=== PATIENT | male | born 1940 | race Caucasian/White ===

== ENCOUNTER 2017-07-19 17:53 | Inpatient (IN) | payer MEDICARE, MEDICAID ==
[~2017-07-19] VITALS: Ht 180.3 cm; Wt 52.2 kg
[2017-07-19 18:07] VITALS: BP 144/74
[2017-07-19] MEDS ORDERED: Unasyn 3gm Inj IVPB ONE (18:15)
--- NOTE | 2017-07-19 18:18 | Emergency Room Report ---
History of Present Illness General Chief Complaint: Male Urogenital Problems Source: Patient, Medical Record Present Illness HPI 77yo M sent fro SNF for MDRO UTI, sensitive to unasyn. Patient has no complaints. Per report, no documented fevers either. No urinary retention or dysuria. Dr. Cramer sent patient. Allergies: Coded Allergies: No Known Allergies (Unverified , 07/19/17) Patient History Past Medical History: see triage record Reviewed Nursing Documentation: PMH: Agreed; PSxH: Agreed Nursing Documentation-PMH Past Medical History: No History, Except For Hx Diabetes: Yes Review of Systems All Other Systems: negative except mentioned in HPI Physical Exam Vital Signs Date Time Temp Pulse Resp B/P (MAP) Pulse Ox O2 Delivery O2 Flow Rate FiO2 07/19/17 17:55 97.3 75 20 144/74 96 Room Air 97.3 Sp02 EP Interpretation: reviewed, normal General Appearance: no apparent distress, alert, non-toxic Head: normocephalic Eyes: bilateral eye normal inspection, bilateral eye PERRL, bilateral eye EOMI ENT: normal ENT inspection, hearing grossly normal, normal pharynx, no angioedema, normal voice, moist mucus membranes Neck: normal inspection, full range of motion, supple, supple/symm/no masses Respiratory: chest non-tender, lungs clear, normal breath sounds, chest symmetrical, palpation of chest normal Cardiovascular #1: normal peripheral pulses, regular rate, rhythm Cardiovascular #2: 2+ radial (R), 2+ radial (L) Gastrointestinal: normal inspection, non tender, soft, no mass, no guarding, no rebound Rectal: deferred Genitourinary: normal inspection, no CVA tenderness, penis normal, scrotum normal Musculoskeletal: back normal, gait/station normal, normal range of motion, non- tender, no calf tenderness Neurologic: alert, responsive, clinical research analyst III-XII nml as tested, motor strength/tone normal, sensory intact, speech normal Psychiatric: judgement/insight normal, memory normal, mood/affect normal, no suicidal/homicidal ideation Skin: normal color, no rash, warm/dry, normal turgor Lymphatic: no adenopathy Medical Decision Making Reaction to Intervention: Improved Diagnostic Impression: Primary Impression: Urinary tract infection ER Course Patient with drug resistant UTI, will be given a dose of IV antibiotics, follow- up with Dr. Samir Cramer. Urine cultures showed Proteus that is sensitive to bactrim so will dc with this. normal wbc, culture sent with patient, Dr. Samir Cramer not answering, pateitn stable, will dc with bactrim dc 1 tab po bid x 28d Last Vital Signs Date Time Temp Pulse Resp B/P (MAP) Pulse Ox O2 Delivery O2 Flow Rate FiO2 07/19/17 18:07 97.3 20 144/74 96 Room Air 97.3 07/19/17 17:55 75 Status: unchanged Disposition: HOME, SELF-CARE Condition: Stable KANG DAVIS M.D Jul 19, 2017 18:18
[2017-07-19 18:43] LABS: BASOPHILS % (AUTO) 1.4 % (0.0-2.0); EOSINOPHILS % (AUTO) 6.3 % (0.0-3.0); HEMATOCRIT 38.6 % (42.0-52.0); HEMOGLOBIN 12.9 G/DL (14.2-18.0); LYMPHOCYTES % (AUTO) 30.3 % (20.0-45.0); MEAN CORPUSCULAR VOLUME 85 FL (80-99); MONOCYTES % (AUTO) 9.7 % (1.0-10.0); NEUTROPHILS % (AUTO) 52.3 % (45.0-75.0); PLATELET COUNT 356 K/UL (150-450); RED BLOOD COUNT 4.55 M/UL (4.70-6.10); RED CELL DISTRIBUTION WIDTH 14.9 % (11.6-14.8); WHITE BLOOD COUNT 6.7 K/UL (4.8-10.8)
[2017-07-19 18:55] LABS: APPEARANCE,URINE CLEAR; BILIRUBIN, URINE NEGATIVE (NEGATIVE); COLOR,URINE PALE YELLOW; GLUCOSE, URINE (UA) NEGATIVE (NEGATIVE); KETONES,URINE NEGATIVE (NEGATIVE); LEUKOCYTE ESTERASE ,URINE 1+ (NEGATIVE); NITRITE,URINE NEGATIVE (NEGATIVE); PH,URINE 6 (4.5-8.0); PROTEIN,URINE NEGATIVE (NEGATIVE); UROBILINOGEN,URINE NORMAL MG/DL (0.0-1.0)
[2017-07-19 18:58] LABS: ANION GAP 6 mmol/L (5-15); BLOOD UREA NITROGEN 34 mg/dL (7-18); CALCIUM 8.7 MG/DL (8.5-10.1); CARBON DIOXIDE 28 MMOL/L (21-32); CHLORIDE 103 MMOL/L (98-107); CREATININE 0.9 MG/DL (0.55-1.30); POTASSIUM 4.4 MMOL/L (3.5-5.1); SODIUM 137 MMOL/L (136-145)
[2017-07-19] MEDS ORDERED: Unasyn 3gm/NS 110ml IVPB ONE ×2 (19:00)
[2017-07-19] MEDS ORDERED: BACTRIM DS TAB1 EAC1 ORAL (19:04)
[2017-07-19] MEDS ORDERED: TOBRAMYCIN IV SCH (19:30)
[2017-07-19] MEDS ORDERED: NS IV SCH (19:30)
[2017-07-19] MEDS ORDERED: TOBRAMYCIN IV ONE (22:00)
[2017-07-19] MEDS ORDERED: NS IV ONE (22:00)
[2017-07-20] VITALS: BP 116/59
[2017-07-20] MEDS ORDERED: DOCUSATE SODIU100 MG ORAL (00:52)
[2017-07-20] MEDS ORDERED: MULTIVITAMINS1 EAC8 ORAL (00:52)
[2017-07-20] MEDS ORDERED: MELATONIN1 M2 PO (00:52)
[2017-07-20] MEDS ORDERED: TYLENOL650 MG/20. ORAL (00:52)
[2017-07-20] MEDS ORDERED: TAMSULOSIN HCL0.4 MG ORAL (00:52)
[2017-07-20] MEDS ORDERED: ZOFRAN4 M3 ORAL (00:52)
[2017-07-20] MEDS ORDERED: NORCO 5-325 TA1 EAC1 ORAL (00:52)
[2017-07-20] MEDS ORDERED: NITROFURANTOIN25 MG PO (00:59)
[2017-07-20] MEDS ORDERED: Acetaminophen 650mg/20.3ml ORAL PRN (01:00)
[2017-07-20] MEDS ORDERED: Norco 5mg/325mg tab ORAL PRN (01:00)
[2017-07-20] MEDS: D5 1/2NS 1,000 ML IV SCH ×2 (01:21→16:40)
[2017-07-20] MEDS: Ertapenem 1 GM in NS 55 ML IVPB SCH ×2 (01:22→20:50)
[2017-07-20 04:00] VITALS: BP 107/52
[2017-07-20 08:00] VITALS: BP 104/48
[2017-07-20] MEDS: Multivitamin w/Minerals tab ORAL SCH (08:37)
[2017-07-20] MEDS: Docusate 100mg cap ORAL SCH ×2 (08:37→18:00)
[2017-07-20 09:06] LABS: BASOPHILS % (AUTO) 1.4 % (0.0-2.0); EOSINOPHILS % (AUTO) 6.8 % (0.0-3.0); HEMATOCRIT 38.9 % (42.0-52.0); HEMOGLOBIN 13.2 G/DL (14.2-18.0); LYMPHOCYTES % (AUTO) 29.4 % (20.0-45.0); MEAN CORPUSCULAR VOLUME 85 FL (80-99); MONOCYTES % (AUTO) 9.1 % (1.0-10.0); NEUTROPHILS % (AUTO) 53.4 % (45.0-75.0); PLATELET COUNT 381 K/UL (150-450); RED BLOOD COUNT 4.59 M/UL (4.70-6.10); WHITE BLOOD COUNT 5.5 K/UL (4.8-10.8)
[2017-07-20 09:21] LABS: ANION GAP 7 mmol/L (5-15); BLOOD UREA NITROGEN 25 mg/dL (7-18); CALCIUM 9.1 MG/DL (8.5-10.1); CARBON DIOXIDE 27 MMOL/L (21-32); CHLORIDE 105 MMOL/L (98-107); SODIUM 139 MMOL/L (136-145)
[2017-07-20 12:00] VITALS: BP 110/51
--- NOTE | 2017-07-20 14:57 | Consultation ---
Consult Note Consult Note [id number] Gino James MD Jul 20, 2017 14:57
[2017-07-20 16:00] VITALS: BP 110/59
--- NOTE | 2017-07-20 17:30 | History and Physical Report ---
DATE OF ADMISSION: 07/20/2017 TIME: 1 p.m. CHIEF COMPLAINT: Resistant urinary tract infection, weakness, and lethargy. BRIEF HISTORY: This is a 77-year-old male from [facility], presented with increased lethargy and weakness. Urine culture showed resistant urinary tract infection, sent to [facility], diagnosed with the above, and admitted to medical floor for further treatment. Currently, calm in bed. No complaint. No chest pain. No shortness of breath. No nausea, vomiting, or diarrhea. PAST MEDICAL HISTORY: Includes weakness. PAST SURGICAL HISTORY: Appendectomy and hernia. MEDICATION: Include Flomax, Colace, hydrocodone, Zofran, and ertapenem. ALLERGIES: Denies. SOCIAL HISTORY: Positive smoking. No alcohol. No intravenous drug abuse. FAMILY HISTORY: Noncontributory. PHYSICAL EXAMINATION: GENERAL: Calm in bed, oriented x2, and in no acute distress. VITAL SIGNS: Temperature 97, pulse 94, respirations 19, and blood pressure 110/51. CARDIOVASCULAR: No murmurs. LUNGS: Distant and clear. ABDOMEN: Bowel sounds positive. Nontender and nondistended. EXTREMITIES: No cyanosis, clubbing, or edema. NEUROLOGIC: The patient moves all extremities. Slightly weak. LABORATORY DATA: Labs at this time show hemoglobin 13.2, otherwise CBC is normal. BMP show BUN 25, otherwise BMP is normal. Urinalysis, 1+ leukocyte esterase. ASSESSMENT: 1. Resistant urinary tract infection. 2. Weakness. 3. Lethargy. 4. Sepsis. 5. Anemia. PLAN: 1. Antibiotics per Infectious Disease. 2. OT, PT, and dietary evaluation. 3. CBC and BMP in the morning. 4. We will continue to follow this patient medically. Samir Cramer D.O. DR: CINDA JOB#: [id number] CC:
[2017-07-20 20:00] VITALS: BP 122/50
[2017-07-20] MEDS: Tamsulosin 0.4mg cap ORAL SCH (20:50)
[2017-07-21] VITALS: BP 118/86
[2017-07-21 04:00] VITALS: BP 109/43
[2017-07-21 06:37] LABS: BASOPHILS % (AUTO) 1.2 % (0.0-2.0); EOSINOPHILS % (AUTO) 4.5 % (0.0-3.0); HEMATOCRIT 38.9 % (42.0-52.0); LYMPHOCYTES % (AUTO) 25.5 % (20.0-45.0); MEAN CORPUSCULAR VOLUME 86 FL (80-99); MONOCYTES % (AUTO) 10.4 % (1.0-10.0); NEUTROPHILS % (AUTO) 58.4 % (45.0-75.0); PLATELET COUNT 359 K/UL (150-450); RED BLOOD COUNT 4.53 M/UL (4.70-6.10); RED CELL DISTRIBUTION WIDTH 15.1 % (11.6-14.8); WHITE BLOOD COUNT 7.5 K/UL (4.8-10.8)
[2017-07-21 07:12] LABS: ANION GAP 5 mmol/L (5-15); BLOOD UREA NITROGEN 27 mg/dL (7-18); CALCIUM 8.9 MG/DL (8.5-10.1); CARBON DIOXIDE 29 MMOL/L (21-32); CHLORIDE 106 MMOL/L (98-107); POTASSIUM 4.5 MMOL/L (3.5-5.1); SODIUM 140 MMOL/L (136-145)
[2017-07-21 08:00] VITALS: BP 109/45
[2017-07-21] MEDS: Multivitamin w/Minerals tab ORAL SCH (08:54)
[2017-07-21] MEDS: Docusate 100mg cap ORAL SCH ×2 (08:54→17:26)
[2017-07-21] MEDS: D5 1/2NS 1,000 ML IV SCH (08:58)
[2017-07-21 12:00] VITALS: BP 109/53
--- NOTE | 2017-07-21 14:32 | General Progress Note ---
Assessment/Plan Problem List: (1) Weak ICD Codes: R53.1 - Weakness SNOMED: 02662305 (2) Sepsis ICD Codes: A41.9 - Sepsis, unspecified organism SNOMED: 00160528 (3) Anemia ICD Codes: D64.9 - Anemia, unspecified SNOMED: 644820412 (4) Urinary tract infection ICD Codes: N39.0 - Urinary tract infection, site not specified SNOMED: 15595768 Status: stable, progressing, tolerating diet Assessment/Plan ot pt diet abx cbc bmp am Subjective Constitutional: Reports: weakness Allergies: Coded Allergies: No Known Allergies (Unverified , 07/19/17) All Systems: reviewed and negative except above Subjective sleepy calm Objective Last 24 Hour Vital Signs Date Time Temp Pulse Resp B/P (MAP) Pulse Ox O2 Delivery O2 Flow Rate FiO2 07/21/17 12:00 97.2 73 20 109/53 97 Room Air 97.2 07/21/17 08:00 97.2 79 20 109/45 96 Room Air 97.2 07/21/17 04:00 97.8 83 19 109/43 98 Room Air 97.8 07/21/17 00:00 97.9 98 19 118/86 98 Room Air 97.9 07/20/17 20:00 98.4 66 19 122/50 97 Room Air 98.4 07/20/17 16:00 97.8 82 17 110/59 97 Room Air 97.8 Intake and Output 07/20/17 07/21/17 19:00 07:00 Intake Total 720 ml 160 ml Balance 720 ml 160 ml Intake Oral 120 ml IV Total 720 ml 40 ml # Voids 4 2 Laboratory Tests 07/21/17 05:20: White Blood Count 7.5, Red Blood Count 4.53L, Hemoglobin 13.0L, Hematocrit 38.9L , Mean Corpuscular Volume 86, Mean Corpuscular Hemoglobin 28.8, Mean Corpuscular Hemoglobin Concent 33.5, Red Cell Distribution Width 15.1H, Platelet Count 359, Mean Platelet Volume 6.2L, Neutrophils (%) (Auto) 58.4, Lymphocytes (%) (Auto) 25.5, Monocytes (%) (Auto) 10.4H, Eosinophils (%) (Auto) 4.5H, Basophils (%) (Auto) 1.2, Sodium Level 140, Potassium Level 4.5, Chloride Level 106, Carbon Dioxide Level 29, Anion Gap 5, Blood Urea Nitrogen 27H, Creatinine 1.0, Estimat Glomerular Filtration Rate , Glucose Level 99, Calcium Level 8.9 Height (Feet): 5 Height (Inches): 11.00 Weight (Pounds): 115 General Appearance: lethargic EENT: normal ENT inspection Neck: normal alignment Cardiovascular: normal peripheral pulses, normal rate, regular rhythm Respiratory/Chest: chest wall non-tender, lungs clear, normal breath sounds Abdomen: normal bowel sounds, non tender, soft Extremities: normal inspection Edema: no edema noted Arm (L), no edema noted Arm (R), no edema noted Leg (L), no edema noted Leg (R), no edema noted Pedal (L), no edema noted Pedal (R), no edema noted Generalized Neurologic: motor weakness Skin: normal pigmentation, warm/dry KRISTINA SCHULTZ Jul 21, 2017 14:32
[2017-07-21 16:00] VITALS: BP 104/54
--- NOTE | 2017-07-21 19:36 | Infectious Diseases Prog Note ---
Assessment/Plan Assessment/Plan ASSESSMENT: The patient is a 77-year-old male with: Probable sepsis. Probable urinary tract infection (UCX ( SNF ) MDR Proteus mirabilis) Rule out osteomyelitis of the right heel. Diabetes. PLAN: continue the patient on ertapenem d# 3 CBC and BMP. Monitor cultures (urine/wound). MRI of the right foot to rule out osteomyelitis. Subjective Constitutional: Denies: no symptoms, fever, chills, fatigue, anorexia, drenching sweats, other Allergies: Coded Allergies: No Known Allergies (Unverified , 07/19/17) Objective Vital Signs Last 24 Hour Vital Signs Date Time Temp Pulse Resp B/P (MAP) Pulse Ox O2 Delivery O2 Flow Rate FiO2 07/21/17 16:00 97.5 80 19 104/54 96 Room Air 97.5 07/21/17 12:00 97.2 73 20 109/53 97 Room Air 97.2 07/21/17 08:00 97.2 79 20 109/45 96 Room Air 97.2 07/21/17 04:00 97.8 83 19 109/43 98 Room Air 97.8 07/21/17 00:00 97.9 98 19 118/86 98 Room Air 97.9 07/20/17 20:00 98.4 66 19 122/50 97 Room Air 98.4 Height (Feet): 5 Height (Inches): 11.00 Weight (Pounds): 115 HEENT: anicteric Respiratory/Chest: no respiratory distress Cardiovascular: regular rhythm Abdomen: no mass Microbiology Date/Time Source Procedure Growth Status 07/20/17 06:15 Wound Gram Stain Pending Resulted 07/20/17 06:15 Wound Culture - Preliminary Staphylococcus Aureus Resulted 07/19/17 18:40 Urine,Clean Catch Urine Culture - Preliminary Mixed Urogenital Contaminants Resulted Laboratory Tests Test 07/21/17 05:20 White Blood Count 7.5 K/UL (4.8-10.8) Red Blood Count 4.53 M/UL (4.70-6.10) L Hemoglobin 13.0 G/DL (14.2-18.0) L Hematocrit 38.9 % (42.0-52.0) L Mean Corpuscular Volume 86 FL (80-99) Mean Corpuscular Hemoglobin 28.8 PG (27.0-31.0) Mean Corpuscular Hemoglobin Concent 33.5 G/DL (32.0-36.0) Red Cell Distribution Width 15.1 % (11.6-14.8) H Platelet Count 359 K/UL (150-450) Mean Platelet Volume 6.2 FL (6.5-10.1) L Neutrophils (%) (Auto) 58.4 % (45.0-75.0) Lymphocytes (%) (Auto) 25.5 % (20.0-45.0) Monocytes (%) (Auto) 10.4 % (1.0-10.0) H Eosinophils (%) (Auto) 4.5 % (0.0-3.0) H Basophils (%) (Auto) 1.2 % (0.0-2.0) Sodium Level 140 MMOL/L (136-145) Potassium Level 4.5 MMOL/L (3.5-5.1) Chloride Level 106 MMOL/L (98-107) Carbon Dioxide Level 29 MMOL/L (21-32) Anion Gap 5 mmol/L (5-15) Blood Urea Nitrogen 27 mg/dL (7-18) H Creatinine 1.0 MG/DL (0.55-1.30) Estimat Glomerular Filtration Rate mL/min (>60) Glucose Level 99 MG/DL (74-106) Calcium Level 8.9 MG/DL (8.5-10.1) Current Medications Medications (Trade) Dose Ordered Sig/Nicole Route PRN Reason Start Time Stop Time Status Last Admin Dose Admin Acetaminophen (Tylenol) 650 mg Q4HR PRN ORAL Mild Pain/Temp > 100.5 07/20/17 01:00 08/19/17 00:59 Acetaminophen/ Hydrocodone Bitart ([place] 5/325) 1 tab Q4H PRN ORAL Moderate Pain (Pain Scale 4-6) 07/20/17 01:00 07/27/17 00:59 Dextrose/Sodium Chloride 1,000 ml @ 60 mls/hr [id number] IV 07/20/17 00:00 08/19/17 00:00 07/20/17 01:21 Docusate Sodium (Colace) 100 mg TWICE A DAY ORAL 07/20/17 09:00 08/19/17 08:59 07/21/17 08:54 Ertapenem 1 gm/ Sodium Chloride 110 ml @ 220 mls/hr Q24H IVPB 07/21/17 22:30 07/26/17 22:29 Multivitamins Therapeutic (Therapeutic Multivitamin) 1 ea DAILY ORAL 07/20/17 09:00 08/19/17 08:59 07/21/17 08:54 Ondansetron HCl (Zofran) 4 mg Q6H PRN ORAL Nausea & Vomiting 07/20/17 01:00 08/19/17 00:59 Tamsulosin HCl (Flomax) 0.4 mg BEDTIME ORAL 07/20/17 21:00 08/19/17 20:59 07/20/17 20:50 Gino James MD Jul 21, 2017 19:36
[2017-07-21 20:00] VITALS: BP 127/47
[2017-07-21] MEDS: Tamsulosin 0.4mg cap ORAL SCH (21:00)
[2017-07-21] MEDS: Ertapenem 1 GM in NS 110 ML IVPB SCH (21:01)
[2017-07-22] VITALS: BP 116/45
--- NOTE | 2017-07-22 01:15 | Consultation ---
DATE OF CONSULTATION: 07/21/2017 INFECTIOUS DISEASE CONSULTATION CONSULTING PHYSICIAN: Gino James M.D. REQUESTING PHYSICIAN: Samir Cramer D.O. REASON FOR CONSULTATION: Evaluation of the patient for urinary tract infection, antibiotic management, and sepsis. HISTORY OF PRESENT ILLNESS: This is a 77-year-old male with multiple medical problems, who was admitted to this medical center for lethargicness and weakness. The patient has a recent urine culture in half-way that showed evidence of multiple drug-resistant Proteus mirabilis more than 100,000 colonies. The patient was admitted here with impression of UTI and sepsis. An Infectious Disease consultation has been requested for further evaluation of the patient's antibiotic management. PAST MEDICAL HISTORY: Diabetes. MEDICATIONS: The patient has been started on ertapenem. ALLERGIES: No known drug allergies. SOCIAL HISTORY: The patient lives in a half-way. FAMILY HISTORY: Not available. REVIEW OF SYSTEMS: The patient is a poor historian. PHYSICAL EXAMINATION: VITAL SIGNS: Temperature 97.5 degrees, blood pressure 104/54, pulse 86, respiratory rate 18. HEENT: No pale conjunctivae. No icterus. NECK: No lymphadenopathy. CHEST: Clear. HEART: S1 and S2. ABDOMEN: Soft. EXTREMITIES: The patient has an unstageable right heel wound with surrounding erythema. LABORATORY DATA: White blood cells 7.5, hemoglobin 13, platelets 259. UA showed 2 to 4 white blood cells. BUN 27, creatinine 1. Urine culture is pending. Wound culture is pending. ASSESSMENT: The patient is a 77-year-old male with: 1. Probable sepsis. 2. Probable urinary tract infection (multiple drug-resistant Proteus mirabilis). 3. Rule out osteomyelitis of the right heel. PLAN: 1. We will continue the patient on ertapenem. 2. CBC and BMP. 3. Monitor cultures (urine/wound). 4. MRI of the right foot to rule out osteomyelitis. 5. Based on the patient's clinical course and labs, we will do further recommendations. Thank you, Dr. Samir Cramer, for allowing me to participate in the care of this patient. I will follow the patient with you during this hospitalization. Gino James M.D. DR: Kelly JOB#: [id number] CC:
[2017-07-22] MEDS: D5 1/2NS 1,000 ML IV SCH ×2 (02:22→17:45)
[2017-07-22 04:00] VITALS: BP 121/73
--- NOTE | 2017-07-22 07:30 | Wound Care Consultation ---
Wound Assessment Wound Assessment #1: Wound Number: 1 Wound Present on Admission: Yes New Wound: No Status Change of Wound: No Wound Location Body Site Modif: left Wound Location Body Site: trochanter Wound Type: pressure ulcer Sara Test: Does not Sara Pressure Ulcer Stage: III Wound Thickness: Full Thickness Wound Length: 2.5 Wound Width: 1.5 Wound Depth: 0.3 Percent of Wound [place]/Red: 100 Wound Drainage Description: Serosanguineous Wound Drainage Amount: Moderate Wound Drainage Odor: None/Absent Tissue Surrounding Wound: Erythemic Wound General Appearance: Reddened, Draining Wound Assessment #2: Wound Number: 2 Wound Present on Admission: Yes New Wound: No Status Change of Wound: No Wound Location Body Site Modif: left Wound Location Body Site: ischial tuberosity Wound Type: pressure ulcer Sara Test: Does not Sara Pressure Ulcer Stage: III Wound Thickness: Partial Thickness Wound Length: 2.0 Wound Width: 2.0 Wound Depth: 0.3 Percent of Wound [place]/Red: 100 Wound Drainage Description: Serosanguineous Wound Drainage Amount: Moderate Wound Drainage Odor: None/Absent Tissue Surrounding Wound: Erythemic Wound General Appearance: Reddened, Draining Wound Assessment #3: Wound Number: 3 Wound Present on Admission: Yes New Wound: No Status Change of Wound: No Wound Location Body Site Modif: right Wound Location Body Site: heel Wound Type: pressure ulcer Sara Test: Does not Sara Pressure Ulcer Stage: Unstageable Wound Thickness: Full Thickness Wound Length: 4.0 Wound Width: 3.5 Wound Depth: utd Percent of Wound Black/Brown: 100 Wound Drainage Description: Serosanguineous Wound Drainage Amount: Scant Wound Drainage Odor: None/Absent Tissue Surrounding Wound: Erythemic Wound General Appearance: Blackened, Draining Wound Assessment #4: Wound Number: 4 Wound Present on Admission: Yes New Wound: No Status Change of Wound: No Wound Location Body Site Modif: left Wound Location Body Site: heel Wound Type: pressure ulcer Sara Test: Does not Sara Pressure Ulcer Stage: Deep Tissue Injury Wound Thickness: Full Thickness Wound Length: 2.0 Wound Width: 3.5 Wound Depth: utd Percent of Wound Purple/Maroon: 100 Wound Drainage Amount: None Wound Drainage Odor: None/Absent Tissue Surrounding Wound: Intact Wound General Appearance: Reddened - maroon/purple Wound Assessment #5: Wound Number: 5 Wound Present on Admission: Yes New Wound: No Status Change of Wound: No Wound Location Body Site: perineal area Wound Type: chemical burn Sara Test: Does not Sara Percent of Wound [place]/Red: 100 Wound Drainage Amount: None Wound Drainage Odor: None/Absent Tissue Surrounding Wound: Erythemic Wound General Appearance: Reddened Wound Assessment #6: Wound Number: 6 Wound Present on Admission: Yes New Wound: No Status Change of Wound: No Wound Location Body Site Modif: left, lateral Wound Location Body Site: elbow Sara Test: Does not Sara Traumatic Injury Wounds: Skin Tear Wound Thickness: Partial Thickness Wound Length: 1.0 Wound Width: 1.0 Wound Depth: less than 0.1 Percent of Wound [place]/Red: 100 Wound Drainage Amount: None Wound Drainage Odor: None/Absent Tissue Surrounding Wound: Erythemic Wound General Appearance: Reddened Wound Comment #1 Left trochanter stage III pressure ulcer #2 Left ischial tuberosity stage III pressure ulcer #3 Right heel unstageable pressure ulcer with black eschar adhered to wound bed #4 Left heel DTI pressure ulcer #5 Perineal area chemical burn #6 Skin tear on left lateral elbow Recommendation -Local wound care per protocol -keep clean and dry -Offload both heels -Heel protector on both heels -Optimize nutrition -Low air loss mattress -Turn and reposition -Assess and f/u accordingly for any changes NISREEN PIÑA RN Jul 22, 2017 07:30
[2017-07-22 07:45] LABS: BASOPHILS % (AUTO) 1.4 % (0.0-2.0); EOSINOPHILS % (AUTO) 5.4 % (0.0-3.0); HEMATOCRIT 39.5 % (42.0-52.0); HEMOGLOBIN 13.4 G/DL (14.2-18.0); LYMPHOCYTES % (AUTO) 25.9 % (20.0-45.0); MEAN CORPUSCULAR VOLUME 85 FL (80-99); MONOCYTES % (AUTO) 8.9 % (1.0-10.0); NEUTROPHILS % (AUTO) 58.4 % (45.0-75.0); PLATELET COUNT 359 K/UL (150-450); RED BLOOD COUNT 4.66 M/UL (4.70-6.10); WHITE BLOOD COUNT 6.9 K/UL (4.8-10.8)
[2017-07-22 08:00] VITALS: BP 120/70
[2017-07-22 08:10] LABS: ANION GAP 7 mmol/L (5-15); BLOOD UREA NITROGEN 19 mg/dL (7-18); CALCIUM 8.7 MG/DL (8.5-10.1); CARBON DIOXIDE 27 MMOL/L (21-32); CHLORIDE 105 MMOL/L (98-107); POTASSIUM 4.3 MMOL/L (3.5-5.1); SODIUM 139 MMOL/L (136-145)
[2017-07-22] MEDS: Docusate 100mg cap ORAL SCH ×2 (09:00→17:29)
[2017-07-22] MEDS: Multivitamin w/Minerals tab ORAL SCH (09:21)
--- NOTE | 2017-07-22 11:28 | Infectious Diseases Prog Note ---
Assessment/Plan Assessment/Plan ASSESSMENT: The patient is a 77-year-old male with: Probable sepsis, SP Probable urinary tract infection (UCX ( SNF ) MDR Proteus mirabilis) repeat UCx: mixed GNR Rule out osteomyelitis of the right heel. WND CX : Staph A SP Lethargy Diabetes. PLAN: continue the patient on ertapenem d# 3 / 5 CBC and BMP. Monitor cultures (urine/wound). MRI of the right foot to rule out osteomyelitis. Subjective Constitutional: Denies: no symptoms, fever, chills, fatigue, anorexia, drenching sweats, other Allergies: Coded Allergies: No Known Allergies (Unverified , 07/19/17) Objective Vital Signs Last 24 Hour Vital Signs Date Time Temp Pulse Resp B/P (MAP) Pulse Ox O2 Delivery O2 Flow Rate FiO2 07/22/17 08:00 98.0 73 20 120/70 96 Room Air 98.0 07/22/17 04:00 97.4 71 19 121/73 96 Room Air 97.4 07/22/17 00:00 97.2 72 19 116/45 96 Room Air 97.2 07/21/17 20:00 97.3 81 19 127/47 96 Room Air 97.3 07/21/17 16:00 97.5 80 19 104/54 96 Room Air 97.5 07/21/17 12:00 97.2 73 20 109/53 97 Room Air 97.2 Height (Feet): 5 Height (Inches): 11.00 Weight (Pounds): 115 HEENT: atraumatic Respiratory/Chest: no accessory muscle use Cardiovascular: regular rhythm Abdomen: soft, non tender Microbiology Date/Time Source Procedure Growth Status 07/20/17 06:15 Wound Gram Stain Pending Resulted 07/20/17 06:15 Wound Culture - Preliminary Staphylococcus Aureus Resulted 07/20/17 15:12 Nasal Nares MRSA Culture - Final NO METHICILLIN RESISTANT STAPH AUREUS... Complete 07/19/17 18:40 Urine,Clean Catch Urine Culture - Final Mixed Urogenital Contaminants Complete 07/19/17 15:12 Rectum VRE Culture - Final NO VANCOMYCIN RESISTANT ENTEROCOCCUS ... Complete Laboratory Tests Test 07/22/17 05:50 White Blood Count 6.9 K/UL (4.8-10.8) Red Blood Count 4.66 M/UL (4.70-6.10) L Hemoglobin 13.4 G/DL (14.2-18.0) L Hematocrit 39.5 % (42.0-52.0) L Mean Corpuscular Volume 85 FL (80-99) Mean Corpuscular Hemoglobin 28.7 PG (27.0-31.0) Mean Corpuscular Hemoglobin Concent 33.8 G/DL (32.0-36.0) Red Cell Distribution Width 15.0 % (11.6-14.8) H Platelet Count 359 K/UL (150-450) Mean Platelet Volume 5.9 FL (6.5-10.1) L Neutrophils (%) (Auto) 58.4 % (45.0-75.0) Lymphocytes (%) (Auto) 25.9 % (20.0-45.0) Monocytes (%) (Auto) 8.9 % (1.0-10.0) Eosinophils (%) (Auto) 5.4 % (0.0-3.0) H Basophils (%) (Auto) 1.4 % (0.0-2.0) Sodium Level 139 MMOL/L (136-145) Potassium Level 4.3 MMOL/L (3.5-5.1) Chloride Level 105 MMOL/L (98-107) Carbon Dioxide Level 27 MMOL/L (21-32) Anion Gap 7 mmol/L (5-15) Blood Urea Nitrogen 19 mg/dL (7-18) H Creatinine 1.0 MG/DL (0.55-1.30) Estimat Glomerular Filtration Rate mL/min (>60) Glucose Level 90 MG/DL (74-106) Calcium Level 8.7 MG/DL (8.5-10.1) Current Medications Medications (Trade) Dose Ordered Sig/Nicole Route PRN Reason Start Time Stop Time Status Last Admin Dose Admin Acetaminophen (Tylenol) 650 mg Q4HR PRN ORAL Mild Pain/Temp > 100.5 07/20/17 01:00 08/19/17 00:59 Acetaminophen/ Hydrocodone Bitart ([place] 5/325) 1 tab Q4H PRN ORAL Moderate Pain (Pain Scale 4-6) 07/20/17 01:00 07/27/17 00:59 Dextrose/Sodium Chloride 1,000 ml @ 60 mls/hr [id number] IV 07/20/17 00:00 08/19/17 00:00 07/22/17 02:22 Docusate Sodium (Colace) 100 mg TWICE A DAY ORAL 07/20/17 09:00 08/19/17 08:59 07/21/17 08:54 Ertapenem 1 gm/ Sodium Chloride 110 ml @ 220 mls/hr Q24H IVPB 07/21/17 22:30 07/26/17 22:29 07/21/17 21:01 Multivitamins Therapeutic (Therapeutic Multivitamin) 1 ea DAILY ORAL 07/20/17 09:00 08/19/17 08:59 07/22/17 09:21 Ondansetron HCl (Zofran) 4 mg Q6H PRN ORAL Nausea & Vomiting 07/20/17 01:00 08/19/17 00:59 Tamsulosin HCl (Flomax) 0.4 mg BEDTIME ORAL 07/20/17 21:00 08/19/17 20:59 07/21/17 21:00 Gino James MD Jul 22, 2017 11:28
[2017-07-22 12:00] VITALS: BP 125/77
--- NOTE | 2017-07-22 13:07 | General Progress Note ---
Assessment/Plan Problem List: (1) Weak ICD Codes: R53.1 - Weakness SNOMED: 24840283 (2) Sepsis ICD Codes: A41.9 - Sepsis, unspecified organism SNOMED: 46147727 (3) Anemia ICD Codes: D64.9 - Anemia, unspecified SNOMED: 351563999 (4) Urinary tract infection ICD Codes: N39.0 - Urinary tract infection, site not specified SNOMED: 34114381 Status: stable, progressing, tolerating diet Assessment/Plan ot pt diet abx dc if clear by id Subjective Constitutional: Reports: weakness Allergies: Coded Allergies: No Known Allergies (Unverified , 07/19/17) All Systems: reviewed and negative except above Subjective sleepy calm Objective Last 24 Hour Vital Signs Date Time Temp Pulse Resp B/P (MAP) Pulse Ox O2 Delivery O2 Flow Rate FiO2 07/22/17 12:00 97.7 75 20 125/77 97 Room Air 97.7 07/22/17 08:00 98.0 73 20 120/70 96 Room Air 98.0 07/22/17 04:00 97.4 71 19 121/73 96 Room Air 97.4 07/22/17 00:00 97.2 72 19 116/45 96 Room Air 97.2 07/21/17 20:00 97.3 81 19 127/47 96 Room Air 97.3 07/21/17 16:00 97.5 80 19 104/54 96 Room Air 97.5 Intake and Output 07/21/17 07/22/17 19:00 07:00 Intake Total 590 ml 470 ml Output Total 250 ml Balance 340 ml 470 ml Intake Oral 590 ml 120 ml IV Total 350 ml Output Urine Total 250 ml # Voids 3 3 # Bowel Movements 1 1 Laboratory Tests 07/22/17 05:50: White Blood Count 6.9, Red Blood Count 4.66L, Hemoglobin 13.4L, Hematocrit 39.5L , Mean Corpuscular Volume 85, Mean Corpuscular Hemoglobin 28.7, Mean Corpuscular Hemoglobin Concent 33.8, Red Cell Distribution Width 15.0H, Platelet Count 359, Mean Platelet Volume 5.9L, Neutrophils (%) (Auto) 58.4, Lymphocytes (%) (Auto) 25.9, Monocytes (%) (Auto) 8.9, Eosinophils (%) (Auto) 5.4H, Basophils (%) (Auto) 1.4, Sodium Level 139, Potassium Level 4.3, Chloride Level 105, Carbon Dioxide Level 27, Anion Gap 7, Blood Urea Nitrogen 19H, Creatinine 1.0, Estimat Glomerular Filtration Rate , Glucose Level 90, Calcium Level 8.7 Height (Feet): 5 Height (Inches): 11.00 Weight (Pounds): 115 General Appearance: lethargic EENT: normal ENT inspection Neck: normal alignment Cardiovascular: normal peripheral pulses, normal rate, regular rhythm Respiratory/Chest: chest wall non-tender, lungs clear, normal breath sounds Abdomen: normal bowel sounds, non tender, soft Extremities: normal inspection Edema: no edema noted Arm (L), no edema noted Arm (R), no edema noted Leg (L), no edema noted Leg (R), no edema noted Pedal (L), no edema noted Pedal (R), no edema noted Generalized Neurologic: responsive, motor weakness Skin: normal pigmentation, warm/dry KRISTINA SCHULTZ Jul 22, 2017 13:07
[2017-07-22 16:00] VITALS: BP 105/49
--- NOTE | 2017-07-22 16:21 | Diagnostic Imaging Report ---
Indication: Large right heel wound, possible osteomyelitis Technique: Sagittal, coronal, and axial T 1 fast spin echo and fast spin echo STIR images of the hindfoot Comparison: none Findings: On the medial plantar surface of the heel pad, below the calcaneal tuberosity, there is a soft tissue defect, consistent with stated clinical history of foot ulcer. Deep to it, there is abnormal STIR signal which is fairly discrete. It appears Hospital and on the sagittal sequences, less so on the coronal sequences. Overall, this area measures 3.7 cm transverse by 3.7 cm AP by about 1.3 cm craniocaudad. A much smaller area of this is seen at the more medial aspect, measures 14 mm craniocaudad x 7 transverse x 26 mm AP and appears confluent on all of the sequences. Beyond the limits of this area, there is not much subcutaneous fat edema. No bone marrow abnormality of the calcaneus or any of the other bones is demonstrated. The large tendons appear grossly intact. Impression: No bone marrow edema to suggest osteomyelitis demonstrated. Medial heel pad superficial defect consistent with a clinical history of ulcer. Deep to this, there is a 3.7 x 3.7 x 1.3 cm area of abnormal STIR signal which on some of the projection is suggestive of an abscess and others suggestive of phlegmon. However, the medial portion of this is definitely discrete and confluent and suspicious for small subcutaneous abscess.
[2017-07-22 20:00] VITALS: BP 99/41
[2017-07-22] MEDS: Tamsulosin 0.4mg cap ORAL SCH (21:20)
[2017-07-22] MEDS: Ertapenem 1 GM in NS 110 ML IVPB SCH (21:59)
[2017-07-23 04:00] VITALS: BP 112/55
--- NOTE | 2017-07-23 08:44 | General Progress Note ---
Assessment/Plan Problem List: (1) Weak ICD Codes: R53.1 - Weakness SNOMED: 55957496 (2) Sepsis ICD Codes: A41.9 - Sepsis, unspecified organism SNOMED: 86844482 (3) Anemia ICD Codes: D64.9 - Anemia, unspecified SNOMED: 323896466 (4) Urinary tract infection ICD Codes: N39.0 - Urinary tract infection, site not specified SNOMED: 62440562 Status: stable, progressing, ambulating well Assessment/Plan ot pt diet abx cbc bmp am dc if clear by id Subjective Constitutional: Reports: weakness Allergies: Coded Allergies: No Known Allergies (Unverified , 07/19/17) All Systems: reviewed and negative except above Subjective sleepy calm Objective Last 24 Hour Vital Signs Date Time Temp Pulse Resp B/P (MAP) Pulse Ox O2 Delivery O2 Flow Rate FiO2 07/23/17 04:00 97.2 79 20 112/55 99 97.2 07/22/17 20:00 97.6 92 19 99/41 95 Room Air 97.6 07/22/17 16:00 97.6 81 18 105/49 97 Room Air 97.6 07/22/17 12:00 97.7 75 20 125/77 97 Room Air 97.7 Intake and Output 07/22/17 07/23/17 19:00 07:00 Intake Total 1540 ml Balance 1540 ml Intake Oral 800 ml IV Total 740 ml # Voids 4 # Bowel Movements 1 1 Height (Feet): 5 Height (Inches): 11.00 Weight (Pounds): 115 General Appearance: alert EENT: normal ENT inspection Neck: normal alignment Cardiovascular: normal peripheral pulses, normal rate, regular rhythm Respiratory/Chest: chest wall non-tender, lungs clear, normal breath sounds Abdomen: normal bowel sounds, non tender, soft Extremities: normal inspection Edema: no edema noted Arm (L), no edema noted Arm (R), no edema noted Leg (L), no edema noted Leg (R), no edema noted Pedal (L), no edema noted Pedal (R), no edema noted Generalized Neurologic: responsive, motor weakness Skin: normal pigmentation, warm/dry KRISTINA SCHULTZ Jul 23, 2017 08:44
[2017-07-23 08:50] VITALS: BP 106/53
[2017-07-23] MEDS: Docusate 100mg cap ORAL SCH ×2 (08:55→17:51)
[2017-07-23] MEDS: Multivitamin w/Minerals tab ORAL SCH (08:55)
[2017-07-23] MEDS: D5 1/2NS 1,000 ML IV SCH (11:51)
--- NOTE | 2017-07-23 11:51 | Consultation ---
History of Present Illness General Chief Complaint: Male Urogenital Problems Reason for Consultation: heel wound Present Illness HPI 77M multiple medical comorbidities here for medical care and management. during admission noted to have pressure ulcer on left heel. concerns for possible infection vs osteo so MRI performed. MRI with possible abscess. Surgery called to evaluate. Patient seen, chart reviewed, wounds/radiology reviewed. Allergies: Coded Allergies: No Known Allergies (Unverified , 07/19/17) Medication History Scheduled Docusate Sodium* (Docusate Sodium*), 100 MG ORAL TWICE A DAY, (Reported) Multivitamin With Minerals (Multivitamins With Minerals*), 1 TAB ORAL DAILY, ( Reported) Nitrofurantoin Macrocrystal (Nitrofurantoin), 100 MG PO BID, (Reported) Tamsulosin Hcl (Tamsulosin Hcl*), 0.4 MG ORAL BEDTIME, (Reported) Trimethoprim/Sulfamethoxazole 160/800* (Bactrim Ds Tablet*), 1 TAB ORAL Q12H Scheduled PRN Acetaminophen (Acetaminophen), 650 MG ORAL Q4HR PRN for Mild Pain/Temp > 100.5, (Reported) Hydrocodone Bit/Acetaminophen 5-325* ([place] 5-325 Tablet*), 1 TAB ORAL Q4H PRN for Moderate Pain (Pain Scale 4-6), (Reported) Melatonin (Melatonin), 3 MG PO for Insomnia, (Reported) Ondansetron* (Zofran*), 4 MG ORAL Q6H PRN for Nausea & Vomiting, (Reported) Patient History History Provided By: Patient, Medical Record, PMD Healthcare decision maker Resuscitation status Full Code Advanced Directive on File Past Medical/Surgical History Past Medical/Surgical History: (1) Chronic heel ulcer (2) Urinary tract infection (3) Anemia (4) Weak (5) Sepsis (6) Decubitus ulcer of right heel, unstageable Review of Systems All Other Systems: negative except mentioned in HPI Physical Exam General Appearance: no apparent distress Lines, tubes and drains: peripheral HEENT: PERRL Neck: normal inspection Respiratory/Chest: lungs clear, normal breath sounds Cardiovascular/Chest: normal rate, other - decreased peripheral lower extremity pulses but with good cap refill Abdomen: normal bowel sounds, non tender, soft, no organomegaly, no mass Extremities: other - left heel 2cm pressure ulcer with eschar. no signs of infeciton. no drainage. Skin Exam: normal pigmentation Neurologic: alert, responsive Last 24 Hour Vital Signs Date Time Temp Pulse Resp B/P (MAP) Pulse Ox O2 Delivery O2 Flow Rate FiO2 07/23/17 08:50 98.0 83 20 106/53 93 98.0 07/23/17 04:00 97.2 79 20 112/55 99 97.2 07/22/17 20:00 97.6 92 19 99/41 95 Room Air 97.6 07/22/17 16:00 97.6 81 18 105/49 97 Room Air 97.6 07/22/17 12:00 97.7 75 20 125/77 97 Room Air 97.7 Intake and Output 07/22/17 07/23/17 19:00 07:00 Intake Total 1540 ml Balance 1540 ml Intake Oral 800 ml IV Total 740 ml # Voids 4 # Bowel Movements 1 1 Height (Feet): 5 Height (Inches): 11.00 Weight (Pounds): 115 Medications Current Medications Medications (Trade) Dose Ordered Sig/Nicole Route PRN Reason Start Time Stop Time Status Last Admin Dose Admin Acetaminophen (Tylenol) 650 mg Q4HR PRN ORAL Mild Pain/Temp > 100.5 07/20/17 01:00 08/19/17 00:59 Acetaminophen/ Hydrocodone Bitart ([place] 5/325) 1 tab Q4H PRN ORAL Moderate Pain (Pain Scale 4-6) 07/20/17 01:00 07/27/17 00:59 Dextrose/Sodium Chloride 1,000 ml @ 60 mls/hr [id number] IV 07/20/17 00:00 08/19/17 00:00 07/22/17 17:45 Docusate Sodium (Colace) 100 mg TWICE A DAY ORAL 07/20/17 09:00 08/19/17 08:59 07/23/17 08:55 Ertapenem 1 gm/ Sodium Chloride 110 ml @ 220 mls/hr Q24H IVPB 07/21/17 22:30 07/26/17 22:29 07/22/17 21:59 Multivitamins Therapeutic (Therapeutic Multivitamin) 1 ea DAILY ORAL 07/20/17 09:00 08/19/17 08:59 07/23/17 08:55 Ondansetron HCl (Zofran) 4 mg Q6H PRN ORAL Nausea & Vomiting 07/20/17 01:00 08/19/17 00:59 Tamsulosin HCl (Flomax) 0.4 mg BEDTIME ORAL 07/20/17 21:00 08/19/17 20:59 07/22/17 21:20 Assessment/Plan Problem List: (1) Decubitus ulcer of right heel, unstageable Assessment & Plan: 2cm stable decubitus ulcer on right heel with eschar. no signs of infection. no drainage. MRI reviewed. Impression: No bone marrow edema to suggest osteomyelitis demonstrated. Medial heel pad superficial defect consistent with a clinical history of ulcer. Deep to this, there is a 3.7 x 3.7 x 1.3 cm area of abnormal STIR signal which on some of the projection is suggestive of an abscess and others suggestive of phlegmon. However, the medial portion of this is definitely discrete and confluent and suspicious for small subcutaneous abscess. -wound evaluated and stable/chronic. no active infection. no abscess noted on exam. no areas of fluctuance, no drainage, no erythema. eschar stable and protective. -no surgical intervention necessary at this time -keep off wound -wound protective barrier -okay to d/c -follow up with me in 2-4 weeks as an outpatient for wound check. -return if worsening condition, infection, drainage from wound. ICD Codes: L89.610 - Pressure ulcer of right heel, unstageable SNOMED: 171419408 Status: stable Bentley Enrique Jul 23, 2017 11:51
[2017-07-23 12:00] VITALS: BP 113/46
[2017-07-23] MEDS ORDERED: INVANZ1 GM IVPB (14:27)
[2017-07-23] MEDS ORDERED: D5 1/2NS 1000ml IV ONE ×2 (14:59→18:51)
[2017-07-23 16:00] VITALS: BP 108/99
--- NOTE | 2017-07-24 10:32 | Discharge Summary ---
Discharge Summary Discharge Summary Discharge Summary DATE OF ADMISSION: 07/19/2017 DATE OF DISCHARGE: 07/23/2017 REASON FOR ADMISSION: 27 years old male with history of diabetes was sent from the [facility] facility for multidrug-resistant organism urinary tract infection sensitive to Unasyn. Per report no documented fevers. No urinary retention or dysuria. Workup in emergency room revealed stable vital signs, no leukocytosis. Patient was admitted for UTI for further management CONSULTANTS: ID specialist Dr. James surgery Dr. Enrique [facility] COURSE: Patient admitted to medical surgical floor. Infectious disease consult was requested. Patient started on antibiotics for multidrug-resistant Proteus mirabilis infection. Urine culture revealed mixed urogenital contaminants. ID specialist recommended to continue ertapenem for additional 2 days upon transfer back back to [facility]. Patient was working with physical and occupational therapists. Fall precautions were maintained. Patient had multiple decubitus ulcers present on admission, including right heel un-stageable pressure ulcer. Wound culture was positive for MRSA. ID was concerned of possible osteomyelitis of the right heel. MRI of the right heel was done subsequently and revealed no evidence of osteomyelitis. Surgeon was consulted for right heel pressure ulcer management, present on admission. According to surgeon, pressure ulcer appeared stable/chronic. No evidence of active infection or abscess noted on exam. No areas of fluctuance, no drainage, no erythema. Eschar was stable and protective. No surgical intervention was required at this time. Surgeon recommended to keep pressure off wound. Follow up in 2- 4 weeks with surgeon as outpatient for wound check. Surgeon cleared for discharge, but recommended to return if condition worsens, infection or drainage appear. Wound care for multiple pressure ulcers present on admission , was provided as per wound care nurse recommendation. Supportive care provided. Bowel regimen instituted. Pain management was addressed. Patient was stable for discharge back to [facility] FINAL DIAGNOSES: Probable sepsis Probably UTI with MDR Proteus mirabilis (urine culture from SNF) Diabetes mellitus Left trochanter stage III pressure ulcer, present on admission Left ischial pressure ulcer stage III, present on admission Right heel un-stageable pressure ulcer, present on admission Left heel deep tissue injury pressure ulcer, present on admission DISCHARGE MEDICATIONS: See Medication Reconciliation list. DISCHARGE INSTRUCTIONS: Patient was discharged to [facility] facility follow-up with medical doctor at the facility. I have been assigned to dictate discharge summary for this account. I was not involved in the patient's management. Fermin ([facility])Aster NP Jul 24, 2017 10:32
== END 2017-07-23 18:52 | DRG 871 ==
LOC: EDBD 17:53 → EMR 18:22 → 4E 20:53 → EDBEDREQ 21:50 → 4E 07-22 11:59
DX: A41.9 Sepsis, unspecified organism (principal); L89.223 Pressure ulcer of left hip, stage 3; L89.323 Pressure ulcer of left buttock, stage 3; N39.0 Urinary tract infection, site not specified; Z16.24 Resistance to multiple antibiotics; R53.1 Weakness; R53.83 Other fatigue; D64.9 Anemia, unspecified; E11.9 Type 2 diabetes mellitus without complications; B96.4 Proteus (mirabilis) (morganii) as the cause of diseases classified elsewhere; L89.620 Pressure ulcer of left heel, unstageable; L89.610 Pressure ulcer of right heel, unstageable; B95.62 Methicillin resistant Staphylococcus aureus infection as the cause of diseases classified elsewhere
CPT/HCPCS: 36415; 80048; 81001; 82962; 85025; 87070; 87081; 87086; 87181; 87205; 99285

== ENCOUNTER 2017-08-04 19:58 | Emergency (ER) | payer MEDICARE, MEDICAID ==
[~2017-08-04] VITALS: Ht 177.8 cm; Wt 65.8 kg
[~2017-08-04 19:58] MED LIST: BACTRIM DS TAB1 EAC1 ORAL; DOCUSATE SODIU100 MG ORAL; INVANZ1 GM IVPB; MELATONIN1 M2 PO; MULTIVITAMINS1 EAC8 ORAL; NITROFURANTOIN25 MG PO; NORCO 5-325 TA1 EAC1 ORAL; TAMSULOSIN HCL0.4 MG ORAL; TYLENOL650 MG/20. ORAL; ZOFRAN4 M3 ORAL
[2017-08-04 20:00] VITALS: BP 120/57
[2017-08-04] MEDS ORDERED: Ketorolac 60mg Inj IM ONE (21:00)
[2017-08-04] MEDS ORDERED: LORazepam 1mg tab ORAL ONE (21:00)
[2017-08-04 21:50] VITALS: BP 106/68
--- NOTE | 2017-08-04 22:19 | Emergency Room Report ---
History of Present Illness General Chief Complaint: Upper Extremity Injury Source: Patient, Medical Record, EMS, PMD Present Illness HPI This patient presents from a intermediate facility. Apparently had a fall several days ago. He underwent x-rays that were unremarkable at that time. He presents today for left shoulder pain. He also has some left hand erythema. He has no other complaints. Allergies: Coded Allergies: No Known Allergies (Unverified , 07/19/17) Patient History Past Medical History: see triage record, DM, other - weakness Social History: Denies: smoking, alcohol use, drug use Reviewed Nursing Documentation: PMH: Agreed; PSxH: Agreed Nursing Documentation-PMH Past Medical History: No History, Except For Hx Diabetes: Yes Hx Cancer: No Hx Gastrointestinal Problems: No Review of Systems All Other Systems: negative except mentioned in HPI Physical Exam Vital Signs Date Time Temp Pulse Resp B/P (MAP) Pulse Ox O2 Delivery O2 Flow Rate FiO2 08/04/17 19:51 98.0 87 20 123/64 95 Room Air 98.1 Sp02 EP Interpretation: reviewed, normal General Appearance: no apparent distress, alert, GCS 15, non-toxic Head: normocephalic, atraumatic Eyes: bilateral eye normal inspection, bilateral eye PERRL ENT: hearing grossly normal, normal pharynx, no angioedema, normal voice Neck: full range of motion, supple/symm/no masses Respiratory: chest non-tender, lungs clear, normal breath sounds, no respiratory distress, no retraction, no accessory muscle use, speaking full sentences Cardiovascular #1: regular rate, rhythm, no edema Gastrointestinal: normal bowel sounds, non tender, soft, non-distended, no guarding, no rebound Rectal: deferred Musculoskeletal: other - Anterior depression R. shoulder. R. arm held flexed and internally rotated. Unable to ROM. Neurologic: alert, oriented x3, responsive, motor strength/tone normal, sensory intact, speech normal Psychiatric: judgement/insight normal, memory normal, mood/affect normal, no suicidal/homicidal ideation Skin: normal color, no rash, warm/dry, well hydrated Medical Decision Making Diagnostic Impression: Primary Impression: Dislocation of shoulder, right, closed Additional Impression: Cellulitis ER Course This patient has a right shoulder dislocation. Also, unfortunately, given the length of time that the shoulders been dislocated, the shoulder is now frozen. I am unable to range of motion the shoulder. X-ray of the right shoulder shows a large amount of calcifications in the surrounding soft tissue. The patient is self responsible and competent. He adamantly refused IV placement or labs. The patient adamantly declined admission to the hospital. He did greet to IM Toradol and oral Ativan to see if I could reduce his shoulder with only these medications. However, the shoulder is frozen and I was unable to even get minimal motion out of the left shoulder. I recommended to this patient that he undergo conscious sedation. He adamantly declined. I also offered and recommended that he be admitted to the hospital and he could undergo general anesthesia and evaluation by an orthopedic surgeon. However he continued to decline. He demanded to go back to the intermediate facility. He states that he will reconsider this tomorrow. He wants to discuss his options with his friend. I was unable to contact the patient's primary care physician despite multiple attempts. The patient has a dislocated shoulder that has been out for some time. Likely this shoulder will need reduction under general anesthesia. The patient was discharged to the intermediate facility. Possibly, tomorrow after he can speak with his friend and his primary care physician can further discuss with him, this patient to return to get a proper treatment. Regardless, it is on emergency medical condition that needs immediate intervention. He also has some erythema over the left hand. This could be an early cellulitis. I will go ahead and start the patient on a course of antibiotics. Unfortunately I was unable to further intervene on this patient's behalf. The patient was returned to the intermediate facility. Other X-Ray Diagnostic Results Other X-Ray Diagnostic Results : X-Ray ordered: R. shoulder # of Views/Limited Vs Complete: Complete Indication: Pain EP Interpretation: Yes Interpretation: other - R. Shoulder anteriorly dislocated. Last Vital Signs Date Time Temp Pulse Resp B/P (MAP) Pulse Ox O2 Delivery O2 Flow Rate FiO2 08/04/17 20:00 98.1 87 26 120/57 96 Room Air 98.1 Disposition: HOME, SELF-CARE Condition: Stable Referrals: KRISTINA SCHULTZ (PCP) ELLIS PAGAN D.O. Aug 04, 2017 22:19
[2017-08-04 23:40] VITALS: BP 117/78
--- NOTE | 2017-08-05 09:37 | Diagnostic Imaging Report ---
Indication: Reason For Exam: PAIN Technique: 3 views of the left shoulder Comparison: none Findings: There is an anterior dislocation of the left humeral head. There is extensive surrounding heterotopic ossification and irregularity of the humeral head as well as of the glenoid. Considerable degenerative remodeling of the humeral head also noted. The bones are osteoporotic. No definite acute fractures. Impression: Anterior dislocation of the left shoulder. Given the extent of associated degenerative change and surrounding heterotopic ossification, suspect this is chronic. No acute bony trauma Possible chronic change This agrees with the findings reported by the emergency room physician in the electronic medical record
== END 2017-08-04 23:40 | disposition home or self-care (01) ==
LOC: EDBD 19:58 → EMR 20:16
DX: S43.015A Anterior dislocation of left humerus, initial encounter (principal); W19.XXXA Unspecified fall, initial encounter; Y92.129 Unspecified place in nursing home as the place of occurrence of the external cause; L03.114 Cellulitis of left upper limb; E11.9 Type 2 diabetes mellitus without complications
CPT/HCPCS: 96372; 99283

== ENCOUNTER 2017-08-05 10:28 | Inpatient (IN) | payer MEDICARE, MEDICAID ==
[~2017-08-05] VITALS: Ht 165.1 cm; Wt 54.4 kg
[2017-08-05 10:45] VITALS: BP 108/50
[2017-08-05 11:13] LABS: BASOPHILS % (AUTO) 1.3 % (0.0-2.0); EOSINOPHILS % (AUTO) 4.2 % (0.0-3.0); HEMATOCRIT 33.9 % (42.0-52.0); HEMOGLOBIN 11.3 G/DL (14.2-18.0); LYMPHOCYTES % (AUTO) 14.2 % (20.0-45.0); MEAN CORPUSCULAR VOLUME 84 FL (80-99); MONOCYTES % (AUTO) 11.4 % (1.0-10.0); NEUTROPHILS % (AUTO) 68.9 % (45.0-75.0); PLATELET COUNT 407 K/UL (150-450); RED BLOOD COUNT 4.03 M/UL (4.70-6.10); RED CELL DISTRIBUTION WIDTH 14.3 % (11.6-14.8); WHITE BLOOD COUNT 7.8 K/UL (4.8-10.8)
[2017-08-05 11:25] LABS: ANION GAP 7 mmol/L (5-15); BLOOD UREA NITROGEN 52 mg/dL (7-18); CALCIUM 9.4 MG/DL (8.5-10.1); CARBON DIOXIDE 29 MMOL/L (21-32); CHLORIDE 105 MMOL/L (98-107); CREATININE 1.4 MG/DL (0.55-1.30); POTASSIUM 4.4 MMOL/L (3.5-5.1); SODIUM 141 MMOL/L (136-145)
[2017-08-05 11:30] LABS: ALANINE AMINOTRANSFERASE 43 U/L (12-78); ALBUMIN 2.5 G/DL (3.4-5.0); ALBUMIN/GLOBULIN RATIO 0.5 (1.0-2.7); ALKALINE PHOSPHATASE 68 U/L (46-116); ASPARTATE AMINO TRANSFERASE 24 U/L (15-37); BILIRUBIN,TOTAL 0.3 MG/DL (0.2-1.0)
[2017-08-05 12:30] VITALS: BP 117/62
--- NOTE | 2017-08-05 13:20 | Emergency Room Report ---
History of Present Illness General Chief Complaint: Shoulder Injury Source: Patient, Medical Record Present Illness HPI 77-year-old male presents ED for evaluation. [facility] with [facility]ity to left shoulder. Sustained an injury earlier this week. Was seen here yesterday and noted to have shoulder dislocation. Patient refused all forms of reduction options and wanted to be discharged back to facility. Patient is here back because he wants to have it fixed. Denies any pain at this time. Denies any other injuries. No other aggravating relieving factors. Denies any other associated symptoms Allergies: Coded Allergies: No Known Allergies (Unverified , 07/19/17) Patient History Past Medical History: DM Past Surgical History: none Pertinent Family History: none Social History: Denies: smoking, alcohol use, drug use Immunizations: UTD Reviewed Nursing Documentation: PMH: Agreed; PSxH: Agreed Nursing Documentation-PMH Past Medical History: No History, Except For Hx Diabetes: Yes Hx Cancer: No Hx Gastrointestinal Problems: No Review of Systems All Other Systems: negative except mentioned in HPI Physical Exam Vital Signs Date Time Temp Pulse Resp B/P (MAP) Pulse Ox O2 Delivery O2 Flow Rate FiO2 08/05/17 10:29 97.8 76 18 108/50 96 Room Air 97.9 Sp02 EP Interpretation: reviewed, normal General Appearance: no apparent distress, alert, GCS 15, non-toxic Head: normocephalic, atraumatic Eyes: bilateral eye normal inspection, bilateral eye PERRL ENT: hearing grossly normal, normal pharynx, no angioedema, normal voice Neck: full range of motion, supple/symm/no masses Respiratory: chest non-tender, lungs clear, normal breath sounds, speaking full sentences Cardiovascular #1: regular rate, rhythm, no edema Cardiovascular #2: 2+ carotid (R), 2+ carotid (L), 2+ radial (R), 2+ radial (L) , 2+ dorsalis pedis (R), 2+ dorsalis pedis (L) Gastrointestinal: normal bowel sounds, non tender, soft, non-distended, no guarding, no rebound Rectal: deferred Genitourinary: normal inspection, no CVA tenderness Musculoskeletal: back normal, gait/station normal, decreased range of motion - L shoulder Neurologic: alert, oriented x3, responsive, motor strength/tone normal, sensory intact, speech normal Psychiatric: judgement/insight normal, memory normal, mood/affect normal, no suicidal/homicidal ideation Reflexes: 3+ bicep (R), 3+ bicep (L), 3+ tricep (R), 3+ tricep (L), 3+ knee (R) , 3+ knee (L) Skin: normal color, no rash, warm/dry, well hydrated Lymphatic: no adenopathy Medical Decision Making Diagnostic Impression: Primary Impression: Shoulder dislocation Qualified Codes: S43.005A - Unspecified dislocation of left shoulder joint, initial encounter Additional Impression: Renal insufficiency ER Course Hospital Course 77-year-old male presents to ED with deformity to left shoulder Differential diagnoses include: fracture, dislocation, contusion Clinical course Patient placed on stretcher. After initial history and physical I ordered labs x-rays of L shoulder Labs reviewed- no leukocytosis noted, BUN/Cr elevated, hemoglobin/hematocrit okay Xray shows dislocation on Left shouldr Patient is not in pain. No neurological deficit. Deformity is now chronic. Attempt to reduce in ER will be very difficult given patient is declining procedural sedation. Patient did agree to option of reduction in OR Case discussed with Dr. Lucius Ghosh who agreed to consult on this case. Case discussed with Dr. Schultz who agreed to accept the patient to his service for further care and support i. I feel this is a highly complex case requiring extensive working including EKG/Rhythm strip, Xray/CT/US, Blood/urine lab work, repeat exams while in ED, and administration of strong opiates/narcotics for pain control, admission to hospital or close patient follow up. Diagnosis - shoulder dislocation, renal insufficiency Admitted to floor in serious condition Labs Test 08/05/17 10:56 White Blood Count 7.8 K/UL (4.8-10.8) Red Blood Count 4.03 M/UL (4.70-6.10) Hemoglobin 11.3 G/DL (14.2-18.0) Hematocrit 33.9 % (42.0-52.0) Mean Corpuscular Volume 84 FL (80-99) Mean Corpuscular Hemoglobin 28.0 PG (27.0-31.0) Mean Corpuscular Hemoglobin Concent 33.3 G/DL (32.0-36.0) Red Cell Distribution Width 14.3 % (11.6-14.8) Platelet Count 407 K/UL (150-450) Mean Platelet Volume 6.1 FL (6.5-10.1) Neutrophils (%) (Auto) 68.9 % (45.0-75.0) Lymphocytes (%) (Auto) 14.2 % (20.0-45.0) Monocytes (%) (Auto) 11.4 % (1.0-10.0) Eosinophils (%) (Auto) 4.2 % (0.0-3.0) Basophils (%) (Auto) 1.3 % (0.0-2.0) Prothrombin Time 10.6 SEC (9.30-11.50) Prothromb Time International Ratio 1.0 (0.9-1.1) Activated Partial Thromboplast Time 32 SEC (23-33) Sodium Level 141 MMOL/L (136-145) Potassium Level 4.4 MMOL/L (3.5-5.1) Chloride Level 105 MMOL/L (98-107) Carbon Dioxide Level 29 MMOL/L (21-32) Anion Gap 7 mmol/L (5-15) Blood Urea Nitrogen 52 mg/dL (7-18) Creatinine 1.4 MG/DL (0.55-1.30) Estimat Glomerular Filtration Rate mL/min (>60) Glucose Level 136 MG/DL (74-106) Calcium Level 9.4 MG/DL (8.5-10.1) Total Bilirubin 0.3 MG/DL (0.2-1.0) Aspartate Amino Transf (AST/SGOT) 24 U/L (15-37) Alanine Aminotransferase (ALT/SGPT) 43 U/L (12-78) Alkaline Phosphatase 68 U/L (46-116) Total Protein 7.9 G/DL (6.4-8.2) Albumin 2.5 G/DL (3.4-5.0) Globulin 5.4 g/dL Albumin/Globulin Ratio 0.5 (1.0-2.7) Other X-Ray Diagnostic Results Other X-Ray Diagnostic Results : X-Ray ordered: L shoulder # of Views/Limited Vs Complete: 3 View Indication: Pain EP Interpretation: Yes Interpretation: no soft tissue swelling, no fractures, other - shoulder dislocation Impression: Other - shoulder dislocation Electronically Signed by: Electronically signed by Abdirashid Kwan MD Last Vital Signs Date Time Temp Pulse Resp B/P (MAP) Pulse Ox O2 Delivery O2 Flow Rate FiO2 08/05/17 10:45 97.9 18 108/50 96 Room Air 97.9 08/05/17 10:29 76 Status: improved Disposition: ADMITTED INPATIENT Condition: Serious Referrals: KRISTINA SCHULTZ (PCP) Abdirashid Kwan MD Aug 05, 2017 13:20
--- NOTE | 2017-08-05 17:12 | Diagnostic Imaging Report ---
Indication: Pain Technique: 3 views of the left shoulder Comparison: none Findings: Again demonstrated is anterior dislocation of the left shoulder. Extensive surrounding heterotopic ossification is again noted, somewhat better visualized on the previous exam. No definite acute fractures. Impression: Positive for anterior left shoulder dislocation, unchanged over one they, per technologist reportedly chronic. Appearance also suggestive of chronicity, as previously reported
--- NOTE | 2017-08-05 17:15 | History and Physical Report ---
DATE OF ADMISSION: 08/05/2017 TIME: 1 p.m. CAREERS ADVISER: Lucius Ghosh M.D. CHIEF COMPLAINT: Left shoulder dislocation. BRIEF HISTORY: This is a 77-year-old male from [facility], who apparently fell about three days ago. He has had some left shoulder pain. He was found to have left shoulder dislocation, he came to the ER, refused treatment, and then currently returned for further treatment. Currently, calm in bed. No complaint. No chest pain. No shortness of breath. No nausea, vomiting, or diarrhea. PAST MEDICAL HISTORY: Includes anemia, renal insufficiency, and chronic heel ulcers. PAST SURGICAL HISTORY: None. MEDICATIONS: We will obtain list shortly. ALLERGIES: Denies. SOCIAL HISTORY: No smoking. No alcohol. No intravenous drug abuse. FAMILY HISTORY: Noncontributory. PHYSICAL EXAMINATION: GENERAL: Calm in bed, oriented x3, and in no acute distress. VITAL SIGNS: Temperature 97, pulse 76, respirations 18, and blood pressure 108/50. CARDIOVASCULAR: No murmurs. LUNGS: Distant and clear. ABDOMEN: Bowel sounds positive. Nontender. Nondistended. EXTREMITIES: Shows no cyanosis and no edema. Left shoulder is slightly swollen. He has guarding of his shoulder and limited range of motion about 50%. LABORATORY DATA: Labs, at this time, show hemoglobin 11.3, otherwise CBC is normal. BMP show BUN and creatinine are 52 and 1.4. Glucose 136. INR is 1.0. ASSESSMENT: Left shoulder dislocation status post fall, history of heel ulcer, decubitus ulcers, venous insufficiency, and anemia. PLAN: 1. Continue previous medications. 2. OT, PT, and dietary evaluation. 3. CBC and BMP in the morning. 4. Resume home medications. 5. Pain control. 6. Dr. Day and Dr. Ghosh to consult. 7. We will continue to follow this patient medically. Samir Cramer D.O. DR: CINDA JOB#: [id number] CC:
[2017-08-05] MEDS ORDERED: Morphine Sulfate 4mg/ml Inj IVP PRN (17:37)
[2017-08-05] MEDS: D5 1/2NS 1,000 ML IV SCH (17:55)
--- NOTE | 2017-08-05 19:30 | Consultation ---
DATE OF CONSULTATION: 08/05/2017 HISTORY OF PRESENT ILLNESS: The patient is a 77-year-old gentleman, who presents with 13-day history of left shoulder pain. The patient presented to ER yesterday and was diagnosed with a shoulder dislocation. He subsequently signed out AMA I believe and returned today to the ER. He is refusing any attempts to reduce the shoulder by the ER staff. Therefore, orthopedic consultation was obtained for further care and recommendation. PAST MEDICAL HISTORY: Reviewed from the intake chart. PAST SURGICAL HISTORY: Reviewed from the intake chart. MEDICATION: Reviewed from the intake chart. PHYSICAL EXAMINATION: Examination shows there is obvious prominence along the anterior aspect of the left shoulder. There is no ecchymosis, no swelling, and no gross deformity. The patient is actually sleeping and able to flex and extend his elbow and wrist. Radial and ulnar pulses +2. 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 DISCUSSION: At this point, I do not think it is acute. There is no swelling or ecchymosis to suggest recent trauma. I think it is chronic dislocation and therefore it would be very hard to perform this surgery. At this point, he is not really a good candidate for surgical intervention given that he has had this dislocation at least by his report, which I am not sure exactly, but at least 2 years. At this point, I have communicated my findings to the ER staff and though we . Lucius Ghosh M.D. DR: SEBASTIÁN JOB#: [id number] CC:
[2017-08-05 21:00] VITALS: BP 108/51
[2017-08-05] MEDS: Heparin 5000 units/ml inj SUBQ SCH (21:27)
--- NOTE | 2017-08-05 22:45 | Consultation ---
DATE OF CONSULTATION: 08/05/2017 NEPHROLOGY CONSULTATION CONSULTING PHYSICIAN: Mesha Day M.D. REFERRING PHYSICIAN: Samir Cramer D.O. REASON FOR CONSULTATION: Acute versus chronic renal failure. HISTORY OF PRESENT ILLNESS: The patient is a 77-year-old male with past medical history significant for chronic renal failure hypertension, baseline creatinine is unknown who had history of fall and left shoulder pain for the last three weeks. The patient apparently presented to emergency room yesterday complaining of left shoulder pain, found to have dislocation of the left shoulder. The patient refused any further treatment so went home and came back again today, was admitted for shoulder reduction, found to have creatinine of 1.4. I was called for management of renal disease and electrolyte imbalance. PAST MEDICAL HISTORY: Including 1. History of hypertension. 2. History of anemia. 3. History of heel ulcer. 4. Positive for history of diabetes. PAST SURGICAL HISTORY: None. MEDICATIONS: 1. MVI one tablet p.o. daily. 2. Ascorbic acid 500 mg p.o. daily. 3. Zinc sulfate 220 mg daily. 4. Morphine p.r.n. pain. FAMILY HISTORY: Negative for any history of heart disease or chronic kidney disease. SOCIAL HISTORY: Denies any history of tobacco, alcohol, or drug use. REVIEW OF SYSTEMS: GENERAL: Denies any weight loss, weight gain, fever, chills, night sweats. HEAD AND NECK: Denies any dysphagia, odynophagia, blurry vision, headache, or neck stiffness. PULMONARY: No shortness of breath. No cough or sputum. CARDIOVASCULAR: Denies any chest pain or palpitations. GASTROINTESTINAL: Denies any nausea, vomiting, diarrhea, hematemesis, hematochezia. GENITOURINARY: Denies any dysuria, frequency, or hematuria. MUSCULOSKELETAL: Complaining of left shoulder pain. PHYSICAL EXAMINATION: VITAL SIGNS: The patient has temperature of 98, pulse rate of 78, and respiratory rate of 18, and blood pressure of 108/50. HEAD AND NECK: No JVP. No LAD. No thyromegaly. Extraocular movements intact. Pupils are reactive to light and accommodation. LUNGS: Clear to auscultation. CARDIAC: Regular rate and rhythm. S1 and S2. No murmur. No rub. ABDOMEN: Soft, nontender, and nondistended. EXTREMITIES: No edema. No clubbing. No cyanosis. NEUROLOGIC: Cranial nerves II through XII within normal limit. Upper and lower grossly intact. LABORATORY AND DIAGNOSTIC DATA: WBC count of 7.8, hemoglobin of 11.3, hematocrit 33.9, platelet count of 407. Chemistry revealed sodium 141, potassium 4.4, chloride 105, bicarb 29, BUN of 52, creatinine 1.4, and calcium of 9.4. AST of 24 and ALT of 43. There is no UA. ASSESSMENT: 1. Acute renal failure, the etiology of acute renal failure is prerenal azotemia versus chronic kidney disease due to diabetic nephropathy. 2. Left shoulder dislocation. 3. Diabetes. PLAN: Plan for the patient to obtain UA. Check the random urine protein creatinine ratio to calculate the proteinuria. Check the urine sodium and creatinine to calculate fractional excretion of sodium. Monitoring Inputs and outputs. IV hydration. At the end, I would like to thank Dr. Samir Cramer, for allowing me to participate in the care of this patient. Mesha Day M.D. DR: Gregorio JOB#: [id number] CC:
[2017-08-06] VITALS: BP 146/83
[2017-08-06 04:00] VITALS: BP 135/61
[2017-08-06 07:31] LABS: ANION GAP 10 mmol/L (5-15); BLOOD UREA NITROGEN 42 mg/dL (7-18); CALCIUM 9.3 MG/DL (8.5-10.1); CARBON DIOXIDE 24 MMOL/L (21-32); CHLORIDE 106 MMOL/L (98-107); POTASSIUM 4.4 MMOL/L (3.5-5.1); SODIUM 140 MMOL/L (136-145)
[2017-08-06 07:44] LABS: BASOPHILS % (AUTO) 0.9 % (0.0-2.0); EOSINOPHILS % (AUTO) 5.5 % (0.0-3.0); HEMATOCRIT 34.1 % (42.0-52.0); HEMOGLOBIN 11.7 G/DL (14.2-18.0); LYMPHOCYTES % (AUTO) 17.3 % (20.0-45.0); MEAN CORPUSCULAR VOLUME 84 FL (80-99); MONOCYTES % (AUTO) 8.6 % (1.0-10.0); NEUTROPHILS % (AUTO) 67.6 % (45.0-75.0); PLATELET COUNT 431 K/UL (150-450); RED BLOOD COUNT 4.06 M/UL (4.70-6.10); RED CELL DISTRIBUTION WIDTH 14.2 % (11.6-14.8); WHITE BLOOD COUNT 6.9 K/UL (4.8-10.8)
[2017-08-06 08:00] VITALS: BP 127/50
[2017-08-06] MEDS: Ascorbic Acid 500mg tab ORAL SCH ×2 (08:26→08:39)
[2017-08-06] MEDS: Zinc Sulfate 220mg cap ORAL SCH ×2 (08:26→08:39)
[2017-08-06] MEDS: Heparin 5000 units/ml inj SUBQ SCH ×2 (08:28→08:40)
--- NOTE | 2017-08-06 09:15 | General Progress Note ---
Assessment/Plan Problem List: (1) Anemia ICD Codes: D64.9 - Anemia, unspecified SNOMED: 978129775 (2) Weak ICD Codes: R53.1 - Weakness SNOMED: 70509347 (3) Chronic heel ulcer ICD Codes: L97.409 - Non-pressure chronic ulcer of unspecified heel and midfoot with unspecified severity SNOMED: 33313534529098103 (4) Shoulder dislocation ICD Codes: S43.006A - Unspecified dislocation of unspecified shoulder joint, initial encounter SNOMED: 643315284, 630151213 Qualifiers: Qualified Codes: S43.005A - Unspecified dislocation of left shoulder joint, initial encounter Status: stable, progressing, tolerating diet Assessment/Plan ot pt pain control, dc if clear by ortho Subjective Constitutional: Reports: weakness Allergies: Coded Allergies: No Known Allergies (Unverified , 07/19/17) All Systems: reviewed and negative except above Subjective calm in bed, wants to leave Objective Last 24 Hour Vital Signs Date Time Temp Pulse Resp B/P (MAP) Pulse Ox O2 Delivery O2 Flow Rate FiO2 08/06/17 08:00 98.0 83 18 127/50 90 98.0 08/06/17 04:00 98.2 93 20 135/61 95 98.2 08/06/17 00:00 98.3 100 20 146/83 96 98.3 08/05/17 21:00 98.3 88 20 108/51 94 98.3 08/05/17 18:57 97.9 18 117/62 96 Room Air 97.9 08/05/17 12:30 97.9 18 117/62 96 Room Air 97.9 08/05/17 10:45 97.9 18 108/50 96 Room Air 97.9 08/05/17 10:29 97.8 76 18 108/50 96 Room Air 97.9 Intake and Output 08/05/17 08/06/17 19:00 07:00 Intake Total 540 ml 660 ml Balance 540 ml 660 ml Intake Oral 480 ml IV Total 60 ml 660 ml # Voids 2 4 Laboratory Tests 08/05/17 10:56: White Blood Count 7.8, Red Blood Count 4.03L, Hemoglobin 11.3L, Hematocrit 33.9L , Mean Corpuscular Volume 84, Mean Corpuscular Hemoglobin 28.0, Mean Corpuscular Hemoglobin Concent 33.3, Red Cell Distribution Width 14.3, Platelet Count 407, Mean Platelet Volume 6.1L, Neutrophils (%) (Auto) 68.9, Lymphocytes ( %) (Auto) 14.2L, Monocytes (%) (Auto) 11.4H, Eosinophils (%) (Auto) 4.2H, Basophils (%) (Auto) 1.3, Prothrombin Time 10.6, Prothromb Time International Ratio 1.0, Activated Partial Thromboplast Time 32, Sodium Level 141, Potassium Level 4.4, Chloride Level 105, Carbon Dioxide Level 29, Anion Gap 7, Blood Urea Nitrogen 52H, Creatinine 1.4H, Estimat Glomerular Filtration Rate , Glucose Level 136H, Calcium Level 9.4, Total Bilirubin 0.3, Aspartate Amino Transf (AST/ SGOT) 24, Alanine Aminotransferase (ALT/SGPT) 43, Alkaline Phosphatase 68, Total Protein 7.9, Albumin 2.5L, Globulin 5.4, Albumin/Globulin Ratio 0.5L 08/06/17 06:10: White Blood Count 6.9, Red Blood Count 4.06L, Hemoglobin 11.7L, Hematocrit 34.1L , Mean Corpuscular Volume 84, Mean Corpuscular Hemoglobin 28.9, Mean Corpuscular Hemoglobin Concent 34.5, Red Cell Distribution Width 14.2, Platelet Count 431, Mean Platelet Volume 6.0L, Neutrophils (%) (Auto) 67.6, Lymphocytes ( %) (Auto) 17.3L, Monocytes (%) (Auto) 8.6, Eosinophils (%) (Auto) 5.5H, Basophils (%) (Auto) 0.9, Sodium Level 140, Potassium Level 4.4, Chloride Level 106, Carbon Dioxide Level 24, Anion Gap 10, Blood Urea Nitrogen 42H, Creatinine 1.0, Estimat Glomerular Filtration Rate , Glucose Level 115H, Calcium Level 9.3 Height (Feet): 5 Height (Inches): 5.00 Weight (Pounds): 120 General Appearance: alert EENT: normal ENT inspection Neck: normal alignment Cardiovascular: normal peripheral pulses, normal rate, regular rhythm Respiratory/Chest: chest wall non-tender, lungs clear, normal breath sounds Abdomen: normal bowel sounds, non tender, soft Extremities: normal inspection Edema: no edema noted Arm (L), no edema noted Arm (R), no edema noted Leg (L), no edema noted Leg (R), no edema noted Pedal (L), no edema noted Pedal (R), no edema noted Generalized Neurologic: responsive, motor weakness Skin: normal pigmentation, warm/dry Objective l shoulder sl swollen, non tender KRISTINA SCHULTZ Aug 06, 2017 09:15
[2017-08-06] MEDS ORDERED: VITAMIN C500 M1 ORAL (09:51)
[2017-08-06] MEDS ORDERED: ZINC SULFATE220 M1 ORAL (09:51)
[2017-08-06] MEDS: D5 1/2NS 1,000 ML IV SCH (10:42)
[2017-08-06 12:00] VITALS: BP 125/53
[2017-08-06 16:00] VITALS: BP 122/56
[2017-08-06] MEDS ORDERED: D5 1/2NS 1000ml IV ONE (18:35)
--- NOTE | 2017-08-08 08:55 | Discharge Summary ---
Discharge Summary Discharge Summary Discharge Summary DATE OF ADMISSION: 08/05/2017 DATE OF DISCHARGE: When he 8 2017 REASON FOR ADMISSION: 77 years old male with history of diabetes, hypertension, anemia, presented to emergency department with deformity to left shoulder. Apparently the patient sustained injury earlier when he fell. Patient seen earlier in emergency department but refused all interventions and wanted to be sent back to shelter facility. He came that time agreeable to have interventions as necessary. He denied any pain, denied any other injury. Upon evaluation in emergency department patient was found to be in acute renal failure with BUN 52 , creatinine 1.4, albumin 2.5, x-ray of the left shoulder revealed left shoulder dislocation. Patient was anemic with hemoglobin 11.3, hematocrit 33.9. Patient was admitted for further management with diagnosis of left shoulder dislocation, acute renal failure, diabetes mellitus, anemia, chronic heel ulcer CONSULTANTS: cigar head piercer Dr. Day Orthopedic surgery Dr. Ghosh [facility] COURSE: Patient admitted to medical surgical floor. Orthopedic surgeon consult was requested. Surgeon seen and evaluated the patient and noted no ecchymosis or swelling to suggest recent trauma. According to surgeon it was likely chronic dislocation. Patient was not a good candidate for surgical intervention given that dislocation was old. He recommended conservative management. Pain management provided as needed, pain was controlled. Home medications were resumed. Patient was working with physical and occupational therapists. Truck Farmer seen and evaluated the patient in regards to acute renal failure. Patient was started on IV hydration. Renal parameters and electrolytes were closely monitored. Electrolytes were corrected as needed. Nephrotoxics were avoided. Next day creatinine down to 1.0 and BUN down to 42. Acute renal failure resolved. Hemoglobin and hematocrit were closely monitored, no change on the next day, likely patient baseline. Wound care provider for chronic heel ulcer present on admission. Blood sugar was managed with sliding scale insulin. Dietary evaluation was requested in regards to low albumin. [employer] Machine Operator recommended increase protein intake to improve wound healing. DVT prophylaxis provided. Patient was stable for discharge back to shelter facility. Due to rapid and unexpected improvement in patient condition, the patient was discharged in one day. FINAL DIAGNOSES: Left shoulder dislocation Acute renal failure , resolved Diabetes mellitus Anemia Chronic heel ulcer DISCHARGE MEDICATIONS: See Medication Reconciliation list. DISCHARGE INSTRUCTIONS: Patient was discharged to shelter facility. Follow up with medical doctor at the facility I have been assigned to dictate discharge summary for this account. I was not involved in the patient's management. Fermin ([facility]),Aster BRAGG Aug 08, 2017 08:55
== END 2017-08-06 18:36 | DRG 565 ==
LOC: EDBD 10:28 → EDUNIT# 10:28 → EMR 10:52 → 4E 11:26 → EDBEDREQ 11:39
DX: M24.812 Other specific joint derangements of left shoulder, not elsewhere classified (principal); N17.9 Acute kidney failure, unspecified; Y92.129 Unspecified place in nursing home as the place of occurrence of the external cause; M25.512 Pain in left shoulder; E11.9 Type 2 diabetes mellitus without complications; D64.9 Anemia, unspecified; L89.609 Pressure ulcer of unspecified heel, unspecified stage; I10 Essential (primary) hypertension; Z91.81 History of falling
CPT/HCPCS: 36415; 80048; 80053; 85025; 85610; 85730; 86850; 86900; 86901; 99285

== ENCOUNTER 2017-09-24 18:27 | Inpatient (IN) | payer MEDICARE, MEDICAID ==
[~2017-09-24] VITALS: Ht 180.3 cm; Wt 60.0 kg
[~2017-09-24 18:27] MED LIST changes: +VITAMIN C500 M1 ORAL; +ZINC SULFATE220 M1 ORAL
[2017-09-24] MEDS ORDERED: Cephalexin 250 MG/5 ML SUSP 100ml ORAL ONE (19:30)
[2017-09-24] MEDS ORDERED: Cephalexin 500mg cap ORAL ONE (19:45)
[2017-09-24] MEDS ORDERED: Cephalexin 500mg cap ONE (19:46)
[2017-09-24 20:53] LABS: APPEARANCE,URINE SLIGHTLY CLOUDY; BILIRUBIN, URINE NEGATIVE (NEGATIVE); COLOR,URINE PALE YELLOW; GLUCOSE, URINE (UA) NEGATIVE (NEGATIVE); KETONES,URINE 1+ (NEGATIVE); LEUKOCYTE ESTERASE ,URINE 3+ (NEGATIVE); NITRITE,URINE NEGATIVE (NEGATIVE); PH,URINE 7 (4.5-8.0); PROTEIN,URINE 3+ (NEGATIVE); UROBILINOGEN,URINE NORMAL MG/DL (0.0-1.0)
[2017-09-24 22:02] VITALS: BP 134/43
[2017-09-24] MEDS ORDERED: Zolpidem 5mg tab ORAL PRN (22:45)
[2017-09-24] MEDS ORDERED: Mylanta II UD 30ml ORAL PRN (22:45)
[2017-09-24] MEDS ORDERED: Norco 5mg/325mg tab ORAL PRN (22:45)
[2017-09-24] MEDS ORDERED: Miralax 17gm pkt ORAL PRN (22:45)
[2017-09-24] MEDS ORDERED: Ertapenem (INVanz) 1gm Inj IM ONE (22:45)
[2017-09-24] MEDS ORDERED: LORazepam Inj 2mg/ml 1ml IV PRN (22:45)
[2017-09-24] MEDS ORDERED: Morphine Sulfate 4mg/ml Inj IVP PRN (23:00)
[2017-09-24] MEDS ORDERED: Ertapenem 1 GM in NS 55 ML IVPB ONE (23:15)
[2017-09-24] MEDS ORDERED: Lidocaine 1% MPF 10mg/ml 5ml ONE (23:29)
[2017-09-24 23:48] VITALS: BP 95/54
[2017-09-25] VITALS (7 sets, daily range): BP systolic 97–146; BP diastolic 46–74
[2017-09-25 00:36] LABS: BASOPHILS % (AUTO) 0.6 % (0.0-2.0); EOSINOPHILS % (AUTO) 1.7 % (0.0-3.0); HEMATOCRIT 40.9 % (42.0-52.0); HEMOGLOBIN 13.3 G/DL (14.2-18.0); LYMPHOCYTES % (AUTO) 12.5 % (20.0-45.0); MEAN CORPUSCULAR VOLUME 82 FL (80-99); MONOCYTES % (AUTO) 8.2 % (1.0-10.0); PLATELET COUNT 424 K/UL (150-450); RED BLOOD COUNT 5.01 M/UL (4.70-6.10); RED CELL DISTRIBUTION WIDTH 14.3 % (11.6-14.8); WHITE BLOOD COUNT 16.7 K/UL (4.8-10.8)
[2017-09-25 01:03] LABS: ALANINE AMINOTRANSFERASE 12 U/L (12-78); ALBUMIN 3.7 G/DL (3.4-5.0); ALBUMIN/GLOBULIN RATIO 0.8 (1.0-2.7); ALKALINE PHOSPHATASE 80 U/L (46-116); ANION GAP 9 mmol/L (5-15); ASPARTATE AMINO TRANSFERASE 12 U/L (15-37); BILIRUBIN,TOTAL 0.6 MG/DL (0.2-1.0); BLOOD UREA NITROGEN 23 mg/dL (7-18); CALCIUM 9.4 MG/DL (8.5-10.1); CARBON DIOXIDE 28 MMOL/L (21-32); CHLORIDE 103 MMOL/L (98-107); CHOLESTEROL 245 MG/DL (< 200); CKMB 0.6 NG/ML (0.0-3.6); CREATININE 1.2 MG/DL (0.55-1.30); HDL CHOLESTEROL 59 MG/DL (40-60); POTASSIUM 4.4 MMOL/L (3.5-5.1); SODIUM 140 MMOL/L (136-145); TRIGLYCERIDES 110 MG/DL (30-150)
--- NOTE | 2017-09-25 01:07 | Emergency Room Report ---
History of Present Illness General Chief Complaint: Male Urogenital Problems Source: Medical Record Present Illness HPI Patient is a 77-year-old male sent in by residential for increased difficulty with urination. The patient was noted to have a resistant urinary tract infection. Patient was noted to have previous chronic dislocation to his left shoulder. History is markedly limited by patient's poor cooperation. Allergies: Coded Allergies: No Known Allergies (Unverified , 07/19/17) Patient History Past Medical History: see triage record Reviewed Nursing Documentation: PMH: Agreed; PSxH: Agreed Nursing Documentation-PMH Past Medical History: No History, Except For Hx Diabetes: Yes Hx Cancer: No Hx Gastrointestinal Problems: No Review of Systems All Other Systems: limited - by poor historian Physical Exam Vital Signs Date Time Temp Pulse Resp B/P (MAP) Pulse Ox O2 Delivery O2 Flow Rate FiO2 09/24/17 18:11 97.2 77 20 147/72 96 Room Air 97.2 Sp02 EP Interpretation: reviewed, normal General Appearance: normal inspection, well appearing, no apparent distress, alert, GCS 15 Head: atraumatic ENT: normal ENT inspection, hearing grossly normal, normal voice Neck: normal inspection, full range of motion, supple, no bony tend Respiratory: normal inspection, lungs clear, normal breath sounds, no respiratory distress, no retraction, no wheezing Cardiovascular #1: regular rate, rhythm, no edema Gastrointestinal: normal inspection, normal bowel sounds, non tender, soft, no guarding, no hernia Genitourinary: no CVA tenderness Musculoskeletal: normal inspection, back normal, normal range of motion, other - left shoulder anterior fullness, decreased ROM Neurologic: normal inspection, alert, responsive, speech normal Psychiatric: normal inspection, judgement/insight normal, mood/affect normal Skin: normal inspection, normal color, no rash Medical Decision Making Diagnostic Impression: Primary Impression: Sepsis Additional Impression: Urinary tract infection ER Course .Patient presented for dysuria. Differential diagnosis included was not limited to appendicitis, urinary tract infection, pelvic inflammatory disease, urethritis, herpes among others.Because of complexity of patient's case laboratory testing and imaging studies were ordered. The patient was noted to be initially uncooperative and initially refused laboratory testing and cultures. The patient subsequently cooperated with the IV medications.The patient refused chest x-ray. Dr. Samir Cramer was contacted for inpatient management. Labs Test 09/24/17 19:18 09/24/17 23:00 Urine Color Pale yellow Urine Appearance Slightly cloudy Urine pH 7 (4.5-8.0) Urine Specific Dutton 1.010 (1.005-1.035) Urine Protein 3+ (NEGATIVE) Urine Glucose (UA) Negative (NEGATIVE) Urine Ketones 1+ (NEGATIVE) Urine Occult Blood 5+ (NEGATIVE) Urine Nitrite Negative (NEGATIVE) Urine Bilirubin Negative (NEGATIVE) Urine Urobilinogen Normal MG/DL (0.0-1.0) Urine Leukocyte Esterase 3+ (NEGATIVE) Urine RBC 15-20 /HPF (0 - 0) Urine WBC 30-40 /HPF (0 - 0) Urine Squamous Epithelial Cells None /LPF (NONE/OCC) Urine Amorphous Sediment Moderate /LPF (NONE) Urine Bacteria Many /HPF (NONE) White Blood Count 16.7 K/UL (4.8-10.8) Red Blood Count 5.01 M/UL (4.70-6.10) Hemoglobin 13.3 G/DL (14.2-18.0) Hematocrit 40.9 % (42.0-52.0) Mean Corpuscular Volume 82 FL (80-99) Mean Corpuscular Hemoglobin 26.5 PG (27.0-31.0) Mean Corpuscular Hemoglobin Concent 32.4 G/DL (32.0-36.0) Red Cell Distribution Width 14.3 % (11.6-14.8) Platelet Count 424 K/UL (150-450) Mean Platelet Volume 6.8 FL (6.5-10.1) Neutrophils (%) (Auto) 77.0 % (45.0-75.0) Lymphocytes (%) (Auto) 12.5 % (20.0-45.0) Monocytes (%) (Auto) 8.2 % (1.0-10.0) Eosinophils (%) (Auto) 1.7 % (0.0-3.0) Basophils (%) (Auto) 0.6 % (0.0-2.0) Sodium Level 140 MMOL/L (136-145) Potassium Level 4.4 MMOL/L (3.5-5.1) Chloride Level 103 MMOL/L (98-107) Carbon Dioxide Level 28 MMOL/L (21-32) Anion Gap 9 mmol/L (5-15) Blood Urea Nitrogen 23 mg/dL (7-18) Creatinine 1.2 MG/DL (0.55-1.30) Estimat Glomerular Filtration Rate mL/min (>60) Glucose Level 120 MG/DL (74-106) Calcium Level 9.4 MG/DL (8.5-10.1) Total Bilirubin 0.6 MG/DL (0.2-1.0) Aspartate Amino Transf (AST/SGOT) 12 U/L (15-37) Alanine Aminotransferase (ALT/SGPT) 12 U/L (12-78) Alkaline Phosphatase 80 U/L (46-116) Total Creatine Kinase 50 U/L (26-308) Creatine Kinase MB 0.6 NG/ML (0.0-3.6) Creatine Kinase MB Relative Index 1.2 Troponin I 0.000 ng/mL (0.000-0.056) Total Protein 8.3 G/DL (6.4-8.2) Albumin 3.7 G/DL (3.4-5.0) Globulin 4.6 g/dL Albumin/Globulin Ratio 0.8 (1.0-2.7) Triglycerides Level 110 MG/DL (30-150) Cholesterol Level 245 MG/DL (< 200) LDL Cholesterol 169 mg/dL (<100) HDL Cholesterol 59 MG/DL (40-60) Cholesterol/HDL Ratio 4.2 (3.3-4.4) Thyroid Stimulating Hormone (TSH) 1.350 uiU/mL (0.358-3.740) EKG Diagnostic Results Rate: tachycardiac Rhythm: NSR ST Segments: no acute changes Rhythm Strip Diag. Results EP Interpretation: yes Rhythm: NSR, no PVC's, no ectopy Last Vital Signs Date Time Temp Pulse Resp B/P (MAP) Pulse Ox O2 Delivery O2 Flow Rate FiO2 09/24/17 23:48 113 22 95/54 96 Room Air 09/24/17 22:02 98.3 98.3 Status: unchanged Disposition: ADMITTED INPATIENT Condition: Serious Referrals: Samir Cramer DO (PCP) Gagandeep Ashford MD Sep 25, 2017 01:07
[2017-09-25] MEDS ORDERED: Tamsulosin 0.4mg cap ORAL ONE (02:52)
[2017-09-25] MEDS: Tamsulosin 0.4mg cap ORAL SCH ×2 (02:53→21:00)
[2017-09-25] MEDS ORDERED: Morphine Sulfate 2mg/ml Inj IVP PRN (08:15)
--- NOTE | 2017-09-25 14:12 | Consultation ---
History of Present Illness General Date patient seen: Sep 25, 2017 Chief Complaint: Male Urogenital Problems Present Illness HPI 77-year-old male with hx of BPH, COPD, cachexia, custodial resident sent in by custodial for increased difficulty with urination. The patient was noted to have a resistant urinary tract infection. History is markedly limited by patient's poor cooperation. Pt looks chronically ill. Allergies: Coded Allergies: No Known Allergies (Unverified , 07/19/17) Medication History Scheduled Ascorbic Acid* (Vitamin C*), 500 MG ORAL DAILY, (Reported) Docusate Sodium* (Docusate Sodium*), 100 MG ORAL TWICE A DAY, (Reported) Ertapenem Sodium* (INVanz*), 1 GM IVPB Q24H, (Reported) Multivitamin With Minerals (Multivitamins With Minerals*), 1 TAB ORAL DAILY, ( Reported) Nitrofurantoin Macrocrystal (Nitrofurantoin), 100 MG PO BID, (Reported) Tamsulosin Hcl (Tamsulosin Hcl*), 0.4 MG ORAL BEDTIME, (Reported) Trimethoprim/Sulfamethoxazole 160/800* (Bactrim Ds Tablet*), 1 TAB ORAL Q12H Zinc Sulfate (Zinc Sulfate*), 220 MG ORAL DAILY, (Reported) Scheduled PRN Acetaminophen (Acetaminophen), 650 MG ORAL Q4HR PRN for Mild Pain/Temp > 100.5, (Reported) Hydrocodone Bit/Acetaminophen 5-325* ([place] 5-325 Tablet*), 1 TAB ORAL Q4H PRN for Moderate Pain (Pain Scale 4-6), (Reported) Melatonin (Melatonin), 3 MG PO for Insomnia, (Reported) Ondansetron* (Zofran*), 4 MG ORAL Q6H PRN for Nausea & Vomiting, (Reported) Patient History Healthcare decision maker Resuscitation status Full Code Advanced Directive on File No Past Medical/Surgical History Past Medical/Surgical History: (1) BPH (benign prostatic hyperplasia) (2) Chronic heel ulcer (3) Anemia Review of Systems Constitutional: Reports: no symptoms Eye: Reports: no symptoms Physical Exam General Appearance: cachetic Lines, tubes and drains: peripheral HEENT: normocephalic, anicteric Neck: non-tender, normal alignment Respiratory/Chest: chest wall non-tender Breasts: no masses Cardiovascular/Chest: normal peripheral pulses, normal rate Abdomen: normal bowel sounds Last 24 Hour Vital Signs Date Time Temp Pulse Resp B/P (MAP) Pulse Ox O2 Delivery O2 Flow Rate FiO2 09/25/17 12:00 67 09/25/17 12:00 98.2 77 20 119/52 98 Room Air 98.2 09/25/17 08:00 97.7 87 19 116/52 96 Room Air 97.7 09/25/17 08:00 93 09/25/17 04:15 98.1 92 18 120/54 97 Room Air 98.1 09/25/17 04:00 92 09/25/17 03:50 98.2 100 22 146/46 97 Room Air 09/25/17 03:09 100 16 146/46 97 Room Air 09/25/17 01:56 87 20 97/46 96 Room Air 09/24/17 23:48 113 22 95/54 96 Room Air 09/24/17 22:02 98.3 115 16 134/43 96 Room Air 98.3 09/24/17 18:11 97.2 77 20 147/72 96 Room Air 97.2 Intake and Output 09/24/17 09/25/17 19:00 07:00 Intake Total 0 ml 55 ml Balance 0 ml 55 ml Intake Oral 0 ml IV Total 55 ml # Voids 1 Laboratory Tests Test 09/24/17 19:18 09/24/17 23:00 Urine Color Pale yellow Urine Appearance Slightly cloudy Urine pH 7 (4.5-8.0) Urine Specific [place] 1.010 (1.005-1.035) Urine Protein 3+ (NEGATIVE) H Urine Glucose (UA) Negative (NEGATIVE) Urine Ketones 1+ (NEGATIVE) H Urine Occult Blood 5+ (NEGATIVE) H Urine Nitrite Negative (NEGATIVE) Urine Bilirubin Negative (NEGATIVE) Urine Urobilinogen Normal MG/DL (0.0-1.0) Urine Leukocyte Esterase 3+ (NEGATIVE) H Urine RBC 15-20 /HPF (0 - 0) H Urine WBC 30-40 /HPF (0 - 0) H Urine Squamous Epithelial Cells None /LPF (NONE/OCC) Urine Amorphous Sediment Moderate /LPF (NONE) H Urine Bacteria Many /HPF (NONE) H White Blood Count 16.7 K/UL (4.8-10.8) H Red Blood Count 5.01 M/UL (4.70-6.10) Hemoglobin 13.3 G/DL (14.2-18.0) L Hematocrit 40.9 % (42.0-52.0) L Mean Corpuscular Volume 82 FL (80-99) Mean Corpuscular Hemoglobin 26.5 PG (27.0-31.0) L Mean Corpuscular Hemoglobin Concent 32.4 G/DL (32.0-36.0) Red Cell Distribution Width 14.3 % (11.6-14.8) Platelet Count 424 K/UL (150-450) Mean Platelet Volume 6.8 FL (6.5-10.1) Neutrophils (%) (Auto) 77.0 % (45.0-75.0) H Lymphocytes (%) (Auto) 12.5 % (20.0-45.0) L Monocytes (%) (Auto) 8.2 % (1.0-10.0) Eosinophils (%) (Auto) 1.7 % (0.0-3.0) Basophils (%) (Auto) 0.6 % (0.0-2.0) Sodium Level 140 MMOL/L (136-145) Potassium Level 4.4 MMOL/L (3.5-5.1) Chloride Level 103 MMOL/L (98-107) Carbon Dioxide Level 28 MMOL/L (21-32) Anion Gap 9 mmol/L (5-15) Blood Urea Nitrogen 23 mg/dL (7-18) H Creatinine 1.2 MG/DL (0.55-1.30) Estimat Glomerular Filtration Rate mL/min (>60) Glucose Level 120 MG/DL (74-106) H Lactic Acid Level 1.20 mmol/L (0.4-2.0) Calcium Level 9.4 MG/DL (8.5-10.1) Total Bilirubin 0.6 MG/DL (0.2-1.0) Aspartate Amino Transf (AST/SGOT) 12 U/L (15-37) L Alanine Aminotransferase (ALT/SGPT) 12 U/L (12-78) Alkaline Phosphatase 80 U/L (46-116) Total Creatine Kinase 50 U/L (26-308) Creatine Kinase MB 0.6 NG/ML (0.0-3.6) Creatine Kinase MB Relative Index 1.2 Troponin I 0.000 ng/mL (0.000-0.056) Total Protein 8.3 G/DL (6.4-8.2) H Albumin 3.7 G/DL (3.4-5.0) Globulin 4.6 g/dL Albumin/Globulin Ratio 0.8 (1.0-2.7) L Triglycerides Level 110 MG/DL (30-150) Cholesterol Level 245 MG/DL (< 200) H LDL Cholesterol 169 mg/dL (<100) H HDL Cholesterol 59 MG/DL (40-60) Cholesterol/HDL Ratio 4.2 (3.3-4.4) Thyroid Stimulating Hormone (TSH) 1.350 uiU/mL (0.358-3.740) Microbiology Date/Time Source Procedure Growth Status 09/24/17 19:18 Urine,Clean Catch Urine Culture - Preliminary Resulted Height (Feet): 5 Height (Inches): 11.00 Weight (Pounds): 145 Medications Current Medications Medications (Trade) Dose Ordered Sig/Nicole Route PRN Reason Start Time Stop Time Status Last Admin Dose Admin Acetaminophen (Tylenol) 650 mg Q4H PRN ORAL fever 09/24/17 22:45 10/24/17 22:44 Acetaminophen/ Hydrocodone Bitart (Ipava 5/325) 1 tab Q4H PRN ORAL Moderate Pain (Pain Scale 4-6) 09/24/17 22:45 10/01/17 22:44 Al Hydroxide/Mg Hydroxide (Mylanta II) 30 ml Q6H PRN ORAL dyspepsia 09/24/17 22:45 10/24/17 22:44 Dextrose (Dextrose 50%) STAT PRN IV Hypoglycemia 09/24/17 22:45 10/24/17 22:44 Lorazepam (Ativan 2mg/ml 1ml) 0.5 mg Q4H PRN IV For Anxiety 09/24/17 22:45 10/01/17 22:44 Morphine Sulfate (Morphine Sulfate) 1 mg Q4H PRN IVP Severe Pain (Pain Scale 7-10) 09/25/17 08:15 10/02/17 08:14 Ondansetron HCl (Zofran) 4 mg Q6H PRN IVP Nausea & Vomiting 09/24/17 22:45 10/24/17 22:44 Polyethylene Glycol (Miralax) 17 gm HSPRN PRN ORAL Constipation 09/24/17 22:45 10/24/17 22:44 Tamsulosin HCl (Flomax) 0.4 mg BEDTIME ORAL 09/25/17 21:00 10/25/17 20:59 09/25/17 02:53 Zolpidem Tartrate (Ambien) 5 mg HSPRN PRN ORAL Insomnia 09/24/17 22:45 10/01/17 22:44 Assessment/Plan Problem List: (1) MDRO (multiple drug resistant organisms) resistance ICD Codes: Z16.35 - Resistance to multiple antimicrobial drugs SNOMED: 904566079 (2) Urinary tract infection ICD Codes: N39.0 - Urinary tract infection, site not specified SNOMED: 17779149 (3) Severe protein-calorie malnutrition ICD Codes: E43 - Unspecified severe protein-calorie malnutrition SNOMED: 531231839 (4) Chronic heel ulcer ICD Codes: L97.409 - Non-pressure chronic ulcer of unspecified heel and midfoot with unspecified severity SNOMED: 97598683219325436 (5) BPH (benign prostatic hyperplasia) ICD Codes: N40.0 - Benign prostatic hyperplasia without lower urinary tract symptoms SNOMED: 887930595 Assessment/Plan broad spectrum abx wound care check cultures check electrolytes anemia w/u Margie Britton MD Sep 25, 2017 14:12
--- NOTE | 2017-09-25 17:30 | History and Physical Report ---
DATE OF ADMISSION: 09/24/2017 CONSULTANTS: 1. Margie Britton M.D. 2. Gino James M.D. 3. Lea Dodd M.D. CHIEF COMPLAINT: Weakness, lethargy, and resistant urinary tract infection. BRIEF HISTORY: This is a 77-year-old male from [facility], who presented with increased lethargy and weakness, found to have resistant urinary tract infection, sent to [facility] [place], diagnosed with the above and admitted to telemetry for further care. Currently, calm, in bed. No complaint. PAST MEDICAL HISTORY: Includes decubitus ulcer, weakness, and anemia. PAST SURGICAL HISTORY: None. MEDICATIONS: Include Flomax, morphine sulfate, hydrocodone, Zofran, zolpidem, lorazepam, ertapenem, and Keflex. ALLERGIES: Denies. SOCIAL HISTORY: Positive smoking. No alcohol. No intravenous drug abuse. FAMILY HISTORY: Noncontributory. REVIEW OF SYSTEMS: No chest pain. No shortness of breath. No nausea, vomiting, or diarrhea. PHYSICAL EXAMINATION: GENERAL: Calm in bed, oriented x2, in no acute distress. VITAL SIGNS: Temperature is 97 degrees, pulse 80, respirations 19, and blood pressure 116/52. CARDIOVASCULAR: No murmurs. LUNGS: Distant and clear. ABDOMEN: Bowels sound positive. Nontender. Nondistended. EXTREMITIES: Show no cyanosis, clubbing, or edema. NEUROLOGIC: The patient moves all extremities. Slightly weak. LABORATORY AND DIAGNOSTIC DATA: White count 16, hemoglobin and hematocrit are 13 and 40, and platelets 424,000. BMP shows BUN and creatinine 23 and 1.2 and glucose 120. AST 12. Troponin 0.00. Urinalysis showed 3+ leukocyte esterase. ASSESSMENT: 1. Resistant urinary tract infection. 2. Decubitus ulcer. 3. Anemia. 4. Weakness. PLAN: 1. Continue previous medications. 2. OT, PT, and dietary followup. 3. Wound care. 4. Antibiotics per Infectious Disease. 5. Resume home medications. 6. CBC and BMP in the morning. 7. Dr. Britton, Dr. James, and Dr. Dodd to consult. Samir Cramer D.O. DR: CINDA JOB#: [id number] CC:
[2017-09-26] VITALS: BP 108/65
[2017-09-26 04:00] VITALS: BP 110/65
[2017-09-26 07:16] LABS: BASOPHILS % (AUTO) 1.2 % (0.0-2.0); EOSINOPHILS % (AUTO) 5.2 % (0.0-3.0); HEMATOCRIT 38.2 % (42.0-52.0); HEMOGLOBIN 12.5 G/DL (14.2-18.0); LYMPHOCYTES % (AUTO) 21.9 % (20.0-45.0); MEAN CORPUSCULAR VOLUME 83 FL (80-99); MONOCYTES % (AUTO) 9.4 % (1.0-10.0); NEUTROPHILS % (AUTO) 62.3 % (45.0-75.0); PLATELET COUNT 418 K/UL (150-450); RED BLOOD COUNT 4.63 M/UL (4.70-6.10); RED CELL DISTRIBUTION WIDTH 13.9 % (11.6-14.8)
[2017-09-26 07:19] LABS: ALANINE AMINOTRANSFERASE 12 U/L (12-78); ALBUMIN/GLOBULIN RATIO 0.6 (1.0-2.7); ALKALINE PHOSPHATASE 65 U/L (46-116); ANION GAP 7 mmol/L (5-15); ASPARTATE AMINO TRANSFERASE 14 U/L (15-37); BILIRUBIN,TOTAL 0.4 MG/DL (0.2-1.0); BLOOD UREA NITROGEN 22 mg/dL (7-18); CALCIUM 8.9 MG/DL (8.5-10.1); CARBON DIOXIDE 27 MMOL/L (21-32); CHLORIDE 104 MMOL/L (98-107); CREATININE 1.1 MG/DL (0.55-1.30); POTASSIUM 4.3 MMOL/L (3.5-5.1); SODIUM 138 MMOL/L (136-145)
[2017-09-26 07:25] LABS: PHOSPHORUS 3.4 MG/DL (2.5-4.9)
[2017-09-26 08:00] VITALS: BP 110/66
--- NOTE | 2017-09-26 10:10 | Cardiology Report ---
APPROVED REPORT EKG Measurement Heart [id number] Sinus rhythm with premature atrial complexes with aberrant conduction Minimal voltage criteria for LVH, may be normal variant Borderline ECG
--- NOTE | 2017-09-26 10:37 | General Progress Note ---
Assessment/Plan Problem List: (1) Decubitus ulcer, heel, left, unstageable ICD Codes: L89.620 - Pressure ulcer of left heel, unstageable SNOMED: 517940654 (2) Decubitus ulcer of right heel, unstageable ICD Codes: L89.610 - Pressure ulcer of right heel, unstageable SNOMED: 825850418 (3) Weak ICD Codes: R53.1 - Weakness SNOMED: 82862823 (4) Urinary tract infection ICD Codes: N39.0 - Urinary tract infection, site not specified SNOMED: 08422749 (5) Anemia ICD Codes: D64.9 - Anemia, unspecified SNOMED: 501691131 (6) Chronic heel ulcer ICD Codes: L97.409 - Non-pressure chronic ulcer of unspecified heel and midfoot with unspecified severity SNOMED: 42961268752493040 (7) Cachexia ICD Codes: R64 - Cachexia SNOMED: 766976296 (8) Sepsis ICD Codes: A41.9 - Sepsis, unspecified organism SNOMED: 88655430 Status: unchanged Assessment/Plan ot pt diet wound care cbc bmp am Subjective Constitutional: Reports: weakness Allergies: Coded Allergies: No Known Allergies (Unverified , 07/19/17) All Systems: reviewed and negative except above Subjective calm in bed Objective Last 24 Hour Vital Signs Date Time Temp Pulse Resp B/P (MAP) Pulse Ox O2 Delivery O2 Flow Rate FiO2 09/26/17 04:00 97.6 83 20 110/65 93 Room Air 97.6 09/26/17 03:37 83 09/26/17 00:07 79 09/26/17 00:00 97.7 83 18 108/65 94 Room Air 97.7 09/25/17 20:00 97.8 97 20 106/74 94 Room Air 97.8 09/25/17 19:34 93 09/25/17 16:00 75 09/25/17 16:00 97.5 88 18 117/59 97 Room Air 97.5 09/25/17 12:00 67 09/25/17 12:00 98.2 77 20 119/52 98 Room Air 98.2 Intake and Output 09/25/17 09/26/17 19:00 07:00 Intake Total 360 ml 240 ml Balance 360 ml 240 ml Intake Oral 360 ml 240 ml # Voids 4 2 Laboratory Tests 09/26/17 05:55: White Blood Count 9.0, Red Blood Count 4.63L, Hemoglobin 12.5L, Hematocrit 38.2L , Mean Corpuscular Volume 83, Mean Corpuscular Hemoglobin 27.0, Mean Corpuscular Hemoglobin Concent 32.7, Red Cell Distribution Width 13.9, Platelet Count 418, Mean Platelet Volume 6.7, Neutrophils (%) (Auto) 62.3, Lymphocytes (% ) (Auto) 21.9, Monocytes (%) (Auto) 9.4, Eosinophils (%) (Auto) 5.2H, Basophils (%) (Auto) 1.2, Sodium Level 138, Potassium Level 4.3, Chloride Level 104, Carbon Dioxide Level 27, Anion Gap 7, Blood Urea Nitrogen 22H, Creatinine 1.1, Estimat Glomerular Filtration Rate , Glucose Level 107H, Calcium Level 8.9, Phosphorus Level 3.4, Magnesium Level 2.0, Total Bilirubin 0.4, Aspartate Amino Transf (AST/SGOT) 14L, Alanine Aminotransferase (ALT/SGPT) 12, Alkaline Phosphatase 65, Pro-B-Type Natriuretic Peptide 1606H, Total Protein 7.9, Albumin 3.0L, Globulin 4.9, Albumin/Globulin Ratio 0.6L Height (Feet): 5 Height (Inches): 11.00 Weight (Pounds): 145 General Appearance: lethargic EENT: normal ENT inspection Neck: normal alignment Cardiovascular: normal peripheral pulses, normal rate, regular rhythm Respiratory/Chest: chest wall non-tender, lungs clear, normal breath sounds Abdomen: normal bowel sounds, non tender, soft Extremities: normal inspection Edema: no edema noted Arm (L), no edema noted Arm (R), no edema noted Leg (L), no edema noted Leg (R), no edema noted Pedal (L), no edema noted Pedal (R), no edema noted Generalized Neurologic: responsive, motor weakness Skin: normal pigmentation, warm/dry Samir Cramer DO Sep 26, 2017 10:37
--- NOTE | 2017-09-26 11:21 | Consultation ---
History of Present Illness General Date patient seen: Sep 26, 2017 Chief Complaint: Male Urogenital Problems Present Illness HPI 77 y/o M with hx of BPH, COPD, DM2, cachexia, chronic left shoulder dislocation group home resident presents to ED on with increased difficulty with urination, lethargy and weakness. Apparently patient was found to have resistant organisms in urine culture. Patient afebrile INitial leukocytosis to 16, now resolved Allergies: Coded Allergies: No Known Allergies (Unverified , 07/19/17) Medication History Scheduled Ascorbic Acid* (Vitamin C*), 500 MG ORAL DAILY, (Reported) Docusate Sodium* (Docusate Sodium*), 100 MG ORAL TWICE A DAY, (Reported) Ertapenem Sodium* (INVanz*), 1 GM IVPB Q24H, (Reported) Multivitamin With Minerals (Multivitamins With Minerals*), 1 TAB ORAL DAILY, ( Reported) Nitrofurantoin Macrocrystal (Nitrofurantoin), 100 MG PO BID, (Reported) Tamsulosin Hcl (Tamsulosin Hcl*), 0.4 MG ORAL BEDTIME, (Reported) Trimethoprim/Sulfamethoxazole 160/800* (Bactrim Ds Tablet*), 1 TAB ORAL Q12H Zinc Sulfate (Zinc Sulfate*), 220 MG ORAL DAILY, (Reported) Scheduled PRN Acetaminophen (Acetaminophen), 650 MG ORAL Q4HR PRN for Mild Pain/Temp > 100.5, (Reported) Hydrocodone Bit/Acetaminophen 5-325* ([place] 5-325 Tablet*), 1 TAB ORAL Q4H PRN for Moderate Pain (Pain Scale 4-6), (Reported) Melatonin (Melatonin), 3 MG PO for Insomnia, (Reported) Ondansetron* (Zofran*), 4 MG ORAL Q6H PRN for Nausea & Vomiting, (Reported) Patient History Healthcare decision maker Resuscitation status Full Code Advanced Directive on File No Patient History Narrative . PMHx: as above Shx: Positive smoking. No alcohol. No intravenous drug abuse. Fhx: non contributory Review of Systems All Other Systems: negative except mentioned in HPI Physical Exam Physical Exam Narrative GENERAL: Calm in bed, oriented x2, in no acute distress.. CARDIOVASCULAR: No murmurs. LUNGS: Distant and clear. ABDOMEN: Bowels sound positive. Nontender. Nondistended. EXTREMITIES: Show no cyanosis, clubbing, or edema. NEUROLOGIC: The patient moves all extremities. Slightly weak. Last 24 Hour Vital Signs Date Time Temp Pulse Resp B/P (MAP) Pulse Ox O2 Delivery O2 Flow Rate FiO2 09/26/17 04:00 97.6 83 20 110/65 93 Room Air 97.6 09/26/17 03:37 83 09/26/17 00:07 79 09/26/17 00:00 97.7 83 18 108/65 94 Room Air 97.7 09/25/17 20:00 97.8 97 20 106/74 94 Room Air 97.8 09/25/17 19:34 93 09/25/17 16:00 75 09/25/17 16:00 97.5 88 18 117/59 97 Room Air 97.5 09/25/17 12:00 67 09/25/17 12:00 98.2 77 20 119/52 98 Room Air 98.2 Intake and Output 09/25/17 09/26/17 19:00 07:00 Intake Total 360 ml 240 ml Balance 360 ml 240 ml Intake Oral 360 ml 240 ml # Voids 4 2 Laboratory Tests Test 09/26/17 05:55 White Blood Count 9.0 K/UL (4.8-10.8) Red Blood Count 4.63 M/UL (4.70-6.10) L Hemoglobin 12.5 G/DL (14.2-18.0) L Hematocrit 38.2 % (42.0-52.0) L Mean Corpuscular Volume 83 FL (80-99) Mean Corpuscular Hemoglobin 27.0 PG (27.0-31.0) Mean Corpuscular Hemoglobin Concent 32.7 G/DL (32.0-36.0) Red Cell Distribution Width 13.9 % (11.6-14.8) Platelet Count 418 K/UL (150-450) Mean Platelet Volume 6.7 FL (6.5-10.1) Neutrophils (%) (Auto) 62.3 % (45.0-75.0) Lymphocytes (%) (Auto) 21.9 % (20.0-45.0) Monocytes (%) (Auto) 9.4 % (1.0-10.0) Eosinophils (%) (Auto) 5.2 % (0.0-3.0) H Basophils (%) (Auto) 1.2 % (0.0-2.0) Sodium Level 138 MMOL/L (136-145) Potassium Level 4.3 MMOL/L (3.5-5.1) Chloride Level 104 MMOL/L (98-107) Carbon Dioxide Level 27 MMOL/L (21-32) Anion Gap 7 mmol/L (5-15) Blood Urea Nitrogen 22 mg/dL (7-18) H Creatinine 1.1 MG/DL (0.55-1.30) Estimat Glomerular Filtration Rate mL/min (>60) Glucose Level 107 MG/DL (74-106) H Calcium Level 8.9 MG/DL (8.5-10.1) Phosphorus Level 3.4 MG/DL (2.5-4.9) Magnesium Level 2.0 MG/DL (1.8-2.4) Total Bilirubin 0.4 MG/DL (0.2-1.0) Aspartate Amino Transf (AST/SGOT) 14 U/L (15-37) L Alanine Aminotransferase (ALT/SGPT) 12 U/L (12-78) Alkaline Phosphatase 65 U/L (46-116) Pro-B-Type Natriuretic Peptide 1606 pg/mL (0-125) H Total Protein 7.9 G/DL (6.4-8.2) Albumin 3.0 G/DL (3.4-5.0) L Globulin 4.9 g/dL Albumin/Globulin Ratio 0.6 (1.0-2.7) L Height (Feet): 5 Height (Inches): 11.00 Weight (Pounds): 145 Medications Current Medications Medications (Trade) Dose Ordered Sig/Nicole Route PRN Reason Start Time Stop Time Status Last Admin Dose Admin Acetaminophen (Tylenol) 650 mg Q4H PRN ORAL fever 09/24/17 22:45 10/24/17 22:44 Acetaminophen/ Hydrocodone Bitart ([place] 5/325) 1 tab Q4H PRN ORAL Moderate Pain (Pain Scale 4-6) 09/24/17 22:45 10/01/17 22:44 Al Hydroxide/Mg Hydroxide (Mylanta II) 30 ml Q6H PRN ORAL dyspepsia 09/24/17 22:45 10/24/17 22:44 Dextrose (Dextrose 50%) STAT PRN IV Hypoglycemia 09/24/17 22:45 10/24/17 22:44 Lorazepam (Ativan 2mg/ml 1ml) 0.5 mg Q4H PRN IV For Anxiety 09/24/17 22:45 10/01/17 22:44 Morphine Sulfate (Morphine Sulfate) 1 mg Q4H PRN IVP Severe Pain (Pain Scale 7-10) 09/25/17 08:15 10/02/17 08:14 Ondansetron HCl (Zofran) 4 mg Q6H PRN IVP Nausea & Vomiting 09/24/17 22:45 10/24/17 22:44 Polyethylene Glycol (Miralax) 17 gm HSPRN PRN ORAL Constipation 09/24/17 22:45 10/24/17 22:44 Tamsulosin HCl (Flomax) 0.4 mg BEDTIME ORAL 09/25/17 21:00 10/25/17 20:59 09/25/17 02:53 Zolpidem Tartrate (Ambien) 5 mg HSPRN PRN ORAL Insomnia 09/24/17 22:45 10/01/17 22:44 Assessment/Plan Assessment/Plan Abx: Keflex x1 09/24 Ertapenem x1 09/24 Assessment: Possible UTI (+difficulty urination) -u/a wbc 30-40, nit neg, leuk +3; ucx >100K GNB -Bcx NTD Leukocytosis, resolved -afebrile BPH COPD DM2 cachexia chronic left shoulder dislocation group home resident Plan: -Start empiric MEropenem pending urine culture -f/u cx -Monitor CBC/CMP, temperatures -aspiration -wound care per hospp protocol Thank you for this consultation. Will continue to follow along with you. Discussed with Radha Ernst M.D. Sep 26, 2017 11:21
[2017-09-26 12:00] VITALS: BP 115/68
--- NOTE | 2017-09-26 12:08 | Cardiology Report ---
APPROVED REPORT EXAM: Two-dimensional and M-mode echocardiogram with Doppler and color Doppler. INDICATION Tachycardia M-Mode DIMENSIONS IVSd1.5 (0.7-1.1cm)Left Atrium (MM)4.0 (1.6-4.0cm) LVDd4.9 (3.5-5.6cm)Aortic Root2.3 (2.0-3.7cm) PWd1.2 (0.7-1.1cm)Aortic Cusp Exc.1.2 (1.5-2.0cm) LVDs3.5 (2.5-4.0cm) PWs2.0 cm Normal left ventricular chamber size. Global left ventricular hypokinesis. Left ventricular ejection fraction estimated to be 40-45 %. Mild left ventricular hypertrophy withasymetrical septal hypertrophy (Mid septum). No evidence of pericardial effusion. All other cardiac chamber sizes are within normal limits. Aortic valve calcification with decreased cusp excursion c/w aortic stenosis. Mildly thickened mitral valve leaflets with normal excursion. Mild mitral annulus and aortic root calcification. Pulmonic valve not visualized. Normal tricuspid valve structure. IVC dilated at 2.0 cm with physiological collapse, suggestive of increased RA pressure. A color flow and spectral Doppler study was performed and revealed: Moderate aortic insufficiency. Peak aortic valve gradient of 40 mmHg and a mean of 23 mmHg. Aortic valve area 0.9 cm2 calculated by continuity equation. Moderate mitral regurgitation. Mitral diastolic velocities suggest mild left ventricular diastolic dysfunction (Grade I). Mild tricuspid regurgitation. Tricuspid systolic velocities suggests peak right ventricular systolic pressure of 45 mmHg, consistent with moderate pulmonary hypertension.
--- NOTE | 2017-09-26 12:11 | Pulmonology Progress Note ---
Assessment/Plan Problems: (1) MDRO (multiple drug resistant organisms) resistance (2) Urinary tract infection (3) COPD (chronic obstructive pulmonary disease) (4) Chronic heel ulcer (5) BPH (benign prostatic hyperplasia) (6) Severe protein-calorie malnutrition Assessment/Plan improving respiratory treatment continue abx check cultures check electrolytes wound care dvt prophylaxis Subjective ROS Limited/Unobtainable: No Interval Events: late note for Constitutional: Reports: no symptoms HEENT: Repors: no symptoms Respiratory: Reports: no symptoms Allergies: Coded Allergies: No Known Allergies (Unverified , 07/19/17) Objective Last 24 Hour Vital Signs Date Time Temp Pulse Resp B/P (MAP) Pulse Ox O2 Delivery O2 Flow Rate FiO2 09/26/17 08:00 98.3 80 18 110/66 94 Room Air 98.3 09/26/17 08:00 53 09/26/17 04:00 97.6 83 20 110/65 93 Room Air 97.6 09/26/17 03:37 83 09/26/17 00:07 79 09/26/17 00:00 97.7 83 18 108/65 94 Room Air 97.7 09/25/17 20:00 97.8 97 20 106/74 94 Room Air 97.8 09/25/17 19:34 93 09/25/17 16:00 75 09/25/17 16:00 97.5 88 18 117/59 97 Room Air 97.5 Intake and Output 09/25/17 09/26/17 19:00 07:00 Intake Total 360 ml 240 ml Balance 360 ml 240 ml Intake Oral 360 ml 240 ml # Voids 4 2 General Appearance: WD/WN HEENT: normocephalic Respiratory/Chest: normal breath sounds Cardiovascular: normal peripheral pulses, regular rhythm Abdomen: soft, non tender Genitourinary: normal external genitalia Extremities: no clubbing Skin: no ulcers 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 Microbiology Date/Time Source Procedure Growth Status 09/24/17 23:00 Blood Blood Culture - Preliminary NO GROWTH AFTER 24 HOURS Resulted 09/24/17 22:45 Blood Blood Culture - Preliminary NO GROWTH AFTER 24 HOURS Resulted 09/24/17 19:18 Urine,Clean Catch Urine Culture - Preliminary Gram Negative Bacillus 1 Resulted Laboratory Tests 09/26/17 05:55: White Blood Count 9.0, Red Blood Count 4.63L, Hemoglobin 12.5L, Hematocrit 38.2L , Mean Corpuscular Volume 83, Mean Corpuscular Hemoglobin 27.0, Mean Corpuscular Hemoglobin Concent 32.7, Red Cell Distribution Width 13.9, Platelet Count 418, Mean Platelet Volume 6.7, Neutrophils (%) (Auto) 62.3, Lymphocytes (% ) (Auto) 21.9, Monocytes (%) (Auto) 9.4, Eosinophils (%) (Auto) 5.2H, Basophils (%) (Auto) 1.2, Sodium Level 138, Potassium Level 4.3, Chloride Level 104, Carbon Dioxide Level 27, Anion Gap 7, Blood Urea Nitrogen 22H, Creatinine 1.1, Estimat Glomerular Filtration Rate , Glucose Level 107H, Calcium Level 8.9, Phosphorus Level 3.4, Magnesium Level 2.0, Total Bilirubin 0.4, Aspartate Amino Transf (AST/SGOT) 14L, Alanine Aminotransferase (ALT/SGPT) 12, Alkaline Phosphatase 65, Pro-B-Type Natriuretic Peptide 1606H, Total Protein 7.9, Albumin 3.0L, Globulin 4.9, Albumin/Globulin Ratio 0.6L Current Medications Medications (Trade) Dose Ordered Sig/Nicole Route PRN Reason Start Time Stop Time Status Last Admin Dose Admin Acetaminophen (Tylenol) 650 mg Q4H PRN ORAL fever 09/24/17 22:45 10/24/17 22:44 Acetaminophen/ Hydrocodone Bitart ([place] 5/325) 1 tab Q4H PRN ORAL Moderate Pain (Pain Scale 4-6) 09/24/17 22:45 10/01/17 22:44 Al Hydroxide/Mg Hydroxide (Mylanta II) 30 ml Q6H PRN ORAL dyspepsia 09/24/17 22:45 10/24/17 22:44 Dextrose (Dextrose 50%) STAT PRN IV Hypoglycemia 09/24/17 22:45 10/24/17 22:44 Lorazepam (Ativan 2mg/ml 1ml) 0.5 mg Q4H PRN IV For Anxiety 09/24/17 22:45 10/01/17 22:44 Meropenem 1 gm/ Dextrose 110 ml @ 220 mls/hr Q8HR IVPB 09/26/17 14:00 10/01/17 13:59 Morphine Sulfate (Morphine Sulfate) 1 mg Q4H PRN IVP Severe Pain (Pain Scale 7-10) 09/25/17 08:15 10/02/17 08:14 Ondansetron HCl (Zofran) 4 mg Q6H PRN IVP Nausea & Vomiting 09/24/17 22:45 10/24/17 22:44 Polyethylene Glycol (Miralax) 17 gm HSPRN PRN ORAL Constipation 09/24/17 22:45 10/24/17 22:44 Tamsulosin HCl (Flomax) 0.4 mg BEDTIME ORAL 09/25/17 21:00 10/25/17 20:59 09/25/17 02:53 Zolpidem Tartrate (Ambien) 5 mg HSPRN PRN ORAL Insomnia 09/24/17 22:45 10/01/17 22:44 Margie Britton MD Sep 26, 2017 12:11
--- NOTE | 2017-09-26 12:29 | Cardiology Report ---
APPROVED REPORT EKG Measurement Heart [id number] Sinus rhythm with marked sinus arrhythmia Otherwise normal ECG
[2017-09-26] MEDS ORDERED: Meropenem 1 GM in D5W 110 ML IVPB SCH (14:00)
[2017-09-26 16:00] VITALS: BP 130/80
[2017-09-26] MEDS: Memantine 5 MG TAB ORAL SCH (17:59)
[2017-09-26] MEDS ORDERED: Memantine 5 MG TAB ORAL SCH (18:00)
[2017-09-26] MEDS ORDERED: Morphine Sulfate 2mg/ml Inj IVP PRN (18:00)
[2017-09-26] MEDS ORDERED: Mylanta II UD 30ml ORAL PRN (18:00)
[2017-09-26] MEDS ORDERED: LORazepam Inj 2mg/ml 1ml IV PRN (18:00)
--- NOTE | 2017-09-26 18:00 | Consultation ---
DATE OF CONSULTATION: 09/26/2017 HISTORY OF PRESENT ILLNESS: This is a 77-year-old male patient with sepsis and urinary tract infection. This patient is a male patient, who is confused and disorganized. His mood is labile. He has got no logical plan for his own self-care, but this patient came in given he has sepsis and urinary tract infection. He has altered mental status and confusion. Cognition has declined below baseline. That is why, the attending has requested daily psychiatric consultation for this patient. He has weakness and lethargy, and he has altered mental status. He also has lot of psychomotor agitation. So, his attending has requested daily psychiatric consultation because of his medical illness causing altered mental status and significant decline in his cognition below baseline. The goal is to prevent any further decline in his cognition, hopefully reduce agitation and restore his cognition close to his baseline. PAST MEDICAL HISTORY: He has anemia, weakness, sepsis, lethargy, urinary tract infection, decubitus ulcers. ALLERGIES: No known drug allergies. SOCIAL HISTORY: The patient is financially supported by [employer] and Medicare. He lives in [facility]. SUBSTANCE ABUSE HISTORY: No known history of drug or alcohol use. FAMILY PSYCHIATRIC HISTORY: Denies. PSYCHIATRIC HISTORY: Paranoid schizophrenia, major depression with psychotic features, rule out dementia with psychosis. MENTAL STATUS EXAMINATION: This is a 77-year-old male. Appearance is disheveled. Attitude, irritable and agitated. Affect, guarded and restricted. Intellect poor. Mood, depressed and anxious. Motor activity, psychomotor agitation. Attention span is poor. Orientation x2. Speech is pressured. Thought process, disorganized and illogical. Thought content, auditory hallucinations and paranoid delusions. Insight and judgment are poor. DIAGNOSES: Major depressive disorder, severe, recurrent with psychotic features, rule out pseudodementia. STRENGTHS: He is moderately better and he has a place to live. WEAKNESSES: Impulsive and no support system. PLAN: I am going to treat this patient with the psychotropic medication regimen consisting of Namenda 5 mg twice a day to reduce any agitation and irritability, Ativan 0.5 mg IV q.4 h. p.r.n. anxiety and agitation, but I am also going to add a dose of Risperdal, add a dose of 0.25 mg twice a day to reduce agitation and irritability. Encouraged him to interact appropriately with staff and other patients. He was seen and assessed at bedside. Also, 20 minutes of supportive psychotherapy is provided for this patient and also insight oriented psychotherapy for 20 minutes to increase the patient's insight into his behavior so that he is aware of his behavior and by being more aware, be less impulsive, agitated, irritable, and overall behavior will improve with that technique. So, 20 minutes of psychotherapy provided. Chart is reviewed. Discussed with staff. The patient is seen and assessed in his room. I would like to thank, Dr. Samir Cramer, for this interesting consultation. Lea Dodd M.D. DR: CLARENCE JOB#: [id number] CC:
--- NOTE | 2017-09-26 18:43 | Cardiac Electrophysiology PN ---
Subjective Subjective VT, CHF EF 40% [id number] Objective Last 24 Hour Vital Signs Date Time Temp Pulse Resp B/P (MAP) Pulse Ox O2 Delivery O2 Flow Rate FiO2 09/26/17 16:00 97.3 88 18 130/80 95 Room Air 97.3 09/26/17 12:00 87 09/26/17 12:00 97.9 78 18 115/68 96 Room Air 97.9 09/26/17 08:00 98.3 80 18 110/66 94 Room Air 98.3 09/26/17 08:00 53 09/26/17 04:00 97.6 83 20 110/65 93 Room Air 97.6 09/26/17 03:37 83 09/26/17 00:07 79 09/26/17 00:00 97.7 83 18 108/65 94 Room Air 97.7 09/25/17 20:00 97.8 97 20 106/74 94 Room Air 97.8 09/25/17 19:34 93 Intake and Output 09/25/17 09/26/17 19:00 07:00 Intake Total 360 ml 240 ml Balance 360 ml 240 ml Intake Oral 360 ml 240 ml # Voids 4 2 Laboratory Tests Test 09/26/17 05:55 White Blood Count 9.0 K/UL (4.8-10.8) Red Blood Count 4.63 M/UL (4.70-6.10) L Hemoglobin 12.5 G/DL (14.2-18.0) L Hematocrit 38.2 % (42.0-52.0) L Mean Corpuscular Volume 83 FL (80-99) Mean Corpuscular Hemoglobin 27.0 PG (27.0-31.0) Mean Corpuscular Hemoglobin Concent 32.7 G/DL (32.0-36.0) Red Cell Distribution Width 13.9 % (11.6-14.8) Platelet Count 418 K/UL (150-450) Mean Platelet Volume 6.7 FL (6.5-10.1) Neutrophils (%) (Auto) 62.3 % (45.0-75.0) Lymphocytes (%) (Auto) 21.9 % (20.0-45.0) Monocytes (%) (Auto) 9.4 % (1.0-10.0) Eosinophils (%) (Auto) 5.2 % (0.0-3.0) H Basophils (%) (Auto) 1.2 % (0.0-2.0) Sodium Level 138 MMOL/L (136-145) Potassium Level 4.3 MMOL/L (3.5-5.1) Chloride Level 104 MMOL/L (98-107) Carbon Dioxide Level 27 MMOL/L (21-32) Anion Gap 7 mmol/L (5-15) Blood Urea Nitrogen 22 mg/dL (7-18) H Creatinine 1.1 MG/DL (0.55-1.30) Estimat Glomerular Filtration Rate mL/min (>60) Glucose Level 107 MG/DL (74-106) H Calcium Level 8.9 MG/DL (8.5-10.1) Phosphorus Level 3.4 MG/DL (2.5-4.9) Magnesium Level 2.0 MG/DL (1.8-2.4) Total Bilirubin 0.4 MG/DL (0.2-1.0) Aspartate Amino Transf (AST/SGOT) 14 U/L (15-37) L Alanine Aminotransferase (ALT/SGPT) 12 U/L (12-78) Alkaline Phosphatase 65 U/L (46-116) Pro-B-Type Natriuretic Peptide 1606 pg/mL (0-125) H Total Protein 7.9 G/DL (6.4-8.2) Albumin 3.0 G/DL (3.4-5.0) L Globulin 4.9 g/dL Albumin/Globulin Ratio 0.6 (1.0-2.7) L Microbiology Date/Time Source Procedure Growth Status 09/24/17 23:00 Blood Blood Culture - Preliminary NO GROWTH AFTER 24 HOURS Resulted 09/24/17 22:45 Blood Blood Culture - Preliminary NO GROWTH AFTER 24 HOURS Resulted 09/24/17 19:18 Urine,Clean Catch Urine Culture - Preliminary Gram Negative Bacillus 1 Resulted Charly Krueger MD Sep 26, 2017 18:43
[2017-09-26] MEDS ORDERED: Norco 5mg/325mg tab ORAL PRN (18:45)
--- NOTE | 2017-09-26 18:49 | Diagnostic Imaging Report ---
Indication: Dyspnea Technique: XRAY Chest 1v Comparison: None Findings: Heart size within normal limits. Atherosclerotic calcifications noted in the aorta. There is mild right basilar atelectasis. Otherwise no focal airspace consolidation. No pleural effusion or pneumothorax. There is osteopenia and degenerative change of the spine. Degenerative change of the left shoulder is partially visualized. Impression: Mild right basilar opacities, possibly atelectasis. No pleural effusion or pneumothorax.
[2017-09-26] MEDS ORDERED: Miralax 17gm pkt ORAL PRN (20:00)
[2017-09-26] MEDS ORDERED: Zolpidem 5mg tab ORAL PRN (20:00)
[2017-09-26] MEDS ORDERED: Tamsulosin 0.4mg cap ORAL SCH (21:00)
[2017-09-26 21:55] VITALS: BP 119/66
--- NOTE | 2017-09-26 22:15 | Consultation ---
DATE OF CONSULTATION: 09/26/2017 CARDIOLOGY CONSULTATION CONSULTING PHYSICIAN: Charly Krueger M.D. REFERRING PHYSICIAN: Samir Cramer D.O. REASON FOR CONSULTATION: Nonsustained ventricular tachycardia in the setting of cardiomyopathy. HISTORY OF PRESENT ILLNESS: The patient is a 77-year-old gentleman with history of diabetes and COPD and cachexia, benign prostatic hypertrophy as well as chronic left shoulder dislocation, who was a [place] resident, was admitted with increased difficulty urination, lethargy, and weakness. The patient was also found to have urinary tract infection. While he was on telemetry, he had seven beats of ventricular tachycardia. An echocardiogram was ordered, which showed ejection fraction of only 40% to 45%. A cardiology consultation was then requested for further evaluation and management. At the time of my evaluation, the patient denies any chest pain, palpitation, or shortness of breath, and denies syncope. PAST MEDICAL HISTORY: As mentioned above. FAMILY HISTORY: Noncontributory. 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 He has been drinking alcohol heavily. REVIEW OF SYSTEMS: Review of systems was negative other than what was mentioned in the history of present illness. PHYSICAL EXAMINATION: VITAL SIGNS: Blood pressure is 130/80, pulse 88, respirations 18, and temperature 97.3 degrees. HEAD AND NECK: Shows no JVD. LUNGS: Clear. CARDIOVASCULAR: Regular S1 and S2 with no gallop or murmur. ABDOMEN: Soft. EXTREMITIES: No pitting edema. LABORATORY AND DIAGNOSTIC DATA: Labs show white count of 9, hemoglobin 12.5, hematocrit 38, and platelet count is 418. Sodium 135, potassium 4.3, BUN of 20, creatinine 1.1, and glucose of 107. His first troponin was negative. BNP is 1600. ASSESSMENT AND PLAN: 1. Nonsustained ventricular tachycardia. Echocardiogram shows ejection fraction of 40%. We will transfer the patient back to telemetry. I will start the patient on low-dose beta-nico and add GUILLERMO inhibitor to his medical regimen. We will also completely rule out the myocardial infarction protocol, he has only one negative troponin. 2. Urinary tract infection, on IV antibiotic. 3. Psychosis, on risperidone, under management of Dr. Lea Dodd. Thank you very much, Dr. Cramer, for allowing me to participate in the care of this patient. Please do not hesitate to contact me for any questions regarding my evaluation. Charly Krueger M.D. DR: MARLENA JOB#: [id number] CC:
[2017-09-26] MEDS: Meropenem 1 GM in D5W 110 ML IVPB SCH (22:26)
[2017-09-27] VITALS: BP 104/56
[2017-09-27 04:00] VITALS: BP 113/58
[2017-09-27] MEDS: Meropenem 1 GM in D5W 110 ML IVPB SCH (05:06)
[2017-09-27 07:09] LABS: BASOPHILS % (AUTO) 1.4 % (0.0-2.0); EOSINOPHILS % (AUTO) 6.3 % (0.0-3.0); HEMATOCRIT 39.2 % (42.0-52.0); HEMOGLOBIN 12.8 G/DL (14.2-18.0); LYMPHOCYTES % (AUTO) 19.8 % (20.0-45.0); MEAN CORPUSCULAR VOLUME 83 FL (80-99); MONOCYTES % (AUTO) 10.5 % (1.0-10.0); NEUTROPHILS % (AUTO) 62.1 % (45.0-75.0); PLATELET COUNT 404 K/UL (150-450); RED BLOOD COUNT 4.75 M/UL (4.70-6.10); RED CELL DISTRIBUTION WIDTH 13.9 % (11.6-14.8); WHITE BLOOD COUNT 7.2 K/UL (4.8-10.8)
[2017-09-27 07:17] LABS: ANION GAP 6 mmol/L (5-15); BLOOD UREA NITROGEN 23 mg/dL (7-18); CALCIUM 9.1 MG/DL (8.5-10.1); CARBON DIOXIDE 27 MMOL/L (21-32); CHLORIDE 105 MMOL/L (98-107); CREATININE 1.2 MG/DL (0.55-1.30); SODIUM 138 MMOL/L (136-145)
[2017-09-27 08:00] VITALS: BP 100/53
[2017-09-27] MEDS ORDERED: Lisinopril 10mg tab ORAL SCH (09:00)
[2017-09-27] MEDS: Memantine 5 MG TAB ORAL SCH ×2 (09:15→17:05)
--- NOTE | 2017-09-27 11:54 | Pulmonology Progress Note ---
Assessment/Plan Problems: (1) MDRO (multiple drug resistant organisms) resistance (2) Urinary tract infection (3) COPD (chronic obstructive pulmonary disease) (4) Chronic heel ulcer (5) BPH (benign prostatic hyperplasia) (6) Severe protein-calorie malnutrition Assessment/Plan improving respiratory treatment continue abx check cultures check electrolytes wound care dvt prophylaxis Subjective ROS Limited/Unobtainable: No Constitutional: Reports: no symptoms HEENT: Repors: no symptoms Respiratory: Reports: no symptoms Allergies: Coded Allergies: No Known Allergies (Unverified , 07/19/17) Objective Last 24 Hour Vital Signs Date Time Temp Pulse Resp B/P (MAP) Pulse Ox O2 Delivery O2 Flow Rate FiO2 09/27/17 09:00 100/53 09/27/17 09:00 71 100/53 09/27/17 08:00 98.1 71 20 100/53 98 Room Air 98.1 09/27/17 04:00 77 09/27/17 04:00 97.4 80 16 113/58 95 Room Air 97.4 09/27/17 00:46 47 09/27/17 00:00 97.4 49 16 104/56 95 Room Air 97.4 09/26/17 21:55 97.3 80 16 119/66 95 Room Air 97.3 09/26/17 21:27 84 139/66 09/26/17 16:00 97.3 88 18 130/80 95 Room Air 97.3 09/26/17 12:00 87 09/26/17 12:00 97.9 78 18 115/68 96 Room Air 97.9 Intake and Output 09/26/17 09/27/17 19:00 07:00 Intake Total 800 ml Balance 800 ml Intake Oral 800 ml # Voids 5 # Bowel Movements 1 General Appearance: WD/WN HEENT: normocephalic, anicteric Respiratory/Chest: chest wall non-tender, lungs clear Cardiovascular: normal peripheral pulses, normal rate Abdomen: normal bowel sounds, soft, non tender Genitourinary: normal external genitalia 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 Complete 09/24/17 19:18 Urine,Clean Catch Urine Culture - Final Providencia Stuartii Complete 09/25/17 11:36 Rectum VRE Culture - Final Enterococcus Faecalis - Vre Complete Laboratory Tests 09/27/17 06:15: White Blood Count 7.2, Red Blood Count 4.75, Hemoglobin 12.8L, Hematocrit 39.2L , Mean Corpuscular Volume 83, Mean Corpuscular Hemoglobin 27.0, Mean Corpuscular Hemoglobin Concent 32.7, Red Cell Distribution Width 13.9, Platelet Count 404, Mean Platelet Volume 6.9, Neutrophils (%) (Auto) 62.1, Lymphocytes (% ) (Auto) 19.8L, Monocytes (%) (Auto) 10.5H, Eosinophils (%) (Auto) 6.3H, Basophils (%) (Auto) 1.4, Sodium Level 138, Potassium Level 4.0, Chloride Level 105, Carbon Dioxide Level 27, Anion Gap 6, Blood Urea Nitrogen 23H, Creatinine 1.2, Estimat Glomerular Filtration Rate , Glucose Level 109H, Calcium Level 9.1 , Troponin I 0.000 Current Medications Medications (Trade) Dose Ordered Sig/Nicole Route PRN Reason Start Time Stop Time Status Last Admin Dose Admin Acetaminophen (Tylenol) 650 mg Q4H PRN ORAL fever (temp>100.5F) 09/27/17 14:45 10/24/17 22:44 Acetaminophen/ Hydrocodone Bitart ([place] 5/325) 1 tab Q4H PRN ORAL Moderate Pain (Pain Scale 4-6) 09/27/17 12:00 10/01/17 11:59 Al Hydroxide/Mg Hydroxide (Mylanta II) 30 ml Q6H PRN ORAL dyspepsia 09/27/17 12:00 10/24/17 17:59 Carvedilol (Coreg) 3.125 mg EVERY 12 HOURS ORAL 09/27/17 21:00 10/26/17 20:59 Dextrose (Dextrose 50%) 25 ml STAT PRN IV Hypoglycemia 09/27/17 22:45 10/24/17 22:44 Dextrose (Dextrose 50%) 50 ml STAT PRN IV Hypoglycemia 09/27/17 18:00 10/26/17 17:59 Lisinopril (Zestril) 10 mg DAILY ORAL 09/28/17 09:00 10/27/17 08:59 UNV Lorazepam (Ativan 2mg/ml 1ml) 0.5 mg Q4H PRN IV For Anxiety 09/27/17 14:00 10/01/17 17:59 UNV Memantine (Namenda) 5 mg BID ORAL 09/27/17 18:00 10/26/17 17:59 UNV Meropenem 1 gm/ Dextrose 110 ml @ 220 mls/hr Q8HR IVPB 09/27/17 14:00 10/01/17 13:59 UNV Morphine Sulfate (Morphine Sulfate) 1 mg Q4H PRN IVP Severe Pain (Pain Scale 7-10) 09/27/17 14:00 10/02/17 17:59 UNV Ondansetron HCl (Zofran) 4 mg Q6H PRN IVP Nausea & Vomiting 09/27/17 12:00 10/24/17 17:59 UNV Polyethylene Glycol (Miralax) 17 gm HSPRN PRN ORAL Constipation 09/27/17 20:00 10/24/17 19:59 UNV Risperidone (RisperDAL) 0.25 mg BID ORAL 09/27/17 18:00 10/26/17 17:59 UNV Risperidone (RisperDAL) 1 mg DAILY ORAL 09/28/17 09:00 10/27/17 08:59 UNV Tamsulosin HCl (Flomax) 0.4 mg BEDTIME ORAL 09/27/17 21:00 10/25/17 20:59 UNV Zolpidem Tartrate (Ambien) 5 mg HSPRN PRN ORAL Insomnia 09/27/17 20:00 10/01/17 19:59 UNV Margie Britton MD Sep 27, 2017 11:54
[2017-09-27 12:00] VITALS: BP 118/53
[2017-09-27] MEDS ORDERED: Norco 5mg/325mg tab ORAL PRN (12:00)
[2017-09-27] MEDS ORDERED: LORazepam Inj 2mg/ml 1ml IV PRN (12:00)
[2017-09-27] MEDS ORDERED: Mylanta II UD 30ml ORAL PRN (12:00)
--- NOTE | 2017-09-27 12:20 | Infectious Diseases Prog Note ---
Assessment/Plan Assessment/Plan Abx: Keflex x1 09/24 Ertapenem x1 09/24 Assessment: Possible UTI (+difficulty urination, leukocytosis) -u/a wbc 30-40, nit neg, leuk +3; ucx >100K P. stuarti (R Amp, ancef, Genta; I Cipro/levo, Zosyn; CEftriaxone reported as S- however Anthony 8 0 ?resistant), S. 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 Will continue to follow along with you. Discussed with RN Subjective Allergies: Coded Allergies: No Known Allergies (Unverified , 07/19/17) Subjective afebrile no leukocytosis Objective Vital Signs Last 24 Hour Vital Signs Date Time Temp Pulse Resp B/P (MAP) Pulse Ox O2 Delivery O2 Flow Rate FiO2 09/27/17 09:00 100/53 09/27/17 09:00 71 100/53 09/27/17 08:00 98.1 71 20 100/53 98 Room Air 98.1 09/27/17 04:00 77 09/27/17 04:00 97.4 80 16 113/58 95 Room Air 97.4 09/27/17 00:46 47 09/27/17 00:00 97.4 49 16 104/56 95 Room Air 97.4 09/26/17 21:55 97.3 80 16 119/66 95 Room Air 97.3 09/26/17 21:27 84 139/66 09/26/17 16:00 97.3 88 18 130/80 95 Room Air 97.3 Height (Feet): 5 Height (Inches): 11.00 Weight (Pounds): 145 Objective GENERAL: Calm in bed, oriented x2, in no acute distress.. CARDIOVASCULAR: No murmurs. LUNGS: Distant and clear. ABDOMEN: Bowels sound positive. Nontender. Nondistended. EXTREMITIES: Show no cyanosis, clubbing, or edema. NEUROLOGIC: The patient moves all extremities. Slightly weak. Microbiology Date/Time Source Procedure Growth Status 09/24/17 23:00 Blood Blood Culture - Preliminary NO GROWTH AFTER 48 HOURS Resulted 09/24/17 22:45 Blood Blood Culture - Preliminary NO GROWTH AFTER 48 HOURS Resulted 09/25/17 11:36 Nasal Nares MRSA Culture - Final NO METHICILLIN RESISTANT STAPH AUREUS... Complete 09/24/17 19:18 Urine,Clean Catch Urine Culture - Final Providencia Stuartii Complete 09/25/17 11:36 Rectum VRE Culture - Final Enterococcus Faecalis - Vre Complete Laboratory Tests Test 09/27/17 06:15 White Blood Count 7.2 K/UL (4.8-10.8) Red Blood Count 4.75 M/UL (4.70-6.10) Hemoglobin 12.8 G/DL (14.2-18.0) L Hematocrit 39.2 % (42.0-52.0) L Mean Corpuscular Volume 83 FL (80-99) Mean Corpuscular Hemoglobin 27.0 PG (27.0-31.0) Mean Corpuscular Hemoglobin Concent 32.7 G/DL (32.0-36.0) Red Cell Distribution Width 13.9 % (11.6-14.8) Platelet Count 404 K/UL (150-450) Mean Platelet Volume 6.9 FL (6.5-10.1) Neutrophils (%) (Auto) 62.1 % (45.0-75.0) Lymphocytes (%) (Auto) 19.8 % (20.0-45.0) L Monocytes (%) (Auto) 10.5 % (1.0-10.0) H Eosinophils (%) (Auto) 6.3 % (0.0-3.0) H Basophils (%) (Auto) 1.4 % (0.0-2.0) Sodium Level 138 MMOL/L (136-145) Potassium Level 4.0 MMOL/L (3.5-5.1) Chloride Level 105 MMOL/L (98-107) Carbon Dioxide Level 27 MMOL/L (21-32) Anion Gap 6 mmol/L (5-15) Blood Urea Nitrogen 23 mg/dL (7-18) H Creatinine 1.2 MG/DL (0.55-1.30) Estimat Glomerular Filtration Rate mL/min (>60) Glucose Level 109 MG/DL (74-106) H Calcium Level 9.1 MG/DL (8.5-10.1) Troponin I 0.000 ng/mL (0.000-0.056) Current Medications Medications (Trade) Dose Ordered Sig/Nicole Route PRN Reason Start Time Stop Time Status Last Admin Dose Admin Acetaminophen (Tylenol) 650 mg Q4H PRN ORAL fever (temp>100.5F) 09/27/17 14:45 10/24/17 22:44 Acetaminophen/ Hydrocodone Bitart ([place] 5/325) 1 tab Q4H PRN ORAL Moderate Pain (Pain Scale 4-6) 09/27/17 12:00 10/01/17 11:59 Al Hydroxide/Mg Hydroxide (Mylanta II) 30 ml Q6H PRN ORAL dyspepsia 09/27/17 12:00 10/24/17 17:59 Carvedilol (Coreg) 3.125 mg EVERY 12 HOURS ORAL 09/27/17 21:00 10/26/17 20:59 Dextrose (Dextrose 50%) 25 ml STAT PRN IV Hypoglycemia 09/27/17 22:45 10/24/17 22:44 Dextrose (Dextrose 50%) 50 ml STAT PRN IV Hypoglycemia 09/27/17 18:00 10/26/17 17:59 Lisinopril (Zestril) 10 mg DAILY ORAL 09/28/17 09:00 10/27/17 08:59 Lorazepam (Ativan 2mg/ml 1ml) 0.5 mg Q4H PRN IV For Anxiety 09/27/17 12:00 10/01/17 11:59 Memantine (Namenda) 5 mg BID ORAL 09/27/17 18:00 10/26/17 17:59 Meropenem 1 gm/ Dextrose 110 ml @ 220 mls/hr Q8HR IVPB 09/27/17 14:00 10/01/17 13:59 Morphine Sulfate (Morphine Sulfate) 1 mg Q4H PRN IVP Severe Pain (Pain Scale 7-10) 09/27/17 14:00 10/02/17 17:59 Ondansetron HCl (Zofran) 4 mg Q6H PRN IVP Nausea & Vomiting 09/27/17 12:00 10/24/17 17:59 Polyethylene Glycol (Miralax) 17 gm HSPRN PRN ORAL Constipation 09/27/17 20:00 10/24/17 19:59 Risperidone (RisperDAL) 0.25 mg BID ORAL 09/27/17 18:00 10/26/17 17:59 Risperidone (RisperDAL) 1 mg DAILY ORAL 09/28/17 09:00 10/27/17 08:59 Tamsulosin HCl (Flomax) 0.4 mg BEDTIME ORAL 09/27/17 21:00 10/25/17 20:59 Zolpidem Tartrate (Ambien) 5 mg HSPRN PRN ORAL Insomnia 09/27/17 20:00 10/01/17 19:59 Radha Barron M.D. Sep 27, 2017 12:20
[2017-09-27] MEDS: Ertapenem 1 GM in NS 55 ML IVPB SCH (13:42)
[2017-09-27] MEDS ORDERED: Morphine Sulfate 2mg/ml Inj IVP PRN (14:00)
[2017-09-27] MEDS ORDERED: Meropenem 1 GM in D5W 110 ML IVPB SCH (14:00)
--- NOTE | 2017-09-27 14:49 | General Progress Note ---
Assessment/Plan Problem List: (1) Decubitus ulcer, heel, left, unstageable ICD Codes: L89.620 - Pressure ulcer of left heel, unstageable SNOMED: 130890553 (2) Decubitus ulcer of right heel, unstageable ICD Codes: L89.610 - Pressure ulcer of right heel, unstageable SNOMED: 454299678 (3) Weak ICD Codes: R53.1 - Weakness SNOMED: 48977061 (4) Urinary tract infection ICD Codes: N39.0 - Urinary tract infection, site not specified SNOMED: 37839026 (5) Anemia ICD Codes: D64.9 - Anemia, unspecified SNOMED: 350498944 (6) Chronic heel ulcer ICD Codes: L97.409 - Non-pressure chronic ulcer of unspecified heel and midfoot with unspecified severity SNOMED: 27128933859876605 (7) Cachexia ICD Codes: R64 - Cachexia SNOMED: 361518593 (8) Sepsis ICD Codes: A41.9 - Sepsis, unspecified organism SNOMED: 97403686 Status: stable, progressing Assessment/Plan ot pt diet wound care cbc bmp am dc plan Subjective Constitutional: Reports: weakness Allergies: Coded Allergies: No Known Allergies (Unverified , 07/19/17) All Systems: reviewed and negative except above Subjective calm in bed sleepy Objective Last 24 Hour Vital Signs Date Time Temp Pulse Resp B/P (MAP) Pulse Ox O2 Delivery O2 Flow Rate FiO2 09/27/17 12:00 97 09/27/17 12:00 97.5 79 20 118/53 95 Room Air 97.5 09/27/17 09:00 100/53 09/27/17 09:00 71 100/53 09/27/17 08:00 98.1 71 20 100/53 98 Room Air 98.1 09/27/17 08:00 48 09/27/17 04:00 77 09/27/17 04:00 97.4 80 16 113/58 95 Room Air 97.4 09/27/17 00:46 47 09/27/17 00:00 97.4 49 16 104/56 95 Room Air 97.4 09/26/17 21:55 97.3 80 16 119/66 95 Room Air 97.3 09/26/17 21:27 84 139/66 09/26/17 16:00 97.3 88 18 130/80 95 Room Air 97.3 Intake and Output 09/26/17 09/27/17 19:00 07:00 Intake Total 800 ml Balance 800 ml Intake Oral 800 ml # Voids 5 # Bowel Movements 1 Laboratory Tests 09/27/17 06:15: White Blood Count 7.2, Red Blood Count 4.75, Hemoglobin 12.8L, Hematocrit 39.2L , Mean Corpuscular Volume 83, Mean Corpuscular Hemoglobin 27.0, Mean Corpuscular Hemoglobin Concent 32.7, Red Cell Distribution Width 13.9, Platelet Count 404, Mean Platelet Volume 6.9, Neutrophils (%) (Auto) 62.1, Lymphocytes (% ) (Auto) 19.8L, Monocytes (%) (Auto) 10.5H, Eosinophils (%) (Auto) 6.3H, Basophils (%) (Auto) 1.4, Sodium Level 138, Potassium Level 4.0, Chloride Level 105, Carbon Dioxide Level 27, Anion Gap 6, Blood Urea Nitrogen 23H, Creatinine 1.2, Estimat Glomerular Filtration Rate , Glucose Level 109H, Calcium Level 9.1 , Troponin I 0.000 Height (Feet): 5 Height (Inches): 11.00 Weight (Pounds): 145 General Appearance: lethargic EENT: normal ENT inspection Neck: normal alignment Cardiovascular: normal peripheral pulses, normal rate, regular rhythm Respiratory/Chest: chest wall non-tender, lungs clear, normal breath sounds Abdomen: normal bowel sounds, non tender, soft Extremities: normal inspection Edema: no edema noted Arm (L), no edema noted Arm (R), no edema noted Leg (L), no edema noted Leg (R), no edema noted Pedal (L), no edema noted Pedal (R), no edema noted Generalized Neurologic: motor weakness Skin: normal pigmentation, warm/dry Samir Cramer DO Sep 27, 2017 14:49
[2017-09-27 16:00] VITALS: BP 121/52
--- NOTE | 2017-09-27 16:56 | Cardiac Electrophysiology PN ---
Assessment/Plan Assessment/Plan 1. Nonsustained ventricular tachycardia 7 beats. Likely due to CMP 2. Cardiomyopathy with Echocardiogram with EF 40%. On Coreg and Lisinopril. No further VT. No Syncope. 3. Urinary tract infection, on IV antibiotic. 4. Psychosis, on risperidone, under management of Dr. Lea Dodd. HANK RN Subjective Subjective Feeling better.No CP or SOB. No VT overnight Objective Last 24 Hour Vital Signs Date Time Temp Pulse Resp B/P (MAP) Pulse Ox O2 Delivery O2 Flow Rate FiO2 09/27/17 16:00 97.5 98 20 121/52 96 Room Air 97.5 09/27/17 12:00 97 09/27/17 12:00 97.5 79 20 118/53 95 Room Air 97.5 09/27/17 09:00 100/53 09/27/17 09:00 71 100/53 09/27/17 08:00 98.1 71 20 100/53 98 Room Air 98.1 09/27/17 08:00 48 09/27/17 04:00 77 09/27/17 04:00 97.4 80 16 113/58 95 Room Air 97.4 09/27/17 00:46 47 09/27/17 00:00 97.4 49 16 104/56 95 Room Air 97.4 09/26/17 21:55 97.3 80 16 119/66 95 Room Air 97.3 09/26/17 21:27 84 139/66 Intake and Output 09/26/17 09/27/17 19:00 07:00 Intake Total 800 ml Balance 800 ml Intake Oral 800 ml # Voids 5 # Bowel Movements 1 Laboratory Tests Test 09/27/17 06:15 White Blood Count 7.2 K/UL (4.8-10.8) Red Blood Count 4.75 M/UL (4.70-6.10) Hemoglobin 12.8 G/DL (14.2-18.0) L Hematocrit 39.2 % (42.0-52.0) L Mean Corpuscular Volume 83 FL (80-99) Mean Corpuscular Hemoglobin 27.0 PG (27.0-31.0) Mean Corpuscular Hemoglobin Concent 32.7 G/DL (32.0-36.0) Red Cell Distribution Width 13.9 % (11.6-14.8) Platelet Count 404 K/UL (150-450) Mean Platelet Volume 6.9 FL (6.5-10.1) Neutrophils (%) (Auto) 62.1 % (45.0-75.0) Lymphocytes (%) (Auto) 19.8 % (20.0-45.0) L Monocytes (%) (Auto) 10.5 % (1.0-10.0) H Eosinophils (%) (Auto) 6.3 % (0.0-3.0) H Basophils (%) (Auto) 1.4 % (0.0-2.0) Sodium Level 138 MMOL/L (136-145) Potassium Level 4.0 MMOL/L (3.5-5.1) Chloride Level 105 MMOL/L (98-107) Carbon Dioxide Level 27 MMOL/L (21-32) Anion Gap 6 mmol/L (5-15) Blood Urea Nitrogen 23 mg/dL (7-18) H Creatinine 1.2 MG/DL (0.55-1.30) Estimat Glomerular Filtration Rate mL/min (>60) Glucose Level 109 MG/DL (74-106) H Calcium Level 9.1 MG/DL (8.5-10.1) Troponin I 0.000 ng/mL (0.000-0.056) Microbiology Date/Time Source Procedure Growth Status 09/24/17 23:00 Blood Blood Culture - Preliminary NO GROWTH AFTER 48 HOURS Resulted 09/24/17 22:45 Blood Blood Culture - Preliminary NO GROWTH AFTER 48 HOURS Resulted 09/25/17 11:36 Nasal Nares MRSA Culture - Final NO METHICILLIN RESISTANT STAPH AUREUS... Complete 09/24/17 19:18 Urine,Clean Catch Urine Culture - Final Providencia Stuartii Complete 09/25/17 11:36 Rectum VRE Culture - Final Enterococcus Faecalis - Vre Complete Objective HEAD AND NECK: Shows no JVD. LUNGS: Clear. CARDIOVASCULAR: Regular S1 and S2 with no gallop or murmur. ABDOMEN: Soft. EXTREMITIES: No pitting edema. Charly Krueger MD Sep 27, 2017 16:55
[2017-09-27 20:00] VITALS: BP 131/71
[2017-09-27] MEDS ORDERED: Zolpidem 5mg tab ORAL PRN (20:00)
[2017-09-27] MEDS ORDERED: Miralax 17gm pkt ORAL PRN (20:00)
[2017-09-27] MEDS: Tamsulosin 0.4mg cap ORAL SCH (20:31)
[2017-09-28] VITALS: BP 124/58
[2017-09-28 04:00] VITALS: BP 117/72
[2017-09-28 07:47] LABS: BASOPHILS % (AUTO) 1.5 % (0.0-2.0); EOSINOPHILS % (AUTO) 6.9 % (0.0-3.0); HEMATOCRIT 37.2 % (42.0-52.0); HEMOGLOBIN 12.3 G/DL (14.2-18.0); LYMPHOCYTES % (AUTO) 20.8 % (20.0-45.0); MEAN CORPUSCULAR VOLUME 82 FL (80-99); NEUTROPHILS % (AUTO) 59.8 % (45.0-75.0); PLATELET COUNT 401 K/UL (150-450); RED BLOOD COUNT 4.54 M/UL (4.70-6.10); RED CELL DISTRIBUTION WIDTH 13.6 % (11.6-14.8)
[2017-09-28 08:00] VITALS: BP 129/44
[2017-09-28 08:03] LABS: ALANINE AMINOTRANSFERASE 10 U/L (12-78); ALBUMIN 2.8 G/DL (3.4-5.0); ALBUMIN/GLOBULIN RATIO 0.6 (1.0-2.7); ALKALINE PHOSPHATASE 65 U/L (46-116); ANION GAP 7 mmol/L (5-15); ASPARTATE AMINO TRANSFERASE 9 U/L (15-37); BILIRUBIN,TOTAL 0.3 MG/DL (0.2-1.0); BLOOD UREA NITROGEN 24 mg/dL (7-18); CALCIUM 8.9 MG/DL (8.5-10.1); CARBON DIOXIDE 28 MMOL/L (21-32); CHLORIDE 105 MMOL/L (98-107); CREATININE 1.1 MG/DL (0.55-1.30); POTASSIUM 4.2 MMOL/L (3.5-5.1); SODIUM 140 MMOL/L (136-145)
[2017-09-28] MEDS: Memantine 5 MG TAB ORAL SCH ×2 (08:29→17:09)
[2017-09-28] MEDS: Lisinopril 10mg tab ORAL SCH (08:34)
--- NOTE | 2017-09-28 09:45 | Progress Note ---
DATE: 09/28/2017 SUBJECTIVE: The patient is a 77-year-old male with sepsis, altered mental status, confusion consultation. MENTAL STATUS EXAMINATION: This is a 77-year-old male. He has auditory hallucinations and delusions . Insight and judgment is poor. DIAGNOSIS: Major depression with psychotic features. PLAN: Continue titrating up on his medications. Provided 18 to 20 minutes of supportive psychotherapy and cognitive behavioral therapy for appropriate behavior. Chart reviewed. Discussed with staff. Lea Dodd M.D. DR: Radha JOB#: [id number] CC:
--- NOTE | 2017-09-28 10:15 | Progress Note ---
DATE: 09/27/2017 SUBJECTIVE: This is a 77-year-old male patient with sepsis and urinary tract infection. The patient is still very confused and disorganized with mood lability. He has no logical plan for his own self-care, but overall 00:21 agitation, and irritability. Therefore, his attending has requested daily psychiatric consultation. MENTAL STATUS EVALUATION: This is a 77-year-old male. He is disheveled and agitated. Affect is guarded and restricted. Intellect poor. Mood depressed. Motor activity, psychomotor agitation. Mood is depressed. Affect is poor. Speech is pressured. Thought process, disorganized and illogical. Thought content, auditory hallucinations and paranoid delusions. Insight and judgment is poor. DIAGNOSIS: Major depression with psychotic features. PLAN: Continue treatment with 00:50. An 18 to 20 minutes of supportive psychotherapy provided. Chart reviewed and discussed with staff. Seen ad assessed at bedside. Lea Dodd M.D. DR: CLARENCE JOB#: [id number] CC:
--- NOTE | 2017-09-28 11:29 | Pulmonology Progress Note ---
Assessment/Plan Problems: (1) COPD (chronic obstructive pulmonary disease) (2) MDRO (multiple drug resistant organisms) resistance (3) BPH (benign prostatic hyperplasia) (4) Arrhythmia (5) Severe protein-calorie malnutrition (6) Chronic heel ulcer (7) Urinary tract infection Assessment/Plan doing better no new complainsimproving respiratory treatment continue abx check cultures check electrolytes wound care dvt prophylaxis Subjective ROS Limited/Unobtainable: No Interval Events: episodes of sinus tach and roni, Allergies: Coded Allergies: No Known Allergies (Unverified , 07/19/17) Objective Last 24 Hour Vital Signs Date Time Temp Pulse Resp B/P (MAP) Pulse Ox O2 Delivery O2 Flow Rate FiO2 09/28/17 08:34 129/44 09/28/17 08:33 92 129/44 09/28/17 08:00 97.3 91 20 129/44 96 Room Air 97.3 09/28/17 04:00 83 09/28/17 04:00 97.6 93 18 117/72 99 Room Air 97.6 09/28/17 00:00 97.4 58 16 124/58 94 Room Air 97.4 09/28/17 00:00 90 09/27/17 20:31 92 131/71 09/27/17 20:00 94 09/27/17 20:00 97.7 92 16 131/71 97 Room Air 97.7 09/27/17 16:00 97.5 98 20 121/52 96 Room Air 97.5 09/27/17 16:00 123 09/27/17 12:00 97 09/27/17 12:00 97.5 79 20 118/53 95 Room Air 97.5 Intake and Output 09/27/17 09/28/17 19:00 07:00 Intake Total 55 ml Balance 55 ml IV Total 55 ml # Voids 5 # Bowel Movements 1 General Appearance: cachetic HEENT: normocephalic, atraumatic Respiratory/Chest: lungs clear Cardiovascular: normal peripheral pulses, regular rhythm Abdomen: normal bowel sounds, soft, non tender Microbiology Date/Time Source Procedure Growth Status 09/25/17 11:36 Nasal Nares MRSA Culture - Final NO METHICILLIN RESISTANT STAPH AUREUS... Complete 09/25/17 11:36 Rectum VRE Culture - Final Enterococcus Faecalis - Vre Complete Laboratory Tests 09/28/17 07:25: White Blood Count 7.0, Red Blood Count 4.54L, Hemoglobin 12.3L, Hematocrit 37.2L , Mean Corpuscular Volume 82, Mean Corpuscular Hemoglobin 27.1, Mean Corpuscular Hemoglobin Concent 33.1, Red Cell Distribution Width 13.6, Platelet Count 401, Mean Platelet Volume 6.6, Neutrophils (%) (Auto) 59.8, Lymphocytes (% ) (Auto) 20.8, Monocytes (%) (Auto) 11.0H, Eosinophils (%) (Auto) 6.9H, Basophils (%) (Auto) 1.5, Sodium Level 140, Potassium Level 4.2, Chloride Level 105, Carbon Dioxide Level 28, Anion Gap 7, Blood Urea Nitrogen 24H, Creatinine 1.1, Estimat Glomerular Filtration Rate , Glucose Level 104, Calcium Level 8.9, Phosphorus Level 3.0, Magnesium Level 2.0, Total Bilirubin 0.3, Aspartate Amino Transf (AST/SGOT) 9L, Alanine Aminotransferase (ALT/SGPT) 10L, Alkaline Phosphatase 65, Total Protein 7.5, Albumin 2.8L, Globulin 4.7, Albumin/Globulin Ratio 0.6L Current Medications Medications (Trade) Dose Ordered Sig/Nicole Route PRN Reason Start Time Stop Time Status Last Admin Dose Admin Acetaminophen (Tylenol) 650 mg Q4H PRN ORAL fever (temp>100.5F) 09/27/17 14:45 10/24/17 22:44 Acetaminophen/ Hydrocodone Bitart ([place] 5/325) 1 tab Q4H PRN ORAL Moderate Pain (Pain Scale 4-6) 09/27/17 12:00 10/01/17 11:59 Al Hydroxide/Mg Hydroxide (Mylanta II) 30 ml Q6H PRN ORAL dyspepsia 09/27/17 12:00 10/24/17 17:59 Carvedilol (Coreg) 3.125 mg EVERY 12 HOURS ORAL 09/27/17 21:00 10/26/17 20:59 09/27/17 20:31 Dextrose (Dextrose 50%) 25 ml STAT PRN IV Hypoglycemia 09/27/17 22:45 10/24/17 22:44 Dextrose (Dextrose 50%) 50 ml STAT PRN IV Hypoglycemia 09/27/17 18:00 10/26/17 17:59 Ertapenem 1 gm/ Sodium Chloride 55 ml @ 110 mls/hr Q24H IVPB 09/27/17 14:00 10/02/17 13:59 09/27/17 13:42 Lisinopril (Zestril) 10 mg DAILY ORAL 09/28/17 09:00 10/27/17 08:59 Lorazepam (Ativan 2mg/ml 1ml) 0.5 mg Q4H PRN IV For Anxiety 09/27/17 12:00 10/01/17 11:59 Memantine (Namenda) 5 mg BID ORAL 09/27/17 18:00 10/26/17 17:59 09/28/17 08:29 Morphine Sulfate (Morphine Sulfate) 1 mg Q4H PRN IVP Severe Pain (Pain Scale 7-10) 09/27/17 14:00 10/02/17 17:59 Ondansetron HCl (Zofran) 4 mg Q6H PRN IVP Nausea & Vomiting 09/27/17 12:00 10/24/17 17:59 Polyethylene Glycol (Miralax) 17 gm HSPRN PRN ORAL Constipation 09/27/17 20:00 10/24/17 19:59 Risperidone (RisperDAL) 0.25 mg BID ORAL 09/27/17 18:00 10/26/17 17:59 09/28/17 08:29 Risperidone (RisperDAL) 1 mg DAILY ORAL 09/28/17 09:00 10/27/17 08:59 09/28/17 08:28 Tamsulosin HCl (Flomax) 0.4 mg BEDTIME ORAL 09/27/17 21:00 10/25/17 20:59 09/27/17 20:31 Zolpidem Tartrate (Ambien) 5 mg HSPRN PRN ORAL Insomnia 09/27/17 20:00 10/01/17 19:59 Margie Britton MD Sep 28, 2017 11:29
[2017-09-28 12:00] VITALS: BP 128/53
[2017-09-28] MEDS: Ertapenem 1 GM in NS 55 ML IVPB SCH (15:00)
--- NOTE | 2017-09-28 15:20 | General Progress Note ---
Assessment/Plan Problem List: (1) Decubitus ulcer, heel, left, unstageable ICD Codes: L89.620 - Pressure ulcer of left heel, unstageable SNOMED: 650994158 (2) Decubitus ulcer of right heel, unstageable ICD Codes: L89.610 - Pressure ulcer of right heel, unstageable SNOMED: 348848254 (3) Weak ICD Codes: R53.1 - Weakness SNOMED: 83697521 (4) Urinary tract infection ICD Codes: N39.0 - Urinary tract infection, site not specified SNOMED: 01659031 (5) Anemia ICD Codes: D64.9 - Anemia, unspecified SNOMED: 605542963 (6) Chronic heel ulcer ICD Codes: L97.409 - Non-pressure chronic ulcer of unspecified heel and midfoot with unspecified severity SNOMED: 69585590208260247 (7) Cachexia ICD Codes: R64 - Cachexia SNOMED: 234262726 (8) Sepsis ICD Codes: A41.9 - Sepsis, unspecified organism SNOMED: 89176896 Status: stable, progressing Assessment/Plan ot pt diet wound care cbc bmp am dc plan Subjective Constitutional: Reports: weakness Allergies: Coded Allergies: No Known Allergies (Unverified , 07/19/17) All Systems: reviewed and negative except above Subjective calm in bed sleepy Objective Last 24 Hour Vital Signs Date Time Temp Pulse Resp B/P (MAP) Pulse Ox O2 Delivery O2 Flow Rate FiO2 09/28/17 12:00 97.2 80 20 128/53 95 Room Air 97.2 09/28/17 12:00 97 09/28/17 08:34 129/44 09/28/17 08:33 92 129/44 09/28/17 08:00 97.3 91 20 129/44 96 Room Air 97.3 09/28/17 08:00 81 09/28/17 04:00 83 09/28/17 04:00 97.6 93 18 117/72 99 Room Air 97.6 09/28/17 00:00 97.4 58 16 124/58 94 Room Air 97.4 09/28/17 00:00 90 09/27/17 20:31 92 131/71 09/27/17 20:00 94 09/27/17 20:00 97.7 92 16 131/71 97 Room Air 97.7 09/27/17 16:00 97.5 98 20 121/52 96 Room Air 97.5 09/27/17 16:00 123 Intake and Output 09/27/17 09/28/17 19:00 07:00 Intake Total 55 ml Balance 55 ml IV Total 55 ml # Voids 5 # Bowel Movements 1 Laboratory Tests 09/28/17 07:25: White Blood Count 7.0, Red Blood Count 4.54L, Hemoglobin 12.3L, Hematocrit 37.2L , Mean Corpuscular Volume 82, Mean Corpuscular Hemoglobin 27.1, Mean Corpuscular Hemoglobin Concent 33.1, Red Cell Distribution Width 13.6, Platelet Count 401, Mean Platelet Volume 6.6, Neutrophils (%) (Auto) 59.8, Lymphocytes (% ) (Auto) 20.8, Monocytes (%) (Auto) 11.0H, Eosinophils (%) (Auto) 6.9H, Basophils (%) (Auto) 1.5, Sodium Level 140, Potassium Level 4.2, Chloride Level 105, Carbon Dioxide Level 28, Anion Gap 7, Blood Urea Nitrogen 24H, Creatinine 1.1, Estimat Glomerular Filtration Rate , Glucose Level 104, Calcium Level 8.9, Phosphorus Level 3.0, Magnesium Level 2.0, Total Bilirubin 0.3, Aspartate Amino Transf (AST/SGOT) 9L, Alanine Aminotransferase (ALT/SGPT) 10L, Alkaline Phosphatase 65, Total Protein 7.5, Albumin 2.8L, Globulin 4.7, Albumin/Globulin Ratio 0.6L Height (Feet): 5 Height (Inches): 11.00 Weight (Pounds): 132 General Appearance: lethargic EENT: normal ENT inspection Neck: normal alignment Cardiovascular: normal peripheral pulses, normal rate, regular rhythm Respiratory/Chest: chest wall non-tender, lungs clear, normal breath sounds Abdomen: normal bowel sounds, non tender, soft Extremities: normal inspection Edema: no edema noted Arm (L), no edema noted Arm (R), no edema noted Leg (L), no edema noted Leg (R), no edema noted Pedal (L), no edema noted Pedal (R), no edema noted Generalized Neurologic: responsive, motor weakness Skin: normal pigmentation, warm/dry Samir Cramer DO Sep 28, 2017 15:20
[2017-09-28 16:00] VITALS: BP 125/67
--- NOTE | 2017-09-28 16:07 | Cardiac Electrophysiology PN ---
Assessment/Plan Assessment/Plan 1. Nonsustained ventricular tachycardia 7 beats. Likely due to CMP 2. Cardiomyopathy with EF 40%. On Coreg and Lisinopril. No further VT. No Syncope. 3. Urinary tract infection, on IV antibiotic. 4. Psychosis, on risperidone, under management of Dr. Lea Dodd. HANK RN Subjective Subjective Comfortable in NAD. No CP or SOB. No arrhythmias overnight Objective Last 24 Hour Vital Signs Date Time Temp Pulse Resp B/P (MAP) Pulse Ox O2 Delivery O2 Flow Rate FiO2 09/28/17 16:00 97.7 86 20 125/67 95 Room Air 97.7 09/28/17 12:00 97.2 80 20 128/53 95 Room Air 97.2 09/28/17 12:00 97 09/28/17 08:34 129/44 09/28/17 08:33 92 129/44 09/28/17 08:00 97.3 91 20 129/44 96 Room Air 97.3 09/28/17 08:00 81 09/28/17 04:00 83 09/28/17 04:00 97.6 93 18 117/72 99 Room Air 97.6 09/28/17 00:00 97.4 58 16 124/58 94 Room Air 97.4 09/28/17 00:00 90 09/27/17 20:31 92 131/71 09/27/17 20:00 94 09/27/17 20:00 97.7 92 16 131/71 97 Room Air 97.7 Intake and Output 09/27/17 09/28/17 19:00 07:00 Intake Total 55 ml Balance 55 ml IV Total 55 ml # Voids 5 # Bowel Movements 1 Laboratory Tests Test 09/28/17 07:25 White Blood Count 7.0 K/UL (4.8-10.8) Red Blood Count 4.54 M/UL (4.70-6.10) L Hemoglobin 12.3 G/DL (14.2-18.0) L Hematocrit 37.2 % (42.0-52.0) L Mean Corpuscular Volume 82 FL (80-99) Mean Corpuscular Hemoglobin 27.1 PG (27.0-31.0) Mean Corpuscular Hemoglobin Concent 33.1 G/DL (32.0-36.0) Red Cell Distribution Width 13.6 % (11.6-14.8) Platelet Count 401 K/UL (150-450) Mean Platelet Volume 6.6 FL (6.5-10.1) Neutrophils (%) (Auto) 59.8 % (45.0-75.0) Lymphocytes (%) (Auto) 20.8 % (20.0-45.0) Monocytes (%) (Auto) 11.0 % (1.0-10.0) H Eosinophils (%) (Auto) 6.9 % (0.0-3.0) H Basophils (%) (Auto) 1.5 % (0.0-2.0) Sodium Level 140 MMOL/L (136-145) Potassium Level 4.2 MMOL/L (3.5-5.1) Chloride Level 105 MMOL/L (98-107) Carbon Dioxide Level 28 MMOL/L (21-32) Anion Gap 7 mmol/L (5-15) Blood Urea Nitrogen 24 mg/dL (7-18) H Creatinine 1.1 MG/DL (0.55-1.30) Estimat Glomerular Filtration Rate mL/min (>60) Glucose Level 104 MG/DL (74-106) Calcium Level 8.9 MG/DL (8.5-10.1) Phosphorus Level 3.0 MG/DL (2.5-4.9) Magnesium Level 2.0 MG/DL (1.8-2.4) Total Bilirubin 0.3 MG/DL (0.2-1.0) Aspartate Amino Transf (AST/SGOT) 9 U/L (15-37) L Alanine Aminotransferase (ALT/SGPT) 10 U/L (12-78) L Alkaline Phosphatase 65 U/L (46-116) Total Protein 7.5 G/DL (6.4-8.2) Albumin 2.8 G/DL (3.4-5.0) L Globulin 4.7 g/dL Albumin/Globulin Ratio 0.6 (1.0-2.7) L Objective HEAD AND NECK: Shows no JVD. LUNGS: Clear. CARDIOVASCULAR: Regular S1 and S2 with no gallop or murmur. ABDOMEN: Soft. EXTREMITIES: No pitting edema. Charly Krueger MD Sep 28, 2017 16:07
--- NOTE | 2017-09-28 16:09 | Infectious Diseases Prog Note ---
Assessment/Plan Assessment/Plan Abx: Keflex x1 09/24 Ertapenem x1 09/24 Assessment: Possible UTI (+difficulty urination, leukocytosis) -u/a wbc 30-40, nit neg, leuk +3; ucx >100K P. stuarti (R Amp, ancef, Genta; I Cipro/levo, Zosyn; CEftriaxone reported as S- however Anthony 8 0 ?resistant), S. 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 -09/27 SP Meropenem #2 -09/24 SP Keflex and Ertapenem x1 -f/u cx -Monitor CBC/CMP, temperatures -aspiration -wound care per hosp protocol Thank you for this consultation. Will continue to follow along with you. Discussed with RN Subjective Allergies: Coded Allergies: No Known Allergies (Unverified , 07/19/17) Subjective afebrile no leukocytosis for discharge Objective Vital Signs Last 24 Hour Vital Signs Date Time Temp Pulse Resp B/P (MAP) Pulse Ox O2 Delivery O2 Flow Rate FiO2 09/28/17 12:00 97.2 80 20 128/53 95 Room Air 97.2 09/28/17 12:00 97 09/28/17 08:34 129/44 09/28/17 08:33 92 129/44 09/28/17 08:00 97.3 91 20 129/44 96 Room Air 97.3 09/28/17 08:00 81 09/28/17 04:00 83 09/28/17 04:00 97.6 93 18 117/72 99 Room Air 97.6 09/28/17 00:00 97.4 58 16 124/58 94 Room Air 97.4 09/28/17 00:00 90 09/27/17 20:31 92 131/71 09/27/17 20:00 94 09/27/17 20:00 97.7 92 16 131/71 97 Room Air 97.7 Height (Feet): 5 Height (Inches): 11.00 Weight (Pounds): 132 Objective GENERAL: Calm in bed, oriented x2, in no acute distress.. CARDIOVASCULAR: No murmurs. LUNGS: Distant and clear. ABDOMEN: Bowels sound positive. Nontender. Nondistended. EXTREMITIES: Show no cyanosis, clubbing, or edema. NEUROLOGIC: The patient moves all extremities. Slightly weak. Laboratory Tests Test 09/28/17 07:25 White Blood Count 7.0 K/UL (4.8-10.8) Red Blood Count 4.54 M/UL (4.70-6.10) L Hemoglobin 12.3 G/DL (14.2-18.0) L Hematocrit 37.2 % (42.0-52.0) L Mean Corpuscular Volume 82 FL (80-99) Mean Corpuscular Hemoglobin 27.1 PG (27.0-31.0) Mean Corpuscular Hemoglobin Concent 33.1 G/DL (32.0-36.0) Red Cell Distribution Width 13.6 % (11.6-14.8) Platelet Count 401 K/UL (150-450) Mean Platelet Volume 6.6 FL (6.5-10.1) Neutrophils (%) (Auto) 59.8 % (45.0-75.0) Lymphocytes (%) (Auto) 20.8 % (20.0-45.0) Monocytes (%) (Auto) 11.0 % (1.0-10.0) H Eosinophils (%) (Auto) 6.9 % (0.0-3.0) H Basophils (%) (Auto) 1.5 % (0.0-2.0) Sodium Level 140 MMOL/L (136-145) Potassium Level 4.2 MMOL/L (3.5-5.1) Chloride Level 105 MMOL/L (98-107) Carbon Dioxide Level 28 MMOL/L (21-32) Anion Gap 7 mmol/L (5-15) Blood Urea Nitrogen 24 mg/dL (7-18) H Creatinine 1.1 MG/DL (0.55-1.30) Estimat Glomerular Filtration Rate mL/min (>60) Glucose Level 104 MG/DL (74-106) Calcium Level 8.9 MG/DL (8.5-10.1) Phosphorus Level 3.0 MG/DL (2.5-4.9) Magnesium Level 2.0 MG/DL (1.8-2.4) Total Bilirubin 0.3 MG/DL (0.2-1.0) Aspartate Amino Transf (AST/SGOT) 9 U/L (15-37) L Alanine Aminotransferase (ALT/SGPT) 10 U/L (12-78) L Alkaline Phosphatase 65 U/L (46-116) Total Protein 7.5 G/DL (6.4-8.2) Albumin 2.8 G/DL (3.4-5.0) L Globulin 4.7 g/dL Albumin/Globulin Ratio 0.6 (1.0-2.7) L Current Medications Medications (Trade) Dose Ordered Sig/Nicole Route PRN Reason Start Time Stop Time Status Last Admin Dose Admin Acetaminophen (Tylenol) 650 mg Q4H PRN ORAL fever (temp>100.5F) 09/27/17 14:45 10/24/17 22:44 Acetaminophen/ Hydrocodone Bitart ([place] 5/325) 1 tab Q4H PRN ORAL Moderate Pain (Pain Scale 4-6) 09/27/17 12:00 10/01/17 11:59 Al Hydroxide/Mg Hydroxide (Mylanta II) 30 ml Q6H PRN ORAL dyspepsia 09/27/17 12:00 10/24/17 17:59 Carvedilol (Coreg) 3.125 mg EVERY 12 HOURS ORAL 09/27/17 21:00 10/26/17 20:59 09/27/17 20:31 Dextrose (Dextrose 50%) 25 ml STAT PRN IV Hypoglycemia 09/27/17 22:45 10/24/17 22:44 Dextrose (Dextrose 50%) 50 ml STAT PRN IV Hypoglycemia 09/27/17 18:00 10/26/17 17:59 Ertapenem 1 gm/ Sodium Chloride 55 ml @ 110 mls/hr Q24H IVPB 09/27/17 14:00 10/02/17 13:59 09/28/17 15:00 Lisinopril (Zestril) 10 mg DAILY ORAL 09/28/17 09:00 10/27/17 08:59 Lorazepam (Ativan 2mg/ml 1ml) 0.5 mg Q4H PRN IV For Anxiety 09/27/17 12:00 10/01/17 11:59 Memantine (Namenda) 5 mg BID ORAL 09/27/17 18:00 10/26/17 17:59 09/28/17 08:29 Morphine Sulfate (Morphine Sulfate) 1 mg Q4H PRN IVP Severe Pain (Pain Scale 7-10) 09/27/17 14:00 10/02/17 17:59 Ondansetron HCl (Zofran) 4 mg Q6H PRN IVP Nausea & Vomiting 09/27/17 12:00 10/24/17 17:59 Polyethylene Glycol (Miralax) 17 gm HSPRN PRN ORAL Constipation 09/27/17 20:00 10/24/17 19:59 Risperidone (RisperDAL) 0.25 mg BID ORAL 09/27/17 18:00 10/26/17 17:59 09/28/17 08:29 Risperidone (RisperDAL) 1 mg DAILY ORAL 09/28/17 09:00 10/27/17 08:59 09/28/17 08:28 Tamsulosin HCl (Flomax) 0.4 mg BEDTIME ORAL 09/27/17 21:00 10/25/17 20:59 09/27/17 20:31 Zolpidem Tartrate (Ambien) 5 mg HSPRN PRN ORAL Insomnia 09/27/17 20:00 10/01/17 19:59 Radha Barron M.D. Sep 28, 2017 16:09
[2017-09-28 20:00] VITALS: BP 119/49
[2017-09-28] MEDS: Tamsulosin 0.4mg cap ORAL SCH (21:36)
[2017-09-29] VITALS: BP 129/60
[2017-09-29 04:00] VITALS: BP 106/53
[2017-09-29 07:36] LABS: BASOPHILS % (AUTO) 0.6 % (0.0-2.0); EOSINOPHILS % (AUTO) 3.6 % (0.0-3.0); HEMATOCRIT 36.4 % (42.0-52.0); HEMOGLOBIN 12.4 G/DL (14.2-18.0); LYMPHOCYTES % (AUTO) 18.4 % (20.0-45.0); MEAN CORPUSCULAR VOLUME 82 FL (80-99); MONOCYTES % (AUTO) 10.7 % (1.0-10.0); NEUTROPHILS % (AUTO) 66.8 % (45.0-75.0); PLATELET COUNT 427 K/UL (150-450); RED BLOOD COUNT 4.45 M/UL (4.70-6.10); RED CELL DISTRIBUTION WIDTH 13.8 % (11.6-14.8)
[2017-09-29 08:00] VITALS: BP 120/62
[2017-09-29 08:25] LABS: ALANINE AMINOTRANSFERASE 12 U/L (12-78); ALBUMIN/GLOBULIN RATIO 0.6 (1.0-2.7); ALKALINE PHOSPHATASE 65 U/L (46-116); ANION GAP 8 mmol/L (5-15); ASPARTATE AMINO TRANSFERASE 12 U/L (15-37); BILIRUBIN,TOTAL 0.3 MG/DL (0.2-1.0); BLOOD UREA NITROGEN 25 mg/dL (7-18); CALCIUM 9.1 MG/DL (8.5-10.1); CARBON DIOXIDE 26 MMOL/L (21-32); CHLORIDE 105 MMOL/L (98-107); CREATININE 1.1 MG/DL (0.55-1.30); PHOSPHORUS 3.3 MG/DL (2.5-4.9); POTASSIUM 4.1 MMOL/L (3.5-5.1); SODIUM 139 MMOL/L (136-145)
[2017-09-29] MEDS: Memantine 5 MG TAB ORAL SCH ×2 (09:18→18:30)
[2017-09-29] MEDS: Lisinopril 10mg tab ORAL SCH (09:19)
--- NOTE | 2017-09-29 09:28 | General Progress Note ---
Assessment/Plan Problem List: (1) Decubitus ulcer, heel, left, unstageable ICD Codes: L89.620 - Pressure ulcer of left heel, unstageable SNOMED: 787921755 (2) Decubitus ulcer of right heel, unstageable ICD Codes: L89.610 - Pressure ulcer of right heel, unstageable SNOMED: 575335895 (3) Weak ICD Codes: R53.1 - Weakness SNOMED: 28996331 (4) Urinary tract infection ICD Codes: N39.0 - Urinary tract infection, site not specified SNOMED: 16402845 (5) Anemia ICD Codes: D64.9 - Anemia, unspecified SNOMED: 207880729 (6) Chronic heel ulcer ICD Codes: L97.409 - Non-pressure chronic ulcer of unspecified heel and midfoot with unspecified severity SNOMED: 89387167819626732 (7) Cachexia ICD Codes: R64 - Cachexia SNOMED: 557638176 (8) Sepsis ICD Codes: A41.9 - Sepsis, unspecified organism SNOMED: 26123277 Status: stable, progressing Assessment/Plan ot pt diet wound care dc if clear Subjective Constitutional: Reports: weakness Allergies: Coded Allergies: No Known Allergies (Unverified , 07/19/17) All Systems: reviewed and negative except above Subjective calm in bed sleepy Objective Last 24 Hour Vital Signs Date Time Temp Pulse Resp B/P (MAP) Pulse Ox O2 Delivery O2 Flow Rate FiO2 09/29/17 09:19 120/62 09/29/17 09:19 88 120/62 09/29/17 04:00 85 09/29/17 04:00 97.4 84 18 106/53 95 Room Air 97.4 09/29/17 00:00 82 09/29/17 00:00 97.3 80 18 129/60 95 Room Air 97.3 09/28/17 21:36 89 119/49 09/28/17 20:00 89 09/28/17 20:00 98.2 94 18 119/49 95 Room Air 98.2 09/28/17 16:00 97.7 86 20 125/67 95 Room Air 97.7 09/28/17 16:00 91 09/28/17 12:00 97.2 80 20 128/53 95 Room Air 97.2 09/28/17 12:00 97 Intake and Output 09/28/17 09/29/17 19:00 07:00 Intake Total 505 ml Balance 505 ml Intake Oral 450 ml IV Total 55 ml # Voids 1 3 Laboratory Tests 09/29/17 06:25: White Blood Count 9.0, Red Blood Count 4.45L, Hemoglobin 12.4L, Hematocrit 36.4L , Mean Corpuscular Volume 82, Mean Corpuscular Hemoglobin 27.9, Mean Corpuscular Hemoglobin Concent 34.1, Red Cell Distribution Width 13.8, Platelet Count 427, Mean Platelet Volume 6.8, Neutrophils (%) (Auto) 66.8, Lymphocytes (% ) (Auto) 18.4L, Monocytes (%) (Auto) 10.7H, Eosinophils (%) (Auto) 3.6H, Basophils (%) (Auto) 0.6, Sodium Level 139, Potassium Level 4.1, Chloride Level 105, Carbon Dioxide Level 26, Anion Gap 8, Blood Urea Nitrogen 25H, Creatinine 1.1, Estimat Glomerular Filtration Rate , Glucose Level 107H, Calcium Level 9.1 , Phosphorus Level 3.3, Magnesium Level 2.1, Total Bilirubin 0.3, Aspartate Amino Transf (AST/SGOT) 12L, Alanine Aminotransferase (ALT/SGPT) 12, Alkaline Phosphatase 65, Total Protein 7.9, Albumin 3.0L, Globulin 4.9, Albumin/Globulin Ratio 0.6L Height (Feet): 5 Height (Inches): 11.00 Weight (Pounds): 132 General Appearance: lethargic EENT: normal ENT inspection Neck: normal alignment Cardiovascular: normal peripheral pulses, normal rate, regular rhythm Respiratory/Chest: chest wall non-tender, lungs clear, normal breath sounds Abdomen: normal bowel sounds, non tender, soft Extremities: normal inspection Edema: no edema noted Arm (L), no edema noted Arm (R), no edema noted Leg (L), no edema noted Leg (R), no edema noted Pedal (L), no edema noted Pedal (R), no edema noted Generalized Neurologic: responsive, motor weakness Skin: normal pigmentation, warm/dry Samir Cramer DO Sep 29, 2017 09:28
--- NOTE | 2017-09-29 10:45 | Pulmonology Progress Note ---
Assessment/Plan Problems: (1) COPD (chronic obstructive pulmonary disease) (2) MDRO (multiple drug resistant organisms) resistance (3) BPH (benign prostatic hyperplasia) (4) Arrhythmia (5) Severe protein-calorie malnutrition (6) Chronic heel ulcer (7) Urinary tract infection Assessment/Plan doing better no new complains improving respiratory treatment continue abx check cultures check electrolytes wound care dvt prophylaxis Subjective ROS Limited/Unobtainable: No Constitutional: Reports: no symptoms HEENT: Repors: no symptoms Respiratory: Reports: no symptoms Allergies: Coded Allergies: No Known Allergies (Unverified , 07/19/17) Objective Last 24 Hour Vital Signs Date Time Temp Pulse Resp B/P (MAP) Pulse Ox O2 Delivery O2 Flow Rate FiO2 09/29/17 09:19 120/62 09/29/17 09:19 88 120/62 09/29/17 04:00 85 09/29/17 04:00 97.4 84 18 106/53 95 Room Air 97.4 09/29/17 00:00 82 09/29/17 00:00 97.3 80 18 129/60 95 Room Air 97.3 09/28/17 21:36 89 119/49 09/28/17 20:00 89 09/28/17 20:00 98.2 94 18 119/49 95 Room Air 98.2 09/28/17 16:00 97.7 86 20 125/67 95 Room Air 97.7 09/28/17 16:00 91 09/28/17 12:00 97.2 80 20 128/53 95 Room Air 97.2 09/28/17 12:00 97 Intake and Output 09/28/17 09/29/17 19:00 07:00 Intake Total 505 ml Balance 505 ml Intake Oral 450 ml IV Total 55 ml # Voids 1 3 General Appearance: cachetic HEENT: normocephalic, atraumatic Respiratory/Chest: chest wall non-tender, lungs clear Cardiovascular: normal peripheral pulses, normal rate Abdomen: normal bowel sounds, soft, non tender Genitourinary: normal external genitalia Skin: no rash Neurologic/Psychiatric: tomb maker helper II-XII grossly normal Laboratory Tests 09/29/17 06:25: White Blood Count 9.0, Red Blood Count 4.45L, Hemoglobin 12.4L, Hematocrit 36.4L , Mean Corpuscular Volume 82, Mean Corpuscular Hemoglobin 27.9, Mean Corpuscular Hemoglobin Concent 34.1, Red Cell Distribution Width 13.8, Platelet Count 427, Mean Platelet Volume 6.8, Neutrophils (%) (Auto) 66.8, Lymphocytes (% ) (Auto) 18.4L, Monocytes (%) (Auto) 10.7H, Eosinophils (%) (Auto) 3.6H, Basophils (%) (Auto) 0.6, Sodium Level 139, Potassium Level 4.1, Chloride Level 105, Carbon Dioxide Level 26, Anion Gap 8, Blood Urea Nitrogen 25H, Creatinine 1.1, Estimat Glomerular Filtration Rate , Glucose Level 107H, Calcium Level 9.1 , Phosphorus Level 3.3, Magnesium Level 2.1, Total Bilirubin 0.3, Aspartate Amino Transf (AST/SGOT) 12L, Alanine Aminotransferase (ALT/SGPT) 12, Alkaline Phosphatase 65, Total Protein 7.9, Albumin 3.0L, Globulin 4.9, Albumin/Globulin Ratio 0.6L Current Medications Medications (Trade) Dose Ordered Sig/Nicole Route PRN Reason Start Time Stop Time Status Last Admin Dose Admin Acetaminophen (Tylenol) 650 mg Q4H PRN ORAL fever (temp>100.5F) 09/27/17 14:45 10/24/17 22:44 Acetaminophen/ Hydrocodone Bitart ([place] 5/325) 1 tab Q4H PRN ORAL Moderate Pain (Pain Scale 4-6) 09/27/17 12:00 10/01/17 11:59 Al Hydroxide/Mg Hydroxide (Mylanta II) 30 ml Q6H PRN ORAL dyspepsia 09/27/17 12:00 10/24/17 17:59 Carvedilol (Coreg) 3.125 mg EVERY 12 HOURS ORAL 09/27/17 21:00 10/26/17 20:59 09/29/17 09:19 Dextrose (Dextrose 50%) 25 ml STAT PRN IV Hypoglycemia 09/27/17 22:45 10/24/17 22:44 Dextrose (Dextrose 50%) 50 ml STAT PRN IV Hypoglycemia 09/27/17 18:00 10/26/17 17:59 Ertapenem 1 gm/ Sodium Chloride 55 ml @ 110 mls/hr Q24H IVPB 09/27/17 14:00 10/02/17 13:59 09/28/17 15:00 Lisinopril (Zestril) 10 mg DAILY ORAL 09/28/17 09:00 10/27/17 08:59 09/29/17 09:19 Lorazepam (Ativan 2mg/ml 1ml) 0.5 mg Q4H PRN IV For Anxiety 09/27/17 12:00 10/01/17 11:59 Memantine (Namenda) 5 mg BID ORAL 09/27/17 18:00 10/26/17 17:59 09/29/17 09:18 Morphine Sulfate (Morphine Sulfate) 1 mg Q4H PRN IVP Severe Pain (Pain Scale 7-10) 09/27/17 14:00 10/02/17 17:59 Ondansetron HCl (Zofran) 4 mg Q6H PRN IVP Nausea & Vomiting 09/27/17 12:00 10/24/17 17:59 Polyethylene Glycol (Miralax) 17 gm HSPRN PRN ORAL Constipation 09/27/17 20:00 10/24/17 19:59 Risperidone (RisperDAL) 0.25 mg BID ORAL 09/27/17 18:00 10/26/17 17:59 09/29/17 09:19 Risperidone (RisperDAL) 1 mg DAILY ORAL 09/28/17 09:00 10/27/17 08:59 09/29/17 09:19 Tamsulosin HCl (Flomax) 0.4 mg BEDTIME ORAL 09/27/17 21:00 10/25/17 20:59 09/28/17 21:36 Zolpidem Tartrate (Ambien) 5 mg HSPRN PRN ORAL Insomnia 09/27/17 20:00 10/01/17 19:59 Margie Britton MD Sep 29, 2017 10:45
[2017-09-29 12:00] VITALS: BP 118/57
--- NOTE | 2017-09-29 12:45 | Infectious Diseases Prog Note ---
Assessment/Plan Assessment/Plan Abx: Keflex x1 09/24 Ertapenem x1 09/24 Assessment: Possible UTI (+difficulty urination, leukocytosis) -u/a wbc 30-40, nit neg, leuk +3; ucx >100K P. stuarti (R Amp, ancef, Genta; I Cipro/levo, Zosyn; CEftriaxone reported as S- however Anthony 8 0 ?resistant), S. 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 -09/27 SP Meropenem #2 -09/24 SP Keflex and Ertapenem x1 -f/u cx -Monitor CBC/CMP, temperatures -aspiration -wound care per hosp protocol Thank you for this consultation. Will continue to follow along with you. Discussed with RN Subjective Allergies: Coded Allergies: No Known Allergies (Unverified , 07/19/17) Subjective afebrile no leukocytosis for discharge Objective Vital Signs Last 24 Hour Vital Signs Date Time Temp Pulse Resp B/P (MAP) Pulse Ox O2 Delivery O2 Flow Rate FiO2 09/29/17 12:00 95 09/29/17 12:00 98.1 87 18 118/57 95 Room Air 98.1 09/29/17 09:19 120/62 09/29/17 09:19 88 120/62 09/29/17 08:00 97.0 88 18 120/62 94 Room Air 97.0 09/29/17 08:00 101 09/29/17 04:00 85 09/29/17 04:00 97.4 84 18 106/53 95 Room Air 97.4 09/29/17 00:00 82 09/29/17 00:00 97.3 80 18 129/60 95 Room Air 97.3 09/28/17 21:36 89 119/49 09/28/17 20:00 89 09/28/17 20:00 98.2 94 18 119/49 95 Room Air 98.2 09/28/17 16:00 97.7 86 20 125/67 95 Room Air 97.7 09/28/17 16:00 91 Height (Feet): 5 Height (Inches): 11.00 Weight (Pounds): 132 Objective GENERAL: Calm in bed, oriented x2, in no acute distress.. CARDIOVASCULAR: No murmurs. LUNGS: Distant and clear. ABDOMEN: Bowels sound positive. Nontender. Nondistended. EXTREMITIES: Show no cyanosis, clubbing, or edema. NEUROLOGIC: The patient moves all extremities. Slightly weak. Laboratory Tests Test 09/29/17 06:25 White Blood Count 9.0 K/UL (4.8-10.8) Red Blood Count 4.45 M/UL (4.70-6.10) L Hemoglobin 12.4 G/DL (14.2-18.0) L Hematocrit 36.4 % (42.0-52.0) L Mean Corpuscular Volume 82 FL (80-99) Mean Corpuscular Hemoglobin 27.9 PG (27.0-31.0) Mean Corpuscular Hemoglobin Concent 34.1 G/DL (32.0-36.0) Red Cell Distribution Width 13.8 % (11.6-14.8) Platelet Count 427 K/UL (150-450) Mean Platelet Volume 6.8 FL (6.5-10.1) Neutrophils (%) (Auto) 66.8 % (45.0-75.0) Lymphocytes (%) (Auto) 18.4 % (20.0-45.0) L Monocytes (%) (Auto) 10.7 % (1.0-10.0) H Eosinophils (%) (Auto) 3.6 % (0.0-3.0) H Basophils (%) (Auto) 0.6 % (0.0-2.0) Sodium Level 139 MMOL/L (136-145) Potassium Level 4.1 MMOL/L (3.5-5.1) Chloride Level 105 MMOL/L (98-107) Carbon Dioxide Level 26 MMOL/L (21-32) Anion Gap 8 mmol/L (5-15) Blood Urea Nitrogen 25 mg/dL (7-18) H Creatinine 1.1 MG/DL (0.55-1.30) Estimat Glomerular Filtration Rate mL/min (>60) Glucose Level 107 MG/DL (74-106) H Calcium Level 9.1 MG/DL (8.5-10.1) Phosphorus Level 3.3 MG/DL (2.5-4.9) Magnesium Level 2.1 MG/DL (1.8-2.4) Total Bilirubin 0.3 MG/DL (0.2-1.0) Aspartate Amino Transf (AST/SGOT) 12 U/L (15-37) L Alanine Aminotransferase (ALT/SGPT) 12 U/L (12-78) Alkaline Phosphatase 65 U/L (46-116) Total Protein 7.9 G/DL (6.4-8.2) Albumin 3.0 G/DL (3.4-5.0) L Globulin 4.9 g/dL Albumin/Globulin Ratio 0.6 (1.0-2.7) L Current Medications Medications (Trade) Dose Ordered Sig/Nicole Route PRN Reason Start Time Stop Time Status Last Admin Dose Admin Acetaminophen (Tylenol) 650 mg Q4H PRN ORAL fever (temp>100.5F) 09/27/17 14:45 10/24/17 22:44 Acetaminophen/ Hydrocodone Bitart (Friend 5/325) 1 tab Q4H PRN ORAL Moderate Pain (Pain Scale 4-6) 09/27/17 12:00 10/01/17 11:59 Al Hydroxide/Mg Hydroxide (Mylanta II) 30 ml Q6H PRN ORAL dyspepsia 09/27/17 12:00 10/24/17 17:59 Carvedilol (Coreg) 3.125 mg EVERY 12 HOURS ORAL 09/27/17 21:00 10/26/17 20:59 09/29/17 09:19 Dextrose (Dextrose 50%) 25 ml STAT PRN IV Hypoglycemia 09/27/17 22:45 10/24/17 22:44 Dextrose (Dextrose 50%) 50 ml STAT PRN IV Hypoglycemia 09/27/17 18:00 10/26/17 17:59 Ertapenem 1 gm/ Sodium Chloride 55 ml @ 110 mls/hr Q24H IVPB 09/27/17 14:00 10/02/17 13:59 09/28/17 15:00 Lisinopril (Zestril) 10 mg DAILY ORAL 09/28/17 09:00 10/27/17 08:59 09/29/17 09:19 Lorazepam (Ativan 2mg/ml 1ml) 0.5 mg Q4H PRN IV For Anxiety 09/27/17 12:00 10/01/17 11:59 Memantine (Namenda) 5 mg BID ORAL 09/27/17 18:00 10/26/17 17:59 09/29/17 09:18 Morphine Sulfate (Morphine Sulfate) 1 mg Q4H PRN IVP Severe Pain (Pain Scale 7-10) 09/27/17 14:00 10/02/17 17:59 Ondansetron HCl (Zofran) 4 mg Q6H PRN IVP Nausea & Vomiting 09/27/17 12:00 10/24/17 17:59 Polyethylene Glycol (Miralax) 17 gm HSPRN PRN ORAL Constipation 09/27/17 20:00 10/24/17 19:59 Risperidone (RisperDAL) 0.25 mg BID ORAL 09/27/17 18:00 10/26/17 17:59 09/29/17 09:19 Risperidone (RisperDAL) 1 mg DAILY ORAL 09/28/17 09:00 10/27/17 08:59 09/29/17 09:19 Tamsulosin HCl (Flomax) 0.4 mg BEDTIME ORAL 09/27/17 21:00 10/25/17 20:59 09/28/17 21:36 Zolpidem Tartrate (Ambien) 5 mg HSPRN PRN ORAL Insomnia 09/27/17 20:00 10/01/17 19:59 Radha Barron M.D. Sep 29, 2017 12:45
--- NOTE | 2017-09-29 14:00 | Progress Note ---
DATE: 09/29/2017 SUBJECTIVE: The patient is a 77-year-old male patient with sepsis, urinary tract infection, confused, disorganized, mood labile, altered mental status. That is why, his attending has requested daily psychiatric consultation. MENTAL STATUS EXAMINATION: This is a 77-year-old male. Appearance is disheveled. Attitude, irritable and agitated. Affect, guarded and restricted. Intellect poor. Mood depressed and anxious. Motor activity, psychomotor agitation. Attention span is poor. Orientation x2. Speech is pressured. Thought process, disorganized and illogical. Thought content, auditory hallucinations and paranoid delusions. Insight and judgment is poor. DIAGNOSIS: Major depression with psychotic features. PLAN: Ativan 0.5 mg IV q. 4 hours p.r.n. anxiety and agitation, Namenda 5 mg twice a day. An 18 to 20 minutes of cognitive behavioral therapy provided to the patient to improve his mood and negative thought process . Chart reviewed and discussed with staff. Seen and assessed in his room. Lea Dodd M.D. DR: CHERELLE JOB#: [id number] CC:
[2017-09-29] MEDS: Ertapenem 1 GM in NS 55 ML IVPB SCH (15:26)
[2017-09-29 16:00] VITALS: BP 117/68
--- NOTE | 2017-09-29 16:28 | Cardiac Electrophysiology PN ---
Assessment/Plan Assessment/Plan 1. Nonsustained ventricular tachycardia 7 beats. Likely due to CMP 2. Cardiomyopathy with EF 40%. On Coreg and Lisinopril. No further VT. No Syncope. Ischemia eval as out patient if agrees 3. Urinary tract infection, on antibiotic. 4. Psychosis, on risperidone, under management of Dr. Lea Dodd. HANK RN DC planning today Subjective Subjective Comfortable in NAD. No CP or SOB. Awaiting discharge Objective Last 24 Hour Vital Signs Date Time Temp Pulse Resp B/P (MAP) Pulse Ox O2 Delivery O2 Flow Rate FiO2 09/29/17 16:00 97.8 89 18 117/68 93 Room Air 97.8 09/29/17 12:00 95 09/29/17 12:00 98.1 87 18 118/57 95 Room Air 98.1 09/29/17 09:19 120/62 09/29/17 09:19 88 120/62 09/29/17 08:00 97.0 88 18 120/62 94 Room Air 97.0 09/29/17 08:00 101 09/29/17 04:00 85 09/29/17 04:00 97.4 84 18 106/53 95 Room Air 97.4 09/29/17 00:00 82 09/29/17 00:00 97.3 80 18 129/60 95 Room Air 97.3 09/28/17 21:36 89 119/49 09/28/17 20:00 89 09/28/17 20:00 98.2 94 18 119/49 95 Room Air 98.2 Intake and Output 09/28/17 09/29/17 19:00 07:00 Intake Total 505 ml Balance 505 ml Intake Oral 450 ml IV Total 55 ml # Voids 1 3 Laboratory Tests Test 09/29/17 06:25 White Blood Count 9.0 K/UL (4.8-10.8) Red Blood Count 4.45 M/UL (4.70-6.10) L Hemoglobin 12.4 G/DL (14.2-18.0) L Hematocrit 36.4 % (42.0-52.0) L Mean Corpuscular Volume 82 FL (80-99) Mean Corpuscular Hemoglobin 27.9 PG (27.0-31.0) Mean Corpuscular Hemoglobin Concent 34.1 G/DL (32.0-36.0) Red Cell Distribution Width 13.8 % (11.6-14.8) Platelet Count 427 K/UL (150-450) Mean Platelet Volume 6.8 FL (6.5-10.1) Neutrophils (%) (Auto) 66.8 % (45.0-75.0) Lymphocytes (%) (Auto) 18.4 % (20.0-45.0) L Monocytes (%) (Auto) 10.7 % (1.0-10.0) H Eosinophils (%) (Auto) 3.6 % (0.0-3.0) H Basophils (%) (Auto) 0.6 % (0.0-2.0) Sodium Level 139 MMOL/L (136-145) Potassium Level 4.1 MMOL/L (3.5-5.1) Chloride Level 105 MMOL/L (98-107) Carbon Dioxide Level 26 MMOL/L (21-32) Anion Gap 8 mmol/L (5-15) Blood Urea Nitrogen 25 mg/dL (7-18) H Creatinine 1.1 MG/DL (0.55-1.30) Estimat Glomerular Filtration Rate mL/min (>60) Glucose Level 107 MG/DL (74-106) H Calcium Level 9.1 MG/DL (8.5-10.1) Phosphorus Level 3.3 MG/DL (2.5-4.9) Magnesium Level 2.1 MG/DL (1.8-2.4) Total Bilirubin 0.3 MG/DL (0.2-1.0) Aspartate Amino Transf (AST/SGOT) 12 U/L (15-37) L Alanine Aminotransferase (ALT/SGPT) 12 U/L (12-78) Alkaline Phosphatase 65 U/L (46-116) Total Protein 7.9 G/DL (6.4-8.2) Albumin 3.0 G/DL (3.4-5.0) L Globulin 4.9 g/dL Albumin/Globulin Ratio 0.6 (1.0-2.7) L Objective HEAD AND NECK: Shows no JVD. LUNGS: Clear. CARDIOVASCULAR: Regular S1 and S2 with no gallop or murmur. ABDOMEN: Soft. EXTREMITIES: No pitting edema. Charly Krueger MD Sep 29, 2017 16:28
--- NOTE | 2017-09-30 09:08 | Discharge Summary ---
Discharge Summary Discharge Summary _ DATE OF ADMISSION: 09/24/2017 DATE OF DISCHARGE: 09/29/2017 REASON FOR ADMISSION: 77 years old male , resident of long-term facility, with past medical history of COPD, BPH, chronic left shoulder dislocation , was sent from the long-term facility for evaluation due to increased difficulty with urination. The patient was noted to have a resistant urinary tract infection. Upon evaluation vital signs were stable .patient was afebrile. WBC 16.7, mild anemia BUN 23 creatinine 1.2 stable LFT and electrolytes. lactic acid 1.2 urinalysis revealed evidence of UTI. Patient admitted with diagnosis off urinary tract infection, rule out sepsis, BPH, decubitus ulcer present on admission, mild anemia . CONSULTANTS: food server Dr. Krueger pulmonary Dr. Britton ID specialist Dr. Mikala Torres psychiatrist Dr. Dodd [facility] COURSE: Patient admitted to telemetry floor. Patient started on empiric antibiotic Urine culture revealed Proteus Antibiotic regimen optimized as per ID specialist, who closely followed. Blood culture were negative. Leukocytosis resolved afebrile. Flomax was continued. No evidence of urinary retention. Renal parameters and electrolytes were closely monitored. Electrolytes were corrected as needed. Nephrotoxins were avoided. Renal parameters stable. Caustic Liquor Maker closely followed. Echocardiogram revealed ejection fraction of 40-45% with significant segmental wall motion abnormalities. Noted aortic stenosis, moderate aortic insufficiency, moderate mitral regurgitation. Right ventricular systolic pressure of 45 consistent with moderate pulmonary hypertension. Anti- failure medication regimen was utilized, including beta nico and GUILLERMO inhibitor. No evidence of decompensation . Lipid panel revealed elevated total cholesterol and elevated LDL. Recommended initiation of statin as outpatient if patient agrees. Patient noted to have episode of nonsustained ventricular tachycardia with 7beats. Per food server, likely secondary to cardiomyopathy No further evidence of nonsustained ventricular tachycardia, no syncope Caustic Liquor Maker recommended ischemic evaluation as outpatient if patient agrees. TSH within normal limits Hand Mexican Food Maker closely followed. Chest x-ray revealed probable atelectasis , but no evidence of pneumonia or pleural effusion. Venous duplex bilateral lower extremity was negative. Supplemental oxygen provided as needed to keep pulse oximetry above 92%. Pulmonary toilet was on standby. No evidence of COPD exacerbation. Aspiration precautions were maintained. Administration Clerk recommendation implemented in plan of care. Patient was working with physical and occupational therapists. Fall precautions were maintained. Hemoglobin and hematocrit remain stable, at baseline. Wound care provided for pressure ulcers present on admission as per wound care protocol . Psychiatrist closely followed. Psychiatrist diagnosed patient with major depression with psychotic features. Psychiatric medication regimen optimized as per [id number]. Patient stabilized . Afebrile, leukocytosis resolved ,no difficulty with voiding ,no further episodes of nonsustained ventricular tachycardia, no shortness of breath, no respiratory distress. Patient was ready for transfer back to long-term facility for continuation of care. ] FINAL DIAGNOSES: Providencia UTI BPH Cardiomyopathy with ejection fraction 40% Nonsustained ventricular tachycardia, likely secondary to cardiomyopathy Severe protein calorie malnutrition COPD Major depression with psychotic feature Pressure ulcers, present on admission (right and left heel, left lateral foot , left hip, left buttock) Anemia Chronic left shoulder dislocation DISCHARGE MEDICATIONS: List of medication was sent to accepting facility. DISCHARGE INSTRUCTIONS: Patient was discharged to long-term facility for continuation of care. Follow up with medical doctor at the facility. I have been assigned to dictate discharge summary for this account. I was not involved in the patient's management. Aster Christensen NP Sep 30, 2017 09:08
== END 2017-09-29 20:00 | DRG 689 ==
LOC: EDBD 18:27 → EMR 19:00 → 2E 23:29 → EDBEDREQ 09-25 02:33 → 4E 09-26 17:37 → 2E 09-26 21:59
DX: N39.0 Urinary tract infection, site not specified (principal); E43 Unspecified severe protein-calorie malnutrition; I42.9 Cardiomyopathy, unspecified; I47.2 Ventricular tachycardia; F32.3 Major depressive disorder, single episode, severe with psychotic features; F20.0 Paranoid schizophrenia; Z68.1 Body mass index [BMI] 19.9 or less, adult; B96.89 Other specified bacterial agents as the cause of diseases classified elsewhere; Z16.24 Resistance to multiple antibiotics; J44.9 Chronic obstructive pulmonary disease, unspecified; L89.229 Pressure ulcer of left hip, unspecified stage; L89.329 Pressure ulcer of left buttock, unspecified stage; D64.9 Anemia, unspecified; M24.412 Recurrent dislocation, left shoulder; N40.0 Benign prostatic hyperplasia without lower urinary tract symptoms; E11.9 Type 2 diabetes mellitus without complications; L89.620 Pressure ulcer of left heel, unstageable; L89.610 Pressure ulcer of right heel, unstageable; I35.1 Nonrheumatic aortic (valve) insufficiency; I34.0 Nonrheumatic mitral (valve) insufficiency
CPT/HCPCS: 36415; 71045; 80048; 80053; 80061; 81003; 82550; 82553; 83605; 83735; 83880; 84100; 84443; 84484; 85025; 87040; 87081; 87086; 87181; 93005; 93306; 93970; 97803; 99284

== ENCOUNTER 2017-10-20 22:44 | Inpatient (IN) | payer MEDICARE, MEDICAID ==
[~2017-10-20] VITALS: Ht 172.7 cm; Wt 54.4 kg
[2017-10-20 23:27] LABS: BILIRUBIN, URINE NEGATIVE (NEGATIVE); COLOR,URINE PALE YELLOW; GLUCOSE, URINE (UA) NEGATIVE (NEGATIVE); KETONES,URINE NEGATIVE (NEGATIVE); LEUKOCYTE ESTERASE ,URINE 3+ (NEGATIVE); NITRITE,URINE POSITIVE (NEGATIVE); PH,URINE 5 (4.5-8.0); PROTEIN,URINE 3+ (NEGATIVE); UROBILINOGEN,URINE NORMAL MG/DL (0.0-1.0)
[2017-10-20 23:31] LABS: HEMATOCRIT 33.5 % (42.0-52.0); MEAN CORPUSCULAR VOLUME 80 FL (80-99); PLATELET COUNT 519 K/UL (150-450); RED CELL DISTRIBUTION WIDTH 14.6 % (11.6-14.8); WHITE BLOOD COUNT 18.8 K/UL (4.8-10.8)
[2017-10-20 23:39] LABS: APPEARANCE,URINE CLOUDY
[2017-10-20 23:43] LABS: ANION GAP 13 mmol/L (5-15); BLOOD UREA NITROGEN 94 mg/dL (7-18); CALCIUM 9.1 MG/DL (8.5-10.1); CARBON DIOXIDE 24 MMOL/L (21-32); CHLORIDE 101 MMOL/L (98-107); CREATININE 2.7 MG/DL (0.55-1.30); POTASSIUM 3.8 MMOL/L (3.5-5.1); SODIUM 138 MMOL/L (136-145)
[2017-10-20] MEDS ORDERED: cefTRIAXone 1 GM in NS 55 ML IVPB ONE (23:45)
[2017-10-20 23:54] LABS: ALANINE AMINOTRANSFERASE 136 U/L (12-78); ALBUMIN 2.4 G/DL (3.4-5.0); ALBUMIN/GLOBULIN RATIO 0.4 (1.0-2.7); ALKALINE PHOSPHATASE 98 U/L (46-116); ASPARTATE AMINO TRANSFERASE 95 U/L (15-37); BILIRUBIN,TOTAL 0.3 MG/DL (0.2-1.0); CKMB < 0.5 NG/ML (0.0-3.6); CREATINE KINASE 12 U/L (26-308)
--- NOTE | 2017-10-21 01:45 | Emergency Room Report ---
History of Present Illness General Chief Complaint: Male Urogenital Problems Source: Medical Record Present Illness HPI This is a 77-year-old male with history diabetes and UTI. He presents with chief complaint of redness to the penis. While here, noted to have a fever. History is limited this patient because of his condition. Is no nausea no vomiting. No chest pain. No trauma. Allergies: Coded Allergies: No Known Allergies (Unverified , 07/19/17) Patient History Past Medical History: see triage record, old chart reviewed, DM Past Surgical History: other Pertinent Family History: none Social History: Denies: smoking Immunizations: other Reviewed Nursing Documentation: PMH: Agreed; PSxH: Agreed Nursing Documentation-PMH Hx Diabetes: Yes Hx Cancer: No Hx Gastrointestinal Problems: No - dysphagia Hx Weakness: Yes Review of Systems Constitutional: Reports: fever Eye: Denies: eye pain, blurred vision ENT: Denies: ear pain, nose congestion, throat swelling Respiratory: Denies: cough, shortness of breath Cardiovascular: Denies: chest pain, palpitations Gastrointestinal: Denies: abdominal pain, diarrhea, nausea, vomiting Genitourinary: Reports: pain Musculoskeletal: Denies: back pain, joint pain Skin: Denies: rash Neurological: Denies: headache, numbness Endocrine: Denies: increased thirst, increased urine Hematologic/Lymphatic: Denies: easy bruising All Other Systems: negative except mentioned in HPI Physical Exam Vital Signs Date Time Temp Pulse Resp B/P (MAP) Pulse Ox O2 Delivery O2 Flow Rate FiO2 10/20/17 22:46 102.9 111 16 102/58 92 Room Air 102.9 vitals with fever and tachycardia Sp02 EP Interpretation: reviewed, normal General Appearance: no apparent distress, alert, thin, Chronically Ill Head: normocephalic, atraumatic Eyes: bilateral eye PERRL, bilateral eye EOMI ENT: hearing grossly normal, normal pharynx Neck: full range of motion, supple, no meningismus Respiratory: chest non-tender, lungs clear, normal breath sounds Cardiovascular #1: regular rate, rhythm, no murmur, tachycardia Gastrointestinal: normal bowel sounds, non tender, no mass, no organomegaly, no bruit, non-distended Rectal: other Musculoskeletal: back normal, other - contracted Psychiatric: mood/affect normal Skin: warm/dry Medical Decision Making Diagnostic Impression: Primary Impression: Sepsis Qualified Codes: A41.9 - Sepsis, unspecified organism Additional Impressions: UTI (urinary tract infection) Qualified Codes: N30.00 - Acute cystitis without hematuria ARF (acute renal failure) Qualified Codes: N17.9 - Acute kidney failure, unspecified Phimosis/adherent prepuce Proteinuria Qualified Codes: R80.9 - Proteinuria, unspecified ER Course Patient presents with sepsis from UTI. He grew out Providencia last month and is sensitive to Rocephin. He received Rocephin here. IV fluid given. Blood pressure improved. He has phimosis. This is probably a chronic problem. I was able to pass a 14 Thai catheter to get urine. Urine was cloudy. I left the catheter in place. This was done under sterile condition. Urine output improved with IV fluid. I discussed the case with Dr. Cramer and Dr. Britton for admission. Lab Results Impression labs with leukocytosis. EKG Diagnostic Results Rate: normal Rhythm: NSR ST Segments: no acute changes Rhythm Strip Diag. Results Rhythm Strip Time: 02:23 EP Interpretation: yes Rate: 81 Rhythm: NSR, no PVC's, no ectopy Chest X-Ray Diagnostic Results Chest X-Ray Diagnostic Results : Chest X-Ray Ordered: Yes # of Views/Limited/Complete: 1 View Indication: Shortness of Breath EP Interpretation: Yes Interpretation: no consolidation, no effusion, no pneumothorax, no acute cardiopulmonary disease Impression: No acute disease Electronically Signed by: Brandon Monte MD Last Vital Signs Date Time Temp Pulse Resp B/P (MAP) Pulse Ox O2 Delivery O2 Flow Rate FiO2 10/20/17 22:46 102.9 111 16 102/58 92 Room Air 102.9 Status: improved Disposition: ADMITTED INPATIENT Condition: Serious Referrals: Samir Cramer DO (PCP) BRANDON MONTE M.D. Oct 21, 2017 01:45
[2017-10-21 03:44] VITALS: BP 111/53
[2017-10-21] MEDS ORDERED: Miralax 17gm pkt ORAL PRN (07:30)
[2017-10-21] MEDS ORDERED: Albuterol/Ipratropium 3ml neb HHN PRN ×2 (07:30→16:45)
[2017-10-21] MEDS ORDERED: Morphine Sulfate 2mg/ml Inj IVP PRN ×2 (07:30→17:00)
[2017-10-21 08:00] VITALS: BP 106/54
[2017-10-21] MEDS ORDERED: Cefepime 1gm/D5W 55ml IVPB SCH ×2 (08:00)
[2017-10-21] MEDS ORDERED: Heparin 5000 units/ml inj SUBQ SCH (09:00)
[2017-10-21] MEDS ORDERED: Cefepime HCl 2 GM in D5W 110 ML IV SCH (09:00)
[2017-10-21] MEDS ORDERED: Vancomycin 1 GM in D5W 275 ML IVPB ONE (09:30)
--- NOTE | 2017-10-21 10:44 | Consultation ---
History of Present Illness General Date patient seen: Oct 21, 2017 Chief Complaint: Male Urogenital Problems Present Illness HPI 77-year-old male with history diabetes, dementia, COPD, [facility] resident, presented to ER with chief complaint of redness to the penis, fever. Is no nausea no vomiting. No chest pain. No trauma. Pt was found to be septic with acute renal failure. He is admitted to telemetry for further treatment. Allergies: Coded Allergies: No Known Allergies (Unverified , 07/19/17) Medication History Scheduled Ascorbic Acid* (Vitamin C*), 500 MG ORAL DAILY, (Reported) Docusate Sodium* (Docusate Sodium*), 100 MG ORAL TWICE A DAY, (Reported) Ertapenem Sodium* (INVanz*), 1 GM IVPB Q24H, (Reported) Multivitamin With Minerals (Multivitamins With Minerals*), 1 TAB ORAL DAILY, ( Reported) Nitrofurantoin Macrocrystal (Nitrofurantoin), 100 MG PO BID, (Reported) Tamsulosin Hcl (Tamsulosin Hcl*), 0.4 MG ORAL BEDTIME, (Reported) Trimethoprim/Sulfamethoxazole 160/800* (Bactrim Ds Tablet*), 1 TAB ORAL Q12H Zinc Sulfate (Zinc Sulfate*), 220 MG ORAL DAILY, (Reported) Scheduled PRN Acetaminophen (Acetaminophen), 650 MG ORAL Q4HR PRN for Mild Pain/Temp > 100.5, (Reported) Hydrocodone Bit/Acetaminophen 5-325* ([place] 5-325 Tablet*), 1 TAB ORAL Q4H PRN for Moderate Pain (Pain Scale 4-6), (Reported) Melatonin (Melatonin), 3 MG PO for Insomnia, (Reported) Ondansetron* (Zofran*), 4 MG ORAL Q6H PRN for Nausea & Vomiting, (Reported) Patient History Healthcare decision maker Resuscitation status Full Code Advanced Directive on File Past Medical/Surgical History Past Medical/Surgical History: (1) Arrhythmia (2) COPD (chronic obstructive pulmonary disease) (3) Decubitus ulcer of right heel, unstageable (4) Severe protein-calorie malnutrition (5) Cachexia (6) BPH (benign prostatic hyperplasia) Review of Systems All Other Systems: negative except mentioned in HPI Physical Exam General Appearance: WD/WN Lines, tubes and drains: peripheral HEENT: normocephalic, atraumatic Neck: non-tender, normal alignment Respiratory/Chest: chest wall non-tender, lungs clear Breasts: no masses Cardiovascular/Chest: normal peripheral pulses Abdomen: normal bowel sounds, non tender Genitourinary/Rectal: normal genital exam Extremities: normal range of motion Skin Exam: normal pigmentation Last 24 Hour Vital Signs Date Time Temp Pulse Resp B/P (MAP) Pulse Ox O2 Delivery O2 Flow Rate FiO2 10/21/17 09:00 Room Air 10/21/17 08:00 88 10/21/17 05:06 Room Air 10/21/17 04:15 99.8 88 16 111/53 100 Room Air 99.8 10/21/17 03:44 99.8 88 16 111/53 100 Room Air 99.8 10/20/17 22:46 102.9 111 16 102/58 92 Room Air 102.9 Intake and Output 10/20/17 10/21/17 19:00 07:00 Intake Total 0 ml Output Total 400 ml Balance -400 ml Intake Oral 0 ml Output Urine Total 400 ml Laboratory Tests Test 10/20/17 23:23 White Blood Count 18.8 K/UL (4.8-10.8) H Red Blood Count 4.20 M/UL (4.70-6.10) L Hemoglobin 11.0 G/DL (14.2-18.0) L Hematocrit 33.5 % (42.0-52.0) L Mean Corpuscular Volume 80 FL (80-99) Mean Corpuscular Hemoglobin 26.1 PG (27.0-31.0) L Mean Corpuscular Hemoglobin Concent 32.8 G/DL (32.0-36.0) Red Cell Distribution Width 14.6 % (11.6-14.8) Platelet Count 519 K/UL (150-450) H Mean Platelet Volume 6.8 FL (6.5-10.1) Neutrophils (%) (Auto) % (45.0-75.0) Lymphocytes (%) (Auto) % (20.0-45.0) Monocytes (%) (Auto) % (1.0-10.0) Eosinophils (%) (Auto) % (0.0-3.0) Basophils (%) (Auto) % (0.0-2.0) Prothrombin Time 10.7 SEC (9.30-11.50) Prothromb Time International Ratio 1.0 (0.9-1.1) Activated Partial Thromboplast Time 28 SEC (23-33) Urine Color Pale yellow Urine Appearance Cloudy Urine pH 5 (4.5-8.0) Urine Specific [place] 1.015 (1.005-1.035) Urine Protein 3+ (NEGATIVE) H Urine Glucose (UA) Negative (NEGATIVE) Urine Ketones Negative (NEGATIVE) Urine Occult Blood 5+ (NEGATIVE) H Urine Nitrite Positive (NEGATIVE) H Urine Bilirubin Negative (NEGATIVE) Urine Urobilinogen Normal MG/DL (0.0-1.0) Urine Leukocyte Esterase 3+ (NEGATIVE) H Urine RBC Tntc /HPF (0 - 0) H Urine WBC Tntc /HPF (0 - 0) H Urine Squamous Epithelial Cells None /LPF (NONE/OCC) Urine Bacteria Many /HPF (NONE) H Sodium Level 138 MMOL/L (136-145) Potassium Level 3.8 MMOL/L (3.5-5.1) Chloride Level 101 MMOL/L (98-107) Carbon Dioxide Level 24 MMOL/L (21-32) Anion Gap 13 mmol/L (5-15) Blood Urea Nitrogen 94 mg/dL (7-18) H Creatinine 2.7 MG/DL (0.55-1.30) H Estimat Glomerular Filtration Rate mL/min (>60) Glucose Level 181 MG/DL (74-106) H Lactic Acid Level 1.00 mmol/L (0.4-2.0) Calcium Level 9.1 MG/DL (8.5-10.1) Total Bilirubin 0.3 MG/DL (0.2-1.0) Aspartate Amino Transf (AST/SGOT) 95 U/L (15-37) H Alanine Aminotransferase (ALT/SGPT) 136 U/L (12-78) H Alkaline Phosphatase 98 U/L (46-116) Total Creatine Kinase 12 U/L (26-308) L Creatine Kinase MB < 0.5 NG/ML (0.0-3.6) Creatine Kinase MB Relative Index 4.1 Troponin I 0.004 ng/mL (0.000-0.056) Total Protein 8.7 G/DL (6.4-8.2) H Albumin 2.4 G/DL (3.4-5.0) L Globulin 6.3 g/dL Albumin/Globulin Ratio 0.4 (1.0-2.7) L Height (Feet): 5 Height (Inches): 8.00 Weight (Pounds): 120 Medications Current Medications Medications (Trade) Dose Ordered Sig/Nicole Route PRN Reason Start Time Stop Time Status Last Admin Dose Admin Acetaminophen (Tylenol) 650 mg Q4H PRN ORAL fever 10/21/17 07:30 11/20/17 07:29 Albuterol/ Ipratropium (Albuterol/ Ipratropium) 3 ml EVERY 4 HOURS PRN HHN Shortness of Breath 10/21/17 07:30 10/26/17 07:29 Cefepime HCl 1 gm/ Dextrose 55 ml @ 110 mls/hr Q24H IVPB 10/21/17 08:00 10/28/17 07:59 10/21/17 09:17 Heparin Sodium (Porcine) (Heparin 5000 units/ml) 5,000 units EVERY 12 HOURS SUBQ 10/21/17 09:00 11/20/17 08:59 10/21/17 09:20 Morphine Sulfate (Morphine Sulfate) 2 mg EVERY 4 HOURS PRN IVP Moderate Pain (Pain Scale 4-6) 10/21/17 07:30 10/28/17 07:29 Ondansetron HCl (Zofran) 4 mg Q6H PRN IVP Nausea & Vomiting 10/21/17 07:30 11/20/17 07:29 Phenazopyridine HCl (Pyridium) 100 mg DAILY PRN ORAL dysuria 10/21/17 07:30 11/20/17 07:29 Polyethylene Glycol (Miralax) 17 gm DAILYPRN PRN ORAL Constipation 10/21/17 07:30 11/20/17 07:29 Tamsulosin HCl (Flomax) 0.4 mg BEDTIME ORAL 10/21/17 21:00 11/20/17 20:59 Temazepam (Restoril) 15 mg HSPRN PRN ORAL Insomnia 10/21/17 07:30 10/28/17 07:29 Vancomycin HCl 500 mg/Dextrose 110 ml @ 110 mls/hr Q24H IVPB 10/22/17 09:00 10/27/17 08:59 Vancomycin HCl 1 gm/Dextrose 275 ml @ 183.3 mls/ hr ONCE ONCE IVPB 10/21/17 09:30 10/21/17 11:00 10/21/17 10:05 Assessment/Plan Problem List: (1) Sepsis ICD Codes: A41.9 - Sepsis, unspecified organism SNOMED: 48688868 Qualifiers: Qualified Codes: A41.9 - Sepsis, unspecified organism (2) COPD (chronic obstructive pulmonary disease) ICD Codes: J44.9 - Chronic obstructive pulmonary disease, unspecified SNOMED: 28781085 (3) ARF (acute renal failure) ICD Codes: N17.9 - Acute kidney failure, unspecified SNOMED: 62813658 Qualifiers: Qualified Codes: N17.9 - Acute kidney failure, unspecified (4) Severe protein-calorie malnutrition ICD Codes: E43 - Unspecified severe protein-calorie malnutrition SNOMED: 797791465 Assessment/Plan arreaga cultures iv fluids iv abx check electrolytes renal fu/u wound care respiratory treatment titrate fio2 to sat of 92% Margie Britton MD Oct 21, 2017 10:44
[2017-10-21 11:22] LABS: APPEARANCE,URINE SLIGHTLY CLOUDY; BILIRUBIN, URINE NEGATIVE (NEGATIVE); COLOR,URINE PALE YELLOW; GLUCOSE, URINE (UA) NEGATIVE (NEGATIVE); KETONES,URINE NEGATIVE (NEGATIVE); LEUKOCYTE ESTERASE ,URINE 3+ (NEGATIVE); NITRITE,URINE NEGATIVE (NEGATIVE); PH,URINE 5 (4.5-8.0); PROTEIN,URINE 2+ (NEGATIVE); UROBILINOGEN,URINE NORMAL MG/DL (0.0-1.0)
[2017-10-21 11:23] LABS: CREATINE KINASE 22 U/L (26-308)
[2017-10-21 12:17] VITALS: BP 96/40
--- NOTE | 2017-10-21 12:47 | General Progress Note ---
Progress Note Progress Note [id number] full consult dictated thanks Mesha Day MD Oct 21, 2017 12:47
--- NOTE | 2017-10-21 15:38 | Diagnostic Imaging Report ---
Indication: Shortness of breath Technique: XRAY Chest 1v Comparison: 09/26/2017 Findings: Heart size and mediastinal contours are stable compared to the prior exam. Atherosclerotic calcifications again noted in the aortic arch. There is no definite focal airspace consolidation, pleural effusion or pneumothorax. Degenerative spine and shoulders. Impression: No definite focal consolidation, pleural effusion or pneumothorax.
[2017-10-21 15:56] VITALS: BP 113/42
[2017-10-21] MEDS ORDERED: Amikacin Rx to dose MISC ONE (18:15)
--- NOTE | 2017-10-21 18:18 | Consultation ---
History of Present Illness General Date patient seen: Oct 21, 2017 Chief Complaint: Male Urogenital Problems Present Illness HPI 77 y/o M with hx of diabetes, BPH, chronic shoulder dislocation, dementia, COPD , [facility] resident presents to ED on 10/21 with fever, penile erythema. In ED found to have JOVANI, fever Denies n/v, chest pain, trauma Of note, patient admitted here on Mid September 2017 with difficulty urinating, weakness and leukocytosis; foudn to have MDR UTI Also admitted on July 2017 for sepsis and MDR Proteus UTI. Allergies: Coded Allergies: No Known Allergies (Unverified , 07/19/17) Medication History Scheduled Ascorbic Acid* (Vitamin C*), 500 MG ORAL DAILY, (Reported) Docusate Sodium* (Docusate Sodium*), 100 MG ORAL TWICE A DAY, (Reported) Ertapenem Sodium* (INVanz*), 1 GM IVPB Q24H, (Reported) Multivitamin With Minerals (Multivitamins With Minerals*), 1 TAB ORAL DAILY, ( Reported) Nitrofurantoin Macrocrystal (Nitrofurantoin), 100 MG PO BID, (Reported) Tamsulosin Hcl (Tamsulosin Hcl*), 0.4 MG ORAL BEDTIME, (Reported) Trimethoprim/Sulfamethoxazole 160/800* (Bactrim Ds Tablet*), 1 TAB ORAL Q12H Zinc Sulfate (Zinc Sulfate*), 220 MG ORAL DAILY, (Reported) Scheduled PRN Acetaminophen (Acetaminophen), 650 MG ORAL Q4HR PRN for Mild Pain/Temp > 100.5, (Reported) Hydrocodone Bit/Acetaminophen 5-325* ([place] 5-325 Tablet*), 1 TAB ORAL Q4H PRN for Moderate Pain (Pain Scale 4-6), (Reported) Melatonin (Melatonin), 3 MG PO for Insomnia, (Reported) Ondansetron* (Zofran*), 4 MG ORAL Q6H PRN for Nausea & Vomiting, (Reported) Patient History Healthcare decision maker Resuscitation status Full Code Advanced Directive on File Patient History Narrative Pmhx: as above Shx: Denies: smoking Fhx: non contributory Review of Systems All Other Systems: negative except mentioned in HPI Physical Exam Physical Exam Narrative General Appearance: WD/WN Lines, tubes and drains: peripheral HEENT: normocephalic, atraumatic Neck: non-tender, normal alignment Respiratory/Chest: chest wall non-tender, lungs clear Cardiovascular/Chest: normal peripheral pulses Abdomen: normal bowel sounds, non tender Genitourinary/Rectal: Penile erythema and mod TTP, mild swelling, no drainage, no necrosis, no testicular enlargement Extremities: normal range of motion Skin Exam: normal pigmentation Last 24 Hour Vital Signs Date Time Temp Pulse Resp B/P (MAP) Pulse Ox O2 Delivery O2 Flow Rate FiO2 10/21/17 15:56 99.1 91 18 113/42 (65) 96 99.1 10/21/17 12:17 98.1 89 18 96/40 (58) 96 98.1 10/21/17 12:00 88 10/21/17 09:00 Room Air 10/21/17 08:00 88 10/21/17 08:00 99.1 88 18 106/54 (71) 95 99.1 10/21/17 05:06 Room Air 10/21/17 04:15 99.8 88 16 111/53 100 Room Air 99.8 10/21/17 03:44 99.8 88 16 111/53 100 Room Air 99.8 10/20/17 22:46 102.9 111 16 102/58 92 Room Air 102.9 Intake and Output 10/20/17 10/21/17 19:00 07:00 Intake Total 0 ml Output Total 400 ml Balance -400 ml Intake Oral 0 ml Output Urine Total 400 ml Laboratory Tests Test 10/20/17 23:23 10/21/17 08:00 10/21/17 10:10 10/21/17 13:05 White Blood Count 18.8 K/UL (4.8-10.8) H Red Blood Count 4.20 M/UL (4.70-6.10) L Hemoglobin 11.0 G/DL (14.2-18.0) L Hematocrit 33.5 % (42.0-52.0) L Mean Corpuscular Volume 80 FL (80-99) Mean Corpuscular Hemoglobin 26.1 PG (27.0-31.0) L Mean Corpuscular Hemoglobin Concent 32.8 G/DL (32.0-36.0) Red Cell Distribution Width 14.6 % (11.6-14.8) Platelet Count 519 K/UL (150-450) H Mean Platelet Volume 6.8 FL (6.5-10.1) Neutrophils (%) (Auto) % (45.0-75.0) Lymphocytes (%) (Auto) % (20.0-45.0) Monocytes (%) (Auto) % (1.0-10.0) Eosinophils (%) (Auto) % (0.0-3.0) Basophils (%) (Auto) % (0.0-2.0) Prothrombin Time 10.7 SEC (9.30-11.50) Prothromb Time International Ratio 1.0 (0.9-1.1) Activated Partial Thromboplast Time 28 SEC (23-33) Urine Color Pale yellow Pale yellow Urine Appearance Cloudy Slightly cloudy Urine pH 5 (4.5-8.0) 5 (4.5-8.0) Urine Specific [place] 1.015 (1.005-1.035) 1.010 (1.005-1.035) Urine Protein 3+ (NEGATIVE) H 2+ (NEGATIVE) H Urine Glucose (UA) Negative (NEGATIVE) Negative (NEGATIVE) Urine Ketones Negative (NEGATIVE) Negative (NEGATIVE) Urine Occult Blood 5+ (NEGATIVE) H 2+ (NEGATIVE) H Urine Nitrite Positive (NEGATIVE) H Negative (NEGATIVE) Urine Bilirubin Negative (NEGATIVE) Negative (NEGATIVE) Urine Urobilinogen Normal MG/DL (0.0-1.0) Normal MG/DL (0.0-1.0) Urine Leukocyte Esterase 3+ (NEGATIVE) H 3+ (NEGATIVE) H Urine RBC Tntc /HPF (0 - 0) H 5-10 /HPF (0 - 0) H Urine WBC Tntc /HPF (0 - 0) H 30-40 /HPF (0 - 0) H Urine Squamous Epithelial Cells None /LPF (NONE/OCC) Occasional /LPF Urine Bacteria Many /HPF (NONE) H Moderate /HPF (NONE) H Sodium Level 138 MMOL/L (136-145) Potassium Level 3.8 MMOL/L (3.5-5.1) Chloride Level 101 MMOL/L (98-107) Carbon Dioxide Level 24 MMOL/L (21-32) Anion Gap 13 mmol/L (5-15) Blood Urea Nitrogen 94 mg/dL (7-18) H Creatinine 2.7 MG/DL (0.55-1.30) H Estimat Glomerular Filtration Rate mL/min (>60) Glucose Level 181 MG/DL (74-106) H Lactic Acid Level 1.00 mmol/L (0.4-2.0) Calcium Level 9.1 MG/DL (8.5-10.1) Total Bilirubin 0.3 MG/DL (0.2-1.0) Aspartate Amino Transf (AST/SGOT) 95 U/L (15-37) H Alanine Aminotransferase (ALT/SGPT) 136 U/L (12-78) H Alkaline Phosphatase 98 U/L (46-116) Total Creatine Kinase 12 U/L (26-308) L 22 U/L (26-308) L Creatine Kinase MB < 0.5 NG/ML (0.0-3.6) Creatine Kinase MB Relative Index 4.1 Troponin I 0.004 ng/mL (0.000-0.056) Total Protein 8.7 G/DL (6.4-8.2) H Albumin 2.4 G/DL (3.4-5.0) L Globulin 6.3 g/dL Albumin/Globulin Ratio 0.4 (1.0-2.7) L Uric Acid 8.0 MG/DL (2.6-7.2) H Urine Amorphous Sediment Few /LPF (NONE) H Urine Eosinophils None seen Urine Random Sodium 42 mmol/L (20-110) Urine Potassium Timed 20 mmol/L (12-62) Urine Random Creatinine Pending Urine Random Microalbumin Pending Urine Random Total Protein 75 MG/DL (< 11.9) H Urine Creatinine 49.7 MG/DL (30.0-125.0) Urine Microalbumin/Creatinine Ratio Pending Height (Feet): 5 Height (Inches): 8.00 Weight (Pounds): 120 Medications Current Medications Medications (Trade) Dose Ordered Sig/Nicole Route PRN Reason Start Time Stop Time Status Last Admin Dose Admin Acetaminophen (Tylenol) 650 mg Q4H PRN ORAL fever 10/21/17 19:30 11/20/17 07:29 Albuterol/ Ipratropium (Albuterol/ Ipratropium) 3 ml Q4H PRN HHN Shortness of Breath 10/21/17 16:45 10/26/17 16:44 Cefepime HCl 1 gm/ Dextrose 55 ml @ 110 mls/hr Q24H IVPB 10/22/17 08:00 10/28/17 07:59 Heparin Sodium (Porcine) (Heparin 5000 units/ml) 5,000 units EVERY 12 HOURS SUBQ 10/21/17 21:00 11/20/17 08:59 Morphine Sulfate (Morphine Sulfate) 2 mg Q4H PRN IVP Moderate Pain (Pain Scale 4-6) 10/21/17 17:00 10/28/17 16:59 Ondansetron HCl (Zofran) 4 mg Q6H PRN IVP Nausea & Vomiting 10/21/17 17:00 11/20/17 16:59 Phenazopyridine HCl (Pyridium) 100 mg DAILYPRN PRN ORAL dysuria 10/22/17 09:00 11/21/17 08:59 Polyethylene Glycol (Miralax) 17 gm DAILYPRN PRN ORAL Constipation 10/22/17 07:30 11/20/17 07:29 Tamsulosin HCl (Flomax) 0.4 mg BEDTIME ORAL 10/21/17 21:00 11/20/17 20:59 Temazepam (Restoril) 15 mg HSPRN PRN ORAL Insomnia 10/21/17 21:00 10/28/17 20:59 Vancomycin HCl 500 mg/Dextrose 110 ml @ 110 mls/hr Q24H IVPB 10/22/17 09:00 10/27/17 08:59 Assessment/Plan Assessment/Plan Abx: IV Vanco 10/21- Cefepime 10/21- Ceftriaxone x1 10/21 Assessment: SEvere Sepsis- likely 2ry to UTI and penile cellulitis- r/o bacteremia- r/o MDRO (hx of it) -u/a wbc 30-40, nit -, leuk +3; ucx p -Bcx p -CXR: No definite focal consolidation, pleural effusion or pneumothorax. Penile cellulitis- monitor closely for Lei gangrene; at present not evidence Recent Probable UTI 09/2017, s/p Rx (+difficulty urination, leukocytosis) -u/a wbc 30-40, nit neg, leuk +3; ucx >100K P. stuarti (R Amp, ancef, Genta; I Cipro/levo, Zosyn; CEftriaxone reported as S- however Anthony 8 0 ?resistant), S. Meropenem - hx of UTI 07/2017: MDR Proteus mirabilis BPH COPD DM2 cachexia chronic left shoulder dislocation Dementia [facility] resident Plan: -Continue IV Vancomycin #1 for now -august d/c soon if no gram positive growth -Switch CEfepime to Meropenem given prior MDR UTI and give one time dose of AMikacin (as patient has had prior carbapenem exposure in the last few months) -10/02 SP Ertapenem #5 -09/27 SP Meropenem #2 -09/24 SP Keflex and Ertapenem x1 -07/2017 SP Ertapenem #5 -f/u Renal US -Testicular US -Monitor closely penile area; if worsening, obtain URology evaluation -f/u cx -Monitor CBC/CMP, temperatures Thank you for this consultation. Will continue to follow along with you. Discussed with PAMELA. Radha Barron M.D. Oct 21, 2017 18:18
[2017-10-21 20:00] VITALS: BP 113/59
[2017-10-21] MEDS ORDERED: Tamsulosin 0.4mg cap ORAL SCH (21:00)
[2017-10-21] MEDS ORDERED: NS IVPB SCH (21:00)
[2017-10-21] MEDS ORDERED: MEROPENEM IVPB SCH (21:00)
[2017-10-21] MEDS ORDERED: Meropenem 500 MG in NS 55 ML IV SCH (21:00)
[2017-10-21] MEDS: Tamsulosin 0.4mg cap ORAL SCH (21:40)
[2017-10-21] MEDS: Heparin 5000 units/ml inj SUBQ SCH (21:46)
--- NOTE | 2017-10-21 21:46 | History and Physical Report ---
DATE OF ADMISSION: 10/21/2017 CONSULTANTS: 1. Gino James M.D. 2. Margie Britton M.D. 3. Lea Dodd M.D. CHIEF COMPLAINT: UTI, sepsis, leukocytosis and weakness. BRIEF HISTORY: This is a 77-year-old male, who lives at [facility], presented with increased weakness and decubitus ulcers and was diagnosed with UTI, sepsis, leukocytosis, decubitus ulcer and admitted to medical floor for further treatment. Currently, lethargic, in bed, refusing to answer questions. REVIEW OF SYSTEMS: Unavailable. PAST MEDICAL HISTORY: Decubitus ulcer, anemia, weakness, COPD, cachexia, malnutrition and anemia. PAST SURGICAL HISTORY: Unknown. MEDICATIONS: Vancomycin, Flomax, heparin, cefepime, albuterol, Tylenol, morphine, Zofran, and temazepam. ALLERGIES: Denies. SOCIAL HISTORY: Unable to obtain secondary to the patient's refusal. OBJECTIVE: GENERAL: Lethargic, in bed, refusing to answer questions. VITAL SIGNS: Temperature 99 degrees, pulse 88, respirations 18, and blood pressure 106/54. CARDIOVASCULAR: No murmur. LUNGS: Distant and clear. ABDOMEN: Bowel sounds positive. Nontender. Nondistended. EXTREMITIES: No cyanosis or edema. NEUROLOGIC: The patient moves all extremities, slightly weak. LABORATORY AND DIAGNOSTIC DATA: White count 18.8, hemoglobin and hematocrit 11/33, and platelets 519. BMP shows BUN and creatinine 94/2.7 and glucose 181. AST and ALT 95/136 and albumin 2.4. INR is 1.0. Urinalysis show 2+ glucose and 3+ leukocyte esterase. ASSESSMENT: 1. Urinary tract infection. 2. Sepsis. 3. Leukocytosis. 4. Weakness. 5. Renal insufficiency. 6. Decubitus ulcer. 7. Anemia. PLAN: 1. Continue previous medications. 2. IV fluids. 3. Antibiotics per Infectious Disease. 4. OT, PT, and dietary evaluation. 5. Wound care. 6. Dr. James, Dr. Britton, Dr. Dodd, and Dr. Rouse to consult. Samir Cramer D.O. DR: HILLARY JOB#: [id number] CC:
[2017-10-21] MEDS ORDERED: Amikacin 400 MG in NS 110 ML IV SCH (22:00)
--- NOTE | 2017-10-21 22:31 | Consultation ---
DATE OF CONSULTATION: 10/21/2017 DATE OF ADMISSION: October 21, 2017 REFERRING PHYSICIAN: Samir Cramer D.O. REASON FOR CONSULTATION: 1. Acute kidney injury. 2. Volume depletion/dehydration. HISTORY OF PRESENT ILLNESS: The patient is a 77-year-old gentleman with known diabetes, dementia, and COPD. He was brought from his detention with concern over fever and redness to his penis. When it was noted that he had abnormal laboratories, his BUN was 94 with a creatinine of 2.7. Prior to this last month, his creatinine was within the normal range. The patient is now resting comfortably. IV antibiotics have been initiated. PAST MEDICAL HISTORY: 1. COPD. 2. Dementia. 3. Diabetes mellitus. 4. Protein-calorie malnutrition. 5. BPH. ALLERGIES: No known drug allergies. PAST SURGICAL HISTORY: Noncontributory. FAMILY HISTORY: Unknown. PHYSICAL EXAMINATION: VITAL SIGNS: Blood pressure 106/54, respiratory rate 18, pulse 88, temperature 99.1, 100% on room air. GENERAL: The patient is awake, in no overt distress. HEENT: Extraocular muscles intact. No lymphadenopathy noted. CARDIOVASCULAR: S1 and S2. No rubs or gallops. PULMONARY: Mild diffuse rhonchi. Fair air movement in all lung johnson. ABDOMEN: Nondistended and nontender. EXTREMITIES: No edema noted. LABORATORY AND DIAGNOSTIC DATA: Labs dated October 20, 2017 at 11:30 p.m., sodium 138, potassium 3.8, BUN 94, creatinine 2.7. AST and ALT 95, 136 respectively. Troponin 0.004. White cell count 18.8, hemoglobin 11, and platelet count 519. ASSESSMENT: 1. Acute kidney injury at this time, most likely secondary to component of multifactorial. 2. Acute tubular necrosis from underlying volume depletion, relative hypotension, and infection. Continue IV hydration. Renal ultrasound to rule out possibility of any underlying obstructive uropathy. We will repeat laboratories in the morning. Hopefully with IV antibiotics and hydration, renal function will return back to normal range. 3. Sepsis secondary to urinary tract infection. Continue IV fluids with IV antibiotics. Defer management to primary care physician. 4. Chronic obstructive pulmonary disease. Pulmonary has been consulted. Dr. Britton to evaluate and manage. 5. Dehydration. Continue IV fluids. Daily evaluation. Let me take this opportunity to thank Dr. Samir Cramer, for allowing me to assist in care of this patient. Joaquín Silverio MD DR: Enmanuel JOB#: [id number] CC: ANA MARIA
--- NOTE | 2017-10-21 22:40 | Diagnostic Imaging Report ---
EXAM: US Retroperitoneal Limited, Renal CLINICAL HISTORY: RENAL-A TECHNIQUE: Real-time ultrasound of the retroperitoneum (limited) with image documentation. COMPARISON: No relevant prior studies available. FINDINGS: Right kidney: Right kidney measures up to 11.6 cm. No stones. No hydronephrosis. Left kidney: Nonobstructing calculi within the left kidney. Left kidney measures up to 12.3 cm. Urinary bladder: Unremarkable. IMPRESSION: No acute findings.
--- NOTE | 2017-10-21 23:16 | Consultation ---
DATE OF CONSULTATION: 10/21/2017 NEPHROLOGY CONSULTATION CONSULTING PHYSICIAN: Mesha Day M.D. REFERRING PHYSICIAN: Samir Cramer D.O. REASON FOR CONSULTATION: Acute renal failure. HISTORY OF PRESENT ILLNESS: The patient is an unfortunate 77-year-old male with past medical history significant for history of diabetes, hypertension, COPD, dyslipidemia, who was brought in to [facility] for evaluation of penile redness and pain and also fever. The patient denies having any problem passing out urine. The patient was consequently admitted in the hospital and found to have a creatinine of 2. I was called for management of renal disease and electrolyte imbalance. PAST MEDICAL HISTORY: 1. History of cardiac arrhythmia. 2. History of COPD. 3. History of . 4. History of BPH. 5. History of hypertension. 6. History of diabetes. PAST SURGICAL HISTORY: None. MEDICATIONS: 1. Ascorbic acid 500 mg p.o. daily. 2. Colace 100 mg p.o. daily. 3. Ertapenem 1 g IV. 4. M.V.I. one tablet p.o. daily. 5. Nitrofurantoin 100 mg p.o. b.i.d. 6. Flomax 0.4 mg p.o. daily. 7. Bactrim 160/800 one tablet daily. 8. Zinc sulfate 220 mg p.o. daily. 9. Tylenol 650 q.6 h. p.r.n. pain. 10. Melatonin 3 p.o. nightly. 11. Zofran 4 mg p.r.n. nausea or vomiting. ALLERGIES: No known drug allergies. FAMILY HISTORY: Noncontributory. REVIEW OF SYSTEMS: GENERAL: He complained of generalized weakness. He had fever and chills and also weight loss. PULMONARY: Denies any shortness of breath, cough, or sputum. CARDIOVASCULAR: Denies any chest pain or palpitations. GASTROINTESTINAL: Denies any nausea, vomiting, diarrhea, hematemesis, or hematochezia. GENITOURINARY: Denies any dysuria, frequency, or hematuria. MUSCULOSKELETAL: Denies any weakness or numbness. PHYSICAL EXAMINATION: VITAL SIGNS: The patient has temperature of 98. In the ER, the patient had a temperature as high as 102.9. Respiratory rate of 18. HEAD AND NECK: No JVP. No LAD. No thyromegaly. Extraocular movement intact. Pupils are reactive to light and accommodation. LUNGS: Clear to auscultation. CARDIAC: Regular rate and rhythm. S1 and S2. No murmur. No rub. ABDOMEN: Soft, nontender, and nondistended. EXTREMITIES: No edema. No clubbing. No cyanosis. LABORATORY AND DIAGNOSTIC DATA: The patient had WBC count of 18,000, hemoglobin of 11.1, hematocrit of 33.5, and platelet count of 59,000. Chemistry reveals sodium 138, potassium 3.8, chloride 101, and bicarb 24. BUN was 94 and creatinine was 2.7. Glucose of 181. Calcium of 9.5. AST of 95 and ALT of 136. Total protein of 8.7. Albumin of 2.4. UA revealed specific gravity of 1.010, pH of 5, protein 2+, leukocyte esterase 3+, rbc 5 to 10, wbc 30 to 40, bacteria many, and random urine sodium of 42. ASSESSMENT: 1. Acute renal failure. The etiologies of acute renal failure are including ATN due to unstable hemodynamics versus obstructive uropathy. 2. 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 3. Malnutrition. 4. Penile cellulitis and infection. PLAN: Plan for the patient is to discontinue the Bactrim. I would discontinue the nitrofurantoin and start the patient on IV fluids. Random urine sodium and creatinine to calculate fractional excretion of sodium. Check the random urine protein-creatinine ratio to calculate the proteinuria. Check the urine eosinophil and monitor renal function and electrolytes closely. Replace electrolytes as needed. Again, I would like to thank Dr. Cramer and Dr. Britton for allowing me to participate in the care of this patient. Mesha Day M.D. DR: ARON JOB#: [id number] CC:
--- NOTE | 2017-10-21 23:40 | Consultation ---
History of Present Illness General Date patient seen: Oct 21, 2017 Chief Complaint: Male Urogenital Problems Present Illness HPI 77-year-old male, who lives at [facility] and i am well familiar with presented with increased weakness and decubitus ulcers and was diagnosed with UTI, sepsis, leukocytosis, decubitus ulcer. the pt pw waxing and waning of consciousness the pt was uncooperative and unable to provide hx, Allergies: Coded Allergies: No Known Allergies (Unverified , 07/19/17) Medication History Scheduled Ascorbic Acid* (Vitamin C*), 500 MG ORAL DAILY, (Reported) Docusate Sodium* (Docusate Sodium*), 100 MG ORAL TWICE A DAY, (Reported) Ertapenem Sodium* (INVanz*), 1 GM IVPB Q24H, (Reported) Multivitamin With Minerals (Multivitamins With Minerals*), 1 TAB ORAL DAILY, ( Reported) Nitrofurantoin Macrocrystal (Nitrofurantoin), 100 MG PO BID, (Reported) Tamsulosin Hcl (Tamsulosin Hcl*), 0.4 MG ORAL BEDTIME, (Reported) Trimethoprim/Sulfamethoxazole 160/800* (Bactrim Ds Tablet*), 1 TAB ORAL Q12H Zinc Sulfate (Zinc Sulfate*), 220 MG ORAL DAILY, (Reported) Scheduled PRN Acetaminophen (Acetaminophen), 650 MG ORAL Q4HR PRN for Mild Pain/Temp > 100.5, (Reported) Hydrocodone Bit/Acetaminophen 5-325* ([place] 5-325 Tablet*), 1 TAB ORAL Q4H PRN for Moderate Pain (Pain Scale 4-6), (Reported) Melatonin (Melatonin), 3 MG PO for Insomnia, (Reported) Ondansetron* (Zofran*), 4 MG ORAL Q6H PRN for Nausea & Vomiting, (Reported) Patient History Limited by: medical condition History Provided By: Patient, Medical Record, PMD Healthcare decision maker Resuscitation status Full Code Advanced Directive on File Past Medical/Surgical History Past Medical/Surgical History: (1) Chronic heel ulcer (2) MDRO (multiple drug resistant organisms) resistance (3) Weak (4) Decubitus ulcer, heel, left, unstageable (5) Proteinuria (6) ARF (acute renal failure) (7) Phimosis/adherent prepuce (8) UTI (urinary tract infection) (9) COPD (chronic obstructive pulmonary disease) (10) Cachexia (11) Arrhythmia (12) Severe protein-calorie malnutrition (13) BPH (benign prostatic hyperplasia) (14) Decubitus ulcer of right heel, unstageable (15) Anemia (16) Sepsis Review of Systems Psychiatric: Reports: anxiety, hallucinations Physical Exam General Appearance: no apparent distress, lethargic, confused Last 24 Hour Vital Signs Date Time Temp Pulse Resp B/P (MAP) Pulse Ox O2 Delivery O2 Flow Rate FiO2 10/21/17 21:38 99 20 Room Air 21 10/21/17 20:00 96.7 102 20 113/59 (77) 96 96.7 10/21/17 15:56 99.1 91 18 113/42 (65) 96 99.1 10/21/17 12:17 98.1 89 18 96/40 (58) 96 98.1 10/21/17 12:00 88 10/21/17 09:00 Room Air 10/21/17 08:00 88 10/21/17 08:00 99.1 88 18 106/54 (71) 95 99.1 10/21/17 05:06 Room Air 10/21/17 04:15 99.8 88 16 111/53 100 Room Air 99.8 10/21/17 03:44 99.8 88 16 111/53 100 Room Air 99.8 Intake and Output 10/20/17 10/21/17 19:00 07:00 Intake Total 0 ml Output Total 400 ml Balance -400 ml Intake Oral 0 ml Output Urine Total 400 ml Laboratory Tests Test 10/21/17 08:00 10/21/17 10:10 10/21/17 13:05 Uric Acid 8.0 MG/DL (2.6-7.2) H Total Creatine Kinase 22 U/L (26-308) L Urine Color Pale yellow Urine Appearance Slightly cloudy Urine pH 5 (4.5-8.0) Urine Specific [place] 1.010 (1.005-1.035) Urine Protein 2+ (NEGATIVE) H Urine Glucose (UA) Negative (NEGATIVE) Urine Ketones Negative (NEGATIVE) Urine Occult Blood 2+ (NEGATIVE) H Urine Nitrite Negative (NEGATIVE) Urine Bilirubin Negative (NEGATIVE) Urine Urobilinogen Normal MG/DL (0.0-1.0) Urine Leukocyte Esterase 3+ (NEGATIVE) H Urine RBC 5-10 /HPF (0 - 0) H Urine WBC 30-40 /HPF (0 - 0) H Urine Squamous Epithelial Cells Occasional /LPF Urine Amorphous Sediment Few /LPF (NONE) H Urine Bacteria Moderate /HPF (NONE) H Urine Eosinophils None seen Urine Random Sodium 42 mmol/L (20-110) Urine Potassium Timed 20 mmol/L (12-62) Urine Random Creatinine Pending Urine Random Microalbumin Pending Urine Random Total Protein 75 MG/DL (< 11.9) H Urine Creatinine 49.7 MG/DL (30.0-125.0) Urine Microalbumin/Creatinine Ratio Pending Height (Feet): 5 Height (Inches): 8.00 Weight (Pounds): 120 Medications Current Medications Medications (Trade) Dose Ordered Sig/Nicole Route PRN Reason Start Time Stop Time Status Last Admin Dose Admin Acetaminophen (Tylenol) 650 mg Q4H PRN ORAL fever 10/21/17 19:30 11/20/17 07:29 Albuterol/ Ipratropium (Albuterol/ Ipratropium) 3 ml Q4H PRN HHN Shortness of Breath 10/21/17 16:45 10/26/17 16:44 Heparin Sodium (Porcine) (Heparin 5000 units/ml) 5,000 units EVERY 12 HOURS SUBQ 10/21/17 21:00 11/20/17 08:59 10/21/17 21:46 Meropenem 500 mg/ Sodium Chloride 55 ml @ 110 mls/hr Q12HR IV 10/21/17 21:00 10/26/17 20:59 Morphine Sulfate (Morphine Sulfate) 2 mg Q4H PRN IVP Moderate Pain (Pain Scale 4-6) 10/21/17 17:00 10/28/17 16:59 Ondansetron HCl (Zofran) 4 mg Q6H PRN IVP Nausea & Vomiting 10/21/17 17:00 11/20/17 16:59 Phenazopyridine HCl (Pyridium) 100 mg DAILYPRN PRN ORAL dysuria 10/22/17 09:00 11/21/17 08:59 Polyethylene Glycol (Miralax) 17 gm DAILYPRN PRN ORAL Constipation 10/22/17 07:30 11/20/17 07:29 Tamsulosin HCl (Flomax) 0.4 mg BEDTIME ORAL 10/21/17 21:00 11/20/17 20:59 10/21/17 21:40 Temazepam (Restoril) 15 mg HSPRN PRN ORAL Insomnia 10/21/17 21:00 10/28/17 20:59 Vancomycin HCl (Vanco rx to dose) 1 ea DAILY PRN MISC PER RX PROTOCOL 10/21/17 18:30 11/20/17 18:29 Vancomycin HCl 500 mg/Dextrose 110 ml @ 110 mls/hr Q24H IVPB 10/22/17 09:00 10/27/17 08:59 Assessment/Plan Assessment/Plan encephalopathy zyprexa zyprexa prn Xiao Machado MD Oct 21, 2017 23:40
[2017-10-21] MEDS ORDERED: OLANZapine 2.5mg tab ORAL PRN (23:45)
[2017-10-22] VITALS: BP 120/62
--- NOTE | 2017-10-22 03:01 | Consultation ---
DATE OF CONSULTATION: 10/21/2017 UROLOGY CONSULTATION ATTENDING/CONSULTING PHYSICIAN: Samir Cramer D.O. CHIEF COMPLAINT/HISTORY OF PRESENT ILLNESS: I was asked by Dr. Cramer, to evaluate this very pleasant 77-year-old [place] gentleman regarding history of penile swelling and cellulitis. Briefly, the patient has a history of multiple medical issues including dementia, chronic obstructive pulmonary disease, and diabetes, who is brought to the hospital with a history of redness of the penis and fevers. He denies any history of baseline urologic issues or problems, but I am not sure how reliable this is. The patient does take tamsulosin on a regular basis. He was found to have evidence of sepsis and acute renal insufficiency. A Peña catheter in place and I was asked to evaluate the patient. PAST MEDICAL HISTORY: 1. Dementia. 2. Chronic obstructive pulmonary disease. 3. Arrhythmia. 4. Cachexia. 5. BPH. PAST SURGICAL HISTORY: Unknown. MEDICATIONS: Please see chart for current medications and administration details. ALLERGIES: No known drug allergies. SOCIAL HISTORY: Unremarkable for tobacco, alcohol, or drug use. FAMILY HISTORY: Unavailable/noncontributory. REVIEW OF SYSTEMS: A 12-system review of systems was attempted, but it was limited by the patient's mental status and language barrier. It appears to be unremarkable outside what is described above. PHYSICAL EXAMINATION: GENERAL: The patient is an elderly [place] gentleman, awake and alert, somewhat oriented, and in no obvious distress. HEENT: NC/AT. EOMI. NECK: Supple. Full range of motion. Oropharynx clear. CHEST: Within normal limits. ABDOMEN: Soft, nontender, and nondistended. EXTREMITIES: Warm and well perfused. No cyanosis, clubbing, or edema. BACK: No CVA tenderness to percussion. NEUROLOGIC: Grossly nonfocal. GENITOURINARY: Reveals an uncircumcised male phallus. There is some slight swelling and inflammation of the foreskin. There is evidence of phimosis. There is a Peña catheter in place with clear yellow urine output. There is no evidence of Lei gangrene or other abnormalities. There are bilateral descended testes and cord structures. There are no masses or tenderness to palpation. LABORATORY DATA: White blood cell count 18.8, hematocrit 33.5, and platelets 519,000. PT 10.7, INR 1.0, and PTT 28. Sodium 138, potassium 3.8, chloride 101, bicarb 24, BUN 94, creatinine 2.7, and glucose 181. LFTs notable for AST of 95 and ALT of 136. Troponin negative. Urinalysis pending. DIAGNOSTIC IMAGING: Chest x-ray, no focal consolidation, pleural effusion, or pneumothorax. ASSESSMENT AND PLAN: In summary, the patient is a 77-year-old diabetic gentleman, presenting with evidence of balanoposthitis/penile cellulitis. He has a Peña catheter in place and has been placed on triple antibiotic coverage with aztreonam, vancomycin, and cefepime. Physical exam reveals a slightly inflamed and indurated foreskin with baseline phimosis. There is no evidence of Lei or need for surgical intervention. Laboratory data is notable for an elevated white blood cell count. A urinalysis is pending. There is no relevant diagnostic imaging. I agree with continuing this patient on triple antibiotic coverage. It appears that his penile swelling and cellulitis is already improving. There is no evidence of Lei or other process that would require surgical intervention. Assuming he improves, I would continue him on a 10 to 14 days of total antibiotic coverage between IV and p.o. coverage. Thank you for allowing me to participate in the care of this nice gentleman. Please do not hesitate to contact me for any questions that you may further have regarding his care. I will be happy to see him with you as needed. Kolby Brady M.D. DR: CHERRIE JOB#: [id number] CC:
[2017-10-22 04:00] VITALS: BP 106/66
[2017-10-22 07:16] LABS: ALANINE AMINOTRANSFERASE 90 U/L (12-78); ALBUMIN/GLOBULIN RATIO 0.4 (1.0-2.7); ALKALINE PHOSPHATASE 85 U/L (46-116); ANION GAP 8 mmol/L (5-15); ASPARTATE AMINO TRANSFERASE 50 U/L (15-37); BILIRUBIN,TOTAL 0.4 MG/DL (0.2-1.0); BLOOD UREA NITROGEN 43 mg/dL (7-18); CARBON DIOXIDE 25 MMOL/L (21-32); CHLORIDE 113 MMOL/L (98-107); CREATININE 1.4 MG/DL (0.55-1.30); POTASSIUM 3.8 MMOL/L (3.5-5.1); SODIUM 146 MMOL/L (136-145)
[2017-10-22] MEDS ORDERED: Miralax 17gm pkt ORAL PRN (07:30)
--- NOTE | 2017-10-22 07:53 | Pulmonology Progress Note ---
Assessment/Plan Assessment/Plan ASSESSMENT Sepsis UTI acute renal failure/possible ATN on chronic renal insufficiency dehydration penile cellulitis proteinuria protein calorie malnutrition encephalopathy PLAN OF CARE IV fluids antibiotics urine cx + GNR ID eval Pyridium monitor renal parameters lytes, correct electrolytes as needed, avoid nephrotoxic creat trending down nephrology follows urology eval noted per urologist - no evidence of Lei or other process that would require surgical intervention recommend abx treatment for 10-14 days baseline phimoses O2 HHN when necessary pain management DVT prophylaxis bowel regimen supportive care psych follows dietary eval case discussed and evaluated by supervising physician Subjective Allergies: Coded Allergies: No Known Allergies (Unverified , 07/19/17) All Systems: reviewed and negative except above - leukocytosis trengin down afverile creat tytneign down sn and evlaauted by urologst Subjective leukocytosis trending down, afebrile seen and evaluated by urology Objective Last 24 Hour Vital Signs Date Time Temp Pulse Resp B/P (MAP) Pulse Ox O2 Delivery O2 Flow Rate FiO2 10/22/17 04:00 97.9 66 20 106/66 (79) 98 97.9 10/22/17 00:00 97.1 97 20 120/62 (81) 95 97.1 10/21/17 21:38 99 20 Room Air 21 10/21/17 21:00 Room Air 10/21/17 20:00 96.7 102 20 113/59 (77) 96 96.7 10/21/17 15:56 99.1 91 18 113/42 (65) 96 99.1 10/21/17 12:17 98.1 89 18 96/40 (58) 96 98.1 10/21/17 12:00 88 10/21/17 09:00 Room Air 10/21/17 08:00 88 10/21/17 08:00 99.1 88 18 106/54 (71) 95 99.1 Intake and Output 10/21/17 10/22/17 19:00 07:00 Intake Total 330.0 ml Output Total 250 ml Balance 330.0 ml -250 ml IV Total 330.0 ml Output Urine Total 250 ml # Voids 1 # Bowel Movements 1 General Appearance: no acute distress HEENT: normocephalic, atraumatic, anicteric Respiratory/Chest: lungs clear Cardiovascular: normal rate Abdomen: soft, non tender, non distended Genitourinary: other - mildly inflamed and indurated foreskin with baseline phimosis. Extremities: no edema Neurologic/Psychiatric: abnormal gait, alert, responsive Laboratory Tests 10/21/17 08:00: Uric Acid 8.0H, Total Creatine Kinase 22L 10/21/17 10:10: Urine Color Pale yellow, Urine Appearance Slightly cloudy, Urine pH 5, Urine Specific [place] 1.010, Urine Protein 2+H, Urine Glucose (UA) Negative, Urine Ketones Negative, Urine Occult Blood 2+H, Urine Nitrite Negative, Urine Bilirubin Negative, Urine Urobilinogen Normal, Urine Leukocyte Esterase 3+H, Urine RBC 5-10H, Urine WBC 30-40H, Urine Squamous Epithelial Cells Occasional, Urine Amorphous Sediment FewH, Urine Bacteria ModerateH, Urine Eosinophils None seen, Urine Random Sodium 42, Urine Potassium Timed 20 10/21/17 13:05: Urine Random Creatinine [Pending], Urine Random Microalbumin [Pending], Urine Random Total Protein 75H, Urine Creatinine 49.7, Urine Microalbumin/Creatinine Ratio [Pending] 10/22/17 05:50: White Blood Count [Pending], Red Blood Count [Pending], Hemoglobin [Pending], Hematocrit [Pending], Mean Corpuscular Volume [Pending], Mean Corpuscular Hemoglobin [Pending], Mean Corpuscular Hemoglobin Concent [Pending], Red Cell Distribution Width [Pending], Platelet Count [Pending], Mean Platelet Volume [ Pending], Neutrophils (%) (Auto) [Pending], Lymphocytes (%) (Auto) [Pending], Monocytes (%) (Auto) [Pending], Eosinophils (%) (Auto) [Pending], Basophils (%) (Auto) [Pending], Sodium Level 146H, Potassium Level 3.8, Chloride Level 113H, Carbon Dioxide Level 25, Anion Gap 8, Blood Urea Nitrogen 43H, Creatinine 1.4H, Estimat Glomerular Filtration Rate , Glucose Level 145H, Calcium Level 9.0, Total Bilirubin 0.4, Aspartate Amino Transf (AST/SGOT) 50H, Alanine Aminotransferase (ALT/SGPT) 90H, Alkaline Phosphatase 85, Total Protein 7.6, Albumin 2.0L, Globulin 5.6, Albumin/Globulin Ratio 0.4L Current Medications Medications (Trade) Dose Ordered Sig/Nicole Route PRN Reason Start Time Stop Time Status Last Admin Dose Admin Acetaminophen (Tylenol) 650 mg Q4H PRN ORAL fever 10/21/17 19:30 11/20/17 07:29 Albuterol/ Ipratropium (Albuterol/ Ipratropium) 3 ml Q4H PRN HHN Shortness of Breath 10/21/17 16:45 10/26/17 16:44 Heparin Sodium (Porcine) (Heparin 5000 units/ml) 5,000 units EVERY 12 HOURS SUBQ 10/21/17 21:00 11/20/17 08:59 10/21/17 21:46 Meropenem 500 mg/ Sodium Chloride 55 ml @ 110 mls/hr Q12HR IV 10/21/17 21:00 10/26/17 20:59 10/21/17 23:44 Morphine Sulfate (Morphine Sulfate) 2 mg Q4H PRN IVP Moderate Pain (Pain Scale 4-6) 10/21/17 17:00 10/28/17 16:59 Olanzapine (ZyPREXA) 2.5 mg BEDTIME PRN ORAL anxiety 10/21/17 23:45 11/20/17 23:44 Ondansetron HCl (Zofran) 4 mg Q6H PRN IVP Nausea & Vomiting 10/21/17 17:00 11/20/17 16:59 Phenazopyridine HCl (Pyridium) 100 mg DAILYPRN PRN ORAL dysuria 10/22/17 09:00 11/21/17 08:59 Polyethylene Glycol (Miralax) 17 gm DAILYPRN PRN ORAL Constipation 10/22/17 07:30 11/20/17 07:29 Tamsulosin HCl (Flomax) 0.4 mg BEDTIME ORAL 10/21/17 21:00 11/20/17 20:59 10/21/17 21:40 Temazepam (Restoril) 15 mg HSPRN PRN ORAL Insomnia 10/21/17 21:00 10/28/17 20:59 Vancomycin HCl (Vanco rx to dose) 1 ea DAILY PRN MISC PER RX PROTOCOL 10/21/17 18:30 11/20/17 18:29 Vancomycin HCl 500 mg/Dextrose 110 ml @ 110 mls/hr Q24H IVPB 10/22/17 09:00 10/27/17 08:59 Aster Christensen DIRECTOR DRUG Oct 22, 2017 07:52
[2017-10-22 08:00] VITALS: BP 121/52
[2017-10-22] MEDS ORDERED: Cefepime HCl 1 GM in D5W 55 ML IVPB SCH (08:00)
[2017-10-22 08:12] LABS: BASOPHILS % (AUTO) 1.1 % (0.0-2.0); EOSINOPHILS % (AUTO) 1.9 % (0.0-3.0); HEMATOCRIT 29.8 % (42.0-52.0); HEMOGLOBIN 9.6 G/DL (14.2-18.0); LYMPHOCYTES % (AUTO) 13.7 % (20.0-45.0); MEAN CORPUSCULAR VOLUME 81 FL (80-99); MONOCYTES % (AUTO) 6.9 % (1.0-10.0); NEUTROPHILS % (AUTO) 76.4 % (45.0-75.0); PLATELET COUNT 480 K/UL (150-450); RED BLOOD COUNT 3.67 M/UL (4.70-6.10); RED CELL DISTRIBUTION WIDTH 15.4 % (11.6-14.8); WHITE BLOOD COUNT 13.6 K/UL (4.8-10.8)
[2017-10-22] MEDS ORDERED: Vancomycin 500mg/D5W 110ml IVPB SCH ×2 (09:00)
[2017-10-22] MEDS ORDERED: Vancomycin 500 MG in D5W 110 ML IVPB SCH (09:00)
--- NOTE | 2017-10-22 09:02 | General Progress Note ---
Assessment/Plan Problem List: (1) ARF (acute renal failure) ICD Codes: N17.9 - Acute kidney failure, unspecified SNOMED: 00887140 Qualifiers: Qualified Codes: N17.9 - Acute kidney failure, unspecified (2) UTI (urinary tract infection) ICD Codes: N39.0 - Urinary tract infection, site not specified SNOMED: 95943991 Qualifiers: Qualified Codes: N30.00 - Acute cystitis without hematuria (3) Sepsis ICD Codes: A41.9 - Sepsis, unspecified organism SNOMED: 50205140 Qualifiers: Qualified Codes: A41.9 - Sepsis, unspecified organism (4) Weak ICD Codes: R53.1 - Weakness SNOMED: 44809993 (5) Decubitus ulcer, heel, left, unstageable ICD Codes: L89.620 - Pressure ulcer of left heel, unstageable SNOMED: 308536529 (6) Anemia ICD Codes: D64.9 - Anemia, unspecified SNOMED: 779514944 Status: unchanged Assessment/Plan ot pt diet abx wound care cbc bmp am Subjective Constitutional: Reports: weakness Allergies: Coded Allergies: No Known Allergies (Unverified , 07/19/17) All Systems: reviewed and negative except above Subjective sleepy in bed calm Objective Last 24 Hour Vital Signs Date Time Temp Pulse Resp B/P (MAP) Pulse Ox O2 Delivery O2 Flow Rate FiO2 10/22/17 08:00 98.1 78 20 121/52 (75) 98 98.1 10/22/17 04:00 97.9 66 20 106/66 (79) 98 97.9 10/22/17 00:00 97.1 97 20 120/62 (81) 95 97.1 10/21/17 21:38 99 20 Room Air 21 10/21/17 21:00 Room Air 10/21/17 20:00 96.7 102 20 113/59 (77) 96 96.7 10/21/17 15:56 99.1 91 18 113/42 (65) 96 99.1 10/21/17 12:17 98.1 89 18 96/40 (58) 96 98.1 10/21/17 12:00 88 Intake and Output 10/21/17 10/22/17 19:00 07:00 Intake Total 330.0 ml Output Total 250 ml Balance 330.0 ml -250 ml IV Total 330.0 ml Output Urine Total 250 ml # Voids 1 # Bowel Movements 1 Laboratory Tests 10/21/17 10:10: Urine Color Pale yellow, Urine Appearance Slightly cloudy, Urine pH 5, Urine Specific [place] 1.010, Urine Protein 2+H, Urine Glucose (UA) Negative, Urine Ketones Negative, Urine Occult Blood 2+H, Urine Nitrite Negative, Urine Bilirubin Negative, Urine Urobilinogen Normal, Urine Leukocyte Esterase 3+H, Urine RBC 5-10H, Urine WBC 30-40H, Urine Squamous Epithelial Cells Occasional, Urine Amorphous Sediment FewH, Urine Bacteria ModerateH, Urine Eosinophils None seen, Urine Random Sodium 42, Urine Potassium Timed 20 10/21/17 13:05: Urine Random Creatinine [Pending], Urine Random Microalbumin [Pending], Urine Random Total Protein 75H, Urine Creatinine 49.7, Urine Microalbumin/Creatinine Ratio [Pending] 10/22/17 05:50: White Blood Count 13.6H, Red Blood Count 3.67L, Hemoglobin 9.6L, Hematocrit 29.8L, Mean Corpuscular Volume 81, Mean Corpuscular Hemoglobin 26.2L, Mean Corpuscular Hemoglobin Concent 32.2, Red Cell Distribution Width 15.4H, Platelet Count 480H, Mean Platelet Volume 6.9, Neutrophils (%) (Auto) 76.4H, Lymphocytes (%) (Auto) 13.7L, Monocytes (%) (Auto) 6.9, Eosinophils (%) (Auto) 1.9, Basophils (%) (Auto) 1.1, Sodium Level 146H, Potassium Level 3.8, Chloride Level 113H, Carbon Dioxide Level 25, Anion Gap 8, Blood Urea Nitrogen 43H, Creatinine 1.4H, Estimat Glomerular Filtration Rate , Glucose Level 145H, Calcium Level 9.0, Total Bilirubin 0.4, Aspartate Amino Transf (AST/SGOT) 50H, Alanine Aminotransferase (ALT/SGPT) 90H, Alkaline Phosphatase 85, Total Protein 7.6, Albumin 2.0L, Globulin 5.6, Albumin/Globulin Ratio 0.4L Height (Feet): 5 Height (Inches): 8.00 Weight (Pounds): 120 General Appearance: lethargic EENT: normal ENT inspection Neck: normal alignment Cardiovascular: normal peripheral pulses, normal rate, regular rhythm Respiratory/Chest: chest wall non-tender, lungs clear, normal breath sounds Abdomen: normal bowel sounds, non tender, soft Extremities: normal inspection Edema: no edema noted Arm (L), no edema noted Arm (R), no edema noted Leg (L), no edema noted Leg (R), no edema noted Pedal (L), no edema noted Pedal (R), no edema noted Generalized Neurologic: motor weakness Skin: normal pigmentation, warm/dry Samir Cramer DO Oct 22, 2017 09:02
--- NOTE | 2017-10-22 09:18 | Nephrology Progress Note ---
Assessment/Plan Assessment/Plan 1. JOVANI- due to vol dep and infection causing prox tub damage from inflamm cytokines - BUN and Cr much improved. Cr at 1.4 - IVF's and Abx. Renal Us neg 2. UTI- WBC improved. Patient symptomatically better 3. Dehydration- continue IVF's Subjective Date patient seen: Oct 22, 2017 Time patient seen: 09:16 ROS Limited/Unobtainable: No Allergies: Coded Allergies: No Known Allergies (Unverified , 07/19/17) All Systems: reviewed and negative except above Subjective Patient improved. Declining bkfst Objective Last 24 Hour Vital Signs Date Time Temp Pulse Resp B/P (MAP) Pulse Ox O2 Delivery O2 Flow Rate FiO2 10/22/17 08:00 98.1 78 20 121/52 (75) 98 98.1 10/22/17 04:00 97.9 66 20 106/66 (79) 98 97.9 10/22/17 00:00 97.1 97 20 120/62 (81) 95 97.1 10/21/17 21:38 99 20 Room Air 21 10/21/17 21:00 Room Air 10/21/17 20:00 96.7 102 20 113/59 (77) 96 96.7 10/21/17 15:56 99.1 91 18 113/42 (65) 96 99.1 10/21/17 12:17 98.1 89 18 96/40 (58) 96 98.1 10/21/17 12:00 88 Intake and Output 10/21/17 10/22/17 19:00 07:00 Intake Total 330.0 ml Output Total 250 ml Balance 330.0 ml -250 ml IV Total 330.0 ml Output Urine Total 250 ml # Voids 1 # Bowel Movements 1 Laboratory Tests 10/21/17 10:10: Urine Color Pale yellow, Urine Appearance Slightly cloudy, Urine pH 5, Urine Specific [place] 1.010, Urine Protein 2+H, Urine Glucose (UA) Negative, Urine Ketones Negative, Urine Occult Blood 2+H, Urine Nitrite Negative, Urine Bilirubin Negative, Urine Urobilinogen Normal, Urine Leukocyte Esterase 3+H, Urine RBC 5-10H, Urine WBC 30-40H, Urine Squamous Epithelial Cells Occasional, Urine Amorphous Sediment FewH, Urine Bacteria ModerateH, Urine Eosinophils None seen, Urine Random Sodium 42, Urine Potassium Timed 20 10/21/17 13:05: Urine Random Creatinine [Pending], Urine Random Microalbumin [Pending], Urine Random Total Protein 75H, Urine Creatinine 49.7, Urine Microalbumin/Creatinine Ratio [Pending] 10/22/17 05:50: White Blood Count 13.6H, Red Blood Count 3.67L, Hemoglobin 9.6L, Hematocrit 29.8L, Mean Corpuscular Volume 81, Mean Corpuscular Hemoglobin 26.2L, Mean Corpuscular Hemoglobin Concent 32.2, Red Cell Distribution Width 15.4H, Platelet Count 480H, Mean Platelet Volume 6.9, Neutrophils (%) (Auto) 76.4H, Lymphocytes (%) (Auto) 13.7L, Monocytes (%) (Auto) 6.9, Eosinophils (%) (Auto) 1.9, Basophils (%) (Auto) 1.1, Sodium Level 146H, Potassium Level 3.8, Chloride Level 113H, Carbon Dioxide Level 25, Anion Gap 8, Blood Urea Nitrogen 43H, Creatinine 1.4H, Estimat Glomerular Filtration Rate , Glucose Level 145H, Calcium Level 9.0, Total Bilirubin 0.4, Aspartate Amino Transf (AST/SGOT) 50H, Alanine Aminotransferase (ALT/SGPT) 90H, Alkaline Phosphatase 85, Total Protein 7.6, Albumin 2.0L, Globulin 5.6, Albumin/Globulin Ratio 0.4L Height (Feet): 5 Height (Inches): 8.00 Weight (Pounds): 120 General Appearance: no apparent distress, mild distress EENT: normal ENT inspection Neck: normal alignment, supple Cardiovascular: normal rate, regular rhythm Respiratory/Chest: lungs clear, normal breath sounds Abdomen: non tender, soft, no organomegaly Edema: no edema noted Arm (L), no edema noted Arm (R), no edema noted Leg (L), no edema noted Leg (R), no edema noted Pedal (L), no edema noted Pedal (R), no edema noted Generalized Joaquín Silverio M.D. Oct 22, 2017 09:18
[2017-10-22] MEDS: Heparin 5000 units/ml inj SUBQ SCH ×2 (10:37→21:58)
[2017-10-22] MEDS ORDERED: Vancomycin 1gm in D5W 275ml IVPB SCH (11:00)
[2017-10-22 12:00] VITALS: BP 122/50
[2017-10-22] MEDS: Meropenem 1 GM in NS 55 ML IVPB SCH (12:26)
--- NOTE | 2017-10-22 12:55 | Infectious Diseases Prog Note ---
Assessment/Plan Assessment/Plan Assessment: Leukocytosis improving Severe Sepsis, Sp -UTI r/o bacteremia- r/o MDRO (hx of it) US Kid : neg -u/a wbc 30-40, nit -, leuk +3; ucx GNR -Bcx p -CXR: No definite focal consolidation, pleural effusion or pneumothorax. Recent Probable UTI 09/2017, s/p Rx (+difficulty urination, leukocytosis) -u/a wbc 30-40, nit neg, leuk +3; ucx >100K P. stuarti (R Amp, ancef, Genta; I Cipro/levo, Zosyn; CEftriaxone reported as S- however Anthony 8 0 ?resistant), S. Meropenem - hx of UTI 07/2017: MDR Proteus mirabilis Transaminitis improving Penile Edema , no erythema ( 10/22 ) resolved cellulitis BPH COPD DM2 cachexia chronic left shoulder dislocation Dementia care home resident Plan: - Cont Meropenem d# 2 given prior MDR UTI DC IV Vancomycin # 2 - 10/21 Sp one time dose of AMikacin and Cefepime -10/02 SP Ertapenem #5 -09/27 SP Meropenem #2 -09/24 SP Keflex and Ertapenem x1 -07/2017 SP Ertapenem #5 -Testicular US -Monitor closely penile area; URology fup -f/u cx -Monitor CBC/CMP, temperatures Subjective Allergies: Coded Allergies: No Known Allergies (Unverified , 07/19/17) Subjective comfortable Objective Vital Signs Last 24 Hour Vital Signs Date Time Temp Pulse Resp B/P (MAP) Pulse Ox O2 Delivery O2 Flow Rate FiO2 10/22/17 08:00 98.1 78 20 121/52 (75) 98 98.1 10/22/17 04:00 97.9 66 20 106/66 (79) 98 97.9 10/22/17 00:00 97.1 97 20 120/62 (81) 95 97.1 10/21/17 21:38 99 20 Room Air 21 10/21/17 21:00 Room Air 10/21/17 20:00 96.7 102 20 113/59 (77) 96 96.7 10/21/17 15:56 99.1 91 18 113/42 (65) 96 99.1 Height (Feet): 5 Height (Inches): 8.00 Weight (Pounds): 120 HEENT: anicteric Respiratory/Chest: normal breath sounds Cardiovascular: regularly irregular Abdomen: non distended Microbiology Date/Time Source Procedure Growth Status 10/21/17 10:10 Urine,Clean Catch Urine Culture - Preliminary Gram Negative Jordon Resulted 10/20/17 23:23 Urine,Clean Catch Urine Culture - Preliminary Gram Negative Jordon Resulted Laboratory Tests Test 10/21/17 13:05 10/22/17 05:50 Urine Random Creatinine Pending Urine Random Microalbumin Pending Urine Random Total Protein 75 MG/DL (< 11.9) H Urine Creatinine 49.7 MG/DL (30.0-125.0) Urine Microalbumin/Creatinine Ratio Pending White Blood Count 13.6 K/UL (4.8-10.8) H Red Blood Count 3.67 M/UL (4.70-6.10) L Hemoglobin 9.6 G/DL (14.2-18.0) L Hematocrit 29.8 % (42.0-52.0) L Mean Corpuscular Volume 81 FL (80-99) Mean Corpuscular Hemoglobin 26.2 PG (27.0-31.0) L Mean Corpuscular Hemoglobin Concent 32.2 G/DL (32.0-36.0) Red Cell Distribution Width 15.4 % (11.6-14.8) H Platelet Count 480 K/UL (150-450) H Mean Platelet Volume 6.9 FL (6.5-10.1) Neutrophils (%) (Auto) 76.4 % (45.0-75.0) H Lymphocytes (%) (Auto) 13.7 % (20.0-45.0) L Monocytes (%) (Auto) 6.9 % (1.0-10.0) Eosinophils (%) (Auto) 1.9 % (0.0-3.0) Basophils (%) (Auto) 1.1 % (0.0-2.0) Sodium Level 146 MMOL/L (136-145) H Potassium Level 3.8 MMOL/L (3.5-5.1) Chloride Level 113 MMOL/L (98-107) H Carbon Dioxide Level 25 MMOL/L (21-32) Anion Gap 8 mmol/L (5-15) Blood Urea Nitrogen 43 mg/dL (7-18) H Creatinine 1.4 MG/DL (0.55-1.30) H Estimat Glomerular Filtration Rate mL/min (>60) Glucose Level 145 MG/DL (74-106) H Calcium Level 9.0 MG/DL (8.5-10.1) Total Bilirubin 0.4 MG/DL (0.2-1.0) Aspartate Amino Transf (AST/SGOT) 50 U/L (15-37) H Alanine Aminotransferase (ALT/SGPT) 90 U/L (12-78) H Alkaline Phosphatase 85 U/L (46-116) Total Protein 7.6 G/DL (6.4-8.2) Albumin 2.0 G/DL (3.4-5.0) L Globulin 5.6 g/dL Albumin/Globulin Ratio 0.4 (1.0-2.7) L Current Medications Medications (Trade) Dose Ordered Sig/Nicole Route PRN Reason Start Time Stop Time Status Last Admin Dose Admin Acetaminophen (Tylenol) 650 mg Q4H PRN ORAL fever 10/21/17 19:30 11/20/17 07:29 Albuterol/ Ipratropium (Albuterol/ Ipratropium) 3 ml Q4H PRN HHN Shortness of Breath 10/21/17 16:45 10/26/17 16:44 Heparin Sodium (Porcine) (Heparin 5000 units/ml) 5,000 units EVERY 12 HOURS SUBQ 10/21/17 21:00 11/20/17 08:59 10/22/17 10:37 Meropenem 1 gm/ Sodium Chloride 55 ml @ 110 mls/hr Q12H IVPB 10/22/17 12:00 10/27/17 11:59 10/22/17 12:26 Morphine Sulfate (Morphine Sulfate) 2 mg Q4H PRN IVP Moderate Pain (Pain Scale 4-6) 10/21/17 17:00 10/28/17 16:59 Olanzapine (ZyPREXA) 2.5 mg BEDTIME PRN ORAL anxiety 10/21/17 23:45 11/20/17 23:44 Ondansetron HCl (Zofran) 4 mg Q6H PRN IVP Nausea & Vomiting 10/21/17 17:00 11/20/17 16:59 Phenazopyridine HCl (Pyridium) 100 mg DAILYPRN PRN ORAL dysuria 7/14/18 09:00 11/21/17 08:59 Polyethylene Glycol (Miralax) 17 gm DAILYPRN PRN ORAL Constipation 10/22/17 07:30 11/20/17 07:29 Tamsulosin HCl (Flomax) 0.4 mg BEDTIME ORAL 10/21/17 21:00 11/20/17 20:59 10/21/17 21:40 Temazepam (Restoril) 15 mg HSPRN PRN ORAL Insomnia 10/21/17 21:00 10/28/17 20:59 Vancomycin HCl (Vanco rx to dose) 1 ea DAILY PRN MISC PER RX PROTOCOL 10/21/17 18:30 11/20/17 18:29 Vancomycin HCl 1 gm/Dextrose 275 ml @ 183.708 mls/hr Q24H IVPB 10/22/17 11:00 10/27/17 10:59 10/22/17 11:55 Gino James MD Oct 22, 2017 12:55
--- NOTE | 2017-10-22 13:27 | Nephrology Progress Note ---
Assessment/Plan Assessment 1. Acute renal failure. . 2. 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 3. Malnutrition. 4. Penile cellulitis and infection. 5.hypernatremia Plan start d5 at 40 cc/hour monitoring renal function closely replace electrolyte as need it avoid NSAID Subjective Constitutional: Reports: no symptoms HEENT: Reports: no symptoms Genitourinary: Reports: no symptoms Neurologic/Psychiatric: Reports: no symptoms Subjective no complaints Objective Objective Last 24 Hour Vital Signs Date Time Temp Pulse Resp B/P (MAP) Pulse Ox O2 Delivery O2 Flow Rate FiO2 10/22/17 12:00 96.8 80 17 122/50 (74) 97 96.8 10/22/17 08:00 98.1 78 20 121/52 (75) 98 98.1 10/22/17 04:00 97.9 66 20 106/66 (79) 98 97.9 10/22/17 00:00 97.1 97 20 120/62 (81) 95 97.1 10/21/17 21:38 99 20 Room Air 21 10/21/17 21:00 Room Air 10/21/17 20:00 96.7 102 20 113/59 (77) 96 96.7 10/21/17 15:56 99.1 91 18 113/42 (65) 96 99.1 Intake and Output 10/21/17 10/22/17 19:00 07:00 Intake Total 330.0 ml Output Total 250 ml Balance 330.0 ml -250 ml IV Total 330.0 ml Output Urine Total 250 ml # Voids 1 # Bowel Movements 1 Laboratory Tests 10/22/17 05:50: White Blood Count 13.6H, Red Blood Count 3.67L, Hemoglobin 9.6L, Hematocrit 29.8L, Mean Corpuscular Volume 81, Mean Corpuscular Hemoglobin 26.2L, Mean Corpuscular Hemoglobin Concent 32.2, Red Cell Distribution Width 15.4H, Platelet Count 480H, Mean Platelet Volume 6.9, Neutrophils (%) (Auto) 76.4H, Lymphocytes (%) (Auto) 13.7L, Monocytes (%) (Auto) 6.9, Eosinophils (%) (Auto) 1.9, Basophils (%) (Auto) 1.1, Sodium Level 146H, Potassium Level 3.8, Chloride Level 113H, Carbon Dioxide Level 25, Anion Gap 8, Blood Urea Nitrogen 43H, Creatinine 1.4H, Estimat Glomerular Filtration Rate , Glucose Level 145H, Calcium Level 9.0, Total Bilirubin 0.4, Aspartate Amino Transf (AST/SGOT) 50H, Alanine Aminotransferase (ALT/SGPT) 90H, Alkaline Phosphatase 85, Total Protein 7.6, Albumin 2.0L, Globulin 5.6, Albumin/Globulin Ratio 0.4L Height (Feet): 5 Height (Inches): 8.00 Weight (Pounds): 120 Objective HEAD AND NECK: No JVP. No LAD. No thyromegaly. Extraocular movement intact. Pupils are reactive to light and accommodation. LUNGS: Clear to auscultation. CARDIAC: Regular rate and rhythm. S1 and S2. No murmur. No rub. ABDOMEN: Soft, nontender, and nondistended. EXTREMITIES: No edema. No clubbing. No cyanosis. Mesha Day MD Oct 22, 2017 13:27
[2017-10-22] MEDS ORDERED: Tubing IV Secondary IV ONE (15:09)
[2017-10-22] MEDS ORDERED: NS 275ml ONE (15:09)
[2017-10-22 16:00] VITALS: BP 134/59
[2017-10-22 20:46] VITALS: BP 133/53
[2017-10-22] MEDS: Tamsulosin 0.4mg cap ORAL SCH (21:56)
[2017-10-23] VITALS (7 sets, daily range): BP systolic 119–148; BP diastolic 49–74
[2017-10-23] MEDS: Meropenem 1 GM in NS 55 ML IVPB SCH ×3 (00:40→23:28)
[2017-10-23 06:55] LABS: EOSINOPHILS % (AUTO) 6.2 % (0.0-3.0); HEMATOCRIT 32.1 % (42.0-52.0); HEMOGLOBIN 10.4 G/DL (14.2-18.0); LYMPHOCYTES % (AUTO) 15.4 % (20.0-45.0); MEAN CORPUSCULAR VOLUME 81 FL (80-99); MONOCYTES % (AUTO) 6.8 % (1.0-10.0); NEUTROPHILS % (AUTO) 70.6 % (45.0-75.0); PLATELET COUNT 539 K/UL (150-450); RED BLOOD COUNT 3.94 M/UL (4.70-6.10); RED CELL DISTRIBUTION WIDTH 15.3 % (11.6-14.8); WHITE BLOOD COUNT 9.1 K/UL (4.8-10.8)
[2017-10-23 07:00] LABS: ANION GAP 7 mmol/L (5-15); BLOOD UREA NITROGEN 29 mg/dL (7-18); CALCIUM 9.2 MG/DL (8.5-10.1); CARBON DIOXIDE 29 MMOL/L (21-32); CHLORIDE 109 MMOL/L (98-107); CREATININE 1.1 MG/DL (0.55-1.30); POTASSIUM 3.7 MMOL/L (3.5-5.1); SODIUM 145 MMOL/L (136-145)
--- NOTE | 2017-10-23 07:59 | General Progress Note ---
Assessment/Plan Problem List: (1) ARF (acute renal failure) ICD Codes: N17.9 - Acute kidney failure, unspecified SNOMED: 42901967 Qualifiers: Qualified Codes: N17.9 - Acute kidney failure, unspecified (2) UTI (urinary tract infection) ICD Codes: N39.0 - Urinary tract infection, site not specified SNOMED: 92845808 Qualifiers: Qualified Codes: N30.00 - Acute cystitis without hematuria (3) Sepsis ICD Codes: A41.9 - Sepsis, unspecified organism SNOMED: 54902021 Qualifiers: Qualified Codes: A41.9 - Sepsis, unspecified organism (4) Weak ICD Codes: R53.1 - Weakness SNOMED: 18975006 (5) Decubitus ulcer, heel, left, unstageable ICD Codes: L89.620 - Pressure ulcer of left heel, unstageable SNOMED: 987848550 (6) Anemia ICD Codes: D64.9 - Anemia, unspecified SNOMED: 125139166 Status: stable, progressing, tolerating diet Assessment/Plan ot pt diet abx wound care cbc bmp am Subjective Constitutional: Reports: weakness Allergies: Coded Allergies: No Known Allergies (Unverified , 07/19/17) All Systems: reviewed and negative except above Subjective eating in bed calm Objective Last 24 Hour Vital Signs Date Time Temp Pulse Resp B/P (MAP) Pulse Ox O2 Delivery O2 Flow Rate FiO2 10/23/17 04:00 98.7 86 20 148/74 (98) 100 98.7 10/23/17 01:02 97.5 74 20 137/57 (83) 98 97.5 10/23/17 00:00 97.5 74 20 137/57 (83) 98 97.5 10/22/17 21:00 Room Air 10/22/17 20:46 97.6 77 20 133/53 (79) 99 97.6 10/22/17 20:13 84 20 Room Air 21 10/22/17 17:46 83 20 Room Air 21 10/22/17 16:00 97.8 83 19 134/59 (84) 97 97.8 10/22/17 12:00 96.8 80 17 122/50 (74) 97 96.8 10/22/17 08:40 Room Air 10/22/17 08:00 98.1 78 20 121/52 (75) 98 98.1 Intake and Output 10/22/17 10/23/17 19:00 07:00 Intake Total 200 ml Output Total 300 ml 700 ml Balance -100 ml -700 ml Intake Oral 200 ml Output Urine Total 300 ml 700 ml Laboratory Tests 10/23/17 05:50: White Blood Count 9.1, Red Blood Count 3.94L, Hemoglobin 10.4L, Hematocrit 32.1L , Mean Corpuscular Volume 81, Mean Corpuscular Hemoglobin 26.5L, Mean Corpuscular Hemoglobin Concent 32.5, Red Cell Distribution Width 15.3H, Platelet Count 539H, Mean Platelet Volume 6.7, Neutrophils (%) (Auto) 70.6, Lymphocytes (%) (Auto) 15.4L, Monocytes (%) (Auto) 6.8, Eosinophils (%) (Auto) 6.2H, Basophils (%) (Auto) 1.0, Sodium Level 145, Potassium Level 3.7, Chloride Level 109H, Carbon Dioxide Level 29, Anion Gap 7, Blood Urea Nitrogen 29H, Creatinine 1.1, Estimat Glomerular Filtration Rate , Glucose Level 174H, Calcium Level 9.2 Height (Feet): 5 Height (Inches): 8.00 Weight (Pounds): 120 General Appearance: alert EENT: normal ENT inspection Neck: normal alignment Cardiovascular: normal peripheral pulses, normal rate, regular rhythm Respiratory/Chest: chest wall non-tender, lungs clear, normal breath sounds Abdomen: normal bowel sounds, non tender, soft Extremities: normal inspection Edema: no edema noted Arm (L), no edema noted Arm (R), no edema noted Leg (L), no edema noted Leg (R), no edema noted Pedal (L), no edema noted Pedal (R), no edema noted Generalized Neurologic: responsive, motor weakness Skin: normal pigmentation, warm/dry Samir Cramer DO Oct 23, 2017 07:59
--- NOTE | 2017-10-23 08:32 | Pulmonology Progress Note ---
Assessment/Plan Assessment/Plan ASSESSMENT Sepsis UTI with E coli acute renal failure/possible ATN on chronic renal insufficiency-resolved dehydration penile cellulitis proteinuria protein calorie malnutrition encephalopathy PLAN OF CARE IV fluids antibiotics urine cx +E coli ID follows Pyridium monitor renal parameters lytes, correct electrolytes as needed, avoid nephrotoxic creat down no normal nephrology follows urology eval noted per urologist - no evidence of Lei or other process that would require surgical intervention recommend abx treatment for 10-14 days baseline phimoses O2 HHN when necessary pain management DVT prophylaxis bowel regimen supportive care psych follows dietary eval case discussed and evaluated by supervising physician Subjective Allergies: Coded Allergies: No Known Allergies (Unverified , 07/19/17) Subjective leukocytosis resolved, afebrile creat down to 1.1 Objective Last 24 Hour Vital Signs Date Time Temp Pulse Resp B/P (MAP) Pulse Ox O2 Delivery O2 Flow Rate FiO2 10/23/17 04:00 98.7 86 20 148/74 (98) 100 98.7 10/23/17 01:02 97.5 74 20 137/57 (83) 98 97.5 10/23/17 00:00 97.5 74 20 137/57 (83) 98 97.5 10/22/17 21:00 Room Air 10/22/17 20:46 97.6 77 20 133/53 (79) 99 97.6 10/22/17 20:13 84 20 Room Air 21 10/22/17 17:46 83 20 Room Air 21 10/22/17 16:00 97.8 83 19 134/59 (84) 97 97.8 10/22/17 12:00 96.8 80 17 122/50 (74) 97 96.8 10/22/17 08:40 Room Air Intake and Output 10/22/17 10/23/17 19:00 07:00 Intake Total 200 ml Output Total 300 ml 700 ml Balance -100 ml -700 ml Intake Oral 200 ml Output Urine Total 300 ml 700 ml Objective General Appearance: no acute distress HEENT: normocephalic, atraumatic, anicteric Respiratory/Chest: lungs clear Cardiovascular: normal rate Abdomen: soft, non tender, non distended Genitourinary: mildly inflamed and indurated foreskin with baseline phimosis. Extremities: no edema Neurologic/Psychiatric: abnormal gait, alert, responsive Microbiology Date/Time Source Procedure Growth Status 10/21/17 08:00 Blood Blood Culture - Preliminary NO GROWTH AFTER 24 HOURS Resulted 10/21/17 07:45 Blood Blood Culture - Preliminary NO GROWTH AFTER 24 HOURS Resulted 10/21/17 10:10 Urine,Clean Catch Urine Culture - Final Escherichia Coli Complete 10/20/17 23:23 Urine,Clean Catch Urine Culture - Final Escherichia Coli Complete Laboratory Tests 10/23/17 05:50: White Blood Count 9.1, Red Blood Count 3.94L, Hemoglobin 10.4L, Hematocrit 32.1L , Mean Corpuscular Volume 81, Mean Corpuscular Hemoglobin 26.5L, Mean Corpuscular Hemoglobin Concent 32.5, Red Cell Distribution Width 15.3H, Platelet Count 539H, Mean Platelet Volume 6.7, Neutrophils (%) (Auto) 70.6, Lymphocytes (%) (Auto) 15.4L, Monocytes (%) (Auto) 6.8, Eosinophils (%) (Auto) 6.2H, Basophils (%) (Auto) 1.0, Sodium Level 145, Potassium Level 3.7, Chloride Level 109H, Carbon Dioxide Level 29, Anion Gap 7, Blood Urea Nitrogen 29H, Creatinine 1.1, Estimat Glomerular Filtration Rate , Glucose Level 174H, Calcium Level 9.2 Current Medications Medications (Trade) Dose Ordered Sig/Nicole Route PRN Reason Start Time Stop Time Status Last Admin Dose Admin Acetaminophen (Tylenol) 650 mg Q4H PRN ORAL fever 10/21/17 19:30 11/20/17 07:29 Albuterol/ Ipratropium (Albuterol/ Ipratropium) 3 ml Q4H PRN HHN Shortness of Breath 10/21/17 16:45 10/26/17 16:44 Dextrose 1,000 ml @ 50 mls/hr Q20H IV 10/22/17 13:30 11/21/17 13:29 10/22/17 15:38 Heparin Sodium (Porcine) (Heparin 5000 units/ml) 5,000 units EVERY 12 HOURS SUBQ 10/21/17 21:00 11/20/17 08:59 10/22/17 21:58 Meropenem 1 gm/ Sodium Chloride 55 ml @ 110 mls/hr Q12H IVPB 10/22/17 12:00 10/27/17 11:59 10/23/17 00:40 Morphine Sulfate (Morphine Sulfate) 2 mg Q4H PRN IVP Moderate Pain (Pain Scale 4-6) 10/21/17 17:00 10/28/17 16:59 Olanzapine (ZyPREXA) 2.5 mg BEDTIME PRN ORAL anxiety 10/21/17 23:45 11/20/17 23:44 Ondansetron HCl (Zofran) 4 mg Q6H PRN IVP Nausea & Vomiting 10/21/17 17:00 11/20/17 16:59 Phenazopyridine HCl (Pyridium) 100 mg DAILYPRN PRN ORAL dysuria 10/22/17 09:00 11/21/17 08:59 Polyethylene Glycol (Miralax) 17 gm DAILYPRN PRN ORAL Constipation 10/22/17 07:30 11/20/17 07:29 Tamsulosin HCl (Flomax) 0.4 mg BEDTIME ORAL 10/21/17 21:00 11/20/17 20:59 10/22/17 21:56 Temazepam (Restoril) 15 mg HSPRN PRN ORAL Insomnia 10/21/17 21:00 10/28/17 20:59 Aster Christensen [employer] Oct 23, 2017 08:32
[2017-10-23] MEDS: Heparin 5000 units/ml inj SUBQ SCH ×2 (08:51→20:20)
--- NOTE | 2017-10-23 10:46 | Nephrology Progress Note ---
Assessment/Plan Assessment/Plan 1. JOVANI- due to vol dep and infection causing prox tub damage from inflamm cytokines - resolved. Will sign off today. Thank you for consult 2. UTI- WBC improved. Patient symptomatically better 3. Dehydration- on D5W and Na normalized Subjective Date patient seen: Oct 23, 2017 Time patient seen: 10:45 ROS Limited/Unobtainable: No Allergies: Coded Allergies: No Known Allergies (Unverified , 07/19/17) Subjective Patient improved. Eating bkfst today Objective Last 24 Hour Vital Signs Date Time Temp Pulse Resp B/P (MAP) Pulse Ox O2 Delivery O2 Flow Rate FiO2 10/23/17 08:00 Room Air 10/23/17 08:00 97.3 56 18 131/49 (76) 94 97.3 10/23/17 04:00 98.7 86 20 148/74 (98) 100 98.7 10/23/17 01:02 97.5 74 20 137/57 (83) 98 97.5 10/23/17 00:00 97.5 74 20 137/57 (83) 98 97.5 10/22/17 21:00 Room Air 10/22/17 20:46 97.6 77 20 133/53 (79) 99 97.6 10/22/17 20:13 84 20 Room Air 21 10/22/17 17:46 83 20 Room Air 21 10/22/17 16:00 97.8 83 19 134/59 (84) 97 97.8 10/22/17 12:00 96.8 80 17 122/50 (74) 97 96.8 Intake and Output 10/22/17 10/23/17 19:00 07:00 Intake Total 200 ml Output Total 300 ml 700 ml Balance -100 ml -700 ml Intake Oral 200 ml Output Urine Total 300 ml 700 ml Laboratory Tests 10/23/17 05:50: White Blood Count 9.1, Red Blood Count 3.94L, Hemoglobin 10.4L, Hematocrit 32.1L , Mean Corpuscular Volume 81, Mean Corpuscular Hemoglobin 26.5L, Mean Corpuscular Hemoglobin Concent 32.5, Red Cell Distribution Width 15.3H, Platelet Count 539H, Mean Platelet Volume 6.7, Neutrophils (%) (Auto) 70.6, Lymphocytes (%) (Auto) 15.4L, Monocytes (%) (Auto) 6.8, Eosinophils (%) (Auto) 6.2H, Basophils (%) (Auto) 1.0, Sodium Level 145, Potassium Level 3.7, Chloride Level 109H, Carbon Dioxide Level 29, Anion Gap 7, Blood Urea Nitrogen 29H, Creatinine 1.1, Estimat Glomerular Filtration Rate , Glucose Level 174H, Calcium Level 9.2 Height (Feet): 5 Height (Inches): 8.00 Weight (Pounds): 120 General Appearance: WD/WN, no apparent distress EENT: PERRL/EOMI, normal ENT inspection Neck: normal alignment, supple Cardiovascular: normal rate, regular rhythm Respiratory/Chest: chest wall non-tender, lungs clear, normal breath sounds Abdomen: non tender, soft Edema: no edema noted Arm (L), no edema noted Arm (R), no edema noted Leg (L), no edema noted Leg (R), no edema noted Pedal (L), no edema noted Pedal (R), no edema noted Generalized Joaquín Silverio M.D. Oct 23, 2017 10:46
--- NOTE | 2017-10-23 12:17 | Cardiology Report ---
APPROVED REPORT EKG Measurement Heart [id number] Sinus tachycardia Possible Left atrial enlargement Nonspecific ST and T wave abnormality Abnormal ECG
--- NOTE | 2017-10-23 16:32 | Nephrology Progress Note ---
Assessment/Plan Assessment 1. Acute renal failure. . 2. 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 3. Malnutrition. 4. Penile cellulitis and infection. 5.hypernatremia Plan continue d5 at 40 cc/hour monitoring renal function closely replace electrolyte as need it avoid NSAID Subjective Constitutional: Reports: no symptoms HEENT: Reports: no symptoms Genitourinary: Reports: no symptoms Neurologic/Psychiatric: Reports: no symptoms Subjective no complaints Objective Objective Last 24 Hour Vital Signs Date Time Temp Pulse Resp B/P (MAP) Pulse Ox O2 Delivery O2 Flow Rate FiO2 10/23/17 12:00 97.0 66 18 119/49 (72) 98 97.0 10/23/17 08:00 Room Air 10/23/17 08:00 97.3 56 18 131/49 (76) 94 97.3 10/23/17 04:00 98.7 86 20 148/74 (98) 100 98.7 10/23/17 01:02 97.5 74 20 137/57 (83) 98 97.5 10/23/17 00:00 97.5 74 20 137/57 (83) 98 97.5 10/22/17 21:00 Room Air 10/22/17 20:46 97.6 77 20 133/53 (79) 99 97.6 10/22/17 20:13 84 20 Room Air 21 10/22/17 17:46 83 20 Room Air 21 Intake and Output 10/22/17 10/23/17 19:00 07:00 Intake Total 200 ml Output Total 300 ml 700 ml Balance -100 ml -700 ml Intake Oral 200 ml Output Urine Total 300 ml 700 ml Laboratory Tests 10/23/17 05:50: White Blood Count 9.1, Red Blood Count 3.94L, Hemoglobin 10.4L, Hematocrit 32.1L , Mean Corpuscular Volume 81, Mean Corpuscular Hemoglobin 26.5L, Mean Corpuscular Hemoglobin Concent 32.5, Red Cell Distribution Width 15.3H, Platelet Count 539H, Mean Platelet Volume 6.7, Neutrophils (%) (Auto) 70.6, Lymphocytes (%) (Auto) 15.4L, Monocytes (%) (Auto) 6.8, Eosinophils (%) (Auto) 6.2H, Basophils (%) (Auto) 1.0, Sodium Level 145, Potassium Level 3.7, Chloride Level 109H, Carbon Dioxide Level 29, Anion Gap 7, Blood Urea Nitrogen 29H, Creatinine 1.1, Estimat Glomerular Filtration Rate , Glucose Level 174H, Calcium Level 9.2 Height (Feet): 5 Height (Inches): 8.00 Weight (Pounds): 120 Objective HEAD AND NECK: No JVP. No LAD. No thyromegaly. Extraocular movement intact. Pupils are reactive to light and accommodation. LUNGS: Clear to auscultation. CARDIAC: Regular rate and rhythm. S1 and S2. No murmur. No rub. ABDOMEN: Soft, nontender, and nondistended. EXTREMITIES: No edema. No clubbing. No cyanosis. Mesha Day MD Oct 23, 2017 16:32
[2017-10-23] MEDS: Tamsulosin 0.4mg cap ORAL SCH (20:19)
--- NOTE | 2017-10-23 22:15 | Progress Note ---
DATE: 10/23/2017 SUBJECTIVE: The patient is a 77-year-old male with urinary tract infection, altered mental status, and confusion. That is why, his attending has requested daily psychiatric consultation. MENTAL STATUS EXAMINATION: The patient is a 77-year-old male. Appearance is disheveled. Attitude, irritable and agitated. Affect guarded and restricted. Intellect poor. Mood depressed and anxious. Motor activity, psychomotor agitation. Attention span is poor. Orientation x2. Speech is pressured. Thought process, disorganized and illogical. Thought process, auditory hallucinations and paranoid delusions. Insight and judgement is poor. DIAGNOSES: 1. Paranoid schizophrenia, acute exacerbation . 2. Major depression with psychotic features, rule out pseudodementia. PLAN: Treat the patient with Zyprexa 2.5 mg at bedtime p.r.n. insomnia and anxiety. Also, provide 18 to 20 minutes of cognitive behavioral therapy for this patient to prevent any further decline in his cognition. Chart reviewed. Seen and assessed at bedside. Lea Dodd M.D. DR: BRAYDEN JOB#: [id number] CC:
[2017-10-24] VITALS: BP 128/57
[2017-10-24 04:00] VITALS: BP 127/59
--- NOTE | 2017-10-24 07:41 | Nephrology Progress Note ---
Assessment/Plan Assessment 1. Acute renal failure. . 2. 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 3. Malnutrition. 4. Penile cellulitis and infection. 5.hypernatremia Plan continue d5 at 40 cc/hour monitoring renal function closely replace electrolyte as need it avoid NSAID Subjective Constitutional: Reports: no symptoms HEENT: Reports: no symptoms Genitourinary: Reports: no symptoms Neurologic/Psychiatric: Reports: no symptoms Subjective no complaints Objective Objective Last 24 Hour Vital Signs Date Time Temp Pulse Resp B/P (MAP) Pulse Ox O2 Delivery O2 Flow Rate FiO2 10/24/17 04:00 98.1 72 19 127/59 (81) 96 98.1 10/24/17 00:00 98.1 84 16 128/57 (80) 96 98.1 10/23/17 21:00 Room Air 10/23/17 20:00 98.6 83 18 127/50 (75) 96 98.6 10/23/17 17:44 72 16 Room Air 21 10/23/17 16:00 98.1 86 19 124/56 (78) 96 98.1 10/23/17 12:00 97.0 66 18 119/49 (72) 98 97.0 10/23/17 08:00 Room Air 10/23/17 08:00 97.3 56 18 131/49 (76) 94 97.3 Intake and Output 10/23/17 10/24/17 19:00 07:00 Intake Total 200 ml 455 ml Output Total 400 ml 650 ml Balance -200 ml -195 ml Intake Oral 200 ml IV Total 455 ml Output Urine Total 400 ml 650 ml # Voids 1 # Bowel Movements 1 Height (Feet): 5 Height (Inches): 8.00 Weight (Pounds): 120 Objective HEAD AND NECK: No JVP. No LAD. No thyromegaly. Extraocular movement intact. Pupils are reactive to light and accommodation. LUNGS: Clear to auscultation. CARDIAC: Regular rate and rhythm. S1 and S2. No murmur. No rub. ABDOMEN: Soft, nontender, and nondistended. EXTREMITIES: No edema. No clubbing. No cyanosis. Mesha Day MD Oct 24, 2017 07:41
[2017-10-24 08:00] VITALS: BP 105/52
[2017-10-24] MEDS: Heparin 5000 units/ml inj SUBQ SCH ×2 (08:42→20:06)
[2017-10-24 09:45] LABS: BASOPHILS % (AUTO) 0.8 % (0.0-2.0); EOSINOPHILS % (AUTO) 4.4 % (0.0-3.0); HEMATOCRIT 35.8 % (42.0-52.0); HEMOGLOBIN 11.6 G/DL (14.2-18.0); LYMPHOCYTES % (AUTO) 17.8 % (20.0-45.0); MEAN CORPUSCULAR VOLUME 82 FL (80-99); MONOCYTES % (AUTO) 5.2 % (1.0-10.0); NEUTROPHILS % (AUTO) 71.8 % (45.0-75.0); PLATELET COUNT 580 K/UL (150-450); RED BLOOD COUNT 4.38 M/UL (4.70-6.10); RED CELL DISTRIBUTION WIDTH 15.7 % (11.6-14.8); WHITE BLOOD COUNT 9.6 K/UL (4.8-10.8)
[2017-10-24 10:21] LABS: ANION GAP 8 mmol/L (5-15); BLOOD UREA NITROGEN 19 mg/dL (7-18); CALCIUM 8.8 MG/DL (8.5-10.1); CARBON DIOXIDE 26 MMOL/L (21-32); CHLORIDE 105 MMOL/L (98-107); CREATININE 1.1 MG/DL (0.55-1.30); POTASSIUM 3.7 MMOL/L (3.5-5.1); SODIUM 139 MMOL/L (136-145)
--- NOTE | 2017-10-24 11:17 | General Progress Note ---
Assessment/Plan Problem List: (1) ARF (acute renal failure) ICD Codes: N17.9 - Acute kidney failure, unspecified SNOMED: 31613432 Qualifiers: Qualified Codes: N17.9 - Acute kidney failure, unspecified (2) UTI (urinary tract infection) ICD Codes: N39.0 - Urinary tract infection, site not specified SNOMED: 19338356 Qualifiers: Qualified Codes: N30.00 - Acute cystitis without hematuria (3) Sepsis ICD Codes: A41.9 - Sepsis, unspecified organism SNOMED: 97280815 Qualifiers: Qualified Codes: A41.9 - Sepsis, unspecified organism (4) Weak ICD Codes: R53.1 - Weakness SNOMED: 23220084 (5) Decubitus ulcer, heel, left, unstageable ICD Codes: L89.620 - Pressure ulcer of left heel, unstageable SNOMED: 920142575 (6) Anemia ICD Codes: D64.9 - Anemia, unspecified SNOMED: 820007421 Status: stable, progressing Assessment/Plan ot pt diet abx wound care cbc bmp am dc plan snf Subjective Constitutional: Reports: weakness Allergies: Coded Allergies: No Known Allergies (Unverified , 07/19/17) All Systems: reviewed and negative except above Subjective sleepy in bed calm Objective Last 24 Hour Vital Signs Date Time Temp Pulse Resp B/P (MAP) Pulse Ox O2 Delivery O2 Flow Rate FiO2 10/24/17 09:00 Room Air 10/24/17 08:00 98.5 92 20 105/52 (69) 98 98.5 10/24/17 04:00 98.1 72 19 127/59 (81) 96 98.1 10/24/17 00:00 98.1 84 16 128/57 (80) 96 98.1 10/23/17 21:00 Room Air 10/23/17 20:00 98.6 83 18 127/50 (75) 96 98.6 10/23/17 17:44 72 16 Room Air 21 10/23/17 16:00 98.1 86 19 124/56 (78) 96 98.1 10/23/17 12:00 97.0 66 18 119/49 (72) 98 97.0 Intake and Output 10/23/17 10/24/17 19:00 07:00 Intake Total 200 ml 605 ml Output Total 400 ml 650 ml Balance -200 ml -45 ml Intake Oral 200 ml IV Total 605 ml Output Urine Total 400 ml 650 ml # Voids 1 # Bowel Movements 1 Laboratory Tests 10/24/17 09:00: White Blood Count 9.6, Red Blood Count 4.38L, Hemoglobin 11.6L, Hematocrit 35.8L , Mean Corpuscular Volume 82, Mean Corpuscular Hemoglobin 26.4L, Mean Corpuscular Hemoglobin Concent 32.2, Red Cell Distribution Width 15.7H, Platelet Count 580H, Mean Platelet Volume 6.7, Neutrophils (%) (Auto) 71.8, Lymphocytes (%) (Auto) 17.8L, Monocytes (%) (Auto) 5.2, Eosinophils (%) (Auto) 4.4H, Basophils (%) (Auto) 0.8, Sodium Level 139, Potassium Level 3.7, Chloride Level 105, Carbon Dioxide Level 26, Anion Gap 8, Blood Urea Nitrogen 19H, Creatinine 1.1, Estimat Glomerular Filtration Rate , Glucose Level 173H, Calcium Level 8.8 Height (Feet): 5 Height (Inches): 8.00 Weight (Pounds): 120 General Appearance: lethargic EENT: normal ENT inspection Neck: normal alignment Cardiovascular: normal peripheral pulses, normal rate, regular rhythm Respiratory/Chest: chest wall non-tender, lungs clear, normal breath sounds Abdomen: normal bowel sounds, non tender, soft Extremities: normal inspection Edema: no edema noted Arm (L), no edema noted Arm (R), no edema noted Leg (L), no edema noted Leg (R), no edema noted Pedal (L), no edema noted Pedal (R), no edema noted Generalized Neurologic: motor weakness Skin: normal pigmentation, warm/dry Samir Cramer DO Oct 24, 2017 11:17
[2017-10-24 12:00] VITALS: BP 113/52
--- NOTE | 2017-10-24 12:00 | Consultation ---
DATE OF CONSULTATION: 10/22/2017 HISTORY OF PRESENT ILLNESS: This is a 77-year-old patient with sepsis and urinary tract infection 00:06 the patient was admitted to [facility], but daily psychiatric consultation was requested by this patient's attending physician 00:14 initial psychiatric consultation, a 77-year-old male patient. He has sepsis and urinary tract infection, but as a result of this he has got increased decline in his cognition and altered mental status, worsened by stress of his medical illness. In addition to that, he has overlying diagnosis of paranoid schizophrenia. PAST MEDICAL HISTORY: As far as this patient's medical history, he has a history of decubitus ulcers, proteinuria, COPD, cachexia, severe protein malnutrition, BPH, as well as sepsis and urinary tract infection. SOCIAL HISTORY: The patient is financially supported by [employer] and [employer]. He lives in [facility]. SUBSTANCE ABUSE: Denies drug or alcohol use. ALLERGIES: No known drug allergies. MENTAL STATUS EXAMINATION: This is a 77-year-old male. Appearance is disheveled. Attitude is irritable and agitated. Affect is guarded and restricted. Intellect is poor. Mood depressed and anxious. Motor activity, psychomotor agitation. Attention span is poor. Orientation x2. Speech is low volume and slurred. Thought process, disorganized and illogical. Thought content, auditory hallucinations and paranoid delusions. Insight and judgment are poor. DIAGNOSES: 1. Major depression with psychotic features, rule out pseudodementia. 2. Medical, sepsis. 3. Psychosocial stressors, financial. PLAN: Plan for this patient is to continue treatment with p.r.n. Zyprexa, but I am also going to add a dose of p.r.n. Ativan to help reduce agitation and anxiety and encourage him to interact appropriately with staff and other patients. Plan is to continue Zyprexa 2.5 mg at bedtime p.r.n., but also I am going to add Ativan at a dose of 0.5 mg every 6 hours p.r.n. anxiety and agitation and have him continued to be followed by Psychiatry per request of his internal medicine physician, Dr. Samir Cramer. Chart reviewed and discussed with staff and 20 minutes of insight-oriented psychotherapy was provided this morning to help this patient get insight into his psychiatric illness in order to have better impulse control and reduction of symptoms. Seen and assessed in his room. I would like to thank Dr. Samir Cramer for this interesting consultation. Lea Dodd M.D. DR: Gege JOB#: [id number] CC:
--- NOTE | 2017-10-24 13:30 | Pulmonology Progress Note ---
Assessment/Plan Problems: (1) Sepsis (2) COPD (chronic obstructive pulmonary disease) (3) ARF (acute renal failure) (4) Severe protein-calorie malnutrition Assessment/Plan continue abx check electrolytes check cultures pt/ot symptomatic treatment Subjective ROS Limited/Unobtainable: No Allergies: Coded Allergies: No Known Allergies (Unverified , 07/19/17) Objective Last 24 Hour Vital Signs Date Time Temp Pulse Resp B/P (MAP) Pulse Ox O2 Delivery O2 Flow Rate FiO2 10/24/17 12:00 98.0 92 20 113/52 (72) 98 98.0 10/24/17 09:00 Room Air 10/24/17 08:00 98.5 92 20 105/52 (69) 98 98.5 10/24/17 04:00 98.1 72 19 127/59 (81) 96 98.1 10/24/17 00:00 98.1 84 16 128/57 (80) 96 98.1 10/23/17 21:00 Room Air 10/23/17 20:00 98.6 83 18 127/50 (75) 96 98.6 10/23/17 17:44 72 16 Room Air 21 10/23/17 16:00 98.1 86 19 124/56 (78) 96 98.1 Intake and Output 10/23/17 10/24/17 19:00 07:00 Intake Total 200 ml 605 ml Output Total 400 ml 650 ml Balance -200 ml -45 ml Intake Oral 200 ml IV Total 605 ml Output Urine Total 400 ml 650 ml # Voids 1 # Bowel Movements 1 General Appearance: cachetic HEENT: normocephalic, atraumatic Respiratory/Chest: chest wall non-tender Cardiovascular: normal peripheral pulses, normal rate Abdomen: normal bowel sounds, soft, non tender, no scars Extremities: no cyanosis 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 Laboratory Tests 10/24/17 09:00: White Blood Count 9.6, Red Blood Count 4.38L, Hemoglobin 11.6L, Hematocrit 35.8L , Mean Corpuscular Volume 82, Mean Corpuscular Hemoglobin 26.4L, Mean Corpuscular Hemoglobin Concent 32.2, Red Cell Distribution Width 15.7H, Platelet Count 580H, Mean Platelet Volume 6.7, Neutrophils (%) (Auto) 71.8, Lymphocytes (%) (Auto) 17.8L, Monocytes (%) (Auto) 5.2, Eosinophils (%) (Auto) 4.4H, Basophils (%) (Auto) 0.8, Sodium Level 139, Potassium Level 3.7, Chloride Level 105, Carbon Dioxide Level 26, Anion Gap 8, Blood Urea Nitrogen 19H, Creatinine 1.1, Estimat Glomerular Filtration Rate , Glucose Level 173H, Calcium Level 8.8 Current Medications Medications (Trade) Dose Ordered Sig/Nicole Route PRN Reason Start Time Stop Time Status Last Admin Dose Admin Acetaminophen (Tylenol) 650 mg Q4H PRN ORAL fever 10/21/17 19:30 11/20/17 07:29 Albuterol/ Ipratropium (Albuterol/ Ipratropium) 3 ml Q4H PRN HHN Shortness of Breath 10/21/17 16:45 10/26/17 16:44 Dextrose 1,000 ml @ 50 mls/hr Q20H IV 10/22/17 13:30 11/21/17 13:29 10/24/17 03:42 Heparin Sodium (Porcine) (Heparin 5000 units/ml) 5,000 units EVERY 12 HOURS SUBQ 10/21/17 21:00 11/20/17 08:59 10/24/17 08:42 Meropenem 1 gm/ Sodium Chloride 55 ml @ 110 mls/hr Q12H IVPB 10/22/17 12:00 10/27/17 11:59 10/23/17 23:28 Morphine Sulfate (Morphine Sulfate) 2 mg Q4H PRN IVP Moderate Pain (Pain Scale 4-6) 10/21/17 17:00 10/28/17 16:59 Olanzapine (ZyPREXA) 2.5 mg BEDTIME PRN ORAL anxiety 10/21/17 23:45 11/20/17 23:44 Ondansetron HCl (Zofran) 4 mg Q6H PRN IVP Nausea & Vomiting 10/21/17 17:00 11/20/17 16:59 Phenazopyridine HCl (Pyridium) 100 mg DAILYPRN PRN ORAL dysuria 10/22/17 09:00 11/21/17 08:59 Polyethylene Glycol (Miralax) 17 gm DAILYPRN PRN ORAL Constipation 10/22/17 07:30 11/20/17 07:29 Tamsulosin HCl (Flomax) 0.4 mg BEDTIME ORAL 10/21/17 21:00 11/20/17 20:59 10/23/17 20:19 Temazepam (Restoril) 15 mg HSPRN PRN ORAL Insomnia 10/21/17 21:00 10/28/17 20:59 Margie Britton MD Oct 24, 2017 13:30
--- NOTE | 2017-10-24 13:41 | Diagnostic Imaging Report ---
Indications: Penile erythema and scrotal pain Technique: Grayscale and duplex images of the scrotum Comparison: none Findings:The right testicle measures 4.2cm in length. It demonstrates normal echogenicity. Normal Doppler flow. Normal epididymis. The left testicle measures 4.4 cm in length. It demonstrates normal echogenicity and normal Doppler flow. Normal epididymis. No definite scrotal abscess demonstrated Impression: Negative
[2017-10-24] MEDS: Meropenem 1 GM in NS 55 ML IVPB SCH (13:50)
--- NOTE | 2017-10-24 14:14 | Infectious Diseases Prog Note ---
Assessment/Plan Assessment/Plan Severe Sepsis, Sp balanoposthitis/penile cellulitis - no erythema ( 10/22 ) resolved cellulitis - r/o STDs -testicular US: No definite scrotal abscess demonstrated -UTI US Kid : neg -u/a wbc 30-40, nit -, leuk +3; ucx >100K E.coli (arreaga S) -Bcx NTD -CXR: No definite focal consolidation, pleural effusion or pneumothorax. Fever/ Leukocytosis resolved Transaminitis improving JOVANI, resolved Recent Probable UTI 09/2017, s/p Rx (+difficulty urination, leukocytosis) -u/a wbc 30-40, nit neg, leuk +3; ucx >100K P. stuarti (R Amp, ancef, Genta; I Cipro/levo, Zosyn; CEftriaxone reported as S- however Anthony 8 0 ?resistant), S. Meropenem - hx of UTI 07/2017: MDR Proteus mirabilis BPH COPD DM2 cachexia chronic left shoulder dislocation Dementia assisted resident Plan: - Switch Meropenem d# 07/16- to PO Bactrim DS 1 tab bid for UTI and cellulitis -monitor Cr and electrolytes -10/22 SP IV Vancomycin # 2 -10/21 Sp one time dose of AMikacin and Cefepime -10/02 SP Ertapenem #5 -09/27 SP Meropenem #2 -09/24 SP Keflex and Ertapenem x1 -07/2017 SP Ertapenem #5 URology fup -f/u cx -Monitor CBC/CMP, temperatures Subjective Allergies: Coded Allergies: No Known Allergies (Unverified , 07/19/17) Subjective afebrile in >72hrs no leukocytosis Cr and LFTs improving Bcx NTD Objective Vital Signs Last 24 Hour Vital Signs Date Time Temp Pulse Resp B/P (MAP) Pulse Ox O2 Delivery O2 Flow Rate FiO2 10/24/17 12:00 98.0 92 20 113/52 (72) 98 98.0 10/24/17 10:18 83 18 Room Air 21 10/24/17 09:00 Room Air 10/24/17 08:00 98.5 92 20 105/52 (69) 98 98.5 10/24/17 04:00 98.1 72 19 127/59 (81) 96 98.1 10/24/17 00:00 98.1 84 16 128/57 (80) 96 98.1 10/23/17 21:00 Room Air 10/23/17 20:00 98.6 83 18 127/50 (75) 96 98.6 10/23/17 17:44 72 16 Room Air 21 10/23/17 16:00 98.1 86 19 124/56 (78) 96 98.1 Height (Feet): 5 Height (Inches): 8.00 Weight (Pounds): 120 Laboratory Tests Test 10/24/17 09:00 White Blood Count 9.6 K/UL (4.8-10.8) Red Blood Count 4.38 M/UL (4.70-6.10) L Hemoglobin 11.6 G/DL (14.2-18.0) L Hematocrit 35.8 % (42.0-52.0) L Mean Corpuscular Volume 82 FL (80-99) Mean Corpuscular Hemoglobin 26.4 PG (27.0-31.0) L Mean Corpuscular Hemoglobin Concent 32.2 G/DL (32.0-36.0) Red Cell Distribution Width 15.7 % (11.6-14.8) H Platelet Count 580 K/UL (150-450) H Mean Platelet Volume 6.7 FL (6.5-10.1) Neutrophils (%) (Auto) 71.8 % (45.0-75.0) Lymphocytes (%) (Auto) 17.8 % (20.0-45.0) L Monocytes (%) (Auto) 5.2 % (1.0-10.0) Eosinophils (%) (Auto) 4.4 % (0.0-3.0) H Basophils (%) (Auto) 0.8 % (0.0-2.0) Sodium Level 139 MMOL/L (136-145) Potassium Level 3.7 MMOL/L (3.5-5.1) Chloride Level 105 MMOL/L (98-107) Carbon Dioxide Level 26 MMOL/L (21-32) Anion Gap 8 mmol/L (5-15) Blood Urea Nitrogen 19 mg/dL (7-18) H Creatinine 1.1 MG/DL (0.55-1.30) Estimat Glomerular Filtration Rate mL/min (>60) Glucose Level 173 MG/DL (74-106) H Calcium Level 8.8 MG/DL (8.5-10.1) Current Medications Medications (Trade) Dose Ordered Sig/Nicole Route PRN Reason Start Time Stop Time Status Last Admin Dose Admin Acetaminophen (Tylenol) 650 mg Q4H PRN ORAL fever 10/21/17 19:30 11/20/17 07:29 Albuterol/ Ipratropium (Albuterol/ Ipratropium) 3 ml Q4H PRN HHN Shortness of Breath 10/21/17 16:45 10/26/17 16:44 Dextrose 1,000 ml @ 50 mls/hr Q20H IV 10/22/17 13:30 11/21/17 13:29 10/24/17 03:42 Heparin Sodium (Porcine) (Heparin 5000 units/ml) 5,000 units EVERY 12 HOURS SUBQ 10/21/17 21:00 11/20/17 08:59 10/24/17 08:42 Meropenem 1 gm/ Sodium Chloride 55 ml @ 110 mls/hr Q12H IVPB 10/22/17 12:00 10/27/17 11:59 10/24/17 13:50 Morphine Sulfate (Morphine Sulfate) 2 mg Q4H PRN IVP Moderate Pain (Pain Scale 4-6) 10/21/17 17:00 10/28/17 16:59 Olanzapine (ZyPREXA) 2.5 mg BEDTIME PRN ORAL anxiety 10/21/17 23:45 11/20/17 23:44 Ondansetron HCl (Zofran) 4 mg Q6H PRN IVP Nausea & Vomiting 10/21/17 17:00 11/20/17 16:59 Phenazopyridine HCl (Pyridium) 100 mg DAILYPRN PRN ORAL dysuria 10/22/17 09:00 11/21/17 08:59 Polyethylene Glycol (Miralax) 17 gm DAILYPRN PRN ORAL Constipation 10/22/17 07:30 11/20/17 07:29 Tamsulosin HCl (Flomax) 0.4 mg BEDTIME ORAL 10/21/17 21:00 11/20/17 20:59 10/23/17 20:19 Temazepam (Restoril) 15 mg HSPRN PRN ORAL Insomnia 10/21/17 21:00 10/28/17 20:59 Radha Barron M.D. Oct 24, 2017 14:14
[2017-10-24 16:00] VITALS: BP 126/49
[2017-10-24] MEDS: Bactrim-DS 1 tab ORAL SCH (17:20)
--- NOTE | 2017-10-24 19:19 | General Progress Note ---
Assessment/Plan Assessment/Plan encephalopathy zyprexa zyprexa prn Subjective Date patient seen: Oct 24, 2017 Neurologic/Psychiatric: Reports: anxiety, depressed, emotional problems Allergies: Coded Allergies: No Known Allergies (Unverified , 07/19/17) Subjective the pt is less agitated and calmer. Objective Last 24 Hour Vital Signs Date Time Temp Pulse Resp B/P (MAP) Pulse Ox O2 Delivery O2 Flow Rate FiO2 10/24/17 16:00 98.4 99 20 126/49 (74) 95 98.4 10/24/17 12:00 98.0 92 20 113/52 (72) 98 98.0 10/24/17 10:18 83 18 Room Air 21 10/24/17 09:00 Room Air 10/24/17 08:00 98.5 92 20 105/52 (69) 98 98.5 10/24/17 04:00 98.1 72 19 127/59 (81) 96 98.1 10/24/17 00:00 98.1 84 16 128/57 (80) 96 98.1 10/23/17 21:00 Room Air 10/23/17 20:00 98.6 83 18 127/50 (75) 96 98.6 Intake and Output 10/23/17 10/24/17 19:00 07:00 Intake Total 200 ml 605 ml Output Total 400 ml 650 ml Balance -200 ml -45 ml Intake Oral 200 ml IV Total 605 ml Output Urine Total 400 ml 650 ml # Voids 1 # Bowel Movements 1 Laboratory Tests 10/24/17 09:00: White Blood Count 9.6, Red Blood Count 4.38L, Hemoglobin 11.6L, Hematocrit 35.8L , Mean Corpuscular Volume 82, Mean Corpuscular Hemoglobin 26.4L, Mean Corpuscular Hemoglobin Concent 32.2, Red Cell Distribution Width 15.7H, Platelet Count 580H, Mean Platelet Volume 6.7, Neutrophils (%) (Auto) 71.8, Lymphocytes (%) (Auto) 17.8L, Monocytes (%) (Auto) 5.2, Eosinophils (%) (Auto) 4.4H, Basophils (%) (Auto) 0.8, Sodium Level 139, Potassium Level 3.7, Chloride Level 105, Carbon Dioxide Level 26, Anion Gap 8, Blood Urea Nitrogen 19H, Creatinine 1.1, Estimat Glomerular Filtration Rate , Glucose Level 173H, Calcium Level 8.8 Height (Feet): 5 Height (Inches): 8.00 Weight (Pounds): 120 General Appearance: no apparent distress, alert Xiao Machado MD Oct 24, 2017 19:19
[2017-10-24 20:00] VITALS: BP 140/66
[2017-10-24] MEDS: Tamsulosin 0.4mg cap ORAL SCH (20:05)
--- NOTE | 2017-10-24 21:09 | Urology Progress Note ---
Assessment/Plan Problem List: (1) Balanoposthitis ICD Codes: N47.6 - Balanoposthitis SNOMED: 44400104 (2) UTI (urinary tract infection) ICD Codes: N39.0 - Urinary tract infection, site not specified SNOMED: 56973202 Status: doing well, stable Status Narrative Improved on IV abx. Assessment/Plan Balanitis/ UTI. Improved on triple IV abx. PE-resolution of same D/C Peña tomorrow Available prn. Subjective Date patient seen: Oct 24, 2017 Time patient seen: 21:05 ROS Limited/Unobtainable: No Allergies: Coded Allergies: No Known Allergies (Unverified , 07/19/17) Subjective No events. Feels better Objective Last 24 Hour Vital Signs Date Time Temp Pulse Resp B/P (MAP) Pulse Ox O2 Delivery O2 Flow Rate FiO2 10/24/17 20:00 99.5 92 17 140/66 (90) 97 99.5 10/24/17 16:00 98.4 99 20 126/49 (74) 95 98.4 10/24/17 12:00 98.0 92 20 113/52 (72) 98 98.0 10/24/17 10:18 83 18 Room Air 21 10/24/17 09:00 Room Air 10/24/17 08:00 98.5 92 20 105/52 (69) 98 98.5 10/24/17 04:00 98.1 72 19 127/59 (81) 96 98.1 10/24/17 00:00 98.1 84 16 128/57 (80) 96 98.1 Intake and Output 10/23/17 10/24/17 19:00 07:00 Intake Total 200 ml 605 ml Output Total 400 ml 650 ml Balance -200 ml -45 ml Intake Oral 200 ml IV Total 605 ml Output Urine Total 400 ml 650 ml # Voids 1 # Bowel Movements 1 Laboratory Tests 10/24/17 09:00: White Blood Count 9.6, Red Blood Count 4.38L, Hemoglobin 11.6L, Hematocrit 35.8L , Mean Corpuscular Volume 82, Mean Corpuscular Hemoglobin 26.4L, Mean Corpuscular Hemoglobin Concent 32.2, Red Cell Distribution Width 15.7H, Platelet Count 580H, Mean Platelet Volume 6.7, Neutrophils (%) (Auto) 71.8, Lymphocytes (%) (Auto) 17.8L, Monocytes (%) (Auto) 5.2, Eosinophils (%) (Auto) 4.4H, Basophils (%) (Auto) 0.8, Sodium Level 139, Potassium Level 3.7, Chloride Level 105, Carbon Dioxide Level 26, Anion Gap 8, Blood Urea Nitrogen 19H, Creatinine 1.1, Estimat Glomerular Filtration Rate , Glucose Level 173H, Calcium Level 8.8 Height (Feet): 5 Height (Inches): 8.00 Weight (Pounds): 120 General Appearance: WD/WN, no apparent distress, alert Abdomen: non tender, soft Genitourinary/Rectal: normal genital exam, other - Previous swelling/ TTP resolved. Extremities: normal range of motion, non-tender Kolby Brady M.D. Oct 24, 2017 21:09
[2017-10-25] VITALS: BP 133/68
--- NOTE | 2017-10-25 02:30 | Progress Note ---
DATE: 10/24/2017 SUBJECTIVE: This is a 77-year-old male patient with sepsis. Due to sepsis, he has increased agitation and altered mental status, worsened by the stress of his medical illness. That is why, his attending physician has requested daily psychiatric consultations. I saw him and assessed at the bedside today. MENTAL STATUS EVALUATION: This is a 77-year-old male. Appearance is disheveled. Attitude, irritable and agitated. Affect, guarded and restricted. Intellect poor. Mood, depressed and anxious. Motor activity, psychomotor agitation. Attention span is poor. Orientation x2. Speech is pressured. Thought process, disorganized and illogical. Thought process, auditory hallucinations and paranoid delusions. Insight and judgement is poor. DIAGNOSIS: Major depression with psychotic features, rule out paranoid schizophrenia. PLAN: Treat him with Zyprexa 2.5 mg at bedtime p.r.n. anxiety and agitation. An 18 to 20 minutes of insight-oriented psychotherapy was provided today to help increase this patient's insight into his symptoms of his mental illness and help him to have better impulse control and behavior and better thought process. Chart reviewed. Discussed with staff. Seen and assessed at bedside. Lea Dodd M.D. DR: CLARENCE JOB#: [id number] CC:
--- NOTE | 2017-10-25 03:00 | Consultation ---
DATE OF CONSULTATION: 10/24/2017 PSYCHOTHERAPY CONSULTATION PROGRESS NOTE CONSULTING PHYSICIAN: Tacho Rivera M.D. TREATING ATTENDING PHYSICIAN: Samir Cramer D.O. HISTORY OF PRESENT ILLNESS: The patient is a 77-year-old male patient with history of UTI, sepsis, leukocytosis, and weakness who was brought in from [facility]. The patient is very confused, lethargic, agitated, and for this reason he was referred for psychotherapeutic services. This clinician assessed this patient. The patient states that he believes that people walking down the hallway are crazy according to the staff report. The patient states that he has been admitted to the hospital for medical treatment, however, he is very forgetful, does not know where he is being treated for medically, he does not know the nursing facility that he was brought in from and he was unable to name it. He was confused, disoriented, and a poor historian however able to communicate. The patient is very disoriented at this time. There is no evidence of suicidal or homicidal thoughts of ideation however he does have a history of paranoid schizophrenia. PAST MEDICAL HISTORY: Significant for COPD, decubitus ulcers, BPH. ALLERGIES: The patient has no known drug allergies. SUBSTANCE ABUSE HISTORY: There is no indication for alcohol use, illicit substance use, or smoking cigarette. PAST PSYCHIATRIC HISTORY: The patient has a history of schizophrenia and has been treated with psychotropic medications in the past. MENTAL STATUS EXAMINATION: The patient is alert and oriented to person and place. Mood is anxious. Affect is congruent. Thought process is guarded. Thought content, confused. The patient has poor attention and concentration. Poor insight, judgment, and impulse control. PLAN: This clinician assessed this patient, assessed the patient's mental status. Provided the patient with reality orientation. Provide the patient with supportive psychotherapy. I encouraged the patient to participate in treatment milieu. Continue with behavioral management. This clinician has reviewed the patient's chart and discussed the treatment with treatment team. Tacho Rivera PsyD. DR: RICARDO JOB#: [id number] CC:
[2017-10-25 04:00] VITALS: BP 115/51
[2017-10-25 07:12] LABS: ANION GAP 5 mmol/L (5-15); BLOOD UREA NITROGEN 16 mg/dL (7-18); CALCIUM 8.3 MG/DL (8.5-10.1); CARBON DIOXIDE 30 MMOL/L (21-32); CHLORIDE 103 MMOL/L (98-107); CREATININE 1.2 MG/DL (0.55-1.30); POTASSIUM 3.6 MMOL/L (3.5-5.1); SODIUM 138 MMOL/L (136-145)
[2017-10-25 07:22] LABS: BASOPHILS % (AUTO) 1.1 % (0.0-2.0); EOSINOPHILS % (AUTO) 6.9 % (0.0-3.0); HEMATOCRIT 31.1 % (42.0-52.0); HEMOGLOBIN 10.2 G/DL (14.2-18.0); LYMPHOCYTES % (AUTO) 17.2 % (20.0-45.0); MEAN CORPUSCULAR VOLUME 81 FL (80-99); MONOCYTES % (AUTO) 6.1 % (1.0-10.0); NEUTROPHILS % (AUTO) 68.7 % (45.0-75.0); PLATELET COUNT 515 K/UL (150-450); RED BLOOD COUNT 3.84 M/UL (4.70-6.10); RED CELL DISTRIBUTION WIDTH 14.8 % (11.6-14.8); WHITE BLOOD COUNT 8.8 K/UL (4.8-10.8)
--- NOTE | 2017-10-25 07:57 | Nephrology Progress Note ---
Assessment/Plan Assessment 1. Acute renal failure. . 2. 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 3. Malnutrition. 4. Penile cellulitis and infection. 5.hypernatremia Plan continue d5 at 40 cc/hour monitoring renal function closely replace electrolyte as need it avoid NSAID Subjective Subjective no complaints Objective Objective Last 24 Hour Vital Signs Date Time Temp Pulse Resp B/P (MAP) Pulse Ox O2 Delivery O2 Flow Rate FiO2 10/25/17 07:22 Room Air 10/25/17 04:00 99.1 85 17 115/51 (72) 96 99.1 10/25/17 00:00 98.9 95 19 133/68 (89) 97 98.9 10/24/17 21:00 Room Air 10/24/17 20:00 99.5 92 17 140/66 (90) 97 99.5 10/24/17 16:00 98.4 99 20 126/49 (74) 95 98.4 10/24/17 12:00 98.0 92 20 113/52 (72) 98 98.0 10/24/17 10:18 83 18 Room Air 21 10/24/17 09:00 Room Air 10/24/17 08:00 98.5 92 20 105/52 (69) 98 98.5 Intake and Output 10/24/17 10/25/17 19:00 07:00 Intake Total 500 ml 1030 ml Output Total 1500 ml Balance 500 ml -470 ml Intake Oral 480 ml IV Total 500 ml 550 ml Output Urine Total 1500 ml # Voids 1 # Bowel Movements 1 Laboratory Tests 10/24/17 09:00: White Blood Count 9.6, Red Blood Count 4.38L, Hemoglobin 11.6L, Hematocrit 35.8L , Mean Corpuscular Volume 82, Mean Corpuscular Hemoglobin 26.4L, Mean Corpuscular Hemoglobin Concent 32.2, Red Cell Distribution Width 15.7H, Platelet Count 580H, Mean Platelet Volume 6.7, Neutrophils (%) (Auto) 71.8, Lymphocytes (%) (Auto) 17.8L, Monocytes (%) (Auto) 5.2, Eosinophils (%) (Auto) 4.4H, Basophils (%) (Auto) 0.8, Sodium Level 139, Potassium Level 3.7, Chloride Level 105, Carbon Dioxide Level 26, Anion Gap 8, Blood Urea Nitrogen 19H, Creatinine 1.1, Estimat Glomerular Filtration Rate , Glucose Level 173H, Calcium Level 8.8 10/25/17 06:15: White Blood Count 8.8, Red Blood Count 3.84L, Hemoglobin 10.2L, Hematocrit 31.1L , Mean Corpuscular Volume 81, Mean Corpuscular Hemoglobin 26.5L, Mean Corpuscular Hemoglobin Concent 32.8, Red Cell Distribution Width 14.8, Platelet Count 515H, Mean Platelet Volume 6.9, Neutrophils (%) (Auto) 68.7, Lymphocytes ( %) (Auto) 17.2L, Monocytes (%) (Auto) 6.1, Eosinophils (%) (Auto) 6.9H, Basophils (%) (Auto) 1.1, Sodium Level 138, Potassium Level 3.6, Chloride Level 103, Carbon Dioxide Level 30, Anion Gap 5, Blood Urea Nitrogen 16, Creatinine 1.2, Estimat Glomerular Filtration Rate , Glucose Level 134H, Calcium Level 8.3L , Rapid Plasma Reagin [Pending], Treponema pallidum Ab (FTA-ABS) [Pending] Height (Feet): 5 Height (Inches): 8.00 Weight (Pounds): 120 Objective HEAD AND NECK: No JVP. No LAD. No thyromegaly. Extraocular movement intact. Pupils are reactive to light and accommodation. LUNGS: Clear to auscultation. CARDIAC: Regular rate and rhythm. S1 and S2. No murmur. No rub. ABDOMEN: Soft, nontender, and nondistended. EXTREMITIES: No edema. No clubbing. No cyanosis. Mesha Day MD Oct 25, 2017 07:57
[2017-10-25 08:00] VITALS: BP 150/56
[2017-10-25] MEDS: Bactrim-DS 1 tab ORAL SCH (08:28)
[2017-10-25] MEDS: Heparin 5000 units/ml inj SUBQ SCH (08:32)
[2017-10-25 12:11] VITALS: BP 124/53
--- NOTE | 2017-10-25 12:51 | Pulmonology Progress Note ---
Assessment/Plan Problems: (1) Sepsis (2) COPD (chronic obstructive pulmonary disease) (3) ARF (acute renal failure) (4) Severe protein-calorie malnutrition Assessment/Plan doing better continue abx check electrolytes check cultures, Urine has Ecoli, pansensitive pt/ot symptomatic treatment Subjective ROS Limited/Unobtainable: No Constitutional: Reports: no symptoms HEENT: Repors: no symptoms Respiratory: Reports: no symptoms Allergies: Coded Allergies: No Known Allergies (Unverified , 07/19/17) Objective Last 24 Hour Vital Signs Date Time Temp Pulse Resp B/P (MAP) Pulse Ox O2 Delivery O2 Flow Rate FiO2 10/25/17 12:11 97.0 60 18 124/53 (76) 96 97.0 10/25/17 09:59 81 18 Room Air 21 10/25/17 09:00 Room Air 10/25/17 08:00 96.4 56 18 150/56 (87) 93 96.4 10/25/17 07:22 Room Air 10/25/17 04:00 99.1 85 17 115/51 (72) 96 99.1 10/25/17 00:00 98.9 95 19 133/68 (89) 97 98.9 10/24/17 21:00 Room Air 10/24/17 20:00 99.5 92 17 140/66 (90) 97 99.5 10/24/17 16:00 98.4 99 20 126/49 (74) 95 98.4 Intake and Output 10/24/17 10/25/17 19:00 07:00 Intake Total 500 ml 1030 ml Output Total 1500 ml Balance 500 ml -470 ml Intake Oral 480 ml IV Total 500 ml 550 ml Output Urine Total 1500 ml # Voids 1 # Bowel Movements 1 General Appearance: cachetic HEENT: normocephalic, atraumatic, anicteric Respiratory/Chest: chest wall non-tender, lungs clear Cardiovascular: normal peripheral pulses, normal rate Abdomen: normal bowel sounds, soft, non tender Genitourinary: normal external genitalia Extremities: no cyanosis 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 II-XII grossly normal, no motor/sensory deficits Lymphatic: no neck adenopathy Musculoskeletal: normal muscle bulk Laboratory Tests 10/25/17 06:15: White Blood Count 8.8, Red Blood Count 3.84L, Hemoglobin 10.2L, Hematocrit 31.1L , Mean Corpuscular Volume 81, Mean Corpuscular Hemoglobin 26.5L, Mean Corpuscular Hemoglobin Concent 32.8, Red Cell Distribution Width 14.8, Platelet Count 515H, Mean Platelet Volume 6.9, Neutrophils (%) (Auto) 68.7, Lymphocytes ( %) (Auto) 17.2L, Monocytes (%) (Auto) 6.1, Eosinophils (%) (Auto) 6.9H, Basophils (%) (Auto) 1.1, Sodium Level 138, Potassium Level 3.6, Chloride Level 103, Carbon Dioxide Level 30, Anion Gap 5, Blood Urea Nitrogen 16, Creatinine 1.2, Estimat Glomerular Filtration Rate , Glucose Level 134H, Calcium Level 8.3L , Rapid Plasma Reagin [Pending], Treponema pallidum Ab (FTA-ABS) [Pending] Current Medications Medications (Trade) Dose Ordered Sig/Nicole Route PRN Reason Start Time Stop Time Status Last Admin Dose Admin Acetaminophen (Tylenol) 650 mg Q4H PRN ORAL fever 10/21/17 19:30 11/20/17 07:29 Albuterol/ Ipratropium (Albuterol/ Ipratropium) 3 ml Q4H PRN HHN Shortness of Breath 10/21/17 16:45 10/26/17 16:44 Dextrose 1,000 ml @ 50 mls/hr Q20H IV 10/22/17 13:30 11/21/17 13:29 10/25/17 01:34 Heparin Sodium (Porcine) (Heparin 5000 units/ml) 5,000 units EVERY 12 HOURS SUBQ 10/21/17 21:00 11/20/17 08:59 10/25/17 08:32 Morphine Sulfate (Morphine Sulfate) 2 mg Q4H PRN IVP Moderate Pain (Pain Scale 4-6) 10/21/17 17:00 10/28/17 16:59 Olanzapine (ZyPREXA) 2.5 mg BEDTIME PRN ORAL anxiety 10/21/17 23:45 11/20/17 23:44 Ondansetron HCl (Zofran) 4 mg Q6H PRN IVP Nausea & Vomiting 10/21/17 17:00 11/20/17 16:59 Phenazopyridine HCl (Pyridium) 100 mg DAILYPRN PRN ORAL dysuria 10/22/17 09:00 11/21/17 08:59 Polyethylene Glycol (Miralax) 17 gm DAILYPRN PRN ORAL Constipation 10/22/17 07:30 11/20/17 07:29 Tamsulosin HCl (Flomax) 0.4 mg BEDTIME ORAL 10/21/17 21:00 11/20/17 20:59 10/24/17 20:05 Temazepam (Restoril) 15 mg HSPRN PRN ORAL Insomnia 10/21/17 21:00 10/28/17 20:59 Trimethoprim/ Sulfamethoxazole (Bactrim-DS) 1 tab TWICE A DAY ORAL 10/24/17 18:00 10/31/17 17:59 10/25/17 08:28 Margie Britton MD Oct 25, 2017 12:51
--- NOTE | 2017-10-25 13:20 | Infectious Diseases Prog Note ---
Assessment/Plan Assessment/Plan Severe Sepsis, Sp balanoposthitis/penile cellulitis - no erythema ( 10/22 ) resolved cellulitis - r/o STDs -testicular US: No definite scrotal abscess demonstrated -UTI US Kid : neg -u/a wbc 30-40, nit -, leuk +3; ucx >100K E.coli (arreaga S) -Bcx NTD -CXR: No definite focal consolidation, pleural effusion or pneumothorax. Fever/ Leukocytosis resolved Transaminitis improving JOVANI, resolved Recent Probable UTI 09/2017, s/p Rx (+difficulty urination, leukocytosis) -u/a wbc 30-40, nit neg, leuk +3; ucx >100K P. stuarti (R Amp, ancef, Genta; I Cipro/levo, Zosyn; CEftriaxone reported as S- however Anthony 8 0 ?resistant), S. Meropenem - hx of UTI 07/2017: MDR Proteus mirabilis BPH COPD DM2 cachexia chronic left shoulder dislocation Dementia long-term resident Plan: - Continue PO Bactrim DS 1 tab bid abx d# 08/15-10for UTI and cellulitis -monitor Cr and electrolytes -10/24 SP Meropenem #4 -10/22 SP IV Vancomycin # 2 -10/21 Sp one time dose of AMikacin and Cefepime -10/02 SP Ertapenem #5 -09/27 SP Meropenem #2 -09/24 SP Keflex and Ertapenem x1 -07/2017 SP Ertapenem #5 URology fup -f/u cx -Monitor CBC/CMP, temperatures Subjective Allergies: Coded Allergies: No Known Allergies (Unverified , 07/19/17) Subjective afebrile no leukocytosis Cr and LFTs improving Bcx NTD Objective Vital Signs Last 24 Hour Vital Signs Date Time Temp Pulse Resp B/P (MAP) Pulse Ox O2 Delivery O2 Flow Rate FiO2 10/25/17 12:11 97.0 60 18 124/53 (76) 96 97.0 10/25/17 09:59 81 18 Room Air 21 10/25/17 09:00 Room Air 10/25/17 08:00 96.4 56 18 150/56 (87) 93 96.4 10/25/17 07:22 Room Air 10/25/17 04:00 99.1 85 17 115/51 (72) 96 99.1 10/25/17 00:00 98.9 95 19 133/68 (89) 97 98.9 10/24/17 21:00 Room Air 10/24/17 20:00 99.5 92 17 140/66 (90) 97 99.5 10/24/17 16:00 98.4 99 20 126/49 (74) 95 98.4 Height (Feet): 5 Height (Inches): 8.00 Weight (Pounds): 120 Laboratory Tests Test 10/25/17 06:15 White Blood Count 8.8 K/UL (4.8-10.8) Red Blood Count 3.84 M/UL (4.70-6.10) L Hemoglobin 10.2 G/DL (14.2-18.0) L Hematocrit 31.1 % (42.0-52.0) L Mean Corpuscular Volume 81 FL (80-99) Mean Corpuscular Hemoglobin 26.5 PG (27.0-31.0) L Mean Corpuscular Hemoglobin Concent 32.8 G/DL (32.0-36.0) Red Cell Distribution Width 14.8 % (11.6-14.8) Platelet Count 515 K/UL (150-450) H Mean Platelet Volume 6.9 FL (6.5-10.1) Neutrophils (%) (Auto) 68.7 % (45.0-75.0) Lymphocytes (%) (Auto) 17.2 % (20.0-45.0) L Monocytes (%) (Auto) 6.1 % (1.0-10.0) Eosinophils (%) (Auto) 6.9 % (0.0-3.0) H Basophils (%) (Auto) 1.1 % (0.0-2.0) Sodium Level 138 MMOL/L (136-145) Potassium Level 3.6 MMOL/L (3.5-5.1) Chloride Level 103 MMOL/L (98-107) Carbon Dioxide Level 30 MMOL/L (21-32) Anion Gap 5 mmol/L (5-15) Blood Urea Nitrogen 16 mg/dL (7-18) Creatinine 1.2 MG/DL (0.55-1.30) Estimat Glomerular Filtration Rate mL/min (>60) Glucose Level 134 MG/DL (74-106) H Calcium Level 8.3 MG/DL (8.5-10.1) L Rapid Plasma Reagin Pending Treponema pallidum Ab (FTA-ABS) Pending Current Medications Medications (Trade) Dose Ordered Sig/Nicole Route PRN Reason Start Time Stop Time Status Last Admin Dose Admin Acetaminophen (Tylenol) 650 mg Q4H PRN ORAL fever 10/21/17 19:30 11/20/17 07:29 Albuterol/ Ipratropium (Albuterol/ Ipratropium) 3 ml Q4H PRN HHN Shortness of Breath 10/21/17 16:45 10/26/17 16:44 Dextrose 1,000 ml @ 50 mls/hr Q20H IV 10/22/17 13:30 11/21/17 13:29 10/25/17 01:34 Heparin Sodium (Porcine) (Heparin 5000 units/ml) 5,000 units EVERY 12 HOURS SUBQ 10/21/17 21:00 11/20/17 08:59 10/25/17 08:32 Morphine Sulfate (Morphine Sulfate) 2 mg Q4H PRN IVP Moderate Pain (Pain Scale 4-6) 10/21/17 17:00 10/28/17 16:59 Olanzapine (ZyPREXA) 2.5 mg BEDTIME PRN ORAL anxiety 10/21/17 23:45 11/20/17 23:44 Ondansetron HCl (Zofran) 4 mg Q6H PRN IVP Nausea & Vomiting 10/21/17 17:00 11/20/17 16:59 Phenazopyridine HCl (Pyridium) 100 mg DAILYPRN PRN ORAL dysuria 10/22/17 09:00 11/21/17 08:59 Polyethylene Glycol (Miralax) 17 gm DAILYPRN PRN ORAL Constipation 10/22/17 07:30 11/20/17 07:29 Tamsulosin HCl (Flomax) 0.4 mg BEDTIME ORAL 10/21/17 21:00 11/20/17 20:59 10/24/17 20:05 Temazepam (Restoril) 15 mg HSPRN PRN ORAL Insomnia 10/21/17 21:00 10/28/17 20:59 Trimethoprim/ Sulfamethoxazole (Bactrim-DS) 1 tab TWICE A DAY ORAL 10/24/17 18:00 7/23/18 17:59 10/25/17 08:28 Radha Barron M.D. Oct 25, 2017 13:20
--- NOTE | 2017-10-25 15:00 | General Progress Note ---
Assessment/Plan Problem List: (1) ARF (acute renal failure) ICD Codes: N17.9 - Acute kidney failure, unspecified SNOMED: 13937300 Qualifiers: Qualified Codes: N17.9 - Acute kidney failure, unspecified (2) UTI (urinary tract infection) ICD Codes: N39.0 - Urinary tract infection, site not specified SNOMED: 42486864 (3) Sepsis ICD Codes: A41.9 - Sepsis, unspecified organism SNOMED: 53775303 Qualifiers: Qualified Codes: A41.9 - Sepsis, unspecified organism (4) Weak ICD Codes: R53.1 - Weakness SNOMED: 95692389 (5) Decubitus ulcer, heel, left, unstageable ICD Codes: L89.620 - Pressure ulcer of left heel, unstageable SNOMED: 733137678 (6) Anemia ICD Codes: D64.9 - Anemia, unspecified SNOMED: 904104971 Status: stable, progressing Assessment/Plan ot pt diet abx wound care cbc bmp am dc plan snf Subjective Constitutional: Reports: weakness Allergies: Coded Allergies: No Known Allergies (Unverified , 07/19/17) All Systems: reviewed and negative except above Subjective sleepy in bed calm Objective Last 24 Hour Vital Signs Date Time Temp Pulse Resp B/P (MAP) Pulse Ox O2 Delivery O2 Flow Rate FiO2 10/25/17 12:11 97.0 60 18 124/53 (76) 96 97.0 10/25/17 09:59 81 18 Room Air 21 10/25/17 09:00 Room Air 10/25/17 08:00 96.4 56 18 150/56 (87) 93 96.4 10/25/17 07:22 Room Air 10/25/17 04:00 99.1 85 17 115/51 (72) 96 99.1 10/25/17 00:00 98.9 95 19 133/68 (89) 97 98.9 10/24/17 21:00 Room Air 10/24/17 20:00 99.5 92 17 140/66 (90) 97 99.5 10/24/17 16:00 98.4 99 20 126/49 (74) 95 98.4 Intake and Output 10/24/17 10/25/17 19:00 07:00 Intake Total 500 ml 1030 ml Output Total 1500 ml Balance 500 ml -470 ml Intake Oral 480 ml IV Total 500 ml 550 ml Output Urine Total 1500 ml # Voids 1 # Bowel Movements 1 Laboratory Tests 10/25/17 06:15: White Blood Count 8.8, Red Blood Count 3.84L, Hemoglobin 10.2L, Hematocrit 31.1L , Mean Corpuscular Volume 81, Mean Corpuscular Hemoglobin 26.5L, Mean Corpuscular Hemoglobin Concent 32.8, Red Cell Distribution Width 14.8, Platelet Count 515H, Mean Platelet Volume 6.9, Neutrophils (%) (Auto) 68.7, Lymphocytes ( %) (Auto) 17.2L, Monocytes (%) (Auto) 6.1, Eosinophils (%) (Auto) 6.9H, Basophils (%) (Auto) 1.1, Sodium Level 138, Potassium Level 3.6, Chloride Level 103, Carbon Dioxide Level 30, Anion Gap 5, Blood Urea Nitrogen 16, Creatinine 1.2, Estimat Glomerular Filtration Rate , Glucose Level 134H, Calcium Level 8.3L , Rapid Plasma Reagin [Pending], Treponema pallidum Ab (FTA-ABS) [Pending] Height (Feet): 5 Height (Inches): 8.00 Weight (Pounds): 120 General Appearance: lethargic EENT: normal ENT inspection Neck: normal alignment Cardiovascular: normal peripheral pulses, normal rate, regular rhythm Respiratory/Chest: chest wall non-tender, lungs clear, normal breath sounds Abdomen: normal bowel sounds, non tender, soft Extremities: normal inspection Edema: no edema noted Arm (L), no edema noted Arm (R), no edema noted Leg (L), no edema noted Leg (R), no edema noted Pedal (L), no edema noted Pedal (R), no edema noted Generalized Neurologic: motor weakness Skin: normal pigmentation, warm/dry Samir Cramer DO Oct 25, 2017 15:00
[2017-10-25 15:59] VITALS: BP 121/59
[2017-10-25 20:00] VITALS: BP 143/71
[2017-10-25] MEDS ORDERED: Bactrim-DS 1 tab ORAL SCH (21:00)
--- NOTE | 2017-10-25 23:14 | General Progress Note ---
Assessment/Plan Status: stable, progressing Assessment/Plan encephalopathy zyprexa zyprexa prn Subjective Date patient seen: Oct 25, 2017 Neurologic/Psychiatric: Reports: anxiety Allergies: Coded Allergies: No Known Allergies (Unverified , 07/19/17) Subjective the pt is less agitated and calmer. the pt is still confused Objective Last 24 Hour Vital Signs Date Time Temp Pulse Resp B/P (MAP) Pulse Ox O2 Delivery O2 Flow Rate FiO2 10/25/17 20:00 97.6 91 18 143/71 (95) 94 97.6 10/25/17 15:59 97.7 88 19 121/59 (79) 96 97.7 10/25/17 12:11 97.0 60 18 124/53 (76) 96 97.0 10/25/17 09:59 81 18 Room Air 21 10/25/17 09:00 Room Air 10/25/17 08:00 96.4 56 18 150/56 (87) 93 96.4 10/25/17 07:22 Room Air 10/25/17 04:00 99.1 85 17 115/51 (72) 96 99.1 10/25/17 00:00 98.9 95 19 133/68 (89) 97 98.9 Intake and Output 10/24/17 10/25/17 19:00 07:00 Intake Total 500 ml 1030 ml Output Total 1500 ml Balance 500 ml -470 ml Intake Oral 480 ml IV Total 500 ml 550 ml Output Urine Total 1500 ml # Voids 1 # Bowel Movements 1 Laboratory Tests 10/25/17 06:15: White Blood Count 8.8, Red Blood Count 3.84L, Hemoglobin 10.2L, Hematocrit 31.1L , Mean Corpuscular Volume 81, Mean Corpuscular Hemoglobin 26.5L, Mean Corpuscular Hemoglobin Concent 32.8, Red Cell Distribution Width 14.8, Platelet Count 515H, Mean Platelet Volume 6.9, Neutrophils (%) (Auto) 68.7, Lymphocytes ( %) (Auto) 17.2L, Monocytes (%) (Auto) 6.1, Eosinophils (%) (Auto) 6.9H, Basophils (%) (Auto) 1.1, Sodium Level 138, Potassium Level 3.6, Chloride Level 103, Carbon Dioxide Level 30, Anion Gap 5, Blood Urea Nitrogen 16, Creatinine 1.2, Estimat Glomerular Filtration Rate , Glucose Level 134H, Calcium Level 8.3L , Rapid Plasma Reagin [Pending], Treponema pallidum Ab (FTA-ABS) [Pending] Height (Feet): 5 Height (Inches): 8.00 Weight (Pounds): 120 General Appearance: no apparent distress, alert, confused Xiao Machado MD Oct 25, 2017 23:14
--- NOTE | 2017-10-26 11:30 | Progress Note ---
DATE: 10/24/2017 NOTE: POOR AUDIO PSYCHOTHERAPY CONSULTATION PROGRESS NOTE TREATING ATTENDING PHYSICIAN: Samir Cramer D.O. SUBJECTIVE: This patient is a 77-year-old male patient. The patient remains confused and disorganized in his thought process. thought process place and time. Continues to have feelings of helplessness and depression and agitation. He is able to communicate . MENTAL STATUS EVALUATION: Alert and oriented to self and place. Mood is irritable. Affect is congruent. Thought process disorganized. Thought content, confused. The patient is stating that he believes that people reality orientation and supportive psychotherapy. . This clinician has reviewed the patient's chart and discussed the treatment with treating team DIAGNOSIS: Major depressive disorder with psychotic features. Tacho Rivera PsyD. DR: RICARDO JOB#: [id number] CC:
--- NOTE | 2017-10-27 10:09 | Discharge Summary ---
Discharge Summary Discharge Summary _ DATE OF ADMISSION: 10/21/2017 DATE OF DISCHARGE: 10/25/2017 REASON FOR ADMISSION: 77 years old male with past medical history of diabetes,urinary tract infection ,psychiatric disorder, presented with complaint of redness to his penis. Patient by himself was a poor historian and unable to provide sufficient information. Upon evaluation noted leukocytosis WBC 18.8, mild anemia hemoglobin 11.0 hematocrit 33.5. Evidence of renal failure with BUN 94 and creatinine 2.7. AST 95 ALT 136. Vital signs revealed fever -102.9, tachycardia 111. Chest x-ray revealed no acute cardiopulmonary pathology. Urinalysis with evidence of UTI. Patient admitted with diagnosis of severe sepsis, urinary tract infection, acute renal failure , phimosis, penile cellulitis, anemia, transaminitis. CONSULTANTS: pulmonary Dr. Britton ID specialist Erika low pressure boiler tender urologist Dr. Brady psychiatrist Dr. Dodd, [facility] COURSE: Patient admitted and started on aggressive fluid resuscitation. Patient pancultured and started on empiric antibiotics. Infectious disease doctor closely followed. Urine culture grew Escherichia coli. Patient was on antibiotic and Pyridium. Testicular ultrasound revealed no definite scrotal abscess. Fever and leukocytosis resolved. Penile cellulitis resolving. Infectious disease specialist recommended to continue on Bactrim at the alf facility to complete the course for urinary tract infection and cellulitis. RPR was negative Marketing Lead closely followed. Renal parameters , electrolytes were closely monitored, electrolytes were corrected as needed, nephrotoxins were avoided. Renal ultrasound revealed no evidence of hydronephrosis and normal kidneys echogenicity bilaterally. Urinalysis with +3 protein. Urine random protein elevated. According to low pressure boiler tender , patient had chronic renal insufficiency secondary to diabetic nephropathy versus hypertensive nephrosclerosis. With IV hydration, creatinine down to normal. Urologist seen and evaluated the patient. According to urologist , patient had no evidence of Lei gangrene or other processes as well that would require surgical intervention. He recommended antibiotic treatment for 10-14 days. Patient had baseline.phimoses. Patient had balanoposthitis with penile cellulitics, which was responded to treatment with IV antibiotics. Supplemental oxygen and pulmonary toilet provided as needed. Pain management was addressed. DVT prophylaxis provided. Bowel regimen instituted. Supportive care provided. Psychiatry seen and evaluated patient and diagnosed patient with major depressive disorder with psychotic feature, paranoid schizophrenia and encephalopathy. Psychiatrist optimized psychiatric medication regimen. Patient was working with physical and occupational therapists. Dietary recommendations implemented in plan of care to improve nutritional status. LFT were closely monitored. Transaminitis was likely due to shock liver, secondary to sepsis. LFT trending down ,no abdominal complaints. Hemoglobin and hematocrit were closely monitored with goal to keep hemoglobin above 7 ,remained stable. Patient clinically improved and was stable for discharge to alf facility FINAL DIAGNOSES: Severe sepsis Escherichia coli UTI Penile cellulitis Acute renal failure/possible acute tubular necrosis on chronic renal insufficiency -resolved Dehydration Severe protein calorie malnutrition Encephalopathy Major depressive disorder with psychotic feature Paranoid schizophrenia Anemia Transaminitis Proteinuria DISCHARGE MEDICATIONS: See Medication Reconciliation list. DISCHARGE INSTRUCTIONS: Patient was discharged to alf facility. Follow up with medical doctor at the facility. I have been assigned to dictate discharge summary for this account. I was not involved in the patient's management. Aster Christensen NP Oct 27, 2017 10:09
== END 2017-10-25 20:50 | DRG 871 ==
LOC: EDBD 22:44 → EMR 22:59 → 2E 10-21 01:41 → EDBEDREQ 10-21 02:26 → 4W 10-21 16:14
DX: A41.9 Sepsis, unspecified organism (principal); E43 Unspecified severe protein-calorie malnutrition; N17.0 Acute kidney failure with tubular necrosis; G93.40 Encephalopathy, unspecified; N39.0 Urinary tract infection, site not specified; F32.3 Major depressive disorder, single episode, severe with psychotic features; E87.0 Hyperosmolality and hypernatremia; F20.0 Paranoid schizophrenia; R65.20 Severe sepsis without septic shock; F03.90 Unspecified dementia, unspecified severity, without behavioral disturbance, psychotic disturbance, mood disturbance, and anxiety; J44.9 Chronic obstructive pulmonary disease, unspecified; N40.0 Benign prostatic hyperplasia without lower urinary tract symptoms; N48.22 Cellulitis of corpus cavernosum and penis; M24.412 Recurrent dislocation, left shoulder; E86.0 Dehydration; E11.22 Type 2 diabetes mellitus with diabetic chronic kidney disease; N18.9 Chronic kidney disease, unspecified; L89.620 Pressure ulcer of left heel, unstageable; D64.9 Anemia, unspecified; B96.20 Unspecified Escherichia coli [E. coli] as the cause of diseases classified elsewhere; N47.6 Balanoposthitis; I12.9 Hypertensive chronic kidney disease with stage 1 through stage 4 chronic kidney disease, or unspecified chronic kidney disease; R74.0 Nonspecific elevation of levels of transaminase and lactic acid dehydrogenase [LDH]
CPT/HCPCS: 36415; 71045; 76770; 76870; 80048; 80053; 81001; 81003; 82043; 82044; 82550; 82553; 82570; 83605; 84133; 84300; 84484; 84550; 85025; 85610; 85730; 86592; 86780; 87040; 87081; 87086; 87181; 89050; 93005; 94664; 97802; 97803; 99285

== ENCOUNTER 2018-03-08 20:07 | Inpatient (IN) | payer MEDICARE, MEDICAID ==
[~2018-03-08] VITALS: Ht 180.3 cm; Wt 60.5 kg
[2018-03-08 20:39] VITALS: BP 170/87
--- NOTE | 2018-03-08 20:55 | Emergency Room Report ---
History of Present Illness General Chief Complaint: Male Urogenital Problems Source: Patient, EMS Present Illness HPI Patient presents emergency department today complaining of penile pain abdominal discomfort suprapubic discomfort and fullness. Patient does not speak Romansh very well appears to be a little confused currently staying at a assisted. No other complaints are noted. Symptoms noted to be moderate to severe.No other modifying factors. No other associated signs and symptoms. No other complaints were noted. Allergies: Coded Allergies: No Known Allergies (Unverified , 07/19/17) Patient History Past Medical History: DM PMH Narrative phimosis, balanitis, urinary retention Social History Narrative stays at a assisted Reviewed Nursing Documentation: PMH: Agreed; PSxH: Agreed Nursing Documentation-PMH Hx Diabetes: Yes Hx Cancer: No Hx Gastrointestinal Problems: No - dysphagia Hx Weakness: Yes Review of Systems All Other Systems: limited - Poor mental status Physical Exam Vital Signs Date Time Temp Pulse Resp B/P (MAP) Pulse Ox O2 Delivery O2 Flow Rate FiO2 03/08/18 20:12 98.4 140 40 170/87 94 Room Air Sp02 EP Interpretation: reviewed, normal General Appearance: moderate distress Head: atraumatic Eyes: bilateral eye normal inspection ENT: moist mucus membranes Neck: normal inspection, full range of motion, supple Respiratory: normal inspection, lungs clear Cardiovascular #1: regular rate, rhythm Gastrointestinal: other - Distended, tender over suprapubic region Genitourinary: no CVA tenderness, other - Phimosis,, irritated foreskin, urine appears trapped in foreskin Musculoskeletal: normal inspection, back normal, normal range of motion Neurologic: alert, responsive Psychiatric: normal inspection Skin: normal color Procedures Additional Procedure Procedure Narrative Patient apparently has severe phimosis and urine is able to get out. Procedure note: Attempt at placing a straight cath was unsuccessful because the severity of phimosis. Using a catheter from a 20-gauge IV I was able to gently open up the phimosis and patient was able to urinate. There is no comp lesions associate a procedure patient told procedure without difficulty. Patient appear more comfortable. Medical Decision Making Diagnostic Impression: Primary Impression: Phimosis Additional Impression: Urinary retention ER Course Patient presents emergency department today with severe discomfort urinary retention. Differential considerations include severe phimosis obstruction of the urethra is prosthetic hypertrophy just name a few.Given the severity of the patient's presentation I felt this is a highly complex patient. This patient required extensive workup. I was able to help him urinate some patient will still require the evaluation of a urologist. Given the patient is able urinate at this time likely can obtain urology consultation in the morning. We'll admit the patient further treatment. Last Vital Signs Date Time Temp Pulse Resp B/P (MAP) Pulse Ox O2 Delivery O2 Flow Rate FiO2 03/08/18 20:12 98.4 140 40 170/87 94 Room Air Status: improved Disposition: ADMITTED INPATIENT Condition: Serious Juan Pablo Barnett MD Mar 08, 2018 20:55
[2018-03-08] MEDS ORDERED: cefTRIAXone 1 GM in NS 55 ML IVPB ONE (21:00)
[2018-03-08 21:07] LABS: APPEARANCE,URINE CLOUDY; BILIRUBIN, URINE NEGATIVE (NEGATIVE); COLOR,URINE PALE YELLOW; GLUCOSE, URINE (UA) NEGATIVE (NEGATIVE); KETONES,URINE NEGATIVE (NEGATIVE); LEUKOCYTE ESTERASE ,URINE 3+ (NEGATIVE); NITRITE,URINE NEGATIVE (NEGATIVE); PH,URINE 5 (4.5-8.0); PROTEIN,URINE 3+ (NEGATIVE); UROBILINOGEN,URINE NORMAL MG/DL (0.0-1.0)
[2018-03-08 21:28] LABS: HEMATOCRIT 38.3 % (42.0-52.0); HEMOGLOBIN 12.6 G/DL (14.2-18.0); MEAN CORPUSCULAR VOLUME 79 FL (80-99); PLATELET COUNT 426 K/UL (150-450); RED BLOOD COUNT 4.86 M/UL (4.70-6.10)
[2018-03-08 21:36] LABS: ANION GAP 14 mmol/L (5-15); BLOOD UREA NITROGEN 40 mg/dL (7-18); CALCIUM 9.3 MG/DL (8.5-10.1); CARBON DIOXIDE 21 MMOL/L (21-32); CHLORIDE 104 MMOL/L (98-107); CREATININE 1.6 MG/DL (0.55-1.30); POTASSIUM 4.1 MMOL/L (3.5-5.1); SODIUM 139 MMOL/L (136-145)
[2018-03-08 21:40] LABS: ALANINE AMINOTRANSFERASE 15 U/L (12-78); ALBUMIN 3.4 G/DL (3.4-5.0); ALBUMIN/GLOBULIN RATIO 0.6 (1.0-2.7); ALKALINE PHOSPHATASE 85 U/L (46-116); ASPARTATE AMINO TRANSFERASE 19 U/L (15-37); BILIRUBIN,TOTAL 0.3 MG/DL (0.2-1.0)
[2018-03-08 22:30] VITALS: BP 166/85
[2018-03-08 22:50] VITALS: BP 128/64
[2018-03-09] MEDS ORDERED: Morphine Sulfate 2mg/ml Inj IVP PRN (02:00)
[2018-03-09] MEDS ORDERED: Albuterol/Ipratropium 3ml neb HHN PRN (02:00)
[2018-03-09] MEDS ORDERED: Miralax 17gm pkt ORAL PRN (02:00)
[2018-03-09] MEDS ORDERED: Norco 5mg/325mg tab ORAL PRN (02:00)
[2018-03-09] MEDS: Vancomycin 1 GM in D5W 275 ML IVPB SCH (03:32)
[2018-03-09 04:00] VITALS: BP 106/60
[2018-03-09 08:00] VITALS: BP 116/60
[2018-03-09] MEDS: Cefepime HCl 2 GM in D5W 110 ML IV SCH (09:07)
[2018-03-09] MEDS: Heparin 5000 units/ml inj SUBQ SCH ×2 (09:09→21:37)
[2018-03-09 12:00] VITALS: BP 120/60
--- NOTE | 2018-03-09 13:47 | Consultation ---
History of Present Illness General Date patient seen: Mar 09, 2018 Chief Complaint: Male Urogenital Problems Present Illness HPI 77 year old male with hx of COPD, cachexia, BPH, [place] [facility] resident presented to emergency department complaining of penile pain, abdominal discomfort suprapubic discomfort and fullness. No other complaints are noted. Pt is admitted for further management. Allergies: Coded Allergies: No Known Allergies (Unverified , 07/19/17) Medication History Scheduled Ascorbic Acid* (Vitamin C*), 500 MG ORAL DAILY, (Reported) Docusate Sodium* (Docusate Sodium*), 100 MG ORAL TWICE A DAY, (Reported) Multivitamin With Minerals (Multivitamins With Minerals*), 1 TAB ORAL DAILY, ( Reported) Tamsulosin Hcl (Tamsulosin Hcl*), 0.4 MG ORAL BEDTIME, (Reported) Trimethoprim/Sulfamethoxazole 160/800* (Bactrim Ds Tablet*), 1 TAB ORAL Q12H Zinc Sulfate (Zinc Sulfate*), 220 MG ORAL DAILY, (Reported) Scheduled PRN Acetaminophen (Acetaminophen), 650 MG ORAL Q4HR PRN for Mild Pain/Temp > 100.5, (Reported) Hydrocodone Bit/Acetaminophen 5-325* ([place] 5-325 Tablet*), 1 TAB ORAL Q4H PRN for Moderate Pain (Pain Scale 4-6), (Reported) Melatonin (Melatonin), 3 MG PO for Insomnia, (Reported) Ondansetron* (Zofran*), 4 MG ORAL Q6H PRN for Nausea & Vomiting, (Reported) Discontinued Medications Ertapenem Sodium* (INVanz*), 1 GM IVPB Q24H, (Reported) Discontinued Reason: Pt had allergic rxn Nitrofurantoin Macrocrystal (Nitrofurantoin), 100 MG PO BID, (Reported) Discontinued Reason: Pt had allergic rxn Patient History Healthcare decision maker Resuscitation status Full Code Advanced Directive on File Yes Past Medical/Surgical History Past Medical/Surgical History: (1) BPH (benign prostatic hyperplasia) (2) Severe protein-calorie malnutrition (3) COPD (chronic obstructive pulmonary disease) (4) Decubitus ulcer, heel, left, unstageable Review of Systems All Other Systems: negative except mentioned in HPI Physical Exam General Appearance: cachetic Lines, tubes and drains: peripheral, central line HEENT: normocephalic, atraumatic Neck: non-tender, normal alignment Respiratory/Chest: chest wall non-tender, lungs clear, normal breath sounds Breasts: no masses Cardiovascular/Chest: normal rate Abdomen: normal bowel sounds Genitourinary/Rectal: normal genital exam Last 24 Hour Vital Signs Date Time Temp Pulse Resp B/P (MAP) Pulse Ox O2 Delivery O2 Flow Rate FiO2 03/09/18 12:00 97.8 84 18 120/60 (80) 98 03/09/18 09:00 Room Air 03/09/18 08:00 98.0 82 18 116/60 (78) 97 03/09/18 04:00 98.5 90 18 106/60 (75) 95 03/09/18 00:29 Room Air 03/08/18 22:50 97.9 110 20 128/64 (85) 95 03/08/18 22:40 98.4 100 18 166/85 94 Room Air 03/08/18 22:30 98.4 100 18 166/85 94 Room Air 03/08/18 20:39 98.4 90 40 170/87 94 Room Air 03/08/18 20:12 98.4 140 40 170/87 94 Room Air Intake and Output 03/08/18 03/09/18 18:59 06:59 Intake Total 50 ml Balance 50 ml Intake Oral 0 ml IV Total 50 ml # Voids 1 Laboratory Tests Test 03/08/18 20:33 03/08/18 21:04 Urine Color Pale yellow Urine Appearance Cloudy Urine pH 5 (4.5-8.0) Urine Specific Donaldson 1.015 (1.005-1.035) Urine Protein 3+ (NEGATIVE) H Urine Glucose (UA) Negative (NEGATIVE) Urine Ketones Negative (NEGATIVE) Urine Blood 4+ (NEGATIVE) H Urine Nitrite Negative (NEGATIVE) Urine Bilirubin Negative (NEGATIVE) Urine Urobilinogen Normal MG/DL (0.0-1.0) Urine Leukocyte Esterase 3+ (NEGATIVE) H Urine RBC 15-20 /HPF (0 - 0) H Urine WBC 40-60 /HPF (0 - 0) H Urine Squamous Epithelial Cells None /LPF (NONE/OCC) Urine Bacteria Moderate /HPF (NONE) H White Blood Count 16.0 K/UL (4.8-10.8) H Red Blood Count 4.86 M/UL (4.70-6.10) Hemoglobin 12.6 G/DL (14.2-18.0) L Hematocrit 38.3 % (42.0-52.0) L Mean Corpuscular Volume 79 FL (80-99) L Mean Corpuscular Hemoglobin 25.9 PG (27.0-31.0) L Mean Corpuscular Hemoglobin Concent 32.9 G/DL (32.0-36.0) Red Cell Distribution Width 15.0 % (11.6-14.8) H Platelet Count 426 K/UL (150-450) Mean Platelet Volume 6.4 FL (6.5-10.1) L Neutrophils (%) (Auto) % (45.0-75.0) Lymphocytes (%) (Auto) % (20.0-45.0) Monocytes (%) (Auto) % (1.0-10.0) Eosinophils (%) (Auto) % (0.0-3.0) Basophils (%) (Auto) % (0.0-2.0) Differential Total Cells Counted 100 Neutrophils % (Manual) 87 % (45-75) H Lymphocytes % (Manual) 6 % (20-45) L Monocytes % (Manual) 5 % (1-10) Eosinophils % (Manual) 0 % (0-3) Basophils % (Manual) 0 % (0-2) Band Neutrophils 2 % (0-8) Platelet Estimate Adequate Platelet Morphology Normal Red Blood Cell Morphology Normal Sodium Level 139 MMOL/L (136-145) Potassium Level 4.1 MMOL/L (3.5-5.1) Chloride Level 104 MMOL/L (98-107) Carbon Dioxide Level 21 MMOL/L (21-32) Anion Gap 14 mmol/L (5-15) Blood Urea Nitrogen 40 mg/dL (7-18) H Creatinine 1.6 MG/DL (0.55-1.30) H Estimat Glomerular Filtration Rate mL/min (>60) Glucose Level 216 MG/DL (74-106) H Calcium Level 9.3 MG/DL (8.5-10.1) Total Bilirubin 0.3 MG/DL (0.2-1.0) Aspartate Amino Transf (AST/SGOT) 19 U/L (15-37) Alanine Aminotransferase (ALT/SGPT) 15 U/L (12-78) Alkaline Phosphatase 85 U/L (46-116) Total Protein 9.1 G/DL (6.4-8.2) H Albumin 3.4 G/DL (3.4-5.0) Globulin 5.7 g/dL Albumin/Globulin Ratio 0.6 (1.0-2.7) L Lipase 111 U/L (73-393) Microbiology Date/Time Source Procedure Growth Status 03/08/18 22:05 Rectum Received Height (Feet): 5 Height (Inches): 11.00 Weight (Pounds): 145 Medications Current Medications Medications (Trade) Dose Ordered Sig/Nicole Route PRN Reason Start Time Stop Time Status Last Admin Dose Admin Acetaminophen (Tylenol) 650 mg Q4H PRN ORAL fever 03/09/18 02:00 04/08/18 01:59 Acetaminophen/ Hydrocodone Bitart ([place] 5/325) 1 tab Q4H PRN ORAL Moderate Pain (Pain Scale 4-6) 03/09/18 02:00 03/16/18 01:59 Albuterol/ Ipratropium (Albuterol/ Ipratropium) 3 ml Q4H PRN HHN Shortness of Breath 03/09/18 02:00 03/14/18 01:59 Cefepime HCl 2 gm/ Dextrose 110 ml @ 220 mls/hr Q24H IV 03/09/18 09:00 03/16/18 08:59 03/09/18 09:07 Heparin Sodium (Porcine) (Heparin 5000 units/ml) 5,000 units EVERY 12 HOURS SUBQ 03/09/18 09:00 04/08/18 08:59 03/09/18 09:09 Morphine Sulfate (Morphine Sulfate) 2 mg Q4H PRN IVP Severe Pain (Pain Scale 7-10) 03/09/18 02:00 03/16/18 01:59 Ondansetron HCl (Zofran) 4 mg Q6H PRN IVP Nausea & Vomiting 03/09/18 02:00 04/08/18 01:59 Phenazopyridine HCl (Pyridium) 100 mg DAILY PRN ORAL dysuria 03/09/18 02:00 04/08/18 01:59 Polyethylene Glycol (Miralax) 17 gm DAILYPRN PRN ORAL Constipation 03/09/18 02:00 04/08/18 01:59 Tamsulosin HCl (Flomax) 0.4 mg BEDTIME ORAL 03/09/18 21:00 04/08/18 20:59 Temazepam (Restoril) 15 mg HSPRN PRN ORAL Insomnia 03/09/18 02:00 03/16/18 01:59 Vancomycin HCl (Vanco rx to dose) 1 ea DAILY PRN MISC Per rx protocol 03/09/18 02:30 04/08/18 02:29 Vancomycin HCl 1 gm/Dextrose 275 ml @ 183.3 mls/ hr Q24H IVPB 03/09/18 03:00 03/14/18 02:59 03/09/18 03:32 Assessment/Plan Problem List: (1) Urinary retention ICD Codes: R33.9 - Retention of urine, unspecified SNOMED: 994443178 (2) COPD (chronic obstructive pulmonary disease) ICD Codes: J44.9 - Chronic obstructive pulmonary disease, unspecified SNOMED: 26542778 (3) Balanoposthitis ICD Codes: N47.6 - Balanoposthitis SNOMED: 22047310 (4) Severe protein-calorie malnutrition ICD Codes: E43 - Unspecified severe protein-calorie malnutrition SNOMED: 982611551 (5) BPH (benign prostatic hyperplasia) ICD Codes: N40.0 - Benign prostatic hyperplasia without lower urinary tract symptoms SNOMED: 791578415 Assessment/Plan symptomatic treatment check cultures iv abx iv fluids evaluation renal studies dvt prophylaxis Margie Britton MD Mar 09, 2018 13:47
[2018-03-09 16:00] VITALS: BP 142/69
--- NOTE | 2018-03-09 16:16 | Consultation ---
History of Present Illness General Date patient seen: Mar 09, 2018 Chief Complaint: Male Urogenital Problems Present Illness HPI 77 y/o M with hx of DM2, BPH, chronic shoulder dislocation, dementia, COPD, recurrent UTI, balanitis, senior care resident presents with penile pain, suprapubic discomfort and fullness. Patient unable to urinate, found to have severe phimosis. Urology has been called for evaluation. Allergies: Coded Allergies: No Known Allergies (Unverified , 07/19/17) Medication History Scheduled Ascorbic Acid* (Vitamin C*), 500 MG ORAL DAILY, (Reported) Docusate Sodium* (Docusate Sodium*), 100 MG ORAL TWICE A DAY, (Reported) Multivitamin With Minerals (Multivitamins With Minerals*), 1 TAB ORAL DAILY, ( Reported) Tamsulosin Hcl (Tamsulosin Hcl*), 0.4 MG ORAL BEDTIME, (Reported) Trimethoprim/Sulfamethoxazole 160/800* (Bactrim Ds Tablet*), 1 TAB ORAL Q12H Zinc Sulfate (Zinc Sulfate*), 220 MG ORAL DAILY, (Reported) Scheduled PRN Acetaminophen (Acetaminophen), 650 MG ORAL Q4HR PRN for Mild Pain/Temp > 100.5, (Reported) Hydrocodone Bit/Acetaminophen 5-325* ([place] 5-325 Tablet*), 1 TAB ORAL Q4H PRN for Moderate Pain (Pain Scale 4-6), (Reported) Melatonin (Melatonin), 3 MG PO for Insomnia, (Reported) Ondansetron* (Zofran*), 4 MG ORAL Q6H PRN for Nausea & Vomiting, (Reported) Discontinued Medications Ertapenem Sodium* (INVanz*), 1 GM IVPB Q24H, (Reported) Discontinued Reason: Pt had allergic rxn Nitrofurantoin Macrocrystal (Nitrofurantoin), 100 MG PO BID, (Reported) Discontinued Reason: Pt had allergic rxn Patient History Healthcare decision maker Resuscitation status Full Code Advanced Directive on File Yes Patient History Narrative Pmhx: as above Shx: reviewed Fhx: non contributory Review of Systems All Other Systems: negative except mentioned in HPI Physical Exam Physical Exam Narrative General Appearance: moderate distress HEENT: atraumatic, bilateral eye normal inspection, moist mucus membranes Neck: normal inspection, full range of motion, supple Respiratory: normal inspection, lungs clear Cardiovascular : regular rate, rhythm Gastrointestinal: other - Distended, tender over suprapubic region Genitourinary: no CVA tenderness, other - Phimosis,, irritated foreskin, urine appears trapped in foreskin Musculoskeletal: normal inspection, back normal, normal range of motion Neurologic: alert, responsive Skin: normal color Last 24 Hour Vital Signs Date Time Temp Pulse Resp B/P (MAP) Pulse Ox O2 Delivery O2 Flow Rate FiO2 03/09/18 12:00 97.8 84 18 120/60 (80) 98 03/09/18 09:00 Room Air 03/09/18 08:00 98.0 82 18 116/60 (78) 97 03/09/18 04:00 98.5 90 18 106/60 (75) 95 03/09/18 00:29 Room Air 03/08/18 22:50 97.9 110 20 128/64 (85) 95 03/08/18 22:40 98.4 100 18 166/85 94 Room Air 03/08/18 22:30 98.4 100 18 166/85 94 Room Air 03/08/18 20:39 98.4 90 40 170/87 94 Room Air 03/08/18 20:12 98.4 140 40 170/87 94 Room Air Intake and Output 03/08/18 03/09/18 19:00 07:00 Intake Total 50 ml Balance 50 ml Intake Oral 0 ml IV Total 50 ml # Voids 1 Laboratory Tests Test 03/08/18 20:33 03/08/18 21:04 Urine Color Pale yellow Urine Appearance Cloudy Urine pH 5 (4.5-8.0) Urine Specific Shelley 1.015 (1.005-1.035) Urine Protein 3+ (NEGATIVE) H Urine Glucose (UA) Negative (NEGATIVE) Urine Ketones Negative (NEGATIVE) Urine Blood 4+ (NEGATIVE) H Urine Nitrite Negative (NEGATIVE) Urine Bilirubin Negative (NEGATIVE) Urine Urobilinogen Normal MG/DL (0.0-1.0) Urine Leukocyte Esterase 3+ (NEGATIVE) H Urine RBC 15-20 /HPF (0 - 0) H Urine WBC 40-60 /HPF (0 - 0) H Urine Squamous Epithelial Cells None /LPF (NONE/OCC) Urine Bacteria Moderate /HPF (NONE) H White Blood Count 16.0 K/UL (4.8-10.8) H Red Blood Count 4.86 M/UL (4.70-6.10) Hemoglobin 12.6 G/DL (14.2-18.0) L Hematocrit 38.3 % (42.0-52.0) L Mean Corpuscular Volume 79 FL (80-99) L Mean Corpuscular Hemoglobin 25.9 PG (27.0-31.0) L Mean Corpuscular Hemoglobin Concent 32.9 G/DL (32.0-36.0) Red Cell Distribution Width 15.0 % (11.6-14.8) H Platelet Count 426 K/UL (150-450) Mean Platelet Volume 6.4 FL (6.5-10.1) L Neutrophils (%) (Auto) % (45.0-75.0) Lymphocytes (%) (Auto) % (20.0-45.0) Monocytes (%) (Auto) % (1.0-10.0) Eosinophils (%) (Auto) % (0.0-3.0) Basophils (%) (Auto) % (0.0-2.0) Differential Total Cells Counted 100 Neutrophils % (Manual) 87 % (45-75) H Lymphocytes % (Manual) 6 % (20-45) L Monocytes % (Manual) 5 % (1-10) Eosinophils % (Manual) 0 % (0-3) Basophils % (Manual) 0 % (0-2) Band Neutrophils 2 % (0-8) Platelet Estimate Adequate Platelet Morphology Normal Red Blood Cell Morphology Normal Sodium Level 139 MMOL/L (136-145) Potassium Level 4.1 MMOL/L (3.5-5.1) Chloride Level 104 MMOL/L (98-107) Carbon Dioxide Level 21 MMOL/L (21-32) Anion Gap 14 mmol/L (5-15) Blood Urea Nitrogen 40 mg/dL (7-18) H Creatinine 1.6 MG/DL (0.55-1.30) H Estimat Glomerular Filtration Rate mL/min (>60) Glucose Level 216 MG/DL (74-106) H Calcium Level 9.3 MG/DL (8.5-10.1) Total Bilirubin 0.3 MG/DL (0.2-1.0) Aspartate Amino Transf (AST/SGOT) 19 U/L (15-37) Alanine Aminotransferase (ALT/SGPT) 15 U/L (12-78) Alkaline Phosphatase 85 U/L (46-116) Total Protein 9.1 G/DL (6.4-8.2) H Albumin 3.4 G/DL (3.4-5.0) Globulin 5.7 g/dL Albumin/Globulin Ratio 0.6 (1.0-2.7) L Lipase 111 U/L (73-393) Microbiology Date/Time Source Procedure Growth Status 03/08/18 22:05 Rectum Received Height (Feet): 5 Height (Inches): 11.00 Weight (Pounds): 145 Medications Current Medications Medications (Trade) Dose Ordered Sig/Nicole Route PRN Reason Start Time Stop Time Status Last Admin Dose Admin Acetaminophen (Tylenol) 650 mg Q4H PRN ORAL fever 03/09/18 02:00 04/08/18 01:59 Acetaminophen/ Hydrocodone Bitart ([place] 5/325) 1 tab Q4H PRN ORAL Moderate Pain (Pain Scale 4-6) 03/09/18 02:00 03/16/18 01:59 Albuterol/ Ipratropium (Albuterol/ Ipratropium) 3 ml Q4H PRN HHN Shortness of Breath 03/09/18 02:00 03/14/18 01:59 Cefepime HCl 2 gm/ Dextrose 110 ml @ 220 mls/hr Q24H IV 03/09/18 09:00 03/16/18 08:59 03/09/18 09:07 Heparin Sodium (Porcine) (Heparin 5000 units/ml) 5,000 units EVERY 12 HOURS SUBQ 03/09/18 09:00 04/08/18 08:59 03/09/18 09:09 Morphine Sulfate (Morphine Sulfate) 2 mg Q4H PRN IVP Severe Pain (Pain Scale 7-10) 03/09/18 02:00 03/16/18 01:59 Ondansetron HCl (Zofran) 4 mg Q6H PRN IVP Nausea & Vomiting 03/09/18 02:00 04/08/18 01:59 Phenazopyridine HCl (Pyridium) 100 mg DAILY PRN ORAL dysuria 03/09/18 02:00 04/08/18 01:59 Polyethylene Glycol (Miralax) 17 gm DAILYPRN PRN ORAL Constipation 03/09/18 02:00 04/08/18 01:59 Tamsulosin HCl (Flomax) 0.4 mg BEDTIME ORAL 03/09/18 21:00 04/08/18 20:59 Temazepam (Restoril) 15 mg HSPRN PRN ORAL Insomnia 03/09/18 02:00 03/16/18 01:59 Vancomycin HCl (Vanco rx to dose) 1 ea DAILY PRN MISC Per rx protocol 03/09/18 02:30 04/08/18 02:29 Vancomycin HCl 1 gm/Dextrose 275 ml @ 183.3 mls/ hr Q24H IVPB 03/09/18 03:00 03/14/18 02:59 03/09/18 03:32 Assessment/Plan Assessment/Plan Abx: IV Vancomycin 03/09- CEfepime 03/09- Ceftriaxone x1 03/08 Assessment: Phimosis Penile cellulitis Probable UTI -u.a wbc 40-60, nit neg,leukl +3; ucx p Afebrile Leukocytosis Hx of balanoposthitis/penile cellulitis 10/2017, sp Rx Recurrent UTI -10/2017 ucx >100K E.coli (arreaga S) -09/2017: ucx >100K P. stuarti (R Amp, ancef, Genta; I Cipro/levo, Zosyn; CEftriaxone reported as S- however Anthony 8 0 ?resistant), S. Meropenem - 07/2017: MDR Proteus mirabilis BPH COPD DM2 cachexia chronic left shoulder dislocation Dementia senior care resident Plan: -Continue empiric Cefepime#1 (abx d#2) pending urine culture -Continue IV Vancomycin #1 for penile cellulitis -03/08 SP Ceftriaxone x1 -10/27 SP Bactrim#3 -10/24 SP Meropenem #4 -10/22 SP IV Vancomycin # 2 -10/21 Sp one time dose of AMikacin and Cefepime -10/02 SP Ertapenem #5 -09/27 SP Meropenem #2 -09/24 SP Keflex and Ertapenem x1 -07/2017 SP Ertapenem #5 -f/u cx -Monitor CBC/CMP, temperatures -Uro eval Thank you for this consultation. Will continue to follow along with you. Discussed with Radha Rosales M.D. Mar 09, 2018 16:16
[2018-03-09 20:00] VITALS: BP 121/53
--- NOTE | 2018-03-09 20:04 | General Progress Note ---
Progress Note Progress Note full note dictated [id number] Mesha Day MD Mar 09, 2018 20:04
--- NOTE | 2018-03-09 20:45 | History and Physical Report ---
DATE OF ADMISSION: 03/08/2018 APPROXIMATE TIME: At 3 p.m. ATTENDING PHYSICIAN: Samir Cramer D.O. CONSULTANTS: 1. Margie Britton M.D. 2. Kolby Brady M.D. 3. Gino James M.D. CHIEF COMPLAINT: Phimosis, UTI, and dysuria. BRIEF HISTORY: This is a 77-year-old male from [facility], presented with the above-mentioned diagnoses, dysuria for about a week, getting worse, diagnosed with UTI and phimosis, admitted to medical floor for further treatment. Currently, calm in bed, slightly confused. No complaint. No chest pain. No shortness of breath. No nausea, vomiting, or diarrhea. PAST MEDICAL HISTORY: Includes COPD, cachexia, malnutrition, BPH, weakness, and decubitus. PAST SURGICAL HISTORY: Unknown. ALLERGIES: Denies. MEDICATIONS: Include , cefepime, heparin, vancomycin, hydrocodone, albuterol, Tylenol, morphine, temazepam, and . SOCIAL HISTORY: Positive smoking. No alcohol. No intravenous drug abuse. FAMILY HISTORY: Noncontributory. PHYSICAL EXAMINATION: GENERAL: Calm in bed, oriented x1, in no acute distress. VITAL SIGNS: Show temperature is 97 degrees, pulse 84, respirations 18, and blood pressure 120/60. CARDIOVASCULAR: No murmur. LUNGS: Distant and clear. ABDOMEN: Bowel sounds positive. Nontender. Nondistended. EXTREMITIES: Showed no cyanosis or edema. NEUROLOGIC: The patient moves all extremities, slightly weak. Penile exam, the patient refused. LABORATORY DATA: Labs at this time show white count 16, hemoglobin and hematocrit 12/38, and platelets 426,000. BUN and creatinine 40 and 1.6, glucose 216. Urinalysis, 3+ leukocyte esterase. ASSESSMENT: 1. Urinary tract infection. 2. Phimosis. 3. Chronic obstructive pulmonary disease. 4. Cachexia. 5. Malnutrition. 6. Benign prostatic hypertrophy. 7. Weakness. 8. Decubitus ulcers. 9. Renal insufficiency. PLAN: 1. Continue previous medications. 2. OT/PT. 3. Dietary evaluation. 4. Wound care. 5. Antibiotics per Infectious Disease. 6. Intravenous fluids. 7. We will continue to follow this patient. Samir Cramer D.O. DR: ZEKE JOB#: [id number] CC:
[2018-03-09] MEDS: Tamsulosin 0.4mg cap ORAL SCH (21:31)
--- NOTE | 2018-03-09 23:30 | Consultation ---
DATE OF CONSULTATION: 03/09/2018 UROLOGY CONSULTATION CHIEF COMPLAINT/HISTORY OF PRESENT ILLNESS: I was asked by Dr. Cramer to evaluate this 77-year-old gentleman known to me from previous hospitalization here regarding history of urinary tract infection and abdominal prostatitis. Briefly, the patient was here in the hospital in October with evidence of penile swelling, cellulitis, and urinary tract infection. He was treated with intravenous antibiotics and improved. He was discharged home and now returns to the hospital with similar symptoms. Given the above, I was asked to evaluate the patient. PAST MEDICAL HISTORY: 1. Chronic obstructive pulmonary disease. 2. Arrhythmia. 3. Cachexia. 4. BPH. 5. Dementia. 6. Penile cellulitis. 7. Urinary tract infection. PAST SURGICAL HISTORY: Unknown. MEDICATIONS: Please see the chart for current medications and administration details. Briefly, the patient is receiving vancomycin and cefepime for antibiotic coverage. ALLERGIES: No known drug allergies. SOCIAL HISTORY: Unremarkable for tobacco, alcohol, or drug use. FAMILY HISTORY: Noncontributory. REVIEW OF SYSTEMS: A 14-system review of systems is essentially unremarkable outside what is described above. PHYSICAL EXAMINATION: GENERAL: The patient is an elderly [place] gentleman, awake, alert, and oriented x4, pleasant, in no obvious distress. HEENT: NC/AT. EOMI. NECK: Supple. Full range of motion. Oropharynx clear. CHEST: Within normal limits. ABDOMEN: Soft, nontender, and nondistended. EXTREMITIES: Warm and well perfused. No cyanosis, clubbing, or edema. BACK: No CVA tenderness to percussion. NEUROLOGIC: Grossly nonfocal. GENITOURINARY: Reveals an uncircumcised male phallus with some phimosis. There is some redness and inflammation of the skin consistent with cellulitis. There is no evidence of scrotal abscess or penile abscess or edema. There is mild tenderness to palpation. LABORATORY DATA: White blood cell count 16, hematocrit 38.3, and platelets 426,000. Sodium 139, potassium 4.1, chloride 104, bicarbonate 21, BUN 40, creatinine 1.6, and glucose 216. Calcium is 9.3. LFTs within normal limits. Urinalysis, specific gravity 1.015 and pH 5.0. Dip test notable for 3+ protein, 4+ occult blood, and 3+ leukocyte esterase. Microanalysis with 15 to 20 red and 40 to 60 white blood cells per high-power field and moderate bacteria seen. Urine culture pending. DIAGNOSTIC IMAGING: None. ASSESSMENT AND PLAN: In summary, the patient is a 77-year-old gentleman with a history of recurrent penile cellulitis and balanoposthitis. Physical exam reveals the same. He has been placed on good antibiotic coverage with cefepime and vancomycin. Physical exam reveals a slightly inflamed and cellulitic foreskin with some baseline phimosis. There is no evidence of abscess, Lei's gangrene, or other issues requiring surgical intervention. Laboratory data is notable for elevated white blood cell count and evidence of urinary tract infection. Culture is pending. I discussed these findings here with the patient at the bedside. I have offered him circumcision to alleviate the issue and hopefully resolve his problem. He refuses the same and wishes to think about it. I would continue the patient on broad-spectrum antibiotics to total 7 to 10 days of therapy. They can be adjusted oral therapy as culture results dictate and warrant. Thank you for allowing me to participate in the care of this unfortunate gentleman. Please do not hesitate to contact me for any questions that you may further have regarding his care. I will be happy to see him with you as needed. Kolby Brady M.D. DR: CHERRIE JOB#: [id number] CC:
--- NOTE | 2018-03-09 23:30 | Consultation ---
DATE OF CONSULTATION: 03/09/2018 NEPHROLOGY CONSULTATION CONSULTING PHYSICIAN: Mesha Day M.D. REFERRING PHYSICIAN: Samir Cramer D.O. REASON FOR CONSULTATION: Acute renal failure. HISTORY OF PRESENT ILLNESS: The patient is a 77-year-old male with past medical history significant for history of BPH, hypertension, history of chronic shoulder dislocation, dementia, and chronic obstructive pulmonary disease, who has presented to [facility] for having difficulty urinating and penile pain and swelling. The patient was found to have severe phimosis and penile cellulitis and also found to have an acute renal failure. I was called for management of renal disease and electrolyte imbalance. PAST MEDICAL HISTORY: Including, 1. History of diabetes. 2. History of constipation. 3. History of BPH. 4. History of dementia. 5. History of longterm resident. ALLERGIES: Not known drug allergy. SOCIAL HISTORY: There is no history of tobacco, alcohol, or drug use. FAMILY HISTORY: Noncontributory. REVIEW OF SYSTEMS: Negative except what is mentioned in the HPI. PHYSICAL EXAMINATION: VITAL SIGNS: The patient had temperature of 98, pulse rate of 84, and blood pressure of 120/60. HEAD AND NECK: No JVP. No LAD. No thyromegaly. Extraocular movements intact. Pupils are reactive to light and accommodation. LUNGS: Clear to auscultation. CARDIAC: Regular rate and rhythm. S1, S2. No murmur. No rub. ABDOMEN: Soft, nontender, and nondistended. EXTREMITIES: No edema. No clubbing. No cyanosis. GENITOURINARY: The patient is found to have an irritation, phimosis, and swelling and redness around penal area. LABORATORY DATA: Lab values reveal sodium of 139, potassium of 4.1, chloride 104, bicarbonate 21, BUN 40, creatinine of 1.6, glucose of 215, and calcium of 9.3. AST of 19, ALT of 15, and alkaline phosphatase of 85. Total protein is 9.1, albumin is 3.4. CBC revealed WBC count of 16,000, hemoglobin of 12.6, hematocrit of 38, and platelet count of 426,000. UA revealed specific gravity of 1.010, protein 2+, blood 4+, leukocyte esterase 2+, rbc 15 to 20, and wbc of 40 to 60. ASSESSMENT: 1. Acute renal failure. The etiology of acute renal failure are including acute tubular necrosis due to unstable hemodynamics versus obstructive uropathy. 2. History of chronic kidney disease. 3. Possible diabetic nephropathy versus hypertensive nephrosclerosis. 4. Urinary tract infection. 5. Phimosis with cellulitis of penile area. PLAN: Plan for the patient to obtain ultrasound of the kidney to evaluate the kidney size. IV antibiotics. Monitor renal function and electrolytes closely. Check the random urine protein-creatinine ratio to calculate the proteinuria. Avoid any further nephrotoxics. Replace electrolytes as needed. Again, I would like to thank, Dr. Samir Cramer, for allowing me to participate in the care of this patient. Mesha Day M.D. DR: ARON JOB#: [id number] CC:
[2018-03-10] VITALS: BP 129/70
[2018-03-10] MEDS: Vancomycin 1 GM in D5W 275 ML IVPB SCH (03:07)
[2018-03-10 04:00] VITALS: BP 126/55
[2018-03-10 08:00] VITALS: BP 119/68
[2018-03-10] MEDS: Cefepime HCl 2 GM in D5W 110 ML IV SCH (09:15)
[2018-03-10] MEDS: Heparin 5000 units/ml inj SUBQ SCH ×2 (09:24→21:27)
[2018-03-10 10:34] LABS: EOSINOPHILS % (AUTO) 6.8 % (0.0-3.0); HEMATOCRIT 35.8 % (42.0-52.0); HEMOGLOBIN 11.7 G/DL (14.2-18.0); LYMPHOCYTES % (AUTO) 16.6 % (20.0-45.0); MEAN CORPUSCULAR VOLUME 79 FL (80-99); MONOCYTES % (AUTO) 8.6 % (1.0-10.0); PLATELET COUNT 348 K/UL (150-450); RED BLOOD COUNT 4.54 M/UL (4.70-6.10); RED CELL DISTRIBUTION WIDTH 15.2 % (11.6-14.8); WHITE BLOOD COUNT 7.1 K/UL (4.8-10.8)
[2018-03-10 12:00] VITALS: BP 139/71
[2018-03-10 12:06] LABS: ALANINE AMINOTRANSFERASE 11 U/L (12-78); ALBUMIN 2.8 G/DL (3.4-5.0); ALBUMIN/GLOBULIN RATIO 0.5 (1.0-2.7); ALKALINE PHOSPHATASE 61 U/L (46-116); ANION GAP 8 mmol/L (5-15); ASPARTATE AMINO TRANSFERASE 19 U/L (15-37); BILIRUBIN,TOTAL 0.4 MG/DL (0.2-1.0); BLOOD UREA NITROGEN 33 mg/dL (7-18); CALCIUM 8.9 MG/DL (8.5-10.1); CARBON DIOXIDE 27 MMOL/L (21-32); CHLORIDE 106 MMOL/L (98-107); CREATININE 1.5 MG/DL (0.55-1.30); SODIUM 141 MMOL/L (136-145)
--- NOTE | 2018-03-10 12:45 | General Progress Note ---
Assessment/Plan Problem List: (1) Decubitus ulcer ICD Codes: L89.90 - Pressure ulcer of unspecified site, unspecified stage SNOMED: 892380503 (2) COPD (chronic obstructive pulmonary disease) ICD Codes: J44.9 - Chronic obstructive pulmonary disease, unspecified SNOMED: 33908559 (3) Cachexia ICD Codes: R64 - Cachexia SNOMED: 860056115 (4) Severe protein-calorie malnutrition ICD Codes: E43 - Unspecified severe protein-calorie malnutrition SNOMED: 641672001 (5) BPH (benign prostatic hyperplasia) ICD Codes: N40.0 - Benign prostatic hyperplasia without lower urinary tract symptoms SNOMED: 773829695 (6) Weak ICD Codes: R53.1 - Weakness SNOMED: 65212227 (7) Balanoposthitis ICD Codes: N47.6 - Balanoposthitis SNOMED: 89383156 (8) Phimosis ICD Codes: N47.1 - Phimosis SNOMED: 924360720 (9) Urinary retention ICD Codes: R33.9 - Retention of urine, unspecified SNOMED: 088062477 Status: unchanged Assessment/Plan ot pt diet wounmd care abx uro f/u cbc bmp am Subjective Constitutional: Reports: weakness Allergies: Coded Allergies: No Known Allergies (Unverified , 07/19/17) All Systems: reviewed and negative except above Subjective calm in bed eating, sl penile pain Objective Last 24 Hour Vital Signs Date Time Temp Pulse Resp B/P (MAP) Pulse Ox O2 Delivery O2 Flow Rate FiO2 03/10/18 12:00 97.5 75 20 139/71 (93) 97 03/10/18 09:00 Room Air 03/10/18 08:15 60 16 Room Air 21 03/10/18 08:00 97.3 99 20 119/68 (85) 97 03/10/18 04:00 97.5 84 20 126/55 (78) 93 03/10/18 00:00 97.7 90 20 129/70 (89) 94 03/09/18 21:00 Room Air 03/09/18 20:00 97.9 89 18 121/53 (75) 97 03/09/18 19:40 81 18 Room Air 21 03/09/18 16:00 97.7 83 19 142/69 (93) 95 Intake and Output 03/09/18 03/10/18 19:00 07:00 Intake Total 470 ml 1475.0 ml Balance 470 ml 1475.0 ml Intake Oral 360 ml 600 ml IV Total 110 ml 275.0 ml Other 600 ml # Voids 3 4 Laboratory Tests 03/10/18 07:00: Urine Eosinophils [Pending], Urine Random Total Protein 75H, Urine Random Sodium 98, Urine Creatinine 93.2 03/10/18 10:00: White Blood Count 7.1, Red Blood Count 4.54L, Hemoglobin 11.7L, Hematocrit 35.8L , Mean Corpuscular Volume 79L, Mean Corpuscular Hemoglobin 25.9L, Mean Corpuscular Hemoglobin Concent 32.8, Red Cell Distribution Width 15.2H, Platelet Count 348, Mean Platelet Volume 6.5, Neutrophils (%) (Auto) 66.0, Lymphocytes (%) (Auto) 16.6L, Monocytes (%) (Auto) 8.6, Eosinophils (%) (Auto) 6.8H, Basophils (%) (Auto) 2.0, Sodium Level 141, Potassium Level 4.0, Chloride Level 106, Carbon Dioxide Level 27, Anion Gap 8, Blood Urea Nitrogen 33H, Creatinine 1.5H, Estimat Glomerular Filtration Rate , Glucose Level 126H, Calcium Level 8.9, Total Bilirubin 0.4, Aspartate Amino Transf (AST/SGOT) 19, Alanine Aminotransferase (ALT/SGPT) 11L, Alkaline Phosphatase 61, Total Protein 8.2, Albumin 2.8L, Globulin 5.4, Albumin/Globulin Ratio 0.5L Height (Feet): 5 Height (Inches): 11.00 Weight (Pounds): 145 General Appearance: lethargic EENT: normal ENT inspection Neck: normal alignment Cardiovascular: normal peripheral pulses, normal rate, regular rhythm Respiratory/Chest: chest wall non-tender, lungs clear, normal breath sounds Abdomen: normal bowel sounds, non tender, soft Extremities: normal inspection Edema: no edema noted Arm (L), no edema noted Arm (R), no edema noted Leg (L), no edema noted Leg (R), no edema noted Pedal (L), no edema noted Pedal (R), no edema noted Generalized Neurologic: motor weakness Skin: normal pigmentation, warm/dry Samir Cramer DO Mar 10, 2018 12:45
--- NOTE | 2018-03-10 13:00 | Pulmonology Progress Note ---
Assessment/Plan Problems: (1) Urinary retention (2) COPD (chronic obstructive pulmonary disease) (3) Balanoposthitis (4) Severe protein-calorie malnutrition (5) BPH (benign prostatic hyperplasia) Assessment/Plan symptomatic treatment check cultures iv abx, ID consult reviewed iv fluids evaluation appreciated renal studies dvt prophylaxis Subjective ROS Limited/Unobtainable: Yes Allergies: Coded Allergies: No Known Allergies (Unverified , 07/19/17) Objective Last 24 Hour Vital Signs Date Time Temp Pulse Resp B/P (MAP) Pulse Ox O2 Delivery O2 Flow Rate FiO2 03/10/18 12:00 97.5 75 20 139/71 (93) 97 03/10/18 09:00 Room Air 03/10/18 08:15 60 16 Room Air 21 03/10/18 08:00 97.3 99 20 119/68 (85) 97 03/10/18 04:00 97.5 84 20 126/55 (78) 93 03/10/18 00:00 97.7 90 20 129/70 (89) 94 03/09/18 21:00 Room Air 03/09/18 20:00 97.9 89 18 121/53 (75) 97 03/09/18 19:40 81 18 Room Air 21 03/09/18 16:00 97.7 83 19 142/69 (93) 95 Intake and Output 03/09/18 03/10/18 18:59 06:59 Intake Total 470 ml 1475.0 ml Balance 470 ml 1475.0 ml Intake Oral 360 ml 600 ml IV Total 110 ml 275.0 ml Other 600 ml # Voids 3 4 General Appearance: cachetic HEENT: normocephalic, atraumatic Respiratory/Chest: chest wall non-tender, lungs clear Cardiovascular: normal peripheral pulses, normal rate Abdomen: normal bowel sounds, no organomegaly Genitourinary: normal external genitalia Skin: no rash Microbiology Date/Time Source Procedure Growth Status 03/08/18 20:33 Urine,Clean Catch Urine Culture - Preliminary Gram Negative Bacillus 1 Resulted 03/08/18 22:05 Rectum Received Laboratory Tests 03/10/18 07:00: Urine Eosinophils [Pending], Urine Random Total Protein 75H, Urine Random Sodium 98, Urine Creatinine 93.2 03/10/18 10:00: White Blood Count 7.1, Red Blood Count 4.54L, Hemoglobin 11.7L, Hematocrit 35.8L , Mean Corpuscular Volume 79L, Mean Corpuscular Hemoglobin 25.9L, Mean Corpuscular Hemoglobin Concent 32.8, Red Cell Distribution Width 15.2H, Platelet Count 348, Mean Platelet Volume 6.5, Neutrophils (%) (Auto) 66.0, Lymphocytes (%) (Auto) 16.6L, Monocytes (%) (Auto) 8.6, Eosinophils (%) (Auto) 6.8H, Basophils (%) (Auto) 2.0, Sodium Level 141, Potassium Level 4.0, Chloride Level 106, Carbon Dioxide Level 27, Anion Gap 8, Blood Urea Nitrogen 33H, Creatinine 1.5H, Estimat Glomerular Filtration Rate , Glucose Level 126H, Calcium Level 8.9, Total Bilirubin 0.4, Aspartate Amino Transf (AST/SGOT) 19, Alanine Aminotransferase (ALT/SGPT) 11L, Alkaline Phosphatase 61, Total Protein 8.2, Albumin 2.8L, Globulin 5.4, Albumin/Globulin Ratio 0.5L Current Medications Medications (Trade) Dose Ordered Sig/Nicole Route PRN Reason Start Time Stop Time Status Last Admin Dose Admin Acetaminophen (Tylenol) 650 mg Q4H PRN ORAL fever 03/09/18 02:00 04/08/18 01:59 Acetaminophen/ Hydrocodone Bitart ([place] 5/325) 1 tab Q4H PRN ORAL Moderate Pain (Pain Scale 4-6) 03/09/18 02:00 03/16/18 01:59 Albuterol/ Ipratropium (Albuterol/ Ipratropium) 3 ml Q4H PRN HHN Shortness of Breath 03/09/18 02:00 03/14/18 01:59 Cefepime HCl 2 gm/ Dextrose 110 ml @ 220 mls/hr Q24H IV 03/09/18 09:00 03/16/18 08:59 03/10/18 09:15 Heparin Sodium (Porcine) (Heparin 5000 units/ml) 5,000 units EVERY 12 HOURS SUBQ 03/09/18 09:00 04/08/18 08:59 03/10/18 09:24 Morphine Sulfate (Morphine Sulfate) 2 mg Q4H PRN IVP Severe Pain (Pain Scale 7-10) 03/09/18 02:00 03/16/18 01:59 Ondansetron HCl (Zofran) 4 mg Q6H PRN IVP Nausea & Vomiting 03/09/18 02:00 04/08/18 01:59 Phenazopyridine HCl (Pyridium) 100 mg DAILY PRN ORAL dysuria 03/09/18 02:00 04/08/18 01:59 Polyethylene Glycol (Miralax) 17 gm DAILYPRN PRN ORAL Constipation 03/09/18 02:00 04/08/18 01:59 Tamsulosin HCl (Flomax) 0.4 mg BEDTIME ORAL 03/09/18 21:00 04/08/18 20:59 03/09/18 21:31 Temazepam (Restoril) 15 mg HSPRN PRN ORAL Insomnia 03/09/18 02:00 03/16/18 01:59 Vancomycin HCl (Vanco rx to dose) 1 ea DAILY PRN MISC Per rx protocol 03/09/18 02:30 04/08/18 02:29 Vancomycin HCl 1 gm/Dextrose 275 ml @ 183.3 mls/ hr Q24H IVPB 03/09/18 03:00 03/14/18 02:59 03/10/18 03:07 Margie Britton MD Mar 10, 2018 13:00
[2018-03-10 15:53] VITALS: BP 139/94
--- NOTE | 2018-03-10 17:17 | Consultation ---
History of Present Illness General Date patient seen: Mar 10, 2018 Chief Complaint: Reason for Consultation: multiple wounds Present Illness HPI 77 year old male with multiple medical comorbidities and known prior wounds presented with pelvic fullness and discomfort / male urogenital issues. On admission noted to have multiple wounds requiring care / management. Surgery called to evaluate. patient seen, chart reviewed, patient examined. states he is having pain all over his body. no n/v/f/c. tolerating diet. long history of penile wounds/swelling. states recently more swollen. Allergies: Coded Allergies: No Known Allergies (Unverified , 07/19/17) Medication History Scheduled Ascorbic Acid* (Vitamin C*), 500 MG ORAL DAILY, (Reported) Docusate Sodium* (Docusate Sodium*), 100 MG ORAL TWICE A DAY, (Reported) Multivitamin With Minerals (Multivitamins With Minerals*), 1 TAB ORAL DAILY, ( Reported) Tamsulosin Hcl (Tamsulosin Hcl*), 0.4 MG ORAL BEDTIME, (Reported) Trimethoprim/Sulfamethoxazole 160/800* (Bactrim Ds Tablet*), 1 TAB ORAL Q12H Zinc Sulfate (Zinc Sulfate*), 220 MG ORAL DAILY, (Reported) Scheduled PRN Acetaminophen (Acetaminophen), 650 MG ORAL Q4HR PRN for Mild Pain/Temp > 100.5, (Reported) Hydrocodone Bit/Acetaminophen 5-325* ([place] 5-325 Tablet*), 1 TAB ORAL Q4H PRN for Moderate Pain (Pain Scale 4-6), (Reported) Melatonin (Melatonin), 3 MG PO for Insomnia, (Reported) Ondansetron* (Zofran*), 4 MG ORAL Q6H PRN for Nausea & Vomiting, (Reported) Discontinued Medications Ertapenem Sodium* (INVanz*), 1 GM IVPB Q24H, (Reported) Discontinued Reason: Pt had allergic rxn Nitrofurantoin Macrocrystal (Nitrofurantoin), 100 MG PO BID, (Reported) Discontinued Reason: Pt had allergic rxn Patient History History Provided By: Patient, Medical Record, PMD Healthcare decision maker Resuscitation status Full Code Advanced Directive on File Yes Past Medical/Surgical History Past Medical/Surgical History: (1) Anemia (2) MDRO (multiple drug resistant organisms) resistance (3) Decubitus ulcer, heel, left, unstageable (4) Sepsis (5) COPD (chronic obstructive pulmonary disease) (6) Balanoposthitis (7) Phimosis (8) Urinary retention (9) Severe protein-calorie malnutrition (10) BPH (benign prostatic hyperplasia) Review of Systems All Other Systems: negative except mentioned in HPI Physical Exam General Appearance: no apparent distress, alert Lines, tubes and drains: peripheral HEENT: normocephalic, atraumatic, anicteric, mucous membranes moist Neck: normal inspection Respiratory/Chest: normal breath sounds, no respiratory distress, no accessory muscle use Cardiovascular/Chest: normal rate, regular rhythm, regularly irregular Abdomen: soft, no organomegaly, no mass Genitourinary/Rectal: other Extremities: other Skin Exam: warm/dry, other Neurologic: alert, responsive Last 24 Hour Vital Signs Date Time Temp Pulse Resp B/P (MAP) Pulse Ox O2 Delivery O2 Flow Rate FiO2 03/10/18 15:53 97.7 93 20 139/94 (109) 99 03/10/18 12:00 97.5 75 20 139/71 (93) 97 03/10/18 09:00 Room Air 03/10/18 08:15 60 16 Room Air 21 03/10/18 08:00 97.3 99 20 119/68 (85) 97 03/10/18 04:00 97.5 84 20 126/55 (78) 93 03/10/18 00:00 97.7 90 20 129/70 (89) 94 03/09/18 21:00 Room Air 03/09/18 20:00 97.9 89 18 121/53 (75) 97 03/09/18 19:40 81 18 Room Air 21 Intake and Output 03/09/18 03/10/18 18:59 06:59 Intake Total 470 ml 1475.0 ml Balance 470 ml 1475.0 ml Intake Oral 360 ml 600 ml IV Total 110 ml 275.0 ml Other 600 ml # Voids 3 4 Laboratory Tests Test 03/10/18 07:00 03/10/18 10:00 Urine Eosinophils None seen (NONE SEEN) Urine Random Total Protein 75 MG/DL (< 11.9) H Urine Random Sodium 98 mmol/L (20-110) Urine Creatinine 93.2 MG/DL (30.0-125.0) White Blood Count 7.1 K/UL (4.8-10.8) Red Blood Count 4.54 M/UL (4.70-6.10) L Hemoglobin 11.7 G/DL (14.2-18.0) L Hematocrit 35.8 % (42.0-52.0) L Mean Corpuscular Volume 79 FL (80-99) L Mean Corpuscular Hemoglobin 25.9 PG (27.0-31.0) L Mean Corpuscular Hemoglobin Concent 32.8 G/DL (32.0-36.0) Red Cell Distribution Width 15.2 % (11.6-14.8) H Platelet Count 348 K/UL (150-450) Mean Platelet Volume 6.5 FL (6.5-10.1) Neutrophils (%) (Auto) 66.0 % (45.0-75.0) Lymphocytes (%) (Auto) 16.6 % (20.0-45.0) L Monocytes (%) (Auto) 8.6 % (1.0-10.0) Eosinophils (%) (Auto) 6.8 % (0.0-3.0) H Basophils (%) (Auto) 2.0 % (0.0-2.0) Sodium Level 141 MMOL/L (136-145) Potassium Level 4.0 MMOL/L (3.5-5.1) Chloride Level 106 MMOL/L (98-107) Carbon Dioxide Level 27 MMOL/L (21-32) Anion Gap 8 mmol/L (5-15) Blood Urea Nitrogen 33 mg/dL (7-18) H Creatinine 1.5 MG/DL (0.55-1.30) H Estimat Glomerular Filtration Rate mL/min (>60) Glucose Level 126 MG/DL (74-106) H Calcium Level 8.9 MG/DL (8.5-10.1) Total Bilirubin 0.4 MG/DL (0.2-1.0) Aspartate Amino Transf (AST/SGOT) 19 U/L (15-37) Alanine Aminotransferase (ALT/SGPT) 11 U/L (12-78) L Alkaline Phosphatase 61 U/L (46-116) Total Protein 8.2 G/DL (6.4-8.2) Albumin 2.8 G/DL (3.4-5.0) L Globulin 5.4 g/dL Albumin/Globulin Ratio 0.5 (1.0-2.7) L Height (Feet): 5 Height (Inches): 11.00 Weight (Pounds): 145 Medications Current Medications Medications (Trade) Dose Ordered Sig/Nicole Route PRN Reason Start Time Stop Time Status Last Admin Dose Admin Acetaminophen (Tylenol) 650 mg Q4H PRN ORAL fever 03/09/18 02:00 04/08/18 01:59 Acetaminophen/ Hydrocodone Bitart ([place] 5/325) 1 tab Q4H PRN ORAL Moderate Pain (Pain Scale 4-6) 03/09/18 02:00 03/16/18 01:59 Albuterol/ Ipratropium (Albuterol/ Ipratropium) 3 ml Q4H PRN HHN Shortness of Breath 03/09/18 02:00 03/14/18 01:59 Cefepime HCl 2 gm/ Dextrose 110 ml @ 220 mls/hr Q24H IV 03/09/18 09:00 03/16/18 08:59 03/10/18 09:15 Heparin Sodium (Porcine) (Heparin 5000 units/ml) 5,000 units EVERY 12 HOURS SUBQ 03/09/18 09:00 04/08/18 08:59 03/10/18 09:24 Morphine Sulfate (Morphine Sulfate) 2 mg Q4H PRN IVP Severe Pain (Pain Scale 7-10) 03/09/18 02:00 03/16/18 01:59 Ondansetron HCl (Zofran) 4 mg Q6H PRN IVP Nausea & Vomiting 03/09/18 02:00 04/08/18 01:59 Phenazopyridine HCl (Pyridium) 100 mg DAILY PRN ORAL dysuria 03/09/18 02:00 04/08/18 01:59 Polyethylene Glycol (Miralax) 17 gm DAILYPRN PRN ORAL Constipation 03/09/18 02:00 04/08/18 01:59 Tamsulosin HCl (Flomax) 0.4 mg BEDTIME ORAL 03/09/18 21:00 04/08/18 20:59 03/09/18 21:31 Temazepam (Restoril) 15 mg HSPRN PRN ORAL Insomnia 03/09/18 02:00 03/16/18 01:59 Vancomycin HCl (Vanco rx to dose) 1 ea DAILY PRN MISC Per rx protocol 03/09/18 02:30 04/08/18 02:29 Vancomycin HCl 1 gm/Dextrose 275 ml @ 183.3 mls/ hr Q24H IVPB 03/09/18 03:00 03/14/18 02:59 03/10/18 03:07 Assessment/Plan Problem List: (1) Decubitus ulcer Assessment & Plan: Patient with stage IV full thickness pressure injury to R buttocks (L)1.5cm x (W)1.4cm x (D)0.3cm .Wound bed moist with Biofilm,macerated borders .Non-blanchable erythema periwound without induration. DTPI noted to sacrum(L)4cm x (W)3.3cm.Wound bed maroon DTPI noted to L buttocks (L)5cm x (W)2.5cm site indurated Non-blanching erythema noted to R hip . Plantar R heel boggy with non-blanching erythema (L)3cm x (W)3.5cm. Loose,dry scab noted to lateral R foot (L)2cm x (W)2cm. Dry loose scab distal lateral L foot (L)0.5cm x(W)0.7cm Penis red,warm and swollen. All wounds present upon admission and will be cared for during hospital stay Tx.Plan: Cleanse Wound R buttocks with Saline.Apply Therahoney.Cavilon periwound.Cover with Optifoam drsg Daily and prn. Apply Moisture Barrier to Sacrum and L buttocks DTPIs .Cover with Optifoam .Change weekly and prn. Cavilon wipes to both heels and lateral aspects of feet .Off-load with pillow. Surface support mattress. Encourage and assist with repositioning at least every 2hours or as tolerated. ICD Codes: L89.90 - Pressure ulcer of unspecified site, unspecified stage SNOMED: 265291107 Qualifiers: Bentley Enrique Mar 10, 2018 17:17
--- NOTE | 2018-03-10 18:55 | Infectious Diseases Prog Note ---
Assessment/Plan Assessment/Plan Abx: IV Vancomycin 03/09- CEfepime 03/09- Ceftriaxone x1 03/08 Assessment: REcurrent Penile cellulitis/balanoposthitis Probable UTI -u.a wbc 40-60, nit neg,leukl +3; ucx GNR Phimosis Afebrile Leukocytosis,SP Hx of balanoposthitis/penile cellulitis 10/2017, sp Rx Recurrent UTI -10/2017 ucx >100K E.coli (arreaga S) -09/2017: ucx >100K P. stuarti (R Amp, ancef, Genta; I Cipro/levo, Zosyn; CEftriaxone reported as S- however Anthony 8 0 ?resistant), S. Meropenem - 07/2017: MDR Proteus mirabilis BPH COPD DM2 cachexia chronic left shoulder dislocation Dementia snf resident Plan: -Continue empiric Cefepime#2 (abx d#3) pending urine culture -Continue IV Vancomycin #2 for penile cellulitis -03/08 SP Ceftriaxone x1 -10/27 SP Bactrim#3 -10/24 SP Meropenem #4 -10/22 SP IV Vancomycin # 2 -/ Sp one time dose of AMikacin and Cefepime -10/02 SP Ertapenem #5 -09/27 SP Meropenem #2 -09/24 SP Keflex and Ertapenem x1 -07/2017 SP Ertapenem #5 -f/u cx -Monitor CBC/CMP, temperatures -Uro f/u- refusing circumcision at this point -Sx f/u Thank you for this consultation. Will continue to follow along with you. Discussed with RN. Subjective Allergies: Coded Allergies: No Known Allergies (Unverified , 07/19/17) Subjective afebrile leukocytosis resolved Objective Vital Signs Last 24 Hour Vital Signs Date Time Temp Pulse Resp B/P (MAP) Pulse Ox O2 Delivery O2 Flow Rate FiO2 03/10/18 15:53 97.7 93 20 139/94 (109) 99 03/10/18 12:00 97.5 75 20 139/71 (93) 97 03/10/18 09:00 Room Air 03/10/18 08:15 60 16 Room Air 21 03/10/18 08:00 97.3 99 20 119/68 (85) 97 03/10/18 04:00 97.5 84 20 126/55 (78) 93 03/10/18 00:00 97.7 90 20 129/70 (89) 94 03/09/18 21:00 Room Air 03/09/18 20:00 97.9 89 18 121/53 (75) 97 03/09/18 19:40 81 18 Room Air 21 Height (Feet): 5 Height (Inches): 11.00 Weight (Pounds): 145 Objective General Appearance: moderate distress HEENT: atraumatic, bilateral eye normal inspection, moist mucus membranes Neck: normal inspection, full range of motion, supple Respiratory: normal inspection, lungs clear Cardiovascular : regular rate, rhythm Gastrointestinal: other - Distended, tender over suprapubic region Genitourinary: no CVA tenderness, other - Phimosis,, irritated foreskin, urine appears trapped in foreskin Musculoskeletal: normal inspection, back normal, normal range of motion Neurologic: alert, responsive Skin: normal color Microbiology Date/Time Source Procedure Growth Status 03/08/18 20:33 Urine,Clean Catch Urine Culture - Preliminary Gram Negative Bacillus 1 Resulted 03/08/18 22:05 Rectum Received Laboratory Tests Test 03/10/18 07:00 03/10/18 10:00 Urine Eosinophils None seen (NONE SEEN) Urine Random Total Protein 75 MG/DL (< 11.9) H Urine Random Sodium 98 mmol/L (20-110) Urine Creatinine 93.2 MG/DL (30.0-125.0) White Blood Count 7.1 K/UL (4.8-10.8) Red Blood Count 4.54 M/UL (4.70-6.10) L Hemoglobin 11.7 G/DL (14.2-18.0) L Hematocrit 35.8 % (42.0-52.0) L Mean Corpuscular Volume 79 FL (80-99) L Mean Corpuscular Hemoglobin 25.9 PG (27.0-31.0) L Mean Corpuscular Hemoglobin Concent 32.8 G/DL (32.0-36.0) Red Cell Distribution Width 15.2 % (11.6-14.8) H Platelet Count 348 K/UL (150-450) Mean Platelet Volume 6.5 FL (6.5-10.1) Neutrophils (%) (Auto) 66.0 % (45.0-75.0) Lymphocytes (%) (Auto) 16.6 % (20.0-45.0) L Monocytes (%) (Auto) 8.6 % (1.0-10.0) Eosinophils (%) (Auto) 6.8 % (0.0-3.0) H Basophils (%) (Auto) 2.0 % (0.0-2.0) Sodium Level 141 MMOL/L (136-145) Potassium Level 4.0 MMOL/L (3.5-5.1) Chloride Level 106 MMOL/L (98-107) Carbon Dioxide Level 27 MMOL/L (21-32) Anion Gap 8 mmol/L (5-15) Blood Urea Nitrogen 33 mg/dL (7-18) H Creatinine 1.5 MG/DL (0.55-1.30) H Estimat Glomerular Filtration Rate mL/min (>60) Glucose Level 126 MG/DL (74-106) H Calcium Level 8.9 MG/DL (8.5-10.1) Total Bilirubin 0.4 MG/DL (0.2-1.0) Aspartate Amino Transf (AST/SGOT) 19 U/L (15-37) Alanine Aminotransferase (ALT/SGPT) 11 U/L (12-78) L Alkaline Phosphatase 61 U/L (46-116) Total Protein 8.2 G/DL (6.4-8.2) Albumin 2.8 G/DL (3.4-5.0) L Globulin 5.4 g/dL Albumin/Globulin Ratio 0.5 (1.0-2.7) L Current Medications Medications (Trade) Dose Ordered Sig/Nicole Route PRN Reason Start Time Stop Time Status Last Admin Dose Admin Acetaminophen (Tylenol) 650 mg Q4H PRN ORAL fever 03/09/18 02:00 04/08/18 01:59 Acetaminophen/ Hydrocodone Bitart ([place] 5/325) 1 tab Q4H PRN ORAL Moderate Pain (Pain Scale 4-6) 03/09/18 02:00 03/16/18 01:59 Albuterol/ Ipratropium (Albuterol/ Ipratropium) 3 ml Q4H PRN HHN Shortness of Breath 03/09/18 02:00 03/14/18 01:59 Cefepime HCl 2 gm/ Dextrose 110 ml @ 220 mls/hr Q24H IV 03/09/18 09:00 03/16/18 08:59 03/10/18 09:15 Heparin Sodium (Porcine) (Heparin 5000 units/ml) 5,000 units EVERY 12 HOURS SUBQ 03/09/18 09:00 04/08/18 08:59 03/10/18 09:24 Morphine Sulfate (Morphine Sulfate) 2 mg Q4H PRN IVP Severe Pain (Pain Scale 7-10) 03/09/18 02:00 03/16/18 01:59 Ondansetron HCl (Zofran) 4 mg Q6H PRN IVP Nausea & Vomiting 03/09/18 02:00 04/08/18 01:59 Phenazopyridine HCl (Pyridium) 100 mg DAILY PRN ORAL dysuria 03/09/18 02:00 04/08/18 01:59 Polyethylene Glycol (Miralax) 17 gm DAILYPRN PRN ORAL Constipation 03/09/18 02:00 04/08/18 01:59 Tamsulosin HCl (Flomax) 0.4 mg BEDTIME ORAL 03/09/18 21:00 04/08/18 20:59 03/09/18 21:31 Temazepam (Restoril) 15 mg HSPRN PRN ORAL Insomnia 03/09/18 02:00 03/16/18 01:59 Vancomycin HCl (Vanco rx to dose) 1 ea DAILY PRN MISC Per rx protocol 03/09/18 02:30 04/08/18 02:29 Vancomycin HCl 1 gm/Dextrose 275 ml @ 183.3 mls/ hr Q24H IVPB 03/09/18 03:00 03/14/18 02:59 03/10/18 03:07 Radha Barron M.D. Mar 10, 2018 18:55
[2018-03-10 20:00] VITALS: BP 142/73
[2018-03-10] MEDS: Tamsulosin 0.4mg cap ORAL SCH (21:21)
[2018-03-11] VITALS: BP 135/75
[2018-03-11] MEDS: Vancomycin 1 GM in D5W 275 ML IVPB SCH (02:43)
[2018-03-11 04:00] VITALS: BP 113/68
--- NOTE | 2018-03-11 08:23 | General Progress Note ---
Assessment/Plan Problem List: (1) COPD (chronic obstructive pulmonary disease) ICD Codes: J44.9 - Chronic obstructive pulmonary disease, unspecified SNOMED: 19118467 (2) Severe protein-calorie malnutrition ICD Codes: E43 - Unspecified severe protein-calorie malnutrition SNOMED: 791618497 (3) BPH (benign prostatic hyperplasia) ICD Codes: N40.0 - Benign prostatic hyperplasia without lower urinary tract symptoms SNOMED: 023927164 (4) Balanoposthitis ICD Codes: N47.6 - Balanoposthitis SNOMED: 41358067 (5) Phimosis ICD Codes: N47.1 - Phimosis SNOMED: 632821775 (6) Urinary retention ICD Codes: R33.9 - Retention of urine, unspecified SNOMED: 302697604 Status: stable, progressing Assessment/Plan ot pt diet wound care abx uro f/u cbc bmp am Subjective Constitutional: Reports: weakness Allergies: Coded Allergies: No Known Allergies (Unverified , 07/19/17) All Systems: reviewed and negative except above Subjective calm in bed eating, sl penile pain Objective Last 24 Hour Vital Signs Date Time Temp Pulse Resp B/P (MAP) Pulse Ox O2 Delivery O2 Flow Rate FiO2 03/11/18 07:37 85 18 Room Air 21 03/11/18 04:00 98.1 95 18 113/68 (83) 95 03/11/18 00:00 98.4 89 18 135/75 (95) 99 03/10/18 21:00 Room Air 03/10/18 20:08 86 16 Room Air 21 03/10/18 20:00 98.0 98 20 142/73 (96) 99 03/10/18 15:53 97.7 93 20 139/94 (109) 99 03/10/18 12:00 97.5 75 20 139/71 (93) 97 03/10/18 09:00 Room Air Intake and Output 03/10/18 03/11/18 19:00 07:00 Intake Total 830 ml 875.0 ml Balance 830 ml 875.0 ml Intake Oral 720 ml 600 ml IV Total 110 ml 275.0 ml # Voids 2 2 Laboratory Tests 03/10/18 10:00: White Blood Count 7.1, Red Blood Count 4.54L, Hemoglobin 11.7L, Hematocrit 35.8L , Mean Corpuscular Volume 79L, Mean Corpuscular Hemoglobin 25.9L, Mean Corpuscular Hemoglobin Concent 32.8, Red Cell Distribution Width 15.2H, Platelet Count 348, Mean Platelet Volume 6.5, Neutrophils (%) (Auto) 66.0, Lymphocytes (%) (Auto) 16.6L, Monocytes (%) (Auto) 8.6, Eosinophils (%) (Auto) 6.8H, Basophils (%) (Auto) 2.0, Sodium Level 141, Potassium Level 4.0, Chloride Level 106, Carbon Dioxide Level 27, Anion Gap 8, Blood Urea Nitrogen 33H, Creatinine 1.5H, Estimat Glomerular Filtration Rate , Glucose Level 126H, Calcium Level 8.9, Total Bilirubin 0.4, Aspartate Amino Transf (AST/SGOT) 19, Alanine Aminotransferase (ALT/SGPT) 11L, Alkaline Phosphatase 61, Total Protein 8.2, Albumin 2.8L, Globulin 5.4, Albumin/Globulin Ratio 0.5L Height (Feet): 5 Height (Inches): 11.00 Weight (Pounds): 145 General Appearance: lethargic, confused EENT: normal ENT inspection Neck: normal alignment Cardiovascular: normal peripheral pulses, normal rate, regular rhythm Respiratory/Chest: chest wall non-tender, lungs clear, normal breath sounds Abdomen: normal bowel sounds, non tender, soft Extremities: normal inspection Edema: no edema noted Arm (L), no edema noted Arm (R), no edema noted Leg (L), no edema noted Leg (R), no edema noted Pedal (L), no edema noted Pedal (R), no edema noted Generalized Neurologic: motor weakness Skin: normal pigmentation, warm/dry Samir Cramer DO Mar 11, 2018 08:23
[2018-03-11] MEDS: Heparin 5000 units/ml inj SUBQ SCH ×2 (08:40→21:15)
[2018-03-11 08:51] VITALS: BP 153/84
[2018-03-11] MEDS: Cefepime HCl 2 GM in D5W 110 ML IV SCH (09:00)
--- NOTE | 2018-03-11 09:09 | Pulmonology Progress Note ---
Assessment/Plan Assessment/Plan ASSESSMENT Recurrent penile cellulitis/balanoposthitis Recurrent UTI UTI with Proteus Protein calorie malnutrition with cachexia and poor oral intake BPH chronic phimosis dementia anemia COPD JOVANI on chronic renal insufficiency possible diabetic nephropathy versus hypertensive nephrosclerosis PLAN OF CARE Med Surg floor recs appreciated : no evidence of abscess, Lei gangrene, no surgical intervention necessary at this time urologist offered circumcision for chronic phimosis , patient declined at this time urine cx+ Proteus, repeated GPC; blood culture negative prel abx as per ID recs Pyridium for comfort DVT prophylaxis O2 prn, titrate to keep pulse ox above 92 %, pulmonary toilet prn nephro follows monitor renal parameters, electrolytes avoid nephrotoxic correct electrolytes as needed urine studies as per nephrology recs/appreciated continue Flomax monitor H&H with goal to keep hemoglobin above 7, remain stable dietary recommendations regarding nutritional supplements BS management with sliding scale of insulin/sensitive, check HgA1c Pain management Supportive care case discussed and evaluated by supervising physician Subjective Allergies: Coded Allergies: No Known Allergies (Unverified , 07/19/17) Subjective leukocytosis resolved, afebrile, Objective Last 24 Hour Vital Signs Date Time Temp Pulse Resp B/P (MAP) Pulse Ox O2 Delivery O2 Flow Rate FiO2 03/11/18 08:51 97.2 119 20 153/84 (107) 94 03/11/18 07:37 85 18 Room Air 21 03/11/18 04:00 98.1 95 18 113/68 (83) 95 03/11/18 00:00 98.4 89 18 135/75 (95) 99 03/10/18 21:00 Room Air 03/10/18 20:08 86 16 Room Air 21 03/10/18 20:00 98.0 98 20 142/73 (96) 99 03/10/18 15:53 97.7 93 20 139/94 (109) 99 03/10/18 12:00 97.5 75 20 139/71 (93) 97 Intake and Output 03/10/18 03/11/18 19:00 07:00 Intake Total 830 ml 875.0 ml Balance 830 ml 875.0 ml Intake Oral 720 ml 600 ml IV Total 110 ml 275.0 ml # Voids 2 2 General Appearance: other - awake, confused elderly male in NAD HEENT: normocephalic, atraumatic, anicteric Respiratory/Chest: chest wall non-tender, lungs clear Cardiovascular: normal rate, no JVD Abdomen: normal bowel sounds, soft, non tender Genitourinary: other - Phimosis, irritated red foreskin, Neurologic/Psychiatric: abnormal gait, alert, responsive - but confused Musculoskeletal: atrophy - BLE Microbiology Date/Time Source Procedure Growth Status 03/09/18 06:50 Blood Blood Culture - Preliminary NO GROWTH AFTER 24 HOURS Resulted 03/09/18 06:40 Blood Blood Culture - Preliminary NO GROWTH AFTER 24 HOURS Resulted 03/08/18 22:05 Nasal Nares MRSA Culture - Final Staphylococcus Aureus - Mrsa Complete 03/10/18 07:00 Indwelling Cath Urine Culture - Preliminary Gram Positive Cocci Resulted 03/08/18 20:33 Urine,Clean Catch Urine Culture - Preliminary Proteus Mirabilis Resulted 03/08/18 22:05 Rectum VRE Culture - Final Enterococcus Faecalis - Vre Complete Laboratory Tests 03/10/18 10:00: White Blood Count 7.1, Red Blood Count 4.54L, Hemoglobin 11.7L, Hematocrit 35.8L , Mean Corpuscular Volume 79L, Mean Corpuscular Hemoglobin 25.9L, Mean Corpuscular Hemoglobin Concent 32.8, Red Cell Distribution Width 15.2H, Platelet Count 348, Mean Platelet Volume 6.5, Neutrophils (%) (Auto) 66.0, Lymphocytes (%) (Auto) 16.6L, Monocytes (%) (Auto) 8.6, Eosinophils (%) (Auto) 6.8H, Basophils (%) (Auto) 2.0, Sodium Level 141, Potassium Level 4.0, Chloride Level 106, Carbon Dioxide Level 27, Anion Gap 8, Blood Urea Nitrogen 33H, Creatinine 1.5H, Estimat Glomerular Filtration Rate , Glucose Level 126H, Calcium Level 8.9, Total Bilirubin 0.4, Aspartate Amino Transf (AST/SGOT) 19, Alanine Aminotransferase (ALT/SGPT) 11L, Alkaline Phosphatase 61, Total Protein 8.2, Albumin 2.8L, Globulin 5.4, Albumin/Globulin Ratio 0.5L Current Medications Medications (Trade) Dose Ordered Sig/Nicole Route PRN Reason Start Time Stop Time Status Last Admin Dose Admin Acetaminophen (Tylenol) 650 mg Q4H PRN ORAL fever 03/09/18 02:00 12/29/18 01:59 Acetaminophen/ Hydrocodone Bitart ([place] 5/325) 1 tab Q4H PRN ORAL Moderate Pain (Pain Scale 4-6) 03/09/18 02:00 03/16/18 01:59 Albuterol/ Ipratropium (Albuterol/ Ipratropium) 3 ml Q4H PRN HHN Shortness of Breath 03/09/18 02:00 03/14/18 01:59 Cefepime HCl 2 gm/ Dextrose 110 ml @ 220 mls/hr Q24H IV 03/09/18 09:00 03/16/18 08:59 03/10/18 09:15 Heparin Sodium (Porcine) (Heparin 5000 units/ml) 5,000 units EVERY 12 HOURS SUBQ 03/09/18 09:00 04/08/18 08:59 03/11/18 08:40 Morphine Sulfate (Morphine Sulfate) 2 mg Q4H PRN IVP Severe Pain (Pain Scale 7-10) 03/09/18 02:00 03/16/18 01:59 Ondansetron HCl (Zofran) 4 mg Q6H PRN IVP Nausea & Vomiting 03/09/18 02:00 04/08/18 01:59 Phenazopyridine HCl (Pyridium) 100 mg DAILY PRN ORAL dysuria 03/09/18 02:00 04/08/18 01:59 Polyethylene Glycol (Miralax) 17 gm DAILYPRN PRN ORAL Constipation 03/09/18 02:00 04/08/18 01:59 Tamsulosin HCl (Flomax) 0.4 mg BEDTIME ORAL 03/09/18 21:00 04/08/18 20:59 03/10/18 21:21 Temazepam (Restoril) 15 mg HSPRN PRN ORAL Insomnia 03/09/18 02:00 03/16/18 01:59 Vancomycin HCl (Vanco rx to dose) 1 ea DAILY PRN MISC Per rx protocol 03/09/18 02:30 04/08/18 02:29 Vancomycin HCl 1 gm/Dextrose 275 ml @ 183.3 mls/ hr Q24H IVPB 03/09/18 03:00 03/14/18 02:59 03/11/18 02:43 Aster Christensen NP Mar 11, 2018 09:09
[2018-03-11] MEDS: NovoLOG Insulin Flexpen SUBQ SCH ×3 (11:30→21:00)
[2018-03-11 12:00] VITALS: BP 127/58
--- NOTE | 2018-03-11 12:30 | Infectious Diseases Prog Note ---
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 Will continue to follow along with you. Discussed with RN. Subjective Allergies: Coded Allergies: No Known Allergies (Unverified , 07/19/17) Subjective afebrile no leukocytosis refusing IV abx Objective Vital Signs Last 24 Hour Vital Signs Date Time Temp Pulse Resp B/P (MAP) Pulse Ox O2 Delivery O2 Flow Rate FiO2 03/11/18 09:00 Room Air 03/11/18 08:51 97.2 119 20 153/84 (107) 94 03/11/18 07:37 85 18 Room Air 21 03/11/18 04:00 98.1 95 18 113/68 (83) 95 03/11/18 00:00 98.4 89 18 135/75 (95) 99 03/10/18 21:00 Room Air 03/10/18 20:08 86 16 Room Air 21 03/10/18 20:00 98.0 98 20 142/73 (96) 99 03/10/18 15:53 97.7 93 20 139/94 (109) 99 Height (Feet): 5 Height (Inches): 11.00 Weight (Pounds): 145 Objective General Appearance: moderate distress HEENT: atraumatic, bilateral eye normal inspection, moist mucus membranes Neck: normal inspection, full range of motion, supple Respiratory: normal inspection, lungs clear Cardiovascular : regular rate, rhythm Gastrointestinal: other - Distended, tender over suprapubic region Genitourinary: no CVA tenderness, other - Phimosis,, irritated foreskin, urine appears trapped in foreskin Musculoskeletal: normal inspection, back normal, normal range of motion Neurologic: alert, responsive Skin: normal color Microbiology Date/Time Source Procedure Growth Status 03/09/18 06:50 Blood Blood Culture - Preliminary NO GROWTH AFTER 24 HOURS Resulted 03/09/18 06:40 Blood Blood Culture - Preliminary NO GROWTH AFTER 24 HOURS Resulted 03/08/18 22:05 Nasal Nares MRSA Culture - Final Staphylococcus Aureus - Mrsa Complete 03/10/18 07:00 Indwelling Cath Urine Culture - Preliminary Gram Positive Cocci Resulted 03/08/18 20:33 Urine,Clean Catch Urine Culture - Preliminary Proteus Mirabilis Resulted 03/08/18 22:05 Rectum VRE Culture - Final Enterococcus Faecalis - Vre Complete Current Medications Medications (Trade) Dose Ordered Sig/Nicole Route PRN Reason Start Time Stop Time Status Last Admin Dose Admin Acetaminophen (Tylenol) 650 mg Q4H PRN ORAL fever 03/09/18 02:00 04/08/18 01:59 Acetaminophen/ Hydrocodone Bitart ([place] 5/325) 1 tab Q4H PRN ORAL Moderate Pain (Pain Scale 4-6) 03/09/18 02:00 03/16/18 01:59 Albuterol/ Ipratropium (Albuterol/ Ipratropium) 3 ml Q4H PRN HHN Shortness of Breath 03/09/18 02:00 03/14/18 01:59 Cefepime HCl 2 gm/ Dextrose 110 ml @ 220 mls/hr Q24H IV 03/09/18 09:00 03/16/18 08:59 03/10/18 09:15 Dextrose (Dextrose 50%) 25 ml Q30M PRN IV Hypoglycemia 03/11/18 09:10 04/10/18 09:09 Dextrose (Dextrose 50%) 50 ml Q30M PRN IV Hypoglycemia 03/11/18 09:10 04/10/18 09:09 Heparin Sodium (Porcine) (Heparin 5000 units/ml) 5,000 units EVERY 12 HOURS SUBQ 03/09/18 09:00 04/08/18 08:59 03/11/18 08:40 Insulin Aspart (NovoLOG) BEFORE MEALS AND HS SUBQ 03/11/18 11:30 04/10/18 11:29 Morphine Sulfate (Morphine Sulfate) 2 mg Q4H PRN IVP Severe Pain (Pain Scale 7-10) 03/09/18 02:00 03/16/18 01:59 Ondansetron HCl (Zofran) 4 mg Q6H PRN IVP Nausea & Vomiting 03/09/18 02:00 04/08/18 01:59 Phenazopyridine HCl (Pyridium) 100 mg DAILY PRN ORAL dysuria 03/09/18 02:00 04/08/18 01:59 Polyethylene Glycol (Miralax) 17 gm DAILYPRN PRN ORAL Constipation 03/09/18 02:00 04/08/18 01:59 Tamsulosin HCl (Flomax) 0.4 mg BEDTIME ORAL 03/09/18 21:00 04/08/18 20:59 03/10/18 21:21 Temazepam (Restoril) 15 mg HSPRN PRN ORAL Insomnia 03/09/18 02:00 03/16/18 01:59 Vancomycin HCl (Vanco rx to dose) 1 ea DAILY PRN MISC Per rx protocol 03/09/18 02:30 04/08/18 02:29 Vancomycin HCl 1 gm/Dextrose 275 ml @ 183.3 mls/ hr Q24H IVPB 03/09/18 03:00 03/14/18 02:59 03/11/18 02:43 Radha Barron M.D. Mar 11, 2018 12:30
[2018-03-11] MEDS ORDERED: Bactrim-DS 1 tab ORAL SCH (13:30)
[2018-03-11 16:33] VITALS: BP 151/82
[2018-03-11 20:00] VITALS: BP 129/64
[2018-03-11] MEDS: Bactrim-DS 1 tab ORAL SCH (21:13)
[2018-03-11] MEDS: Tamsulosin 0.4mg cap ORAL SCH (21:13)
[2018-03-12] VITALS: BP 117/90
[2018-03-12 04:00] VITALS: BP 152/72
[2018-03-12] MEDS: NovoLOG Insulin Flexpen SUBQ SCH ×4 (06:30→21:23)
[2018-03-12 07:17] LABS: BASOPHILS % (AUTO) 1.2 % (0.0-2.0); EOSINOPHILS % (AUTO) 4.1 % (0.0-3.0); HEMATOCRIT 36.6 % (42.0-52.0); HEMOGLOBIN 12.1 G/DL (14.2-18.0); LYMPHOCYTES % (AUTO) 17.6 % (20.0-45.0); MEAN CORPUSCULAR VOLUME 78 FL (80-99); NEUTROPHILS % (AUTO) 68.1 % (45.0-75.0); PLATELET COUNT 381 K/UL (150-450); RED BLOOD COUNT 4.67 M/UL (4.70-6.10); RED CELL DISTRIBUTION WIDTH 14.6 % (11.6-14.8); WHITE BLOOD COUNT 9.8 K/UL (4.8-10.8)
[2018-03-12 07:43] LABS: ANION GAP 11 mmol/L (5-15); BLOOD UREA NITROGEN 28 mg/dL (7-18); CALCIUM 9.2 MG/DL (8.5-10.1); CARBON DIOXIDE 24 MMOL/L (21-32); CHLORIDE 104 MMOL/L (98-107); CREATININE 1.4 MG/DL (0.55-1.30); SODIUM 139 MMOL/L (136-145)
[2018-03-12 08:00] VITALS: BP 136/69
--- NOTE | 2018-03-12 08:16 | General Progress Note ---
Assessment/Plan Problem List: (1) COPD (chronic obstructive pulmonary disease) ICD Codes: J44.9 - Chronic obstructive pulmonary disease, unspecified SNOMED: 14237045 (2) Severe protein-calorie malnutrition ICD Codes: E43 - Unspecified severe protein-calorie malnutrition SNOMED: 492037544 (3) BPH (benign prostatic hyperplasia) ICD Codes: N40.0 - Benign prostatic hyperplasia without lower urinary tract symptoms SNOMED: 866239467 (4) Balanoposthitis ICD Codes: N47.6 - Balanoposthitis SNOMED: 67244792 (5) Phimosis ICD Codes: N47.1 - Phimosis SNOMED: 960718305 (6) Urinary retention ICD Codes: R33.9 - Retention of urine, unspecified SNOMED: 278620939 Status: stable, progressing Assessment/Plan ot pt diet wound care abx uro f/u cbc bmp am dc plan snf Subjective Constitutional: Reports: weakness Allergies: Coded Allergies: No Known Allergies (Unverified , 07/19/17) All Systems: reviewed and negative except above Subjective calm in bed eating, sl penile pain Objective Last 24 Hour Vital Signs Date Time Temp Pulse Resp B/P (MAP) Pulse Ox O2 Delivery O2 Flow Rate FiO2 03/12/18 07:50 89 18 Room Air 21 03/12/18 04:00 97.7 86 20 152/72 (98) 95 03/12/18 00:00 97.5 95 20 117/90 (99) 95 03/11/18 21:00 Room Air 03/11/18 20:00 98.5 111 19 129/64 (85) 97 03/11/18 18:45 101 18 Room Air 21 03/11/18 16:33 97.5 87 20 151/82 (105) 97 03/11/18 12:00 97.0 18 127/58 (81) 92 03/11/18 09:00 Room Air 03/11/18 08:51 97.2 119 20 153/84 (107) 94 Intake and Output 03/11/18 03/12/18 19:00 07:00 Intake Total 600 ml Balance 600 ml Intake Oral 600 ml # Voids 4 3 Laboratory Tests 03/12/18 04:55: White Blood Count 9.8, Red Blood Count 4.67L, Hemoglobin 12.1L, Hematocrit 36.6L , Mean Corpuscular Volume 78L, Mean Corpuscular Hemoglobin 26.0L, Mean Corpuscular Hemoglobin Concent 33.2, Red Cell Distribution Width 14.6, Platelet Count 381, Mean Platelet Volume 6.6, Neutrophils (%) (Auto) 68.1, Lymphocytes (% ) (Auto) 17.6L, Monocytes (%) (Auto) 9.0, Eosinophils (%) (Auto) 4.1H, Basophils (%) (Auto) 1.2, Sodium Level 139, Potassium Level 4.0, Chloride Level 104, Carbon Dioxide Level 24, Anion Gap 11, Blood Urea Nitrogen 28H, Creatinine 1.4H, Estimat Glomerular Filtration Rate , Glucose Level 101, Hemoglobin A1c 5.8 , Calcium Level 9.2 Height (Feet): 5 Height (Inches): 11.00 Weight (Pounds): 145 General Appearance: lethargic EENT: normal ENT inspection Neck: normal alignment Cardiovascular: normal peripheral pulses, normal rate, regular rhythm Respiratory/Chest: chest wall non-tender, lungs clear, normal breath sounds Abdomen: normal bowel sounds, non tender, soft Extremities: normal inspection Edema: no edema noted Arm (L), no edema noted Arm (R), no edema noted Leg (L), no edema noted Leg (R), no edema noted Pedal (L), no edema noted Pedal (R), no edema noted Generalized Neurologic: motor weakness Skin: normal pigmentation, warm/dry Samir Cramer DO Mar 12, 2018 08:16
[2018-03-12] MEDS: Heparin 5000 units/ml inj SUBQ SCH ×2 (09:00→21:22)
[2018-03-12] MEDS: Bactrim-DS 1 tab ORAL SCH ×2 (09:09→21:21)
--- NOTE | 2018-03-12 09:13 | Pulmonology Progress Note ---
Assessment/Plan Assessment/Plan ASSESSMENT Recurrent penile cellulitis/balanoposthitis Recurrent UTI UTI with Proteus Protein calorie malnutrition with cachexia and poor oral intake BPH chronic phimosis dementia anemia COPD JOVANI on chronic renal insufficiency possible diabetic nephropathy versus hypertensive nephrosclerosis PLAN OF CARE Med Surg floor recs appreciated : no evidence of abscess, Lei gangrene, no surgical intervention necessary at this time urologist offered circumcision for chronic phimosis , patient declined at this time urine cx+ Proteus ESBL, repeated SCON, blood culture negative prel abx as per ID recs Pyridium for comfort DVT prophylaxis O2 prn, titrate to keep pulse ox above 92 %, pulmonary toilet prn nephro follows monitor renal parameters, electrolytes cerat down to 1.4 avoid nephrotoxic correct electrolytes as needed urine studies as per nephrology recs/appreciated continue Flomax monitor H&H with goal to keep hemoglobin above 7, remain stable dietary recommendations regarding nutritional supplements BS management with sliding scale of insulin/sensitive, check HgA1c Pain management Supportive care case discussed and evaluated by supervising physician Subjective Allergies: Coded Allergies: No Known Allergies (Unverified , 07/19/17) Subjective leukocytosis resolved, afebrile, creat down to 1.4 Objective Last 24 Hour Vital Signs Date Time Temp Pulse Resp B/P (MAP) Pulse Ox O2 Delivery O2 Flow Rate FiO2 03/12/18 07:50 89 18 Room Air 21 03/12/18 04:00 97.7 86 20 152/72 (98) 95 03/12/18 00:00 97.5 95 20 117/90 (99) 95 03/11/18 21:00 Room Air 03/11/18 20:00 98.5 111 19 129/64 (85) 97 03/11/18 18:45 101 18 Room Air 21 03/11/18 16:33 97.5 87 20 151/82 (105) 97 03/11/18 12:00 97.0 18 127/58 (81) 92 Intake and Output 03/11/18 03/12/18 19:00 07:00 Intake Total 600 ml Balance 600 ml Intake Oral 600 ml # Voids 4 3 Objective General Appearance: other - awake, confused elderly male in NAD HEENT: normocephalic, atraumatic, anicteric Respiratory/Chest: chest wall non-tender, lungs clear Cardiovascular: normal rate, no JVD Abdomen: normal bowel sounds, soft, non tender Genitourinary: phimosis, irritated red foreskin, Neurologic/Psychiatric: abnormal gait, alert, responsive - but confused Musculoskeletal: atrophy - BLE Microbiology Date/Time Source Procedure Growth Status 03/10/18 07:00 Indwelling Cath Urine Culture - Preliminary Staphylococcus Sp Coag Neg Resulted Laboratory Tests 03/12/18 04:55: White Blood Count 9.8, Red Blood Count 4.67L, Hemoglobin 12.1L, Hematocrit 36.6L , Mean Corpuscular Volume 78L, Mean Corpuscular Hemoglobin 26.0L, Mean Corpuscular Hemoglobin Concent 33.2, Red Cell Distribution Width 14.6, Platelet Count 381, Mean Platelet Volume 6.6, Neutrophils (%) (Auto) 68.1, Lymphocytes (% ) (Auto) 17.6L, Monocytes (%) (Auto) 9.0, Eosinophils (%) (Auto) 4.1H, Basophils (%) (Auto) 1.2, Sodium Level 139, Potassium Level 4.0, Chloride Level 104, Carbon Dioxide Level 24, Anion Gap 11, Blood Urea Nitrogen 28H, Creatinine 1.4H, Estimat Glomerular Filtration Rate , Glucose Level 101, Hemoglobin A1c 5.8 , Calcium Level 9.2 Current Medications Medications (Trade) Dose Ordered Sig/Nicole Route PRN Reason Start Time Stop Time Status Last Admin Dose Admin Acetaminophen (Tylenol) 650 mg Q4H PRN ORAL fever 03/09/18 02:00 04/08/18 01:59 Acetaminophen/ Hydrocodone Bitart ([place] 5/325) 1 tab Q4H PRN ORAL Moderate Pain (Pain Scale 4-6) 03/09/18 02:00 03/16/18 01:59 Albuterol/ Ipratropium (Albuterol/ Ipratropium) 3 ml Q4H PRN HHN Shortness of Breath 03/09/18 02:00 03/14/18 01:59 Dextrose (Dextrose 50%) 25 ml Q30M PRN IV Hypoglycemia 03/11/18 09:10 04/10/18 09:09 Dextrose (Dextrose 50%) 50 ml Q30M PRN IV Hypoglycemia 03/11/18 09:10 04/10/18 09:09 Heparin Sodium (Porcine) (Heparin 5000 units/ml) 5,000 units EVERY 12 HOURS SUBQ 03/09/18 09:00 04/08/18 08:59 03/11/18 21:15 Insulin Aspart (NovoLOG) BEFORE MEALS AND HS SUBQ 03/11/18 11:30 04/10/18 11:29 03/11/18 17:20 Morphine Sulfate (Morphine Sulfate) 2 mg Q4H PRN IVP Severe Pain (Pain Scale 7-10) 03/09/18 02:00 03/16/18 01:59 Ondansetron HCl (Zofran) 4 mg Q6H PRN IVP Nausea & Vomiting 03/09/18 02:00 04/08/18 01:59 Phenazopyridine HCl (Pyridium) 100 mg DAILY PRN ORAL dysuria 03/09/18 02:00 04/08/18 01:59 Polyethylene Glycol (Miralax) 17 gm DAILYPRN PRN ORAL Constipation 03/09/18 02:00 04/08/18 01:59 Tamsulosin HCl (Flomax) 0.4 mg BEDTIME ORAL 03/09/18 21:00 04/08/18 20:59 03/11/18 21:13 Temazepam (Restoril) 15 mg HSPRN PRN ORAL Insomnia 03/09/18 02:00 03/16/18 01:59 Trimethoprim/ Sulfamethoxazole (Bactrim-DS) 1 tab Q12HR ORAL 03/11/18 21:00 03/18/18 20:59 03/12/18 09:09 Aster Christensen NP Mar 12, 2018 09:13
[2018-03-12 12:00] VITALS: BP 118/55
--- NOTE | 2018-03-12 12:40 | General Progress Note ---
Progress Note Progress Note No events AFVSS PE- abd. soft, NT, ND - decreased balanitis/ cellulitis. Decreased TTP Ext WWP A/P- Penile cellulitis/ balanitis improving on abx Pt deferred circ for now. Available prn. Kolby Brady M.D. Mar 12, 2018 12:40
[2018-03-12 16:00] VITALS: BP 106/53
[2018-03-12 20:00] VITALS: BP_SYST 126; BP_SYST 131; BP_DIAS 60; BP_DIAS 82
[2018-03-12] MEDS: Tamsulosin 0.4mg cap ORAL SCH (21:21)
[2018-03-13] VITALS: BP 141/63
[2018-03-13 04:00] VITALS: BP 125/60
[2018-03-13] MEDS: NovoLOG Insulin Flexpen SUBQ SCH ×4 (06:18→20:52)
[2018-03-13 08:00] VITALS: BP 122/63
[2018-03-13] MEDS: Bactrim-DS 1 tab ORAL SCH ×2 (08:39→20:50)
[2018-03-13] MEDS: Memantine 5 MG TAB ORAL SCH ×2 (08:39→17:23)
[2018-03-13] MEDS: Heparin 5000 units/ml inj SUBQ SCH ×2 (08:40→20:53)
[2018-03-13 10:06] LABS: BASOPHILS % (AUTO) 1.8 % (0.0-2.0); EOSINOPHILS % (AUTO) 3.7 % (0.0-3.0); HEMATOCRIT 36.1 % (42.0-52.0); HEMOGLOBIN 12.4 G/DL (14.2-18.0); LYMPHOCYTES % (AUTO) 12.3 % (20.0-45.0); MEAN CORPUSCULAR VOLUME 78 FL (80-99); MONOCYTES % (AUTO) 7.5 % (1.0-10.0); NEUTROPHILS % (AUTO) 74.6 % (45.0-75.0); PLATELET COUNT 375 K/UL (150-450); RED BLOOD COUNT 4.63 M/UL (4.70-6.10); RED CELL DISTRIBUTION WIDTH 14.8 % (11.6-14.8); WHITE BLOOD COUNT 10.7 K/UL (4.8-10.8)
[2018-03-13 10:12] LABS: ANION GAP 11 mmol/L (5-15); BLOOD UREA NITROGEN 28 mg/dL (7-18); CALCIUM 8.8 MG/DL (8.5-10.1); CARBON DIOXIDE 23 MMOL/L (21-32); CHLORIDE 103 MMOL/L (98-107); CREATININE 1.5 MG/DL (0.55-1.30); POTASSIUM 4.2 MMOL/L (3.5-5.1); SODIUM 137 MMOL/L (136-145)
[2018-03-13 12:00] VITALS: BP 120/60
--- NOTE | 2018-03-13 13:07 | General Progress Note ---
Assessment/Plan Problem List: (1) COPD (chronic obstructive pulmonary disease) ICD Codes: J44.9 - Chronic obstructive pulmonary disease, unspecified SNOMED: 36850886 (2) Severe protein-calorie malnutrition ICD Codes: E43 - Unspecified severe protein-calorie malnutrition SNOMED: 828704197 (3) BPH (benign prostatic hyperplasia) ICD Codes: N40.0 - Benign prostatic hyperplasia without lower urinary tract symptoms SNOMED: 401659220 (4) Balanoposthitis ICD Codes: N47.6 - Balanoposthitis SNOMED: 60023284 (5) Phimosis ICD Codes: N47.1 - Phimosis SNOMED: 075575142 (6) Urinary retention ICD Codes: R33.9 - Retention of urine, unspecified SNOMED: 348578851 Status: stable, progressing Assessment/Plan ot pt diet wound care abx uro f/u dc if clear Subjective Constitutional: Reports: weakness Allergies: Coded Allergies: No Known Allergies (Unverified , 07/19/17) All Systems: reviewed and negative except above Subjective calm in bed eating, sl penile pain Objective Last 24 Hour Vital Signs Date Time Temp Pulse Resp B/P (MAP) Pulse Ox O2 Delivery O2 Flow Rate FiO2 03/13/18 12:24 96 18 Room Air 21 03/13/18 12:00 97.3 99 19 120/60 (80) 96 03/13/18 08:00 97.1 98 20 122/63 (82) 95 03/13/18 04:00 97.2 99 22 125/60 (81) 94 03/13/18 00:00 97.0 97 22 141/63 (89) 93 03/12/18 21:00 Room Air 03/12/18 20:11 91 18 Room Air 21 03/12/18 20:00 98.0 102 18 131/60 (83) 93 03/12/18 16:13 Room Air 03/12/18 16:00 97.9 103 18 106/53 (70) 95 Intake and Output 03/12/18 03/13/18 19:00 07:00 Intake Total 360 ml Output Total 2 ml Balance 360 ml -2 ml Intake Oral 360 ml Output Urine Total 2 ml # Voids 1 1 # Bowel Movements 1 1 Laboratory Tests 03/13/18 09:45: White Blood Count 10.7, Red Blood Count 4.63L, Hemoglobin 12.4L, Hematocrit 36.1L, Mean Corpuscular Volume 78L, Mean Corpuscular Hemoglobin 26.8L, Mean Corpuscular Hemoglobin Concent 34.4, Red Cell Distribution Width 14.8, Platelet Count 375, Mean Platelet Volume 6.3L, Neutrophils (%) (Auto) 74.6, Lymphocytes ( %) (Auto) 12.3L, Monocytes (%) (Auto) 7.5, Eosinophils (%) (Auto) 3.7H, Basophils (%) (Auto) 1.8, Sodium Level 137, Potassium Level 4.2, Chloride Level 103, Carbon Dioxide Level 23, Anion Gap 11, Blood Urea Nitrogen 28H, Creatinine 1.5H, Estimat Glomerular Filtration Rate , Glucose Level 133H, Calcium Level 8.8 Height (Feet): 5 Height (Inches): 11.00 Weight (Pounds): 145 General Appearance: lethargic EENT: normal ENT inspection Neck: normal alignment Cardiovascular: normal peripheral pulses, normal rate, regular rhythm Respiratory/Chest: chest wall non-tender, lungs clear, normal breath sounds Abdomen: normal bowel sounds, non tender, soft Extremities: normal inspection Edema: no edema noted Arm (L), no edema noted Arm (R), no edema noted Leg (L), no edema noted Leg (R), no edema noted Pedal (L), no edema noted Pedal (R), no edema noted Generalized Neurologic: responsive, motor weakness Samir Cramer DO Mar 13, 2018 13:07
--- NOTE | 2018-03-13 14:28 | Infectious Diseases Prog Note ---
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 stuarti (R Amp, ancef, Genta; I Cipro/levo, Zosyn; CEftriaxone reported as S- however Anthony 8 0 ?resistant), S. 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 Will continue to follow along with you. Discussed with RN. Subjective Allergies: Coded Allergies: No Known Allergies (Unverified , 07/19/17) Subjective afebrile no leukocytosis Cr stable penile cellulitis imrpoving Objective Vital Signs Last 24 Hour Vital Signs Date Time Temp Pulse Resp B/P (MAP) Pulse Ox O2 Delivery O2 Flow Rate FiO2 03/13/18 12:24 96 18 Room Air 21 03/13/18 12:00 97.3 99 19 120/60 (80) 96 03/13/18 09:00 Room Air 03/13/18 08:00 97.1 98 20 122/63 (82) 95 03/13/18 04:00 97.2 99 22 125/60 (81) 94 03/13/18 00:00 97.0 97 22 141/63 (89) 93 03/12/18 21:00 Room Air 03/12/18 20:11 91 18 Room Air 21 03/12/18 20:00 98.0 102 18 131/60 (83) 93 03/12/18 16:13 Room Air 03/12/18 16:00 97.9 103 18 106/53 (70) 95 Height (Feet): 5 Height (Inches): 11.00 Weight (Pounds): 145 Objective General Appearance: moderate distress HEENT: atraumatic, bilateral eye normal inspection, moist mucus membranes Neck: normal inspection, full range of motion, supple Respiratory: normal inspection, lungs clear Cardiovascular : regular rate, rhythm Gastrointestinal: other - Distended, tender over suprapubic region Genitourinary: no CVA tenderness, other - Phimosis,, irritated foreskin, urine appears trapped in foreskin Musculoskeletal: normal inspection, back normal, normal range of motion Neurologic: alert, responsive Skin: normal color Laboratory Tests Test 03/13/18 09:45 White Blood Count 10.7 K/UL (4.8-10.8) Red Blood Count 4.63 M/UL (4.70-6.10) L Hemoglobin 12.4 G/DL (14.2-18.0) L Hematocrit 36.1 % (42.0-52.0) L Mean Corpuscular Volume 78 FL (80-99) L Mean Corpuscular Hemoglobin 26.8 PG (27.0-31.0) L Mean Corpuscular Hemoglobin Concent 34.4 G/DL (32.0-36.0) Red Cell Distribution Width 14.8 % (11.6-14.8) Platelet Count 375 K/UL (150-450) Mean Platelet Volume 6.3 FL (6.5-10.1) L Neutrophils (%) (Auto) 74.6 % (45.0-75.0) Lymphocytes (%) (Auto) 12.3 % (20.0-45.0) L Monocytes (%) (Auto) 7.5 % (1.0-10.0) Eosinophils (%) (Auto) 3.7 % (0.0-3.0) H Basophils (%) (Auto) 1.8 % (0.0-2.0) Sodium Level 137 MMOL/L (136-145) Potassium Level 4.2 MMOL/L (3.5-5.1) Chloride Level 103 MMOL/L (98-107) Carbon Dioxide Level 23 MMOL/L (21-32) Anion Gap 11 mmol/L (5-15) Blood Urea Nitrogen 28 mg/dL (7-18) H Creatinine 1.5 MG/DL (0.55-1.30) H Estimat Glomerular Filtration Rate mL/min (>60) Glucose Level 133 MG/DL (74-106) H Calcium Level 8.8 MG/DL (8.5-10.1) Current Medications Medications (Trade) Dose Ordered Sig/Nicole Route PRN Reason Start Time Stop Time Status Last Admin Dose Admin Acetaminophen (Tylenol) 650 mg Q4H PRN ORAL fever 03/09/18 02:00 04/08/18 01:59 Acetaminophen/ Hydrocodone Bitart ([place] 5/325) 1 tab Q4H PRN ORAL Moderate Pain (Pain Scale 4-6) 03/09/18 02:00 03/16/18 01:59 Albuterol/ Ipratropium (Albuterol/ Ipratropium) 3 ml Q4H PRN HHN Shortness of Breath 03/09/18 02:00 03/14/18 01:59 Dextrose (Dextrose 50%) 25 ml Q30M PRN IV Hypoglycemia 03/11/18 09:10 04/10/18 09:09 Dextrose (Dextrose 50%) 50 ml Q30M PRN IV Hypoglycemia 03/11/18 09:10 04/10/18 09:09 Heparin Sodium (Porcine) (Heparin 5000 units/ml) 5,000 units EVERY 12 HOURS SUBQ 03/09/18 09:00 04/08/18 08:59 03/13/18 08:40 Insulin Aspart (NovoLOG) BEFORE MEALS AND HS SUBQ 03/11/18 11:30 04/10/18 11:29 03/13/18 06:18 Memantine (Namenda) 5 mg BID ORAL 03/13/18 09:00 04/12/18 08:59 03/13/18 08:39 Morphine Sulfate (Morphine Sulfate) 2 mg Q4H PRN IVP Severe Pain (Pain Scale 7-10) 03/09/18 02:00 03/16/18 01:59 Ondansetron HCl (Zofran) 4 mg Q6H PRN IVP Nausea & Vomiting 03/09/18 02:00 04/08/18 01:59 Phenazopyridine HCl (Pyridium) 100 mg DAILY PRN ORAL dysuria 03/09/18 02:00 04/08/18 01:59 Polyethylene Glycol (Miralax) 17 gm DAILYPRN PRN ORAL Constipation 03/09/18 02:00 04/08/18 01:59 Tamsulosin HCl (Flomax) 0.4 mg BEDTIME ORAL 03/09/18 21:00 04/08/18 20:59 03/12/18 21:21 Temazepam (Restoril) 15 mg HSPRN PRN ORAL Insomnia 03/09/18 02:00 03/16/18 01:59 Trimethoprim/ Sulfamethoxazole (Bactrim-DS) 1 tab Q12HR ORAL 03/11/18 21:00 03/18/18 20:59 03/13/18 08:39 Radha Barron M.D. Mar 13, 2018 14:28
--- NOTE | 2018-03-13 14:58 | Pulmonology Progress Note ---
Assessment/Plan Problems: (1) Urinary retention (2) COPD (chronic obstructive pulmonary disease) (3) Balanoposthitis (4) Severe protein-calorie malnutrition (5) BPH (benign prostatic hyperplasia) Assessment/Plan symptomatic treatment check cultures no new complains iv fluids evaluation appreciated renal studies dvt prophylaxis dc planning Subjective ROS Limited/Unobtainable: No Constitutional: Reports: no symptoms HEENT: Repors: no symptoms Respiratory: Reports: no symptoms Cardiovascular: Reports: no symptoms Allergies: Coded Allergies: No Known Allergies (Unverified , 07/19/17) Objective Last 24 Hour Vital Signs Date Time Temp Pulse Resp B/P (MAP) Pulse Ox O2 Delivery O2 Flow Rate FiO2 03/13/18 12:24 96 18 Room Air 21 03/13/18 12:00 97.3 99 19 120/60 (80) 96 03/13/18 09:00 Room Air 03/13/18 08:00 97.1 98 20 122/63 (82) 95 03/13/18 04:00 97.2 99 22 125/60 (81) 94 03/13/18 00:00 97.0 97 22 141/63 (89) 93 03/12/18 21:00 Room Air 03/12/18 20:11 91 18 Room Air 21 03/12/18 20:00 98.0 102 18 131/60 (83) 93 03/12/18 16:13 Room Air 03/12/18 16:00 97.9 103 18 106/53 (70) 95 Intake and Output 03/12/18 03/13/18 19:00 07:00 Intake Total 360 ml Output Total 2 ml Balance 360 ml -2 ml Intake Oral 360 ml Output Urine Total 2 ml # Voids 1 1 # Bowel Movements 1 1 General Appearance: WD/WN HEENT: normocephalic, anicteric Respiratory/Chest: chest wall non-tender, lungs clear Cardiovascular: normal peripheral pulses, normal rate Abdomen: normal bowel sounds, no organomegaly Genitourinary: normal external genitalia Skin: no rash Laboratory Tests 03/13/18 09:45: White Blood Count 10.7, Red Blood Count 4.63L, Hemoglobin 12.4L, Hematocrit 36.1L, Mean Corpuscular Volume 78L, Mean Corpuscular Hemoglobin 26.8L, Mean Corpuscular Hemoglobin Concent 34.4, Red Cell Distribution Width 14.8, Platelet Count 375, Mean Platelet Volume 6.3L, Neutrophils (%) (Auto) 74.6, Lymphocytes ( %) (Auto) 12.3L, Monocytes (%) (Auto) 7.5, Eosinophils (%) (Auto) 3.7H, Basophils (%) (Auto) 1.8, Sodium Level 137, Potassium Level 4.2, Chloride Level 103, Carbon Dioxide Level 23, Anion Gap 11, Blood Urea Nitrogen 28H, Creatinine 1.5H, Estimat Glomerular Filtration Rate , Glucose Level 133H, Calcium Level 8.8 Current Medications Medications (Trade) Dose Ordered Sig/Nicole Route PRN Reason Start Time Stop Time Status Last Admin Dose Admin Acetaminophen (Tylenol) 650 mg Q4H PRN ORAL fever 03/09/18 02:00 04/08/18 01:59 Acetaminophen/ Hydrocodone Bitart ([place] 5/325) 1 tab Q4H PRN ORAL Moderate Pain (Pain Scale 4-6) 03/09/18 02:00 03/16/18 01:59 Albuterol/ Ipratropium (Albuterol/ Ipratropium) 3 ml Q4H PRN HHN Shortness of Breath 03/09/18 02:00 03/14/18 01:59 Dextrose (Dextrose 50%) 25 ml Q30M PRN IV Hypoglycemia 03/11/18 09:10 04/10/18 09:09 Dextrose (Dextrose 50%) 50 ml Q30M PRN IV Hypoglycemia 03/11/18 09:10 04/10/18 09:09 Heparin Sodium (Porcine) (Heparin 5000 units/ml) 5,000 units EVERY 12 HOURS SUBQ 03/09/18 09:00 04/08/18 08:59 03/13/18 08:40 Insulin Aspart (NovoLOG) BEFORE MEALS AND HS SUBQ 03/11/18 11:30 04/10/18 11:29 03/13/18 06:18 Memantine (Namenda) 5 mg BID ORAL 03/13/18 09:00 04/12/18 08:59 03/13/18 08:39 Morphine Sulfate (Morphine Sulfate) 2 mg Q4H PRN IVP Severe Pain (Pain Scale 7-10) 03/09/18 02:00 03/16/18 01:59 Ondansetron HCl (Zofran) 4 mg Q6H PRN IVP Nausea & Vomiting 03/09/18 02:00 04/08/18 01:59 Phenazopyridine HCl (Pyridium) 100 mg DAILY PRN ORAL dysuria 03/09/18 02:00 04/08/18 01:59 Polyethylene Glycol (Miralax) 17 gm DAILYPRN PRN ORAL Constipation 03/09/18 02:00 04/08/18 01:59 Tamsulosin HCl (Flomax) 0.4 mg BEDTIME ORAL 03/09/18 21:00 04/08/18 20:59 03/12/18 21:21 Temazepam (Restoril) 15 mg HSPRN PRN ORAL Insomnia 03/09/18 02:00 03/16/18 01:59 Trimethoprim/ Sulfamethoxazole (Bactrim-DS) 1 tab Q12HR ORAL 03/11/18 21:00 03/18/18 20:59 03/13/18 08:39 Margie Britton MD Mar 13, 2018 14:58
--- NOTE | 2018-03-13 15:05 | Nephrology Progress Note ---
Assessment/Plan Assessment 1. Acute renal failure. 2. History of chronic kidney disease. 3. Possible diabetic nephropathy versus hypertensive nephrosclerosis. 4. Urinary tract infection. 5. Phimosis with cellulitis of penile area. Plan plan to continue current meds monitoring renal function closely avoid NSAID replace electrolyte as need it Subjective Constitutional: Reports: no symptoms HEENT: Reports: no symptoms Genitourinary: Reports: no symptoms Neurologic/Psychiatric: Reports: no symptoms Objective Objective Last 24 Hour Vital Signs Date Time Temp Pulse Resp B/P (MAP) Pulse Ox O2 Delivery O2 Flow Rate FiO2 03/13/18 12:24 96 18 Room Air 21 03/13/18 12:00 97.3 99 19 120/60 (80) 96 03/13/18 09:00 Room Air 03/13/18 08:00 97.1 98 20 122/63 (82) 95 03/13/18 04:00 97.2 99 22 125/60 (81) 94 03/13/18 00:00 97.0 97 22 141/63 (89) 93 03/12/18 21:00 Room Air 03/12/18 20:11 91 18 Room Air 21 03/12/18 20:00 98.0 102 18 131/60 (83) 93 03/12/18 16:13 Room Air 03/12/18 16:00 97.9 103 18 106/53 (70) 95 Intake and Output 03/12/18 03/13/18 19:00 07:00 Intake Total 360 ml Output Total 2 ml Balance 360 ml -2 ml Intake Oral 360 ml Output Urine Total 2 ml # Voids 1 1 # Bowel Movements 1 1 Laboratory Tests 03/13/18 09:45: White Blood Count 10.7, Red Blood Count 4.63L, Hemoglobin 12.4L, Hematocrit 36.1L, Mean Corpuscular Volume 78L, Mean Corpuscular Hemoglobin 26.8L, Mean Corpuscular Hemoglobin Concent 34.4, Red Cell Distribution Width 14.8, Platelet Count 375, Mean Platelet Volume 6.3L, Neutrophils (%) (Auto) 74.6, Lymphocytes ( %) (Auto) 12.3L, Monocytes (%) (Auto) 7.5, Eosinophils (%) (Auto) 3.7H, Basophils (%) (Auto) 1.8, Sodium Level 137, Potassium Level 4.2, Chloride Level 103, Carbon Dioxide Level 23, Anion Gap 11, Blood Urea Nitrogen 28H, Creatinine 1.5H, Estimat Glomerular Filtration Rate , Glucose Level 133H, Calcium Level 8.8 Height (Feet): 5 Height (Inches): 11.00 Weight (Pounds): 145 Objective HEAD AND NECK: No JVP. No LAD. No thyromegaly. Extraocular movements intact. Pupils are reactive to light and accommodation. LUNGS: Clear to auscultation. CARDIAC: Regular rate and rhythm. S1, S2. No murmur. No rub. ABDOMEN: Soft, nontender, and nondistended. EXTREMITIES: No edema. No clubbing. No cyanosis. GENITOURINARY: The patient is found to have an irritation, phimosis, and swelling and redness around penal area. Mesha Day MD Mar 13, 2018 15:05
[2018-03-13] MEDS ORDERED: ACETAMINOPHEN325 M1 ORAL (15:21)
[2018-03-13] MEDS ORDERED: HEPARIN SO5000 UNIT2 SUBQ (15:26)
[2018-03-13] MEDS ORDERED: NORCO 5-325 TA1 EACH ORAL (15:27)
[2018-03-13] MEDS ORDERED: NOVOLOG100 UNIT/4 SQ (15:29)
[2018-03-13] MEDS ORDERED: IPRATROPIU0.2 MG/1 M HHN (15:29)
[2018-03-13] MEDS ORDERED: NAMENDA5 MG ORAL (15:30)
[2018-03-13] MEDS ORDERED: PHENAZOPYRIDIN100 MG ORAL (15:32)
[2018-03-13] MEDS ORDERED: POLYETHYLENE GL17 GM ORAL (15:35)
[2018-03-13] MEDS ORDERED: RESTORIL15 MG ORAL (15:36)
[2018-03-13] MEDS ORDERED: BACTRIM-DS1 EA ORAL (15:37)
[2018-03-13 16:00] VITALS: BP 118/66
--- NOTE | 2018-03-13 16:45 | Consultation ---
DATE OF CONSULTATION: 03/13/2018 CONSULTING PHYSICIAN: Lea Dodd M.D. HISTORY OF PRESENT ILLNESS: This is a 77-year-old male patient with urinary retention. The patient is very confused, disorganized thought process. Cognition has declined below baseline secondary to his medical illness. That is why his attending has requested daily psychiatric consultation at this time. MEDICAL PROBLEMS: . ALLERGIES: No known drug allergies. PSYCHOTROPIC MEDICATIONS: On admission, the patient . SUBSTANCE ABUSE HISTORY: Denies. PAIN ASSESSMENT: 0/10. DEVELOPMENTAL PROBLEMS: Denies. SOCIAL HISTORY: Lives in the facility. Financially supported by [employer] and Medicare. PSYCHIATRIC HISTORY: The patient reports poor psychiatric features. STRENGTHS: He is motivated to get better and has a place to live. WEAKNESSES AND LIABILITIES: He is impulsive and minimal support system. MENTAL STATUS EXAMINATION: This is a 77-year-old male. Appearance is disheveled. Attitude, irritable and agitated. Affect, guarded and restricted. Intellect poor. Mood, depressed and anxious. Motor activity, psychomotor agitation. Attention span is poor. Orientation x2. Speech is pressured. Thought process, disorganized and illogical. Thought content, auditory hallucinations and paranoid delusions. Insight and judgment are poor. DIAGNOSIS: Major depression with psychotic features, rule out dementia with psychosis. PLAN: Treat him with Namenda 5 mg twice a day to prevent further decline in cognition. Provided 20 minutes of cognitive behavioral therapy to help identify his automatic negative thoughts and to help with negative thoughts to more positive thoughts to reduce depression, anxiety, and suicidality. A 20 minutes of cognitive behavioral therapy provided. Chart reviewed and discussed with staff. . Lea Dodd M.D. : CHERELLE JOB#: [id number] CC:
[2018-03-13 20:00] VITALS: BP 121/74
[2018-03-13] MEDS: Tamsulosin 0.4mg cap ORAL SCH (20:50)
[2018-03-14] VITALS: BP 148/74
[2018-03-14 04:00] VITALS: BP 135/65
[2018-03-14] MEDS: NovoLOG Insulin Flexpen SUBQ SCH ×4 (06:30→21:00)
[2018-03-14 08:00] VITALS: BP 120/50
--- NOTE | 2018-03-14 08:55 | Nephrology Progress Note ---
Assessment/Plan Assessment 1. Acute renal failure. 2. History of chronic kidney disease. 3. Possible diabetic nephropathy versus hypertensive nephrosclerosis. 4. Urinary tract infection. 5. Phimosis with cellulitis of penile area. Plan plan to continue current meds monitoring renal function closely avoid NSAID replace electrolyte as need it Subjective Constitutional: Reports: no symptoms HEENT: Reports: no symptoms Genitourinary: Reports: no symptoms Neurologic/Psychiatric: Reports: no symptoms Subjective alert and awake denies any problem Objective Objective Last 24 Hour Vital Signs Date Time Temp Pulse Resp B/P (MAP) Pulse Ox O2 Delivery O2 Flow Rate FiO2 03/14/18 04:00 97.5 100 19 135/65 (88) 93 03/14/18 00:00 97.8 100 19 148/74 (98) 93 03/13/18 21:35 95 18 Room Air 21 03/13/18 21:00 Room Air 03/13/18 20:00 98.5 95 20 121/74 (90) 95 03/13/18 16:00 97.4 96 20 118/66 (83) 97 03/13/18 12:24 96 18 Room Air 21 03/13/18 12:00 97.3 99 19 120/60 (80) 96 03/13/18 09:00 Room Air Intake and Output 03/13/18 03/14/18 19:00 07:00 Intake Total 1620 ml 240 ml Balance 1620 ml 240 ml Intake Oral 1620 ml 240 ml # Voids 6 2 # Bowel Movements 2 1 Laboratory Tests 03/13/18 09:45: White Blood Count 10.7, Red Blood Count 4.63L, Hemoglobin 12.4L, Hematocrit 36.1L, Mean Corpuscular Volume 78L, Mean Corpuscular Hemoglobin 26.8L, Mean Corpuscular Hemoglobin Concent 34.4, Red Cell Distribution Width 14.8, Platelet Count 375, Mean Platelet Volume 6.3L, Neutrophils (%) (Auto) 74.6, Lymphocytes ( %) (Auto) 12.3L, Monocytes (%) (Auto) 7.5, Eosinophils (%) (Auto) 3.7H, Basophils (%) (Auto) 1.8, Sodium Level 137, Potassium Level 4.2, Chloride Level 103, Carbon Dioxide Level 23, Anion Gap 11, Blood Urea Nitrogen 28H, Creatinine 1.5H, Estimat Glomerular Filtration Rate , Glucose Level 133H, Calcium Level 8.8 Height (Feet): 5 Height (Inches): 11.00 Weight (Pounds): 145 Objective HEAD AND NECK: No JVP. No LAD. No thyromegaly. Extraocular movements intact. Pupils are reactive to light and accommodation. LUNGS: Clear to auscultation. CARDIAC: Regular rate and rhythm. S1, S2. No murmur. No rub. ABDOMEN: Soft, nontender, and nondistended. EXTREMITIES: No edema. No clubbing. No cyanosis. GENITOURINARY: The patient is found to have an irritation, phimosis, and swelling and redness around penal area. Mesha Day MD Mar 14, 2018 08:55
[2018-03-14] MEDS: Memantine 5 MG TAB ORAL SCH ×2 (08:58→17:05)
[2018-03-14] MEDS: Bactrim-DS 1 tab ORAL SCH ×2 (08:59→21:25)
[2018-03-14] MEDS: Heparin 5000 units/ml inj SUBQ SCH ×2 (09:00→21:27)
[2018-03-14 12:00] VITALS: BP 143/57
--- NOTE | 2018-03-14 12:31 | General Progress Note ---
Assessment/Plan Problem List: (1) COPD (chronic obstructive pulmonary disease) ICD Codes: J44.9 - Chronic obstructive pulmonary disease, unspecified SNOMED: 24704045 (2) Severe protein-calorie malnutrition ICD Codes: E43 - Unspecified severe protein-calorie malnutrition SNOMED: 563106433 (3) BPH (benign prostatic hyperplasia) ICD Codes: N40.0 - Benign prostatic hyperplasia without lower urinary tract symptoms SNOMED: 609786999 (4) Balanoposthitis ICD Codes: N47.6 - Balanoposthitis SNOMED: 31573259 (5) Phimosis ICD Codes: N47.1 - Phimosis SNOMED: 417496016 (6) Urinary retention ICD Codes: R33.9 - Retention of urine, unspecified SNOMED: 117895403 Status: stable, progressing Assessment/Plan ot pt diet wound care abx uro f/u cbc bmp am dc if clear Subjective Constitutional: Reports: weakness Allergies: Coded Allergies: No Known Allergies (Unverified , 07/19/17) All Systems: reviewed and negative except above Subjective calm in bed eating, sl penile pain Objective Last 24 Hour Vital Signs Date Time Temp Pulse Resp B/P (MAP) Pulse Ox O2 Delivery O2 Flow Rate FiO2 03/14/18 09:10 90 18 Room Air 21 03/14/18 09:00 Room Air 03/14/18 08:00 97.4 91 18 120/50 (73) 95 03/14/18 04:00 97.5 100 19 135/65 (88) 93 03/14/18 00:00 97.8 100 19 148/74 (98) 93 03/13/18 21:35 95 18 Room Air 21 03/13/18 21:00 Room Air 03/13/18 20:00 98.5 95 20 121/74 (90) 95 03/13/18 16:00 97.4 96 20 118/66 (83) 97 Intake and Output 03/13/18 03/14/18 19:00 07:00 Intake Total 1620 ml 240 ml Balance 1620 ml 240 ml Intake Oral 1620 ml 240 ml # Voids 6 2 # Bowel Movements 2 1 Height (Feet): 5 Height (Inches): 11.00 Weight (Pounds): 145 General Appearance: lethargic EENT: normal ENT inspection Neck: normal alignment Cardiovascular: normal peripheral pulses, normal rate, regular rhythm Respiratory/Chest: chest wall non-tender, lungs clear, normal breath sounds Abdomen: normal bowel sounds, non tender, soft Extremities: normal inspection Edema: no edema noted Arm (L), no edema noted Arm (R), no edema noted Leg (L), no edema noted Leg (R), no edema noted Pedal (L), no edema noted Pedal (R), no edema noted Generalized Neurologic: motor weakness Skin: normal pigmentation, warm/dry Samir Cramer DO Mar 14, 2018 12:31
--- NOTE | 2018-03-14 13:50 | Pulmonology Progress Note ---
Assessment/Plan Problems: (1) Urinary retention (2) COPD (chronic obstructive pulmonary disease) (3) Balanoposthitis (4) Severe protein-calorie malnutrition (5) BPH (benign prostatic hyperplasia) Assessment/Plan symptomatic treatment check cultures no new complains iv fluids evaluation appreciated renal studies dvt prophylaxis dc planning Subjective ROS Limited/Unobtainable: No Interval Events: doing ok Allergies: Coded Allergies: No Known Allergies (Unverified , 07/19/17) Objective Last 24 Hour Vital Signs Date Time Temp Pulse Resp B/P (MAP) Pulse Ox O2 Delivery O2 Flow Rate FiO2 03/14/18 12:00 96.4 89 20 143/57 (85) 96 03/14/18 09:10 90 18 Room Air 21 03/14/18 09:00 Room Air 03/14/18 08:00 97.4 91 18 120/50 (73) 95 03/14/18 04:00 97.5 100 19 135/65 (88) 93 03/14/18 00:00 97.8 100 19 148/74 (98) 93 03/13/18 21:35 95 18 Room Air 21 03/13/18 21:00 Room Air 03/13/18 20:00 98.5 95 20 121/74 (90) 95 03/13/18 16:00 97.4 96 20 118/66 (83) 97 Intake and Output 03/13/18 03/14/18 19:00 07:00 Intake Total 1620 ml 240 ml Balance 1620 ml 240 ml Intake Oral 1620 ml 240 ml # Voids 6 2 # Bowel Movements 2 1 Objective General Appearance: WD/WN HEENT: normocephalic, anicteric Respiratory/Chest: chest wall non-tender, lungs clear Cardiovascular: normal peripheral pulses, normal rate Abdomen: normal bowel sounds, no organomegaly Genitourinary: normal external genitalia Skin: no rash Current Medications Medications (Trade) Dose Ordered Sig/Nicole Route PRN Reason Start Time Stop Time Status Last Admin Dose Admin Acetaminophen (Tylenol) 650 mg Q4H PRN ORAL fever 03/09/18 02:00 04/08/18 01:59 Acetaminophen/ Hydrocodone Bitart ([place] 5/325) 1 tab Q4H PRN ORAL Moderate Pain (Pain Scale 4-6) 03/09/18 02:00 03/16/18 01:59 Dextrose (Dextrose 50%) 25 ml Q30M PRN IV Hypoglycemia 03/11/18 09:10 04/10/18 09:09 Dextrose (Dextrose 50%) 50 ml Q30M PRN IV Hypoglycemia 03/11/18 09:10 04/10/18 09:09 Heparin Sodium (Porcine) (Heparin 5000 units/ml) 5,000 units EVERY 12 HOURS SUBQ 03/09/18 09:00 04/08/18 08:59 03/14/18 09:00 Insulin Aspart (NovoLOG) BEFORE MEALS AND HS SUBQ 03/11/18 11:30 04/10/18 11:29 03/13/18 20:52 Memantine (Namenda) 5 mg BID ORAL 03/13/18 09:00 04/12/18 08:59 03/14/18 08:58 Morphine Sulfate (Morphine Sulfate) 2 mg Q4H PRN IVP Severe Pain (Pain Scale 7-10) 03/09/18 02:00 03/16/18 01:59 Ondansetron HCl (Zofran) 4 mg Q6H PRN IVP Nausea & Vomiting 03/09/18 02:00 04/08/18 01:59 Phenazopyridine HCl (Pyridium) 100 mg DAILY PRN ORAL dysuria 03/09/18 02:00 04/08/18 01:59 Polyethylene Glycol (Miralax) 17 gm DAILYPRN PRN ORAL Constipation 03/09/18 02:00 04/08/18 01:59 Tamsulosin HCl (Flomax) 0.4 mg BEDTIME ORAL 03/09/18 21:00 04/08/18 20:59 03/13/18 20:50 Temazepam (Restoril) 15 mg HSPRN PRN ORAL Insomnia 03/09/18 02:00 03/16/18 01:59 Trimethoprim/ Sulfamethoxazole (Bactrim-DS) 1 tab Q12HR ORAL 03/11/18 21:00 03/18/18 20:59 03/14/18 08:59 Margie Britton MD Mar 14, 2018 13:50
--- NOTE | 2018-03-14 15:05 | Infectious Diseases Prog Note ---
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 stuarti (R Amp, ancef, Genta; I Cipro/levo, Zosyn; CEftriaxone reported as S- however Anthony 8 0 ?resistant), S. Meropenem - 07/2017: MDR Proteus mirabilis BPH COPD DM2 cachexia chronic left shoulder dislocation Dementia residential resident VRE/MRSA colonized Plan: -Continue Bactrim abx d#10/18 for both UTI and cellulitis -monitor Cr and K -ok to discharge on this regimen -03/11 SP Cefepime #3, IV Vancomycin #3 -03/08 SP Ceftriaxone x1 -10/27 SP Bactrim#3 -10/24 SP Meropenem #4 -10/22 SP IV Vancomycin # 2 -10/21 Sp one time dose of AMikacin and Cefepime -10/02 SP Ertapenem #5 -09/27 SP Meropenem #2 -09/24 SP Keflex and Ertapenem x1 -07/2017 SP Ertapenem #5 -f/u cx -Monitor CBC/CMP, temperatures -Uro f/u- refusing circumcision at this point -Sx f/u Thank you for this consultation. Will continue to follow along with you. Discussed with RN. Subjective Allergies: Coded Allergies: No Known Allergies (Unverified , 07/19/17) Subjective afebrile no leukocytosis Cr stable penile cellulitis imrpoving Objective Vital Signs Last 24 Hour Vital Signs Date Time Temp Pulse Resp B/P (MAP) Pulse Ox O2 Delivery O2 Flow Rate FiO2 03/14/18 12:00 96.4 89 20 143/57 (85) 96 03/14/18 09:10 90 18 Room Air 21 03/14/18 09:00 Room Air 03/14/18 08:00 97.4 91 18 120/50 (73) 95 03/14/18 04:00 97.5 100 19 135/65 (88) 93 03/14/18 00:00 97.8 100 19 148/74 (98) 93 03/13/18 21:35 95 18 Room Air 21 03/13/18 21:00 Room Air 03/13/18 20:00 98.5 95 20 121/74 (90) 95 03/13/18 16:00 97.4 96 20 118/66 (83) 97 Height (Feet): 5 Height (Inches): 11.00 Weight (Pounds): 145 Objective General Appearance: moderate distress HEENT: atraumatic, bilateral eye normal inspection, moist mucus membranes Neck: normal inspection, full range of motion, supple Respiratory: normal inspection, lungs clear Cardiovascular : regular rate, rhythm Gastrointestinal: other - Distended, tender over suprapubic region Genitourinary: no CVA tenderness, other - Phimosis,, irritated foreskin, urine appears trapped in foreskin Musculoskeletal: normal inspection, back normal, normal range of motion Neurologic: alert, responsive Skin: normal color Current Medications Medications (Trade) Dose Ordered Sig/Nicole Route PRN Reason Start Time Stop Time Status Last Admin Dose Admin Acetaminophen (Tylenol) 650 mg Q4H PRN ORAL fever 03/09/18 02:00 04/08/18 01:59 Acetaminophen/ Hydrocodone Bitart ([place] 5/325) 1 tab Q4H PRN ORAL Moderate Pain (Pain Scale 4-6) 03/09/18 02:00 03/16/18 01:59 Dextrose (Dextrose 50%) 25 ml Q30M PRN IV Hypoglycemia 03/11/18 09:10 04/10/18 09:09 Dextrose (Dextrose 50%) 50 ml Q30M PRN IV Hypoglycemia 03/11/18 09:10 04/10/18 09:09 Heparin Sodium (Porcine) (Heparin 5000 units/ml) 5,000 units EVERY 12 HOURS SUBQ 03/09/18 09:00 04/08/18 08:59 03/14/18 09:00 Insulin Aspart (NovoLOG) BEFORE MEALS AND HS SUBQ 03/11/18 11:30 04/10/18 11:29 03/13/18 20:52 Memantine (Namenda) 5 mg BID ORAL 03/13/18 09:00 1/2/19 08:59 03/14/18 08:58 Morphine Sulfate (Morphine Sulfate) 2 mg Q4H PRN IVP Severe Pain (Pain Scale 7-10) 03/09/18 02:00 03/16/18 01:59 Ondansetron HCl (Zofran) 4 mg Q6H PRN IVP Nausea & Vomiting 03/09/18 02:00 04/08/18 01:59 Phenazopyridine HCl (Pyridium) 100 mg DAILY PRN ORAL dysuria 03/09/18 02:00 04/08/18 01:59 Polyethylene Glycol (Miralax) 17 gm DAILYPRN PRN ORAL Constipation 03/09/18 02:00 04/08/18 01:59 Tamsulosin HCl (Flomax) 0.4 mg BEDTIME ORAL 03/09/18 21:00 04/08/18 20:59 03/13/18 20:50 Temazepam (Restoril) 15 mg HSPRN PRN ORAL Insomnia 03/09/18 02:00 03/16/18 01:59 Trimethoprim/ Sulfamethoxazole (Bactrim-DS) 1 tab Q12HR ORAL 03/11/18 21:00 03/18/18 20:59 03/14/18 08:59 Radha Barron M.D. Mar 14, 2018 15:05
[2018-03-14 16:00] VITALS: BP 119/58
[2018-03-14 20:00] VITALS: BP 140/68
[2018-03-14] MEDS: Tamsulosin 0.4mg cap ORAL SCH (21:25)
[2018-03-15] VITALS: BP 144/74
--- NOTE | 2018-03-15 01:30 | Progress Note ---
DATE: 03/14/2018 SUBJECTIVE: This is a 77-year-old male patient with urinary retention. This patient continues to have some confusion, disorganized thought process, and mood lability, worsened by stress of his medical illness. He is irritable and agitated. His cognition has declined further below his baseline, worsened by the stress of his medical illness. MENTAL STATUS EXAMINATION: The patient is a 77-year-old male. Appearance is disheveled. Attitude, irritable and agitated. Affect, guarded and restricted. Intellect poor. Mood, depressed and anxious. Motor activity, psychomotor agitation. Attention span is poor. Orientation x2. Speech is pressured. Thought process, disorganized and illogical. Thought content, no auditory hallucinations or paranoid delusions. Insight and judgment are poor. DIAGNOSIS: Major depression with psychotic features, rule out pseudodementia. PLAN: Treat him with Namenda 5 mg twice a day to prevent further decline in cognition. Provided 20 minutes of cognitive behavioral therapy to help identify his automatic negative thoughts and to help him convert the negative thoughts to more positive thoughts to reduce depression, anxiety, and suicidality. Chart reviewed and discussed with staff. Seen and assessed in his room. Lea Dodd M.D. DR: CHARLOTTE JOB#: [id number] CC:
[2018-03-15 04:00] VITALS: BP 106/61
[2018-03-15] MEDS: NovoLOG Insulin Flexpen SUBQ SCH ×4 (05:50→21:00)
[2018-03-15 08:00] VITALS: BP 124/69
[2018-03-15] MEDS: Bactrim-DS 1 tab ORAL SCH ×2 (08:34→21:17)
[2018-03-15] MEDS: Memantine 5 MG TAB ORAL SCH ×2 (08:36→17:37)
[2018-03-15] MEDS: Heparin 5000 units/ml inj SUBQ SCH ×2 (08:38→21:18)
[2018-03-15 08:49] LABS: BASOPHILS % (AUTO) 1.7 % (0.0-2.0); EOSINOPHILS % (AUTO) 8.4 % (0.0-3.0); HEMATOCRIT 35.4 % (42.0-52.0); HEMOGLOBIN 11.6 G/DL (14.2-18.0); LYMPHOCYTES % (AUTO) 16.9 % (20.0-45.0); MEAN CORPUSCULAR VOLUME 79 FL (80-99); MONOCYTES % (AUTO) 9.2 % (1.0-10.0); NEUTROPHILS % (AUTO) 63.9 % (45.0-75.0); PLATELET COUNT 396 K/UL (150-450); RED CELL DISTRIBUTION WIDTH 14.6 % (11.6-14.8); WHITE BLOOD COUNT 7.4 K/UL (4.8-10.8)
[2018-03-15 09:30] LABS: ANION GAP 7 mmol/L (5-15); BLOOD UREA NITROGEN 26 mg/dL (7-18); CALCIUM 9.2 MG/DL (8.5-10.1); CARBON DIOXIDE 26 MMOL/L (21-32); CHLORIDE 103 MMOL/L (98-107); CREATININE 1.7 MG/DL (0.55-1.30); POTASSIUM 4.4 MMOL/L (3.5-5.1); SODIUM 136 MMOL/L (136-145)
[2018-03-15 12:00] VITALS: BP 122/62
--- NOTE | 2018-03-15 12:34 | Pulmonology Progress Note ---
Assessment/Plan Problems: (1) Urinary retention (2) COPD (chronic obstructive pulmonary disease) (3) Balanoposthitis (4) Severe protein-calorie malnutrition (5) BPH (benign prostatic hyperplasia) Assessment/Plan symptomatic treatment check cultures no new complains iv fluids evaluation appreciated renal studies dvt prophylaxis dc planning Subjective ROS Limited/Unobtainable: No Allergies: Coded Allergies: No Known Allergies (Unverified , 07/19/17) Objective Last 24 Hour Vital Signs Date Time Temp Pulse Resp B/P (MAP) Pulse Ox O2 Delivery O2 Flow Rate FiO2 03/15/18 12:00 94.5 96 18 122/62 (82) 96 03/15/18 09:00 Room Air 03/15/18 08:00 96.2 63 18 124/69 (87) 97 03/15/18 04:00 98.1 101 18 106/61 (76) 94 03/15/18 00:00 97.7 100 18 144/74 (97) 94 03/14/18 21:00 Room Air 03/14/18 20:00 98.0 95 19 140/68 (92) 94 03/14/18 19:51 96 16 Room Air 21 03/14/18 16:00 97.6 93 19 119/58 (78) 96 Intake and Output 03/14/18 03/15/18 19:00 07:00 Intake Total 864 ml 480 ml Balance 864 ml 480 ml Intake Oral 864 ml 480 ml # Voids 4 # Bowel Movements 2 1 Objective General Appearance: WD/WN HEENT: normocephalic, anicteric Respiratory/Chest: chest wall non-tender, lungs clear Cardiovascular: normal peripheral pulses, normal rate Abdomen: normal bowel sounds, no organomegaly Genitourinary: normal external genitalia Skin: no rash Laboratory Tests 03/15/18 08:35: White Blood Count 7.4, Red Blood Count 4.50L, Hemoglobin 11.6L, Hematocrit 35.4L , Mean Corpuscular Volume 79L, Mean Corpuscular Hemoglobin 25.8L, Mean Corpuscular Hemoglobin Concent 32.8, Red Cell Distribution Width 14.6, Platelet Count 396, Mean Platelet Volume 6.7, Neutrophils (%) (Auto) 63.9, Lymphocytes (% ) (Auto) 16.9L, Monocytes (%) (Auto) 9.2, Eosinophils (%) (Auto) 8.4H, Basophils (%) (Auto) 1.7, Sodium Level 136, Potassium Level 4.4, Chloride Level 103, Carbon Dioxide Level 26, Anion Gap 7, Blood Urea Nitrogen 26H, Creatinine 1.7H, Estimat Glomerular Filtration Rate , Glucose Level 103, Calcium Level 9.2 Current Medications Medications (Trade) Dose Ordered Sig/Nicole Route PRN Reason Start Time Stop Time Status Last Admin Dose Admin Acetaminophen (Tylenol) 650 mg Q4H PRN ORAL fever 03/09/18 02:00 04/08/18 01:59 Acetaminophen/ Hydrocodone Bitart ([place] 5/325) 1 tab Q4H PRN ORAL Moderate Pain (Pain Scale 4-6) 03/09/18 02:00 03/16/18 01:59 Dextrose (Dextrose 50%) 25 ml Q30M PRN IV Hypoglycemia 03/11/18 09:10 04/10/18 09:09 Dextrose (Dextrose 50%) 50 ml Q30M PRN IV Hypoglycemia 03/11/18 09:10 04/10/18 09:09 Heparin Sodium (Porcine) (Heparin 5000 units/ml) 5,000 units EVERY 12 HOURS SUBQ 03/09/18 09:00 04/08/18 08:59 03/15/18 08:38 Insulin Aspart (NovoLOG) BEFORE MEALS AND HS SUBQ 03/11/18 11:30 04/10/18 11:29 03/15/18 11:48 Memantine (Namenda) 5 mg BID ORAL 03/13/18 09:00 04/12/18 08:59 03/15/18 08:36 Morphine Sulfate (Morphine Sulfate) 2 mg Q4H PRN IVP Severe Pain (Pain Scale 7-10) 03/09/18 02:00 03/16/18 01:59 Ondansetron HCl (Zofran) 4 mg Q6H PRN IVP Nausea & Vomiting 03/09/18 02:00 04/08/18 01:59 Phenazopyridine HCl (Pyridium) 100 mg DAILY PRN ORAL dysuria 03/09/18 02:00 04/08/18 01:59 Polyethylene Glycol (Miralax) 17 gm DAILYPRN PRN ORAL Constipation 03/09/18 02:00 04/08/18 01:59 Tamsulosin HCl (Flomax) 0.4 mg BEDTIME ORAL 03/09/18 21:00 04/08/18 20:59 03/14/18 21:25 Temazepam (Restoril) 15 mg HSPRN PRN ORAL Insomnia 03/09/18 02:00 03/16/18 01:59 Trimethoprim/ Sulfamethoxazole (Bactrim-DS) 1 tab Q12HR ORAL 03/11/18 21:00 03/18/18 20:59 03/15/18 08:34 Margie Britton MD Mar 15, 2018 12:34
--- NOTE | 2018-03-15 13:42 | General Progress Note ---
Assessment/Plan Problem List: (1) COPD (chronic obstructive pulmonary disease) ICD Codes: J44.9 - Chronic obstructive pulmonary disease, unspecified SNOMED: 57857545 (2) Severe protein-calorie malnutrition ICD Codes: E43 - Unspecified severe protein-calorie malnutrition SNOMED: 001233174 (3) BPH (benign prostatic hyperplasia) ICD Codes: N40.0 - Benign prostatic hyperplasia without lower urinary tract symptoms SNOMED: 833346897 (4) Balanoposthitis ICD Codes: N47.6 - Balanoposthitis SNOMED: 60965514 (5) Phimosis ICD Codes: N47.1 - Phimosis SNOMED: 587749852 (6) Urinary retention ICD Codes: R33.9 - Retention of urine, unspecified SNOMED: 894340580 Status: stable, progressing Assessment/Plan ot pt diet wound care abx uro f/u dc to snf if clear Subjective Constitutional: Reports: weakness Allergies: Coded Allergies: No Known Allergies (Unverified , 07/19/17) All Systems: reviewed and negative except above Subjective calm in bed eating, sl penile pain Objective Last 24 Hour Vital Signs Date Time Temp Pulse Resp B/P (MAP) Pulse Ox O2 Delivery O2 Flow Rate FiO2 03/15/18 12:00 94.5 96 18 122/62 (82) 96 03/15/18 09:00 Room Air 03/15/18 08:00 96.2 63 18 124/69 (87) 97 03/15/18 04:00 98.1 101 18 106/61 (76) 94 03/15/18 00:00 97.7 100 18 144/74 (97) 94 03/14/18 21:00 Room Air 03/14/18 20:00 98.0 95 19 140/68 (92) 94 03/14/18 19:51 96 16 Room Air 21 03/14/18 16:00 97.6 93 19 119/58 (78) 96 Intake and Output 03/14/18 03/15/18 19:00 07:00 Intake Total 864 ml 480 ml Balance 864 ml 480 ml Intake Oral 864 ml 480 ml # Voids 4 # Bowel Movements 2 1 Laboratory Tests 03/15/18 08:35: White Blood Count 7.4, Red Blood Count 4.50L, Hemoglobin 11.6L, Hematocrit 35.4L , Mean Corpuscular Volume 79L, Mean Corpuscular Hemoglobin 25.8L, Mean Corpuscular Hemoglobin Concent 32.8, Red Cell Distribution Width 14.6, Platelet Count 396, Mean Platelet Volume 6.7, Neutrophils (%) (Auto) 63.9, Lymphocytes (% ) (Auto) 16.9L, Monocytes (%) (Auto) 9.2, Eosinophils (%) (Auto) 8.4H, Basophils (%) (Auto) 1.7, Sodium Level 136, Potassium Level 4.4, Chloride Level 103, Carbon Dioxide Level 26, Anion Gap 7, Blood Urea Nitrogen 26H, Creatinine 1.7H, Estimat Glomerular Filtration Rate , Glucose Level 103, Calcium Level 9.2 Height (Feet): 5 Height (Inches): 11.00 General Appearance: lethargic EENT: normal ENT inspection Neck: normal alignment Cardiovascular: normal peripheral pulses, normal rate, regular rhythm Respiratory/Chest: chest wall non-tender, lungs clear, normal breath sounds Abdomen: normal bowel sounds, non tender, soft Extremities: normal inspection Edema: no edema noted Arm (L), no edema noted Arm (R), no edema noted Leg (L), no edema noted Leg (R), no edema noted Pedal (L), no edema noted Pedal (R), no edema noted Generalized Neurologic: responsive, motor weakness Skin: normal pigmentation, warm/dry Samir Cramer DO Mar 15, 2018 13:42
--- NOTE | 2018-03-15 14:27 | Infectious Diseases Prog Note ---
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 stuarti (R Amp, ancef, Genta; I Cipro/levo, Zosyn; CEftriaxone reported as S- however Anthony 8 0 ?resistant), S. Meropenem - 07/2017: MDR Proteus mirabilis BPH COPD DM2 cachexia chronic left shoulder dislocation Dementia [facility] resident VRE/MRSA colonized Plan: -Continue Bactrim abx d#/ for both UTI and cellulitis -monitor Cr and K -ok to discharge on this regimen -03/11 SP Cefepime #3, IV Vancomycin #3 -03/08 SP Ceftriaxone x1 -10/27 SP Bactrim#3 -10/24 SP Meropenem #4 -10/22 SP IV Vancomycin # 2 -10/21 Sp one time dose of AMikacin and Cefepime -10/02 SP Ertapenem #5 -09/27 SP Meropenem #2 -09/24 SP Keflex and Ertapenem x1 -07/2017 SP Ertapenem #5 -f/u cx -Monitor CBC/CMP, temperatures -Uro f/u- refusing circumcision at this point -Sx f/u Thank you for this consultation. Will continue to follow along with you. Discussed with RN. Subjective Allergies: Coded Allergies: No Known Allergies (Unverified , 07/19/17) Subjective afebrile no leukocytosis Cr stable penile cellulitis imrpoving Objective Vital Signs Last 24 Hour Vital Signs Date Time Temp Pulse Resp B/P (MAP) Pulse Ox O2 Delivery O2 Flow Rate FiO2 03/15/18 12:00 94.5 96 18 122/62 (82) 96 03/15/18 09:00 Room Air 03/15/18 08:00 96.2 63 18 124/69 (87) 97 03/15/18 04:00 98.1 101 18 106/61 (76) 94 03/15/18 00:00 97.7 100 18 144/74 (97) 94 03/14/18 21:00 Room Air 03/14/18 20:00 98.0 95 19 140/68 (92) 94 03/14/18 19:51 96 16 Room Air 21 03/14/18 16:00 97.6 93 19 119/58 (78) 96 Height (Feet): 5 Height (Inches): 11.00 Objective General Appearance: moderate distress HEENT: atraumatic, bilateral eye normal inspection, moist mucus membranes Neck: normal inspection, full range of motion, supple Respiratory: normal inspection, lungs clear Cardiovascular : regular rate, rhythm Gastrointestinal: other - Distended, tender over suprapubic region Genitourinary: no CVA tenderness, other - Phimosis,, irritated foreskin, urine appears trapped in foreskin Musculoskeletal: normal inspection, back normal, normal range of motion Neurologic: alert, responsive Skin: normal color Laboratory Tests Test 03/15/18 08:35 White Blood Count 7.4 K/UL (4.8-10.8) Red Blood Count 4.50 M/UL (4.70-6.10) L Hemoglobin 11.6 G/DL (14.2-18.0) L Hematocrit 35.4 % (42.0-52.0) L Mean Corpuscular Volume 79 FL (80-99) L Mean Corpuscular Hemoglobin 25.8 PG (27.0-31.0) L Mean Corpuscular Hemoglobin Concent 32.8 G/DL (32.0-36.0) Red Cell Distribution Width 14.6 % (11.6-14.8) Platelet Count 396 K/UL (150-450) Mean Platelet Volume 6.7 FL (6.5-10.1) Neutrophils (%) (Auto) 63.9 % (45.0-75.0) Lymphocytes (%) (Auto) 16.9 % (20.0-45.0) L Monocytes (%) (Auto) 9.2 % (1.0-10.0) Eosinophils (%) (Auto) 8.4 % (0.0-3.0) H Basophils (%) (Auto) 1.7 % (0.0-2.0) Sodium Level 136 MMOL/L (136-145) Potassium Level 4.4 MMOL/L (3.5-5.1) Chloride Level 103 MMOL/L (98-107) Carbon Dioxide Level 26 MMOL/L (21-32) Anion Gap 7 mmol/L (5-15) Blood Urea Nitrogen 26 mg/dL (7-18) H Creatinine 1.7 MG/DL (0.55-1.30) H Estimat Glomerular Filtration Rate mL/min (>60) Glucose Level 103 MG/DL (74-106) Calcium Level 9.2 MG/DL (8.5-10.1) Current Medications Medications (Trade) Dose Ordered Sig/Nicole Route PRN Reason Start Time Stop Time Status Last Admin Dose Admin Acetaminophen (Tylenol) 650 mg Q4H PRN ORAL fever 03/09/18 02:00 04/08/18 01:59 Acetaminophen/ Hydrocodone Bitart ([place] 5/325) 1 tab Q4H PRN ORAL Moderate Pain (Pain Scale 4-6) 03/09/18 02:00 03/16/18 01:59 Dextrose (Dextrose 50%) 25 ml Q30M PRN IV Hypoglycemia 03/11/18 09:10 04/10/18 09:09 Dextrose (Dextrose 50%) 50 ml Q30M PRN IV Hypoglycemia 03/11/18 09:10 04/10/18 09:09 Heparin Sodium (Porcine) (Heparin 5000 units/ml) 5,000 units EVERY 12 HOURS SUBQ 03/09/18 09:00 04/08/18 08:59 03/15/18 08:38 Insulin Aspart (NovoLOG) BEFORE MEALS AND HS SUBQ 03/11/18 11:30 04/10/18 11:29 03/15/18 11:48 Memantine (Namenda) 5 mg BID ORAL 03/13/18 09:00 04/12/18 08:59 03/15/18 08:36 Morphine Sulfate (Morphine Sulfate) 2 mg Q4H PRN IVP Severe Pain (Pain Scale 7-10) 03/09/18 02:00 03/16/18 01:59 Ondansetron HCl (Zofran) 4 mg Q6H PRN IVP Nausea & Vomiting 03/09/18 02:00 04/08/18 01:59 Phenazopyridine HCl (Pyridium) 100 mg DAILY PRN ORAL dysuria 03/09/18 02:00 04/08/18 01:59 Polyethylene Glycol (Miralax) 17 gm DAILYPRN PRN ORAL Constipation 03/09/18 02:00 04/08/18 01:59 Tamsulosin HCl (Flomax) 0.4 mg BEDTIME ORAL 03/09/18 21:00 04/08/18 20:59 03/14/18 21:25 Temazepam (Restoril) 15 mg HSPRN PRN ORAL Insomnia 03/09/18 02:00 03/16/18 01:59 Trimethoprim/ Sulfamethoxazole (Bactrim-DS) 1 tab Q12HR ORAL 03/11/18 21:00 03/18/18 20:59 03/15/18 08:34 Radha Barron M.D. Mar 15, 2018 14:27
[2018-03-15 16:00] VITALS: BP 116/72
--- NOTE | 2018-03-15 19:04 | Nephrology Progress Note ---
Assessment/Plan Assessment 1. Acute renal failure. 2. History of chronic kidney disease. 3. Possible diabetic nephropathy versus hypertensive nephrosclerosis. 4. Urinary tract infection. 5. Phimosis with cellulitis of penile area. Plan plan to continue current meds monitoring renal function closely avoid NSAID replace electrolyte as need it Subjective Constitutional: Reports: no symptoms HEENT: Reports: no symptoms Genitourinary: Reports: no symptoms Neurologic/Psychiatric: Reports: no symptoms Subjective alert and awake denies any problem Objective Objective Last 24 Hour Vital Signs Date Time Temp Pulse Resp B/P (MAP) Pulse Ox O2 Delivery O2 Flow Rate FiO2 03/15/18 16:00 97.3 96 18 116/72 (87) 98 03/15/18 12:00 94.5 96 18 122/62 (82) 96 03/15/18 09:00 Room Air 03/15/18 08:00 96.2 63 18 124/69 (87) 97 03/15/18 04:00 98.1 101 18 106/61 (76) 94 03/15/18 00:00 97.7 100 18 144/74 (97) 94 03/14/18 21:00 Room Air 03/14/18 20:00 98.0 95 19 140/68 (92) 94 03/14/18 19:51 96 16 Room Air 21 Intake and Output 03/14/18 03/15/18 19:00 07:00 Intake Total 864 ml 480 ml Balance 864 ml 480 ml Intake Oral 864 ml 480 ml # Voids 4 # Bowel Movements 2 1 Laboratory Tests 03/15/18 08:35: White Blood Count 7.4, Red Blood Count 4.50L, Hemoglobin 11.6L, Hematocrit 35.4L , Mean Corpuscular Volume 79L, Mean Corpuscular Hemoglobin 25.8L, Mean Corpuscular Hemoglobin Concent 32.8, Red Cell Distribution Width 14.6, Platelet Count 396, Mean Platelet Volume 6.7, Neutrophils (%) (Auto) 63.9, Lymphocytes (% ) (Auto) 16.9L, Monocytes (%) (Auto) 9.2, Eosinophils (%) (Auto) 8.4H, Basophils (%) (Auto) 1.7, Sodium Level 136, Potassium Level 4.4, Chloride Level 103, Carbon Dioxide Level 26, Anion Gap 7, Blood Urea Nitrogen 26H, Creatinine 1.7H, Estimat Glomerular Filtration Rate , Glucose Level 103, Calcium Level 9.2 Height (Feet): 5 Height (Inches): 11.00 Objective HEAD AND NECK: No JVP. No LAD. No thyromegaly. Extraocular movements intact. Pupils are reactive to light and accommodation. LUNGS: Clear to auscultation. CARDIAC: Regular rate and rhythm. S1, S2. No murmur. No rub. ABDOMEN: Soft, nontender, and nondistended. EXTREMITIES: No edema. No clubbing. No cyanosis. GENITOURINARY: The patient is found to have an irritation, phimosis, and swelling and redness around penal area. Mesha Day MD Mar 15, 2018 19:04
[2018-03-15 20:00] VITALS: BP 151/65
--- NOTE | 2018-03-15 20:00 | Progress Note ---
DATE: 03/15/2018 SUBJECTIVE: This is a 77-year-old male patient with urinary retention, which caused him to have increased altered mental status and confusion. His cognition has declined below his baseline. That is why, his attending has requested daily psychiatric consultation. MENTAL STATUS EXAMINATION: The patient is a 77-year-old male. Appearance is disheveled. Attitude, irritable and agitated. Affect, guarded and restricted. Intellect poor. Mood, depressed and anxious. Motor activity, psychomotor agitation. Attention span is poor. Orientation x2. Speech is pressured. Thought process, disorganized and illogical. Thought content, no auditory hallucinations or paranoid delusions. Insight and judgment is poor. DIAGNOSIS: Major depression with psychotic features, rule out pseudodementia. PLAN: Treat him with Namenda 5 mg twice a day to prevent further decline in cognition. Provided 20 minutes of cognitive behavioral therapy to help identify his automatic negative thoughts and to help him convert the negative thoughts to more positive thoughts to reduce depression, anxiety, and suicidality. Chart reviewed and discussed with staff. Seen and assessed in his room. Lea Dodd M.D. DR: CLARENCE JOB#: [id number] CC:
[2018-03-15] MEDS: Tamsulosin 0.4mg cap ORAL SCH (21:17)
[2018-03-16] VITALS: BP 146/76
[2018-03-16 04:00] VITALS: BP 146/51
[2018-03-16] MEDS: NovoLOG Insulin Flexpen SUBQ SCH ×2 (06:30→12:05)
[2018-03-16 08:00] VITALS: BP 112/71
[2018-03-16] MEDS: Bactrim-DS 1 tab ORAL SCH (08:19)
[2018-03-16] MEDS: Memantine 5 MG TAB ORAL SCH (08:19)
[2018-03-16] MEDS: Heparin 5000 units/ml inj SUBQ SCH (08:28)
--- NOTE | 2018-03-16 09:01 | Nephrology Progress Note ---
Assessment/Plan Assessment 1. Acute renal failure. 2. History of chronic kidney disease. 3. Possible diabetic nephropathy versus hypertensive nephrosclerosis. 4. Urinary tract infection. 5. Phimosis with cellulitis of penile area. Plan plan to continue current meds monitoring renal function closely avoid NSAID replace electrolyte as need it Subjective Constitutional: Reports: no symptoms HEENT: Reports: no symptoms Genitourinary: Reports: no symptoms Neurologic/Psychiatric: Reports: no symptoms Subjective alert and awake denies any complaints Objective Objective Last 24 Hour Vital Signs Date Time Temp Pulse Resp B/P (MAP) Pulse Ox O2 Delivery O2 Flow Rate FiO2 03/16/18 08:00 97.6 102 18 112/71 (85) 94 03/16/18 04:00 97.9 100 19 146/51 (82) 03/16/18 00:00 97.9 92 19 146/76 (99) 94 03/15/18 21:00 Room Air 03/15/18 20:00 97.9 58 19 151/65 (93) 95 03/15/18 20:00 90 18 Room Air 21 03/15/18 16:00 97.3 96 18 116/72 (87) 98 03/15/18 12:00 94.5 96 18 122/62 (82) 96 Intake and Output 03/15/18 03/16/18 18:59 06:59 Intake Total 500 ml Balance 500 ml Intake Oral 500 ml # Voids 4 2 # Bowel Movements 3 1 Height (Feet): 5 Height (Inches): 11.00 Objective HEAD AND NECK: No JVP. No LAD. No thyromegaly. Extraocular movements intact. Pupils are reactive to light and accommodation. LUNGS: Clear to auscultation. CARDIAC: Regular rate and rhythm. S1, S2. No murmur. No rub. ABDOMEN: Soft, nontender, and nondistended. EXTREMITIES: No edema. No clubbing. No cyanosis. GENITOURINARY: The patient is found to have an irritation, phimosis, and swelling and redness around penal area. Mesha Day MD Mar 16, 2018 09:01
[2018-03-16 12:00] VITALS: BP 136/70
--- NOTE | 2018-03-16 12:22 | Infectious Diseases Prog Note ---
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 stuarti (R Amp, ancef, Genta; I Cipro/levo, Zosyn; CEftriaxone reported as S- however Anthony 8 0 ?resistant), S. 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 Will continue to follow along with you. Discussed with RN. Subjective Allergies: Coded Allergies: No Known Allergies (Unverified , 07/19/17) Subjective afebrile no leukocytosis Cr stable penile cellulitis imrpoving Objective Vital Signs Last 24 Hour Vital Signs Date Time Temp Pulse Resp B/P (MAP) Pulse Ox O2 Delivery O2 Flow Rate FiO2 03/16/18 09:00 Room Air 03/16/18 08:00 97.6 102 18 112/71 (85) 94 03/16/18 04:00 97.9 100 19 146/51 (82) 03/16/18 00:00 97.9 92 19 146/76 (99) 94 03/15/18 21:00 Room Air 03/15/18 20:00 97.9 58 19 151/65 (93) 95 03/15/18 20:00 90 18 Room Air 21 03/15/18 16:00 97.3 96 18 116/72 (87) 98 Height (Feet): 5 Height (Inches): 11.00 Objective General Appearance: moderate distress HEENT: atraumatic, bilateral eye normal inspection, moist mucus membranes Neck: normal inspection, full range of motion, supple Respiratory: normal inspection, lungs clear Cardiovascular : regular rate, rhythm Gastrointestinal: other - Distended, tender over suprapubic region Genitourinary: no CVA tenderness, other - Phimosis,, irritated foreskin, urine appears trapped in foreskin Musculoskeletal: normal inspection, back normal, normal range of motion Neurologic: alert, responsive Skin: normal color Current Medications Medications (Trade) Dose Ordered Sig/Nicole Route PRN Reason Start Time Stop Time Status Last Admin Dose Admin Acetaminophen (Tylenol) 650 mg Q4H PRN ORAL fever 03/09/18 02:00 04/08/18 01:59 Dextrose (Dextrose 50%) 25 ml Q30M PRN IV Hypoglycemia 03/11/18 09:10 04/10/18 09:09 Dextrose (Dextrose 50%) 50 ml Q30M PRN IV Hypoglycemia 03/11/18 09:10 04/10/18 09:09 Heparin Sodium (Porcine) (Heparin 5000 units/ml) 5,000 units EVERY 12 HOURS SUBQ 03/09/18 09:00 04/08/18 08:59 03/16/18 08:28 Insulin Aspart (NovoLOG) BEFORE MEALS AND HS SUBQ 03/11/18 11:30 04/10/18 11:29 03/15/18 17:39 Memantine (Namenda) 5 mg BID ORAL 03/13/18 09:00 04/12/18 08:59 03/16/18 08:19 Ondansetron HCl (Zofran) 4 mg Q6H PRN IVP Nausea & Vomiting 03/09/18 02:00 04/08/18 01:59 Phenazopyridine HCl (Pyridium) 100 mg DAILY PRN ORAL dysuria 03/09/18 02:00 04/08/18 01:59 Polyethylene Glycol (Miralax) 17 gm DAILYPRN PRN ORAL Constipation 03/09/18 02:00 04/08/18 01:59 Tamsulosin HCl (Flomax) 0.4 mg BEDTIME ORAL 03/09/18 21:00 04/08/18 20:59 03/15/18 21:17 Trimethoprim/ Sulfamethoxazole (Bactrim-DS) 1 tab Q12HR ORAL 03/11/18 21:00 03/18/18 20:59 03/16/18 08:19 Radha Barron M.D. Mar 16, 2018 12:22
--- NOTE | 2018-03-16 12:35 | General Progress Note ---
Assessment/Plan Problem List: (1) COPD (chronic obstructive pulmonary disease) ICD Codes: J44.9 - Chronic obstructive pulmonary disease, unspecified SNOMED: 68019179 (2) Severe protein-calorie malnutrition ICD Codes: E43 - Unspecified severe protein-calorie malnutrition SNOMED: 259743943 (3) BPH (benign prostatic hyperplasia) ICD Codes: N40.0 - Benign prostatic hyperplasia without lower urinary tract symptoms SNOMED: 919363751 (4) Balanoposthitis ICD Codes: N47.6 - Balanoposthitis SNOMED: 07702888 (5) Phimosis ICD Codes: N47.1 - Phimosis SNOMED: 800000054 (6) Urinary retention ICD Codes: R33.9 - Retention of urine, unspecified SNOMED: 776604454 Status: stable, progressing Assessment/Plan ot pt diet wound care abx uro f/u cbc bmp am dc to snf if clear Subjective Constitutional: Reports: weakness Allergies: Coded Allergies: No Known Allergies (Unverified , 07/19/17) All Systems: reviewed and negative except above Subjective calm in bed eating Objective Last 24 Hour Vital Signs Date Time Temp Pulse Resp B/P (MAP) Pulse Ox O2 Delivery O2 Flow Rate FiO2 03/16/18 09:00 Room Air 03/16/18 08:00 97.6 102 18 112/71 (85) 94 03/16/18 04:00 97.9 100 19 146/51 (82) 03/16/18 00:00 97.9 92 19 146/76 (99) 94 03/15/18 21:00 Room Air 03/15/18 20:00 97.9 58 19 151/65 (93) 95 03/15/18 20:00 90 18 Room Air 21 03/15/18 16:00 97.3 96 18 116/72 (87) 98 Intake and Output 03/15/18 03/16/18 19:00 07:00 Intake Total 500 ml Balance 500 ml Intake Oral 500 ml # Voids 4 2 # Bowel Movements 3 1 Height (Feet): 5 Height (Inches): 11.00 General Appearance: lethargic EENT: normal ENT inspection Neck: normal alignment Cardiovascular: normal peripheral pulses, normal rate, regular rhythm Respiratory/Chest: chest wall non-tender, lungs clear, normal breath sounds Abdomen: normal bowel sounds, non tender, soft Extremities: normal inspection Edema: no edema noted Arm (L), no edema noted Arm (R), no edema noted Leg (L), no edema noted Leg (R), no edema noted Pedal (L), no edema noted Pedal (R), no edema noted Generalized Neurologic: motor weakness Skin: normal pigmentation, warm/dry Samir Cramer DO Mar 16, 2018 12:35
--- NOTE | 2018-03-16 13:11 | Pulmonology Progress Note ---
Assessment/Plan Problems: (1) Urinary retention (2) COPD (chronic obstructive pulmonary disease) (3) Balanoposthitis (4) Severe protein-calorie malnutrition (5) BPH (benign prostatic hyperplasia) Assessment/Plan no new complains symptomatic treatment check cultures no new complains iv fluids evaluation appreciated renal studies dvt prophylaxis dc planning Subjective ROS Limited/Unobtainable: No Constitutional: Reports: no symptoms Respiratory: Reports: no symptoms Allergies: Coded Allergies: No Known Allergies (Unverified , 07/19/17) Objective Last 24 Hour Vital Signs Date Time Temp Pulse Resp B/P (MAP) Pulse Ox O2 Delivery O2 Flow Rate FiO2 03/16/18 12:00 97.0 101 18 136/70 (92) 96 03/16/18 09:00 Room Air 03/16/18 08:00 97.6 102 18 112/71 (85) 94 03/16/18 04:00 97.9 100 19 146/51 (82) 03/16/18 00:00 97.9 92 19 146/76 (99) 94 03/15/18 21:00 Room Air 03/15/18 20:00 97.9 58 19 151/65 (93) 95 03/15/18 20:00 90 18 Room Air 21 03/15/18 16:00 97.3 96 18 116/72 (87) 98 Intake and Output 03/15/18 03/16/18 19:00 07:00 Intake Total 500 ml Balance 500 ml Intake Oral 500 ml # Voids 4 2 # Bowel Movements 3 1 Objective General Appearance: WD/WN HEENT: normocephalic, anicteric Respiratory/Chest: chest wall non-tender, lungs clear Cardiovascular: normal peripheral pulses, normal rate Abdomen: normal bowel sounds, no organomegaly Genitourinary: normal external genitalia Skin: no rash Current Medications Medications (Trade) Dose Ordered Sig/Nicole Route PRN Reason Start Time Stop Time Status Last Admin Dose Admin Acetaminophen (Tylenol) 650 mg Q4H PRN ORAL fever 03/09/18 02:00 04/08/18 01:59 Dextrose (Dextrose 50%) 25 ml Q30M PRN IV Hypoglycemia 03/11/18 09:10 04/10/18 09:09 Dextrose (Dextrose 50%) 50 ml Q30M PRN IV Hypoglycemia 03/11/18 09:10 04/10/18 09:09 Heparin Sodium (Porcine) (Heparin 5000 units/ml) 5,000 units EVERY 12 HOURS SUBQ 03/09/18 09:00 04/08/18 08:59 03/16/18 08:28 Insulin Aspart (NovoLOG) BEFORE MEALS AND HS SUBQ 03/11/18 11:30 04/10/18 11:29 03/15/18 17:39 Memantine (Namenda) 5 mg BID ORAL 03/13/18 09:00 04/12/18 08:59 03/16/18 08:19 Ondansetron HCl (Zofran) 4 mg Q6H PRN IVP Nausea & Vomiting 03/09/18 02:00 04/08/18 01:59 Phenazopyridine HCl (Pyridium) 100 mg DAILY PRN ORAL dysuria 03/09/18 02:00 04/08/18 01:59 Polyethylene Glycol (Miralax) 17 gm DAILYPRN PRN ORAL Constipation 03/09/18 02:00 04/08/18 01:59 Tamsulosin HCl (Flomax) 0.4 mg BEDTIME ORAL 03/09/18 21:00 04/08/18 20:59 03/15/18 21:17 Trimethoprim/ Sulfamethoxazole (Bactrim-DS) 1 tab Q12HR ORAL 03/11/18 21:00 03/18/18 20:59 03/16/18 08:19 Margie Britton MD Mar 16, 2018 13:11
--- NOTE | 2018-03-16 17:00 | Progress Note ---
DATE: 03/16/2018 NOTE: "POOR AUDIO QUALITY" SUBJECTIVE: The patient is a 77-year-old patient with urinary retention. This is a 77-year-old male patient who continues to have some confusion, disorganized thought process, mood lability, worsened by stress of his medical illness, that is why he has required inpatient treatment at this time. He has but mostly altered mental status worsened due to stress of the medical illness. That is why, his attending has requested daily psychiatric consultation. MENTAL STATUS EXAMINATION: This is a 77-year-old male. Appearance is disheveled. Attitude, irritable and agitated. Affect, guarded and restricted. Intellect poor. Mood, depressed and anxious. Motor activity, psychomotor agitation. Attention is poor. Orientation x2. Speech is pressured. Thought process, disorganized and illogical. Thought content, auditory hallucinations and paranoid delusions. Insight and judgment is poor. DIAGNOSIS: Major depression with psychotic features, rule out pseudodementia. PLAN: Treat him with Namenda 5 mg twice a day. Provided 20 minutes of cognitive behavioral therapy to help him identify his automatic negative thoughts and help him to convert negative thoughts to more positive thoughts to reduce depression, anxiety, suicidality, impulsivity, and also to help him to convert to more adaptive behavioral pattern. Chart reviewed. Discussed with staff. Lea Dodd M.D. DR: Radha JOB#: [id number] CC:
--- NOTE | 2018-03-17 13:47 | Discharge Summary ---
Discharge Summary Discharge Summary _ DATE OF ADMISSION: 03/08/2018 DATE OF DISCHARGE: 03/16/2018 CONSULTANTS: Dr. Lea Brady BRIEF HOSPITAL COURSE: Patient is a 77-year-old male, from [facility], presented with dysuria for 1 week. He complained of penile pain, abdominal discomfort, suprapubic discomfort and fullness. He has medical history significant for diabetes mellitus, phimosis, balanitis, urinary retention, generalized weakness , and decubitus. On evaluation at ED, blood pressure was elevated to 170/87, heart rate 140, 94% oxygen saturation on room air. Blood work showed leukocytosis, WBC was elevated to 16, hemoglobin 12.6, hematocrit 38. BUN was 33, creatinine 1.5. Urinalysis showed 3+ leukocyte esterase, 4+ blood, 4+ protein, 15-20 RBC, 40-60 WBC. He presented with severe discomfort and urinary retention. Attempts at placing a straight catheter was unsuccessful because of severe phimosis. ED physician was able to use 20-gauge catheter to gently opened phimosis and patient was able to urinate. He was then admitted for UTI and for further evaluation of urinary retention and phimosis. ID was consulted. Patient has recurrent history of urinary tract infection. He was started on cefepime and IV vancomycin pending culture results. Clinical Informatics Physician was consulted to assess renal failure. He had a prior ultrasound of the kidney done recently that showed normal kidneys with a nonobstructive left kidney stone. Urologist was consulted. On examination, revealed inflamed and cellulitic foreskin with baseline phimosis. There was no evidence of abscess, jane's gangrene, or other issues requiring surgical intervention. He was offered circumcision to alleviate his issues, however, patient refused. He was then recommended to continue antibiotic treatment. He was given Flomax. Urine culture showed growth of ESBL Proteus. Antibiotics were switched to Bactrim for both UTI and cellulitis coverage. He underwent psychiatric evaluation. He was diagnosed with major depression with psychotic features. He was treated with Namenda 5 mg twice a day. He was given behavior therapy. Patient was noted on admission to have multiple wounds requiring care/ management. Surgery was called to evaluate. Patient has a stage IV full- thickness pressure injury to the right and left buttocks; deep tissue pressure injury to the sacrum; plantar right heel nonblanching erythema; dry and loose scab to lateral bilateral feet. He was placed on surface support mattress. He was given wound care with frequent repositioning and offloading. Repeat urine culture showed MSSA, likely from surrounding cellulitis. He was eventually cleared for discharge back to senior care to continue with Bactrim for 5 more days. FINAL DIAGNOSES: Recurrent penile cellulitis/balanoposthitis ESBL Proteus UTI Acute renal failure Chronic kidney disease Urinary retention COPD Severe protein calorie malnutrition BPH Major depression with psychotic features Decubiti pressure ulcer, as stated above, present on admission DISPOSITION: Patient was discharged to [facility]. DISCHARGE MEDICATIONS: Refer to Discharge Medication List. Continue Bactrim for 5 more days. I have been assigned to dictate discharge summary on this account, and I was not involved in the patient's management. Madelin Little NP Mar 17, 2018 13:47
== END 2018-03-16 15:17 | DRG 727 ==
LOC: EDBD 20:07 → EMR 21:12 → 4E 21:16 → EDBEDREQ 22:17
DX: N48.22 Cellulitis of corpus cavernosum and penis (principal); L89.324 Pressure ulcer of left buttock, stage 4; L89.314 Pressure ulcer of right buttock, stage 4; E43 Unspecified severe protein-calorie malnutrition; N39.0 Urinary tract infection, site not specified; N17.9 Acute kidney failure, unspecified; F33.3 Major depressive disorder, recurrent, severe with psychotic symptoms; N47.6 Balanoposthitis; B96.4 Proteus (mirabilis) (morganii) as the cause of diseases classified elsewhere; N47.1 Phimosis; J44.9 Chronic obstructive pulmonary disease, unspecified; E11.9 Type 2 diabetes mellitus without complications; Z16.12 Extended spectrum beta lactamase (ESBL) resistance; N18.9 Chronic kidney disease, unspecified; N40.1 Benign prostatic hyperplasia with lower urinary tract symptoms; R33.8 Other retention of urine; B95.61 Methicillin susceptible Staphylococcus aureus infection as the cause of diseases classified elsewhere; L89.150 Pressure ulcer of sacral region, unstageable; F03.90 Unspecified dementia, unspecified severity, without behavioral disturbance, psychotic disturbance, mood disturbance, and anxiety; M24.412 Recurrent dislocation, left shoulder; E11.22 Type 2 diabetes mellitus with diabetic chronic kidney disease
CPT/HCPCS: 36415; 80048; 80053; 81003; 82044; 82570; 82962; 83036; 83690; 84300; 85007; 85025; 87040; 87081; 87086; 87181; 89050; 94664; 96365; 97803; 99285; J1815

== ENCOUNTER 2018-08-09 01:35 | Inpatient (IN) | payer MEDICAID, MEDICARE ==
[~2018-08-09] VITALS: Ht 172.7 cm; Wt 54.4 kg
[2018-08-09] VITALS (9 sets, daily range): BP systolic 90–143; BP diastolic 50–98
[~2018-08-09 01:35] MED LIST changes: +ACETAMINOPHEN325 M1 ORAL; +BACTRIM-DS1 EA ORAL; +HEPARIN SO5000 UNIT2 SUBQ; +IPRATROPIU0.2 MG/1 M HHN; +NAMENDA5 MG ORAL; +NORCO 5-325 TA1 EACH ORAL; +NOVOLOG100 UNIT/4 SQ; +PHENAZOPYRIDIN100 MG ORAL; +POLYETHYLENE GL17 GM ORAL; +RESTORIL15 MG ORAL
--- NOTE | 2018-08-09 01:50 | NUR ---
ED Nurse Note: pt brought in by ambulance from [facility] s/p fall per PAMELA Alberto report, pt AA&ox1, states he was trying to go to bathroom and fell. noted tenderness on left hip area with bruises on left hip and left buttock, noted pressure wound, redness on sacral buttock area x1. pt AA&o1, gcs=14, skin warm and dry, resp even and unlabored on RA, reports pain 10/10, sinus tach, noted temp 100.1 rectal, ERMD notified, will cont monitor.
[2018-08-09] MEDS ORDERED: Morphine Sulfate 4mg/ml Inj (IV USE ONLY) IVP ONE (02:00)
--- NOTE | 2018-08-09 02:00 | Emergency Room Report ---
History of Present Illness General Chief Complaint: Lower Extremity Injury Source: Patient Present Illness [facility] This is a 78-year-old male with a history of UTI, malnutrition and is mostly bedbound. He presents with chief complaint of left hip pain. He had an unwitnessed fall about 3 days ago. Because of complaining of left ear pain x- ray was done. [facility] at the shelter showed impacted left intertrochanteric fracture. Patient say pain is 7 out of 10. Worse with movement. Better with rest. No nausea no vomiting. No syncope. No other complaint. Patient is a DO NOT RESUSCITATE with selective treatment. Allergies: Coded Allergies: No Known Allergies (Unverified , 07/19/17) Patient History Past Medical History: see triage record, old chart reviewed Past Surgical History: other Pertinent Family History: none Social History: Denies: smoking Immunizations: other Reviewed Nursing Documentation: PMH: Agreed; PSxH: Agreed Nursing Documentation-PMH Past Medical History: No History, Except For Hx Asthma: Yes - obstructive and reflux uropathy, unspecified Hx Diabetes: Yes Hx Cancer: No Hx Gastrointestinal Problems: No Hx Weakness: Yes Review of Systems Eye: Denies: eye pain, blurred vision ENT: Denies: ear pain, nose congestion, throat swelling Respiratory: Denies: cough, shortness of breath Cardiovascular: Denies: chest pain, palpitations Gastrointestinal: Denies: abdominal pain, diarrhea, nausea, vomiting Musculoskeletal: Reports: joint pain; Denies: back pain Skin: Denies: rash Neurological: Denies: headache, numbness Endocrine: Denies: increased thirst, increased urine Hematologic/Lymphatic: Denies: easy bruising All Other Systems: negative except mentioned in HPI Physical Exam Vital Signs Date Time Temp Pulse Resp B/P (MAP) Pulse Ox O2 Delivery O2 Flow Rate FiO2 08/09/18 01:30 98.2 123 22 133/59 93 Room Air vitals with tachycardia Sp02 EP Interpretation: reviewed, normal General Appearance: no apparent distress, alert, thin, Chronically Ill Head: normocephalic, atraumatic Eyes: bilateral eye PERRL, bilateral eye EOMI ENT: hearing grossly normal, normal pharynx Neck: full range of motion, supple, no meningismus Respiratory: chest non-tender, lungs clear, normal breath sounds Cardiovascular #1: regular rate, rhythm, no murmur Gastrointestinal: normal bowel sounds, non tender, no mass, no organomegaly, no bruit, non-distended Musculoskeletal: back normal, other - left hip pain Psychiatric: mood/affect normal Skin: warm/dry Medical Decision Making Diagnostic Impression: Primary Impression: Closed left hip fracture Qualified Codes: S72.002A - Fracture of unspecified part of neck of left femur , initial encounter for closed fracture Additional Impressions: Phimosis Fever Qualified Codes: R50.9 - Fever, unspecified ER Course Patient presents with a unwitnessed fall and has a intertrochanteric left femur fracture. He also has a low-grade fever. No obvious source from a pneumonia standpoint. I see no evidence of an infected decubital ulcer. Most likely sources urine. He grew out multidrug-resistant Proteus in the past. Sensitive to Zosyn. He has severe phimosis where he can't even put an 8 Azeri in and out catheter. I presumptively put him on Zosyn. I contacted Dr. Cramer for admission and Dr. Alcantar for ortho consult. Lab Results Impression labs unremark EKG Diagnostic Results Rate: tachycardiac Rhythm: NSR ST Segments: no acute changes ASA given to the pt in ED: No Rhythm Strip Diag. Results EP Interpretation: yes Rate: 100 Rhythm: NSR, no PVC's, no ectopy Chest X-Ray Diagnostic Results Chest X-Ray Diagnostic Results : Chest X-Ray Ordered: Yes # of Views/Limited/Complete: 1 View Indication: Chest Pain EP Interpretation: Yes Interpretation: no consolidation, no effusion, no pneumothorax, no acute cardiopulmonary disease Impression: No acute disease Electronically Signed by: Brandon Monte MD Other X-Ray Diagnostic Results Other X-Ray Diagnostic Results : X-Ray ordered: Left hip xrays # of Views/Limited Vs Complete: 4 View Indication: Pain EP Interpretation: Yes Interpretation: no dislocation, no soft tissue swelling, other - Displaced left IT frx. Impression: Other - Left Intertrochanteric frx. Electronically Signed by: Brandon Monte MD Last Vital Signs Date Time Temp Pulse Resp B/P (MAP) Pulse Ox O2 Delivery O2 Flow Rate FiO2 08/09/18 01:30 98.2 123 22 133/59 93 Room Air Status: improved Disposition: ADMITTED INPATIENT Condition: Serious Brandon Monte MD August 09, 2018 02:00
[2018-08-09] MEDS ORDERED: Acetaminophen 500mg (ES) tab ORAL ONE (02:15)
--- NOTE | 2018-08-09 02:30 | NUR ---
ED Nurse Note: pt cleaned and changed into gown. will cont monitor.
--- NOTE | 2018-08-09 02:45 | NUR ---
ED Nurse Note: unable to obtain urine specimen, per ERMD order, condom cath applied.
[2018-08-09 02:52] LABS: BASOPHILS % (AUTO) 0.7 % (0.0-2.0); EOSINOPHILS % (AUTO) 0.5 % (0.0-3.0); HEMATOCRIT 43.1 % (37.0-47.0); HEMOGLOBIN 14.3 G/DL (12.0-16.0); LYMPHOCYTES % (AUTO) 7.8 % (20.0-45.0); MEAN CORPUSCULAR VOLUME 83 FL (80-99); MONOCYTES % (AUTO) 8.7 % (1.0-10.0); NEUTROPHILS % (AUTO) 82.3 % (45.0-75.0); PLATELET COUNT 429 K/UL (150-450); RED CELL DISTRIBUTION WIDTH 14.3 % (11.6-14.8); WHITE BLOOD COUNT 13.5 K/UL (4.8-10.8)
[2018-08-09 03:03] LABS: ANION GAP 10 mmol/L (5-15); BLOOD UREA NITROGEN 30 mg/dL (7-18); CALCIUM 9.8 MG/DL (8.5-10.1); CARBON DIOXIDE 27 MMOL/L (21-32); CHLORIDE 99 MMOL/L (98-107); CREATININE 1.6 MG/DL (0.55-1.30); POTASSIUM 4.1 MMOL/L (3.5-5.1); SODIUM 136 MMOL/L (136-145)
[2018-08-09] MEDS ORDERED: Piperacillin/Tazobactam 3.375 GM in NS 110 ML IVPB ONE (03:30)
--- NOTE | 2018-08-09 05:00 | NUR ---
ED Nurse Note: urine specimen obtained and sent to lab.
[2018-08-09 05:15] LABS: APPEARANCE,URINE CLOUDY; BILIRUBIN, URINE NEGATIVE (NEGATIVE); COLOR,URINE PALE YELLOW; GLUCOSE, URINE (UA) NEGATIVE (NEGATIVE); KETONES,URINE NEGATIVE (NEGATIVE); LEUKOCYTE ESTERASE ,URINE 3+ (NEGATIVE); NITRITE,URINE NEGATIVE (NEGATIVE); PH,URINE 7 (4.5-8.0); PROTEIN,URINE 3+ (NEGATIVE); UROBILINOGEN,URINE NORMAL MG/DL (0.0-1.0)
--- NOTE | 2018-08-09 05:33 | NUR ---
ED Nurse Note: report given to RN Rola, pt transferred to [place], pt has no belongings, endorsed care to [facility] staff/Rola, RN. pt vss, iv intact and patent.
--- NOTE | 2018-08-09 06:00 | NUR ---
NURSE NOTES: Received report from PAMELA Burnett, ER nurse over the telephone. Patient arrived via tech. No belongings. Patient A&Ox1. On room air. IV intact, patent, and saline locked. Bed in lowest position with call light in reach. Will notify MD for admission order.
--- NOTE | 2018-08-09 07:47 | NUR ---
NURSE NOTES: Patient alert x1, on room air; no sign of distress and shortness of breath; no sign of chest pain; IV Left-wrist and Right AC; condom cath in place, drains yellow urine; side rails up x2, breaks engaged, bed at lowest position. will keep monitoring.
--- NOTE | 2018-08-09 08:00 | NUR ---
HAND-OFF: Report given to PAMELA Ovalles.
--- NOTE | 2018-08-09 08:53 | Consultation ---
Consult Note Consult Note 78 yo male with fall and left hip pain Left hip IT fracture Rec Left hip ORIF with gamma nail on Tuesday morning. Med clearance, 2D echo. NPO d/w pt full note dictated Mary Sebastian August 09, 2018 08:53
--- NOTE | 2018-08-09 11:38 | Diagnostic Imaging Report ---
Indication: Chest pain after falling one day ago Technique: One view of the chest Comparison: 10/20/2017 Findings: Patient is rotated to the right. The lungs and pleural spaces are clear. The heart size is normal. The aorta is tortuous calcified and ectatic. Fairly extensive degenerative proliferative changes of the left shoulder are noted with possible chronic anterior subluxation or dislocation, appearance similar to previous exams. Impression: No acute process Chronic left shoulder dislocation, also previously reported
--- NOTE | 2018-08-09 11:41 | Diagnostic Imaging Report ---
Indication: Left hip pain after falling Technique: 2 views of the left hip Comparison: none Findings: There is a fracture of the left hip intertrochanteric region. This is slightly displaced and angulated. No definite associated pelvic fracture. Impression: Positive for left hip intertrochanteric fracture This agrees with the preliminary interpretation reported by the emergency room physician in the electronic medical record
--- NOTE | 2018-08-09 12:18 | NUR ---
NURSE NOTES: According to Concepcion from [facility] rehab patient refused flue and pneumonia vaccine.
--- NOTE | 2018-08-09 12:41 | NUR ---
NURSE NOTES: Receided order from MD Britton, code status, FULL.
[2018-08-09] MEDS ORDERED: HYDROcodone/Acetamin 5/325 tab ORAL PRN (14:00)
[2018-08-09] MEDS ORDERED: Miralax 17gm pkt ORAL PRN (14:00)
[2018-08-09] MEDS ORDERED: Acetaminophen 650mg/20.3ml ORAL PRN (14:00)
--- NOTE | 2018-08-09 14:02 | Consultation ---
History of Present Illness General Date patient seen: August 09, 2018 Chief Complaint: Lower Extremity Injury Present Illness HPI 78-year-old male with hx of COPD, Dementia, fdc resident, malnutrition , mostly bedbound presented to ER with chief complaint of left hip pain. He had an unwitnessed fall about 3 days ago. Because of complaining of left ear pain x-ray was done. X-ray at the [facility] showed impacted left intertrochanteric fracture. Patient say pain is 7 out of 10. Worse with movement. Better with rest. Pt is admitted for further management. Allergies: Coded Allergies: No Known Allergies (Unverified , 07/19/17) Medication History Scheduled Ascorbic Acid* (Vitamin C*), 500 MG ORAL DAILY, (Reported) Docusate Sodium* (Docusate Sodium*), 100 MG ORAL TWICE A DAY, (Reported) Heparin Sod (Porcine) (Heparin Sodium*), 5,000 UNITS SUBQ EVERY 12 HOURS, ( Reported) Insulin Aspart (Novolog), 100 UNIT SQ AC+HS, (Reported) Memantine Hcl* (Namenda*), 5 MG ORAL TWICE A DAY, (Reported) Multivitamin With Minerals (Multivitamins With Minerals*), 1 TAB ORAL DAILY, ( Reported) Tamsulosin Hcl (Tamsulosin Hcl*), 0.4 MG ORAL BEDTIME, (Reported) Trimethoprim/Sulfamethoxazole (Bactrim Ds Tablet), 1 TAB ORAL TWICE A DAY, ( Reported) Trimethoprim/Sulfamethoxazole 160/800* (Bactrim Ds Tablet*), 1 TAB ORAL Q12H Zinc Sulfate (Zinc Sulfate*), 220 MG ORAL DAILY, (Reported) Scheduled PRN Acetaminophen (Acetaminophen), 650 MG ORAL Q4HR PRN for Mild Pain/Temp > 100.5, (Reported) Acetaminophen* (Acetaminophen 325MG Tablet*), 650 MG ORAL Q4H PRN for Fever/ Headache/Mild Pain, (Reported) Hydrocodone Bit/Acetaminophen 5-325* ([place] 5-325 Tablet*), 1 TAB ORAL Q4H PRN for Moderate Pain (Pain Scale 4-6), (Reported) Hydrocodone Bit/Acetaminophen 5-325* ([place] 5-325*), 1 TAB ORAL Q4H PRN for For Pain, (Reported) Ipratropium [place] 0.5MG/2.5ML (Ipratropium [place] 0.5MG/2.5ML), 0.5 MG HHN Q4H PRN for Shortness of Breath, (Reported) Melatonin (Melatonin), 3 MG PO for Insomnia, (Reported) Ondansetron* (Zofran*), 4 MG ORAL Q6H PRN for Nausea & Vomiting, (Reported) Phenazopyridine Hcl* (Pyridium*), 100 MG ORAL DAILY PRN for dysuria, (Reported) Polyethylene Glycol 3350* (Polyethylene Glycol 3350*), 17 GM ORAL DAILY PRN for Constipation, (Reported) Temazepam* (Restoril*), 15 MG ORAL BEDTIME PRN for Insomnia, (Reported) Patient History Healthcare decision maker Resuscitation status Advanced Directive on File Past Medical/Surgical History Past Medical/Surgical History: (1) Decubitus ulcer (2) MDRO (multiple drug resistant organisms) resistance (3) BPH (benign prostatic hyperplasia) (4) Severe protein-calorie malnutrition (5) COPD (chronic obstructive pulmonary disease) (6) Anemia Review of Systems All Other Systems: negative except mentioned in HPI Physical Exam General Appearance: cachetic Lines, tubes and drains: peripheral HEENT: normocephalic, atraumatic Neck: non-tender, normal alignment Respiratory/Chest: chest wall non-tender, lungs clear Breasts: no masses Cardiovascular/Chest: normal peripheral pulses, normal rate Abdomen: normal bowel sounds, soft Genitourinary/Rectal: normal genital exam Extremities: normal range of motion 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 Last 24 Hour Vital Signs Date Time Temp Pulse Resp B/P (MAP) Pulse Ox O2 Delivery O2 Flow Rate FiO2 08/09/18 12:00 97.4 88 18 102/95 (97) 95 08/09/18 09:00 Room Air 08/09/18 08:00 97.9 90 20 90/50 (63) 95 08/09/18 06:36 Room Air 08/09/18 06:00 Room Air 08/09/18 05:32 98.9 98 16 132/86 100 Room Air 08/09/18 05:30 97.9 92 20 90/60 (70) 95 08/09/18 05:24 90 16 Room Air 08/09/18 05:00 98.9 98 18 129/78 100 Room Air 08/09/18 04:00 99.7 100 22 132/87 100 Room Air 08/09/18 03:02 98.3 08/09/18 03:01 98.3 08/09/18 03:00 99.9 110 22 138/87 97 Room Air 08/09/18 02:00 100.1 120 22 143/67 95 Room Air 08/09/18 01:30 98.2 123 22 133/59 93 Room Air Laboratory Tests Test 08/09/18 02:20 08/09/18 05:00 White Blood Count 13.5 K/UL (4.8-10.8) H Red Blood Count 5.20 M/UL (4.20-5.40) Hemoglobin 14.3 G/DL (12.0-16.0) Hematocrit 43.1 % (37.0-47.0) Mean Corpuscular Volume 83 FL (80-99) Mean Corpuscular Hemoglobin 27.5 PG (27.0-31.0) Mean Corpuscular Hemoglobin Concent 33.2 G/DL (32.0-36.0) Red Cell Distribution Width 14.3 % (11.6-14.8) Platelet Count 429 K/UL (150-450) Mean Platelet Volume 5.9 FL (6.5-10.1) L Neutrophils (%) (Auto) 82.3 % (45.0-75.0) H Lymphocytes (%) (Auto) 7.8 % (20.0-45.0) L Monocytes (%) (Auto) 8.7 % (1.0-10.0) Eosinophils (%) (Auto) 0.5 % (0.0-3.0) Basophils (%) (Auto) 0.7 % (0.0-2.0) Prothrombin Time 10.4 SEC (9.30-11.50) Prothromb Time International Ratio 1.0 (0.9-1.1) Activated Partial Thromboplast Time 30 SEC (23-33) Sodium Level 136 MMOL/L (136-145) Potassium Level 4.1 MMOL/L (3.5-5.1) Chloride Level 99 MMOL/L (98-107) Carbon Dioxide Level 27 MMOL/L (21-32) Anion Gap 10 mmol/L (5-15) Blood Urea Nitrogen 30 mg/dL (7-18) H Creatinine 1.6 MG/DL (0.55-1.30) H Estimat Glomerular Filtration Rate mL/min (>60) Glucose Level 160 MG/DL (74-106) H Lactic Acid Level 1.80 mmol/L (0.4-2.0) Calcium Level 9.8 MG/DL (8.5-10.1) Urine Color Pale yellow Urine Appearance Cloudy Urine pH 7 (4.5-8.0) Urine Specific [place] 1.010 (1.005-1.035) Urine Protein 3+ (NEGATIVE) H Urine Glucose (UA) Negative (NEGATIVE) Urine Ketones Negative (NEGATIVE) Urine Blood 5+ (NEGATIVE) H Urine Nitrite Negative (NEGATIVE) Urine Bilirubin Negative (NEGATIVE) Urine Urobilinogen Normal MG/DL (0.0-1.0) Urine Leukocyte Esterase 3+ (NEGATIVE) H Urine RBC 20-30 /HPF (0 - 0) H Urine WBC Tntc /HPF (0 - 0) H Urine Squamous Epithelial Cells Moderate /LPF (NONE/OCC) H Urine Bacteria Moderate /HPF (NONE) H Microbiology Date/Time Source Procedure Growth Status 08/09/18 04:30 Rectum Received Height (Feet): 5 Height (Inches): 8.00 Weight (Pounds): 120 Assessment/Plan Problem List: (1) Closed left hip fracture ICD Codes: S72.002A - Fracture of unspecified part of neck of left femur, initial encounter for closed fracture SNOMED: 436975051 Qualifiers: Qualified Codes: S72.002A - Fracture of unspecified part of neck of left femur, initial encounter for closed fracture (2) COPD (chronic obstructive pulmonary disease) ICD Codes: J44.9 - Chronic obstructive pulmonary disease, unspecified SNOMED: 22703021 (3) BPH (benign prostatic hyperplasia) ICD Codes: N40.0 - Benign prostatic hyperplasia without lower urinary tract symptoms SNOMED: 443034998 (4) Severe protein-calorie malnutrition ICD Codes: E43 - Unspecified severe protein-calorie malnutrition SNOMED: 752784863 (5) Decubitus ulcer ICD Codes: L89.90 - Pressure ulcer of unspecified site, unspecified stage SNOMED: 467349553 Assessment/Plan: Ortho evaluation pain management titrate fio2 to sat of 92% dvt prophylaxis wound care Margie Britton MD August 09, 2018 14:02
--- NOTE | 2018-08-09 14:05 | NUR ---
RD ASSESSMENT & RECOMMENDATIONS SEE CARE ACTIVITY FOR COMPLETE ASSESSMENT DAILY ESTIMATED NEEDS: Needs based on Surgery pending, underweight/ 54.5 kg 30-35 kcals/kg 5601-8892 total kcals 1-2 g protein/kg 55-109 g total protein 25-30 mL/kg 9022-5060 total fluid mLs NUTRITION DIAGNOSIS: * Increased Kcal and protein needs r/t wound healing, underweight status as evidenced by pt w/ sacral pressure ulcer pending eval, low BMI per guidelines, currently 78% of [place] Body Weight. PO DIET RECOMMENDATIONS: Liberalized REGULAR diet/ Texture as tolerated ADDITIONAL RECOMMENDATIONS: 1) Obtain calibrated bedscale wt for accurate CBW 2) H/o DM, rec A1C for eval 3) Glucerna 1 tetra pack BID in b/w meals w/ active diet order 4) Wound care: (f/up w/ eval) add BROOKE BID + MVI x1 + Vit C 250mg daily 5) With po intake >75% rec [facility] MED . .
--- NOTE | 2018-08-09 15:05 | Cardiology Report ---
APPROVED REPORT EXAM: Two-dimensional and M-mode echocardiogram with Doppler and color Doppler. INDICATION Preop evaluation M-Mode DIMENSIONS IVSd1.7 (0.7-1.1cm)Left Atrium (MM)3.3 (1.6-4.0cm) LVDd3.8 (3.5-5.6cm)Aortic Root3.7 (2.0-3.7cm) PWd1.6 (0.7-1.1cm)Aortic Cusp Exc.1.3 (1.5-2.0cm) IVSs1.7 cm LVDs3.0 (2.5-4.0cm) PWs1.8 cm Normal left ventricular chamber size. Global left ventricular hypokinesis. Distal septal and apical akinesis to extent visualized. Left ventricular ejection fraction estimated to be 30-35 %. Study quality precludes accurate assessment of regional wall motion. Moderate left ventricular hypertrophy by 2-D. No evidence of pericardial effusion. All other cardiac chamber sizes are within normal limits. Aortic valve calcification with decreased cusp excursion c/w aortic stenosis. Thickened mitral valve leaflets with normal excursion. Mitral annulus and aortic root calcification. Pulmonic valve not well visualized. Normal tricuspid valve structure. IVC at normal size with physiologic collapse. A color flow and spectral Doppler study was performed and revealed: Mild aortic regurgitation. Peak aortic valve gradient of 35 mm Hg and a mean of 20 mmHg. Aortic valve area 1.3 cm2 calculated by continuity equation suggestive of c/w moderate aortic stenosis. Mild mitral regurgitation. Mitral inflow velocities indicates possible pseudo normalization pattern implying moderately elevated left atrial pressure (Grade II). Trace tricuspid regurgitation. Tricuspid systolic velocities suggests peak right ventricular systolic pressure of 18 mmHg.
--- NOTE | 2018-08-09 15:31 | NUR ---
COUNTY HOME DEMONSTRATORSAMPLE DISPLAY PREPARER 78 Y/O MALE BIBA FROM [facility] [address] [place] TO [facility] CC:LOWER EXTREMITY INJURY SI:FRACTURE LEFT HIP VS: BP 133/59, P 98, T 97.4, RR 20, SpO2 95 WBC 13.5, BUN 30, Cr 1.6 IS:ZOFRAN 4mg IVP MORPHINE SULFATE 4mg IVP NS x1L IV ZOSYN 110ml IV MED/SURG STATUS
--- NOTE | 2018-08-09 16:53 | Consultation ---
Consult Note Consult Note asked to eval for elevated Cr Chief Complaint: Lower Extremity Injury This is a 78-year-old male with a history of UTI, malnutrition and is mostly bedbound. He presents with chief complaint of left hip pain. He had an unwitnessed fall about 3 days ago. Because of complaining of left ear pain x- ray was done. X-ray at the longterm showed impacted left intertrochanteric fracture. Patient say pain is 7 out of 10. Worse with movement. Better with rest. No nausea no vomiting. No syncope. No other complaint. Patient is a DO NOT RESUSCITATE with selective treatment. No Known Allergies (Unverified , 07/19/17) Past Medical History: No History, Except For Hx Asthma: Yes - obstructive and reflux uropathy, unspecified Hx Diabetes: Yes Hx Weakness: Yes Assessment/Plan Acute on chronic renal failure- UTI , Fever Closed left hip fracture Phimosis Hydrate Protonix monitor renal parameters per orders per ortho Jose Guadalupe Santiago MD August 09, 2018 16:53
[2018-08-09] MEDS: Piperacillin/Tazobactam 3.375 GM in NS 110 ML IVPB SCH ×2 (16:56→22:47)
[2018-08-09] MEDS: D5NS 1,000 ML IV SCH (17:01)
[2018-08-09] MEDS ORDERED: Albumin Human 5% 250ml IV ONE (17:15)
[2018-08-09] MEDS: Memantine 5 MG TAB ORAL SCH (17:35)
[2018-08-09] MEDS: Docusate 100mg cap ORAL SCH (17:35)
--- NOTE | 2018-08-09 18:15 | History and Physical Report ---
DATE OF ADMISSION: 08/09/2018 TIME SEEN: 9 a.m. CONSULTANTS: 1. Eb Alcantar M.D. 2. Margie Britton M.D. 3. Gino James M.D. 4. Kolby Brady M.D. CHIEF COMPLAINT: Left hip fracture status post fall. BRIEF HISTORY: This is a 78-year-old male from [facility], presented with above-mentioned diagnosis, came to [place] [facility], diagnosed with the above, also has fever and some phimosis. The patient was admitted to medical floor for further treatment. Currently, calm, sleeping in bed, refusing to answer questions. REVIEW OF SYSTEMS: Unavailable. PAST MEDICAL HISTORY: Decubitus, phimosis, COPD, BPH, malnutrition. PAST SURGICAL HISTORY: Unknown. ALLERGIES: Denies. SOCIAL HISTORY: Unable to obtain secondary to the patient's condition. OBJECTIVE: GENERAL: Sleeping in bed, refusing to answer questions. VITAL SIGNS: Temperature 98 degrees, pulse 98, respiratory rate 16, blood pressure 132/86. CARDIOVASCULAR: No murmur. LUNGS: Distant and clear. ABDOMEN: Bowel sounds positive. Nontender. Nondistended. EXTREMITIES: No cyanosis, clubbing, or edema. NEUROLOGIC: The patient flaccid in bed, does not want to follow directions. LABORATORY AND DIAGNOSTIC DATA: White count 13.5, otherwise CBC is normal. BUN and creatinine 30/1.6 glucose 160. INR is 1.0. Urinalysis show 3+ leukocyte esterase. MEDICATIONS: Zosyn, Tylenol, morphine, Zofran. ASSESSMENT: 1. Left hip fracture status post fall. 2. Urinary tract infection. 3. Fever. 4. Renal insufficiency. 5. Phimosis. 6. Decubitus ulcer. 7. COPD. 8. BPH. 9. Malnutrition. PLAN: 1. Wound care. 2. Antibiotics per Infectious Diseases. 3. Ortho followup. 4. Resume home medications. 5. CBC and BMP in the morning. 6. PT and dietary evaluation. Samir Cramer D.O. DR: Laya JOB#: [id number] CC:
--- NOTE | 2018-08-09 18:26 | Consultation ---
Consult Note Consult Note # [id number] Gino James MD August 09, 2018 18:26
--- NOTE | 2018-08-09 19:47 | NUR ---
HAND-OFF: Report given to PAMELA Quezada.
--- NOTE | 2018-08-09 20:00 | NUR ---
NURSE NOTES: Pt is in bed, awake and verbal. No acute distress noted. Pt has left hip fracture. Pt refused to sign consent for ORIF stating he needs to talk to the doctor first. YEMI Mckeon was called by last shift nurse PAMELA Hoffmann to inform, message was left.Pt is currently NPO. D5 NS is running. Pt is on Fall precaution. Bed locked low in position,side rails up and call light within reach. Bed alarm on. Fall precaution implemented.
[2018-08-09] MEDS: Tamsulosin 0.4mg cap ORAL SCH (22:46)
[2018-08-09] MEDS: Pantoprazole Inj IVP SCH (22:47)
[2018-08-10] VITALS: BP 110/59
--- NOTE | 2018-08-10 00:30 | Consultation ---
DATE OF CONSULTATION: 08/09/2018 HISTORY OF PRESENT ILLNESS: The patient is a pleasant 78-year-old gentleman who had a fall and complained of left hip pain. He was taken to [facility] ER where he was found to have a left hip intertrochanteric fracture. Orthopedic consult has been called for surgical intervention. PAST MEDICAL HISTORY: History of diabetes and asthma. PAST SURGICAL HISTORY: None. CURRENT MEDICATIONS: Please see chart. ALLERGIES: None. SOCIAL HISTORY: The patient is a [facility] resident. He indicates that he ambulates independently. REVIEW OF SYSTEMS: The patient complains of hip pain. PHYSICAL EXAMINATION: GENERAL: He is alert and appears comfortable. EXTREMITIES: He has left hip pain and tenderness without bruising, skin breakdown, or signs of infection. IMAGING: X-rays are reviewed. There is a left hip intertrochanteric fracture. IMPRESSION: Left hip intertrochanteric fracture. DISCUSSION: At this time, I discussed with the patient my findings. I would recommend we go forward with left hip open reduction, internal fixation with Gamma nail. He would like to get that done. He understands the nature of the surgery including risks of surgery, fracture, risk of infection, bleeding, neurovascular injury as well as continued pain, hardware failure, need for revision surgery down the line. He would like to get this done. He has also been diagnosed with urinary tract infection and will require antibiotic management and preoperative medical clearance. A 2D echo will be ordered. We will plan to get surgery done Tuesday morning to allow for time of medical clearance. The patient understands and agrees. Eb Alcantar M.D. Rakesh Richard DR: Yuni JOB#: [id number] CC:
--- NOTE | 2018-08-10 00:45 | Consultation ---
DATE OF CONSULTATION: 08/09/2018 INFECTIOUS DISEASE CONSULTATION CONSULTING PHYSICIAN: Gino James M.D. REFERRING PHYSICIAN: Samir Cramer D.O. REASON FOR CONSULTATION: Evaluation of the patient for fever. HISTORY OF PRESENT ILLNESS: The patient is a 78-year-old male with multiple medical problems, who was admitted to this medical center after the patient had a fall and left hip fracture. The patient has a reportedly low-grade fever. Infectious Disease consultation has been requested for further evaluation of the patient and antibiotic management. The patient is confused and not able to provide detailed information. Information was gathered through the chart and speaking to staff. PAST MEDICAL HISTORY: 1. BPH. 2. Chronic obstructive pulmonary disease. 3. Diabetes. 4. History of chronic left shoulder dislocation. 5. Dementia. MEDICATIONS: The patient is on intravenous Zosyn. ALLERGIES: No known drug allergies. SOCIAL HISTORY: The patient lives in a snf. FAMILY HISTORY: Unavailable. REVIEW OF SYSTEMS: Unobtainable. PHYSICAL EXAMINATION: VITAL SIGNS: Temperature 100.1, pulse 86, respiratory rate 18, and blood pressure 102/95. HEENT: No pale conjunctivae. No icterus. NECK: No lymphadenopathy. CHEST: Clear. HEART: S1 and S2. ABDOMEN: Soft. EXTREMITIES: No cyanosis or cellulitis. NEUROLOGIC: Awake and confused. LABORATORY AND DIAGNOSTIC DATA: White blood cells 13, hemoglobin 14, and platelets 429,000. UA shows too numerous to count white blood cells and 20 to 30 red blood cells. BUN 30 and creatinine 1.6. Urine Peña catheter in place. Chest x-ray, no evidence of pneumonia. ASSESSMENT: The patient is a 78-year-old male with, 1. Left hip intertrochanteric fracture. 2. Low-grade fever (secondary to acute trauma versus urinary tract infection). 3. Rule out probable urinary tract infection. PLAN: 1. We will continue the patient on IV Zosyn. 2. Monitor CBC. 3. Monitor BMP. 4. Monitor cultures (blood and urine). 5. Monitor chest x-ray. 6. Based on the patient's clinical course and labs, we will do further recommendation. Thank you, Dr. Cramer, for allowing me to participate in the care of this patient. I will follow the patient with you during this hospitalization. Gino Hortencia James DR: RICARDO JOB#: [id number] CC:
--- NOTE | 2018-08-10 03:36 | NUR ---
NURSE NOTES: Pt is in bed, awake. No acute distress noted.
[2018-08-10 04:00] VITALS: BP 124/54
[2018-08-10 05:33] LABS: BASOPHILS % (AUTO) 1.5 % (0.0-2.0); EOSINOPHILS % (AUTO) 1.7 % (0.0-3.0); HEMATOCRIT 34.9 % (42.0-52.0); HEMOGLOBIN 11.6 G/DL (14.2-18.0); LYMPHOCYTES % (AUTO) 12.1 % (20.0-45.0); MEAN CORPUSCULAR VOLUME 84 FL (80-99); MONOCYTES % (AUTO) 8.9 % (1.0-10.0); NEUTROPHILS % (AUTO) 75.7 % (45.0-75.0); PLATELET COUNT 371 K/UL (150-450); RED BLOOD COUNT 4.16 M/UL (4.70-6.10); RED CELL DISTRIBUTION WIDTH 13.9 % (11.6-14.8); WHITE BLOOD COUNT 9.2 K/UL (4.8-10.8)
[2018-08-10] MEDS: D5NS 1,000 ML IV SCH ×2 (05:53→18:41)
[2018-08-10] MEDS: Piperacillin/Tazobactam 3.375 GM in NS 110 ML IVPB SCH ×3 (05:53→23:21)
[2018-08-10 06:06] LABS: ALANINE AMINOTRANSFERASE 6 U/L (12-78); ALBUMIN 2.7 G/DL (3.4-5.0); ALBUMIN/GLOBULIN RATIO 0.5 (1.0-2.7); ALKALINE PHOSPHATASE 55 U/L (46-116); ANION GAP 9 mmol/L (5-15); ASPARTATE AMINO TRANSFERASE 11 U/L (15-37); BILIRUBIN,TOTAL 0.6 MG/DL (0.2-1.0); BLOOD UREA NITROGEN 20 mg/dL (7-18); CARBON DIOXIDE 26 MMOL/L (21-32); CHLORIDE 105 MMOL/L (98-107); CHOLESTEROL 220 MG/DL (< 200); CREATININE 1.5 MG/DL (0.55-1.30); HDL CHOLESTEROL 30 MG/DL (40-60); PHOSPHORUS 2.6 MG/DL (2.5-4.9); SODIUM 140 MMOL/L (136-145); TRIGLYCERIDES 234 MG/DL (30-150)
[2018-08-10 06:29] LABS: CREATINE KINASE 106 U/L (26-308); GAMMA GLUTAMYL TRANSPEPTIDASE 13 U/L (5-85)
--- NOTE | 2018-08-10 07:05 | NUR ---
NURSE NOTES: jameel Irwin spoke to patient regarding the surgery tomorrow. Pt signed the consent. Pt is to be NPO after midnight today.
--- NOTE | 2018-08-10 07:06 | NUR ---
HAND-OFF: Report given to Shun Lincoln RN.
--- NOTE | 2018-08-10 07:44 | NUR ---
NURSE NOTES: Patient alert x4, on room air, no sign of shortness of breath, no sign of distress; no sign of chest pain; IV Left wrist fluid running; bed at lowest position, side rails up x2, breaks engaged, bed alarm on; call light within reach; will keep monitoring.
[2018-08-10 08:00] VITALS: BP 147/65
[2018-08-10] MEDS: Docusate 100mg cap ORAL SCH ×3 (08:17→17:14)
[2018-08-10] MEDS: Pantoprazole Inj IVP SCH ×2 (08:17→23:21)
[2018-08-10] MEDS: Memantine 5 MG TAB ORAL SCH ×2 (08:17→17:14)
[2018-08-10 12:00] VITALS: BP 136/69
--- NOTE | 2018-08-10 12:44 | Pulmonology Progress Note ---
Assessment/Plan Problems: (1) Closed left hip fracture (2) COPD (chronic obstructive pulmonary disease) (3) BPH (benign prostatic hyperplasia) (4) Severe protein-calorie malnutrition (5) Decubitus ulcer Assessment/Plan Ortho evaluation appreciated surgery scheduled for am pain management titrate fio2 to sat of 92% dvt prophylaxis wound care Subjective ROS Limited/Unobtainable: No Constitutional: Reports: no symptoms HEENT: Repors: no symptoms Allergies: Coded Allergies: No Known Allergies (Unverified , 07/19/17) Objective Last 24 Hour Vital Signs Date Time Temp Pulse Resp B/P (MAP) Pulse Ox O2 Delivery O2 Flow Rate FiO2 08/10/18 09:00 Room Air 08/10/18 08:00 98.9 109 20 147/65 (92) 96 08/10/18 04:00 99.2 99 17 124/54 (77) 96 08/10/18 00:00 99.1 108 17 110/59 (76) 96 08/09/18 21:00 Room Air 08/09/18 20:00 97.9 110 18 140/65 (90) 95 08/09/18 16:00 97.2 95 18 122/56 (78) 95 Intake and Output 08/09/18 08/10/18 18:59 06:59 Intake Total 55.0 ml 1332.5 ml Output Total 100 ml 1000 ml Balance -45.0 ml 332.5 ml Intake Oral 240 ml IV Total 55.0 ml 1092.5 ml Output Urine Total 100 ml 1000 ml General Appearance: cachetic HEENT: normocephalic, atraumatic Respiratory/Chest: chest wall non-tender, lungs clear Cardiovascular: normal peripheral pulses, normal rate Abdomen: normal bowel sounds, no organomegaly Extremities: no cyanosis Skin: no rash Microbiology Date/Time Source Procedure Growth Status 08/09/18 02:22 Blood Blood Culture - Preliminary NO GROWTH AFTER 24 HOURS Resulted 08/09/18 02:10 Blood Blood Culture - Preliminary NO GROWTH AFTER 24 HOURS Resulted 08/09/18 05:00 Urine,Clean Catch Urine Culture - Preliminary Gram Negative Jordon Resulted 08/09/18 04:30 Rectum Received Laboratory Tests 08/10/18 05:22: White Blood Count 9.2, Red Blood Count 4.16L, Hemoglobin 11.6L, Hematocrit 34.9L , Mean Corpuscular Volume 84, Mean Corpuscular Hemoglobin 28.0, Mean Corpuscular Hemoglobin Concent 33.3, Red Cell Distribution Width 13.9, Platelet Count 371, Mean Platelet Volume 6.1L, Neutrophils (%) (Auto) 75.7H, Lymphocytes (%) (Auto) 12.1L, Monocytes (%) (Auto) 8.9, Eosinophils (%) (Auto) 1.7, Basophils (%) (Auto) 1.5, Sodium Level 140, Potassium Level 4.0, Chloride Level 105, Carbon Dioxide Level 26, Anion Gap 9, Blood Urea Nitrogen 20H, Creatinine 1.5H, Estimat Glomerular Filtration Rate , Glucose Level 145H, Uric Acid 3.5, Calcium Level 9.0, Phosphorus Level 2.6, Magnesium Level 2.0, Total Bilirubin 0.6, Gamma Glutamyl Transpeptidase 13, Aspartate Amino Transf (AST/SGOT) 11L, Alanine Aminotransferase (ALT/SGPT) 6L, Alkaline Phosphatase 55, Total Creatine Kinase 106, Troponin I 0.000, C-Reactive Protein, Quantitative 22.5H, Pro-B- Type Natriuretic Peptide 5041H, Total Protein 7.7, Albumin 2.7L, Globulin 5.0, Albumin/Globulin Ratio 0.5L, Triglycerides Level 234H, Cholesterol Level 220H, LDL Cholesterol 134H, HDL Cholesterol 30L, Cholesterol/HDL Ratio 7.3H, Vitamin B12 Level 420, Folate 22.7, Thyroid Stimulating Hormone (TSH) 1.894, Cortisol AM Sample 15.8 Current Medications Medications (Trade) Dose Ordered Sig/Nicole Route PRN Reason Start Time Stop Time Status Last Admin Dose Admin Acetaminophen (Tylenol) 650 mg Q4H PRN ORAL Mild Pain/Temp > 100.5 08/09/18 14:00 09/08/18 13:59 Acetaminophen/ Hydrocodone Bitart ([place] 5/325) 1 tab Q4H PRN ORAL Moderate Pain (Pain Scale 4-6) 08/09/18 14:00 08/16/18 13:59 Dextrose/Sodium Chloride 1,000 ml @ 75 mls/hr [id number] IV 08/09/18 17:00 09/08/18 16:59 08/10/18 05:53 Docusate Sodium (Colace) 100 mg THREE TIMES A DAY ORAL 08/09/18 18:00 09/08/18 17:59 08/10/18 08:17 Memantine (Namenda) 5 mg TWICE A DAY ORAL 08/09/18 18:00 09/08/18 17:59 08/10/18 08:17 Pantoprazole (Protonix) 40 mg EVERY 12 HOURS IVP 08/09/18 21:00 09/08/18 20:59 08/10/18 08:17 Piperacillin Sod/ Tazobactam Sod 3.375 gm/Sodium Chloride 110 ml @ 27.5 mls/hr EVERY 8 HOURS IVPB 08/09/18 15:30 08/14/18 15:29 08/10/18 05:53 Polyethylene Glycol (Miralax) 17 gm DAILYPRN PRN ORAL Constipation 08/09/18 14:00 09/08/18 13:59 Tamsulosin HCl (Flomax) 0.4 mg BEDTIME ORAL 08/09/18 21:00 09/08/18 20:59 08/09/18 22:46 Temazepam (Restoril) 15 mg HSPRN PRN ORAL Insomnia 08/09/18 17:00 08/16/18 16:59 Margie Britton MD August 10, 2018 12:44
--- NOTE | 2018-08-10 13:33 | Infectious Diseases Prog Note ---
Assessment/Plan Assessment/Plan ASSESSMENT: The patient is a 78-year-old male with, Left hip intertrochanteric fracture. Low-grade fever (secondary to acute trauma versus urinary tract infection) Rule out probable urinary tract infection UCx: 50 K GNR BPH Chronic obstructive pulmonary disease Diabetes History of chronic left shoulder dislocation Dementia. PLAN: Cont the patient on IV Zosyn d# 2 Monitor CBC Monitor BMP. Monitor cultures (blood and urine). Monitor chest x-ray Ortho fup Subjective Allergies: Coded Allergies: No Known Allergies (Unverified , 07/19/17) Subjective comfortable Objective Vital Signs Last 24 Hour Vital Signs Date Time Temp Pulse Resp B/P (MAP) Pulse Ox O2 Delivery O2 Flow Rate FiO2 08/10/18 12:00 97.8 81 17 136/69 (91) 98 08/10/18 09:00 Room Air 08/10/18 08:00 98.9 109 20 147/65 (92) 96 08/10/18 04:00 99.2 99 17 124/54 (77) 96 08/10/18 00:00 99.1 108 17 110/59 (76) 96 08/09/18 21:00 Room Air 08/09/18 20:00 97.9 110 18 140/65 (90) 95 08/09/18 16:00 97.2 95 18 122/56 (78) 95 Height (Feet): 5 Height (Inches): 8.00 Weight (Pounds): 120 HEENT: anicteric Respiratory/Chest: no accessory muscle use Cardiovascular: no gallop/murmur Abdomen: no organomegaly Microbiology Date/Time Source Procedure Growth Status 08/09/18 02:22 Blood Blood Culture - Preliminary NO GROWTH AFTER 24 HOURS Resulted 08/09/18 02:10 Blood Blood Culture - Preliminary NO GROWTH AFTER 24 HOURS Resulted 08/09/18 05:00 Urine,Clean Catch Urine Culture - Preliminary Gram Negative Jordon Resulted 08/09/18 04:30 Rectum Received Laboratory Tests Test 08/10/18 05:22 White Blood Count 9.2 K/UL (4.8-10.8) Red Blood Count 4.16 M/UL (4.70-6.10) L Hemoglobin 11.6 G/DL (14.2-18.0) L Hematocrit 34.9 % (42.0-52.0) L Mean Corpuscular Volume 84 FL (80-99) Mean Corpuscular Hemoglobin 28.0 PG (27.0-31.0) Mean Corpuscular Hemoglobin Concent 33.3 G/DL (32.0-36.0) Red Cell Distribution Width 13.9 % (11.6-14.8) Platelet Count 371 K/UL (150-450) Mean Platelet Volume 6.1 FL (6.5-10.1) L Neutrophils (%) (Auto) 75.7 % (45.0-75.0) H Lymphocytes (%) (Auto) 12.1 % (20.0-45.0) L Monocytes (%) (Auto) 8.9 % (1.0-10.0) Eosinophils (%) (Auto) 1.7 % (0.0-3.0) Basophils (%) (Auto) 1.5 % (0.0-2.0) Sodium Level 140 MMOL/L (136-145) Potassium Level 4.0 MMOL/L (3.5-5.1) Chloride Level 105 MMOL/L (98-107) Carbon Dioxide Level 26 MMOL/L (21-32) Anion Gap 9 mmol/L (5-15) Blood Urea Nitrogen 20 mg/dL (7-18) H Creatinine 1.5 MG/DL (0.55-1.30) H Estimat Glomerular Filtration Rate mL/min (>60) Glucose Level 145 MG/DL (74-106) H Uric Acid 3.5 MG/DL (2.6-7.2) Calcium Level 9.0 MG/DL (8.5-10.1) Phosphorus Level 2.6 MG/DL (2.5-4.9) Magnesium Level 2.0 MG/DL (1.8-2.4) Total Bilirubin 0.6 MG/DL (0.2-1.0) Gamma Glutamyl Transpeptidase 13 U/L (5-85) Aspartate Amino Transf (AST/SGOT) 11 U/L (15-37) L Alanine Aminotransferase (ALT/SGPT) 6 U/L (12-78) L Alkaline Phosphatase 55 U/L (46-116) Total Creatine Kinase 106 U/L (26-308) Troponin I 0.000 ng/mL (0.000-0.056) C-Reactive Protein, Quantitative 22.5 mg/dL (0.00-0.90) H Pro-B-Type Natriuretic Peptide 5041 pg/mL (0-125) H Total Protein 7.7 G/DL (6.4-8.2) Albumin 2.7 G/DL (3.4-5.0) L Globulin 5.0 g/dL Albumin/Globulin Ratio 0.5 (1.0-2.7) L Triglycerides Level 234 MG/DL (30-150) H Cholesterol Level 220 MG/DL (< 200) H LDL Cholesterol 134 mg/dL (<100) H HDL Cholesterol 30 MG/DL (40-60) L Cholesterol/HDL Ratio 7.3 (3.3-4.4) H Vitamin B12 Level 420 PG/ML (193-986) Folate 22.7 NG/ML (8.6-58.9) Thyroid Stimulating Hormone (TSH) 1.894 uiU/mL (0.358-3.740) Cortisol AM Sample 15.8 UG/DL Current Medications Medications (Trade) Dose Ordered Sig/Nicole Route PRN Reason Start Time Stop Time Status Last Admin Dose Admin Acetaminophen (Tylenol) 650 mg Q4H PRN ORAL Mild Pain/Temp > 100.5 08/09/18 14:00 09/08/18 13:59 Acetaminophen/ Hydrocodone Bitart ([place] 5/325) 1 tab Q4H PRN ORAL Moderate Pain (Pain Scale 4-6) 08/09/18 14:00 08/16/18 13:59 Dextrose/Sodium Chloride 1,000 ml @ 75 mls/hr [id number] IV 08/09/18 17:00 09/08/18 16:59 08/10/18 05:53 Docusate Sodium (Colace) 100 mg THREE TIMES A DAY ORAL 08/09/18 18:00 09/08/18 17:59 08/10/18 13:23 Memantine (Namenda) 5 mg TWICE A DAY ORAL 08/09/18 18:00 09/08/18 17:59 08/10/18 08:17 Pantoprazole (Protonix) 40 mg EVERY 12 HOURS IVP 08/09/18 21:00 09/08/18 20:59 08/10/18 08:17 Piperacillin Sod/ Tazobactam Sod 3.375 gm/Sodium Chloride 110 ml @ 27.5 mls/hr EVERY 8 HOURS IVPB 08/09/18 15:30 08/14/18 15:29 08/10/18 13:24 Polyethylene Glycol (Miralax) 17 gm DAILYPRN PRN ORAL Constipation 08/09/18 14:00 09/08/18 13:59 Tamsulosin HCl (Flomax) 0.4 mg BEDTIME ORAL 08/09/18 21:00 09/08/18 20:59 08/09/18 22:46 Temazepam (Restoril) 15 mg HSPRN PRN ORAL Insomnia 08/09/18 17:00 08/16/18 16:59 Gino James MD August 10, 2018 13:33
--- NOTE | 2018-08-10 13:47 | Consultation ---
History of Present Illness General Date patient seen: August 10, 2018 Reason for Hospitalization: Lower Extremity Injury Present Illness HPI This is a pleasant 78 year old male with multiple medical comorbidities who is a [facility] resident that is not very ambulatory that presented with hip pain. Was noted to have ground level fall a few days ago and after work up was noted to have hip fx requiring treatment. Admitted for [facility] [place] for [place] and management. On admission noted to have multiple wounds requiring care and management. Surgery called to evaluate and assist with care. Seen by ortho surgery and planned for pinning this tuesday if medically cleared. work up ongoing. patient seen, chart reviewed, patient examined. currently with pain in ear and hip. tolerating diet and states he is hungry Allergies: Coded Allergies: No Known Allergies (Unverified , 07/19/17) Medication History Scheduled Ascorbic Acid* (Vitamin C*), 500 MG ORAL DAILY, (Reported) Docusate Sodium* (Docusate Sodium*), 100 MG ORAL TWICE A DAY, (Reported) Heparin Sod (Porcine) (Heparin Sodium*), 5,000 UNITS SUBQ EVERY 12 HOURS, ( Reported) Insulin Aspart (Novolog), 100 UNIT SQ AC+HS, (Reported) Memantine Hcl* (Namenda*), 5 MG ORAL TWICE A DAY, (Reported) Multivitamin With Minerals (Multivitamins With Minerals*), 1 TAB ORAL DAILY, ( Reported) Tamsulosin Hcl (Tamsulosin Hcl*), 0.4 MG ORAL BEDTIME, (Reported) Trimethoprim/Sulfamethoxazole (Bactrim Ds Tablet), 1 TAB ORAL TWICE A DAY, ( Reported) Trimethoprim/Sulfamethoxazole 160/800* (Bactrim Ds Tablet*), 1 TAB ORAL Q12H Zinc Sulfate (Zinc Sulfate*), 220 MG ORAL DAILY, (Reported) Scheduled PRN Acetaminophen (Acetaminophen), 650 MG ORAL Q4HR PRN for Mild Pain/Temp > 100.5, (Reported) Acetaminophen* (Acetaminophen 325MG Tablet*), 650 MG ORAL Q4H PRN for Fever/ Headache/Mild Pain, (Reported) Hydrocodone Bit/Acetaminophen 5-325* ([place] 5-325 Tablet*), 1 TAB ORAL Q4H PRN for Moderate Pain (Pain Scale 4-6), (Reported) Hydrocodone Bit/Acetaminophen 5-325* ([place] 5-325*), 1 TAB ORAL Q4H PRN for For Pain, (Reported) Ipratropium [place] 0.5MG/2.5ML (Ipratropium [place] 0.5MG/2.5ML), 0.5 MG HHN Q4H PRN for Shortness of Breath, (Reported) Melatonin (Melatonin), 3 MG PO for Insomnia, (Reported) Ondansetron* (Zofran*), 4 MG ORAL Q6H PRN for Nausea & Vomiting, (Reported) Phenazopyridine Hcl* (Pyridium*), 100 MG ORAL DAILY PRN for dysuria, (Reported) Polyethylene Glycol 3350* (Polyethylene Glycol 3350*), 17 GM ORAL DAILY PRN for Constipation, (Reported) Temazepam* (Restoril*), 15 MG ORAL BEDTIME PRN for Insomnia, (Reported) Patient History Limited by: medical condition History Provided By: Medical Record Healthcare decision maker Resuscitation status Advanced Directive on File Past Medical/Surgical History Past Medical/Surgical History: (1) Anemia (2) MDRO (multiple drug resistant organisms) resistance (3) Decubitus ulcer, heel, left, unstageable (4) ATN (acute tubular necrosis) (5) Sepsis (6) UTI (urinary tract infection) (7) COPD (chronic obstructive pulmonary disease) (8) Balanoposthitis (9) Severe protein-calorie malnutrition (10) BPH (benign prostatic hyperplasia) (11) Phimosis (12) Fever (13) Decubitus ulcer (14) Closed left hip fracture Review of Systems Review of Symptoms General ROS: no weight loss or fever Psychological ROS: no depression or mood changes, no memory loss Ophthalmic ROS: no visual changes or eye irritation ENT ROS: no nasal congestion, hearing loss, dizziness Allergy and Immunology ROS: no allergic symptoms or urticaria Hematological and Lymphatic ROS: no swollen glands, unusual bleeding or bruising Endocrine ROS: no polyuria, polydipsia, weight changes, temperature intolerance Respiratory ROS: no cough, shortness of breath, or wheezing Cardiovascular ROS: no chest pain or dyspnea on exertion Gastrointestinal ROS: denies abdominal pain, no bright red blood in stool. Musculoskeletal ROS: no myalgias or arthralgias Neurological ROS: no TIA or stroke symptoms Dermatological ROS: no new or changing skin lesions, rashes or pruritis Physical Exam Physical Exam General appearance: alert, cooperative, no distress, appears stated age Head: Normocephalic, without obvious abnormality, atraumatic Eyes: conjunctivae/corneas clear. PERRL, EOM's intact. Fundi benign Throat: Lips, mucosa, and tongue normal. Teeth and gums normal Neck: supple, symmetrical, trachea midline, no adenopathy, thyroid: not enlarged, symmetric, no tenderness/mass/nodules, no carotid bruit and no JVD Lungs: clear to auscultation bilaterally Heart: regular rate and rhythm, S1, S2 normal, no murmur, click, rub or gallop Abdomen: soft, non-tender. Bowel sounds normal. No masses, no organomegaly Extremities: extremities normal, atraumatic, no cyanosis or edema Pulses: 2+ and symmetric Skin: Skin color, texture, turgor normal. No rashes or lesions Neurologic: Grossly normal Last 24 Hour Vital Signs Date Time Temp Pulse Resp B/P (MAP) Pulse Ox O2 Delivery O2 Flow Rate FiO2 08/10/18 12:00 97.8 81 17 136/69 (91) 98 08/10/18 09:00 Room Air 08/10/18 08:00 98.9 109 20 147/65 (92) 96 08/10/18 04:00 99.2 99 17 124/54 (77) 96 08/10/18 00:00 99.1 108 17 110/59 (76) 96 08/09/18 21:00 Room Air 08/09/18 20:00 97.9 110 18 140/65 (90) 95 08/09/18 16:00 97.2 95 18 122/56 (78) 95 Intake and Output 08/09/18 08/10/18 18:59 06:59 Intake Total 55.0 ml 1332.5 ml Output Total 100 ml 1000 ml Balance -45.0 ml 332.5 ml Intake Oral 240 ml IV Total 55.0 ml 1092.5 ml Output Urine Total 100 ml 1000 ml Laboratory Tests Test 08/10/18 05:22 White Blood Count 9.2 K/UL (4.8-10.8) Red Blood Count 4.16 M/UL (4.70-6.10) L Hemoglobin 11.6 G/DL (14.2-18.0) L Hematocrit 34.9 % (42.0-52.0) L Mean Corpuscular Volume 84 FL (80-99) Mean Corpuscular Hemoglobin 28.0 PG (27.0-31.0) Mean Corpuscular Hemoglobin Concent 33.3 G/DL (32.0-36.0) Red Cell Distribution Width 13.9 % (11.6-14.8) Platelet Count 371 K/UL (150-450) Mean Platelet Volume 6.1 FL (6.5-10.1) L Neutrophils (%) (Auto) 75.7 % (45.0-75.0) H Lymphocytes (%) (Auto) 12.1 % (20.0-45.0) L Monocytes (%) (Auto) 8.9 % (1.0-10.0) Eosinophils (%) (Auto) 1.7 % (0.0-3.0) Basophils (%) (Auto) 1.5 % (0.0-2.0) Sodium Level 140 MMOL/L (136-145) Potassium Level 4.0 MMOL/L (3.5-5.1) Chloride Level 105 MMOL/L (98-107) Carbon Dioxide Level 26 MMOL/L (21-32) Anion Gap 9 mmol/L (5-15) Blood Urea Nitrogen 20 mg/dL (7-18) H Creatinine 1.5 MG/DL (0.55-1.30) H Estimat Glomerular Filtration Rate mL/min (>60) Glucose Level 145 MG/DL (74-106) H Uric Acid 3.5 MG/DL (2.6-7.2) Calcium Level 9.0 MG/DL (8.5-10.1) Phosphorus Level 2.6 MG/DL (2.5-4.9) Magnesium Level 2.0 MG/DL (1.8-2.4) Total Bilirubin 0.6 MG/DL (0.2-1.0) Gamma Glutamyl Transpeptidase 13 U/L (5-85) Aspartate Amino Transf (AST/SGOT) 11 U/L (15-37) L Alanine Aminotransferase (ALT/SGPT) 6 U/L (12-78) L Alkaline Phosphatase 55 U/L (46-116) Total Creatine Kinase 106 U/L (26-308) Troponin I 0.000 ng/mL (0.000-0.056) C-Reactive Protein, Quantitative 22.5 mg/dL (0.00-0.90) H Pro-B-Type Natriuretic Peptide 5041 pg/mL (0-125) H Total Protein 7.7 G/DL (6.4-8.2) Albumin 2.7 G/DL (3.4-5.0) L Globulin 5.0 g/dL Albumin/Globulin Ratio 0.5 (1.0-2.7) L Triglycerides Level 234 MG/DL (30-150) H Cholesterol Level 220 MG/DL (< 200) H LDL Cholesterol 134 mg/dL (<100) H HDL Cholesterol 30 MG/DL (40-60) L Cholesterol/HDL Ratio 7.3 (3.3-4.4) H Vitamin B12 Level 420 PG/ML (193-986) Folate 22.7 NG/ML (8.6-58.9) Thyroid Stimulating Hormone (TSH) 1.894 uiU/mL (0.358-3.740) Cortisol AM Sample 15.8 UG/DL Height (Feet): 5 Height (Inches): 8.00 Weight (Pounds): 120 Medications Current Medications Medications (Trade) Dose Ordered Sig/Nicole Route PRN Reason Start Time Stop Time Status Last Admin Dose Admin Acetaminophen (Tylenol) 650 mg Q4H PRN ORAL Mild Pain/Temp > 100.5 08/09/18 14:00 09/08/18 13:59 Acetaminophen/ Hydrocodone Bitart ([place] 5/325) 1 tab Q4H PRN ORAL Moderate Pain (Pain Scale 4-6) 08/09/18 14:00 08/16/18 13:59 Dextrose/Sodium Chloride 1,000 ml @ 75 mls/hr [id number] IV 08/09/18 17:00 09/08/18 16:59 08/10/18 05:53 Docusate Sodium (Colace) 100 mg THREE TIMES A DAY ORAL 08/09/18 18:00 09/08/18 17:59 08/10/18 13:23 Memantine (Namenda) 5 mg TWICE A DAY ORAL 08/09/18 18:00 09/08/18 17:59 08/10/18 08:17 Pantoprazole (Protonix) 40 mg EVERY 12 HOURS IVP 08/09/18 21:00 09/08/18 20:59 08/10/18 08:17 Piperacillin Sod/ Tazobactam Sod 3.375 gm/Sodium Chloride 110 ml @ 27.5 mls/hr EVERY 8 HOURS IVPB 08/09/18 15:30 08/14/18 15:29 08/10/18 13:24 Polyethylene Glycol (Miralax) 17 gm DAILYPRN PRN ORAL Constipation 08/09/18 14:00 09/08/18 13:59 Tamsulosin HCl (Flomax) 0.4 mg BEDTIME ORAL 08/09/18 21:00 09/08/18 20:59 08/09/18 22:46 Temazepam (Restoril) 15 mg HSPRN PRN ORAL Insomnia 08/09/18 17:00 08/16/18 16:59 Assessment/Plan Problem List: (1) Anemia ICD Codes: D64.9 - Anemia, unspecified SNOMED: 430588974 (2) MDRO (multiple drug resistant organisms) resistance ICD Codes: Z16.35 - Resistance to multiple antimicrobial drugs SNOMED: 289343120 (3) ATN (acute tubular necrosis) ICD Codes: N17.0 - Acute kidney failure with tubular necrosis SNOMED: 94977737 (4) Decubitus ulcer, heel, left, unstageable ICD Codes: L89.620 - Pressure ulcer of left heel, unstageable SNOMED: 155135044 (5) Sepsis ICD Codes: A41.9 - Sepsis, unspecified organism SNOMED: 97905718 (6) UTI (urinary tract infection) ICD Codes: N39.0 - Urinary tract infection, site not specified SNOMED: 97133756 (7) COPD (chronic obstructive pulmonary disease) ICD Codes: J44.9 - Chronic obstructive pulmonary disease, unspecified SNOMED: 06520374 (8) Balanoposthitis ICD Codes: N47.6 - Balanoposthitis SNOMED: 59488801 (9) Severe protein-calorie malnutrition ICD Codes: E43 - Unspecified severe protein-calorie malnutrition SNOMED: 898111322 (10) BPH (benign prostatic hyperplasia) ICD Codes: N40.0 - Benign prostatic hyperplasia without lower urinary tract symptoms SNOMED: 919734194 (11) Phimosis ICD Codes: N47.1 - Phimosis SNOMED: 304627717 (12) Fever ICD Codes: R50.9 - Fever, unspecified SNOMED: 037152617 Qualifiers: Qualified Codes: R50.9 - Fever, unspecified (13) Decubitus ulcer Assessment & Plan: Patient presents with multiple wounds on admission. Right heel with DTI Sacral redness with seemingly healing prior wound/DTI left hip wound healing Tx Plan: Apply foam dressings to bilateral heels q3 days heel protectors off load pressure with pillow turn q2h air soft mattress encourage patient to mobilize when possible ICD Codes: L89.90 - Pressure ulcer of unspecified site, unspecified stage SNOMED: 253558636 (14) Closed left hip fracture Assessment & Plan: As per Ortho plan for possible pinning tuesday pre op clearance ICD Codes: S72.002A - Fracture of unspecified part of neck of left femur, initial encounter for closed fracture SNOMED: 890743475 Qualifiers: Qualified Codes: S72.002A - Fracture of unspecified part of neck of left femur, initial encounter for closed fracture Bentley Enrique August 10, 2018 13:47
--- NOTE | 2018-08-10 13:50 | General Progress Note ---
Assessment/Plan Problem List: (1) UTI (urinary tract infection) ICD Codes: N39.0 - Urinary tract infection, site not specified SNOMED: 46591609 (2) Decubitus ulcer, heel, left, unstageable ICD Codes: L89.620 - Pressure ulcer of left heel, unstageable SNOMED: 309883768 (3) Phimosis ICD Codes: N47.1 - Phimosis SNOMED: 063263318 (4) Fever ICD Codes: R50.9 - Fever, unspecified SNOMED: 338049648 Qualifiers: Qualified Codes: R50.9 - Fever, unspecified (5) Closed left hip fracture ICD Codes: S72.002A - Fracture of unspecified part of neck of left femur, initial encounter for closed fracture SNOMED: 349622623 Qualifiers: Qualified Codes: S72.002A - Fracture of unspecified part of neck of left femur, initial encounter for closed fracture (6) COPD (chronic obstructive pulmonary disease) ICD Codes: J44.9 - Chronic obstructive pulmonary disease, unspecified SNOMED: 10900937 Status: unchanged Assessment/Plan: pt diet abx cbc bmp am pending sx Subjective Constitutional: Reports: weakness Allergies: Coded Allergies: No Known Allergies (Unverified , 07/19/17) All Systems: reviewed and negative except above Subjective sl hip pain Objective Last 24 Hour Vital Signs Date Time Temp Pulse Resp B/P (MAP) Pulse Ox O2 Delivery O2 Flow Rate FiO2 08/10/18 12:00 97.8 81 17 136/69 (91) 98 08/10/18 09:00 Room Air 08/10/18 08:00 98.9 109 20 147/65 (92) 96 08/10/18 04:00 99.2 99 17 124/54 (77) 96 08/10/18 00:00 99.1 108 17 110/59 (76) 96 08/09/18 21:00 Room Air 08/09/18 20:00 97.9 110 18 140/65 (90) 95 08/09/18 16:00 97.2 95 18 122/56 (78) 95 Intake and Output 08/09/18 08/10/18 18:59 06:59 Intake Total 55.0 ml 1332.5 ml Output Total 100 ml 1000 ml Balance -45.0 ml 332.5 ml Intake Oral 240 ml IV Total 55.0 ml 1092.5 ml Output Urine Total 100 ml 1000 ml Laboratory Tests 08/10/18 05:22: White Blood Count 9.2, Red Blood Count 4.16L, Hemoglobin 11.6L, Hematocrit 34.9L , Mean Corpuscular Volume 84, Mean Corpuscular Hemoglobin 28.0, Mean Corpuscular Hemoglobin Concent 33.3, Red Cell Distribution Width 13.9, Platelet Count 371, Mean Platelet Volume 6.1L, Neutrophils (%) (Auto) 75.7H, Lymphocytes (%) (Auto) 12.1L, Monocytes (%) (Auto) 8.9, Eosinophils (%) (Auto) 1.7, Basophils (%) (Auto) 1.5, Sodium Level 140, Potassium Level 4.0, Chloride Level 105, Carbon Dioxide Level 26, Anion Gap 9, Blood Urea Nitrogen 20H, Creatinine 1.5H, Estimat Glomerular Filtration Rate , Glucose Level 145H, Uric Acid 3.5, Calcium Level 9.0, Phosphorus Level 2.6, Magnesium Level 2.0, Total Bilirubin 0.6, Gamma Glutamyl Transpeptidase 13, Aspartate Amino Transf (AST/SGOT) 11L, Alanine Aminotransferase (ALT/SGPT) 6L, Alkaline Phosphatase 55, Total Creatine Kinase 106, Troponin I 0.000, C-Reactive Protein, Quantitative 22.5H, Pro-B- Type Natriuretic Peptide 5041H, Total Protein 7.7, Albumin 2.7L, Globulin 5.0, Albumin/Globulin Ratio 0.5L, Triglycerides Level 234H, Cholesterol Level 220H, LDL Cholesterol 134H, HDL Cholesterol 30L, Cholesterol/HDL Ratio 7.3H, Vitamin B12 Level 420, Folate 22.7, Thyroid Stimulating Hormone (TSH) 1.894, Cortisol AM Sample 15.8 Height (Feet): 5 Height (Inches): 8.00 Weight (Pounds): 120 General Appearance: lethargic EENT: normal ENT inspection Neck: normal alignment Cardiovascular: normal peripheral pulses, normal rate, regular rhythm Respiratory/Chest: chest wall non-tender, lungs clear, normal breath sounds Abdomen: normal bowel sounds, non tender, soft Extremities: normal inspection Edema: no edema noted Arm (L), no edema noted Arm (R), no edema noted Leg (L), no edema noted Leg (R), no edema noted Pedal (L), no edema noted Pedal (R), no edema noted Generalized Neurologic: motor weakness Skin: normal pigmentation, warm/dry Samir Cramer DO August 10, 2018 13:50
--- NOTE | 2018-08-10 13:52 | Anethesia Preoperative Eval ---
Anesthesia Pre-op PMH/ROS General Date of Evaluation: August 10, 2018 Time of Evaluation: 16:21 Anesthesiologist: Kwan ASA Score: ASA 4 Mallampati Score Class I : Soft palate, uvula, fauces, pillars visible Class II: Soft palate, uvula, fauces visible Class III: Soft palate, base of uvula visible Class IV: Only hard plate visible Mallampati Classification: Class II Surgeon: Katharine Diagnosis: L Hip Fx Surgical Procedure: L Hip ORIF Anesthesia History: none Family History: no anesthesia problems Allergies: Coded Allergies: No Known Allergies (Unverified , 07/19/17) Medications: see eMAR Patient NPO?: Yes Past Medical History Cardiovascular: Reports: HTN, arrhythmia - Pacemaker Pulmonary: Reports: COPD Gastrointestinal/Genitourinary: Reports: CRI - Sepsis, other - Penile Cellulitis, BPH, UTI, Calorie Malnutrition Neurologic/Psychiatric: Reports: dementia Endocrine: Reports: DM Hematology/Immune: Reports: anemia Musculoskeletal/Integumentary: Reports: other - Decubitus Ulcer, Bed Bound, DNR , L Hip Fx Anesthesia Pre-op Phys. Exam Physician Exam Last Vital Signs Date Time Temp Pulse Resp B/P (MAP) Pulse Ox O2 Delivery O2 Flow Rate FiO2 08/10/18 12:00 97.8 81 17 136/69 (91) 98 08/10/18 09:00 Room Air Constitutional: NAD Neurologic: CN 2-12 intact Cardiovascular: RRR Respiratory: CTA Gastrointestinal: S/NT/ND Airway Exam Mallampati Score: Class II MO: limited ROM: limited Teeth: missing, intact Anesthesia Pre-op A/P Labs Hematology Test 08/10/18 05:22 White Blood Count 9.2 K/UL (4.8-10.8) Red Blood Count 4.16 M/UL (4.70-6.10) L Hemoglobin 11.6 G/DL (14.2-18.0) L Hematocrit 34.9 % (42.0-52.0) L Mean Corpuscular Volume 84 FL (80-99) Mean Corpuscular Hemoglobin 28.0 PG (27.0-31.0) Mean Corpuscular Hemoglobin Concent 33.3 G/DL (32.0-36.0) Red Cell Distribution Width 13.9 % (11.6-14.8) Platelet Count 371 K/UL (150-450) Mean Platelet Volume 6.1 FL (6.5-10.1) L Neutrophils (%) (Auto) 75.7 % (45.0-75.0) H Lymphocytes (%) (Auto) 12.1 % (20.0-45.0) L Monocytes (%) (Auto) 8.9 % (1.0-10.0) Eosinophils (%) (Auto) 1.7 % (0.0-3.0) Basophils (%) (Auto) 1.5 % (0.0-2.0) Chemistry Test 08/10/18 05:22 Sodium Level 140 MMOL/L (136-145) Potassium Level 4.0 MMOL/L (3.5-5.1) Chloride Level 105 MMOL/L (98-107) Carbon Dioxide Level 26 MMOL/L (21-32) Anion Gap 9 mmol/L (5-15) Blood Urea Nitrogen 20 mg/dL (7-18) H Creatinine 1.5 MG/DL (0.55-1.30) H Estimat Glomerular Filtration Rate mL/min (>60) Glucose Level 145 MG/DL (74-106) H Uric Acid 3.5 MG/DL (2.6-7.2) Calcium Level 9.0 MG/DL (8.5-10.1) Phosphorus Level 2.6 MG/DL (2.5-4.9) Magnesium Level 2.0 MG/DL (1.8-2.4) Total Bilirubin 0.6 MG/DL (0.2-1.0) Gamma Glutamyl Transpeptidase 13 U/L (5-85) Aspartate Amino Transf (AST/SGOT) 11 U/L (15-37) L Alanine Aminotransferase (ALT/SGPT) 6 U/L (12-78) L Alkaline Phosphatase 55 U/L (46-116) Total Creatine Kinase 106 U/L (26-308) Troponin I 0.000 ng/mL (0.000-0.056) C-Reactive Protein, Quantitative 22.5 mg/dL (0.00-0.90) H Pro-B-Type Natriuretic Peptide 5041 pg/mL (0-125) H Total Protein 7.7 G/DL (6.4-8.2) Albumin 2.7 G/DL (3.4-5.0) L Globulin 5.0 g/dL Albumin/Globulin Ratio 0.5 (1.0-2.7) L Triglycerides Level 234 MG/DL (30-150) H Cholesterol Level 220 MG/DL (< 200) H LDL Cholesterol 134 mg/dL (<100) H HDL Cholesterol 30 MG/DL (40-60) L Cholesterol/HDL Ratio 7.3 (3.3-4.4) H Vitamin B12 Level 420 PG/ML (193-986) Folate 22.7 NG/ML (8.6-58.9) Thyroid Stimulating Hormone (TSH) 1.894 uiU/mL (0.358-3.740) Cortisol AM Sample 15.8 UG/DL Risk Assessment & Plan Assessment: ASA 4 Plan: Spinal/GA Status Change Before Surgery: No Pre-Antibiotics Drug: Juni Castillo MD August 10, 2018 13:52
--- NOTE | 2018-08-10 14:19 | Cardiology Report ---
APPROVED REPORT EKG Measurement Heart [id number] Sinus tachycardia Otherwise normal ECG
--- NOTE | 2018-08-10 15:52 | Nephrology Progress Note ---
Assessment/Plan Problem List: (1) ATN (acute tubular necrosis) (2) UTI (urinary tract infection) (3) Severe protein-calorie malnutrition (4) BPH (benign prostatic hyperplasia) (5) Phimosis (6) Closed left hip fracture Assessment Acute on chronic renal failure- UTI , Fever Closed left hip fracture Phimosis Plan Anemia agrawal- Hydrate Protonix monitor renal parameters per orders per ortho Subjective ROS Limited/Unobtainable: No Constitutional: Reports: malaise Objective Objective Last 24 Hour Vital Signs Date Time Temp Pulse Resp B/P (MAP) Pulse Ox O2 Delivery O2 Flow Rate FiO2 08/10/18 12:00 97.8 81 17 136/69 (91) 98 08/10/18 09:00 Room Air 08/10/18 08:00 98.9 109 20 147/65 (92) 96 08/10/18 04:00 99.2 99 17 124/54 (77) 96 08/10/18 00:00 99.1 108 17 110/59 (76) 96 08/09/18 21:00 Room Air 08/09/18 20:00 97.9 110 18 140/65 (90) 95 08/09/18 16:00 97.2 95 18 122/56 (78) 95 Intake and Output 08/09/18 08/10/18 18:59 06:59 Intake Total 55.0 ml 1332.5 ml Output Total 100 ml 1000 ml Balance -45.0 ml 332.5 ml Intake Oral 240 ml IV Total 55.0 ml 1092.5 ml Output Urine Total 100 ml 1000 ml Laboratory Tests 08/10/18 05:22: White Blood Count 9.2, Red Blood Count 4.16L, Hemoglobin 11.6L, Hematocrit 34.9L , Mean Corpuscular Volume 84, Mean Corpuscular Hemoglobin 28.0, Mean Corpuscular Hemoglobin Concent 33.3, Red Cell Distribution Width 13.9, Platelet Count 371, Mean Platelet Volume 6.1L, Neutrophils (%) (Auto) 75.7H, Lymphocytes (%) (Auto) 12.1L, Monocytes (%) (Auto) 8.9, Eosinophils (%) (Auto) 1.7, Basophils (%) (Auto) 1.5, Sodium Level 140, Potassium Level 4.0, Chloride Level 105, Carbon Dioxide Level 26, Anion Gap 9, Blood Urea Nitrogen 20H, Creatinine 1.5H, Estimat Glomerular Filtration Rate , Glucose Level 145H, Uric Acid 3.5, Calcium Level 9.0, Phosphorus Level 2.6, Magnesium Level 2.0, Total Bilirubin 0.6, Gamma Glutamyl Transpeptidase 13, Aspartate Amino Transf (AST/SGOT) 11L, Alanine Aminotransferase (ALT/SGPT) 6L, Alkaline Phosphatase 55, Total Creatine Kinase 106, Troponin I 0.000, C-Reactive Protein, Quantitative 22.5H, Pro-B- Type Natriuretic Peptide 5041H, Total Protein 7.7, Albumin 2.7L, Globulin 5.0, Albumin/Globulin Ratio 0.5L, Triglycerides Level 234H, Cholesterol Level 220H, LDL Cholesterol 134H, HDL Cholesterol 30L, Cholesterol/HDL Ratio 7.3H, Vitamin B12 Level 420, Folate 22.7, Thyroid Stimulating Hormone (TSH) 1.894, Cortisol AM Sample 15.8 Height (Feet): 5 Height (Inches): 8.00 Weight (Pounds): 120 General Appearance: no apparent distress Cardiovascular: tachycardia Respiratory/Chest: decreased breath sounds Abdomen: soft Jose Guadalupe Santiago MD August 10, 2018 15:52
[2018-08-10 16:00] VITALS: BP 135/68
[2018-08-10] MEDS ORDERED: Metoprolol Tartrate 12.5mg TAB ORAL SCH (16:00)
--- NOTE | 2018-08-10 17:14 | Cardiac Electrophysiology PN ---
Subjective Subjective [id number] Objective Last 24 Hour Vital Signs Date Time Temp Pulse Resp B/P (MAP) Pulse Ox O2 Delivery O2 Flow Rate FiO2 08/10/18 16:00 97.7 72 18 135/68 (90) 97 08/10/18 12:00 97.8 81 17 136/69 (91) 98 08/10/18 09:00 Room Air 08/10/18 08:00 98.9 109 20 147/65 (92) 96 08/10/18 04:00 99.2 99 17 124/54 (77) 96 08/10/18 00:00 99.1 108 17 110/59 (76) 96 08/09/18 21:00 Room Air 08/09/18 20:00 97.9 110 18 140/65 (90) 95 Intake and Output 08/09/18 08/10/18 18:59 06:59 Intake Total 55.0 ml 1332.5 ml Output Total 100 ml 1000 ml Balance -45.0 ml 332.5 ml Intake Oral 240 ml IV Total 55.0 ml 1092.5 ml Output Urine Total 100 ml 1000 ml Laboratory Tests Test 08/10/18 05:22 White Blood Count 9.2 K/UL (4.8-10.8) Red Blood Count 4.16 M/UL (4.70-6.10) L Hemoglobin 11.6 G/DL (14.2-18.0) L Hematocrit 34.9 % (42.0-52.0) L Mean Corpuscular Volume 84 FL (80-99) Mean Corpuscular Hemoglobin 28.0 PG (27.0-31.0) Mean Corpuscular Hemoglobin Concent 33.3 G/DL (32.0-36.0) Red Cell Distribution Width 13.9 % (11.6-14.8) Platelet Count 371 K/UL (150-450) Mean Platelet Volume 6.1 FL (6.5-10.1) L Neutrophils (%) (Auto) 75.7 % (45.0-75.0) H Lymphocytes (%) (Auto) 12.1 % (20.0-45.0) L Monocytes (%) (Auto) 8.9 % (1.0-10.0) Eosinophils (%) (Auto) 1.7 % (0.0-3.0) Basophils (%) (Auto) 1.5 % (0.0-2.0) Sodium Level 140 MMOL/L (136-145) Potassium Level 4.0 MMOL/L (3.5-5.1) Chloride Level 105 MMOL/L (98-107) Carbon Dioxide Level 26 MMOL/L (21-32) Anion Gap 9 mmol/L (5-15) Blood Urea Nitrogen 20 mg/dL (7-18) H Creatinine 1.5 MG/DL (0.55-1.30) H Estimat Glomerular Filtration Rate mL/min (>60) Glucose Level 145 MG/DL (74-106) H Uric Acid 3.5 MG/DL (2.6-7.2) Calcium Level 9.0 MG/DL (8.5-10.1) Phosphorus Level 2.6 MG/DL (2.5-4.9) Magnesium Level 2.0 MG/DL (1.8-2.4) Total Bilirubin 0.6 MG/DL (0.2-1.0) Gamma Glutamyl Transpeptidase 13 U/L (5-85) Aspartate Amino Transf (AST/SGOT) 11 U/L (15-37) L Alanine Aminotransferase (ALT/SGPT) 6 U/L (12-78) L Alkaline Phosphatase 55 U/L (46-116) Total Creatine Kinase 106 U/L (26-308) Troponin I 0.000 ng/mL (0.000-0.056) C-Reactive Protein, Quantitative 22.5 mg/dL (0.00-0.90) H Pro-B-Type Natriuretic Peptide 5041 pg/mL (0-125) H Total Protein 7.7 G/DL (6.4-8.2) Albumin 2.7 G/DL (3.4-5.0) L Globulin 5.0 g/dL Albumin/Globulin Ratio 0.5 (1.0-2.7) L Triglycerides Level 234 MG/DL (30-150) H Cholesterol Level 220 MG/DL (< 200) H LDL Cholesterol 134 mg/dL (<100) H HDL Cholesterol 30 MG/DL (40-60) L Cholesterol/HDL Ratio 7.3 (3.3-4.4) H Vitamin B12 Level 420 PG/ML (193-986) Folate 22.7 NG/ML (8.6-58.9) Thyroid Stimulating Hormone (TSH) 1.894 uiU/mL (0.358-3.740) Cortisol AM Sample 15.8 UG/DL Microbiology Date/Time Source Procedure Growth Status 08/09/18 02:22 Blood Blood Culture - Preliminary NO GROWTH AFTER 24 HOURS Resulted 08/09/18 02:10 Blood Blood Culture - Preliminary NO GROWTH AFTER 24 HOURS Resulted 08/09/18 05:00 Urine,Clean Catch Urine Culture - Preliminary Gram Negative Jordon Resulted 08/09/18 04:30 Rectum Received Charly Krueger MD August 10, 2018 17:14
[2018-08-10] MEDS ORDERED: TYLENOL EXTRA500 MG ORAL (19:40)
--- NOTE | 2018-08-10 19:45 | NUR ---
NURSE NOTES: Pt is in bed, awake and alert. No acute distress noted. Pt has scheduled left hip ORIF tomorrow. Pt is informed, pt will be NPO after midnight. Bed locked low in position,side rails up and call light within reach. Bed alarm on. Pt will be monitored. Fall precaution in place.
--- NOTE | 2018-08-10 19:47 | NUR ---
HAND-OFF: Report given to PAMELA Quezada.
[2018-08-10 20:00] VITALS: BP 117/61
[2018-08-10] MEDS: Tamsulosin 0.4mg cap ORAL SCH (23:20)
[2018-08-10] MEDS: Metoprolol Tartrate 12.5mg TAB ORAL SCH (23:21)
[2018-08-11] VITALS (12 sets, daily range): BP systolic 102–129; BP diastolic 43–60
--- NOTE | 2018-08-11 | NUR ---
NURSE NOTES: Pt is currently NPO for ORIF
--- NOTE | 2018-08-11 02:00 | Consultation ---
DATE OF CONSULTATION: 08/10/2018 CARDIOLOGY CONSULTATION REASON FOR CONSULTATION: Preoperative clearance. HISTORY OF PRESENT ILLNESS: The patient is a 78-year-old gentleman, who had a fall that resulted in left hip pain. The patient was taken to [facility] and was found to have a left hip intertrochanteric fracture. The patient was evaluated by Orthopedic surgery, Dr. Alcantar, who recommended a left hip open reduction and internal fixation with gamma nail. A Cardiology consultation was requested for preoperative evaluation and clearance. REVIEW OF SYSTEMS: Review of systems was negative other than what was mentioned in the history of present illness. PAST MEDICAL HISTORY: As mentioned above. FAMILY HISTORY: Noncontributory. SOCIAL HISTORY: He lives in [place] [facility]. Does not smoke or drink alcohol. PHYSICAL EXAMINATION: VITAL SIGNS: Show home blood pressure is 147/65, pulse is 100, respirations 18, and temperature 99. HEAD AND NECK: Showed no jugular venous distention. LUNGS: Clear. CARDIOVASCULAR: Shows regular S1 and S2 with no gallop or murmur. ABDOMEN: Soft. EXTREMITIES: Status post left external rotation shortening. LABORATORY AND DIAGNOSTIC DATA: His labs show white count of 9.2, hemoglobin 11.6, hematocrit 34.9, and platelets of 371,000. Sodium 140, potassium is 4.0, BUN of 20, creatinine 1.4, and glucose of 145. Troponin is negative. BNP is more than 5000. INR is 0. Urinalysis showed too many to count wbc, 5+ blood, 3+ protein, and 3+ leukocyte esterase. His echocardiogram showed ejection fraction of 35%. ASSESSMENT/PLAN: 1. Cardiomyopathy with ejection fraction of 30% to 35% based on the echocardiogram. The patient denies any chest pain or shortness of breath. He is able to lay flat. Denies any prior myocardial infarction or congestive heart failure. I will put him on Coreg and lisinopril . I will hold off on Lasix as the patient clinically is euvolemic. Creatinine is 1.5. BNP is more than 5000. From cardiac standpoint, the patient has moderate risk of and mortality, but clinically euvolemic. 2. Renal failure. Creatinine of 1.5. 3. Hip fracture. Thank you very much for allowing me to participate in the care of this patient. Please do not hesitate to contact me for any questions regarding my evaluation. Charly Krueger M.D. DR: CAROL JOB#: [id number] CC:
[2018-08-11] MEDS: Piperacillin/Tazobactam 3.375 GM in NS 110 ML IVPB SCH (05:43)
--- NOTE | 2018-08-11 06:10 | NUR ---
HAND-OFF: Report given to PAMELA Whitman. Addendum: 08/11/18 at 6180 by WYATT MIJARES RN RN Disregard Above note; wrong time.
[2018-08-11] MEDS ORDERED: Bacitracin 50000 Units Vial ONE (06:36)
[2018-08-11] MEDS ORDERED: NeoSporin Gu Irrig 1ml Amp IRRIG ONE (06:36)
[2018-08-11] MEDS ORDERED: Bupivacaine 0.5% Inj 30 ml vial INJ ONE ×2 (06:36→06:47)
--- NOTE | 2018-08-11 06:45 | NUR ---
NURSE NOTES: Pt went down to the OR on a gurney with [place] in stable condition. awake and alert.
[2018-08-11] MEDS ORDERED: EPINEPHrine 1mg/1ml Amp ONE (06:46)
[2018-08-11] MEDS ORDERED: Duramorph PF 5mg/10ml amp ONE (06:47)
[2018-08-11] MEDS ORDERED: Lidocaine 1% Plain 30 ml INJ ONE (06:55)
[2018-08-11] MEDS ORDERED: Midazolam 2mg/2ml Inj ONE (06:55)
[2018-08-11] MEDS ORDERED: Sodium Chloride 10ml vial INJ ONE (06:55)
[2018-08-11] MEDS ORDERED: Propofol 200mg/20ml IV ONE (06:55)
[2018-08-11] MEDS ORDERED: LR 1000ml ONE (07:00)
[2018-08-11] MEDS ORDERED: NS Irrig 1000ml ONE (07:00)
[2018-08-11] MEDS ORDERED: Sterile Water Irrig 1000ml IRRIG ONE (07:00)
[2018-08-11 07:06] LABS: IRON 14 ug/dL (50-175); TOTAL IRON BINDING CAPACITY 122 ug/dL (250-450)
[2018-08-11 07:12] LABS: % IRON SATURATION 11 % (15-50)
[2018-08-11] MEDS ORDERED: HYDROcodone/Acetamin 7.5/325 tab ORAL PRN ×2 (07:15→08:15)
[2018-08-11] MEDS ORDERED: Milk of Magnesia 30ml Ud ORAL PRN (07:15)
[2018-08-11] MEDS ORDERED: HYDROmorphone 1mg/ml Carpuject SUBQ PRN (07:15)
--- NOTE | 2018-08-11 07:15 | NUR ---
HAND-OFF: Report given to J Carlos Esquivel RN.
[2018-08-11 07:20] LABS: ALANINE AMINOTRANSFERASE 6 U/L (12-78); ALBUMIN 2.2 G/DL (3.4-5.0); ALBUMIN/GLOBULIN RATIO 0.5 (1.0-2.7); ALKALINE PHOSPHATASE 50 U/L (46-116); ANION GAP 8 mmol/L (5-15); ASPARTATE AMINO TRANSFERASE 18 U/L (15-37); BILIRUBIN,TOTAL 0.5 MG/DL (0.2-1.0); BLOOD UREA NITROGEN 20 mg/dL (7-18); CALCIUM 8.5 MG/DL (8.5-10.1); CARBON DIOXIDE 25 MMOL/L (21-32); CHLORIDE 106 MMOL/L (98-107); CREATININE 1.4 MG/DL (0.55-1.30); FERRITIN 560 NG/ML (8-388); PHOSPHORUS 2.2 MG/DL (2.5-4.9); POTASSIUM 3.6 MMOL/L (3.5-5.1); SODIUM 139 MMOL/L (136-145)
[2018-08-11 07:21] LABS: EOSINOPHILS % (AUTO) 2.4 % (0.0-3.0); HEMATOCRIT 30.8 % (42.0-52.0); HEMOGLOBIN 10.4 G/DL (14.2-18.0); LYMPHOCYTES % (AUTO) 16.5 % (20.0-45.0); MEAN CORPUSCULAR VOLUME 83 FL (80-99); MONOCYTES % (AUTO) 13.3 % (1.0-10.0); NEUTROPHILS % (AUTO) 66.9 % (45.0-75.0); PLATELET COUNT 363 K/UL (150-450); RED BLOOD COUNT 3.71 M/UL (4.70-6.10); RED CELL DISTRIBUTION WIDTH 13.7 % (11.6-14.8); WHITE BLOOD COUNT 8.3 K/UL (4.8-10.8)
--- NOTE | 2018-08-11 07:22 | Pre-Procedure Note/Attestation ---
Pre-Procedure Note/Attestation Complete Prior to Procedure Planned Procedure: left Procedure Narrative: left hip fracture Indications for Procedure Pre-Operative Diagnosis: left hip orif Attestation I attest that I discussed the nature of the procedure; its benefits; risks and complications; and alternatives (and the risks and benefits of such alternatives ), prior to the procedure, with the patient (or the patient's legal manufacturer representative). I attest that, if there was a reasonable possibility of needing a blood transfusion, the patient (or the patient's legal manufacturer representative) was given the [facility] [place] [facility] standardized written summary, pursuant to the [place] Blood Safety Act ([place] Health and Safety Code # 1645, as amended). I attest that I re-evaluated the patient just prior to the surgery and that there has been no change in the patient's H&P, except as documented below: none Eb Alcantar MD August 11, 2018 07:22
[2018-08-11] MEDS ORDERED: ePHEDrine 50mg/ml Inj ONE (07:38)
[2018-08-11] MEDS ORDERED: LR 1000ml 1,000 ML IVLG SCH (08:03)
--- NOTE | 2018-08-11 08:03 | NUR ---
NURSE NOTES: pt still in OR for Sx. will follow up accordingly
[2018-08-11] MEDS ORDERED: oxyCODONE HCL/Acetaminophen 5/325mg ORAL PRN (08:15)
[2018-08-11] MEDS ORDERED: Midazolam 2mg/2ml Inj IVP PRN (08:15)
[2018-08-11] MEDS ORDERED: Labetalol 5mg/ml 20ml vial IV PRN (08:15)
[2018-08-11] MEDS ORDERED: Atropine Sulfate 0.4mg/ml inj IVP PRN (08:15)
[2018-08-11] MEDS ORDERED: LORazepam Inj 2mg/ml 1ml IV PRN (08:15)
[2018-08-11] MEDS ORDERED: Meperidine 50mg/ml Inj(FOR RIGORS ONLY) IVP PRN (08:15)
[2018-08-11] MEDS ORDERED: HYDROcodone/Acetamin 5/325 tab ORAL PRN (08:15)
[2018-08-11] MEDS ORDERED: Metoclopramide 10mg/2ml Inj IVP PRN (08:15)
[2018-08-11] MEDS ORDERED: Hydromorphone 0.5mg/0.5ml inj IVP PRN (08:15)
[2018-08-11] MEDS ORDERED: DiphenhydrAMINE 50mg/ml Inj IVP PRN (08:15)
[2018-08-11] MEDS ORDERED: fentaNYL 100 mcg/2 mL IV PRN (08:15)
[2018-08-11] MEDS ORDERED: Flumazenil 0.1mg/ml 5ml Inj IV ONE (08:18)
--- NOTE | 2018-08-11 08:29 | Brief Operative Note ---
Immediate Post Operative Note Operative Note Chief Complaint: left hip pain Pre-op Diagnosis: left hip fx Procedure: left hip orif Post-op Diagnosis: same as pre-op Findings: consistent w/pre-op dx studies Surgeon: md cathie Exhibit Artist: letty lopez Anesthesiologist: md marjorie Anesthesia: general Specimen: none Complications: none Condition: stable Fluids: ns Estimated Blood Loss: minimal Drains: none Implant(s) used?: Yes - Mary Mcdonald August 11, 2018 08:29
--- NOTE | 2018-08-11 08:40 | Immediate Post-Op Evaluation ---
Immediate Post-Op Evalulation Immediate Post-Op Evalulation Procedure: ORIF L Hip Date of Evaluation: August 11, 2018 Time of Evaluation: 08:52 IV Fluids: 600 LR Blood Products: 0 Estimated Blood Loss: 25 Urinary Output: 0 Blood Pressure Systolic: 124 Blood Pressure Diastolic: 50 Pulse Rate: 93 Respiratory Rate: 16 O2 Sat by Pulse Oximetry: 100 Temperature (Fahrenheit): 98 Pain Score (1-10): 0 Nausea: No Vomiting: No Patient Status: awake, reacts, patent, none Hydration Status: adequate Dru Gram Ancef IV Given Within 1 Hr of Incision: Yes Time Given: 07:14 Juni Bowens MD August 11, 2018 08:40
[2018-08-11] MEDS: Metoprolol Tartrate 12.5mg TAB ORAL SCH ×2 (09:00→20:19)
[2018-08-11] MEDS: Docusate 100mg cap ORAL SCH ×3 (09:00→17:07)
[2018-08-11] MEDS ORDERED: Docusate 100mg cap ORAL SCH (09:00)
--- NOTE | 2018-08-11 09:10 | General Progress Note ---
Assessment/Plan Problem List: (1) UTI (urinary tract infection) ICD Codes: N39.0 - Urinary tract infection, site not specified SNOMED: 87679591 (2) Decubitus ulcer, heel, left, unstageable ICD Codes: L89.620 - Pressure ulcer of left heel, unstageable SNOMED: 742543515 (3) Phimosis ICD Codes: N47.1 - Phimosis SNOMED: 555727520 (4) Fever ICD Codes: R50.9 - Fever, unspecified SNOMED: 817718756 Qualifiers: Qualified Codes: R50.9 - Fever, unspecified (5) Closed left hip fracture ICD Codes: S72.002A - Fracture of unspecified part of neck of left femur, initial encounter for closed fracture SNOMED: 401934055 Qualifiers: Qualified Codes: S72.002A - Fracture of unspecified part of neck of left femur, initial encounter for closed fracture (6) COPD (chronic obstructive pulmonary disease) ICD Codes: J44.9 - Chronic obstructive pulmonary disease, unspecified SNOMED: 89060635 Status: unchanged Assessment/Plan: pt diet abx cbc bmp am pending sx Subjective Constitutional: Reports: weakness Allergies: Coded Allergies: No Known Allergies (Unverified , 07/19/17) All Systems: reviewed and negative except above Subjective sl hip pain awaitng sx Objective Last 24 Hour Vital Signs Date Time Temp Pulse Resp B/P (MAP) Pulse Ox O2 Delivery O2 Flow Rate FiO2 08/11/18 09:00 86 17 112/53 99 Nasal Cannula 3 08/11/18 08:55 87 22 115/56 99 Nasal Cannula 3 08/11/18 08:50 91 20 128/55 100 Simple Mask 6 08/11/18 08:45 89 18 124/50 100 Simple Mask 6 08/11/18 08:41 97.9 96 16 122/56 98 Simple Mask 6 08/11/18 08:40 93 16 100 08/11/18 04:00 97.9 104 20 112/55 (74) 98 08/11/18 00:00 99.9 97 20 102/43 (62) 96 08/10/18 23:21 104 117/61 08/10/18 21:00 Room Air 08/10/18 20:00 99.8 104 20 117/61 (79) 100 08/10/18 17:14 72 135/68 08/10/18 16:00 97.7 72 18 135/68 (90) 97 08/10/18 12:00 97.8 81 17 136/69 (91) 98 Intake and Output 08/10/18 08/11/18 19:00 07:00 Intake Total 1187.5 ml 1037.5 ml Balance 1187.5 ml 1037.5 ml IV Total 587.5 ml 1037.5 ml Other 600 ml # Voids 3 3 # Bowel Movements 1 Laboratory Tests 08/11/18 05:00: White Blood Count 8.3, Red Blood Count 3.71L, Hemoglobin 10.4L, Hematocrit 30.8L , Mean Corpuscular Volume 83, Mean Corpuscular Hemoglobin 28.0, Mean Corpuscular Hemoglobin Concent 33.7, Red Cell Distribution Width 13.7, Platelet Count 363, Mean Platelet Volume 6.0L, Neutrophils (%) (Auto) 66.9, Lymphocytes ( %) (Auto) 16.5L, Monocytes (%) (Auto) 13.3H, Eosinophils (%) (Auto) 2.4, Basophils (%) (Auto) 1.0, Sodium Level 139, Potassium Level 3.6, Chloride Level 106, Carbon Dioxide Level 25, Anion Gap 8, Blood Urea Nitrogen 20H, Creatinine 1.4H, Estimat Glomerular Filtration Rate , Glucose Level 135H, Hemoglobin A1c 6.8H, Calcium Level 8.5, Phosphorus Level 2.2L, Magnesium Level 1.8, Iron Level 14L, Total Iron Binding Capacity 122L, Percent Iron Saturation 11L, Unsaturated Iron Binding 108L, Ferritin 560H, Total Bilirubin 0.5, Aspartate Amino Transf ( AST/SGOT) 18, Alanine Aminotransferase (ALT/SGPT) 6L, Alkaline Phosphatase 50, Total Protein 6.9, Albumin 2.2L, Globulin 4.7, Albumin/Globulin Ratio 0.5L Height (Feet): 5 Height (Inches): 8.00 Weight (Pounds): 120 General Appearance: lethargic EENT: normal ENT inspection Neck: normal alignment Cardiovascular: normal peripheral pulses, normal rate, regular rhythm Respiratory/Chest: chest wall non-tender, lungs clear, normal breath sounds Abdomen: normal bowel sounds, non tender, soft Extremities: normal inspection Edema: no edema noted Arm (L), no edema noted Arm (R), no edema noted Leg (L), no edema noted Leg (R), no edema noted Pedal (L), no edema noted Pedal (R), no edema noted Generalized Neurologic: responsive, motor weakness Skin: normal pigmentation, warm/dry Samir Cramer DO August 11, 2018 09:10
--- NOTE | 2018-08-11 09:12 | NUR ---
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 LEFT HIP ORIF 08/11 VS: BP 104/50, P 132, T 97.5, RR 20, SpO2 94 RBC 3.71, H&H 10.4/30.8, CR 1.4, BUN 20 HIP XRAY: Surgical repair of previously demonstrated intertrochanteric fracture with medullary chivo and compression screw. IS:LOVENOX 30mg FLOMAX 0.4mg LIPITOR 10mg CEFAZOLIN SODIUM 110ml IVPB LOPRESSOR 12.5mg D5/NS x1L IV D5/ELECTROLYTES x1L IV ZOSYN 110ml IVPB MED/SURG STATUS
[2018-08-11] MEDS ORDERED: D5 1/2NS w/KCl 20mEq 1,000 ML IV SCH (10:00)
[2018-08-11] MEDS: Memantine 5 MG TAB ORAL SCH ×2 (10:48→17:07)
[2018-08-11] MEDS: Pantoprazole Inj IVP SCH (10:51)
[2018-08-11] MEDS: Enoxaparin 30mg Inj SUBQ SCH (10:52)
--- NOTE | 2018-08-11 11:33 | Diagnostic Imaging Report ---
INDICATION: Pain, intraoperative TECHNIQUE: Intraoperative imaging Fluoroscopy time: 53.5 seconds Total dose: 0.43177 mGym2 Total number of images: 4 COMPARISON: 08/09/2018 FINDINGS: Intraoperative images document surgical repair of previously demonstrated intertrochanteric fracture with medullary chivo and compression screw IMPRESSION: Intraoperative imaging, as described
--- NOTE | 2018-08-11 11:45 | Diagnostic Imaging Report ---
Indication: Hip pain, fracture, status post ORIF Technique: One view of the pelvis Comparison: 08/09/2018 Findings: Interim surgical repair of previously demonstrated left hip intertrochanteric fracture with medullary chivo and compression screw. Retained air from the surgical exposure is seen in the soft tissues. Impression: Postoperative left hip. No unusual features
--- NOTE | 2018-08-11 12:09 | Infectious Diseases Prog Note ---
Assessment/Plan Assessment/Plan ASSESSMENT: The patient is a 78-year-old male with, Left hip intertrochanteric fracture. Low-grade fever (secondary to acute trauma versus urinary tract infection) probable urinary tract infection UCx: 50 K P Mirabilis Hip Fx / Sp L Hip ORIF BPH Chronic obstructive pulmonary disease Diabetes History of chronic left shoulder dislocation Dementia. PLAN: Cont the patient on IV Ancef d# 1/ 7 , upon DC will change to Keflex /3 Sp IV Zosyn d# 3 Monitor CBC Monitor BMP. Monitor cultures (blood) Monitor chest x-ray Ortho fup Subjective Allergies: Coded Allergies: No Known Allergies (Unverified , 07/19/17) Subjective Sp ORIF of L Hip Objective Vital Signs Last 24 Hour Vital Signs Date Time Temp Pulse Resp B/P (MAP) Pulse Ox O2 Delivery O2 Flow Rate FiO2 08/11/18 09:59 Room Air 08/11/18 09:15 83 19 120/52 100 Nasal Cannula 3 08/11/18 09:10 81 16 118/48 99 Nasal Cannula 3 08/11/18 09:00 86 17 112/53 99 Nasal Cannula 3 08/11/18 08:55 87 22 115/56 99 Nasal Cannula 3 08/11/18 08:50 91 20 128/55 100 Simple Mask 6 08/11/18 08:45 89 18 124/50 100 Simple Mask 6 08/11/18 08:41 97.9 96 16 122/56 98 Simple Mask 6 08/11/18 08:40 93 16 100 08/11/18 04:00 97.9 104 20 112/55 (74) 98 08/11/18 00:00 99.9 97 20 102/43 (62) 96 08/10/18 23:21 104 117/61 08/10/18 21:00 Room Air 08/10/18 20:00 99.8 104 20 117/61 (79) 100 08/10/18 17:14 72 135/68 08/10/18 16:00 97.7 72 18 135/68 (90) 97 Height (Feet): 5 Height (Inches): 8.00 Weight (Pounds): 120 HEENT: anicteric Respiratory/Chest: normal breath sounds Cardiovascular: normal rate Abdomen: no organomegaly Microbiology Date/Time Source Procedure Growth Status 08/09/18 02:22 Blood Blood Culture - Preliminary NO GROWTH AFTER 24 HOURS Resulted 08/09/18 02:10 Blood Blood Culture - Preliminary NO GROWTH AFTER 24 HOURS Resulted 08/09/18 04:30 Nasal Nares MRSA Culture - Final Staphylococcus Aureus - Mrsa Complete 08/09/18 05:00 Urine,Clean Catch Urine Culture - Final Proteus Mirabilis Complete 08/09/18 04:30 Rectum - Final NO CARBAPENEM-RESISTANT ENTEROBACTERI... Complete 08/09/18 04:30 Rectum VRE Culture - Final Enterococcus Faecalis - Vre Complete Laboratory Tests Test 08/11/18 05:00 White Blood Count 8.3 K/UL (4.8-10.8) Red Blood Count 3.71 M/UL (4.70-6.10) L Hemoglobin 10.4 G/DL (14.2-18.0) L Hematocrit 30.8 % (42.0-52.0) L Mean Corpuscular Volume 83 FL (80-99) Mean Corpuscular Hemoglobin 28.0 PG (27.0-31.0) Mean Corpuscular Hemoglobin Concent 33.7 G/DL (32.0-36.0) Red Cell Distribution Width 13.7 % (11.6-14.8) Platelet Count 363 K/UL (150-450) Mean Platelet Volume 6.0 FL (6.5-10.1) L Neutrophils (%) (Auto) 66.9 % (45.0-75.0) Lymphocytes (%) (Auto) 16.5 % (20.0-45.0) L Monocytes (%) (Auto) 13.3 % (1.0-10.0) H Eosinophils (%) (Auto) 2.4 % (0.0-3.0) Basophils (%) (Auto) 1.0 % (0.0-2.0) Sodium Level 139 MMOL/L (136-145) Potassium Level 3.6 MMOL/L (3.5-5.1) Chloride Level 106 MMOL/L (98-107) Carbon Dioxide Level 25 MMOL/L (21-32) Anion Gap 8 mmol/L (5-15) Blood Urea Nitrogen 20 mg/dL (7-18) H Creatinine 1.4 MG/DL (0.55-1.30) H Estimat Glomerular Filtration Rate mL/min (>60) Glucose Level 135 MG/DL (74-106) H Hemoglobin A1c 6.8 % (4.3-6.0) H Calcium Level 8.5 MG/DL (8.5-10.1) Phosphorus Level 2.2 MG/DL (2.5-4.9) L Magnesium Level 1.8 MG/DL (1.8-2.4) Iron Level 14 ug/dL (50-175) L Total Iron Binding Capacity 122 ug/dL (250-450) L Percent Iron Saturation 11 % (15-50) L Unsaturated Iron Binding 108 ug/dL (112-346) L Ferritin 560 NG/ML (8-388) H Total Bilirubin 0.5 MG/DL (0.2-1.0) Aspartate Amino Transf (AST/SGOT) 18 U/L (15-37) Alanine Aminotransferase (ALT/SGPT) 6 U/L (12-78) L Alkaline Phosphatase 50 U/L (46-116) Total Protein 6.9 G/DL (6.4-8.2) Albumin 2.2 G/DL (3.4-5.0) L Globulin 4.7 g/dL Albumin/Globulin Ratio 0.5 (1.0-2.7) L Current Medications Medications (Trade) Dose Ordered Sig/Nicole Route PRN Reason Start Time Stop Time Status Last Admin Dose Admin Acetaminophen (Tylenol) 650 mg Q4H PRN ORAL Mild Pain (Pain Scale 1-3) 08/11/18 07:15 09/10/18 07:14 Acetaminophen (Tylenol) 650 mg Q4H PRN ORAL temp>100 08/11/18 07:15 09/10/18 07:14 Acetaminophen/ Hydrocodone Bitart ([place] 7.5/325) 1 tab Q4H PRN ORAL Moderate Pain (Pain Scale 4-6) 08/11/18 07:15 08/18/18 07:14 Atorvastatin Calcium (Lipitor) 10 mg BEDTIME ORAL 08/10/18 21:00 09/09/18 20:59 08/10/18 23:21 Cefazolin Sodium 2 gm/Dextrose 110 ml @ 220 mls/hr EVERY 8 HOURS IV 08/11/18 14:00 08/11/18 22:29 UNV Dextrose/ Electrolytes 1,000 ml @ 75 mls/hr [id number] IV 08/11/18 10:00 09/10/18 09:59 08/11/18 10:51 Dextrose/Sodium Chloride 1,000 ml @ 75 mls/hr [id number] IV 08/09/18 17:00 09/08/18 16:59 08/10/18 18:41 Docusate Sodium (Colace) 100 mg THREE TIMES A DAY ORAL 08/09/18 18:00 09/08/18 17:59 08/10/18 17:14 Enoxaparin Sodium (Lovenox) 30 mg DAILY SUBQ 08/11/18 10:00 08/21/18 09:59 08/11/18 10:52 Ferrous Sulfate (Feosol) 325 mg THREE TIMES A DAY ORAL 08/11/18 09:00 09/10/18 08:59 Magnesium Hydroxide (Mom) 30 ml DAILYPRN PRN ORAL Constipation 08/11/18 07:15 09/10/18 07:14 Memantine (Namenda) 5 mg TWICE A DAY ORAL 08/09/18 18:00 09/08/18 17:59 08/10/18 17:14 Metoprolol Tartrate (Lopressor) 12.5 mg Q12HR ORAL 08/10/18 21:00 09/09/18 20:59 08/10/18 23:21 Pantoprazole (Protonix) 40 mg EVERY 12 HOURS IVP 08/09/18 21:00 09/08/18 20:59 08/11/18 10:51 Piperacillin Sod/ Tazobactam Sod 3.375 gm/Sodium Chloride 110 ml @ 27.5 mls/hr EVERY 8 HOURS IVPB 08/09/18 15:30 08/14/18 15:29 08/11/18 05:43 Polyethylene Glycol (Miralax) 17 gm DAILYPRN PRN ORAL Constipation 08/09/18 14:00 09/08/18 13:59 Tamsulosin HCl (Flomax) 0.4 mg BEDTIME ORAL 08/09/18 21:00 09/08/18 20:59 08/10/18 23:20 Temazepam (Restoril) 15 mg HSPRN PRN ORAL Insomnia 08/09/18 17:00 08/16/18 16:59 Gino James MD August 11, 2018 12:09
--- NOTE | 2018-08-11 13:05 | NUR ---
RD ASSESSMENT & RECOMMENDATIONS SEE CARE ACTIVITY FOR COMPLETE ASSESSMENT DAILY ESTIMATED NEEDS: Needs based on Surgery pending, underweight/ 54.5 kg 30-35 kcals/kg 8533-0065 total kcals 1-2 g protein/kg 55-109 g total protein 25-30 mL/kg 2256-0516 total fluid mLs NUTRITION DIAGNOSIS: * Increased Kcal and protein needs r/t wound healing, underweight status as evidenced by pt w/ sacral pressure ulcer pending eval, low BMI per guidelines, currently 78% of [place] Body Weight, now s/p L hip orif. . CURRENT DIET: Now CLD PO DIET RECOMMENDATIONS: Liberalized REGULAR diet/ Texture as tolerated ADDITIONAL RECOMMENDATIONS: 1) Obtain calibrated bedscale wt for accurate CBW 2) H/o DM, rec A1C for eval (6.8) 3) Add Ensure Clear TID w/ CLD; then Glucerna w/ advanced diet 4) Wound care: (f/up w/ eval) add BROOKE BID + MVI x1 + Vit C 250mg daily 5) With po intake >75% rec [facility] MED . .
--- NOTE | 2018-08-11 13:08 | Cardiac Electrophysiology PN ---
Assessment/Plan Assessment/Plan 1. Cardiomyopathy with ejection fraction of 30% to 35% based on the echocardiogram. The patient denies any chest pain or shortness of breath. He is able to lay flat. Denies any prior myocardial infarction or congestive heart failure. On Lopressor 12.5 bid. Add Lisinopril 5 daily I will hold off on Lasix as the patient clinically is euvolemic. 2. Renal failure. Creatinine of 1.5. 3. Hip fracture.S/P ORIF Subjective Subjective Just came back from ORIF. Alert in NAD Objective Last 24 Hour Vital Signs Date Time Temp Pulse Resp B/P (MAP) Pulse Ox O2 Delivery O2 Flow Rate FiO2 08/11/18 12:00 98.0 93 20 104/50 (68) 98 08/11/18 09:59 Room Air 08/11/18 09:15 83 19 120/52 100 Nasal Cannula 3 08/11/18 09:10 81 16 118/48 99 Nasal Cannula 3 08/11/18 09:00 86 17 112/53 99 Nasal Cannula 3 08/11/18 08:55 87 22 115/56 99 Nasal Cannula 3 08/11/18 08:50 91 20 128/55 100 Simple Mask 6 08/11/18 08:45 89 18 124/50 100 Simple Mask 6 08/11/18 08:41 97.9 96 16 122/56 98 Simple Mask 6 08/11/18 08:40 93 16 100 08/11/18 04:00 97.9 104 20 112/55 (74) 98 08/11/18 00:00 99.9 97 20 102/43 (62) 96 08/10/18 23:21 104 117/61 08/10/18 21:00 Room Air 08/10/18 20:00 99.8 104 20 117/61 (79) 100 08/10/18 17:14 72 135/68 08/10/18 16:00 97.7 72 18 135/68 (90) 97 Intake and Output 08/10/18 08/11/18 19:00 07:00 Intake Total 1187.5 ml 1037.5 ml Balance 1187.5 ml 1037.5 ml IV Total 587.5 ml 1037.5 ml Other 600 ml # Voids 3 3 # Bowel Movements 1 Laboratory Tests Test 08/11/18 05:00 White Blood Count 8.3 K/UL (4.8-10.8) Red Blood Count 3.71 M/UL (4.70-6.10) L Hemoglobin 10.4 G/DL (14.2-18.0) L Hematocrit 30.8 % (42.0-52.0) L Mean Corpuscular Volume 83 FL (80-99) Mean Corpuscular Hemoglobin 28.0 PG (27.0-31.0) Mean Corpuscular Hemoglobin Concent 33.7 G/DL (32.0-36.0) Red Cell Distribution Width 13.7 % (11.6-14.8) Platelet Count 363 K/UL (150-450) Mean Platelet Volume 6.0 FL (6.5-10.1) L Neutrophils (%) (Auto) 66.9 % (45.0-75.0) Lymphocytes (%) (Auto) 16.5 % (20.0-45.0) L Monocytes (%) (Auto) 13.3 % (1.0-10.0) H Eosinophils (%) (Auto) 2.4 % (0.0-3.0) Basophils (%) (Auto) 1.0 % (0.0-2.0) Sodium Level 139 MMOL/L (136-145) Potassium Level 3.6 MMOL/L (3.5-5.1) Chloride Level 106 MMOL/L (98-107) Carbon Dioxide Level 25 MMOL/L (21-32) Anion Gap 8 mmol/L (5-15) Blood Urea Nitrogen 20 mg/dL (7-18) H Creatinine 1.4 MG/DL (0.55-1.30) H Estimat Glomerular Filtration Rate mL/min (>60) Glucose Level 135 MG/DL (74-106) H Hemoglobin A1c 6.8 % (4.3-6.0) H Calcium Level 8.5 MG/DL (8.5-10.1) Phosphorus Level 2.2 MG/DL (2.5-4.9) L Magnesium Level 1.8 MG/DL (1.8-2.4) Iron Level 14 ug/dL (50-175) L Total Iron Binding Capacity 122 ug/dL (250-450) L Percent Iron Saturation 11 % (15-50) L Unsaturated Iron Binding 108 ug/dL (112-346) L Ferritin 560 NG/ML (8-388) H Total Bilirubin 0.5 MG/DL (0.2-1.0) Aspartate Amino Transf (AST/SGOT) 18 U/L (15-37) Alanine Aminotransferase (ALT/SGPT) 6 U/L (12-78) L Alkaline Phosphatase 50 U/L (46-116) Total Protein 6.9 G/DL (6.4-8.2) Albumin 2.2 G/DL (3.4-5.0) L Globulin 4.7 g/dL Albumin/Globulin Ratio 0.5 (1.0-2.7) L Microbiology Date/Time Source Procedure Growth Status 08/09/18 02:22 Blood Blood Culture - Preliminary NO GROWTH AFTER 24 HOURS Resulted 08/09/18 02:10 Blood Blood Culture - Preliminary NO GROWTH AFTER 24 HOURS Resulted 08/09/18 04:30 Nasal Nares MRSA Culture - Final Staphylococcus Aureus - Mrsa Complete 08/09/18 05:00 Urine,Clean Catch Urine Culture - Final Proteus Mirabilis Complete 08/09/18 04:30 Rectum - Final NO CARBAPENEM-RESISTANT ENTEROBACTERI... Complete 08/09/18 04:30 Rectum VRE Culture - Final Enterococcus Faecalis - Vre Complete Objective HEAD AND NECK: Showed no jugular venous distention. LUNGS: Clear. CARDIOVASCULAR: Shows regular S1 and S2 with no gallop or murmur. ABDOMEN: Soft. EXTREMITIES: Status post left hip ORIF Charly Krueger MD August 11, 2018 13:08
--- NOTE | 2018-08-11 13:26 | Pulmonology Progress Note ---
Assessment/Plan Problems: (1) Closed left hip fracture (2) COPD (chronic obstructive pulmonary disease) (3) BPH (benign prostatic hyperplasia) (4) Severe protein-calorie malnutrition (5) Decubitus ulcer Assessment/Plan all reviewed tolerated surgery pain management titrate fio2 to sat of 92% dvt prophylaxis wound care dc planning Subjective ROS Limited/Unobtainable: No Constitutional: Reports: no symptoms HEENT: Repors: no symptoms Allergies: Coded Allergies: No Known Allergies (Unverified , 07/19/17) Objective Last 24 Hour Vital Signs Date Time Temp Pulse Resp B/P (MAP) Pulse Ox O2 Delivery O2 Flow Rate FiO2 08/11/18 12:00 98.0 93 20 104/50 (68) 98 08/11/18 09:59 Room Air 08/11/18 09:15 83 19 120/52 100 Nasal Cannula 3 08/11/18 09:10 81 16 118/48 99 Nasal Cannula 3 08/11/18 09:00 86 17 112/53 99 Nasal Cannula 3 08/11/18 08:55 87 22 115/56 99 Nasal Cannula 3 08/11/18 08:50 91 20 128/55 100 Simple Mask 6 08/11/18 08:45 89 18 124/50 100 Simple Mask 6 08/11/18 08:41 97.9 96 16 122/56 98 Simple Mask 6 08/11/18 08:40 93 16 100 08/11/18 04:00 97.9 104 20 112/55 (74) 98 08/11/18 00:00 99.9 97 20 102/43 (62) 96 08/10/18 23:21 104 117/61 08/10/18 21:00 Room Air 08/10/18 20:00 99.8 104 20 117/61 (79) 100 08/10/18 17:14 72 135/68 08/10/18 16:00 97.7 72 18 135/68 (90) 97 Intake and Output 08/10/18 08/11/18 19:00 07:00 Intake Total 1187.5 ml 1037.5 ml Balance 1187.5 ml 1037.5 ml IV Total 587.5 ml 1037.5 ml Other 600 ml # Voids 3 3 # Bowel Movements 1 General Appearance: cachetic HEENT: normocephalic, anicteric Respiratory/Chest: lungs clear, no respiratory distress Cardiovascular: normal rate, regular rhythm Abdomen: no organomegaly Genitourinary: normal external genitalia Skin: no rash Microbiology Date/Time Source Procedure Growth Status 08/09/18 02:22 Blood Blood Culture - Preliminary NO GROWTH AFTER 24 HOURS Resulted 08/09/18 02:10 Blood Blood Culture - Preliminary NO GROWTH AFTER 24 HOURS Resulted 08/09/18 04:30 Nasal Nares MRSA Culture - Final Staphylococcus Aureus - Mrsa Complete 08/09/18 05:00 Urine,Clean Catch Urine Culture - Final Proteus Mirabilis Complete 08/09/18 04:30 Rectum - Final NO CARBAPENEM-RESISTANT ENTEROBACTERI... Complete 08/09/18 04:30 Rectum VRE Culture - Final Enterococcus Faecalis - Vre Complete Laboratory Tests 08/11/18 05:00: White Blood Count 8.3, Red Blood Count 3.71L, Hemoglobin 10.4L, Hematocrit 30.8L , Mean Corpuscular Volume 83, Mean Corpuscular Hemoglobin 28.0, Mean Corpuscular Hemoglobin Concent 33.7, Red Cell Distribution Width 13.7, Platelet Count 363, Mean Platelet Volume 6.0L, Neutrophils (%) (Auto) 66.9, Lymphocytes ( %) (Auto) 16.5L, Monocytes (%) (Auto) 13.3H, Eosinophils (%) (Auto) 2.4, Basophils (%) (Auto) 1.0, Sodium Level 139, Potassium Level 3.6, Chloride Level 106, Carbon Dioxide Level 25, Anion Gap 8, Blood Urea Nitrogen 20H, Creatinine 1.4H, Estimat Glomerular Filtration Rate , Glucose Level 135H, Hemoglobin A1c 6.8H, Calcium Level 8.5, Phosphorus Level 2.2L, Magnesium Level 1.8, Iron Level 14L, Total Iron Binding Capacity 122L, Percent Iron Saturation 11L, Unsaturated Iron Binding 108L, Ferritin 560H, Total Bilirubin 0.5, Aspartate Amino Transf ( AST/SGOT) 18, Alanine Aminotransferase (ALT/SGPT) 6L, Alkaline Phosphatase 50, Total Protein 6.9, Albumin 2.2L, Globulin 4.7, Albumin/Globulin Ratio 0.5L Current Medications Medications (Trade) Dose Ordered Sig/Nicole Route PRN Reason Start Time Stop Time Status Last Admin Dose Admin Acetaminophen (Tylenol) 650 mg Q4H PRN ORAL Mild Pain (Pain Scale 1-3) 08/11/18 07:15 09/10/18 07:14 Acetaminophen (Tylenol) 650 mg Q4H PRN ORAL temp>100 08/11/18 07:15 09/10/18 07:14 Acetaminophen/ Hydrocodone Bitart (Sneads 7.5/325) 1 tab Q4H PRN ORAL Moderate Pain (Pain Scale 4-6) 08/11/18 07:15 08/18/18 07:14 Atorvastatin Calcium (Lipitor) 10 mg BEDTIME ORAL 08/10/18 21:00 09/09/18 20:59 08/10/18 23:21 Cefazolin Sodium 1 gm/Dextrose 55 ml @ 110 mls/hr Q8HR IVPB 08/11/18 14:00 08/18/18 13:59 Dextrose/ Electrolytes 1,000 ml @ 75 mls/hr [id number] IV 08/11/18 10:00 09/10/18 09:59 08/11/18 10:51 Dextrose/Sodium Chloride 1,000 ml @ 75 mls/hr [id number] IV 08/09/18 17:00 09/08/18 16:59 08/10/18 18:41 Docusate Sodium (Colace) 100 mg THREE TIMES A DAY ORAL 08/09/18 18:00 09/08/18 17:59 08/11/18 12:44 Enoxaparin Sodium (Lovenox) 30 mg DAILY SUBQ 08/11/18 10:00 08/21/18 09:59 08/11/18 10:52 Ferrous Sulfate (Feosol) 325 mg THREE TIMES A DAY ORAL 08/11/18 09:00 09/10/18 08:59 08/11/18 12:43 Lisinopril (Zestril) 10 mg DAILY ORAL 08/12/18 09:00 09/11/18 08:59 Magnesium Hydroxide (Mom) 30 ml DAILYPRN PRN ORAL Constipation 08/11/18 07:15 09/10/18 07:14 Memantine (Namenda) 5 mg TWICE A DAY ORAL 08/09/18 18:00 09/08/18 17:59 08/10/18 17:14 Metoprolol Tartrate (Lopressor) 12.5 mg Q12HR ORAL 08/10/18 21:00 09/09/18 20:59 08/10/18 23:21 Pantoprazole (Protonix) 40 mg EVERY 12 HOURS IVP 08/09/18 21:00 09/08/18 20:59 08/11/18 10:51 Polyethylene Glycol (Miralax) 17 gm DAILYPRN PRN ORAL Constipation 08/09/18 14:00 09/08/18 13:59 Tamsulosin HCl (Flomax) 0.4 mg BEDTIME ORAL 08/09/18 21:00 09/08/18 20:59 08/10/18 23:20 Temazepam (Restoril) 15 mg HSPRN PRN ORAL Insomnia 08/09/18 17:00 08/16/18 16:59 Margie Britton MD August 11, 2018 13:26
--- NOTE | 2018-08-11 13:40 | Surgery Progress Note ---
Surgery Progress Note Subjective Additional Comments s/p left hip ORIF by ortho. seemingly comfortable. pain controlled. no n/v/f/ c. Objective Last 24 Hour Vital Signs Date Time Temp Pulse Resp B/P (MAP) Pulse Ox O2 Delivery O2 Flow Rate FiO2 08/11/18 12:00 98.0 93 20 104/50 (68) 98 08/11/18 09:59 Room Air 08/11/18 09:15 83 19 120/52 100 Nasal Cannula 3 08/11/18 09:10 81 16 118/48 99 Nasal Cannula 3 08/11/18 09:00 86 17 112/53 99 Nasal Cannula 3 08/11/18 08:55 87 22 115/56 99 Nasal Cannula 3 08/11/18 08:50 91 20 128/55 100 Simple Mask 6 08/11/18 08:45 89 18 124/50 100 Simple Mask 6 08/11/18 08:41 97.9 96 16 122/56 98 Simple Mask 6 08/11/18 08:40 93 16 100 08/11/18 04:00 97.9 104 20 112/55 (74) 98 08/11/18 00:00 99.9 97 20 102/43 (62) 96 08/10/18 23:21 104 117/61 08/10/18 21:00 Room Air 08/10/18 20:00 99.8 104 20 117/61 (79) 100 08/10/18 17:14 72 135/68 08/10/18 16:00 97.7 72 18 135/68 (90) 97 I&O Intake and Output 08/10/18 08/11/18 19:00 07:00 Intake Total 1187.5 ml 1037.5 ml Balance 1187.5 ml 1037.5 ml IV Total 587.5 ml 1037.5 ml Other 600 ml # Voids 3 3 # Bowel Movements 1 Dressing: dry Wound: clean Drains: other Cardiovascular: RSR Respiratory: clear Abdomen: soft, flat, present bowel sounds, non-distended Extremities: no tenderness, no cyanosis Laboratory Tests Test 08/11/18 05:00 White Blood Count 8.3 K/UL (4.8-10.8) Red Blood Count 3.71 M/UL (4.70-6.10) L Hemoglobin 10.4 G/DL (14.2-18.0) L Hematocrit 30.8 % (42.0-52.0) L Mean Corpuscular Volume 83 FL (80-99) Mean Corpuscular Hemoglobin 28.0 PG (27.0-31.0) Mean Corpuscular Hemoglobin Concent 33.7 G/DL (32.0-36.0) Red Cell Distribution Width 13.7 % (11.6-14.8) Platelet Count 363 K/UL (150-450) Mean Platelet Volume 6.0 FL (6.5-10.1) L Neutrophils (%) (Auto) 66.9 % (45.0-75.0) Lymphocytes (%) (Auto) 16.5 % (20.0-45.0) L Monocytes (%) (Auto) 13.3 % (1.0-10.0) H Eosinophils (%) (Auto) 2.4 % (0.0-3.0) Basophils (%) (Auto) 1.0 % (0.0-2.0) Sodium Level 139 MMOL/L (136-145) Potassium Level 3.6 MMOL/L (3.5-5.1) Chloride Level 106 MMOL/L (98-107) Carbon Dioxide Level 25 MMOL/L (21-32) Anion Gap 8 mmol/L (5-15) Blood Urea Nitrogen 20 mg/dL (7-18) H Creatinine 1.4 MG/DL (0.55-1.30) H Estimat Glomerular Filtration Rate mL/min (>60) Glucose Level 135 MG/DL (74-106) H Hemoglobin A1c 6.8 % (4.3-6.0) H Calcium Level 8.5 MG/DL (8.5-10.1) Phosphorus Level 2.2 MG/DL (2.5-4.9) L Magnesium Level 1.8 MG/DL (1.8-2.4) Iron Level 14 ug/dL (50-175) L Total Iron Binding Capacity 122 ug/dL (250-450) L Percent Iron Saturation 11 % (15-50) L Unsaturated Iron Binding 108 ug/dL (112-346) L Ferritin 560 NG/ML (8-388) H Total Bilirubin 0.5 MG/DL (0.2-1.0) Aspartate Amino Transf (AST/SGOT) 18 U/L (15-37) Alanine Aminotransferase (ALT/SGPT) 6 U/L (12-78) L Alkaline Phosphatase 50 U/L (46-116) Total Protein 6.9 G/DL (6.4-8.2) Albumin 2.2 G/DL (3.4-5.0) L Globulin 4.7 g/dL Albumin/Globulin Ratio 0.5 (1.0-2.7) L Plan Problems: (1) Anemia (2) MDRO (multiple drug resistant organisms) resistance (3) ATN (acute tubular necrosis) (4) Decubitus ulcer, heel, left, unstageable (5) Sepsis (6) UTI (urinary tract infection) (7) COPD (chronic obstructive pulmonary disease) (8) Balanoposthitis (9) Severe protein-calorie malnutrition (10) BPH (benign prostatic hyperplasia) (11) Phimosis (12) Fever (13) Decubitus ulcer Assessment & Plan: Patient presents with multiple wounds on admission. Right heel with DTI Sacral redness with seemingly healing prior wound/DTI left hip wound healing Tx Plan: Apply foam dressings to bilateral heels q3 days heel protectors off load pressure with pillow turn q2h air soft mattress encourage patient to mobilize when possible (14) Closed left hip fracture Assessment & Plan: s/p left hip orif by ortho recovering Bentley Enrique August 11, 2018 13:40
[2018-08-11] MEDS ORDERED: ceFAZolin sod 2 GM in D5W 110 ML IV SCH (14:00)
[2018-08-11] MEDS: D5NS 1,000 ML IV SCH (14:27)
[2018-08-11] MEDS: ceFAZolin sod 1 GM in D5W 55 ML IVPB SCH ×2 (14:27→21:30)
--- NOTE | 2018-08-11 15:59 | NUR ---
P.T Note: P.T evaluation completed and treatment initiated S/P L hip ORIF POD# 0. Please refer to P.T evaluation for current functional status. Pt is alert, O to self , place and situation but not to time. Pt is pleasant and cooperative/agreeable to participate in P.T evaluation despite pain on the L hip 5/10 limiting mobility performance ,safety and independence. Pt currently require constant verbal/manual cues and MAX A 1 for bed mobility and transfer mobilities. Pt was able to stand using the FWW with MAX support however unable to take steps. Skilled P.T service is warranted to improve strength, balance and endurance to increase safety and mobility independence. Recommend to return to SNF for further rehab. Thank you for this referral.
--- NOTE | 2018-08-11 16:15 | Operative Note - Dictated ---
DATE OF OPERATION: 08/11/2018 PREOPERATIVE DIAGNOSIS: Left hip intertrochanteric fracture. POSTOPERATIVE DIAGNOSIS: Left hip intertrochanteric fracture. PROCEDURE: Left hip open reduction and internal fixation using a short 125-degree gamma nail with a 95 mm lag screw. SURGEON: Eb Alcantar M.D. SPRAY APPLICATOR: Mary Sebastian PA-C. ANESTHESIOLOGIST: Juni Bowens M.D. ANESTHESIA: Spinal anesthesia. ESTIMATED BLOOD LOSS: Less than 100 mL. COMPLICATIONS: None. BRIEF HISTORY: The patient is a pleasant 78-year-old gentleman who had a mechanical fall and had a left-sided hip fracture. He was admitted. He had some medical issues that need to be optimized and this was done. After he was optimized and after full discussion of risks, benefits of surgery including infection, bleeding, neurovascular complication, possibility of malunion, possibility of nonunion, possibility of hardware failure, possible need for further surgery, possibility of DVT, PE and other complications that may arise, he opted for surgical treatment as described above. OPERATIVE PROCEDURE: The patient was brought to the operating room and was placed supine. All pressure points well padded. The patient was placed on a traction table with the left leg in traction and right leg in a well leg chen. The left hip was then prepped and draped in usual sterile fashion. The image intensifier was brought in and the fracture was reduced anatomically. Some traction was placed to get this reduction perfectly. Once this was completed, the leg was prepped and draped in usual sterile fashion, care was given to the surgical procedure. A 4 cm incision was made proximal through the trochanter. The incision was taken through gluteal fascia. The trochanter could be palpated and a guide pin was placed through the greater trochanter into the metaphyseal region across the fracture site. This was checked on AP and lateral appeared to be in great position. At this point, an opening reamer was used to open up the proximal insertion site of the nail. Again, this was checked on AP and lateral on the image intensifier and appeared to be in perfect position. At this point, the reamer was removed and the guidewire was removed and 125-degree angle short gamma nail was then placed in without any complication. The fracture reduction was near anatomical. At this point, a guide pin was placed through the lateral cortex of the femur into the neck of the femur into the head. Initially, this was slightly anterior. Subsequently, this was repositioned to be directly central on the lateral and central on the AP view. Measurements were made, 95 mm appeared to be the right size. The lateral cortex and the femoral neck were then drilled using 95 mm step reamer. Once this was completed, a 95 mm lag screw was placed in and the locking screw was locked on and then backed off by about 0.25 degree. Compression was obtained prior to putting the lag screw across. At this point, all wounds were thoroughly irrigated. The position of all hardware was checked and appeared to be perfect. The guide was then removed. Final x-rays were obtained and the hardware was in excellent position and the fracture was reduced well. All wounds were thoroughly irrigated using copious amount of fluid. The gluteal fascia was closed using #1 Vicryl suture. Subcutaneous tissue was closed using 2-0 Vicryl suture. Skin was closed with 3-0 Monocryl suture. All lap counts and instrument counts were correct. Preoperative antibiotics were given. A time-out was performed prior to proceeding with surgery. Eb Alcantar M.D. DR: SHABBIR JOB#: [id number] CC:
[2018-08-11] MEDS ORDERED: D5NS 1,000 ML IV SCH (17:50)
--- NOTE | 2018-08-11 17:51 | Nephrology Progress Note ---
Assessment/Plan Problem List: (1) ATN (acute tubular necrosis) (2) UTI (urinary tract infection) (3) Severe protein-calorie malnutrition (4) BPH (benign prostatic hyperplasia) (5) Phimosis (6) Closed left hip fracture Assessment: surgery 08/11 (7) Cardiomyopathy Assessment Acute on chronic renal failure- Cardiomyopathy UTI , Fever Closed left hip fracture Phimosis Plan Anemia agrawal- Hydrate Protonix monitor renal parameters per orders per ortho Global left ventricular hypokinesis. Distal septal and apical akinesis to extent visualized. Left ventricular ejection fraction estimated to be 30-35 %. Subjective ROS Limited/Unobtainable: No Constitutional: Reports: malaise, weakness Objective Objective Last 24 Hour Vital Signs Date Time Temp Pulse Resp B/P (MAP) Pulse Ox O2 Delivery O2 Flow Rate FiO2 08/11/18 12:00 98.0 93 20 104/50 (68) 98 08/11/18 09:59 Room Air 08/11/18 09:15 83 19 120/52 100 Nasal Cannula 3 08/11/18 09:10 81 16 118/48 99 Nasal Cannula 3 08/11/18 09:00 86 17 112/53 99 Nasal Cannula 3 08/11/18 08:55 87 22 115/56 99 Nasal Cannula 3 08/11/18 08:50 91 20 128/55 100 Simple Mask 6 08/11/18 08:45 89 18 124/50 100 Simple Mask 6 08/11/18 08:41 97.9 96 16 122/56 98 Simple Mask 6 08/11/18 08:40 93 16 100 08/11/18 04:00 97.9 104 20 112/55 (74) 98 08/11/18 00:00 99.9 97 20 102/43 (62) 96 08/10/18 23:21 104 117/61 08/10/18 21:00 Room Air 08/10/18 20:00 99.8 104 20 117/61 (79) 100 Intake and Output 08/10/18 08/11/18 18:59 06:59 Intake Total 1262.5 ml 1037.5 ml Balance 1262.5 ml 1037.5 ml IV Total 662.5 ml 1037.5 ml Other 600 ml # Voids 3 3 # Bowel Movements 1 Laboratory Tests 08/11/18 05:00: White Blood Count 8.3, Red Blood Count 3.71L, Hemoglobin 10.4L, Hematocrit 30.8L , Mean Corpuscular Volume 83, Mean Corpuscular Hemoglobin 28.0, Mean Corpuscular Hemoglobin Concent 33.7, Red Cell Distribution Width 13.7, Platelet Count 363, Mean Platelet Volume 6.0L, Neutrophils (%) (Auto) 66.9, Lymphocytes ( %) (Auto) 16.5L, Monocytes (%) (Auto) 13.3H, Eosinophils (%) (Auto) 2.4, Basophils (%) (Auto) 1.0, Sodium Level 139, Potassium Level 3.6, Chloride Level 106, Carbon Dioxide Level 25, Anion Gap 8, Blood Urea Nitrogen 20H, Creatinine 1.4H, Estimat Glomerular Filtration Rate , Glucose Level 135H, Hemoglobin A1c 6.8H, Calcium Level 8.5, Phosphorus Level 2.2L, Magnesium Level 1.8, Iron Level 14L, Total Iron Binding Capacity 122L, Percent Iron Saturation 11L, Unsaturated Iron Binding 108L, Ferritin 560H, Total Bilirubin 0.5, Aspartate Amino Transf ( AST/SGOT) 18, Alanine Aminotransferase (ALT/SGPT) 6L, Alkaline Phosphatase 50, Total Protein 6.9, Albumin 2.2L, Globulin 4.7, Albumin/Globulin Ratio 0.5L Height (Feet): 5 Height (Inches): 8.00 Weight (Pounds): 120 General Appearance: no apparent distress Cardiovascular: tachycardia Respiratory/Chest: decreased breath sounds Abdomen: soft Jose Guadalupe Santiago MD August 11, 2018 17:51
--- NOTE | 2018-08-11 19:21 | NUR ---
HAND-OFF: Report given to PAMELA Aquino.
[2018-08-11] MEDS: Tamsulosin 0.4mg cap ORAL SCH (20:19)
--- NOTE | 2018-08-11 20:30 | Consultation ---
DATE OF CONSULTATION: 08/10/2018 NOTE: POOR AUDIO PSYCHOTHERAPY CONSULTATION PROGRESS NOTE CONSULTING PHYSICIAN: Tacho Rivera PsyD. TREATING ATTENDING PHYSICIAN: Samir Cramer D.O. HISTORY OF PRESENT ILLNESS: The patient is a 78-year-old male patient from . The patient is going to the hospital for fracture of the left hip. The patient has had fever and some phimosis. The patient has been continued and medication in the past. The patient . Today, the patient is and agitated, complaining of . He states that he has . He denies suicidal, homicidal . He denies any auditory or visual hallucinations. He states that he has . He is more agitated. . PAST MEDICAL HISTORY: Include history of decubitus . ALLERGIES: The patient has no known drug allergies. SUBSTANCE ABUSE HISTORY: The patient denies history of alcohol use, illicit substance use, or smoking cigarettes. PSYCHIATRIC HISTORY: The patient has . SOCIAL HISTORY: The patient is a 78-year-old . PLAN: . Tacho Rivera PsyD. DR: LUCY JOB#: [id number] CC:
--- NOTE | 2018-08-11 20:40 | NUR ---
NURSE NOTES: Dr. Krueger made aware of patient's increased heart rate. Checked apical mannually, 126bpm. Scheduled lopressor given. Dr. Krueger ordered to increase lopressor to 25mg bid. Will carry out order.
[2018-08-11] MEDS ORDERED: Metoprolol Tartrate 12.5mg TAB ORAL SCH (21:11)
--- NOTE | 2018-08-11 21:30 | NUR ---
NURSE NOTES: Patient noted to have increased coughing when taking pills/medications with thin liquid water. Dr. Cramer notified. Ordered for patient to be NPO for now and ST eval tomorrow. Will carry out order. Patient HOB kept elevated> 40degrees. SpO2 stable at 95% in room air. Will monitor.
[2018-08-12] VITALS: BP 111/62
[2018-08-12 04:03] VITALS: BP 111/63
[2018-08-12] MEDS: ceFAZolin sod 1 GM in D5W 55 ML IVPB SCH ×3 (05:04→21:05)
[2018-08-12 06:52] LABS: ANION GAP 8 mmol/L (5-15); BLOOD UREA NITROGEN 16 mg/dL (7-18); CALCIUM 8.5 MG/DL (8.5-10.1); CARBON DIOXIDE 24 MMOL/L (21-32); CHLORIDE 103 MMOL/L (98-107); CREATININE 1.4 MG/DL (0.55-1.30); POTASSIUM 3.9 MMOL/L (3.5-5.1); SODIUM 135 MMOL/L (136-145)
--- NOTE | 2018-08-12 07:00 | Orthopedic Progress Note ---
Orthopedic - Progress Note Subjective Symptoms: c/o post-op hip pain Objective Laboratory Tests Test 08/12/18 05:10 Sodium Level 135 MMOL/L (136-145) L Potassium Level 3.9 MMOL/L (3.5-5.1) Chloride Level 103 MMOL/L (98-107) Carbon Dioxide Level 24 MMOL/L (21-32) Anion Gap 8 mmol/L (5-15) Blood Urea Nitrogen 16 mg/dL (7-18) Creatinine 1.4 MG/DL (0.55-1.30) H Estimat Glomerular Filtration Rate mL/min (>60) Glucose Level 132 MG/DL (74-106) H Calcium Level 8.5 MG/DL (8.5-10.1) Last 24 Hour Vital Signs Date Time Temp Pulse Resp B/P (MAP) Pulse Ox O2 Delivery O2 Flow Rate FiO2 08/12/18 04:03 97.9 111 20 111/63 (79) 94 08/12/18 00:00 98.0 116 20 111/62 (78) 96 08/11/18 21:30 120 124/60 08/11/18 21:00 Room Air 08/11/18 20:19 126 124/60 08/11/18 20:00 97.7 132 20 124/60 (81) 94 08/11/18 16:00 97.5 105 20 129/60 (83) 98 08/11/18 12:00 98.0 93 20 104/50 (68) 98 08/11/18 09:59 Room Air 08/11/18 09:15 83 19 120/52 100 Nasal Cannula 3 08/11/18 09:10 81 16 118/48 99 Nasal Cannula 3 08/11/18 09:00 86 17 112/53 99 Nasal Cannula 3 08/11/18 08:55 87 22 115/56 99 Nasal Cannula 3 08/11/18 08:50 91 20 128/55 100 Simple Mask 6 08/11/18 08:45 89 18 124/50 100 Simple Mask 6 08/11/18 08:41 97.9 96 16 122/56 98 Simple Mask 6 08/11/18 08:40 93 16 100 Intake and Output 08/11/18 08/12/18 19:00 07:00 Intake Total 1820 ml 490 ml Output Total 30 ml Balance 1790 ml 490 ml Intake Oral 700 ml IV Total 1120 ml 490 ml Estimated Blood Loss 30 ml # Voids 3 2 Laboratory Tests Test 08/12/18 05:10 Sodium Level 135 MMOL/L (136-145) L Potassium Level 3.9 MMOL/L (3.5-5.1) Chloride Level 103 MMOL/L (98-107) Carbon Dioxide Level 24 MMOL/L (21-32) Anion Gap 8 mmol/L (5-15) Blood Urea Nitrogen 16 mg/dL (7-18) Creatinine 1.4 MG/DL (0.55-1.30) H Estimat Glomerular Filtration Rate mL/min (>60) Glucose Level 132 MG/DL (74-106) H Calcium Level 8.5 MG/DL (8.5-10.1) Wound: clean, dry, intact Drains: none Neuro Status: normal Vascular Status: normal Additional Comments xray reviewed Assessment Post-op Diagnosis POD 1 Procedure Performed left hip orif Plan Plan: PT, pain management, discharge plan - f/u dr brand as outpt in 2 weeks Mary Sebastian August 12, 2018 07:00
--- NOTE | 2018-08-12 07:23 | NUR ---
HAND-OFF: Report given to Mary SANTIAGO.
--- NOTE | 2018-08-12 07:30 | NUR ---
NURSE NOTES: Received patient in bed, awake,verbally responsive. Patient denies any pain or discomfort @ this time. Surgical dressing intact. IV intact, no s/s of infiltration. Bed is in lowest position and locked. Patient is on NPO @ this time. Call light within reach, bed alar is on. Will continue plan of care.
[2018-08-12 08:00] VITALS: BP 118/62
--- NOTE | 2018-08-12 08:30 | Pulmonology Progress Note ---
Assessment/Plan Assessment/Plan ASSESSMENT Left hip fracture Status post left hip open reduction internal fixation Cardiomyopathy with ejection fraction 30 to 35% Proteus UTI COPD BPH Severe protein calorie malnutrition Acute tubular necrosis/acute on chronic renal failure UTI Phimosis Decubitus ulcer right heel. 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 re protein supplements implemented in plan of care swallow eval pending UCX + Proteus , abx as per ID recs colony count 50-60 currently no fever, no leukocytosis , BCX negative initial leukocytosis resolved nephro follows, creat trending down from 1.6 down to 1.4 , probably baseline bowel regimen supportive care DNR/DNI status case discussed and evaluated by supervising physician Subjective Allergies: Coded Allergies: No Known Allergies (Unverified , 07/19/17) Subjective leuk resolved, afebrile s/p ORIF L hip denies pain Objective Last 24 Hour Vital Signs Date Time Temp Pulse Resp B/P (MAP) Pulse Ox O2 Delivery O2 Flow Rate FiO2 08/12/18 04:03 97.9 111 20 111/63 (79) 94 08/12/18 00:00 98.0 116 20 111/62 (78) 96 08/11/18 21:30 120 124/60 08/11/18 21:00 Room Air 08/11/18 20:19 126 124/60 08/11/18 20:00 97.7 132 20 124/60 (81) 94 08/11/18 16:00 97.5 105 20 129/60 (83) 98 08/11/18 12:00 98.0 93 20 104/50 (68) 98 08/11/18 09:59 Room Air 08/11/18 09:15 83 19 120/52 100 Nasal Cannula 3 08/11/18 09:10 81 16 118/48 99 Nasal Cannula 3 08/11/18 09:00 86 17 112/53 99 Nasal Cannula 3 08/11/18 08:55 87 22 115/56 99 Nasal Cannula 3 08/11/18 08:50 91 20 128/55 100 Simple Mask 6 08/11/18 08:45 89 18 124/50 100 Simple Mask 6 08/11/18 08:41 97.9 96 16 122/56 98 Simple Mask 6 08/11/18 08:40 93 16 100 Intake and Output 08/11/18 08/12/18 19:00 07:00 Intake Total 1820 ml 530 ml Output Total 30 ml Balance 1790 ml 530 ml Intake Oral 700 ml IV Total 1120 ml 530 ml Estimated Blood Loss 30 ml # Voids 3 2 General Appearance: no acute distress, other - awake, responsive, confused HEENT: normocephalic, atraumatic, anicteric, mucous membranes moist Respiratory/Chest: lungs clear, no respiratory distress Cardiovascular: normal rate Abdomen: normal bowel sounds, soft, non tender Extremities: no edema, pedal pulses normal Skin: other - L hip dressing C/D/I Neurologic/Psychiatric: abnormal gait - bedriden , alert, responsive - confused Musculoskeletal: atrophy - BLE Laboratory Tests 08/12/18 05:10: Sodium Level 135L, Potassium Level 3.9, Chloride Level 103, Carbon Dioxide Level 24, Anion Gap 8, Blood Urea Nitrogen 16, Creatinine 1.4H, Estimat Glomerular Filtration Rate , Glucose Level 132H, Calcium Level 8.5 Current Medications Medications (Trade) Dose Ordered Sig/Nicole Route PRN Reason Start Time Stop Time Status Last Admin Dose Admin Acetaminophen (Tylenol) 650 mg Q4H PRN ORAL Mild Pain (Pain Scale 1-3) 08/11/18 07:15 09/10/18 07:14 Acetaminophen (Tylenol) 650 mg Q4H PRN ORAL temp>100 08/11/18 07:15 09/10/18 07:14 Acetaminophen/ Hydrocodone Bitart ([place] 7.5/325) 1 tab Q4H PRN ORAL Moderate Pain (Pain Scale 4-6) 08/11/18 07:15 08/18/18 07:14 Atorvastatin Calcium (Lipitor) 10 mg BEDTIME ORAL 08/10/18 21:00 09/09/18 20:59 08/11/18 20:19 Cefazolin Sodium 1 gm/Dextrose 55 ml @ 110 mls/hr Q8HR IVPB 08/11/18 14:00 08/18/18 13:59 08/12/18 05:04 Dextrose/Sodium Chloride 1,000 ml @ 40 mls/hr Q24H IV 08/11/18 17:50 09/10/18 17:49 08/11/18 18:02 Docusate Sodium (Colace) 100 mg THREE TIMES A DAY ORAL 08/09/18 18:00 09/08/18 17:59 08/11/18 17:07 Enoxaparin Sodium (Lovenox) 30 mg DAILY SUBQ 08/11/18 10:00 08/21/18 09:59 08/11/18 10:52 Lisinopril (Zestril) 10 mg DAILY ORAL 08/12/18 09:00 09/11/18 08:59 Magnesium Hydroxide (Mom) 30 ml DAILYPRN PRN ORAL Constipation 08/11/18 07:15 09/10/18 07:14 Memantine (Namenda) 5 mg TWICE A DAY ORAL 08/09/18 18:00 09/08/18 17:59 08/11/18 17:07 Metoprolol Tartrate (Lopressor) 25 mg Q12HR ORAL 08/12/18 09:00 09/09/18 20:59 Pantoprazole (Protonix) 40 mg EVERY 12 HOURS ORAL 08/11/18 21:00 09/10/18 20:59 08/11/18 20:19 Polyethylene Glycol (Miralax) 17 gm DAILYPRN PRN ORAL Constipation 08/09/18 14:00 09/08/18 13:59 Tamsulosin HCl (Flomax) 0.4 mg BEDTIME ORAL 08/09/18 21:00 09/08/18 20:59 08/11/18 20:19 Temazepam (Restoril) 15 mg HSPRN PRN ORAL Insomnia 08/09/18 17:00 08/16/18 16:59 Aster Christensen NP August 12, 2018 08:30
[2018-08-12] MEDS: Docusate 100mg cap ORAL SCH ×3 (08:38→17:38)
[2018-08-12] MEDS: Memantine 5 MG TAB ORAL SCH (08:38)
[2018-08-12] MEDS: Metoprolol 25mg tab ORAL SCH ×2 (08:38→20:21)
[2018-08-12] MEDS: Enoxaparin 30mg Inj SUBQ SCH (08:39)
[2018-08-12] MEDS: Lisinopril 10mg tab ORAL SCH (08:39)
--- NOTE | 2018-08-12 08:39 | General Progress Note ---
Assessment/Plan Problem List: (1) UTI (urinary tract infection) ICD Codes: N39.0 - Urinary tract infection, site not specified SNOMED: 58963114 (2) Decubitus ulcer, heel, left, unstageable ICD Codes: L89.620 - Pressure ulcer of left heel, unstageable SNOMED: 346584449 (3) Phimosis ICD Codes: N47.1 - Phimosis SNOMED: 848445770 (4) Fever ICD Codes: R50.9 - Fever, unspecified SNOMED: 000623858 Qualifiers: Qualified Codes: R50.9 - Fever, unspecified (5) Closed left hip fracture ICD Codes: S72.002A - Fracture of unspecified part of neck of left femur, initial encounter for closed fracture SNOMED: 947835343 Qualifiers: Qualified Codes: S72.002A - Fracture of unspecified part of neck of left femur, initial encounter for closed fracture (6) COPD (chronic obstructive pulmonary disease) ICD Codes: J44.9 - Chronic obstructive pulmonary disease, unspecified SNOMED: 47381153 Status: stable, progressing Assessment/Plan: pt diet abx cbc bmp am aru eval Subjective Constitutional: Reports: weakness Allergies: Coded Allergies: No Known Allergies (Unverified , 07/19/17) All Systems: reviewed and negative except above Subjective sl hip pain s/p sx Objective Last 24 Hour Vital Signs Date Time Temp Pulse Resp B/P (MAP) Pulse Ox O2 Delivery O2 Flow Rate FiO2 08/12/18 04:03 97.9 111 20 111/63 (79) 94 08/12/18 00:00 98.0 116 20 111/62 (78) 96 08/11/18 21:30 120 124/60 08/11/18 21:00 Room Air 08/11/18 20:19 126 124/60 08/11/18 20:00 97.7 132 20 124/60 (81) 94 08/11/18 16:00 97.5 105 20 129/60 (83) 98 08/11/18 12:00 98.0 93 20 104/50 (68) 98 08/11/18 09:59 Room Air 08/11/18 09:15 83 19 120/52 100 Nasal Cannula 3 08/11/18 09:10 81 16 118/48 99 Nasal Cannula 3 08/11/18 09:00 86 17 112/53 99 Nasal Cannula 3 08/11/18 08:55 87 22 115/56 99 Nasal Cannula 3 08/11/18 08:50 91 20 128/55 100 Simple Mask 6 08/11/18 08:45 89 18 124/50 100 Simple Mask 6 08/11/18 08:41 97.9 96 16 122/56 98 Simple Mask 6 08/11/18 08:40 93 16 100 Intake and Output 08/11/18 08/12/18 19:00 07:00 Intake Total 1820 ml 530 ml Output Total 30 ml Balance 1790 ml 530 ml Intake Oral 700 ml IV Total 1120 ml 530 ml Estimated Blood Loss 30 ml # Voids 3 2 Laboratory Tests 08/12/18 05:10: Sodium Level 135L, Potassium Level 3.9, Chloride Level 103, Carbon Dioxide Level 24, Anion Gap 8, Blood Urea Nitrogen 16, Creatinine 1.4H, Estimat Glomerular Filtration Rate , Glucose Level 132H, Calcium Level 8.5 Height (Feet): 5 Height (Inches): 8.00 Weight (Pounds): 120 General Appearance: lethargic EENT: normal ENT inspection Neck: normal alignment Cardiovascular: normal peripheral pulses, normal rate, regular rhythm Respiratory/Chest: chest wall non-tender, lungs clear, normal breath sounds Abdomen: normal bowel sounds, non tender, soft Extremities: normal inspection Edema: no edema noted Arm (L), no edema noted Arm (R), no edema noted Leg (L), no edema noted Leg (R), no edema noted Pedal (L), no edema noted Pedal (R), no edema noted Generalized Neurologic: responsive, motor weakness Skin: normal pigmentation, warm/dry Samir Cramer DO August 12, 2018 08:39
[2018-08-12] MEDS ORDERED: Lisinopril 10mg tab ORAL SCH (09:00)
--- NOTE | 2018-08-12 10:30 | 48 Hour Post Anesthesia Eval ---
Post Anesthesia Evaluation Procedure: ORIF L Hip Date of Evaluation: August 12, 2018 Time of Evaluation: 10:30 Blood Pressure Systolic: 118 0: 62 Pulse Rate: 70 Respiratory Rate: 14 O2 Sat by Pulse Oximetry: 98 Airway: patent Nausea: No Vomiting: No Hydration Status: adequate Cardiopulmonary Status: stable Mental Status/LOC: patient returned to baseline Post-Anesthesia Complications: none Follow-up care needed: N/A Sana Kim CRNA August 12, 2018 10:30
--- NOTE | 2018-08-12 11:12 | NUR ---
CHARGE NURSE NOTES: DR. ANDRE AND DR. MEJIA MADE AWARE, PT NOTED WITH TEMP 100.5 DEG F.
--- NOTE | 2018-08-12 11:19 | Infectious Diseases Prog Note ---
Assessment/Plan Assessment/Plan ASSESSMENT: The patient is a 78-year-old male with, Left hip intertrochanteric fracture. Low-grade feverx 1 ( postop ) probable urinary tract infection UCx: 50 K P Mirabilis Hip Fx 5/3 Sp L Hip ORIF BPH Chronic obstructive pulmonary disease Diabetes History of chronic left shoulder dislocation Dementia Cardiomyopathy with ejection fraction 30 to 35% PLAN: Cont the patient on IV Ancef d# 2/ 7 , upon DC will change to Keflex 5/3 Sp IV Zosyn d# 3 Monitor CBC Monitor BMP. Monitor cultures (blood) Monitor chest x-ray Ortho fup Subjective Allergies: Coded Allergies: No Known Allergies (Unverified , 07/19/17) Subjective low grade fever x 1 Objective Vital Signs Last 24 Hour Vital Signs Date Time Temp Pulse Resp B/P (MAP) Pulse Ox O2 Delivery O2 Flow Rate FiO2 08/12/18 10:30 70 14 98 08/12/18 09:08 99.2 08/12/18 09:00 Room Air 08/12/18 08:39 118/62 08/12/18 08:38 113 118/62 08/12/18 08:00 100.5 113 18 118/62 (80) 94 08/12/18 04:03 97.9 111 20 111/63 (79) 94 08/12/18 00:00 98.0 116 20 111/62 (78) 96 08/11/18 21:30 120 124/60 08/11/18 21:00 Room Air 08/11/18 20:19 126 124/60 08/11/18 20:00 97.7 132 20 124/60 (81) 94 08/11/18 16:00 97.5 105 20 129/60 (83) 98 08/11/18 12:00 98.0 93 20 104/50 (68) 98 Height (Feet): 5 Height (Inches): 8.00 Weight (Pounds): 120 HEENT: anicteric Respiratory/Chest: normal breath sounds Cardiovascular: normal rate Abdomen: no organomegaly Laboratory Tests Test 08/12/18 05:10 Sodium Level 135 MMOL/L (136-145) L Potassium Level 3.9 MMOL/L (3.5-5.1) Chloride Level 103 MMOL/L (98-107) Carbon Dioxide Level 24 MMOL/L (21-32) Anion Gap 8 mmol/L (5-15) Blood Urea Nitrogen 16 mg/dL (7-18) Creatinine 1.4 MG/DL (0.55-1.30) H Estimat Glomerular Filtration Rate mL/min (>60) Glucose Level 132 MG/DL (74-106) H Calcium Level 8.5 MG/DL (8.5-10.1) Current Medications Medications (Trade) Dose Ordered Sig/Nicole Route PRN Reason Start Time Stop Time Status Last Admin Dose Admin Acetaminophen (Tylenol) 650 mg Q4H PRN ORAL temp>100 08/11/18 07:15 09/10/18 07:14 08/12/18 08:38 Acetaminophen (Tylenol) 650 mg Q4H PRN ORAL Mild Pain (Pain Scale 1-3) 08/11/18 07:15 09/10/18 07:14 Acetaminophen/ Hydrocodone Bitart ([place] 7.5/325) 1 tab Q4H PRN ORAL Moderate Pain (Pain Scale 4-6) 08/11/18 07:15 08/18/18 07:14 Atorvastatin Calcium (Lipitor) 10 mg BEDTIME ORAL 08/10/18 21:00 09/09/18 20:59 08/11/18 20:19 Cefazolin Sodium 1 gm/Dextrose 55 ml @ 110 mls/hr Q8HR IVPB 08/11/18 14:00 08/18/18 13:59 08/12/18 05:04 Dextrose/Sodium Chloride 1,000 ml @ 40 mls/hr Q24H IV 08/11/18 17:50 09/10/18 17:49 08/11/18 18:02 Docusate Sodium (Colace) 100 mg THREE TIMES A DAY ORAL 08/09/18 18:00 09/08/18 17:59 08/12/18 08:38 Enoxaparin Sodium (Lovenox) 30 mg DAILY SUBQ 08/11/18 10:00 08/21/18 09:59 08/12/18 08:39 Lisinopril (Zestril) 10 mg DAILY ORAL 08/12/18 09:00 09/11/18 08:59 08/12/18 08:39 Magnesium Hydroxide (Mom) 30 ml DAILYPRN PRN ORAL Constipation 08/11/18 07:15 6/2/19 07:14 Memantine (Namenda) 5 mg TWICE A DAY ORAL 08/09/18 18:00 09/08/18 17:59 08/12/18 08:38 Metoprolol Tartrate (Lopressor) 25 mg Q12HR ORAL 08/12/18 09:00 09/09/18 20:59 08/12/18 08:38 Pantoprazole (Protonix) 40 mg EVERY 12 HOURS ORAL 08/11/18 21:00 09/10/18 20:59 08/12/18 08:38 Polyethylene Glycol (Miralax) 17 gm DAILYPRN PRN ORAL Constipation 08/09/18 14:00 09/08/18 13:59 Tamsulosin HCl (Flomax) 0.4 mg BEDTIME ORAL 08/09/18 21:00 09/08/18 20:59 08/11/18 20:19 Temazepam (Restoril) 15 mg HSPRN PRN ORAL Insomnia 08/09/18 17:00 08/16/18 16:59 Gino James MD August 12, 2018 11:19
[2018-08-12 12:00] VITALS: BP 108/56
--- NOTE | 2018-08-12 12:55 | Surgery Progress Note ---
Surgery Progress Note Subjective Symptoms: improved, tolerating diet, passing flatus Additional Comments pain controlled no n/v/f/c comfortable talkative. sometimes refuses certain meds and diet Objective Last 24 Hour Vital Signs Date Time Temp Pulse Resp B/P (MAP) Pulse Ox O2 Delivery O2 Flow Rate FiO2 08/12/18 12:00 98.1 91 20 108/56 (73) 95 08/12/18 10:30 70 14 98 08/12/18 09:08 99.2 08/12/18 09:00 Room Air 08/12/18 08:39 118/62 08/12/18 08:38 113 118/62 08/12/18 08:00 100.5 113 18 118/62 (80) 94 08/12/18 04:03 97.9 111 20 111/63 (79) 94 08/12/18 00:00 98.0 116 20 111/62 (78) 96 08/11/18 21:30 120 124/60 08/11/18 21:00 Room Air 08/11/18 20:19 126 124/60 08/11/18 20:00 97.7 132 20 124/60 (81) 94 08/11/18 16:00 97.5 105 20 129/60 (83) 98 I&O Intake and Output 08/11/18 08/12/18 19:00 07:00 Intake Total 1820 ml 530 ml Output Total 30 ml Balance 1790 ml 530 ml Intake Oral 700 ml IV Total 1120 ml 530 ml Estimated Blood Loss 30 ml # Voids 3 2 Dressing: dry Wound: clean Drains: other Cardiovascular: RSR Respiratory: clear Abdomen: soft, flat, non-tender, present bowel sounds Extremities: no cyanosis Laboratory Tests Test 08/12/18 05:10 Sodium Level 135 MMOL/L (136-145) L Potassium Level 3.9 MMOL/L (3.5-5.1) Chloride Level 103 MMOL/L (98-107) Carbon Dioxide Level 24 MMOL/L (21-32) Anion Gap 8 mmol/L (5-15) Blood Urea Nitrogen 16 mg/dL (7-18) Creatinine 1.4 MG/DL (0.55-1.30) H Estimat Glomerular Filtration Rate mL/min (>60) Glucose Level 132 MG/DL (74-106) H Calcium Level 8.5 MG/DL (8.5-10.1) Plan Problems: (1) Anemia (2) MDRO (multiple drug resistant organisms) resistance (3) ATN (acute tubular necrosis) (4) Decubitus ulcer, heel, left, unstageable (5) Sepsis (6) UTI (urinary tract infection) (7) COPD (chronic obstructive pulmonary disease) (8) Balanoposthitis (9) Severe protein-calorie malnutrition (10) BPH (benign prostatic hyperplasia) (11) Phimosis (12) Fever (13) Decubitus ulcer Assessment & Plan: Patient presents with multiple wounds on admission. Right heel with DTI Sacral redness with seemingly healing prior wound/DTI left hip wound healing Tx Plan: Apply foam dressings to bilateral heels q3 days heel protectors off load pressure with pillow turn q2h air soft mattress encourage patient to mobilize when possible (14) Closed left hip fracture Assessment & Plan: s/p left hip orif by ortho recovering Bentley Enrique August 12, 2018 12:55
--- NOTE | 2018-08-12 13:06 | Nephrology Progress Note ---
Assessment/Plan Problem List: (1) ATN (acute tubular necrosis) (2) UTI (urinary tract infection) (3) Severe protein-calorie malnutrition (4) BPH (benign prostatic hyperplasia) (5) Phimosis (6) Closed left hip fracture Assessment: surgery 08/11 (7) Cardiomyopathy Assessment Acute on chronic renal failure- Cardiomyopathy UTI , Fever Closed left hip fracture Phimosis Plan Dc IV Anemia agrawal- Protonix monitor renal parameters per orders per ortho Global left ventricular hypokinesis. Distal septal and apical akinesis to extent visualized. Left ventricular ejection fraction estimated to be 30-35 %. Subjective ROS Limited/Unobtainable: No Objective Objective Last 24 Hour Vital Signs Date Time Temp Pulse Resp B/P (MAP) Pulse Ox O2 Delivery O2 Flow Rate FiO2 08/12/18 12:00 98.1 91 20 108/56 (73) 95 08/12/18 10:30 70 14 98 08/12/18 09:08 99.2 08/12/18 09:00 Room Air 08/12/18 08:39 118/62 08/12/18 08:38 113 118/62 08/12/18 08:00 100.5 113 18 118/62 (80) 94 08/12/18 04:03 97.9 111 20 111/63 (79) 94 08/12/18 00:00 98.0 116 20 111/62 (78) 96 08/11/18 21:30 120 124/60 08/11/18 21:00 Room Air 08/11/18 20:19 126 124/60 08/11/18 20:00 97.7 132 20 124/60 (81) 94 08/11/18 16:00 97.5 105 20 129/60 (83) 98 Intake and Output 08/11/18 08/12/18 19:00 07:00 Intake Total 1820 ml 530 ml Output Total 30 ml Balance 1790 ml 530 ml Intake Oral 700 ml IV Total 1120 ml 530 ml Estimated Blood Loss 30 ml # Voids 3 2 Laboratory Tests 08/12/18 05:10: Sodium Level 135L, Potassium Level 3.9, Chloride Level 103, Carbon Dioxide Level 24, Anion Gap 8, Blood Urea Nitrogen 16, Creatinine 1.4H, Estimat Glomerular Filtration Rate , Glucose Level 132H, Calcium Level 8.5 Height (Feet): 5 Height (Inches): 8.00 Weight (Pounds): 120 General Appearance: no apparent distress Cardiovascular: normal rate Respiratory/Chest: lungs clear Abdomen: soft Jose Guadalupe Santiago MD August 12, 2018 13:06
[2018-08-12] MEDS ORDERED: LORazepam 0.5mg tab ORAL PRN (14:30)
[2018-08-12 16:00] VITALS: BP 102/57
--- NOTE | 2018-08-12 16:16 | Cardiac Electrophysiology PN ---
Assessment/Plan Assessment/Plan 1. Cardiomyopathy with ejection fraction of 30% to 35% based on the echocardiogram. Denies any prior myocardial infarction or congestive heart failure. On Lopressor 12.5 bid and Lisinopril 5 daily Hold off on Lasix as the patient clinically is euvolemic. 2. Renal failure. Creatinine of 1.5. 3. Hip fracture.S/P ORIF Subjective Subjective Had ORIF. Alert in NAD. No CP Objective Last 24 Hour Vital Signs Date Time Temp Pulse Resp B/P (MAP) Pulse Ox O2 Delivery O2 Flow Rate FiO2 08/12/18 16:00 98.1 90 18 102/57 (72) 97 08/12/18 12:00 98.1 91 20 108/56 (73) 95 08/12/18 10:30 70 14 98 08/12/18 09:08 99.2 08/12/18 09:00 Room Air 08/12/18 08:39 118/62 08/12/18 08:38 113 118/62 08/12/18 08:00 100.5 113 18 118/62 (80) 94 08/12/18 04:03 97.9 111 20 111/63 (79) 94 08/12/18 00:00 98.0 116 20 111/62 (78) 96 08/11/18 21:30 120 124/60 08/11/18 21:00 Room Air 08/11/18 20:19 126 124/60 08/11/18 20:00 97.7 132 20 124/60 (81) 94 Intake and Output 08/11/18 08/12/18 19:00 07:00 Intake Total 1820 ml 530 ml Output Total 30 ml Balance 1790 ml 530 ml Intake Oral 700 ml IV Total 1120 ml 530 ml Estimated Blood Loss 30 ml # Voids 3 2 Laboratory Tests Test 08/12/18 05:10 Sodium Level 135 MMOL/L (136-145) L Potassium Level 3.9 MMOL/L (3.5-5.1) Chloride Level 103 MMOL/L (98-107) Carbon Dioxide Level 24 MMOL/L (21-32) Anion Gap 8 mmol/L (5-15) Blood Urea Nitrogen 16 mg/dL (7-18) Creatinine 1.4 MG/DL (0.55-1.30) H Estimat Glomerular Filtration Rate mL/min (>60) Glucose Level 132 MG/DL (74-106) H Calcium Level 8.5 MG/DL (8.5-10.1) Objective HEAD AND NECK: Showed no jugular venous distention. LUNGS: Clear. CARDIOVASCULAR: Shows regular S1 and S2 with no gallop or murmur. ABDOMEN: Soft. EXTREMITIES: Status post left hip ORIF Charly Krueger MD August 12, 2018 16:16
[2018-08-12] MEDS: Memantine 10mg tab ORAL SCH (17:38)
[2018-08-12] MEDS ORDERED: D5NS 1,000 ML IV SCH (18:00)
--- NOTE | 2018-08-12 19:40 | NUR ---
HAND-OFF: Report given to Miles.
[2018-08-12 20:00] VITALS: BP 100/55
--- NOTE | 2018-08-12 20:00 | NUR ---
NURSE NOTES: Patient received in bed, awake and alert. Left hip dressing dry and intact. IV is intact and patent, IVF infusing. Patient kept NPO d/t aspiration precaution. Call light in reach. Will continue POC.
[2018-08-12] MEDS: Tamsulosin 0.4mg cap ORAL SCH (20:21)
--- NOTE | 2018-08-12 22:00 | NUR ---
NURSE NOTES: Unable to give protonix because not crushable. Patient coughs when given whole pills. Crushable pills crushed and given to patient, tolerated well. Dr. Cramer made aware that ST not available during weekend. Received order to advance patient as tolerated and change protonix to prevacid. Will carry out orders.
[2018-08-13] VITALS: BP 124/50
--- NOTE | 2018-08-13 02:59 | NUR ---
HAND-OFF: Report given to Sahra SANTIAGO.
[2018-08-13 04:00] VITALS: BP 117/54
[2018-08-13] MEDS: ceFAZolin sod 1 GM in D5W 55 ML IVPB SCH ×3 (05:26→21:09)
[2018-08-13 07:12] LABS: ANION GAP 9 mmol/L (5-15); BLOOD UREA NITROGEN 14 mg/dL (7-18); CALCIUM 8.5 MG/DL (8.5-10.1); CARBON DIOXIDE 25 MMOL/L (21-32); CHLORIDE 106 MMOL/L (98-107); CREATININE 1.3 MG/DL (0.55-1.30); POTASSIUM 3.5 MMOL/L (3.5-5.1); SODIUM 140 MMOL/L (136-145)
[2018-08-13 07:24] LABS: BASOPHILS % (AUTO) 0.8 % (0.0-2.0); EOSINOPHILS % (AUTO) 2.3 % (0.0-3.0); HEMATOCRIT 28.8 % (42.0-52.0); HEMOGLOBIN 9.7 G/DL (14.2-18.0); LYMPHOCYTES % (AUTO) 10.3 % (20.0-45.0); MEAN CORPUSCULAR VOLUME 83 FL (80-99); MONOCYTES % (AUTO) 9.6 % (1.0-10.0); PLATELET COUNT 368 K/UL (150-450); RED BLOOD COUNT 3.48 M/UL (4.70-6.10); RED CELL DISTRIBUTION WIDTH 13.4 % (11.6-14.8); WHITE BLOOD COUNT 9.3 K/UL (4.8-10.8)
--- NOTE | 2018-08-13 07:36 | NUR ---
HAND-OFF: Report given to PAMELA Chatman.
--- NOTE | 2018-08-13 07:43 | NUR ---
NURSE NOTES: Patient received sleeping in bed No signs of respiratory distress or pain observed. IV site on right arm patent and intact, fluids running at 50cc/hr. Condom catheter observed. Bed locked in lowest position, HOB elevated for aspiration precautions. Call light placed within reach, will continue to monitor.
[2018-08-13 08:00] VITALS: BP 125/62
--- NOTE | 2018-08-13 08:01 | Pulmonology Progress Note ---
Assessment/Plan Assessment/Plan ASSESSMENT Left hip fracture Status post left hip open reduction internal fixation Cardiomyopathy with ejection fraction 30 to 35% Proteus UTI COPD BPH Severe protein calorie malnutrition Acute tubular necrosis/acute on chronic renal failure UTI Phimosis Decubitus ulcer right heel. un-stageable , present on admission PLAN OF CARE Med Surg floor s/p ORIF L hip pain management DVT prophylaxis ECHO with EF 30 to 35% patient denies chest pain or shortness of breath and able to lie flat pt denies prior history of myocardial infarction or congestive heart failure anti-failure regimen with BB continued, added low-dose of GUILLERMO inhibitor -as per cardio recs Lasix on hold as patient remains clinically euvolemic supplemental O2 PRN to keep pulse ox above 92% , pulmonary toilet prn wound care as per surgeon recs for pressure ulcer present on admission lead java j2ee developer recommendations re protein supplements implemented in plan of care swallow eval pending UCX + Proteus , abx as per ID recs colony count 50-60 currently no fever, no leukocytosis , BCX negative initial leukocytosis resolved nephro follows, creat trending down to 1.3 today bowel regimen supportive care DNR/DNI status case discussed and evaluated by supervising physician Subjective Allergies: Coded Allergies: No Known Allergies (Unverified , 07/19/17) Subjective leuk resolved, afebrile s/p ORIF L hip denies pain no signs of resp distress Objective Last 24 Hour Vital Signs Date Time Temp Pulse Resp B/P (MAP) Pulse Ox O2 Delivery O2 Flow Rate FiO2 08/13/18 04:00 99.0 97 19 117/54 (75) 96 08/13/18 00:00 98.5 91 19 124/50 (74) 95 08/12/18 21:00 Room Air 08/12/18 20:55 99.8 08/12/18 20:21 99 100/55 08/12/18 20:00 100.0 99 19 100/55 (70) 97 08/12/18 16:00 98.1 90 18 102/57 (72) 97 08/12/18 12:00 98.1 91 20 108/56 (73) 95 08/12/18 10:30 70 14 98 08/12/18 09:00 Room Air 08/12/18 08:39 118/62 08/12/18 08:38 113 118/62 Intake and Output 08/12/18 08/13/18 19:00 07:00 Intake Total 295 ml 435 ml Output Total 100 ml Balance 295 ml 335 ml IV Total 295 ml 435 ml Output Urine Total 100 ml # Voids 2 Objective General Appearance: no acute distress, awake, responsive, confused HEENT: normocephalic, atraumatic, anicteric, mucous membranes moist Respiratory/Chest: lungs clear, no respiratory distress Cardiovascular: normal rate Abdomen: normal bowel sounds, soft, non tender Extremities: no edema, pedal pulses normal Skin: L hip dressing C/D/I Neurologic/Psychiatric: abnormal gait - bedridden , alert, responsive , confused Musculoskeletal: atrophy - BLE Laboratory Tests 08/13/18 05:40: White Blood Count 9.3, Red Blood Count 3.48L, Hemoglobin 9.7L, Hematocrit 28.8L , Mean Corpuscular Volume 83, Mean Corpuscular Hemoglobin 27.9, Mean Corpuscular Hemoglobin Concent 33.7, Red Cell Distribution Width 13.4, Platelet Count 368, Mean Platelet Volume 6.6, Neutrophils (%) (Auto) 77.0H, Lymphocytes ( %) (Auto) 10.3L, Monocytes (%) (Auto) 9.6, Eosinophils (%) (Auto) 2.3, Basophils (%) (Auto) 0.8, Sodium Level 140, Potassium Level 3.5, Chloride Level 106, Carbon Dioxide Level 25, Anion Gap 9, Blood Urea Nitrogen 14, Creatinine 1.3, Estimat Glomerular Filtration Rate , Glucose Level 144H, Calcium Level 8.5 Current Medications Medications (Trade) Dose Ordered Sig/Nicole Route PRN Reason Start Time Stop Time Status Last Admin Dose Admin Acetaminophen (Tylenol) 650 mg Q4H PRN ORAL Mild Pain (Pain Scale 1-3) 08/11/18 07:15 09/10/18 07:14 08/12/18 15:44 Acetaminophen (Tylenol) 650 mg Q4H PRN ORAL temp>100 08/11/18 07:15 09/10/18 07:14 08/12/18 20:25 Acetaminophen/ Hydrocodone Bitart ([place] 7.5/325) 1 tab Q4H PRN ORAL Moderate Pain (Pain Scale 4-6) 08/11/18 07:15 08/18/18 07:14 Atorvastatin Calcium (Lipitor) 10 mg BEDTIME ORAL 08/10/18 21:00 09/09/18 20:59 08/12/18 20:21 Cefazolin Sodium 1 gm/Dextrose 55 ml @ 110 mls/hr Q8HR IVPB 08/11/18 14:00 08/18/18 13:59 08/13/18 05:26 Dextrose/Sodium Chloride 1,000 ml @ 50 mls/hr Q20H IV 08/12/18 18:00 09/11/18 17:59 08/12/18 18:22 Docusate Sodium (Colace) 100 mg THREE TIMES A DAY ORAL 08/09/18 18:00 09/08/18 17:59 08/12/18 17:38 Enoxaparin Sodium (Lovenox) 30 mg DAILY SUBQ 08/11/18 10:00 08/21/18 09:59 08/12/18 08:39 Lansoprazole (Prevacid) 30 mg Q12HR ORAL 08/13/18 09:00 09/12/18 08:59 Lisinopril (Zestril) 10 mg DAILY ORAL 08/12/18 09:00 09/11/18 08:59 08/12/18 08:39 Lorazepam (Ativan) 0.5 mg Q6H PRN ORAL For Anxiety 08/12/18 14:30 08/19/18 14:29 Magnesium Hydroxide (Mom) 30 ml DAILYPRN PRN ORAL Constipation 08/11/18 07:15 09/10/18 07:14 Memantine (Namenda) 10 mg BID ORAL 08/12/18 18:00 09/11/18 17:59 08/12/18 17:38 Metoprolol Tartrate (Lopressor) 25 mg Q12HR ORAL 08/12/18 09:00 09/09/18 20:59 08/12/18 08:38 Polyethylene Glycol (Miralax) 17 gm DAILYPRN PRN ORAL Constipation 08/09/18 14:00 09/08/18 13:59 Tamsulosin HCl (Flomax) 0.4 mg BEDTIME ORAL 08/09/18 21:00 09/08/18 20:59 08/12/18 20:21 Temazepam (Restoril) 15 mg HSPRN PRN ORAL Insomnia 08/09/18 17:00 08/16/18 16:59 Aster Christensen NP August 13, 2018 08:01
[2018-08-13] MEDS: Memantine 10mg tab ORAL SCH ×2 (08:20→17:01)
[2018-08-13] MEDS: Docusate 100mg cap ORAL SCH ×3 (08:20→17:01)
[2018-08-13] MEDS: Metoprolol 25mg tab ORAL SCH ×3 (08:20→20:56)
[2018-08-13] MEDS: Lisinopril 10mg tab ORAL SCH (08:20)
[2018-08-13] MEDS: Enoxaparin 30mg Inj SUBQ SCH (08:24)
--- NOTE | 2018-08-13 08:32 | General Progress Note ---
Assessment/Plan Problem List: (1) UTI (urinary tract infection) ICD Codes: N39.0 - Urinary tract infection, site not specified SNOMED: 69678830 (2) Decubitus ulcer, heel, left, unstageable ICD Codes: L89.620 - Pressure ulcer of left heel, unstageable SNOMED: 645536880 (3) Phimosis ICD Codes: N47.1 - Phimosis SNOMED: 586662810 (4) Fever ICD Codes: R50.9 - Fever, unspecified SNOMED: 846275745 Qualifiers: Qualified Codes: R50.9 - Fever, unspecified (5) Closed left hip fracture ICD Codes: S72.002A - Fracture of unspecified part of neck of left femur, initial encounter for closed fracture SNOMED: 740159953 Qualifiers: Qualified Codes: S72.002A - Fracture of unspecified part of neck of left femur, initial encounter for closed fracture (6) COPD (chronic obstructive pulmonary disease) ICD Codes: J44.9 - Chronic obstructive pulmonary disease, unspecified SNOMED: 92581141 Status: stable, progressing Assessment/Plan: pt diet abx cbc bmp am aru eval Subjective Constitutional: Reports: weakness Allergies: Coded Allergies: No Known Allergies (Unverified , 07/19/17) All Systems: reviewed and negative except above Subjective sl hip pain s/p sx Objective Last 24 Hour Vital Signs Date Time Temp Pulse Resp B/P (MAP) Pulse Ox O2 Delivery O2 Flow Rate FiO2 08/13/18 08:20 97 117/54 08/13/18 08:20 117/54 08/13/18 04:00 99.0 97 19 117/54 (75) 96 08/13/18 00:00 98.5 91 19 124/50 (74) 95 08/12/18 21:00 Room Air 08/12/18 20:55 99.8 08/12/18 20:21 99 100/55 08/12/18 20:00 100.0 99 19 100/55 (70) 97 08/12/18 16:00 98.1 90 18 102/57 (72) 97 08/12/18 12:00 98.1 91 20 108/56 (73) 95 08/12/18 10:30 70 14 98 08/12/18 09:00 Room Air 08/12/18 08:39 118/62 08/12/18 08:38 113 118/62 Intake and Output 08/12/18 08/13/18 19:00 07:00 Intake Total 295 ml 435 ml Output Total 100 ml Balance 295 ml 335 ml IV Total 295 ml 435 ml Output Urine Total 100 ml # Voids 2 Laboratory Tests 08/13/18 05:40: White Blood Count 9.3, Red Blood Count 3.48L, Hemoglobin 9.7L, Hematocrit 28.8L , Mean Corpuscular Volume 83, Mean Corpuscular Hemoglobin 27.9, Mean Corpuscular Hemoglobin Concent 33.7, Red Cell Distribution Width 13.4, Platelet Count 368, Mean Platelet Volume 6.6, Neutrophils (%) (Auto) 77.0H, Lymphocytes ( %) (Auto) 10.3L, Monocytes (%) (Auto) 9.6, Eosinophils (%) (Auto) 2.3, Basophils (%) (Auto) 0.8, Sodium Level 140, Potassium Level 3.5, Chloride Level 106, Carbon Dioxide Level 25, Anion Gap 9, Blood Urea Nitrogen 14, Creatinine 1.3, Estimat Glomerular Filtration Rate , Glucose Level 144H, Calcium Level 8.5 Height (Feet): 5 Height (Inches): 8.00 Weight (Pounds): 120 General Appearance: lethargic EENT: normal ENT inspection Neck: normal alignment Cardiovascular: normal peripheral pulses, normal rate, regular rhythm Respiratory/Chest: chest wall non-tender, lungs clear, normal breath sounds Abdomen: normal bowel sounds, non tender, soft Extremities: normal inspection Edema: no edema noted Arm (L), no edema noted Arm (R), no edema noted Leg (L), no edema noted Leg (R), no edema noted Pedal (L), no edema noted Pedal (R), no edema noted Generalized Neurologic: motor weakness Skin: normal pigmentation, warm/dry Samir Cramer DO August 13, 2018 08:32
[2018-08-13] MEDS ORDERED: Albuterol/Ipratropium 3ml neb HHN PRN (11:45)
[2018-08-13 12:00] VITALS: BP 112/55
--- NOTE | 2018-08-13 13:36 | Surgery Progress Note ---
Surgery Progress Note Subjective Additional Comments no acute events. stable. comfortable. Objective Last 24 Hour Vital Signs Date Time Temp Pulse Resp B/P (MAP) Pulse Ox O2 Delivery O2 Flow Rate FiO2 08/13/18 12:00 99.2 92 20 112/55 (74) 99 08/13/18 09:00 Room Air 08/13/18 08:20 97 117/54 08/13/18 08:20 117/54 08/13/18 08:00 99.8 98 20 125/62 (83) 95 08/13/18 04:00 99.0 97 19 117/54 (75) 96 08/13/18 00:00 98.5 91 19 124/50 (74) 95 08/12/18 21:00 Room Air 08/12/18 20:55 99.8 08/12/18 20:21 99 100/55 08/12/18 20:00 100.0 99 19 100/55 (70) 97 08/12/18 16:00 98.1 90 18 102/57 (72) 97 I&O Intake and Output 08/12/18 08/13/18 19:00 07:00 Intake Total 295 ml 435 ml Output Total 100 ml Balance 295 ml 335 ml IV Total 295 ml 435 ml Output Urine Total 100 ml # Voids 2 Dressing: dry Wound: clean Drains: other Cardiovascular: RSR Respiratory: clear Abdomen: soft, non-tender, present bowel sounds Extremities: no cyanosis Laboratory Tests Test 08/13/18 05:40 White Blood Count 9.3 K/UL (4.8-10.8) Red Blood Count 3.48 M/UL (4.70-6.10) L Hemoglobin 9.7 G/DL (14.2-18.0) L Hematocrit 28.8 % (42.0-52.0) L Mean Corpuscular Volume 83 FL (80-99) Mean Corpuscular Hemoglobin 27.9 PG (27.0-31.0) Mean Corpuscular Hemoglobin Concent 33.7 G/DL (32.0-36.0) Red Cell Distribution Width 13.4 % (11.6-14.8) Platelet Count 368 K/UL (150-450) Mean Platelet Volume 6.6 FL (6.5-10.1) Neutrophils (%) (Auto) 77.0 % (45.0-75.0) H Lymphocytes (%) (Auto) 10.3 % (20.0-45.0) L Monocytes (%) (Auto) 9.6 % (1.0-10.0) Eosinophils (%) (Auto) 2.3 % (0.0-3.0) Basophils (%) (Auto) 0.8 % (0.0-2.0) Sodium Level 140 MMOL/L (136-145) Potassium Level 3.5 MMOL/L (3.5-5.1) Chloride Level 106 MMOL/L (98-107) Carbon Dioxide Level 25 MMOL/L (21-32) Anion Gap 9 mmol/L (5-15) Blood Urea Nitrogen 14 mg/dL (7-18) Creatinine 1.3 MG/DL (0.55-1.30) Estimat Glomerular Filtration Rate mL/min (>60) Glucose Level 144 MG/DL (74-106) H Calcium Level 8.5 MG/DL (8.5-10.1) Plan Problems: (1) Anemia (2) MDRO (multiple drug resistant organisms) resistance (3) ATN (acute tubular necrosis) (4) Decubitus ulcer, heel, left, unstageable (5) Sepsis (6) UTI (urinary tract infection) (7) COPD (chronic obstructive pulmonary disease) (8) Balanoposthitis (9) Severe protein-calorie malnutrition (10) BPH (benign prostatic hyperplasia) (11) Phimosis (12) Fever (13) Decubitus ulcer Assessment & Plan: Patient presents with multiple wounds on admission. Right heel with DTI Sacral redness with seemingly healing prior wound/DTI left hip wound healing Tx Plan: Apply foam dressings to bilateral heels q3 days heel protectors off load pressure with pillow turn q2h air soft mattress encourage patient to mobilize when possible (14) Closed left hip fracture Assessment & Plan: s/p left hip orif by ortho Bentley Reyes August 13, 2018 13:36
[2018-08-13 16:00] VITALS: BP 90/45
--- NOTE | 2018-08-13 17:09 | Nephrology Progress Note ---
Assessment/Plan Problem List: (1) ATN (acute tubular necrosis) (2) UTI (urinary tract infection) (3) Severe protein-calorie malnutrition (4) BPH (benign prostatic hyperplasia) (5) Phimosis (6) Closed left hip fracture Assessment: surgery 08/11 (7) Cardiomyopathy Assessment Acute on chronic renal failure- Cardiomyopathy UTI , Fever Closed left hip fracture Phimosis Plan Dc IV Anemia agrawal- Protonix monitor renal parameters per orders per ortho Global left ventricular hypokinesis. Distal septal and apical akinesis to extent visualized. Left ventricular ejection fraction estimated to be 30-35 %. Subjective ROS Limited/Unobtainable: No Objective Objective Last 24 Hour Vital Signs Date Time Temp Pulse Resp B/P (MAP) Pulse Ox O2 Delivery O2 Flow Rate FiO2 08/13/18 16:00 98.7 86 24 90/45 (60) 100 08/13/18 12:00 99.2 92 20 112/55 (74) 99 08/13/18 09:00 Room Air 08/13/18 08:20 97 117/54 08/13/18 08:20 117/54 08/13/18 08:00 99.8 98 20 125/62 (83) 95 08/13/18 04:00 99.0 97 19 117/54 (75) 96 08/13/18 00:00 98.5 91 19 124/50 (74) 95 08/12/18 21:00 Room Air 08/12/18 20:55 99.8 08/12/18 20:21 99 100/55 08/12/18 20:00 100.0 99 19 100/55 (70) 97 Intake and Output 08/12/18 08/13/18 19:00 07:00 Intake Total 295 ml 435 ml Output Total 100 ml Balance 295 ml 335 ml IV Total 295 ml 435 ml Output Urine Total 100 ml # Voids 2 Laboratory Tests 08/13/18 05:40: White Blood Count 9.3, Red Blood Count 3.48L, Hemoglobin 9.7L, Hematocrit 28.8L , Mean Corpuscular Volume 83, Mean Corpuscular Hemoglobin 27.9, Mean Corpuscular Hemoglobin Concent 33.7, Red Cell Distribution Width 13.4, Platelet Count 368, Mean Platelet Volume 6.6, Neutrophils (%) (Auto) 77.0H, Lymphocytes ( %) (Auto) 10.3L, Monocytes (%) (Auto) 9.6, Eosinophils (%) (Auto) 2.3, Basophils (%) (Auto) 0.8, Sodium Level 140, Potassium Level 3.5, Chloride Level 106, Carbon Dioxide Level 25, Anion Gap 9, Blood Urea Nitrogen 14, Creatinine 1.3, Estimat Glomerular Filtration Rate , Glucose Level 144H, Calcium Level 8.5 Height (Feet): 5 Height (Inches): 8.00 Weight (Pounds): 120 General Appearance: no apparent distress Cardiovascular: normal rate Respiratory/Chest: lungs clear Abdomen: soft Objective no change Jose Guadalupe Santiago MD August 13, 2018 17:09
--- NOTE | 2018-08-13 17:43 | Cardiac Electrophysiology PN ---
Assessment/Plan Assessment/Plan 1. Cardiomyopathy with ejection fraction of 30% to 35% on echocardiogram. Denies any prior myocardial infarction or congestive heart failure. On Lopressor 12.5 bid and Lisinopril 5 daily Hold off on Lasix as the patient clinically is euvolemic. 2. Renal failure. Creatinine of 1.5. 3. Hip fracture.S/P ORIF Subjective Subjective Alert in NAD. No CP or SOB Objective Last 24 Hour Vital Signs Date Time Temp Pulse Resp B/P (MAP) Pulse Ox O2 Delivery O2 Flow Rate FiO2 08/13/18 16:00 98.7 86 24 90/45 (60) 100 08/13/18 12:00 99.2 92 20 112/55 (74) 99 08/13/18 09:00 Room Air 08/13/18 08:20 97 117/54 08/13/18 08:20 117/54 08/13/18 08:00 99.8 98 20 125/62 (83) 95 08/13/18 04:00 99.0 97 19 117/54 (75) 96 08/13/18 00:00 98.5 91 19 124/50 (74) 95 08/12/18 21:00 Room Air 08/12/18 20:55 99.8 08/12/18 20:21 99 100/55 08/12/18 20:00 100.0 99 19 100/55 (70) 97 Intake and Output 08/12/18 08/13/18 19:00 07:00 Intake Total 295 ml 435 ml Output Total 100 ml Balance 295 ml 335 ml IV Total 295 ml 435 ml Output Urine Total 100 ml # Voids 2 Laboratory Tests Test 08/13/18 05:40 White Blood Count 9.3 K/UL (4.8-10.8) Red Blood Count 3.48 M/UL (4.70-6.10) L Hemoglobin 9.7 G/DL (14.2-18.0) L Hematocrit 28.8 % (42.0-52.0) L Mean Corpuscular Volume 83 FL (80-99) Mean Corpuscular Hemoglobin 27.9 PG (27.0-31.0) Mean Corpuscular Hemoglobin Concent 33.7 G/DL (32.0-36.0) Red Cell Distribution Width 13.4 % (11.6-14.8) Platelet Count 368 K/UL (150-450) Mean Platelet Volume 6.6 FL (6.5-10.1) Neutrophils (%) (Auto) 77.0 % (45.0-75.0) H Lymphocytes (%) (Auto) 10.3 % (20.0-45.0) L Monocytes (%) (Auto) 9.6 % (1.0-10.0) Eosinophils (%) (Auto) 2.3 % (0.0-3.0) Basophils (%) (Auto) 0.8 % (0.0-2.0) Sodium Level 140 MMOL/L (136-145) Potassium Level 3.5 MMOL/L (3.5-5.1) Chloride Level 106 MMOL/L (98-107) Carbon Dioxide Level 25 MMOL/L (21-32) Anion Gap 9 mmol/L (5-15) Blood Urea Nitrogen 14 mg/dL (7-18) Creatinine 1.3 MG/DL (0.55-1.30) Estimat Glomerular Filtration Rate mL/min (>60) Glucose Level 144 MG/DL (74-106) H Calcium Level 8.5 MG/DL (8.5-10.1) Objective HEAD AND NECK: No jugular venous distention. LUNGS: Clear. CARDIOVASCULAR: Regular S1 and S2 with no gallop or murmur. ABDOMEN: Soft. EXTREMITIES: Status post left hip ORIF Charly Krueger MD August 13, 2018 17:43
--- NOTE | 2018-08-13 19:00 | Progress Note ---
DATE: 08/13/2018 SUBJECTIVE: The patient is a 78-year-old male patient with fracture of his left hip, but he has altered mental status and confusion worsened by stress of his medical illness that is why the attending has requested daily psychiatric consultation. MENTAL STATUS EXAMINATION: This is a 78-year-old male. Appearance is disheveled. Attitude, irritable and agitated. Affect, guarded and restricted. Intellect poor. Mood depressed and anxious. Motor activity, psychomotor agitation. Attention span is poor. Orientation x2. Speech is low volume, slurred. Thought process, disorganized and illogical. Insight and judgment is poor. DIAGNOSIS: Major depressive disorder, mild, recurrent with psychotic features. PLAN: Treat this patient with a medication regimen consisting of Namenda 10 mg twice a day, Ativan 0.5 mg every 6 hours p.r.n. anxiety and agitation. Provide him with 20 minutes of reality based supportive psychotherapy and 20 minutes of cognitive behavioral therapy to help him identify his automatic negative thoughts and help him convert those negative thoughts to more positive thoughts to reduce depression, anxiety, and mood lability. A 20 minutes of cognitive therapy provided to also help . Chart reviewed. Discussed with staff. Seen and assessed in the room. Lea Dodd M.D. DR: Gege JOB#: [id number] CC:
--- NOTE | 2018-08-13 19:14 | NUR ---
HAND-OFF: Report given to Jacinto SANTIAGO.
--- NOTE | 2018-08-13 19:52 | NUR ---
NURSE NOTES: Received patient in bed, awake, able to verbalize needs. Patient denies any pain or discomfort at this time. Surgical dressing intact. IV intact, no s/s of infiltration, on saline lock. Bed is in lowest position and locked. Call light and belongings within reach, bed alarm on.
[2018-08-13 20:00] VITALS: BP 94/44
[2018-08-13] MEDS: Tamsulosin 0.4mg cap ORAL SCH (20:47)
[2018-08-14] VITALS (7 sets, daily range): BP systolic 103–141; BP diastolic 52–81
[2018-08-14] MEDS: ceFAZolin sod 1 GM in D5W 55 ML IVPB SCH ×3 (06:05→21:46)
[2018-08-14 06:54] LABS: ANION GAP 8 mmol/L (5-15); BLOOD UREA NITROGEN 15 mg/dL (7-18); CALCIUM 8.2 MG/DL (8.5-10.1); CARBON DIOXIDE 25 MMOL/L (21-32); CHLORIDE 105 MMOL/L (98-107); CREATININE 1.2 MG/DL (0.55-1.30); POTASSIUM 3.3 MMOL/L (3.5-5.1); SODIUM 138 MMOL/L (136-145)
--- NOTE | 2018-08-14 06:59 | NUR ---
HAND-OFF: Report given to PAMELA Chatman.
[2018-08-14 07:13] LABS: BASOPHILS % (AUTO) 1.1 % (0.0-2.0); EOSINOPHILS % (AUTO) 3.9 % (0.0-3.0); HEMATOCRIT 27.1 % (42.0-52.0); LYMPHOCYTES % (AUTO) 11.3 % (20.0-45.0); MEAN CORPUSCULAR VOLUME 84 FL (80-99); MONOCYTES % (AUTO) 7.7 % (1.0-10.0); NEUTROPHILS % (AUTO) 76.1 % (45.0-75.0); PLATELET COUNT 387 K/UL (150-450); RED BLOOD COUNT 3.25 M/UL (4.70-6.10); RED CELL DISTRIBUTION WIDTH 13.4 % (11.6-14.8); WHITE BLOOD COUNT 9.6 K/UL (4.8-10.8)
--- NOTE | 2018-08-14 07:45 | NUR ---
NURSE NOTES: Patient received awake, resting in bed, eating breakfast independently. Alert and oriented, responds appropriately. Condom catheter in place. Denies respiratory distress or pain at this time. Use of incentive spirometer encouraged. Bed locked in lowest position, hob elevated for aspiration precautions. Bed alarm is on. Call light placed within reach, will continue to monitor.
[2018-08-14] MEDS: Memantine 10mg tab ORAL SCH ×2 (08:07→17:00)
[2018-08-14] MEDS: Docusate 100mg cap ORAL SCH ×3 (08:07→17:00)
[2018-08-14] MEDS: Metoprolol 25mg tab ORAL SCH ×2 (08:08→21:41)
[2018-08-14] MEDS: Enoxaparin 30mg Inj SUBQ SCH (08:13)
[2018-08-14] MEDS: Lisinopril 10mg tab ORAL SCH (08:14)
--- NOTE | 2018-08-14 08:15 | Consultation ---
DATE OF CONSULTATION: 08/12/2018 HISTORY OF PRESENT ILLNESS: The patient is a 78-year-old male patient with fracture of the left hip. That is why he came into the hospital. The patient has some confusion and altered mental status as well. He came in from [facility], he is diagnosed with fever. He also is status post fracture. He is agitated and irritable. He is refusing to answer questions. He has some mood lability. PAST MEDICAL HISTORY: History of decubitus ulcers, chronic obstructive pulmonary disease, BPH, , and altered mental status. ALLERGIES: No known drug allergies. MEDICATIONS: Psychiatric medications on admission, the patient denies any psychotropic medications on admission, but he has been on some medications in the past such as Namenda 5 mg twice a day. PAST MEDICAL HISTORY: The patient does have a medical history consisting of cardiomyopathy, anemia, acute tubular necrosis, decubitus ulcers, and severe protein-calorie malnutrition, phimosis, fever, decubitus ulcers. ALLERGIES: He has no known drug allergies. PSYCHIATRIC MEDICATIONS: On admission, Namenda 5 mg twice a day. SUBSTANCE ABUSE HISTORY: Denies drug and alcohol use. FAMILY PSYCHIATRIC HISTORY: Denies. SOCIAL HISTORY: Lives at rehab of [facility]. Financially supported by [employer] and Medicare. PSYCHIATRIC HISTORY: History of major depression with psychotic features, rule out dementia with psychosis. No known previous psychiatric admissions. STRENGTHS: He is motivated to get better and he has a place to live. WEAKNESSES: He is impulsive and minimal support system. MENTAL STATUS EXAMINATION: A 78-year-old male. Appearance is disheveled. Attitude, irritable and agitated. Affect, guarded and restricted. Intellect poor. He has no guarding . No logical plan. His mood is depressed and anxious. Motor activity, psychomotor agitation. Attention span is poor. orientation x2. Oriented to person, place, time, and situation. Speech is low volume, but slurred. Thought process is disorganized and logical. Thought content, auditory hallucinations and paranoia. Perception is poor with auditory hallucinations and paranoid delusions. Abstract reasoning is poor. He does not understand problems. positive thinking. Insight is poor. condition. Judgment is poor because he cannot make her medical decision for himself. Denies suicidal or homicidal ideation. Short-term memory is 0/3 recall poor short-term memory loss. . He does not recall long-term events such as the high school he went to. DIAGNOSIS: Major depressive disorder, mild, recurrent with psychotic features, rule out dementia with psychosis. Medical diagnosis is anemia, acute tubular necrosis, fracture of his left hip, cardiomyopathy, chronic obstructive pulmonary disease. Psychosocial stressors, financial. is moderate. PLAN: My plan for this patient is Namenda 10 mg twice a day as he appears to be confused and disorganized. Also Ativan 0.5 mg twice a day. Provided him with 20 minutes of cognitive behavioral therapy to help him identify his automatic negative thoughts and help him convert those negative thoughts to more positive thoughts to reduce depression, anxiety, and mood lability. A 20 minutes of cognitive therapy provided to also help him have more adaptive behavior patterns. I would like to thank Dr. Samir Cramer for this interesting consultation. Lea Dodd M.D. DR: CLARENCE JOB#: [id number] CC:
--- NOTE | 2018-08-14 09:26 | NUR ---
INFORMATION TECHNOLOGY ASSISTANTALIGNING CHECKER SI:CLOSED LEFT HIP FRACTURE S/P LEFT HIP ORIF 08/11 VS: BP 103/55, P 89, T 97.9, RR 20, SpO2 97 RBC 3.25, H&H 9.0/27.1, K 3.3 IS:ZESTRIL 10mg LOVENOX 30mg NAMENDA 10mg ZOSYN 285ml IV LOPRESSOR 25mg FLOMAX 0.4mg LIPITOR 10mg MED/SURG STATUS
[2018-08-14 10:06] LABS: ALANINE AMINOTRANSFERASE 21 U/L (12-78); ALBUMIN 1.8 G/DL (3.4-5.0); ALKALINE PHOSPHATASE 59 U/L (46-116); ASPARTATE AMINO TRANSFERASE 32 U/L (15-37); BILIRUBIN,DIRECT < 0.1 MG/DL (0.0-0.3); BILIRUBIN,TOTAL 0.3 MG/DL (0.2-1.0); PHOSPHORUS 2.1 MG/DL (2.5-4.9)
--- NOTE | 2018-08-14 11:58 | NUR ---
RD ASSESSMENT & RECOMMENDATIONS SEE CARE ACTIVITY FOR COMPLETE ASSESSMENT DAILY ESTIMATED NEEDS: Needs based on Surgery pending, underweight/ 54.5 kg 30-35 kcals/kg 0479-9648 total kcals 1-2 g protein/kg 55-109 g total protein 25-30 mL/kg 0859-8072 total fluid mLs NUTRITION DIAGNOSIS: * Increased Kcal and protein needs r/t wound healing, underweight status as evidenced by pt w/ DTI wound @ right heel and sacral redness, now s/p L hip orif, with low BMI per guidelines, currently 78% of [place] Body Weight. * Altered nutrition related lab values R/T diabetes as evidenced by A1C of 6.8 CURRENT DIET:Full Liquid w/ HTL PO DIET RECOMMENDATIONS: CCHO Med/ Texture per COMPUTER SYSTEMS ADMINISTRATOR ADDITIONAL RECOMMENDATIONS: 1) Obtain calibrated bedscale wt for accurate CBW 2) Monitor PO intake closely 3) Glucerna 1 tetra lashell BID in b/w meals 4) Monitor lytes, replete as needed 5) Wound healing: add MVI x 1, Vit C 500mg QD, Jl 1pkt BID . .
--- NOTE | 2018-08-14 12:20 | Cardiac Electrophysiology PN ---
Assessment/Plan Assessment/Plan 1. Cardiomyopathy with ejection fraction of 30% to 35% on echocardiogram. Denies any prior myocardial infarction or congestive heart failure. On Lopressor 12.5 bid and Lisinopril 5 daily Off Lasix as the patient clinically is euvolemic. 2. Renal failure. Creatinine of 1.5. 3. Hip fracture.S/P ORIF. Going to [facility] ARU HANK RN Subjective Subjective Alert in NAD. No CP or SOB. Awaiting transfer to [facility] for ARU Objective Last 24 Hour Vital Signs Date Time Temp Pulse Resp B/P (MAP) Pulse Ox O2 Delivery O2 Flow Rate FiO2 08/14/18 09:00 Room Air 08/14/18 08:14 103/55 08/14/18 08:08 82 103/55 08/14/18 08:00 97.8 93 19 141/80 (100) 95 08/14/18 04:00 98.7 82 20 103/55 (71) 94 08/14/18 00:00 98.5 86 20 105/52 (69) 100 08/13/18 21:00 Room Air 08/13/18 20:56 86 94/44 08/13/18 20:00 98.3 90 24 94/44 (61) 100 08/13/18 16:00 98.7 86 24 90/45 (60) 100 Intake and Output 08/13/18 08/14/18 19:00 07:00 Intake Total 480 ml Output Total 250 ml Balance 480 ml -250 ml Intake Oral 480 ml Output Urine Total 250 ml # Voids 2 Laboratory Tests Test 08/14/18 06:15 White Blood Count 9.6 K/UL (4.8-10.8) Red Blood Count 3.25 M/UL (4.70-6.10) L Hemoglobin 9.0 G/DL (14.2-18.0) L Hematocrit 27.1 % (42.0-52.0) L Mean Corpuscular Volume 84 FL (80-99) Mean Corpuscular Hemoglobin 27.8 PG (27.0-31.0) Mean Corpuscular Hemoglobin Concent 33.3 G/DL (32.0-36.0) Red Cell Distribution Width 13.4 % (11.6-14.8) Platelet Count 387 K/UL (150-450) Mean Platelet Volume 6.2 FL (6.5-10.1) L Neutrophils (%) (Auto) 76.1 % (45.0-75.0) H Lymphocytes (%) (Auto) 11.3 % (20.0-45.0) L Monocytes (%) (Auto) 7.7 % (1.0-10.0) Eosinophils (%) (Auto) 3.9 % (0.0-3.0) H Basophils (%) (Auto) 1.1 % (0.0-2.0) Sodium Level 138 MMOL/L (136-145) Potassium Level 3.3 MMOL/L (3.5-5.1) L Chloride Level 105 MMOL/L (98-107) Carbon Dioxide Level 25 MMOL/L (21-32) Anion Gap 8 mmol/L (5-15) Blood Urea Nitrogen 15 mg/dL (7-18) Creatinine 1.2 MG/DL (0.55-1.30) Estimat Glomerular Filtration Rate mL/min (>60) Glucose Level 123 MG/DL (74-106) H Calcium Level 8.2 MG/DL (8.5-10.1) L Phosphorus Level 2.1 MG/DL (2.5-4.9) L Magnesium Level 1.8 MG/DL (1.8-2.4) Total Bilirubin 0.3 MG/DL (0.2-1.0) Direct Bilirubin < 0.1 MG/DL (0.0-0.3) Aspartate Amino Transf (AST/SGOT) 32 U/L (15-37) Alanine Aminotransferase (ALT/SGPT) 21 U/L (12-78) Alkaline Phosphatase 59 U/L (46-116) Total Protein 6.3 G/DL (6.4-8.2) L Albumin 1.8 G/DL (3.4-5.0) L Objective HEAD AND NECK: No jugular venous distention. LUNGS: Clear. CARDIOVASCULAR: Regular S1 and S2 with no gallop or murmur. ABDOMEN: Soft. EXTREMITIES: Status post left hip ORIF Charly Krueger MD August 14, 2018 12:20
--- NOTE | 2018-08-14 12:53 | Surgery Progress Note ---
Surgery Progress Note Subjective Additional Comments no acute events. comfortable. stable. pain improved wound c/d/i no complaints pending sub acute transfer Objective Last 24 Hour Vital Signs Date Time Temp Pulse Resp B/P (MAP) Pulse Ox O2 Delivery O2 Flow Rate FiO2 08/14/18 12:00 98.1 89 18 133/78 (96) 96 08/14/18 09:00 Room Air 08/14/18 08:14 103/55 08/14/18 08:08 82 103/55 08/14/18 08:00 97.8 93 19 141/80 (100) 95 08/14/18 04:00 98.7 82 20 103/55 (71) 94 08/14/18 00:00 98.5 86 20 105/52 (69) 100 08/13/18 21:00 Room Air 08/13/18 20:56 86 94/44 08/13/18 20:00 98.3 90 24 94/44 (61) 100 08/13/18 16:00 98.7 86 24 90/45 (60) 100 I&O Intake and Output 08/13/18 08/14/18 19:00 07:00 Intake Total 480 ml Output Total 250 ml Balance 480 ml -250 ml Intake Oral 480 ml Output Urine Total 250 ml # Voids 2 Dressing: dry Wound: clean Cardiovascular: RSR Respiratory: clear Abdomen: soft, flat, non-tender, present bowel sounds Extremities: no tenderness, no cyanosis Laboratory Tests Test 08/14/18 06:15 White Blood Count 9.6 K/UL (4.8-10.8) Red Blood Count 3.25 M/UL (4.70-6.10) L Hemoglobin 9.0 G/DL (14.2-18.0) L Hematocrit 27.1 % (42.0-52.0) L Mean Corpuscular Volume 84 FL (80-99) Mean Corpuscular Hemoglobin 27.8 PG (27.0-31.0) Mean Corpuscular Hemoglobin Concent 33.3 G/DL (32.0-36.0) Red Cell Distribution Width 13.4 % (11.6-14.8) Platelet Count 387 K/UL (150-450) Mean Platelet Volume 6.2 FL (6.5-10.1) L Neutrophils (%) (Auto) 76.1 % (45.0-75.0) H Lymphocytes (%) (Auto) 11.3 % (20.0-45.0) L Monocytes (%) (Auto) 7.7 % (1.0-10.0) Eosinophils (%) (Auto) 3.9 % (0.0-3.0) H Basophils (%) (Auto) 1.1 % (0.0-2.0) Sodium Level 138 MMOL/L (136-145) Potassium Level 3.3 MMOL/L (3.5-5.1) L Chloride Level 105 MMOL/L (98-107) Carbon Dioxide Level 25 MMOL/L (21-32) Anion Gap 8 mmol/L (5-15) Blood Urea Nitrogen 15 mg/dL (7-18) Creatinine 1.2 MG/DL (0.55-1.30) Estimat Glomerular Filtration Rate mL/min (>60) Glucose Level 123 MG/DL (74-106) H Calcium Level 8.2 MG/DL (8.5-10.1) L Phosphorus Level 2.1 MG/DL (2.5-4.9) L Magnesium Level 1.8 MG/DL (1.8-2.4) Total Bilirubin 0.3 MG/DL (0.2-1.0) Direct Bilirubin < 0.1 MG/DL (0.0-0.3) Aspartate Amino Transf (AST/SGOT) 32 U/L (15-37) Alanine Aminotransferase (ALT/SGPT) 21 U/L (12-78) Alkaline Phosphatase 59 U/L (46-116) Total Protein 6.3 G/DL (6.4-8.2) L Albumin 1.8 G/DL (3.4-5.0) L Plan Problems: (1) Anemia (2) MDRO (multiple drug resistant organisms) resistance (3) ATN (acute tubular necrosis) (4) Decubitus ulcer, heel, left, unstageable (5) Sepsis (6) UTI (urinary tract infection) (7) COPD (chronic obstructive pulmonary disease) (8) Balanoposthitis (9) Severe protein-calorie malnutrition (10) BPH (benign prostatic hyperplasia) (11) Phimosis (12) Fever (13) Decubitus ulcer Assessment & Plan: Patient presents with multiple wounds on admission. Right heel with DTI Sacral redness with seemingly healing prior wound/DTI left hip wound healing Tx Plan: Apply foam dressings to bilateral heels q3 days heel protectors off load pressure with pillow turn q2h air soft mattress encourage patient to mobilize when possible (14) Closed left hip fracture Assessment & Plan: s/p left hip orif by ortho recovering Bentley Enrique August 14, 2018 12:53
--- NOTE | 2018-08-14 13:30 | Pulmonology Progress Note ---
Assessment/Plan Problems: (1) Closed left hip fracture (2) COPD (chronic obstructive pulmonary disease) (3) BPH (benign prostatic hyperplasia) (4) Severe protein-calorie malnutrition (5) Decubitus ulcer Assessment/Plan no new complains all reviewed tolerated surgery pain management titrate fio2 to sat of 92% dvt prophylaxis wound care dc planning Subjective ROS Limited/Unobtainable: No Constitutional: Reports: no symptoms HEENT: Repors: no symptoms Respiratory: Reports: no symptoms Allergies: Coded Allergies: No Known Allergies (Unverified , 07/19/17) Objective Last 24 Hour Vital Signs Date Time Temp Pulse Resp B/P (MAP) Pulse Ox O2 Delivery O2 Flow Rate FiO2 08/14/18 12:00 98.1 89 18 133/78 (96) 96 08/14/18 09:00 Room Air 08/14/18 08:14 103/55 08/14/18 08:08 82 103/55 08/14/18 08:00 97.8 93 19 141/80 (100) 95 08/14/18 04:00 98.7 82 20 103/55 (71) 94 08/14/18 00:00 98.5 86 20 105/52 (69) 100 08/13/18 21:00 Room Air 08/13/18 20:56 86 94/44 08/13/18 20:00 98.3 90 24 94/44 (61) 100 08/13/18 16:00 98.7 86 24 90/45 (60) 100 Intake and Output 08/13/18 08/14/18 19:00 07:00 Intake Total 480 ml Output Total 250 ml Balance 480 ml -250 ml Intake Oral 480 ml Output Urine Total 250 ml # Voids 2 General Appearance: WD/WN HEENT: normocephalic, anicteric Respiratory/Chest: chest wall non-tender, lungs clear Cardiovascular: normal peripheral pulses, normal rate Abdomen: normal bowel sounds, soft, non tender Extremities: no cyanosis Laboratory Tests 08/14/18 06:15: White Blood Count 9.6, Red Blood Count 3.25L, Hemoglobin 9.0L, Hematocrit 27.1L , Mean Corpuscular Volume 84, Mean Corpuscular Hemoglobin 27.8, Mean Corpuscular Hemoglobin Concent 33.3, Red Cell Distribution Width 13.4, Platelet Count 387, Mean Platelet Volume 6.2L, Neutrophils (%) (Auto) 76.1H, Lymphocytes (%) (Auto) 11.3L, Monocytes (%) (Auto) 7.7, Eosinophils (%) (Auto) 3.9H, Basophils (%) (Auto) 1.1, Sodium Level 138, Potassium Level 3.3L, Chloride Level 105, Carbon Dioxide Level 25, Anion Gap 8, Blood Urea Nitrogen 15, Creatinine 1.2, Estimat Glomerular Filtration Rate , Glucose Level 123H, Calcium Level 8.2L, Phosphorus Level 2.1L, Magnesium Level 1.8, Total Bilirubin 0.3, Direct Bilirubin < 0.1, Aspartate Amino Transf (AST/SGOT) 32, Alanine Aminotransferase (ALT/SGPT) 21, Alkaline Phosphatase 59, Total Protein 6.3L, Albumin 1.8L Current Medications Medications (Trade) Dose Ordered Sig/Nicole Route PRN Reason Start Time Stop Time Status Last Admin Dose Admin Acetaminophen (Tylenol) 650 mg Q4H PRN ORAL Mild Pain (Pain Scale 1-3) 08/11/18 07:15 09/10/18 07:14 08/12/18 15:44 Acetaminophen (Tylenol) 650 mg Q4H PRN ORAL temp>100 08/11/18 07:15 09/10/18 07:14 08/12/18 20:25 Acetaminophen/ Hydrocodone Bitart ([place] 7.5/325) 1 tab Q4H PRN ORAL Moderate Pain (Pain Scale 4-6) 08/11/18 07:15 08/18/18 07:14 Albuterol/ Ipratropium (Albuterol/ Ipratropium) 3 ml Q4H PRN HHN Shortness of Breath 08/13/18 11:45 08/18/18 11:44 Atorvastatin Calcium (Lipitor) 10 mg BEDTIME ORAL 08/10/18 21:00 09/09/18 20:59 08/13/18 20:47 Cefazolin Sodium 1 gm/Dextrose 55 ml @ 110 mls/hr Q8HR IVPB 08/11/18 14:00 08/18/18 13:59 08/14/18 06:05 Docusate Sodium (Colace) 100 mg THREE TIMES A DAY ORAL 08/09/18 18:00 09/08/18 17:59 08/14/18 08:07 Enoxaparin Sodium (Lovenox) 30 mg DAILY SUBQ 08/11/18 10:00 08/21/18 09:59 08/14/18 08:13 Lansoprazole (Prevacid) 30 mg Q12HR ORAL 08/13/18 09:00 09/12/18 08:59 08/14/18 08:07 Lisinopril (Zestril) 10 mg DAILY ORAL 08/12/18 09:00 09/11/18 08:59 08/13/18 08:20 Lorazepam (Ativan) 0.5 mg Q6H PRN ORAL For Anxiety 08/12/18 14:30 08/19/18 14:29 Magnesium Hydroxide (Mom) 30 ml DAILYPRN PRN ORAL Constipation 08/11/18 07:15 09/10/18 07:14 Memantine (Namenda) 10 mg BID ORAL 08/12/18 18:00 09/11/18 17:59 08/14/18 08:07 Metoprolol Tartrate (Lopressor) 25 mg Q12HR ORAL 08/12/18 09:00 09/09/18 20:59 08/14/18 08:08 Polyethylene Glycol (Miralax) 17 gm DAILYPRN PRN ORAL Constipation 08/09/18 14:00 09/08/18 13:59 Tamsulosin HCl (Flomax) 0.4 mg BEDTIME ORAL 08/09/18 21:00 09/08/18 20:59 08/13/18 20:47 Temazepam (Restoril) 15 mg HSPRN PRN ORAL Insomnia 08/09/18 17:00 08/16/18 16:59 Margie Britton MD August 14, 2018 13:30
--- NOTE | 2018-08-14 13:37 | General Progress Note ---
Assessment/Plan Problem List: (1) UTI (urinary tract infection) ICD Codes: N39.0 - Urinary tract infection, site not specified SNOMED: 04705409 (2) Decubitus ulcer, heel, left, unstageable ICD Codes: L89.620 - Pressure ulcer of left heel, unstageable SNOMED: 737597032 (3) Phimosis ICD Codes: N47.1 - Phimosis SNOMED: 761668611 (4) Fever ICD Codes: R50.9 - Fever, unspecified SNOMED: 638901667 Qualifiers: Qualified Codes: R50.9 - Fever, unspecified (5) Closed left hip fracture ICD Codes: S72.002A - Fracture of unspecified part of neck of left femur, initial encounter for closed fracture SNOMED: 656882452 Qualifiers: Qualified Codes: S72.002A - Fracture of unspecified part of neck of left femur, initial encounter for closed fracture (6) COPD (chronic obstructive pulmonary disease) ICD Codes: J44.9 - Chronic obstructive pulmonary disease, unspecified SNOMED: 51024531 Status: stable, progressing Assessment/Plan: pt diet abx cbc bmp am aru eval Subjective Constitutional: Reports: weakness Allergies: Coded Allergies: No Known Allergies (Unverified , 07/19/17) All Systems: reviewed and negative except above Subjective sl hip pain s/p sx Objective Last 24 Hour Vital Signs Date Time Temp Pulse Resp B/P (MAP) Pulse Ox O2 Delivery O2 Flow Rate FiO2 08/14/18 12:00 98.1 89 18 133/78 (96) 96 08/14/18 09:00 Room Air 08/14/18 08:14 103/55 08/14/18 08:08 82 103/55 08/14/18 08:00 97.8 93 19 141/80 (100) 95 08/14/18 04:00 98.7 82 20 103/55 (71) 94 08/14/18 00:00 98.5 86 20 105/52 (69) 100 08/13/18 21:00 Room Air 08/13/18 20:56 86 94/44 08/13/18 20:00 98.3 90 24 94/44 (61) 100 08/13/18 16:00 98.7 86 24 90/45 (60) 100 Intake and Output 08/13/18 08/14/18 19:00 07:00 Intake Total 480 ml Output Total 250 ml Balance 480 ml -250 ml Intake Oral 480 ml Output Urine Total 250 ml # Voids 2 Laboratory Tests 08/14/18 06:15: White Blood Count 9.6, Red Blood Count 3.25L, Hemoglobin 9.0L, Hematocrit 27.1L , Mean Corpuscular Volume 84, Mean Corpuscular Hemoglobin 27.8, Mean Corpuscular Hemoglobin Concent 33.3, Red Cell Distribution Width 13.4, Platelet Count 387, Mean Platelet Volume 6.2L, Neutrophils (%) (Auto) 76.1H, Lymphocytes (%) (Auto) 11.3L, Monocytes (%) (Auto) 7.7, Eosinophils (%) (Auto) 3.9H, Basophils (%) (Auto) 1.1, Sodium Level 138, Potassium Level 3.3L, Chloride Level 105, Carbon Dioxide Level 25, Anion Gap 8, Blood Urea Nitrogen 15, Creatinine 1.2, Estimat Glomerular Filtration Rate , Glucose Level 123H, Calcium Level 8.2L, Phosphorus Level 2.1L, Magnesium Level 1.8, Total Bilirubin 0.3, Direct Bilirubin < 0.1, Aspartate Amino Transf (AST/SGOT) 32, Alanine Aminotransferase (ALT/SGPT) 21, Alkaline Phosphatase 59, Total Protein 6.3L, Albumin 1.8L Height (Feet): 5 Height (Inches): 8.00 Weight (Pounds): 120 General Appearance: lethargic EENT: normal ENT inspection Neck: normal alignment Cardiovascular: normal peripheral pulses, normal rate, regular rhythm Respiratory/Chest: chest wall non-tender, lungs clear, normal breath sounds Abdomen: normal bowel sounds, non tender, soft Extremities: normal inspection Edema: no edema noted Arm (L), no edema noted Arm (R), no edema noted Leg (L), no edema noted Leg (R), no edema noted Pedal (L), no edema noted Pedal (R), no edema noted Generalized Neurologic: motor weakness Skin: normal pigmentation, warm/dry Samir CramerPratibha August 14, 2018 13:37
--- NOTE | 2018-08-14 14:56 | NUR ---
NURSE NOTES: Dressings changed on bilateral heels and left hip per orders. Incentive spirometer used.
--- NOTE | 2018-08-14 15:20 | Nephrology Progress Note ---
Assessment/Plan Problem List: (1) ATN (acute tubular necrosis) (2) UTI (urinary tract infection) (3) Severe protein-calorie malnutrition (4) BPH (benign prostatic hyperplasia) (5) Phimosis (6) Closed left hip fracture Assessment: surgery 08/11 (7) Cardiomyopathy Assessment Acute on chronic renal failure- Cardiomyopathy UTI , Fever Closed left hip fracture Phimosis Plan K Phos IV St eval Anemia agrawal- Protonix monitor renal parameters per orders per ortho Global left ventricular hypokinesis. Distal septal and apical akinesis to extent visualized. Left ventricular ejection fraction estimated to be 30-35 %. Subjective ROS Limited/Unobtainable: No Objective Objective Last 24 Hour Vital Signs Date Time Temp Pulse Resp B/P (MAP) Pulse Ox O2 Delivery O2 Flow Rate FiO2 08/14/18 12:00 98.1 89 18 133/78 (96) 96 08/14/18 09:00 Room Air 08/14/18 08:14 103/55 08/14/18 08:08 82 103/55 08/14/18 08:00 97.8 93 19 141/80 (100) 95 08/14/18 04:00 98.7 82 20 103/55 (71) 94 08/14/18 00:00 98.5 86 20 105/52 (69) 100 08/13/18 21:00 Room Air 08/13/18 20:56 86 94/44 08/13/18 20:00 98.3 90 24 94/44 (61) 100 08/13/18 16:00 98.7 86 24 90/45 (60) 100 Intake and Output 08/13/18 08/14/18 19:00 07:00 Intake Total 480 ml Output Total 250 ml Balance 480 ml -250 ml Intake Oral 480 ml Output Urine Total 250 ml # Voids 2 Laboratory Tests 08/14/18 06:15: White Blood Count 9.6, Red Blood Count 3.25L, Hemoglobin 9.0L, Hematocrit 27.1L , Mean Corpuscular Volume 84, Mean Corpuscular Hemoglobin 27.8, Mean Corpuscular Hemoglobin Concent 33.3, Red Cell Distribution Width 13.4, Platelet Count 387, Mean Platelet Volume 6.2L, Neutrophils (%) (Auto) 76.1H, Lymphocytes (%) (Auto) 11.3L, Monocytes (%) (Auto) 7.7, Eosinophils (%) (Auto) 3.9H, Basophils (%) (Auto) 1.1, Sodium Level 138, Potassium Level 3.3L, Chloride Level 105, Carbon Dioxide Level 25, Anion Gap 8, Blood Urea Nitrogen 15, Creatinine 1.2, Estimat Glomerular Filtration Rate , Glucose Level 123H, Calcium Level 8.2L, Phosphorus Level 2.1L, Magnesium Level 1.8, Total Bilirubin 0.3, Direct Bilirubin < 0.1, Aspartate Amino Transf (AST/SGOT) 32, Alanine Aminotransferase (ALT/SGPT) 21, Alkaline Phosphatase 59, Total Protein 6.3L, Albumin 1.8L Height (Feet): 5 Height (Inches): 8.00 Weight (Pounds): 120 General Appearance: no apparent distress Cardiovascular: normal rate Respiratory/Chest: decreased breath sounds Abdomen: soft Objective no change Jose Guadalupe Santiago MD August 14, 2018 15:20
--- NOTE | 2018-08-14 15:50 | NUR ---
NURSE NOTES:NURSE NOTES:WOUND CARE NOTES:Pt presented on admission with multiple pressure injuries. Non-blanchable erythema without fluctuance or induration noted to sacrum. Non-tender when minimally palpated. Resolving pressure injury L ischium. Base of wound is maureen pink with fluctuance .Pt denied tenderness when affected area palpated.Periwound without erythema or induration. Reabsorbed DTPI noted to plantar R heel. Maroon discoloration over scarring from previous wound. Site is tender when palpated.(L)3.8cm x (W)4cm. Non-Blanchable erythema with delineated margins noted to L heel.Base of wound is fluctuant .Pt verbalized pain when L heel minimally palpated (L)4cm x (W)3cm. No other areas of skin concerns noted. Tx.Plan: Apply Moisture Barrier Paste to sacrum. Cover with Optifoam drsg. Change every 3 days and prn. Apply Cavilon Skin Barrier to L heel. Cover with Optifoam drsg. Change every 7 days and prn. Apply Cavilon Skin Barrier to R heel and Plantar R heel. Cover with Optifoam drsg . Change every 7 days and prn. APM/BERNADETTE Mattress overlay. Reposition at least every 2hours or as tolerated. Off-load heels with pillow.
--- NOTE | 2018-08-14 15:53 | Infectious Diseases Prog Note ---
Assessment/Plan Assessment/Plan ASSESSMENT: The patient is a 78-year-old male with, Left hip intertrochanteric fracture. Low-grade feverx 1 ( postop ) probable urinary tract infection UCx: 50 K P Mirabilis (R nitro, bactrim, amp ; otherwise S) Hip Fx 5/3 Sp L Hip ORIF BPH Chronic obstructive pulmonary disease Diabetes History of chronic left shoulder dislocation Dementia Cardiomyopathy with ejection fraction 30 to 35% PLAN: Cont the patient on IV Ancef d# 4/ 7 , upon DC will change to Keflex -5/3 Sp IV Zosyn d# 3 Monitor CBC Monitor BMP. Monitor cultures (blood) Monitor chest x-ray Ortho fup Subjective Allergies: Coded Allergies: No Known Allergies (Unverified , 07/19/17) Subjective afebrile >36hrs no leukocytosis Objective Vital Signs Last 24 Hour Vital Signs Date Time Temp Pulse Resp B/P (MAP) Pulse Ox O2 Delivery O2 Flow Rate FiO2 08/14/18 12:00 98.1 89 18 133/78 (96) 96 08/14/18 09:00 Room Air 08/14/18 08:14 103/55 08/14/18 08:08 82 103/55 08/14/18 08:00 97.8 93 19 141/80 (100) 95 08/14/18 04:00 98.7 82 20 103/55 (71) 94 08/14/18 00:00 98.5 86 20 105/52 (69) 100 08/13/18 21:00 Room Air 08/13/18 20:56 86 94/44 08/13/18 20:00 98.3 90 24 94/44 (61) 100 08/13/18 16:00 98.7 86 24 90/45 (60) 100 Height (Feet): 5 Height (Inches): 8.00 Weight (Pounds): 120 Objective HEAD AND NECK: No jugular venous distention. LUNGS: Clear. CARDIOVASCULAR: Regular S1 and S2 with no gallop or murmur. ABDOMEN: Soft. EXTREMITIES: Status post left hip ORIF Laboratory Tests Test 08/14/18 06:15 White Blood Count 9.6 K/UL (4.8-10.8) Red Blood Count 3.25 M/UL (4.70-6.10) L Hemoglobin 9.0 G/DL (14.2-18.0) L Hematocrit 27.1 % (42.0-52.0) L Mean Corpuscular Volume 84 FL (80-99) Mean Corpuscular Hemoglobin 27.8 PG (27.0-31.0) Mean Corpuscular Hemoglobin Concent 33.3 G/DL (32.0-36.0) Red Cell Distribution Width 13.4 % (11.6-14.8) Platelet Count 387 K/UL (150-450) Mean Platelet Volume 6.2 FL (6.5-10.1) L Neutrophils (%) (Auto) 76.1 % (45.0-75.0) H Lymphocytes (%) (Auto) 11.3 % (20.0-45.0) L Monocytes (%) (Auto) 7.7 % (1.0-10.0) Eosinophils (%) (Auto) 3.9 % (0.0-3.0) H Basophils (%) (Auto) 1.1 % (0.0-2.0) Sodium Level 138 MMOL/L (136-145) Potassium Level 3.3 MMOL/L (3.5-5.1) L Chloride Level 105 MMOL/L (98-107) Carbon Dioxide Level 25 MMOL/L (21-32) Anion Gap 8 mmol/L (5-15) Blood Urea Nitrogen 15 mg/dL (7-18) Creatinine 1.2 MG/DL (0.55-1.30) Estimat Glomerular Filtration Rate mL/min (>60) Glucose Level 123 MG/DL (74-106) H Calcium Level 8.2 MG/DL (8.5-10.1) L Phosphorus Level 2.1 MG/DL (2.5-4.9) L Magnesium Level 1.8 MG/DL (1.8-2.4) Total Bilirubin 0.3 MG/DL (0.2-1.0) Direct Bilirubin < 0.1 MG/DL (0.0-0.3) Aspartate Amino Transf (AST/SGOT) 32 U/L (15-37) Alanine Aminotransferase (ALT/SGPT) 21 U/L (12-78) Alkaline Phosphatase 59 U/L (46-116) Total Protein 6.3 G/DL (6.4-8.2) L Albumin 1.8 G/DL (3.4-5.0) L Current Medications Medications (Trade) Dose Ordered Sig/Nicole Route PRN Reason Start Time Stop Time Status Last Admin Dose Admin Acetaminophen (Tylenol) 650 mg Q4H PRN ORAL Mild Pain (Pain Scale 1-3) 08/11/18 07:15 09/10/18 07:14 08/12/18 15:44 Acetaminophen (Tylenol) 650 mg Q4H PRN ORAL temp>100 08/11/18 07:15 09/10/18 07:14 08/12/18 20:25 Acetaminophen/ Hydrocodone Bitart ([place] 7.5/325) 1 tab Q4H PRN ORAL Moderate Pain (Pain Scale 4-6) 08/11/18 07:15 08/18/18 07:14 Albuterol/ Ipratropium (Albuterol/ Ipratropium) 3 ml Q4H PRN HHN Shortness of Breath 08/13/18 11:45 08/18/18 11:44 Atorvastatin Calcium (Lipitor) 10 mg BEDTIME ORAL 08/10/18 21:00 09/09/18 20:59 08/13/18 20:47 Cefazolin Sodium 1 gm/Dextrose 55 ml @ 110 mls/hr Q8HR IVPB 08/11/18 14:00 08/18/18 13:59 08/14/18 14:14 Docusate Sodium (Colace) 100 mg THREE TIMES A DAY ORAL 08/09/18 18:00 09/08/18 17:59 08/14/18 14:15 Enoxaparin Sodium (Lovenox) 40 mg DAILY SUBQ 08/15/18 09:00 09/14/18 08:59 Lansoprazole (Prevacid) 30 mg Q12HR ORAL 08/13/18 09:00 09/12/18 08:59 08/14/18 08:07 Lisinopril (Zestril) 10 mg DAILY ORAL 08/12/18 09:00 09/11/18 08:59 08/13/18 08:20 Lorazepam (Ativan) 0.5 mg Q6H PRN ORAL For Anxiety 08/12/18 14:30 08/19/18 14:29 Magnesium Hydroxide (Mom) 30 ml DAILYPRN PRN ORAL Constipation 08/11/18 07:15 09/10/18 07:14 Memantine (Namenda) 10 mg BID ORAL 08/12/18 18:00 09/11/18 17:59 08/14/18 08:07 Metoprolol Tartrate (Lopressor) 25 mg Q12HR ORAL 08/12/18 09:00 09/09/18 20:59 08/14/18 08:08 Polyethylene Glycol (Miralax) 17 gm DAILYPRN PRN ORAL Constipation 08/09/18 14:00 09/08/18 13:59 Potassium Phosphate 30 mm/ Sodium Chloride 285 ml @ 47.5 mls/hr ONCE ONCE IV 08/14/18 17:00 08/14/18 22:59 Tamsulosin HCl (Flomax) 0.4 mg BEDTIME ORAL 08/09/18 21:00 09/08/18 20:59 08/13/18 20:47 Temazepam (Restoril) 15 mg HSPRN PRN ORAL Insomnia 08/09/18 17:00 08/16/18 16:59 Radha Barron M.D. August 14, 2018 15:53
[2018-08-14] MEDS ORDERED: Potassium Phosphate 30 MM in NS 275 ML IV ONE (17:00)
--- NOTE | 2018-08-14 19:34 | NUR ---
HAND-OFF: Report given to Shelia RN.
--- NOTE | 2018-08-14 19:45 | NUR ---
NURSE NOTES: Received pt from PAMELA Moreira. Pt is awake, in bed resting. Pt is on NS 2LMwith incentive spirometer at bedside. Addendum: 08/14/18 at 2022 by Shelia Soto RN Dressing on L hip is dry and intact, optifoams noted on bilateral heels. Pt has 2 patent IV sites R AC 20G, and R FA 22G. Bed is locked at the lowest position, side rails up x2, and call light is within reach. Will continue to monitor.
[2018-08-14] MEDS: Tamsulosin 0.4mg cap ORAL SCH (21:41)
--- NOTE | 2018-08-15 01:30 | Progress Note ---
DATE: 08/14/2018 NOTE: UNCLEAR AUDIO SUBJECTIVE: This is a 78-year-old male patient with fracture of the left hip. This patient continues to have some confusion, disorganized thought process and mood lability worsened by stress of his medical illness. . This patient seems to have lot of anxiety, depression, and mood lability. He still has some depression and mood lability worsened by stress of his medical illness and that is why he does require daily psychiatric consultation. MENTAL STATUS EXAMINATION: The patient is a 78-year-old male. Appearance is disheveled. Attitude, irritable and agitated. Affect, guarded and restricted. Intellect, poor. Mood, depressed and anxious. Motor activity, psychomotor agitation. Attention span is poor. Orientation x2. Thought processes, disorganized and illogical. Insight and judgment is poor. DIAGNOSIS: Paranoid schizophrenia with acute exacerbation. PLAN: Treat him with the medication regimen . Provide him with 20 minutes of reality-based supportive psychotherapy and 20 minutes of cognitive behavioral therapy to help him identify his automatic negative thoughts and help him convert those negative thoughts to more positive thoughts to reduce depression, anxiety, and mood lability. Continue his psychotropic medications to improve his mood and reduce anxiety. Continue . He is increasingly anxious secondary to his musculoskeletal injury. Seen and assessed at bedside. Lea Dodd M.D. DR: ADRIÁN JOB#: [id number] CC:
[2018-08-15 04:00] VITALS: BP 111/66
[2018-08-15] MEDS: ceFAZolin sod 1 GM in D5W 55 ML IVPB SCH ×2 (05:26→12:13)
[2018-08-15 06:33] LABS: BASOPHILS % (AUTO) 1.6 % (0.0-2.0); EOSINOPHILS % (AUTO) 4.4 % (0.0-3.0); HEMATOCRIT 30.4 % (42.0-52.0); HEMOGLOBIN 10.2 G/DL (14.2-18.0); MEAN CORPUSCULAR VOLUME 83 FL (80-99); MONOCYTES % (AUTO) 8.2 % (1.0-10.0); NEUTROPHILS % (AUTO) 72.8 % (45.0-75.0); PLATELET COUNT 481 K/UL (150-450); RED BLOOD COUNT 3.64 M/UL (4.70-6.10); RED CELL DISTRIBUTION WIDTH 14.1 % (11.6-14.8); WHITE BLOOD COUNT 8.3 K/UL (4.8-10.8)
[2018-08-15 06:41] LABS: ANION GAP 10 mmol/L (5-15); BLOOD UREA NITROGEN 13 mg/dL (7-18); CALCIUM 8.2 MG/DL (8.5-10.1); CARBON DIOXIDE 25 MMOL/L (21-32); CHLORIDE 106 MMOL/L (98-107); CREATININE 1.3 MG/DL (0.55-1.30); POTASSIUM 3.6 MMOL/L (3.5-5.1); SODIUM 141 MMOL/L (136-145)
--- NOTE | 2018-08-15 07:36 | NUR ---
HAND-OFF: Report given to PAMELA Whitman.
[2018-08-15 08:00] VITALS: BP 127/61
--- NOTE | 2018-08-15 08:10 | NUR ---
NURSE NOTES: Received pt from PAMELA angel with stable condition. pt is in bed with no sob nor in any form of distress noted. denies any pain at this time. Bed in lowest position. bed alarm on. will continue to monitor
[2018-08-15] MEDS ORDERED: Enoxaparin 40mg Inj SUBQ SCH (09:00)
[2018-08-15] MEDS: Docusate 100mg cap ORAL SCH ×3 (09:35→17:36)
[2018-08-15] MEDS: Metoprolol 25mg tab ORAL SCH (09:35)
[2018-08-15] MEDS: Memantine 10mg tab ORAL SCH ×2 (09:35→17:36)
[2018-08-15] MEDS: Lisinopril 10mg tab ORAL SCH (09:35)
--- NOTE | 2018-08-15 10:20 | Cardiac Electrophysiology PN ---
Assessment/Plan Assessment/Plan 1. Cardiomyopathy with ejection fraction of 30% to 35% on Echo No prior myocardial infarction or congestive heart failure. On Lopressor 12.5 bid and Lisinopril 5 daily Off diuretics as the patient clinically is euvolemic. 2. Renal failure. Creatinine of 1.5. Improved to 1.3 3. Hip fracture.S/P ORIF. Going to [facility] RN Subjective Subjective Alert in NAD. No CP or SOB. Objective Last 24 Hour Vital Signs Date Time Temp Pulse Resp B/P (MAP) Pulse Ox O2 Delivery O2 Flow Rate FiO2 08/15/18 09:35 94 127/61 08/15/18 09:35 127/61 08/15/18 09:00 Room Air 08/15/18 08:21 Room Air 08/15/18 08:00 97.3 94 19 127/61 (83) 98 08/15/18 04:00 98.1 93 19 111/66 (81) 93 08/14/18 23:55 98.4 90 18 108/55 (72) 98 08/14/18 21:41 98 120/69 08/14/18 21:00 Room Air 08/14/18 20:18 97 08/14/18 20:00 99.4 98 18 120/69 (86) 93 08/14/18 19:59 Nasal Cannula 2.0 28 08/14/18 19:58 97 20 Nasal Cannula 2.0 28 08/14/18 16:00 97.9 86 18 129/81 (97) 97 08/14/18 12:00 98.1 89 18 133/78 (96) 96 Intake and Output 08/14/18 08/15/18 18:59 06:59 Intake Total 500 ml 110 ml Balance 500 ml 110 ml Intake Oral 500 ml IV Total 110 ml # Voids 8 5 Laboratory Tests Test 08/15/18 05:55 White Blood Count 8.3 K/UL (4.8-10.8) Red Blood Count 3.64 M/UL (4.70-6.10) L Hemoglobin 10.2 G/DL (14.2-18.0) L Hematocrit 30.4 % (42.0-52.0) L Mean Corpuscular Volume 83 FL (80-99) Mean Corpuscular Hemoglobin 28.1 PG (27.0-31.0) Mean Corpuscular Hemoglobin Concent 33.7 G/DL (32.0-36.0) Red Cell Distribution Width 14.1 % (11.6-14.8) Platelet Count 481 K/UL (150-450) H Mean Platelet Volume 5.9 FL (6.5-10.1) L Neutrophils (%) (Auto) 72.8 % (45.0-75.0) Lymphocytes (%) (Auto) 13.0 % (20.0-45.0) L Monocytes (%) (Auto) 8.2 % (1.0-10.0) Eosinophils (%) (Auto) 4.4 % (0.0-3.0) H Basophils (%) (Auto) 1.6 % (0.0-2.0) Sodium Level 141 MMOL/L (136-145) Potassium Level 3.6 MMOL/L (3.5-5.1) Chloride Level 106 MMOL/L (98-107) Carbon Dioxide Level 25 MMOL/L (21-32) Anion Gap 10 mmol/L (5-15) Blood Urea Nitrogen 13 mg/dL (7-18) Creatinine 1.3 MG/DL (0.55-1.30) Estimat Glomerular Filtration Rate mL/min (>60) Glucose Level 135 MG/DL (74-106) H Calcium Level 8.2 MG/DL (8.5-10.1) L Objective HEAD AND NECK: No JVD LUNGS: Clear. CARDIOVASCULAR: Regular S1 and S2 with no gallop or murmur. ABDOMEN: Soft. EXTREMITIES: Status post left hip ORIF Charly Krueger MD August 15, 2018 10:20
--- NOTE | 2018-08-15 11:12 | NUR ---
ST NOTE: BEDSIDE SWALLOW EVAL RECEIVED BEDSIDE SWALLOW EVAL CHART REVIEWED PRIOR THE EVALUATION. PT IS A 78-YEAR-OLD MALE WHO WAS ADMITTED DUE TO FRACTURE L-HIP. DYSPHAGIA RISK FACTORS: COPD, DMII, DEMENTIA, PSYCH(PARANOID SCHIZOPHRENIA, INSOMIA). PLOF:PT RESIDES AT SNF. PER CHART, PT IS ON REGULAR WITH THIN LIQUIDS DIET. PER PT'S POLST: DNR, SELECTIVE TX, NO ARTIFICIAL MEANS OF NUTRITION, INCLUDING FEEDING TUBES. CURRENT STATUS: PT SEEN AT BEDSIDE IN AM. ALERT, COOPERATIVE, FOLLOWS SIMPLE DIRECTIONS, BUT SEEMS CONFUSED. ABLE TO EXPRESS WANTS AND NEEDS VERBALLY. GIVEN PO TRIALS: THIN(CUP-SELF X 1), NECTAR THICK(TSP) AND PUREE(TSP), PT REFUSED FURTHER PO TRIALS AND MASTICATED SOLID FOOD. CURRENTLY, PT IS ON HONEY THICK FULL LIQUIDS DIET. 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 ONLY A FEW TEETH. MILDLY INCREASED ORAL TRANSIT TIME(3 SECONDS) TO TRIGGER SWALLOW RESPONSE, FAIR LARYNGEAL ELEVATION, IMMEDIATE COUGHING WITH THIN LIQUID WAS NOTED, NO OVERT S/S OF ASPIRATION WITH NECTAR THICK AND PUREED. PT REFUSED MASTICATED FOOD. SOME RISK FOR ASPIRATION. RECOMMENDATIONS: 1. SLOWLY INITIATE CCHO(MED) MOIST PUREE WITH NECTAR THICK LIQUIDS 2. ASPIRATION PRECAUTIONS 3. CONTINUE PO TRIALS AND MEAL OBSERVATION. 4. MODIFIED BARIUM SWALLOW STUDY IF NEEDED. D/W PT AND RN, ALLISON JIN. POSTED ASPIRATION PRECAUTIONS SIGN.
--- NOTE | 2018-08-15 11:36 | Surgery Progress Note ---
Surgery Progress Note Subjective Additional Comments no acute events. comfortable. stable. pain improved. tolerating diet Objective Last 24 Hour Vital Signs Date Time Temp Pulse Resp B/P (MAP) Pulse Ox O2 Delivery O2 Flow Rate FiO2 08/15/18 09:35 94 127/61 08/15/18 09:35 127/61 08/15/18 09:00 Room Air 08/15/18 08:21 Room Air 08/15/18 08:00 97.3 94 19 127/61 (83) 98 08/15/18 04:00 98.1 93 19 111/66 (81) 93 08/14/18 23:55 98.4 90 18 108/55 (72) 98 08/14/18 21:41 98 120/69 08/14/18 21:00 Room Air 08/14/18 20:18 97 08/14/18 20:00 99.4 98 18 120/69 (86) 93 08/14/18 19:59 Nasal Cannula 2.0 28 08/14/18 19:58 97 20 Nasal Cannula 2.0 28 08/14/18 16:00 97.9 86 18 129/81 (97) 97 08/14/18 12:00 98.1 89 18 133/78 (96) 96 I&O Intake and Output 08/14/18 08/15/18 19:00 07:00 Intake Total 500 ml 110 ml Balance 500 ml 110 ml Intake Oral 500 ml IV Total 110 ml # Voids 8 5 Dressing: dry Wound: clean Cardiovascular: RSR Respiratory: clear Abdomen: soft, flat, non-tender, present bowel sounds Extremities: no tenderness, no cyanosis Laboratory Tests Test 08/15/18 05:55 White Blood Count 8.3 K/UL (4.8-10.8) Red Blood Count 3.64 M/UL (4.70-6.10) L Hemoglobin 10.2 G/DL (14.2-18.0) L Hematocrit 30.4 % (42.0-52.0) L Mean Corpuscular Volume 83 FL (80-99) Mean Corpuscular Hemoglobin 28.1 PG (27.0-31.0) Mean Corpuscular Hemoglobin Concent 33.7 G/DL (32.0-36.0) Red Cell Distribution Width 14.1 % (11.6-14.8) Platelet Count 481 K/UL (150-450) H Mean Platelet Volume 5.9 FL (6.5-10.1) L Neutrophils (%) (Auto) 72.8 % (45.0-75.0) Lymphocytes (%) (Auto) 13.0 % (20.0-45.0) L Monocytes (%) (Auto) 8.2 % (1.0-10.0) Eosinophils (%) (Auto) 4.4 % (0.0-3.0) H Basophils (%) (Auto) 1.6 % (0.0-2.0) Sodium Level 141 MMOL/L (136-145) Potassium Level 3.6 MMOL/L (3.5-5.1) Chloride Level 106 MMOL/L (98-107) Carbon Dioxide Level 25 MMOL/L (21-32) Anion Gap 10 mmol/L (5-15) Blood Urea Nitrogen 13 mg/dL (7-18) Creatinine 1.3 MG/DL (0.55-1.30) Estimat Glomerular Filtration Rate mL/min (>60) Glucose Level 135 MG/DL (74-106) H Calcium Level 8.2 MG/DL (8.5-10.1) L Plan Problems: (1) Anemia (2) MDRO (multiple drug resistant organisms) resistance (3) ATN (acute tubular necrosis) (4) Decubitus ulcer, heel, left, unstageable (5) Sepsis (6) UTI (urinary tract infection) (7) COPD (chronic obstructive pulmonary disease) (8) Balanoposthitis (9) Severe protein-calorie malnutrition (10) BPH (benign prostatic hyperplasia) (11) Phimosis (12) Fever (13) Decubitus ulcer Assessment & Plan: Patient presents with multiple wounds on admission. Right heel with DTI Sacral redness with seemingly healing prior wound/DTI left hip wound healing Tx Plan: Apply foam dressings to bilateral heels q3 days heel protectors off load pressure with pillow turn q2h air soft mattress encourage patient to mobilize when possible (14) Closed left hip fracture Assessment & Plan: s/p left hip orif by ortho recovering Bentley Enrique August 15, 2018 11:36
[2018-08-15 12:00] VITALS: BP 120/58
--- NOTE | 2018-08-15 13:31 | Pulmonology Progress Note ---
Assessment/Plan Problems: (1) Closed left hip fracture (2) COPD (chronic obstructive pulmonary disease) (3) BPH (benign prostatic hyperplasia) (4) Severe protein-calorie malnutrition (5) Decubitus ulcer Assessment/Plan no new complains all reviewed tolerated surgery pain management titrate fio2 to sat of 92% dvt prophylaxis wound care dc planning Subjective ROS Limited/Unobtainable: No Allergies: Coded Allergies: No Known Allergies (Unverified , 07/19/17) Objective Last 24 Hour Vital Signs Date Time Temp Pulse Resp B/P (MAP) Pulse Ox O2 Delivery O2 Flow Rate FiO2 08/15/18 09:35 94 127/61 08/15/18 09:35 127/61 08/15/18 09:00 Room Air 08/15/18 08:21 Room Air 08/15/18 08:00 97.3 94 19 127/61 (83) 98 08/15/18 04:00 98.1 93 19 111/66 (81) 93 08/14/18 23:55 98.4 90 18 108/55 (72) 98 08/14/18 21:41 98 120/69 08/14/18 21:00 Room Air 08/14/18 20:18 97 08/14/18 20:00 99.4 98 18 120/69 (86) 93 08/14/18 19:59 Nasal Cannula 2.0 28 08/14/18 19:58 97 20 Nasal Cannula 2.0 28 08/14/18 16:00 97.9 86 18 129/81 (97) 97 Intake and Output 08/14/18 08/15/18 19:00 07:00 Intake Total 500 ml 110 ml Balance 500 ml 110 ml Intake Oral 500 ml IV Total 110 ml # Voids 8 5 General Appearance: WD/WN HEENT: normocephalic, atraumatic Respiratory/Chest: chest wall non-tender, lungs clear Cardiovascular: normal peripheral pulses, normal rate Abdomen: normal bowel sounds, soft, non tender Genitourinary: normal external genitalia Skin: no rash 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 Laboratory Tests 08/15/18 05:55: White Blood Count 8.3, Red Blood Count 3.64L, Hemoglobin 10.2L, Hematocrit 30.4L , Mean Corpuscular Volume 83, Mean Corpuscular Hemoglobin 28.1, Mean Corpuscular Hemoglobin Concent 33.7, Red Cell Distribution Width 14.1, Platelet Count 481H, Mean Platelet Volume 5.9L, Neutrophils (%) (Auto) 72.8, Lymphocytes (%) (Auto) 13.0L, Monocytes (%) (Auto) 8.2, Eosinophils (%) (Auto) 4.4H, Basophils (%) (Auto) 1.6, Sodium Level 141, Potassium Level 3.6, Chloride Level 106, Carbon Dioxide Level 25, Anion Gap 10, Blood Urea Nitrogen 13, Creatinine 1.3, Estimat Glomerular Filtration Rate , Glucose Level 135H, Calcium Level 8.2L Current Medications Medications (Trade) Dose Ordered Sig/Nicole Route PRN Reason Start Time Stop Time Status Last Admin Dose Admin Acetaminophen (Tylenol) 650 mg Q4H PRN ORAL Mild Pain (Pain Scale 1-3) 08/11/18 07:15 09/10/18 07:14 08/12/18 15:44 Acetaminophen (Tylenol) 650 mg Q4H PRN ORAL temp>100 08/11/18 07:15 09/10/18 07:14 08/12/18 20:25 Acetaminophen/ Hydrocodone Bitart ([place] 7.5/325) 1 tab Q4H PRN ORAL Moderate Pain (Pain Scale 4-6) 08/11/18 07:15 08/18/18 07:14 Albuterol/ Ipratropium (Albuterol/ Ipratropium) 3 ml Q4H PRN HHN Shortness of Breath 08/13/18 11:45 08/18/18 11:44 Atorvastatin Calcium (Lipitor) 10 mg BEDTIME ORAL 08/10/18 21:00 09/09/18 20:59 08/14/18 21:42 Cefazolin Sodium 1 gm/Dextrose 55 ml @ 110 mls/hr Q8HR IVPB 08/11/18 14:00 08/18/18 13:59 08/15/18 12:13 Docusate Sodium (Colace) 100 mg THREE TIMES A DAY ORAL 08/09/18 18:00 09/08/18 17:59 08/15/18 12:13 Enoxaparin Sodium (Lovenox) 40 mg DAILY SUBQ 08/15/18 09:00 09/14/18 08:59 08/15/18 09:36 Lansoprazole (Prevacid) 30 mg Q12HR ORAL 08/13/18 09:00 09/12/18 08:59 08/15/18 09:34 Lisinopril (Zestril) 10 mg DAILY ORAL 08/12/18 09:00 09/11/18 08:59 08/15/18 09:35 Lorazepam (Ativan) 0.5 mg Q6H PRN ORAL For Anxiety 08/12/18 14:30 08/19/18 14:29 Magnesium Hydroxide (Mom) 30 ml DAILYPRN PRN ORAL Constipation 08/11/18 07:15 09/10/18 07:14 Memantine (Namenda) 10 mg BID ORAL 08/12/18 18:00 09/11/18 17:59 08/15/18 09:35 Metoprolol Tartrate (Lopressor) 25 mg Q12HR ORAL 08/12/18 09:00 09/09/18 20:59 08/15/18 09:35 Polyethylene Glycol (Miralax) 17 gm DAILYPRN PRN ORAL Constipation 08/09/18 14:00 09/08/18 13:59 Tamsulosin HCl (Flomax) 0.4 mg BEDTIME ORAL 08/09/18 21:00 09/08/18 20:59 08/14/18 21:41 Temazepam (Restoril) 15 mg HSPRN PRN ORAL Insomnia 08/09/18 17:00 08/16/18 16:59 Margie Britton MD August 15, 2018 13:31
--- NOTE | 2018-08-15 13:57 | Infectious Diseases Prog Note ---
Assessment/Plan Assessment/Plan ASSESSMENT: The patient is a 78-year-old male with, Left hip intertrochanteric fracture. Low-grade feverx 1 ( postop ) probable urinary tract infection UCx: 50 K P Mirabilis (R nitro, bactrim, amp ; otherwise S) Hip Fx /3 Sp L Hip ORIF BPH Chronic obstructive pulmonary disease Diabetes History of chronic left shoulder dislocation Dementia Cardiomyopathy with ejection fraction 30 to 35% PLAN: Switch IV Ancef d# / to PO keflex -/ Sp IV Zosyn d# 3 Monitor CBC Monitor BMP. Monitor cultures (blood) Monitor chest x-ray Ortho fup Subjective Allergies: Coded Allergies: No Known Allergies (Unverified , 07/19/17) Subjective afebrile >48 hrs no leukocytosis Objective Vital Signs Last 24 Hour Vital Signs Date Time Temp Pulse Resp B/P (MAP) Pulse Ox O2 Delivery O2 Flow Rate FiO2 08/15/18 09:35 94 127/61 08/15/18 09:35 127/61 08/15/18 09:00 Room Air 08/15/18 08:21 Room Air 08/15/18 08:00 97.3 94 19 127/61 (83) 98 08/15/18 04:00 98.1 93 19 111/66 (81) 93 08/14/18 23:55 98.4 90 18 108/55 (72) 98 08/14/18 21:41 98 120/69 08/14/18 21:00 Room Air 08/14/18 20:18 97 08/14/18 20:00 99.4 98 18 120/69 (86) 93 08/14/18 19:59 Nasal Cannula 2.0 28 08/14/18 19:58 97 20 Nasal Cannula 2.0 28 08/14/18 16:00 97.9 86 18 129/81 (97) 97 Height (Feet): 5 Height (Inches): 8.00 Weight (Pounds): 120 Objective HEAD AND NECK: No jugular venous distention. LUNGS: Clear. CARDIOVASCULAR: Regular S1 and S2 with no gallop or murmur. ABDOMEN: Soft. EXTREMITIES: Status post left hip ORIF Laboratory Tests Test 08/15/18 05:55 White Blood Count 8.3 K/UL (4.8-10.8) Red Blood Count 3.64 M/UL (4.70-6.10) L Hemoglobin 10.2 G/DL (14.2-18.0) L Hematocrit 30.4 % (42.0-52.0) L Mean Corpuscular Volume 83 FL (80-99) Mean Corpuscular Hemoglobin 28.1 PG (27.0-31.0) Mean Corpuscular Hemoglobin Concent 33.7 G/DL (32.0-36.0) Red Cell Distribution Width 14.1 % (11.6-14.8) Platelet Count 481 K/UL (150-450) H Mean Platelet Volume 5.9 FL (6.5-10.1) L Neutrophils (%) (Auto) 72.8 % (45.0-75.0) Lymphocytes (%) (Auto) 13.0 % (20.0-45.0) L Monocytes (%) (Auto) 8.2 % (1.0-10.0) Eosinophils (%) (Auto) 4.4 % (0.0-3.0) H Basophils (%) (Auto) 1.6 % (0.0-2.0) Sodium Level 141 MMOL/L (136-145) Potassium Level 3.6 MMOL/L (3.5-5.1) Chloride Level 106 MMOL/L (98-107) Carbon Dioxide Level 25 MMOL/L (21-32) Anion Gap 10 mmol/L (5-15) Blood Urea Nitrogen 13 mg/dL (7-18) Creatinine 1.3 MG/DL (0.55-1.30) Estimat Glomerular Filtration Rate mL/min (>60) Glucose Level 135 MG/DL (74-106) H Calcium Level 8.2 MG/DL (8.5-10.1) L Current Medications Medications (Trade) Dose Ordered Sig/Nicole Route PRN Reason Start Time Stop Time Status Last Admin Dose Admin Acetaminophen (Tylenol) 650 mg Q4H PRN ORAL Mild Pain (Pain Scale 1-3) 08/11/18 07:15 09/10/18 07:14 08/12/18 15:44 Acetaminophen (Tylenol) 650 mg Q4H PRN ORAL temp>100 08/11/18 07:15 09/10/18 07:14 08/12/18 20:25 Acetaminophen/ Hydrocodone Bitart ([place] 7.5/325) 1 tab Q4H PRN ORAL Moderate Pain (Pain Scale 4-6) 08/11/18 07:15 08/18/18 07:14 Albuterol/ Ipratropium (Albuterol/ Ipratropium) 3 ml Q4H PRN HHN Shortness of Breath 08/13/18 11:45 08/18/18 11:44 Atorvastatin Calcium (Lipitor) 10 mg BEDTIME ORAL 08/10/18 21:00 09/09/18 20:59 08/14/18 21:42 Cefazolin Sodium 1 gm/Dextrose 55 ml @ 110 mls/hr Q8HR IVPB 08/11/18 14:00 08/18/18 13:59 08/15/18 12:13 Docusate Sodium (Colace) 100 mg THREE TIMES A DAY ORAL 08/09/18 18:00 09/08/18 17:59 08/15/18 12:13 Enoxaparin Sodium (Lovenox) 40 mg DAILY SUBQ 08/15/18 09:00 09/14/18 08:59 08/15/18 09:36 Lansoprazole (Prevacid) 30 mg Q12HR ORAL 08/13/18 09:00 09/12/18 08:59 08/15/18 09:34 Lisinopril (Zestril) 10 mg DAILY ORAL 08/12/18 09:00 09/11/18 08:59 08/15/18 09:35 Lorazepam (Ativan) 0.5 mg Q6H PRN ORAL For Anxiety 08/12/18 14:30 08/19/18 14:29 Magnesium Hydroxide (Mom) 30 ml DAILYPRN PRN ORAL Constipation 08/11/18 07:15 09/10/18 07:14 Memantine (Namenda) 10 mg BID ORAL 08/12/18 18:00 09/11/18 17:59 08/15/18 09:35 Metoprolol Tartrate (Lopressor) 25 mg Q12HR ORAL 08/12/18 09:00 09/09/18 20:59 08/15/18 09:35 Polyethylene Glycol (Miralax) 17 gm DAILYPRN PRN ORAL Constipation 08/09/18 14:00 09/08/18 13:59 Tamsulosin HCl (Flomax) 0.4 mg BEDTIME ORAL 08/09/18 21:00 09/08/18 20:59 08/14/18 21:41 Temazepam (Restoril) 15 mg HSPRN PRN ORAL Insomnia 08/09/18 17:00 08/16/18 16:59 Radha Barron M.D. August 15, 2018 13:57
[2018-08-15] MEDS ORDERED: Cephalexin 500mg cap ORAL SCH (14:00)
--- NOTE | 2018-08-15 14:25 | Nephrology Progress Note ---
Assessment/Plan Problem List: (1) ATN (acute tubular necrosis) (2) UTI (urinary tract infection) (3) Severe protein-calorie malnutrition (4) BPH (benign prostatic hyperplasia) (5) Phimosis (6) Closed left hip fracture Assessment: surgery 08/11 (7) Cardiomyopathy Assessment Acute on chronic renal failure- Cardiomyopathy UTI , Fever Closed left hip fracture Phimosis Plan K Phos IV St eval Anemia agrawal- Protonix monitor renal parameters per orders per ortho Global left ventricular hypokinesis. Distal septal and apical akinesis to extent visualized. Left ventricular ejection fraction estimated to be 30-35 %. Subjective ROS Limited/Unobtainable: No Constitutional: Reports: malaise Objective Objective Last 24 Hour Vital Signs Date Time Temp Pulse Resp B/P (MAP) Pulse Ox O2 Delivery O2 Flow Rate FiO2 08/15/18 12:00 98.2 87 19 120/58 (78) 98 08/15/18 09:35 94 127/61 08/15/18 09:35 127/61 08/15/18 09:00 Room Air 08/15/18 08:21 Room Air 08/15/18 08:00 97.3 94 19 127/61 (83) 98 08/15/18 04:00 98.1 93 19 111/66 (81) 93 08/14/18 23:55 98.4 90 18 108/55 (72) 98 08/14/18 21:41 98 120/69 08/14/18 21:00 Room Air 08/14/18 20:18 97 08/14/18 20:00 99.4 98 18 120/69 (86) 93 08/14/18 19:59 Nasal Cannula 2.0 28 08/14/18 19:58 97 20 Nasal Cannula 2.0 28 08/14/18 16:00 97.9 86 18 129/81 (97) 97 Intake and Output 08/14/18 08/15/18 19:00 07:00 Intake Total 500 ml 110 ml Balance 500 ml 110 ml Intake Oral 500 ml IV Total 110 ml # Voids 8 5 Laboratory Tests 08/15/18 05:55: White Blood Count 8.3, Red Blood Count 3.64L, Hemoglobin 10.2L, Hematocrit 30.4L , Mean Corpuscular Volume 83, Mean Corpuscular Hemoglobin 28.1, Mean Corpuscular Hemoglobin Concent 33.7, Red Cell Distribution Width 14.1, Platelet Count 481H, Mean Platelet Volume 5.9L, Neutrophils (%) (Auto) 72.8, Lymphocytes (%) (Auto) 13.0L, Monocytes (%) (Auto) 8.2, Eosinophils (%) (Auto) 4.4H, Basophils (%) (Auto) 1.6, Sodium Level 141, Potassium Level 3.6, Chloride Level 106, Carbon Dioxide Level 25, Anion Gap 10, Blood Urea Nitrogen 13, Creatinine 1.3, Estimat Glomerular Filtration Rate , Glucose Level 135H, Calcium Level 8.2L Height (Feet): 5 Height (Inches): 8.00 Weight (Pounds): 120 General Appearance: no apparent distress Cardiovascular: normal rate Respiratory/Chest: decreased breath sounds Abdomen: soft Objective no change Jose Guadalupe Santiago MD August 15, 2018 14:25
--- NOTE | 2018-08-15 14:48 | General Progress Note ---
Assessment/Plan Problem List: (1) UTI (urinary tract infection) ICD Codes: N39.0 - Urinary tract infection, site not specified SNOMED: 47678151 (2) Decubitus ulcer, heel, left, unstageable ICD Codes: L89.620 - Pressure ulcer of left heel, unstageable SNOMED: 681677725 (3) Phimosis ICD Codes: N47.1 - Phimosis SNOMED: 934483809 (4) Fever ICD Codes: R50.9 - Fever, unspecified SNOMED: 518263640 Qualifiers: Qualified Codes: R50.9 - Fever, unspecified (5) Closed left hip fracture ICD Codes: S72.002A - Fracture of unspecified part of neck of left femur, initial encounter for closed fracture SNOMED: 759773253 Qualifiers: Qualified Codes: S72.002A - Fracture of unspecified part of neck of left femur, initial encounter for closed fracture (6) COPD (chronic obstructive pulmonary disease) ICD Codes: J44.9 - Chronic obstructive pulmonary disease, unspecified SNOMED: 88750580 Status: stable, progressing Assessment/Plan: pt diet abx dc if clear Subjective Constitutional: Reports: weakness Allergies: Coded Allergies: No Known Allergies (Unverified , 07/19/17) All Systems: reviewed and negative except above Subjective sleepy calm Objective Last 24 Hour Vital Signs Date Time Temp Pulse Resp B/P (MAP) Pulse Ox O2 Delivery O2 Flow Rate FiO2 08/15/18 12:00 98.2 87 19 120/58 (78) 98 08/15/18 09:35 94 127/61 08/15/18 09:35 127/61 08/15/18 09:00 Room Air 08/15/18 08:21 Room Air 08/15/18 08:00 97.3 94 19 127/61 (83) 98 08/15/18 04:00 98.1 93 19 111/66 (81) 93 08/14/18 23:55 98.4 90 18 108/55 (72) 98 08/14/18 21:41 98 120/69 08/14/18 21:00 Room Air 08/14/18 20:18 97 08/14/18 20:00 99.4 98 18 120/69 (86) 93 08/14/18 19:59 Nasal Cannula 2.0 28 08/14/18 19:58 97 20 Nasal Cannula 2.0 28 08/14/18 16:00 97.9 86 18 129/81 (97) 97 Intake and Output 08/14/18 08/15/18 19:00 07:00 Intake Total 500 ml 110 ml Balance 500 ml 110 ml Intake Oral 500 ml IV Total 110 ml # Voids 8 5 Laboratory Tests 08/15/18 05:55: White Blood Count 8.3, Red Blood Count 3.64L, Hemoglobin 10.2L, Hematocrit 30.4L , Mean Corpuscular Volume 83, Mean Corpuscular Hemoglobin 28.1, Mean Corpuscular Hemoglobin Concent 33.7, Red Cell Distribution Width 14.1, Platelet Count 481H, Mean Platelet Volume 5.9L, Neutrophils (%) (Auto) 72.8, Lymphocytes (%) (Auto) 13.0L, Monocytes (%) (Auto) 8.2, Eosinophils (%) (Auto) 4.4H, Basophils (%) (Auto) 1.6, Sodium Level 141, Potassium Level 3.6, Chloride Level 106, Carbon Dioxide Level 25, Anion Gap 10, Blood Urea Nitrogen 13, Creatinine 1.3, Estimat Glomerular Filtration Rate , Glucose Level 135H, Calcium Level 8.2L Height (Feet): 5 Height (Inches): 8.00 Weight (Pounds): 120 General Appearance: lethargic EENT: normal ENT inspection Neck: normal alignment Cardiovascular: normal peripheral pulses, normal rate, regular rhythm Respiratory/Chest: chest wall non-tender, lungs clear, normal breath sounds Abdomen: normal bowel sounds, non tender, soft Extremities: normal inspection Edema: no edema noted Arm (L), no edema noted Arm (R), no edema noted Leg (L), no edema noted Leg (R), no edema noted Pedal (L), no edema noted Pedal (R), no edema noted Generalized Neurologic: motor weakness Skin: normal pigmentation, warm/dry Samir Cramer DO August 15, 2018 14:48
[2018-08-15 16:00] VITALS: BP 120/50
[2018-08-15] MEDS ORDERED: ATORVASTATIN CA10 MG ORAL (16:41)
[2018-08-15] MEDS ORDERED: COLACE100 MG ORAL (16:42)
[2018-08-15] MEDS ORDERED: CEPHALEXIN500 MG ORAL (16:42)
[2018-08-15] MEDS ORDERED: NORCO 7.5-3251 EACH ORAL (16:43)
[2018-08-15] MEDS ORDERED: LOVENOX10 M4 SUBQ (16:43)
[2018-08-15] MEDS ORDERED: LANSOPRAZOLE30 MG ORAL (16:44)
[2018-08-15] MEDS ORDERED: LISINOPRIL10 MG ORAL (16:45)
--- NOTE | 2018-08-15 16:45 | Progress Note ---
DATE: 08/15/2018 SUBJECTIVE: This is a 78-year-old male patient with fracture of his left hip. This patient continues to have some confusion, disorganized thought process, and decline in cognition below his baseline. That is why he does require daily psychiatric consultation as requested by the attending physician. MENTAL STATUS EXAMINATION: This is a 78-year-old male. His appearance is disheveled. His attitude is irritable and agitated. His affect is guarded and restricted. Intellect, poor. Mood, depressed and anxious. Motor activity, psychomotor agitation. Attention span is poor. Orientation x2. Speech is pressured. Thought process, disorganized and illogical. Thought content, auditory hallucinations and paranoid delusions. Insight and judgment is poor. DIAGNOSIS: Major depressive disorder, mild, recurrent with psychotic features, rule out dementia with psychosis. PLAN: Treat him with Namenda 10 mg twice a day and Ativan 0.5 mg every 6 hours p.r.n. anxiety and agitation. Provide him with 20 minutes of cognitive behavioral therapy to help him identify his automated negative thoughts and help him convert those negative thoughts to more positive thoughts to reduce depression, anxiety, mood lability and help him more adaptive behavioral pattern. Chart reviewed. Discussed with staff. Seen and assessed in his room. Lea Dodd M.D. DR: ADRIÁN JOB#: [id number] CC:
[2018-08-15] MEDS ORDERED: MILK OF MA400 MG/51 ORAL (16:46)
[2018-08-15] MEDS ORDERED: ATIVAN0.5 MG ORAL (16:46)
[2018-08-15] MEDS ORDERED: NAMENDA10 MG ORAL (16:47)
[2018-08-15] MEDS ORDERED: RESTORIL15 MG ORAL (16:48)
[2018-08-15] MEDS ORDERED: METOPROLOL SUCC25 MG ORAL (16:48)
--- NOTE | 2018-08-15 18:20 | NUR ---
NURSE NOTES: pt discharged to [facility] picked up by ambulance with stable condition. iv heplock removed. all discharge report given to nurse bonnie and verbalized understanding. denies any pain. vss.
--- NOTE | 2018-08-16 10:06 | Discharge Summary ---
Discharge Summary Discharge Summary _ DATE OF ADMISSION: 08/09/2018 DATE OF DISCHARGE: 08/15/2018 DISCHARGED BY: Dr Cramer REASON FOR ADMISSION: 78 years old male with past medical history of COPD, hypertension, diabetes mellitus, dementia, malnutrition, mostly bedbound, retirement facility resident, was sent for evaluation of left hip pain. Patient apparently had an unwitnessed fall about 3 days ago. X-ray at the facility showed impacted left hip intertrochanteric fracture. Patient reported that left hip pain worse with movement , and better with rest. No nausea, no vomiting. No chest pain. No shortness of breath. No fevers, no chills. Patient with DNR status with selective treatment. Upon evaluation in emergency department left hip x-ray revealed intertrochanteric fracture. Chest x-ray revealed no acute cardiopulmonary pathology. Patient subsequently was admitted for evaluation and further management. CONSULTANTS: aircraft power plant assembler Dr. Sales pulmonary Dr. Britton ID specialist Dr. James physical therapy teacher Dr. Santiago ortho surgery Dr. Alcantar general surgery Dr. Enrique psychiatrist Dr. Dodd [facility] COURSE: Patient admitted to medical surgical floor. Cardiology and pulmonology consults were requested for clearance for surgery. Echocardiogram revealed ejection fraction of 30 to 35% with global left ventricular hypokinesis. Distal septal and apical akinesis. Mild aortic regurgitation , mild mitral regurgitation. Evidence of aortic stenosis. Right ventricular systolic pressure of 18. Moderately elevated left atrial pressure grade 2. Per aircraft power plant assembler , after reviewing echocardiogram , patient had cardiomyopathy with ejection fraction of 30-25 based on echocardiogram. Patient by himself denied chest pain and shortness of breath. He was able to lie flat without difficulties. Patient denied prior history of myocardial infarction or congestive heart failure. Patient started on guideline medical therapy with beta-nico and GUILLERMO inhibitor. Diuretic was hold as patient clinically appeared euvolemic. From cardiac standpoint, patient was at moderate risk for surgery and remained clinically euvolemic. Respiratory status was stable. Pulse oximetry was stable on room air. Supplemental oxygen and pulmonary toilet were on standby as needed. No evidence of COPD /asthma exacerbation. Patient was cleared for surgery. Orthopedic surgeon seen and evaluated patient and after discussion with patient , patient decided to proceed with surgery. Patient subsequently undergone left hip open reduction internal fixation . Pain management was addressed. Hip precaution maintained. Patient was working with physical therapist. Fall precaution maintained. DVT prophylaxis provided. Wound care provided as per surgeon recommendation for pressure ulcer right heel un-stageable present on admission. Dietary recommendation regarding protein supplements implemented in plan of care. Urine culture revealed Proteus. Patient started on IV antibiotics as per ID recommendation. Blood culture negative. Initial leukocytosis resolved. Infectious disease specialist switched antibiotics to oral Keflex to complete the course as outpatient. Patient undergone bedside swallow evaluation, which revealed oropharyngeal dysphagia. Patient started on diet with texture as recommended by speech therapist with strict aspiration/ reflux precaution. Modified barium swallow study was recommended , which can be done as outpatient Insurance Adviser followed with close monitoring of renal parameters and electrolytes Electrolytes corrected further as needed. Creatinine from initial 1.6 down to 1.3. All electrolytes with stable and corrected prior to discharge. Psychiatrist seen and evaluated patient, and diagnosed patient with major depressive disorder, mild, Recurrent with psychotic features. Patient provided with cognitive behavioral therapy. Psychiatric medication regimen was optimized as per psychiatrist recommendation. Bowel regimen instituted. Supportive care provided. Patient clinically stabilized and was ready for transfer back to retirement facility for continuation of care FINAL DIAGNOSES: Left hip intertrochanteric fracture Status post left hip open reduction internal fixation Cardiomyopathy with ejection fraction 30 to 25% Proteus UTI COPD BPH Severe protein calorie malnutrition Acute tubular necrosis -resolved Necrosis/acute on chronic renal failure Phimosis Decubitus ulcer right heel unstageable present on admission Major depressive disorder, mild, recurrent with psychotic features DISCHARGE MEDICATIONS: See Medication Reconciliation list. DISCHARGE INSTRUCTIONS: Patient was discharged to the retirement facility/ [facility] by ambulance Follow up with medical doctor at the facility. Aster Christensen NP August 16, 2018 10:06
== END 2018-08-15 18:33 | DRG 480 ==
LOC: EDBD 01:35 → EMR 02:00 → EDSEX 02:00 → EDBEDREQ 02:44 → 4E 04:02 → EDBEDREQ 04:15 → 4E 08:00
PROC: 0QS704Z Reposition Left Upper Femur with Internal Fixation Device, Open Approach (ICD-10-PCS; principal; 2018-08-11 07:00)
DX: S72.142A Displaced intertrochanteric fracture of left femur, initial encounter for closed fracture (principal); E43 Unspecified severe protein-calorie malnutrition; N17.0 Acute kidney failure with tubular necrosis; Z68.1 Body mass index [BMI] 19.9 or less, adult; N39.0 Urinary tract infection, site not specified; F33.0 Major depressive disorder, recurrent, mild; I42.9 Cardiomyopathy, unspecified; F20.0 Paranoid schizophrenia; W19.XXXA Unspecified fall, initial encounter; Y92.129 Unspecified place in nursing home as the place of occurrence of the external cause; L89.150 Pressure ulcer of sacral region, unstageable; N47.1 Phimosis; J44.9 Chronic obstructive pulmonary disease, unspecified; N40.0 Benign prostatic hyperplasia without lower urinary tract symptoms; I10 Essential (primary) hypertension; I34.0 Nonrheumatic mitral (valve) insufficiency; I35.1 Nonrheumatic aortic (valve) insufficiency; Z66 Do not resuscitate; B96.4 Proteus (mirabilis) (morganii) as the cause of diseases classified elsewhere; F03.90 Unspecified dementia, unspecified severity, without behavioral disturbance, psychotic disturbance, mood disturbance, and anxiety; L89.620 Pressure ulcer of left heel, unstageable; N47.6 Balanoposthitis; D64.9 Anemia, unspecified
CPT/HCPCS: 36415; 71045; 72170; 73502; 76000; 80048; 80053; 80061; 80076; 81001; 82533; 82550; 82607; 82728; 82746; 82977; 83036; 83540; 83550; 83605; 83735; 83880; 84100; 84443; 84484; 84550; 85025; 85610; 85730; 86140; 86850; 86900; 86901; 87040; 87081; 87086; 87181; 93005; 93306; 94003; 94150; 94664; 96361; 96365; 96375; 99285; J2250; J2405